=== PATIENT | female | born 1965 | race Caucasian/White ===

== ENCOUNTER 2020-03-18 13:44 | Outpatient (REF) | payer MEDICARE, MEDICAID, SELFPAY ==
--- NOTE | 2020-03-18 13:49 | MM_ITS ---
EXAMINATION: MM DIAGNOSTIC DIGITAL BREAST TOMOSYNTHESIS, right breast calcifications CLINICAL INFORMATION: Right breast follow up for calcifications. Screening left breast mammography. The lifetime risk of breast cancer based on the Tyrer-Cuzick Model is 5.9%. COMPARISON: Mammography: August 09, 2019 and studies dating back to August 25, 2011 TECHNIQUE: Digital breast tomosynthesis is performed in both the craniocaudal and mediolateral oblique views along with computer-aided detection (CAD). Synthesized 2D images are generated from the tomosynthesis. Spot magnification views of the right breast in craniocaudal and 90 degree mediolateral views also performed. FINDINGS: There are scattered areas of fibroglandular density (ACR BI-RADS breast composition Category b). Within the left breast there are no new abnormal dominant mass or suspicious grouping of microcalcifications identified. Within the right breast upper outer aspect are again noted to be stable grouping of calcifications which 6 month follow-up magnification views of the right breast are recommended. Results are provided to the patient at time of visit by the technologist. MM/MM tomosynthesis diagnostic BI IMPRESSION: Stable right breast calcifications. ASSESSMENT: BI-RADS BI-RADS 3 RECOMMENDATION: Diagnostic mammography in 6 months. This patient's information was entered into a reminder system with a target due date for their next mammogram.
== END 2020-03-18 13:45 | disposition home or self-care (01) ==
LOC: HO.MAMMO 13:44
PROVIDERS: PCP Family Medicine; Visit Provider Family Medicine
DX: R92.1 Mammographic calcification found on diagnostic imaging of breast (principal)
CPT/HCPCS: 77062; 77066

== ENCOUNTER 2020-08-14 13:25 | Outpatient (REF) | payer MEDICARE, MEDICAID, SELFPAY ==
--- NOTE | ~2020-08-14 | CT_ITS ---
EXAMINATION: CT CHEST SCREENING CLINICAL INFORMATION: Smoking history. COMPARISON: None. TECHNIQUE: Multidetector volumetric CT imaging of the chest is performed without contrast using low dose technique. Additional 2-D coronal and sagittal reformatted images and axial 3-D maximum intensity projection (MIP) images are generated on the CT workstation. This CT examination was performed using dose optimization techniques as appropriate, variously including the following: *Automated exposure control *Adjustment of mA and/or kV according to patient size (this includes techniques or standardized protocols for targeted exams where dose is matched to indication/reason for exam; i.e. extremities or head) *Use of iterative reconstruction technique DLP: 52 mGy-cm FINDINGS: LUNGS: There is a 4 mm nodule in the lingula axial image 206 series 6. There is a 4 mm nodule in the right middle lobe axial image 216 series 6. There is a 4 mm calcified lingular nodule axial image 205 series 6. There is a 3 mm calcified nodule in the right lower lobe axial image 235 series 6. There is a 2 mm peripheral or subpleural nodule in the left lower lobe axial image 240 series 6. There is a 4 mm peripheral or subpleural right lower lobe nodule adjacent to the major fissure axial image 237 series 6. There is a 3 mm right lower lobe nodule adjacent to the diaphragmatic pleural surface axial image 234 series 6. MEDIASTINUM: The mediastinum is normal. PLEURA: There is no pleural effusion. No pleural mass or thickening. AXILLA: No lymphadenopathy. UPPER ABDOMEN: Unremarkable. OSSEOUS STRUCTURES: Unremarkable. CT/CT lung screening IMPRESSION: Small pulmonary nodules. ASSESSMENT: Lung-RADS category 2. RECOMMENDATION: Annual low dose chest CT followup in 1 year recommended.
== END 2020-08-14 13:26 | disposition home or self-care (01) ==
LOC: HO.CT 13:25
PROVIDERS: PCP Family Medicine; Visit Provider Physician Assistant Medical
DX: Z12.2 Encounter for screening for malignant neoplasm of respiratory organs (principal); Z87.891 Personal history of nicotine dependence
CPT/HCPCS: 71271

== ENCOUNTER 2020-09-14 12:54 | Outpatient (REF) | payer MEDICARE, MEDICAID, SELFPAY ==
--- NOTE | ~2020-09-14 | MM_ITS ---
EXAMINATION: MM DIAGNOSTIC DIGITAL BREAST TOMOSYNTHESIS, RIGHT CLINICAL INFORMATION: Short interval six-month follow-up probable benign right breast calcifications posterior 11:00 position. The lifetime risk of breast cancer based on the Tyrer-Cuzick Model is 10%. COMPARISON: Mammography: 03/18/2020, 08/09/2019, 01/08/2019, 11/29/2018 (BI-RADS 0) 11/21/2017 TECHNIQUE: Digital breast tomosynthesis is performed in both the craniocaudal and mediolateral oblique views along with computer-aided detection (CAD). Synthesized 2D images are generated from the tomosynthesis. Additional magnification right CC x2 and magnification right ML views are obtained. FINDINGS: There are scattered areas of fibroglandular density (ACR BI-RADS breast composition Category b). There is no developing density or interval mass or architectural abnormality. The axilla and skin contours are unremarkable. The loosely grouped calcifications posterior 11:00 position are fine and ill-defined an amorphous. They appear increased in number from prior studies and encompass an area 1.3 cm in length. Stereotactic sampling is recommended. Results are discussed with the patient at time of visit, using an reinforcing steel worker. MM/MM tomosynthesis diagnostic RT IMPRESSION: Ill-defined amorphous calcifications posterior 11:00 position. ASSESSMENT: BI-RADS 4: Suspicious RECOMMENDATION: Stereotactic sampling right breast calcifications. This patient's information was entered into a reminder system with a target due date for their next mammogram.
== END 2020-09-14 12:55 | disposition home or self-care (01) ==
LOC: HO.MAMMO 12:54
PROVIDERS: Visit Provider Family Medicine
DX: R92.1 Mammographic calcification found on diagnostic imaging of breast (principal)
CPT/HCPCS: 77061; 77065

== ENCOUNTER 2020-09-22 09:12 | Outpatient (REF) | payer MEDICARE, MEDICAID, SELFPAY ==
--- NOTE | ~2020-09-22 | MM_ITS ---
EXAMINATION: STEREOTACTIC TOMOSYNTHESIS-GUIDED VACUUM-ASSISTED BREAST BIOPSY, RIGHT SPECIMEN RADIOGRAPH, RIGHT POST PROCEDURE DIGITAL MAMMOGRAM, RIGHT CLINICAL INFORMATION: Loosely grouped amorphus fine calcifications posterior 11:00 right breast. COMPARISON: Mammography 09/14/2020. TECHNIQUE/PROCEDURE: Hospital provided educational interpreter assisted for the consent. Informed consent was obtained from the patient after discussion of the benefits, risks, and alternatives to biopsy today. Patient appeared to understand. Gave opportunity for questions. Patient signed consent form. BIOPSY TABLE: [employer] Affirm Prone Biopsy System. LESION: Fine amorphous calcifications posterior 11:00 right breast. LOCAL ANESTHESIA: 6 mL 1% lidocaine; 12 mL 1% lidocaine with epinephrine. DERMATOTOMY: Single skin drake dermatotomy performed. NEEDLE: Flashstockiva 9-gauge vacuum assisted core biopsy device. APPROACH: craniocaudal. TARGETING: Digital breast tomosynthesis used for targeting. CORES: 8. CLIP: AccelOpsurMark T-shaped marker. SPECIMEN RADIOGRAPH: Specimen radiograph is taken in separate room using digital mammography. The index calcifications are in the excised cores. There are over 15 calcifications in the cores. POST PROCEDURE UNILATERAL DIGITAL MAMMOGRAM: The post biopsy mammogram is performed in separate room using separate digital mammography equipment from the biopsy procedure. CC and ML views are obtained. There are scattered areas of fibroglandular density (breast composition category: b). The clip marker is in position. The calcifications are markedly decreased at the biopsy site. No gross hematoma at biopsy site. The patient tolerated the procedure well. No immediate complications. Home instructions reviewed with the patient. Final pathology results are pending. MM/MM stereotactic biopsy RT IMPRESSION: 1. Digital tomosynthesis-guided core biopsy right breast with clip placement. 2. Specimen radiograph taken and post procedure mammogram. There is satisfactory positioning of the biopsy clip. 3. Final pathology results pending. An addendum report will be issued.
== END 2020-09-22 09:13 | disposition home or self-care (01) ==
LOC: HO.MAMMO 09:12
PROVIDERS: Visit Provider Surgery
DX: R92.8 Other abnormal and inconclusive findings on diagnostic imaging of breast (principal)
CPT/HCPCS: 19081; 88305; 99202

== ENCOUNTER → 2020-09-25 09:05 | Outpatient (BNVA) | payer MEDICARE, MEDICAID, SELFPAY | PROVIDERS: PCP Family Medicine; Referring Provider Family Medicine; Visit Provider Surgery | DX: R92.8 Other abnormal and inconclusive findings on diagnostic imaging of breast (principal) | CPT/HCPCS: 99212 ==

== ENCOUNTER → 2020-10-27 10:50 | Outpatient (BNVA) | payer MEDICARE, MEDICAID, SELFPAY | PROVIDERS: PCP Family Medicine; Referring Provider Family Medicine; Visit Provider Surgery | DX: R92.8 Other abnormal and inconclusive findings on diagnostic imaging of breast (principal) | CPT/HCPCS: 99212 ==

== ENCOUNTER 2020-11-07 16:46 | Emergency (ER) | payer MEDICARE, MEDICAID, SELFPAY ==
[2020-11-07 19:46] VITALS: PULSE 89; RESP 20; TEMP 37.7; O2SAT 97; BMI 31.1
--- NOTE | 2020-11-07 22:30 | ED_ITS ---
HPI - Back Pain/Injury General Chief Complaint: Back Pain/Injury Stated Complaint: Back pain Time Seen by Provider: 11/07/20 22:10 Source: patient Mode of arrival: ambulatory Limitations: language barrier (Greek speaking only, official court interpreter used) History of Present Illness HPI Narrative: 55-year-old female who presents emergency department for evaluation of right lower back pain that radiates to her right leg. The patient states she has had the pain for approximately 3 weeks. She does not recall any injury. She states that the pain has been intermittent and got worse over the past week. She describes the pain as a sharp, stabbing pain which is worse with movement. The pain radiates to her right buttocks area and down to her right knee. She denies any numbness or weakness of her lower extremities. She denies any loss of bowel or bladder control. The patient states that the pain is 10/10. She denied fever, chills, chest pain, shortness of breath, abdominal pain, nausea, vomiting, loss of bowel or bladder control. The patient states she has had similar pain in the past however this pain is much more persistent and more severe than her previous episodes of back pain. The patient took Tylenol with no relief for symptoms. The patient denies injection drug use but she states she does use intranasal cocaine and she last used cocaine in the beginning of this month. Related Data Home Medications Medication Instructions Recorded Confirmed alcohol swabs 1 pad TOPICAL QID 09/22/20 09/25/20 aspirin 81 mg tablet,delayed 81 mg PO QAM 09/22/20 09/22/20 release blood sugar diagnostic #10 ea 09/22/20 09/22/20 cholecalciferol (vitamin D3) 25 50 mcg PO QAM 09/22/20 09/22/20 mcg (1,000 unit) tablet clonidine HCl 0.2 mg tablet 0.2 mg PO BEDTIME 09/22/20 09/22/20 diltiazem HCl 360 mg capsule,24 360 mg PO QAM 09/22/20 09/22/20 hr,extended release dulaglutide 0.75 mg/0.5 mL 1.5 mg SUBCUT QWEEK 09/22/20 09/22/20 subcutaneous pen injector fluticasone propionate 50 1 spray INTRANASAL DAILY 09/22/20 09/22/20 mcg/actuation nasal spray,suspension hydrochlorothiazide 25 mg tablet 25 mg PO QAM 09/22/20 09/22/20 lancets 33 gauge #100 ea 09/22/20 09/22/20 levothyroxine 137 mcg tablet 137 mcg PO QAM 09/22/20 09/22/20 lisinopril 40 mg tablet 40 mg PO QAM 09/22/20 09/22/20 metformin 500 mg tablet,extended 1,000 mg PO 09/22/20 09/22/20 release 24 hr montelukast 10 mg tablet 10 mg PO QPM 09/22/20 09/22/20 omeprazole 20 mg capsule,delayed 20 mg PO BID 09/22/20 09/22/20 release pravastatin 80 mg tablet 80 mg PO BEDTIME 09/22/20 09/22/20 tiotropium bromide 18 mcg capsule 1 cap INHALATION DAILY 09/22/20 09/22/20 with inhalation device Previous Rx's Medication Instructions Recorded cyclobenzaprine 10 mg tablet 10 mg PO TID PRN #20 tab 11/08/20 ketorolac 10 mg tablet 10 mg PO Q6H PRN 5 Days #15 tab 11/08/20 Allergies Allergy/AdvReac Type Severity Reaction Status Date / Time codeine [Codeine] Allergy Intermediate NAUSEA & Verified 11/07/20 22:59 VOMITING, vomiting fluoxetine [FLUOXETINE] Allergy Intermediate NAUSEA & Verified 11/07/20 22:59 VOMITING ibuprofen [IBUPROFEN] Allergy Intermediate NAUSEA & Verified 11/07/20 22:59 VOMITING Sulfa (Sulfonamide Allergy Mild itching Verified 11/07/20 22:59 Antibiotics) Review of Systems Review of Systems: Yes all other systems are reviewed and are negative [facility] Past Medical History [facility] Narrative: Social history: The patient smokes 15 cigarettes per day times 36 years. She denies alcohol use. She does use intranasal cocaine. She states she last started cocaine October 28, 2020. Medical History Hidradenitis suppurativa History of abnormal mammogram Hyperlipidemia Hypertension [place] (obstructive sleep apnea) Personal history of nicotine dependence Surgical History History of axillary surgery (~2013) History of bunionectomy (~2011) History of cholecystectomy History of colonoscopy (~2013) History of umbilical hernia repair (~2017) Family History Family History Paternal Aunt Breast cancer Mother Cancer of mandible Social History Social History Alcohol intake: current Alcohol intake frequency: does not drink Patient Tobacco Use Status: Current everyday Tobacco user Cigarette Packs Per Day: 0.75 Cigarettes Per Day: 15 Years Smoked: 36 (onset age 19) Advance Directives: No Patient : No Physical Exam Vital Signs: Vital Signs: Last Vital Signs Temp 99.2 F 11/07/20 22:57 Pulse 73 11/07/20 22:57 Resp 16 11/07/20 22:57 BP 157/72 H 11/07/20 22:57 Pulse Ox 98 11/07/20 22:57 Body Mass Index 31.1 Const: Other: Patient is lying on her left side and has difficulty moving secondary to her pain, she is pleasant and cooperative and answers all questions appropriately. HENMT: Head: Yes normal to inspection, Yes normocephalic and Yes atraumatic Ears: external ears normal General nose exam: Normal external nose present Face and sinus: Yes normal facial exam Mouth: Normal oral and palatal mucosa present Throat: Yes posterior oropharynx normal Eyes: General: appearance normal, both eyes and all related structures Pupils: Equal, round and reactive pupils present Neck: Neck: Yes normal visual inspection, Yes no lymphadenopathy, Yes trachea midline and Yes supple Chest: Chest palpation & inspection: normal inspection of the chest and normal palpation of entire chest wall Resp: Effort & Inspection: normal respiratory effort and able to speak in complete sentences Auscultation: clear to auscultation bilaterally Cardio: Rate: regular rate Rhythm: regular rhythm Heart sounds: S1 normal heart sound present, S2 normal heart sound present and no murmurs GI: Inspection: Yes normal to inspection Palpation (GI): Soft to palpation, nontender and no guarding Auscultation: normal bowel sounds : General: Yes no CVA tenderness Back/Spine/Pelvis: Back: no CVA tenderness Cervical Spine: normal cervical lordosis Thoracic/Lumbar Spine: thoracic and lumbar spine normal to inspection, paraspinal muscle tenderness on the right in the lower lumbar, thoraco-lumbar spasm on the right in the lower lumbar, No thoracic spinal tenderness and No lumbar spinal tenderness Skin: General skin exam: no rashes or lesions noted Neuro: Cranial nerves: Yes CN's II-XII intact bilaterally and Yes Equal, round and reactive pupils present Cognition (Neuro): normal cognition Motor exam (neuro): 5/5 motor strength present throughout Extrem: General: Yes normal to inspection Psych: Appearance: grossly normal Speech and movement: Normal speech and movement present Affect: normal affect Attitude: cooperative Thought process: Normal thought process present Thought content: Normal thought content present Course Course Course Narrative: 55-year-old female who presents emergency department for evaluation of right lower back pain that radiates down her right leg to her knee with no weakness or loss of sensation to the right lower extremity. The pain is been present for 3 weeks but worse over the past week. Physical examination did reveal tenderness with patient of the paraspinal muscles in the right lower lumbar area of her back. She had no point tenderness with palpation of her vertebrae. Her neurologic exam was nonfocal including a normal lower extremity sense exam. Patient's presentation and findings are consistent with lumbar sp rain with radiculopathy. Patient was treated with Toradol 60 mg IM and Flexeril 10 mg orally. 2358: The patient states that her pain is significantly better and is now 3/10. She is able to lie flat on her back without any difficulty. The patient will be started on Flexeril 10 mg 3 times a day as needed for pain and spasm and Toradol 10 mg 3 times a day as needed for pain. She was advised to use ice and heating pad. She was discharged home. The patient was given verbal and printed instructions prior to discharge. The patient was advised to follow-up with her PCP in 2 days and to return to the emergency department if her symptoms get worse or if she develops any new symptoms that are concerning to her. Discharge Plan Discharge Clinical Impression: Acute left lumbar radiculopathy Acute lumbar myofascial strain Qualifiers: Encounter type: initial encounter Qualified Code(s): S39.012A - Strain of muscle, fascia and tendon of lower back, initial encounter Patient Disposition: Home, Self-Care Instructions: Acute Low Back Pain (ED), Lumbar Radiculopathy (ED) Additional Instructions: Back Pain Discharge Instructions: Take Toradol (ketorolac) 10 mg pills, 1 pills every 6 hours as needed for pain. Take Tylenol (acetaminophen) 500 mg pills, 2 pills every 6 hours as needed for pain. Take Flexeril (cyclobenzaprine) 10 mg pills, 1 pill every 8 hours as needed for pain or muscle spasm. This is a prescription medication. This medication will make you sleepy, therefore do not drive or work while taking this medication. Apply ice for 15 minutes to the area that hurts on your back, then apply a heating a pad on low for 15 minutes. Do this 4-6 times a day to help reduce the pain in your back. Continue with normal activities as tolerated since staying in bed and not moving around will make your pain worse. You can also try over the counter lidocaine patches as directed on the box to help with the pain. Please return to the Emergency Department or see your doctor immediately if your symptoms get worse or if you develop any new symptoms that are concerning you. Follow up with your doctor in 2 day. Please read the other printed discharge instructions on back pain and lumbar radiculopathy Prescriptions: New cyclobenzaprine 10 mg tablet 10 mg PO TID PRN (Reason: muscle pain or spasm) Qty: 20 RF: 0 ketorolac 10 mg tablet 10 mg PO Q6H PRN (Reason: pain) 5 Days Qty: 15 RF: 0 No Action Trulicity 0.75 mg/0.5 mL pen injector 1.5 mg subcut QWEEK RF: 0 cholecalciferol (vitamin D3) 25 mcg (1,000 unit) tablet 50 mcg PO QAM RF: 0 Spiriva with HandiHaler 18 mcg capsule, w/inhalation device 1 cap inhalation DAILY RF: 0 metformin 500 mg tablet extended release 24 hr 1,000 mg PO RF: 0 fluticasone propionate 50 mcg/actuation spray,suspension 1 spray intranasal DAILY RF: 0 lisinopril 40 mg tablet 40 mg PO QAM RF: 0 hydrochlorothiazide 25 mg tablet 25 mg PO QAM RF: 0 alcohol swabs Pads, Medicated 1 pad topical QID RF: 0 montelukast 10 mg tablet 10 mg PO QPM RF: 0 omeprazole 20 mg capsule,delayed release(DR/EC) 20 mg PO BID RF: 0 pravastatin 80 mg tablet 80 mg PO BEDTIME RF: 0 clonidine HCl 0.2 mg tablet 0.2 mg PO BEDTIME RF: 0 aspirin 81 mg tablet,delayed release (DR/EC) 81 mg PO QAM RF: 0 diltiazem HCl 360 mg capsule,extended release 24 hr 360 mg PO QAM RF: 0 levothyroxine 137 mcg tablet 137 mcg PO QAM RF: 0 (DME) lancets 33 gauge misc See Rx Instructions ea topical QID Qty: 100 RF: 0 (DME) FreeStyle Lite Strips Strip See Rx Instructions ea Not Applicable QID Qty: 10 RF: 0
[2020-11-07 22:57] VITALS: BP 157/72; PULSE 73; RESP 16; TEMP 37.3; O2SAT 98
[2020-11-07] MEDS: Ketorolac Tromethamine 60 MG/2 ML VIAL IM (23:00)
[2020-11-07] MEDS: Cyclobenzaprine HCl 10 MG TABLET PO (23:01)
[2020-11-08 00:19] VITALS: BP 146/82; PULSE 72; RESP 16; O2SAT 98
== END 2020-11-08 00:38 | disposition home or self-care (01) ==
PROVIDERS: Emergency Provider Emergency Medicine Emergency Medical Services; PCP Family Medicine
DX: S39.012A Strain of muscle, fascia and tendon of lower back, initial encounter (principal); M54.16 Radiculopathy, lumbar region; M79.661 Pain in right lower leg; X58.XXXA Exposure to other specified factors, initial encounter; Y93.9 Activity, unspecified; Y92.9 Unspecified place or not applicable; Y99.9 Unspecified external cause status; Z79.899 Other long term (current) drug therapy; F17.210 Nicotine dependence, cigarettes, uncomplicated; Z71.6 Tobacco abuse counseling; Z79.82 Long term (current) use of aspirin
CPT/HCPCS: 99284; J1885

== ENCOUNTER 2021-04-29 09:04 | Outpatient (REF) | payer OTHER, SELFPAY ==
--- NOTE | ~2021-04-29 | CT_ITS ---
EXAMINATION: CT SOFT TISSUE NECK WITH CONTRAST CLINICAL INFORMATION: Localized swelling, mass, and lump within the neck. COMPARISON: None available. TECHNIQUE: Multidetector helical imaging was performed in the axial plane following the administration of 60 mL of Omnipaque 350 intravenous contrast. Multiple axial reformats and coronal/sagittal reconstructions were created the technologist workstation for review. This CT examination was performed using dose optimization techniques as appropriate, variously including the following: *Automated exposure control. *Adjustment of mA and/or kV according to patient size (this includes techniques or standardized protocols for targeted exams where dose is matched to indication/reason for exam; i.e. extremities or head). *Use of iterative reconstruction technique. DLP: 352 mGy-cm FINDINGS: No significant cutaneous thickening or subcutaneous inflammation. No discrete fluid collection within the deep tissues of the neck. The premaxillary, retromaxillary, pterygopalatine fossa, orbital apical, parapharyngeal, and prelaryngeal adipose tissue is maintained. The thyroid gland is atrophic. There is a poorly defined 1.4 cm region of hyperattenuation within the posterior aspect of the superficial lobe of the left parotid gland that is best demonstrated on precontrast imaging (this region is less distinguishable from normal parotid parenchyma on postcontrast imaging). Otherwise, normal appearance of the parotid and submandibular glands. No demonstrated salivary ductal dilatation. Scattered subcentimeter lymph nodes bilaterally, none of which are pathologically enlarged or abnormally enhancing. No demonstrated focal lesion or abnormal enhancement within the intrinsic tissues of the tongue or floor of mouth. Normal mucosal contours of the pharynx and larynx without abnormal enhancement. Normal appearance of the hyoid bone, thyroid cartilage, or cartilaginous trachea. The airways remains widely patent. No radiopaque foreign bodies. The atlantooccipital and atlantoaxial articulations remain well aligned. Straightening of the normal cervical lordosis. No evidence of acute fracture or subluxation of the cervical spine. The vertebral body heights are maintained. Advanced degenerative disc disease at C5-C6 and C6-C7. Moderate degenerative disc disease at C4-C5. Associated disc-osteophyte complex formation. There appears to be at least mild spinal canal stenosis from C4-C7. Facet and uncovertebral joint arthropathy leads to osseous encroachment on the neural foramina from C4-C7. No evidence of epidural collection. There is no prevertebral soft tissue swelling. Normal opacification of the cervical arterial and venous structures. The visualized portion of the skull base is without significant abnormalities. Mild mucosal thickening of the paranasal sinuses. The mastoid air cells and middle ear cavities are clear. Periapical lucencies associated with the maxillary and mandibular molars. CT Upper Chest: The visualized lung apices and upper mediastinum are within normal limits. CT/CT soft tissue neck w con IMPRESSION: 1. Poorly defined 1.4 cm region of hyperattenuation within the posterior aspect of the superficial lobe of the left parotid gland. This is best demonstrated on precontrast imaging as this abnormality is less distinguishable from normal parotid parenchyma on postcontrast imaging. This change may indicate an underlying primary salivary gland neoplasm or intraparotid lymph node. This may further characterized with directed ultrasound. 2. No additional focal lesion, collection, pathologically enlarged lymphadenopathy, or abnormal enhancement within the soft tissues of the neck. 3. Moderate to advanced multilevel degenerative spondyloarthropathy of the cervical spine. Most notably on this limited exam without intrathecal contrast, there appears to be at least mild spinal canal stenosis from C4-C7.
[2021-04-29 11:13] LABS: Blood Urea Nitrogen 12 mg/dL (9-16); Estimated Glomerular Filt Rate > 60
== END 2021-04-29 09:05 | disposition home or self-care (01) ==
LOC: HO.CT 09:04
PROVIDERS: PCP Family Medicine; Visit Provider Family Medicine
DX: E87.6 Hypokalemia (principal); R22.1 Localized swelling, mass and lump, neck
CPT/HCPCS: 36415; 70491; 82565; 84520; Q9967

== ENCOUNTER 2021-06-09 13:51 | Outpatient (REF) | payer OTHER, SELFPAY ==
--- NOTE | ~2021-06-09 | US_ITS ---
EXAMINATION: US SOFT TISSUE HEAD/NECK . CLINICAL INFORMATION: Lesion left parotid gland. COMPARISON: CT soft tissue neck with contrast 04/29/2021. TECHNIQUE: Linear transducer grayscale and color Doppler examination of the left parotid gland with right for comparison. FINDINGS: There is a 1.9 x 1.2 x 2.4 cm hypoechoic lesion in the posterior inferior superficial lobe of the left parotid gland. This has central linear increased echogenicity and central outflow and is questionable for intraparotid lymph node. This would be amenable to ultrasound-guided fine-needle aspiration if clinically indicated. The contralateral right parotid gland is normal-appearing. US/US soft tiss head and/or neck IMPRESSION: 1.9 x 1.2 x 2.4 cm hypoechoic lesion in the left posterior inferior superficial lobe of the parotid gland questionable for a lymph node.
== END 2021-06-09 13:52 | disposition home or self-care (01) ==
LOC: HO.US 13:51
PROVIDERS: PCP Family Medicine; Visit Provider Family Medicine
DX: K11.9 Disease of salivary gland, unspecified (principal)
CPT/HCPCS: 76536

== ENCOUNTER 2021-11-08 10:34 | Outpatient (REF) | payer OTHER, SELFPAY ==
--- NOTE | ~2021-11-08 | MM_ITS ---
EXAMINATION: MM SCREENING DIGITAL BREAST TOMOSYNTHESIS, BILATERAL CLINICAL INFORMATION: Screening. Asymptomatic. Benign right stereotactic biopsy 09/22/2020 (fibroadenomatous-like changes and calcifications, no atypia or malignancy). The lifetime risk of breast cancer based on the Tyrer-Cuzick Model is 10%. COMPARISON: Mammography: 09/22/2020 21, 09/14/2020, 03/18/2020, 08/09/2019, 11/29/2018 TECHNIQUE: Digital breast tomosynthesis is performed in both the craniocaudal and mediolateral oblique views along with computer-aided detection (CAD). Synthesized 2D images are generated from the tomosynthesis. Additional left CC view is provided. FINDINGS: There are scattered areas of fibroglandular density (ACR BI-RADS breast composition Category b). There is biopsy clip marker posterior 11:00 right breast with some residual punctate calcifications. There is no significant mass or architectural abnormality or abnormal calcifications in either breast. The axilla are unremarkable. MM/MM tomosynthesis screening BI IMPRESSION: No mammographic evidence of malignancy. ASSESSMENT: BI-RADS 2: Benign RECOMMENDATION: Routine annual mammography screening. This patient's information was entered into a reminder system with a target due date for their next mammogram.
== END 2021-11-08 10:35 | disposition home or self-care (01) ==
LOC: HO.MAMMO 10:34
PROVIDERS: PCP Family Medicine; Visit Provider Family Medicine
DX: Z12.31 Encounter for screening mammogram for malignant neoplasm of breast (principal)
CPT/HCPCS: 77063; 77067

== ENCOUNTER 2022-06-17 09:46 | Outpatient (REF) | payer OTHER, SELFPAY ==
--- NOTE | ~2022-06-17 | US_ITS ---
EXAMINATION: Ultrasound-guided fine-needle aspiration CLINICAL INFORMATION: Left parotid mass COMPARISON: None. TECHNIQUE: Procedure and risks and benefits including bleeding and infection were discussed with the patient and informed consent was obtained. The left side of the face was prepped and draped in usual sterile fashion. The skin and soft tissues were anesthetized with 1% lidocaine plain. Using ultrasound guidance and a 25-gauge needle, access to the hypoechoic lesion in the superficial lobe of the left parotid gland was obtained. 4 25-gauge FNA specimens were obtained. FINDINGS: There is a 1.6 x 0.9 x 1 cm hypoechoic lesion in the superficial lobe of the left parotid that was targeted for fine-needle aspiration. This has a central fatty hilum and central hilar flow suggestive of an intraparotid lymph node. US/US guided fine needle asp IMPRESSION: Ultrasound-guided left parotid fine-needle aspiration.
[2022-06-17] MEDS: Lidocaine HCl 1 % MPF 5 ML VIAL 10 ML SUBCUT (11:38)
== END 2022-06-17 09:47 | disposition home or self-care (01) ==
LOC: HO.US 09:46
PROVIDERS: Pathology Anatomic Pathology & Clinical Pathology; PCP Family Medicine; Visit Provider Family Medicine
DX: K11.9 Disease of salivary gland, unspecified (principal)
CPT/HCPCS: 10005; 36415; 88172; 88173; 88177; 88184; 88185

== ENCOUNTER 2022-08-25 10:24 | Outpatient (REF) | payer OTHER, SELFPAY ==
--- NOTE | ~2022-08-25 | XR_ITS ---
EXAMINATION: XR WRIST, LEFT CLINICAL INFORMATION: Pain and swelling, without injury. COMPARISON: None available. TECHNIQUE: PA, lateral, and oblique views of the left wrist. FINDINGS: Bony alignment and mineralization are normal. There is an ulnar positive variance. No fracture or dislocation is seen. There is no unusual bony erosive or productive change. The proximal and distal carpal rows are intact. There is chondrocalcinosis of the triangular ligament. No focal soft tissue swelling, gas or foreign body is seen. XR/XR wrist LT min 3V IMPRESSION: 1. No fracture or dislocation is seen. 2. There is chondrocalcinosis, which can be associated with CPPD. 3. There is no abnormal bone erosion.
== END 2022-08-25 10:25 | disposition home or self-care (01) ==
LOC: HO.HHCX 10:24
PROVIDERS: Visit Provider Family Medicine
DX: M25.432 Effusion, left wrist (principal)
CPT/HCPCS: 73110

== ENCOUNTER 2022-09-15 09:33 | Outpatient (REF) | payer OTHER, SELFPAY ==
--- NOTE | ~2022-09-15 | US_ITS ---
EXAMINATION: US ABDOMEN COMPLETE CLINICAL INFORMATION: Fatty liver. Hepatomegaly. COMPARISON: None available. TECHNIQUE: Real-time imaging of the abdominal viscera. Limited visualization due to bowel gas. FINDINGS: PANCREAS: Limited visualization. Imaged portion of pancreatic body demonstrates coarse, heterogeneous echotexture. ABDOMINAL AORTA: Nonaneurysmal. INFERIOR VENA CAVA: Visualized portions are normal. LIVER: Mildly, diffusely heterogeneous, coarse hepatic echotexture, possibly representing hepatocellular disease. Prominent main portal vein. Hepatomegaly, 22.2 cm. GALLBLADDER: Surgically absent. COMMON BILE DUCT: Normal in caliber measuring 0.7 cm in diameter. RIGHT KIDNEY: No hydronephrosis. No renal calculi. Limited visualization. The kidney measures 12.4 cm in maximum dimension. LEFT KIDNEY: Mild left renal caliectasis. No obstructing renal calculi. Limited visualization. The kidney measures 10.6 cm in maximum dimension. SPLEEN: Normal. The spleen measures 10.2 cm in maximum dimension. FREE FLUID: None. US/US abdomen complete IMPRESSION: 1. Imaged portion of pancreatic body demonstrate coarse, heterogeneous echotexture. Correlation with clinical and laboratory exam recommended to determine further management. 2. Mildly, diffusely heterogeneous, coarse hepatic echotexture, possibly representing hepatocellular disease. Prominent main portal vein. Hepatomegaly, 22.2 cm. Correlation with clinical and laboratory exam recommended to determine further management. 3. Mild left renal caliectasis. No obstructing renal calculi. 4. Gallbladder surgically absent.
== END 2022-09-15 09:34 | disposition home or self-care (01) ==
LOC: HO.US 09:33
PROVIDERS: Visit Provider Family Medicine
DX: R16.0 Hepatomegaly, not elsewhere classified (principal); K76.0 Fatty (change of) liver, not elsewhere classified
CPT/HCPCS: 76700

== ENCOUNTER 2022-09-21 09:11 | Outpatient (REF) | payer OTHER, SELFPAY ==
--- NOTE | ~2022-09-21 | CT_ITS ---
EXAMINATION: CT CHEST SCREENING CLINICAL INFORMATION: Nicotine dependence. COMPARISON: CT lung screening 08/14/2020. TECHNIQUE: Multidetector volumetric CT imaging of the chest is performed without contrast using low dose technique. Additional 2D coronal and sagittal reformatted images and axial 3D maximum intensity projection (MIP) images are generated on the CT workstation. This CT examination was performed using dose optimization techniques as appropriate, variously including the following: *Automated exposure control *Adjustment of mA and/or kV according to patient size (this includes techniques or standardized protocols for targeted exams where dose is matched to indication/reason for exam; i.e. extremities or head) *Use of iterative reconstruction technique. DLP: 51 mGy-cm. FINDINGS: LUNGS: The lungs are well-expanded and clear of acute process. There are punctate 1 mm calcifications scattered throughout both lungs likely small calcified granulomas. There is a calcified 4 mm nodule in the lingula image 238/6, stable. There is a 4 mm calcified nodule right middle lobe image 257/6, stable. There is a 3 mm nodule right lower lobe adjacent to the pericardium on axial image 314/6, stable. No additional nodules seen. MEDIASTINUM: The thyroid lobes are symmetrical and normal. Central trachea and the bronchi are widely patent. The heart size and the great vessels are normal caliber. CORONARY ARTERY CALCIFICATION: None visualized on this study. PLEURA: There is no pleural effusion. No pleural mass or thickening. AXILLA: No lymphadenopathy. UPPER ABDOMEN: Unremarkable OSSEOUS STRUCTURES: Unremarkable. CT/CT lung screening IMPRESSION: 1. Multiple 1 mm calcified small granulomas in both lungs. 2. 4 mm pulmonary nodules are stable. No new nodules seen. ASSESSMENT: Lung-RADS category 2: Benign RECOMMENDATION: Low-dose annual CT chest.
== END 2022-09-21 09:12 | disposition home or self-care (01) ==
LOC: HO.CT 09:11
PROVIDERS: Visit Provider Physician Assistant Medical
DX: Z12.2 Encounter for screening for malignant neoplasm of respiratory organs (principal); F17.210 Nicotine dependence, cigarettes, uncomplicated
CPT/HCPCS: 71271

== ENCOUNTER 2022-10-12 08:40 | Outpatient (AMB) | payer OTHER, SELFPAY ==
--- NOTE | 2022-10-12 08:49 | A.OFFVIS_ITS ---
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 Patient reports lump at the radial aspect of wrist that has been present since last year. She has difficulty and pain with lifting objects. Her palm feels hot to the touch. Denies injury, numbness or tingling. No previous tx. 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 She states she has a lump at the radial aspect of her wrist. She also c/o difficulty and pain with lifting objects and reports her palm feels warm to touch. [facility] Medical History (Updated 10/12/22 @ 09:21 by Tomasa Sterling PA-C) Hidradenitis suppurativa History of abnormal mammogram Hyperlipidemia Hypertension Nicotine dependence, cigarettes, uncomplicated [place] (obstructive sleep apnea) Surgical History (Updated 10/12/22 @ 09:08 by ALY Rooney) History of axillary surgery (~2013) History of bunionectomy (~2011) History of cholecystectomy History of colonoscopy (~2013) History of umbilical hernia repair (~2016) Hx of cataract surgery Family History Paternal Aunt Breast cancer Mother Cancer of mandible Social History (Updated 10/12/22 @ 09:00 by ALY Rooney) Alcohol intake: current Alcohol intake frequency: does not drink Patient Tobacco Use Status: Current everyday Tobacco user Cigarette Packs Per Day: 0.75 Cigarettes Per Day: 15 Years Smoked: 36 (onset age 19) Current occupational status: unemployed Female Reproductive History Menstrual Age of Menarche: 9 Review of Systems Const All systems reviewed & are unremarkable except as noted in HPI and below Physical Exam Vital Signs: BMI result Body Mass Index 28.8 Const General: cooperative, healthy appearing, comfortable, no acute distress, well developed and alert Orientation/consciousness: patient oriented x3 HEENT Head: Yes normal to inspection, Yes normocephalic and Yes atraumatic Eyes General: appearance normal, both eyes and all related structures Resp Effort & Inspection: normal respiratory effort and able to speak in complete sentences Cardio Rate: regular rate Peripheral pulses: Peripheral pulses 2+ throughout GI Palpation (GI): Soft to palpation Skin Lesions: no lesions Rashes: no rashes Neuro General: patient oriented x3 Extrem Other: Left wrist: Skin intact. There is a marble sized mass along the volar aspect of the wrist in line with the base of the thumb along the radial aspect of the wrist. The mass is firm and mobile. I can appreciate radial pulse over the mass, No tenderness to palpation. NVI. Assessment & Plan Assessment & Plan (1) Ganglion cyst of dorsum of left wrist: Code(s): M67.432 - Ganglion, left wrist Plan We discussed options which include excision ganglion cyst of the left wrist. I am going to order an MRI first for preoperative planning given that it is on the dorsal aspect of wrist in line with the radial artery. Once the scan is complete, I will have her return to see Dr. Hartley to discuss surgical intervention. Orders: Orders MR wrist RT wo con Today M67.432 - Ganglion, left wrist Patient Instructions: Scribed for Tomasa Sterling PA-C, by Keyon Dickerson certified medical coder, on 10/12/2022 at 9:00 AM EST. I, Tomasa Sterling PA-C, have personally reviewed and agree with the information entered by the scribe. Coding Level of Care Code New Pt Level 3 (52520) Diagnoses Ganglion cyst of dorsum of left wrist M67.432
[2022-10-12 08:59] VITALS: BMI 28.8
== END 2022-10-12 09:24 | disposition home or self-care (01) ==
PROVIDERS: PCP Family Medicine; Visit Provider Physician Assistant
DX: M67.432 Ganglion, left wrist (principal)
CPT/HCPCS: 99203

== ENCOUNTER → 2022-10-12 08:40 | Outpatient (BNVA) | payer OTHER, SELFPAY | PROVIDERS: PCP Family Medicine; Visit Provider Physician Assistant | DX: M67.432 Ganglion, left wrist (principal) | CPT/HCPCS: 99202 ==

== ENCOUNTER 2022-11-08 07:55 | Outpatient (AMB) | payer OTHER, SELFPAY ==
[2022-11-08 08:00] VITALS: BP 124/74; PULSE 74; O2SAT 98; BMI 28.8
--- NOTE | 2022-11-08 08:00 | MHC.OFFVIS ---
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 Patient states I have a cpap machine already from [facility] Tap And Die Maker Technician Required: Yes Tap And Die Maker Technician Name: Patti Castaneda Information Interpreted: non-clinical & clinical Allergies codeine [Codeine] Allergy (Intermediate, Verified 11/08/22 08:02) NAUSEA & VOMITING, vomiting fluoxetine [FLUOXETINE] Allergy (Intermediate, Verified 11/08/22 08:02) NAUSEA & VOMITING ibuprofen [IBUPROFEN] Allergy (Intermediate, Verified 11/08/22 08:02) NAUSEA & VOMITING Sulfa (Sulfonamide Antibiotics) Allergy (Mild, Verified 11/08/22 08:02) itching bactrin Allergy (Uncoded 11/08/22 08:02) Unknown HPI HPI Comments History of Present Illness Details 57 y/o female patient with [place] on CPAP presents for manage sleep apnea. Pt was diagnosed with [place] in 2009, severe degree of sleep apnea, the AHI was 52/hr. She has been using CPAP since 2009 but no repeat sleep study done, also still using the original CPAP. Pt's home care company was [facility], but she has notice that [facility] stopped the CPAP service for her due to insurance changes. She has not received CPAP supplies for a while. She uses CPAP nightly, states she sleeps well with CPAP and denies daytime sleepiness. Sleep questionnaire: Have you ever been diagnosed with a sleep disorder? Yes. Have you ever had a sleep study in the past? Yes, more than 5 years ago. Have you ever been treated for a sleep disorder? Yes, CPAP. Do you take medications for a sleep disorder? No. Do you snore? Yes. Do you wake up gasping at night? No. Do you have episodes of apneas? Yes. If yes, are they witnessed? Yes. Do you have episodes of nocturnal chest pain or dyspnea? No. Do you have difficulty initiating sleep? No. Do you have difficulty maintaining sleep? No. Do you wake up tired? No. Do you have headaches upon awakening? Yes, sometimes. Do you wake up with dry mouth or throat? Yes. Do you have GERD? Yes. Do you have nocturia? No. Do you have nocturnal leg cramps? Yes. Do you have symptoms of restless legs? Not really. Do you act out your dreams? No. Sleep hygiene questionnaire: What is your usual sleep routine? Usual bedtime is at 11:30 pm; Usual wake up time is at 9 am. Do you take naps? No. Is your sleep environment cool, dark, and quiet? Yes. Do you exercise? No. Do you take caffeine or other stimulants? Coke 1-2 L a day. Do you use electronics in bed? Yes, watch TV. What is your work schedule? N/A. Hypersomnolence questionnaire: Do you have daytime tiredness or fatigue? No. Do you easily fall asleep when inactive? No. Have you ever had episodes of sudden weakness? No. Have you ever had episodes of sudden weakness associated with strong emotions? No. [facility] Medical History (Updated 11/08/22 @ 08:25 by Flaca Waggoner CNP) Nicotine dependence, cigarettes, uncomplicated History of abnormal mammogram Hidradenitis suppurativa Hyperlipidemia Hypertension [place] (obstructive sleep apnea) Surgical History Hx of cataract surgery History of colonoscopy (~2013) History of bunionectomy (~2011) History of axillary surgery (~2013) History of cholecystectomy History of umbilical hernia repair (~2016) Family History Paternal Aunt Breast cancer Mother Cancer of mandible Social History Alcohol intake: current Alcohol intake frequency: does not drink Patient Tobacco Use Status: Current everyday Tobacco user Cigarette Packs Per Day: 0.75 Cigarettes Per Day: 15 Years Smoked: 36 (onset age 19) Current occupational status: unemployed Female Reproductive History Menstrual Age of Menarche: 9 Review of Systems Const All systems reviewed & are unremarkable except as noted in HPI and below ENT Reports Normal hearing present Neuro Reports Normal hearing present Physical Exam Vital Signs: Last Vital Signs Pulse 74 11/08/22 08:00 BP 124/74 11/08/22 08:00 Pulse Ox 98 11/08/22 08:00 Oxygen Delivery Method Room Air 11/08/22 08:00 BMI result Body Mass Index 28.8 Const General: cooperative Nutritional Appearance: overweight Orientation/consciousness: patient oriented x3 Limitations: language barrier Neck Neck: Yes full ROM and Yes supple Resp Effort & Inspection: normal respiratory effort and able to speak in complete sentences Neuro General: patient oriented x3, gait normal, moves all extremities and no focal motor deficits Cranial nerves: Yes Bilaterally intact EOM present, Yes Normal facial strength present, Yes Midline tongue present, Yes Symmetric palate elevation present, Yes Normal hearing present, Yes Ability to bilaterally rotate head present and Yes Ability to bilaterally elevate shoulders present Cognition (Neuro): normal cognition Gait exam (Neuro): Normal gait present Motor exam (neuro): 5/5 motor strength present throughout, Pronator motor function not present and no tremor noted Psych Appearance: grossly normal Mental Status: mental status grossly normal Affect: normal affect Attitude: cooperative Assessment & Plan Assessment & Plan (1) [place] (obstructive sleep apnea): Comment: (On CPAP for Severe [place], 52 obstructive apneas on 11/17/09 sleep test) Code(s): G47.33 - Obstructive sleep apnea (adult) (pediatric) Plan Pt is advised to undergo home sleep study to assess for sleep apnea and new CPAP. Will f/u with pt after study to discuss results and appropriate treatment options. Sleep hygiene education provided. Continue to use current CPAP until she has new PCAP. Advised patient to limit soda intake. Pt to call with any worsening concerns or questions. Orders: Orders RT home sleep study Today G47.33 - Obstructive sleep apnea (adult) (pediatric) Coding Level of Care Code New Pt Level 3 (69937) Diagnoses [place] (obstructive sleep apnea) G47.33
== END 2022-11-08 08:27 | disposition home or self-care (01) ==
LOC: HO.HSMC 07:55
PROVIDERS: PCP Family Medicine; Visit Provider Nurse Practitioner Family
DX: G47.33 Obstructive sleep apnea (adult) (pediatric) (principal)
CPT/HCPCS: 99203

== ENCOUNTER → 2022-11-08 07:55 | Outpatient (BNVA) | payer OTHER, SELFPAY | PROVIDERS: PCP Family Medicine; Visit Provider Nurse Practitioner Family | DX: G47.33 Obstructive sleep apnea (adult) (pediatric) (principal); Z99.89 Dependence on other enabling machines and devices | CPT/HCPCS: 99202 ==

== ENCOUNTER 2022-11-22 09:50 | Outpatient (REF) | payer OTHER, SELFPAY ==
--- NOTE | ~2022-11-22 | MM_ITS ---
EXAMINATION: MM SCREENING DIGITAL BREAST TOMOSYNTHESIS, BILATERAL CLINICAL INFORMATION: Screening. Asymptomatic. COMPARISON: Mammography: This study is compared with prior exams dating back to 2019. TECHNIQUE: Digital breast tomosynthesis is performed in both the craniocaudal and mediolateral oblique views along with computer-aided detection (CAD). Synthesized 2D images are generated from the tomosynthesis. FINDINGS: There are scattered areas of fibroglandular density (ACR BI-RADS breast composition Category b). There are no significant masses, abnormal calcifications, or other abnormalities. There are 2 tissue markers present in the right breast from prior benign percutaneous biopsies. MM/MM tomosynthesis screening BI IMPRESSION: No mammographic evidence of malignancy. ASSESSMENT: BI-RADS BI-RADS 2 - Benign Findings RECOMMENDATION: Routine annual mammography screening. 1 year F/U This examination should not preclude the clinical evaluation of a suspicious palpable abnormality. This patient's information was entered into a reminder system with a target due date for their next mammogram.
== END 2022-11-22 09:51 | disposition home or self-care (01) ==
LOC: HO.MAMMO 09:50
PROVIDERS: PCP Family Medicine; Visit Provider Family Medicine
DX: Z12.31 Encounter for screening mammogram for malignant neoplasm of breast (principal)
CPT/HCPCS: 77063; 77067

== ENCOUNTER → 2022-11-22 10:15 | Outpatient (BNV) | payer OTHER, SELFPAY | PROVIDERS: PCP Family Medicine; Visit Provider Radiology Diagnostic Radiology | DX: Z12.31 Encounter for screening mammogram for malignant neoplasm of breast (principal) | CPT/HCPCS: 77063; 77067 ==

== ENCOUNTER → 2022-12-14 14:14 | Outpatient (REF) | payer OTHER, SELFPAY | LOC: HO.SL 14:14 | PROVIDERS: PCP Family Medicine; Visit Provider Nurse Practitioner Family | DX: G47.33 Obstructive sleep apnea (adult) (pediatric) (principal) | CPT/HCPCS: 95806 ==

== ENCOUNTER → 2022-12-14 14:31 | Outpatient (BNV) | payer OTHER, SELFPAY | PROVIDERS: PCP Family Medicine; Visit Provider Psychiatry & Neurology Neurology | DX: G47.33 Obstructive sleep apnea (adult) (pediatric) (principal) | CPT/HCPCS: 95806 ==

== ENCOUNTER 2023-01-25 16:36 | Outpatient (REF) | payer OTHER, SELFPAY ==
--- NOTE | ~2023-01-25 | MR_ITS ---
EXAMINATION: MRI OF THE LEFT WRIST WITHOUT CONTRAST CLINICAL INFORMATION: Ganglion cyst left wrist. COMPARISON: None available. TECHNIQUE: MRI of the left wrist is performed without contrast on a high-field MRI scanner. FINDINGS: The exam is limited as there is motion degrading artifact throughout the examination. There is a lobulated fluid collection abutting the volar radial aspect of the wrist measuring 1.4 cm craniocaudal up to 12 mm transverse and 5 mm AP. No additional masses or cysts. BONE/CARTILAGE: Along the proximal ulnar aspect of the lunate there is an area of subchondral cystic change, edema and sclerosis at the radiocarpal/ulnocarpal articulation. This area measures up to 5 mm transverse. No effusion. Remaining bone and joints are normal. TRIANGULAR FIBROCARTILAGE COMPLEX: Evaluation is limited because of the motion degrading artifact. There is a suggestion of a full-thickness or partial-thickness tear of the central aspect of the disc. INTRAOSSEOUS LIGAMENTS: Limited evaluation because of artifact. No definite tear. No widening of the articulations. MUSCLES/TENDONS: Normal. NEUROVASCULAR STRUCTURES: Normal. SUBCUTANEOUS SOFT TISSUES: Normal. MR/MR wrist LT wo con IMPRESSION: Exam is significantly limited because of image degrading motion artifact. 1. Lobulated fluid collection abutting the volar radial aspect of the wrist compatible with a ganglion cyst or synovial recess. 2. Focal arthrosis of the radiocarpal/ulnocarpal articulation. Possible tear of the triangular fibrocartilage. In combination these findings raise the question of ulnocarpal impaction syndrome.
== END 2023-01-25 16:37 | disposition home or self-care (01) ==
LOC: HO.MRI 16:36
PROVIDERS: PCP Family Medicine; Visit Provider Physician Assistant
DX: M67.432 Ganglion, left wrist (principal)
CPT/HCPCS: 73221

== ENCOUNTER 2023-02-13 13:27 | Outpatient (AMB) | payer OTHER, SELFPAY ==
[2023-02-13 13:28] VITALS: BMI 28.8
--- NOTE | 2023-02-13 13:28 | A.OFFVIS_ITS ---
Intake Vital Signs 02/13/23 13:28 Height 5 ft 4 in Weight 168 lb BMI 28.8 Intake Visit Reasons: ov-MRI Wrist LT review Intake Note: Jennifer a 57 year old female presents today for an MRI review of left wrist. Patient reports that she continues to have pain/discomfort as well as weakness with lifting items. 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 She continues to have pain and discomfort in her wrist as well as weakness with lifting items. She has a history of diabetes. She is unaware of her most recent A1c. [facility] Medical History (Updated 11/08/22 @ 08:25 by Flaca Waggoner CNP) Nicotine dependence, cigarettes, uncomplicated History of abnormal mammogram Hidradenitis suppurativa Hyperlipidemia Hypertension [place] (obstructive sleep apnea) Surgical History Hx of cataract surgery History of colonoscopy (~2013) History of bunionectomy (~2011) History of axillary surgery (~2013) History of cholecystectomy History of umbilical hernia repair (~2016) Family History Paternal Aunt Breast cancer Mother Cancer of mandible Social History Alcohol intake: current Alcohol intake frequency: does not drink Patient Tobacco Use Status: Current everyday Tobacco user Cigarette Packs Per Day: 0.75 Cigarettes Per Day: 15 Years Smoked: 36 (onset age 19) Current occupational status: unemployed Female Reproductive History Menstrual Age of Menarche: 9 Review of Systems Const All systems reviewed & are unremarkable except as noted in HPI and below Physical Exam Vital Signs: BMI result Body Mass Index 28.8 Const General: cooperative, healthy appearing, comfortable, no acute distress, well developed and alert Orientation/consciousness: patient oriented x3 HEENT Head: Yes normal to inspection, Yes normocephalic and Yes atraumatic Eyes General: appearance normal, both eyes and all related structures Resp Effort & Inspection: normal respiratory effort and able to speak in complete sentences Cardio Rate: regular rate Peripheral pulses: Peripheral pulses 2+ throughout GI Palpation (GI): Soft to palpation Skin Lesions: no lesions Rashes: no rashes Neuro General: patient oriented x3 Extrem Other: Left wrist: Skin intact. There is a marble sized mass along the volar aspect of the wrist in line with the base of the thumb along the radial aspect of the wrist. The mass is firm and mobile. I can appreciate radial pulse over the mass, No tenderness to palpation. NVI. Results Reviewed Results Reviewed: MR/MR wrist LT wo con IMPRESSION: Exam is significantly limited because of image degrading motion artifact. 1. Lobulated fluid collection abutting the volar radial aspect of the wrist compatible with a ganglion cyst or synovial recess. 2. Focal arthrosis of the radiocarpal/ulnocarpal articulation. Possible tear of the triangular fibrocartilage. In combination these findings raise the question of ulnocarpal impaction syndrome. Assessment & Plan Assessment & Plan (1) Ganglion cyst of dorsum of left wrist: Code(s): M67.432 - Ganglion, left wrist Plan We discussed options which include conservative vs operative treatment. Since this has been present for several months and it is causing discomfort the decision was made to undergo surgical intervention. We discussed risk, benefits and alternatives. Risk including but not limited to infection, stiffness, recurrence of mass and pain. She does understand all this and would like to proceed with excision biopsy of left wrist with Dr. Hartley. She will be booked accordingly. Patient Instructions: Scribed for Tomasa Sterling PA-C, by Keyon Dickerson biomedical scientist, on 02/13/2023 at 1:30 PM Tomasa ESTRADA PA-C, have personally reviewed and agree with the information entered by the scribe. Coding Level of Care Code Est Pt Level 3 (17729) Diagnoses Ganglion cyst of dorsum of left wrist M67.432
== END 2023-02-13 13:55 | disposition home or self-care (01) ==
PROVIDERS: PCP Family Medicine; Visit Provider Physician Assistant
DX: M67.432 Ganglion, left wrist (principal)
CPT/HCPCS: 99213

== ENCOUNTER → 2023-02-13 13:27 | Outpatient (BNVA) | payer OTHER, SELFPAY | PROVIDERS: PCP Family Medicine; Visit Provider Physician Assistant | DX: M67.432 Ganglion, left wrist (principal) | CPT/HCPCS: 99212 ==

== ENCOUNTER 2023-04-12 14:09 | Outpatient (REF) | payer OTHER, SELFPAY ==
[2023-04-12 16:06] LABS: MANUAL DIFF FLAG NO
[2023-04-12 17:47] LABS: Basophils Absolute Auto 0.1 X10*3/uL (0.0-0.2); Basophils Percent Auto 0.7 % (0-2); Eosinophils Absolute Auto 0.4 X10*3/uL (0.0-0.4); Eosinophils Percent Auto 3.2 % (0-4); Hematocrit 34.1 % (37.0-47.0); Hemoglobin 11.1 g/dl (12.0-16.0); Imm Gran Abs Auto 0.06 X10*3/uL (0.00-0.03); Imm Gran Pct Auto 0.5 % (0.0-0.4); Lymphocytes Absolute Auto 3.3 X10*3/uL (1.2-4.9); Lymphocytes Percent Auto 28.6 % (20-40); Mean Corpuscular HGB Conc 32.6 g/dl (31.0-35.0); Mean Corpuscular Hemoglobin 29.5 pg (27.0-33.0); Mean Corpuscular Volume 90.7 fL (80.0-98.0); Mean Platelet Volume 11.9 fL (9.4-12.3); Monocytes Absolute Auto 0.4 X10*3/uL (0.1-1.2); Monocytes Percent Auto 3.7 % (2-11); Neutrophils Absolute Auto 7.3 x10*3/uL (2.0-8.3); Neutrophils Percent Auto 63.3 % (45-73); Platelet Count 306 X10*3/uL (160-400); Red Blood Count 3.76 X10*6/uL (4.20-5.50); Red Cell Distribution Width 13.3 % (11.0-16.0); White Blood Count 11.6 X10*3/uL (4.8-10.8)
[2023-04-12 18:40] LABS: Alanine Aminotransferase 12 U/L (0-31); Albumin Level 4.1 g/dL (3.5-5.0); Alkaline Phosphatase 91 U/L (39-117); Anion Gap 17 (12-20); Aspartate Amino Transferase 17 U/L (5-31); Bilirubin Total 0.3 mg/dL (0.0-1.0); Blood Urea Nitrogen 25 mg/dL (9-16); Calcium 9.5 mg/dL (8.4-10.2); Carbon Dioxide 27 mmol/L (22-29); Chloride 102 mmol/L (96-108); Estimated Glomerular Filt Rate 54; Glucose Random 106 mg/dL (60-115); Lipase 36 U/L (8-78); Potassium 3.2 mmol/L (3.3-5.1); Sodium 143 mmol/L (135-145)
[2023-04-12 18:57] LABS: Amylase 51 U/L (28-100); Gamma Glutamyl Transpeptidase 37 U/L (7-33)
[2023-04-12 19:04] LABS: Ferritin 61 ng/mL (10-250)
[2023-04-13 03:58] LABS: HBS Num1 1.44 mIU/mL (0-7.99); HBc Num1 0.14 S/CO (0.00-0.79); HIV AB/AG Nonreactive (Nonreactive); HIV Num 1 0.07 S/CO (0.00-0.99); Hepatitis B Core Antibody Nonreactive (Nonreactive); Hepatitis B Surface Antigen Negative (Negative); ~HepC Num1 0.11 S/CO (0.00-0.79); ~Hepatitis B Surface Antibody NONREACTIVE (Nonreactive); ~Hepatitis C Antibody Nonreactive (Nonreactive)
[2023-04-13 04:49] LABS: Hepatitis A Antibody IgM 0.58 Index (0-0.79); ~Hepatitis A Antibody IgM Nonreactive (Nonreactive)
[2023-04-13 13:03] LABS: Alpha Fetoprotein 1.6 ng/mL
[2023-04-13 17:54] LABS: Transglutaminase Ab IgG 1.4 U/mL; Transglutaminase IgA <1.0 U/mL
[2023-04-17 11:23] LABS: Smooth Muscle Antibody <20 U (<20)
[2023-04-19 11:48] LABS: Mitochondrial Antibodies NEGATIVE (NEGATIVE)
[2023-04-20 08:47] LABS: Liver Fibrosis Score 0.17
[2023-04-20 08:48] LABS: Liver Fibrosis Stage F0
[2023-04-20 08:49] LABS: Nec Inflam Act Grade A0; Nec Inflam Act Score 0.03
[2023-04-20 08:50] LABS: FIB-Apolipoprotein A1 168
[2023-04-20 08:51] LABS: FIB-GGT 28; FIB-Total Bilirubin 0.3
[2023-04-20 08:52] LABS: FIB-ALT 13
[2023-04-20 08:53] LABS: Phosphatidylethanol 16:0-18:1 NEGATIVE
[2023-04-20 08:54] LABS: Phosphatidylethanol 16:0-18:2 NEGATIVE
== END 2023-04-12 14:10 | disposition home or self-care (01) ==
LOC: HO.LAB 14:09
PROVIDERS: PCP Family Medicine; Referring Provider Family Medicine; Visit Provider Nurse Practitioner
DX: R74.01 Elevation of levels of liver transaminase levels (principal); F19.10 Other psychoactive substance abuse, uncomplicated; E11.9 Type 2 diabetes mellitus without complications; K86.89 Other specified diseases of pancreas; K86.81 Exocrine pancreatic insufficiency; R16.0 Hepatomegaly, not elsewhere classified
CPT/HCPCS: 80053; 80321; 81596; 82105; 82150; 82728; 82977; 83690; 85025; 86015; 86364; 86381; 86704; 86706; 86709; 86803; 87340; 87389; 99212

== ENCOUNTER 2023-04-12 14:09 | Outpatient (AMB) | payer OTHER, SELFPAY ==
--- NOTE | 2023-04-12 14:11 | A.OFFVIS_ITS ---
Intake Vital Signs 3 04/12/23 14:14 Height 5 ft 4 in Weight 163 lb 9.328 oz BMI 28.1 BP 177/89 H Blood Pressure Location Lt brachial Position Sitting Pulse 98 Intake Visit Reasons: Hepatomegaly Intake Note: Patient presents to in office visit today as a new patient for hepatomegaly. CC: Patient reports seeing white balls that look like little eggs in her stools and also sometimes something that looks like a green grape . Per patient she sometimes has diarrhea and other times constipation. Academic Services Coordinator Required: No Accompanied by: Self / Same As Patient Allergies codeine [Codeine] Allergy (Intermediate, Verified 04/12/23 14:21) NAUSEA & VOMITING, vomiting fluoxetine [FLUOXETINE] Allergy (Intermediate, Verified 04/12/23 14:21) NAUSEA & VOMITING ibuprofen [IBUPROFEN] Allergy (Intermediate, Verified 04/12/23 14:21) NAUSEA & VOMITING Sulfa (Sulfonamide Antibiotics) Allergy (Mild, Verified 04/12/23 14:21) itching bactrin Allergy (Uncoded 02/13/23 13:33) Unknown HPI Hepatomegaly 2 HPI0 Details 57-year-old female here for initial eval uation of hepatomegaly. She is referred by Suzy Willoughby of [facility]. PMX [place] COPD/ASTHMA Diabetes Smoker Hypothyroid status post Graves disease Hidradentitis supra High cholesterol Hypertension Ganglion cyst left wrist CYSTOCELE Lumbar degenerative disc disease Fatty liver (followed in the past by Dr. Correa not seen since 2019) History of pilonidal cyst History of substance abuse * SURGICAL HISTORY Cataract surgery Colonoscopy-2013 bunionectomy Axillary surgery Cholecystectomy Umbilical hernia repair * ALLERGIES Codeine Prozac Ibuprofen Sulfa * SparCode LABS: none recent 2019 labs Total bilirubin 0.7 Alk-phos 82 AST/ALT 34/27 Platelets 244 Mitochondrial antibodies negative Smooth muscle antibodies negative Ferritin 120 Hepatitis a B and C screen negative HIV screen negative SINDHU 1:80 homogeneous Ultrasound of the abdomen 09/19/22 FINDINGS: PANCREAS: Limited visualization. Imaged portion of pancreatic body demonstrates coarse, heterogeneous echotexture. ABDOMINAL AORTA: Nonaneurysmal. INFERIOR VENA CAVA: Visualized portions are normal. LIVER: Mildly, diffusely heterogeneous, coarse hepatic echotexture, possibly representing hepatocellular disease. Prominent main portal vein. Hepatomegaly, 22.2 cm. GALLBLADDER: Surgically absent. COMMON BILE DUCT: Normal in caliber measuring 0.7 cm in diameter. RIGHT KIDNEY: No hydronephrosis. No renal calculi. Limited visualization. The kidney measures 12.4 cm in maximum dimension. LEFT KIDNEY: Mild left renal caliectasis. No obstructing renal calculi. Limited visualization. The kidney measures 10.6 cm in maximum dimension. SPLEEN: Normal. The spleen measures 10.2 cm in maximum dimension. FREE FLUID: None. US/US abdomen complete IMPRESSION: 1. Imaged portion of pancreatic body dem onstrate coarse, heterogeneous echotexture. Correlation with clinical and laboratory exam recommended to determine further management. 2. Mildly, diffusely heterogeneous, coar se hepatic echotexture, possibly representing hepatocellular disease. Prominent main portal vein. Hepatomegaly, 22.2 cm. Correlation with clinical and laboratory exam recommended to determine further management. 3. Mild left renal caliectasis. No obstr ucting renal calculi. 4. Gallbladder surgically absent. TODAY'S VISIT [place] #Mikayla Live Patient was followed by Dr. Correa in the past but has not been seen since 2019. She says that Dr[address] Correa was helping her with my bacteria in my stomach but she does not feel her sx were resolved. I am uncertain what bacteria she may be referring to. She feels she still has a bacteria because every time I move my bowels I see white balls like eggs. She says she only sees the white balls when she has diarrhea but her stools are usually soft to formed with occasional swings from CIC to diarrhea. The diarrhea happens about twice a week and depends on what I eat. She can not ID particular foods that cause it I have not paid attention. BUT she admits she likes very spicy foods. She does note that she feels periumbilical balls when she puts her hand on her stomach and lays down. This sounds like bowel spasm since it moves around. She does have a lot of gas and bloating, and past imaging studies shows pancreatic atrophy so it is likely she has EPI. Will start creon. She does not drink ETOH currently except on holidays. No FHX liver disease. She occasionally uses cocaine nasally. No IVDU. She is obese but has been losing weight with her Trulicity use. She does have marked central adiposity despite her BMI looking normal which likely plays into metabolic syndrome and the diagnosis of fatty liver. ROV 4 weeks. [facility] Medical History Transaminitis History of Graves' disease Pilonidal cyst Substance abuse [place] (obstructive sleep apnea) Nicotine dependence, cigarettes, uncomplicated History of abnormal mammogram Hidradenitis suppurativa Hyperlipidemia Hypertension Surgical History Hx of cataract surgery History of colonoscopy (~2013) History of bunionectomy (~2011) History of axillary surgery (~2013) History of cholecystectomy History of umbilical hernia repair (~2016) Family History Paternal Aunt Breast cancer Mother Cancer of mandible Other [place] (obstructive sleep apnea) Social History Alcohol intake: current Alcohol intake frequency: does not drink Patient Tobacco Use Status: Current everyday Tobacco user Cigarette Packs Per Day: 0.75 Cigarettes Per Day: 15 Years Smoked: 36 (onset age 19) Current occupational status: unemployed Female Reproductive History Menstrual Age of Menarche: 9 Review of Systems Eyes Reports exophthalmos ENT Reports Normal hearing present Neuro Reports Normal hearing present and Denies Abnormal speech present Physical Exam Vital Signs: Last Vital Signs Pulse 98 04/12/23 14:14 BP 177/89 H 04/12/23 14:14 BMI result Body Mass Index 28.1 Const General: cooperative, no acute distress, well developed and well groomed Nutritional Appearance: well nourished and obese (MARKED CENTRAL ADIPOSITY AND OBESITY DESPITE BMI) centrally obese Orientation/consciousness: oriented to person, oriented to place and oriented to time Limitations: language barrier HEENT Head: Yes normocephalic and Yes atraumatic Eyes General: appearance normal, both eyes and all related structures Pupils: Equal, round and reactive pupils present Neck Neck: Yes normal visual inspection and Yes no lymphadenopathy Thyroid: Thyroid normal Resp Effort & Inspection: normal respiratory effort and able to speak in complete sentences Auscultation: clear to auscultation bilaterally Cardio Rate: regular rate Rhythm: regular rhythm Heart sounds: Normal, physiologic split S2 sound present Peripheral pulses: radial pulses present and posterior tibial pulses present GI Inspection: No distended, Yes Abdominal panniculus present, Yes obesity, Yes scar and Yes striae Palpation (GI): Soft to palpation, nontender, no guarding, not rigid and No hepatosplenomegaly present Percussion: Yes normal to percussion Auscultation: normal bowel sounds Rectal Exam - Female: deferred Abdomen image: 2 1. surgical scars 2. Skin General skin exam: no rashes or lesions noted, turgor normal, skin not dry, no jaundice, No spider nevi and no striae Rashes: no rashes Nails: normal Neuro General: oriented to person, oriented to place and oriented to time Cranial nerves: Yes Equal, round and reactive pupils present and Yes Normal hearing present Speech: No Abnormal speech present Extrem General: Yes normal to inspection, No clubbing, No cyanosis and No edema Psych Thought process: Normal thought process present and not confabulating Thought content: Normal thought content present Insight: Good insight present (Psych) Judgement: Good judgement present (Psych) Results Reviewed Results Reviewed: 2020 labs Total bilirubin 0.7 Alk-phos 82 AST/ALT 34/27 Platelets 244 Mitochondrial antibodies negative Smooth muscle antibodies negative Ferritin 120 Hepatitis a B and C screen negative HIV screen negative SINDHU 1:80 homogeneous Ultrasound of the abdomen 09/19/22 FINDINGS: PANCREAS: Limited visualization. Imaged portion of pancreatic body demonstrates coarse, heterogeneous echotexture. ABDOMINAL AORTA: Nonaneurysmal. INFERIOR VENA CAVA: Visualized portions are normal. LIVER: Mildly, diffusely heterogeneous, coarse hepatic echotexture, possibly representing hepatocellular disease. Prominent main portal vein. Hepatomegaly, 22.2 cm. GALLBLADDER: Surgically absent. COMMON BILE DUCT: Normal in caliber measuring 0.7 cm in diameter. RIGHT KIDNEY: No hydronephrosis. No renal calculi. Limited visualization. The kidney measures 12.4 cm in maximum dimension. LEFT KIDNEY: Mild left renal caliectasis. No obstructing renal calculi. Limited visualization. The kidney measures 10.6 cm in maximum dimension. SPLEEN: Normal. The spleen measures 10.2 cm in maximum dimension. FREE FLUID: None. US/US abdomen complete IMPRESSION: 1. Imaged portion of pancreatic body demonstrate coarse, heterogeneous echotexture. Correlation with clinical and laboratory exam recommended to determine further management. 2. Mildly, diffusely heterogeneous, coarse hepatic echotexture, possibly representing hepatocellular disease. Prominent main portal vein. Hepatomegaly, 22.2 cm. Correlation with clinical and laboratory exam recommended to determine further management. 3. Mild left renal caliectasis. No obstructing renal calculi. 4. Gallbladder surgically absent. Assessment & Plan Assessment & Plan (1) Transaminitis: Comment: 2020 labs BASELINE Total bilirubin 0.7 Alk-phos 82 AST/ALT 34/27 Platelets 244 Mitochondrial antibodies negative Smooth muscle antibodies negative Ferritin 120 Hepatitis a B and C screen negative HIV screen negative SINDHU 1:80 homogeneous CURRENT LABS Ultrasound of the abdomen 09/19/22 FINDINGS: PANCREAS: Limited visualization. Imaged portion of pancreatic body demonstrates coarse, heterogeneous echotexture. ABDOMINAL AORTA: Nonaneurysmal. INFERIOR VENA CAVA: Visualized portions are normal. LIVER: Mildly, diffusely heterogeneous, coarse hepatic echotexture, possibly representing hepatocellular disease. Prominent main portal vein. Hepatomegaly, 22.2 cm. GALLBLADDER: Surgically absent. COMMON BILE DUCT: Normal in caliber measuring 0.7 cm in diameter. RIGHT KIDNEY: No hydronephrosis. No renal calculi. Limited visualization. The kidney measures 12.4 cm in maximum dimension. LEFT KIDNEY: Mild left renal caliectasis. No obstructing renal calculi. Limited visualization. The kidney measures 10.6 cm in maximum dimension. SPLEEN: Normal. The spleen measures 10.2 cm in maximum dimension. FREE FLUID: None. US/US abdomen complete IMPRESSION: 1. Imaged portion of pancreatic body demonstrate coarse, heterogeneous echotexture. Correlation with clinical and laboratory exam recommended to determine further management. 2. Mildly, diffusely heterogeneous, coarse hepatic echotexture, possibly representing hepatocellular disease. Prominent main portal vein. Hepatomegaly, 22.2 cm. Correlation with clinical and laboratory exam recommended to determine further management. 3. Mild left renal caliectasis. No obstructing renal calculi. 4. Gallbladder surgically absent. Code(s): R74.01 - Elevation of levels of liver transaminase levels (2) Substance abuse: Code(s): F19.10 - Other psychoactive substance abuse, uncomplicated (3) Diabetes: Code(s): E11.9 - Type 2 diabetes mellitus without complications (4) Pancreatic atrophy: Code(s): K86.89 - Other specified diseases of pancreas (5) Exocrine pancreatic insufficiency: Code(s): K86.81 - Exocrine pancreatic insufficiency Plan [place] #Mikayla Live Patient was followed by Dr. Correa in the past but has not been seen since 2019. She says that Dr[address] Correa was helping her with my bacteria in my stomach but she does not feel her sx were resolved. I am uncertain what bacteria she may be referring to. She feels she still has a bacteria because every time I move my bowels I see white balls like eggs. She says she only sees the white balls when she has diarrhea but her stools are usually soft to formed with occasional swings from CIC to diarrhea. The diarrhea happens about twice a week and depends on what I eat. She can not ID particular foods that cause it I have not paid attention. BUT she admits she likes very spicy foods. She does note that she feels periumbilical balls when she puts her hand on her stomach and lays down. This sounds like bowel spasm since it moves around. She does have a lot of gas and bloating, and past imaging studies shows pancreatic atrophy so it is likely she has EPI. Will start creon. She does not drink ETOH currently except on holidays. No FHX liver disease. She occasionally uses cocaine nasally. No IVDU. However, nasal cocaine use also poses the risk for contacting hepatitis C so will retest her for these pathogens. She is obese but has been losing weight with her Trulicity use. She does have marked central adiposity despite her BMI looking normal which likely plays into metabolic syndrome and the diagnosis of fatty liver. 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 I think a trial of Creon would be prudent. This likely is what is causing her gas and bloating. ROV 4 weeks. Orders: Orders 2 Comprehensive Met. Panel Today E11.9 - Type 2 diabetes mellitus without complications, F19.10 - Other psychoactive substance abuse, uncomplicated, R74.01 - Elevation of levels of liver transaminase levels Complete Blood Count Auto Diff Today E11.9 - Type 2 diabetes mellitus without complications, F19.10 - Other psychoactive substance abuse, uncomplicated, R74.01 - Elevation of levels of liver transaminase levels Alpha Fetoprotein Today E11.9 - Type 2 diabetes mellitus without complications, F19.10 - Other psychoactive substance abuse, uncomplicated, R74.01 - Elevation of levels of liver transaminase levels Gamma Glutamyl Transpeptidase Today E11.9 - Type 2 diabetes mellitus without complications, F19.10 - Other psychoactive substance abuse, uncomplicated, R74.01 - Elevation of levels of liver transaminase levels Transglutaminase IgA Today E11.9 - Type 2 diabetes mellitus without complications, F19.10 - Other psychoactive substance abuse, uncomplicated, R74.01 - Elevation of levels of liver transaminase levels Transglutaminase Ab IgG Today E11.9 - Type 2 diabetes mellitus without complications, F19.10 - Other psychoactive substance abuse, uncomplicated, R74.01 - Elevation of levels of liver transaminase levels Mitochondrial Antibody Today E11.9 - Type 2 diabetes mellitus without complications, F19.10 - Other psychoactive substance abuse, uncomplicated, R74.01 - Elevation of levels of liver transaminase levels Ferritin Today E11.9 - Type 2 diabetes mellitus without complications, F19.10 - Other psychoactive substance abuse, uncomplicated, R74.01 - Elevation of levels of liver transaminase levels Liver Fibrosis Pnl Today E11.9 - Type 2 diabetes mellitus without complications, F19.10 - Other psychoactive substance abuse, uncomplicated, R74.01 - Elevation of levels of liver transaminase levels US abdomen comp w elastography Today F19.10 - Other psychoactive substance abuse, uncomplicated, R74.01 - Elevation of levels of liver transaminase levels Hepatitis A,B,C Profile Today R74.01 - Elevation of levels of liver transaminase levels HIV Ab/Ag Today R74.01 - Elevation of levels of liver transaminase levels Phosphatidylethanol, Blood Today R74.01 - Elevation of levels of liver transaminase levels Pancreatic Elastase-1 Today E11.9 - Type 2 diabetes mellitus without complications, F19.10 - Other psychoactive substance abuse, uncomplicated, K86.81 - Exocrine pancreatic insufficiency, K86.89 - Other specified diseases of pancreas, R74.01 - Elevation of levels of liver transaminase levels Smooth Muscle Antibody Today E11.9 - Type 2 diabetes mellitus without complications, F19.10 - Other psychoactive substance abuse, uncomplicated, R74.01 - Elevation of levels of liver transaminase levels Amylase Today E11.9 - Type 2 diabetes mellitus without complications, F19.10 - Other psychoactive substance abuse, uncomplicated, K86.81 - Exocrine pancreatic insufficiency, K86.89 - Other specified diseases of pancreas, R74.01 - Elevation of levels of liver transaminase levels Lipase Today E11.9 - Type 2 diabetes mellitus without complications, F19.10 - Other psychoactive substance abuse, uncomplicated, K86.81 - Exocrine pancreatic insufficiency, K86.89 - Other specified diseases of pancreas, R74.01 - Elevation of levels of liver transaminase levels Medications: New 2 [id number] 36,000-114,000- 180,000 unit (Creon) administer with meals and/or snacks 2 caps PO BID 120 caps 6RF K86.81 - Exocrine pancreatic insufficiency, K86.89 - Other specified diseases of pancreas Coding Level of Care Code Est Pt Level 4 (16755) Diagnoses Transaminitis R74.01 Substance abuse F19.10 Diabetes E11.9 Pancreatic atrophy K86.89 Exocrine pancreatic insufficiency K86.81 Time Spent (min) 48
[2023-04-12 14:14] VITALS: BP 177/89; PULSE 98; BMI 28.1
== END 2023-04-12 14:52 | disposition home or self-care (01) ==
PROVIDERS: PCP Family Medicine; Referring Provider Family Medicine; Visit Provider Nurse Practitioner
DX: R74.01 Elevation of levels of liver transaminase levels (principal); F19.10 Other psychoactive substance abuse, uncomplicated; E11.9 Type 2 diabetes mellitus without complications; K86.89 Other specified diseases of pancreas; K86.81 Exocrine pancreatic insufficiency
CPT/HCPCS: 99214

== ENCOUNTER 2023-05-07 08:33 | Outpatient (REF) | payer OTHER, SELFPAY ==
[2023-05-15 23:09] LABS: Pancreatic Elastase-1 >500 mcg/g
== END 2023-05-07 08:34 | disposition home or self-care (01) ==
LOC: HO.LNP 08:33
PROVIDERS: Visit Provider Nurse Practitioner
DX: K86.81 Exocrine pancreatic insufficiency (principal); K86.89 Other specified diseases of pancreas; R74.01 Elevation of levels of liver transaminase levels; E11.9 Type 2 diabetes mellitus without complications; F19.10 Other psychoactive substance abuse, uncomplicated
CPT/HCPCS: 82656

== ENCOUNTER 2023-05-08 08:13 | Outpatient (REF) | payer OTHER, SELFPAY ==
--- NOTE | ~2023-05-08 | US_ITS ---
EXAMINATION: US COMPLETE ABDOMEN WITH LIVER ELASTOGRAPHY CLINICAL INFORMATION: Elevation of liver transaminase. COMPARISON: None available. TECHNIQUE: Real-time imaging of the abdominal viscera. Noninvasive ultrasound liver fibrosis assessment is performed using Delphine ElastPQ point quantification shear wave elastography (2D-SWE) with a C5-2 MHz transducer. Multiple elastography samples are obtained. FINDINGS: PANCREAS: The visualized pancreatic head and body are normal in appearance. The remainder of the pancreas is obscured from visualization by the overlying bowel gas. ABDOMINAL AORTA: The proximal, middle, and distal aortic segments are normal in caliber. INFERIOR VENA CAVA: Visualized portions are normal. LIVER: The liver demonstrates normal size, contour and increased echogenicity. No focal lesion or intrahepatic biliary duct dilatation. The right lobe measures 21.1 cm in length. The left lobe measures 12.2 cm in length. Portal flow is hepatopedal. Shear wave liver elastography median stiffness is 1.11 m/s (reference: normal median stiffness is 1.3 m/s or less). IQR/median stiffness to assess sampling precision is 0.25 (reference: good quality data set is IQR/median stiffness of 0.15 or less). GALLBLADDER: Normal. The gallbladder is physiologically distended without evidence of stones, sludge, polyps, wall thickening or pericholecystic fluid. COMMON BILE DUCT: Normal in caliber measuring 0.32 cm in diameter. RIGHT KIDNEY: Normal. No hydronephrosis. No renal calculi or focal parenchymal lesions. The kidney measures 11.0 cm in maximum dimension. LEFT KIDNEY: Normal. No hydronephrosis. No renal calculi or focal parenchymal lesions. The kidney measures 12.0 cm in maximum dimension. SPLEEN: Normal. The spleen measures 11.0 cm in maximum dimension. FREE FLUID: None. US/US abdomen comp w elastography IMPRESSION: 1. Mild increased liver echogenicity. 2. Liver elastography: Median liver stiffness 1.11 corresponding to high probably normal. REFERENCE: Society of Radiologists in Ultrasound Liver Stiffness Thresholds (2020): LIVER STIFFNESS THRESHOLDS: *Liver Stiffness equal or less than 1.3 m/s: High probability of being normal. *Liver Stiffness less than 1.7 m/s: In the absence of other known clinical signs, rules out compensated advanced chronic liver disease. *Liver Stiffness 1.7-2.1 m/s: Suggestive of compensated advanced chronic liver disease but need further test for confirmation. *Liver Stiffness over 2.1 m/s: Rules in compensated advanced chronic liver disease. *Liver Stiffness over 2.4 m/s: Suggestive of clinically significant portal hypertension. QUALITY OF DATA SET: *IQR/Median value equal or less than 0.15 implies a quality data set. *IQR/Median value over 0.15 implies a poor quality data set. SIGNIFICANT CHANGE FROM PRIOR EXAM: Significant change if liver stiffness measurement is 10% or greater from prior exam. OTHER CONSIDERATIONS: The stage of liver fibrosis may be overestimated in the setting of acute hepatitis, liver inflammation, elevated liver function tests, hepatic vascular congestion, obstructive cholestasis, non-fasting state, and infiltrative diseases such as amyloidosis and lymphoma. In some patients with NAFLD, the liver stiffness thresholds for compensated advanced chronic liver disease may be lower. In causes other than viral hepatitis and NAFLD, liver stiffness thresholds are not well established.
== END 2023-05-08 08:14 | disposition home or self-care (01) ==
LOC: HO.US 08:13
PROVIDERS: PCP Family Medicine; Visit Provider Nurse Practitioner
DX: R74.01 Elevation of levels of liver transaminase levels (principal); F19.10 Other psychoactive substance abuse, uncomplicated
CPT/HCPCS: 76700; 76981

== ENCOUNTER 2023-05-10 13:12 | Outpatient (AMB) | payer OTHER, SELFPAY ==
[2023-05-10 13:46] VITALS: BP 156/74; PULSE 92; BMI 27.2
--- NOTE | 2023-05-10 13:46 | A.OFFVIS_ITS ---
Intake Vital Signs 05/10/23 13:46 Height 5 ft 4 in Weight 158 lb 11.725 oz BMI 27.2 BP 156/74 H Blood Pressure Location Lt brachial Position Sitting Pulse 92 Pulse Source Pulse Oximeter Intake Visit Reasons: 4 week follow up Intake Note: Pt presents to the office today for a 4 week follow up. Pt states she is feeling well and denies any concerns at this time. 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 Name: Delgado([id number]) Allergies codeine [Codeine] Allergy (Intermediate, Verified 05/10/23 13:48) NAUSEA & VOMITING, vomiting fluoxetine [FLUOXETINE] Allergy (Intermediate, Verified 05/10/23 13:48) NAUSEA & VOMITING ibuprofen [IBUPROFEN] Allergy (Intermediate, Verified 05/10/23 13:48) NAUSEA & VOMITING Sulfa (Sulfonamide Antibiotics) Allergy (Mild, Verified 05/10/23 13:48) itching bactrin Allergy (Uncoded 05/10/23 13:48) Unknown HPI 4 week follow up HPI Details Assessment & Plan (1) Transaminitis: Comment: 2020 labs BASELINE Total bilirubin 0.7 Alk-phos 82 AST/ALT 34/27 Platelets 244 Mitochondrial antibodies negative Smooth muscle antibodies negative Ferritin 120 Hepatitis a B and C screen negative HIV screen negative SINDHU 1:80 homogeneous CURRENT LABS Ultrasound of the abdomen 09/19/22 FINDINGS: PANCREAS: Limited visualization. Imaged portion of pancreatic body demonstrates coarse, heterogeneous echotexture. ABDOMINAL AORTA: Nonaneurysmal. INFERIOR VENA CAVA: Visualized portions are normal. LIVER: Mildly, diffusely heterogeneous, coarse hepatic echotexture, possibly representing hepatocellular disease. Prominent main portal vein. Hepatomegaly, 22.2 cm. GALLBLADDER: Surgically absent. COMMON BILE DUCT: Normal in caliber measuring 0.7 cm in diameter. RIGHT KIDNEY: No hydronephrosis. No renal calculi. Limited visualization. The kidney measures 12.4 cm in maximum dimension. LEFT KIDNEY: Mild left renal caliectasis. No obstructing renal calculi. Limited visualization. The kidney measures 10.6 cm in maximum dimension. SPLEEN: Normal. The spleen measures 10.2 cm in maximum dimension. FREE FLUID: None. US/US abdomen complete IMPRESSION: 1. Imaged portion of pancreatic body dem onstrate coarse, heterogeneous echotexture. Correlation with clinical and laboratory exam recommended to determine further management. 2. Mildly, diffusely heterogeneous, coar se hepatic echotexture, possibly representing hepatocellular disease. Prominent main portal vein. Hepatomegaly, 22.2 cm. Correlation with clinical and laboratory exam recommended to determine further management. 3. Mild left renal caliectasis. No obstr ucting renal calculi. 4. Gallbladder surgically absent. Code(s): R74.01 - Elevation of levels of liver transaminase levels (2) Substance abuse: Code(s): F19.10 - Other psychoactive substance abuse, uncomplicated (3) Diabetes: Code(s): E11.9 - Type 2 diabetes mellitus without complications (4) Pancreatic atrophy: Code(s): K86.89 - Other specified diseases of pancreas (5) Exocrine pancreatic insufficiency: Code(s): K86.81 - Exocrine pancreatic insufficiency Plan [place] #Mikayla Live Patient was followed by Dr. Correa in the past but has not been seen since 2019. She [address] Correa was helping her with my bacteria in my stomach but she does not feel her sx were resolved. I am uncertain what bacteria she may be referring to. She feels she still has a bacteria because every time I move my bowels I see white balls like eggs. She says she only sees the white balls when she has diarrhea but her stools are usually soft to formed with occasional swings from CIC to diarrhea. The diarrhea happens about twice a week and depends on what I eat. She can not ID particular foods that cause it I have not paid attention. BUT she admits she likes very spicy foods. She does note that she feels periumbilical balls when she puts her hand on her stomach and lays down. This sounds like bowel spasm since it moves around. She does have a lot of gas and bloating, and past imaging studies shows pancreatic atrophy so it is likely she has EPI. Will start creon. She does not drink ETOH currently except on holidays. No FHX liver disease. She occasionally uses cocaine nasally. No IVDU. However, nasal cocaine use also poses the risk for contacting hepatitis C so will retest her for these pathogens. She is obese but has been losing weight with her Trulicity use. She does have marked central adiposity despite her BMI looking normal which likely plays into metabolic syndrome and the diagnosis of fatty liver. 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 I think a trial of Creon would be prudent. This likely is what is causing her gas and bloating. ROV 4 weeks. Orders: Orders Comprehensive Met. Panel Today E11.9 - Type 2 neno betes mellitus wit hout complications , F19.10 - Other p sychoactive substa nce abuse, uncompl icated, R74.01 - E levation of levels of liver transami nase levels Complete Blood Cou nt Auto Diff Today E11.9 - Type 2 neno betes mellitus wit hout complications , F19.10 - Other p sychoactive substa nce abuse, uncompl icated, R74.01 - E levation of levels of liver transami nase levels Alpha Fetoprotein Today E11.9 - Type 2 neno betes mellitus wit hout complications , F19.10 - Other p sychoactive substa nce abuse, uncompl icated, R74.01 - E levation of levels of liver transami nase levels Gamma Glutamyl Tra nspeptidase Today E11.9 - Type 2 neno betes mellitus wit hout complications , F19.10 - Other p sychoactive substa nce abuse, uncompl icated, R74.01 - E levation of levels of liver transami nase levels Transglutaminase I gA Today E11.9 - Type 2 neno betes mellitus wit hout complications , F19.10 - Other p sychoactive substa nce abuse, uncompl icated, R74.01 - E levation of levels of liver transami nase levels Transglutaminase A b IgG Today E11.9 - Type 2 neno betes mellitus wit hout complications , F19.10 - Other p sychoactive substa nce abuse, uncompl icated, R74.01 - E levation of levels of liver transami nase levels Mitochondrial Anti body Today E11.9 - Type 2 neno betes mellitus wit hout complications , F19.10 - Other p sychoactive substa nce abuse, uncompl icated, R74.01 - E levation of levels of liver transami nase levels Ferritin Today E11.9 - Type 2 neno betes mellitus wit hout complications , F19.10 - Other p sychoactive substa nce abuse, uncompl icated, R74.01 - E levation of levels of liver transami nase levels Liver Fibrosis Pnl Today E11.9 - Type 2 neno betes mellitus wit hout complications , F19.10 - Other p sychoactive substa nce abuse, uncompl icated, R74.01 - E levation of levels of liver transami nase levels US abdomen comp w elastography Today F19.10 - Other psy choactive substanc e abuse, uncomplic ated, R74.01 - Mar vation of levels o f liver transamina se levels Hepatitis A,B,C Pr ofile Today R74.01 - Elevation of levels of live r transaminase lev els HIV Ab/Ag Today R74.01 - Elevation of levels of live r transaminase lev els Phosphatidylethano l, Blood Today R74.01 - Elevation of levels of live r transaminase lev els Pancreatic Elastas e-1 Today E11.9 - Type 2 neno betes mellitus wit hout complications , F19.10 - Other p sychoactive substa nce abuse, uncompl icated, K86.81 - E xocrine pancreatic insufficiency, K8 6.89 - Other speci fied diseases of p ancreas, R74.01 - Elevation of level s of liver transam inase levels Smooth Muscle Anti body Today E11.9 - Type 2 neno betes mellitus wit hout complications , F19.10 - Other p sychoactive substa nce abuse, uncompl icated, R74.01 - E levation of levels of liver transami nase levels Amylase Today E11.9 - Type 2 neno betes mellitus wit hout complications , F19.10 - Other p sychoactive substa nce abuse, uncompl icated, K86.81 - E xocrine pancreatic insufficiency, K8 6.89 - Other speci fied diseases of p ancreas, R74.01 - Elevation of level s of liver transam inase levels Lipase Today E11.9 - Type 2 neno betes mellitus wit hout complications , F19.10 - Other p sychoactive substa nce abuse, uncompl icated, K86.81 - E xocrine pancreatic insufficiency, K8 6.89 - Other speci fied diseases of p ancreas, R74.01 - Elevation of level s of liver transam inase levels Medications: New mpdltp-plcobvyp-ce ylase 36,000-114,0 00- 180,000 unit ( Creon) administ er with meals and/ or snacks 2 caps PO BID 120 caps 6RF K86.81 - Exocrine pancreatic insuffi ciency, K86.89 - O ther specified dis eases of pancreas LABS:. Laboratory Tests 04/12/23 04/12/23 05/07/23 16:03 16:03 15:00 WBC 11.6 H RBC 3.76 L Hgb 11.1 L Hct 34.1 L MCV 90.7 MCH 29.5 Plt Count 306 Estimated GFR 54 Total Bilirubin 0.3 GGT 37 H AST 17 ALT 12 Alkaline Phosphata se 91 Liver Fibrosis Sta ge F0 Amylase 51 Lipase 36 Alpha Fetoprotein 1.6 Stool Pancreat Daysi stase Pending Anti-Mitochondrial Ab NEGATIVE Anti-Smooth Muscle Ab <20 Tiss Transglutamin IgG 1.4 Tiss Transglutamin IgA <1.0 PEth 16:0/18.1 (PO PEth) NEGATIVE PEth 16:0/18.2 (PL PEth) NEGATIVE Hepatitis A IgM Ab Nonreactive Hep Bs Antigen Negative Hep Bs Antibody NONREACTIVE Hep B Core Total A b Nonreactive Hepatitis C Ab (EI A) Nonreactive HIV 1&2 Ab/P24 Ag 4thGn Nonreactive ULTRASOUND OF THE LIVER WITH ELASTOGRAPHY Report not ready at the time the patient was seen TODAY'S VISIT [place] #[id number] She received the Creon and is taking it over the past 4-5 days, but she has not yet noted a change in her stools yet. Her pancreatic elastatse is still pending, but she did submit it prior to starting the Creon. It also appears she may have some mild Celiac response, and this may explain the rise although mild in her LFT's. I print information in [place] regarding Celiac and ask her to consider going gluten free. She likes to eat a lot of crackers and cookies. She will still have IBS-M, and We are still awaiting the US read as well and the above lab. ROV 6 weeks. [facility] Medical History Transaminitis History of Graves' disease Pilonidal cyst Substance abuse [place] (obstructive sleep apnea) Nicotine dependence, cigarettes, uncomplicated History of abnormal mammogram Hidradenitis suppurativa Hyperlipidemia Hypertension Surgical History Hx of cataract surgery History of colonoscopy (~2013) History of bunionectomy (~2011) History of axillary surgery (~2013) History of cholecystectomy History of umbilical hernia repair (~2016) Family History Paternal Aunt Breast cancer Mother Cancer of mandible Other [place] (obstructive sleep apnea) Social History Alcohol intake: current Alcohol intake frequency: does not drink Patient Tobacco Use Status: Current everyday Tobacco user Cigarette Packs Per Day: 0.75 Cigarettes Per Day: 15 Years Smoked: 36 (onset age 19) Current occupational status: unemployed Female Reproductive History Menstrual Age of Menarche: 9 Review of Systems Const Denies fatigue, Denies fever(s), Denies night sweats, Denies poor appetite and Denies weight loss ENT Reports Normal hearing present, Denies dental pain, Denies dysphagia, Denies hearing loss, Denies mouth pain, Denies odynophagia, Denies throat swelling, Denies tongue swelling and Reports other (Dentition adequate) Card Reports no additional complaints Resp Reports no additional complaints GI Details: Denies abdominal pain, Denies melena, Reports bloating, Denies hematochezia, Denies constipation, Denies GI cramping, Denies dysphagia, Reports excessive flatus, Denies early satiety, Reports heartburn, Reports diarrhea, Denies nausea, Denies odynophagia, Denies vomiting and Denies hematemesis Skin/Breast Denies pruritus, Denies lesions, Denies rash and Denies jaundice Neuro Reports Normal hearing present and Denies Abnormal speech present Endo Denies fatigue Aller/Immun Denies throat swelling and Denies tongue swelling Physical Exam Vital Signs: Last Vital Signs Pulse 92 05/10/23 13:46 BP 156/74 H 05/10/23 13:46 BMI result Body Mass Index 27.2 Const General: cooperative, no acute distress, well developed and well groomed Nutritional Appearance: average body habitus and well nourished Orientation/consciousness: oriented to person, oriented to place and oriented to time Limitations: language barrier HEENT Head: Yes normocephalic and Yes atraumatic Eyes General: appearance normal, both eyes and all related structures Pupils: Equal, round and reactive pupils present Neck Neck: Yes normal visual inspection and Yes no lymphadenopathy Thyroid: Thyroid normal Resp Effort & Inspection: normal respiratory effort and able to speak in complete sentences Auscultation: clear to auscultation bilaterally Cardio Rate: regular rate Rhythm: regular rhythm Heart sounds: Normal, physiologic split S2 sound present Peripheral pulses: radial pulses present and posterior tibial pulses present GI Inspection: No distended and No Abdominal panniculus present Palpation (GI): Soft to palpation, nontender, no guarding, not rigid and No hepatosplenomegaly present Percussion: Yes normal to percussion Auscultation: normal bowel sounds Rectal Exam - Female: deferred Skin General skin exam: no rashes or lesions noted, turgor normal, skin not dry, no jaundice, No spider nevi and no striae Rashes: no rashes Nails: normal Neuro General: oriented to person, oriented to place and oriented to time Cranial nerves: Yes Equal, round and reactive pupils present and Yes Normal hearing present Speech: No Abnormal speech present Extrem General: Yes normal to inspection, No clubbing, No cyanosis and No edema Psych Appearance: grossly normal and well kempt Mental Status: mental status grossly normal Speech and movement: Normal speech and movement present Affect: normal affect Attitude: cooperative Thought process: Normal thought process present and not confabulating Thought content: Normal thought content present Insight: Limited insight present (Psych) Judgement: Limited judgement present (Psych) Results Reviewed Results Reviewed: Laboratory Tests 04/12/23 04/12/23 05/07/23 16:03 16:03 15:00 WBC 11.6 H RBC 3.76 L Hgb 11.1 L Hct 34.1 L MCV 90.7 MCH 29.5 Plt Count 306 Estimated GFR 54 Total Bilirubin 0.3 GGT 37 H AST 17 ALT 12 Alkaline Phosphatase 91 Liver Fibrosis Stage F0 Amylase 51 Lipase 36 Alpha Fetoprotein 1.6 Stool Pancreat Elastase Pending Anti-Mitochondrial Ab NEGATIVE Anti-Smooth Muscle Ab <20 Tiss Transglutamin IgG 1.4 Tiss Transglutamin IgA <1.0 PEth 16:0/18.1 (POPEth) NEGATIVE PEth 16:0/18.2 (PLPEth) NEGATIVE Hepatitis A IgM Ab Nonreactive Hep Bs Antigen Negative Hep Bs Antibody NONREACTIVE Hep B Core Total Ab Nonreactive Hepatitis C Ab (EIA) Nonreactive HIV 1&2 Ab/P24 Ag 4thGn Nonreactive Assessment & Plan Assessment & Plan (1) Exocrine pancreatic insufficiency: Code(s): K86.81 - Exocrine pancreatic insufficiency (2) Transaminitis: Comment: 2020 labs BASELINE Total bilirubin 0.7 Alk-phos 82 AST/ALT 34/27 Platelets 244 Mitochondrial antibodies negative Smooth muscle antibodies negative Ferritin 120 Hepatitis a B and C screen negative HIV screen negative SINDHU 1:80 homogeneous CURRENT LABS 04/12/2401/ 16:0316:0315:00 Plt Count 306 Total Bilirubin 0.3 GGT 37 H AST 17 ALT 12 Alkaline Phosphatase 91 Liver Fibrosis Stage F0 Amylase 51 Lipase 36 Alpha Fetoprotein 1.6 Anti-Mitochondrial Ab NEGATIVE Anti-Smooth Muscle Ab <20 Tiss Transglutamin IgG 1.4 Tiss Transglutamin IgA <1.0 PEth 16:0/18.1 (POPEth) NEGATIVE PEth 16:0/18.2 (PLPEth) NEGATIVE Hepatitis A IgM Ab Nonreactive Hep Bs Antigen Negative Hep Bs Antibody NONREACTIVE Hep B Core Total Ab Nonreactive Hepatitis C Ab (EIA) Nonreactive HIV 1&2 Ab/P24 Ag 4thGn Nonreactive Ultrasound of the abdomen 09/19/22 FINDINGS: PANCREAS: Limited visualization. Imaged portion of pancreatic body demonstrates coarse, heterogeneous echotexture. ABDOMINAL AORTA: Nonaneurysmal. INFERIOR VENA CAVA: Visualized portions are normal. LIVER: Mildly, diffusely heterogeneous, coarse hepatic echotexture, possibly representing hepatocellular disease. Prominent main portal vein. Hepatomegaly, 22.2 cm. GALLBLADDER: Surgically absent. COMMON BILE DUCT: Normal in caliber measuring 0.7 cm in diameter. RIGHT KIDNEY: No hydronephrosis. No renal calculi. Limited visualization. The kidney measures 12.4 cm in maximum dimension. LEFT KIDNEY: Mild left renal caliectasis. No obstructing renal calculi. Limited visualization. The kidney measures 10.6 cm in maximum dimension. SPLEEN: Normal. The spleen measures 10.2 cm in maximum dimension. FREE FLUID: None. US/US abdomen complete IMPRESSION: 1. Imaged portion of pancreatic body demonstrate coarse, heterogeneous echotexture. Correlation with clinical and laboratory exam recommended to determine further management. 2. Mildly, diffusely heterogeneous, coarse hepatic echotexture, possibly representing hepatocellular disease. Prominent main portal vein. Hepatomegaly, 22.2 cm. Correlation with clinical and laboratory exam recommended to determine further management. 3. Mild left renal caliectasis. No obstructing renal calculi. 4. Gallbladder surgically absent. Code(s): R74.01 - Elevation of levels of liver transaminase levels Plan [place] #[id number] She received the Creon and is taking it over the past 4-5 days, but she has not yet noted a change in her stools yet. Her pancreatic elastatse is still pending, but she did submit it prior to starting the Creon. It also appears she may have some mild Celiac response, and this may explain the rise although mild in her LFT's. I print information in [place] regarding Celiac and ask her to consider going gluten free. She likes to eat a lot of crackers and cookies. She will still have IBS-M, and We are still awaiting the US read as well and the above lab. ROV 6 weeks. Coding Level of Care Code Est Pt Level 3 (55637) Diagnoses Exocrine pancreatic insufficiency K86.81 Transaminitis R74.01
== END 2023-05-10 14:13 | disposition home or self-care (01) ==
PROVIDERS: PCP Family Medicine; Visit Provider Nurse Practitioner
DX: K86.81 Exocrine pancreatic insufficiency (principal); R74.01 Elevation of levels of liver transaminase levels
CPT/HCPCS: 99213

== ENCOUNTER → 2023-05-10 13:12 | Outpatient (BNVA) | payer OTHER, SELFPAY | PROVIDERS: PCP Family Medicine; Visit Provider Nurse Practitioner | DX: K86.81 Exocrine pancreatic insufficiency (principal); R74.01 Elevation of levels of liver transaminase levels | CPT/HCPCS: 99212 ==

== ENCOUNTER 2023-05-17 09:26 | Outpatient (AMB) | payer OTHER, SELFPAY ==
--- NOTE | 2023-05-17 09:36 | MHC.OFFVIS ---
Intake Vital Signs 05/17/23 09:37 Height 5 ft 4 in Weight 158 lb BMI 27.1 Intake Visit Reasons: Pre-Lt Ganglion Cyst Exc Intake Note: Jennifer 58 yr old female presents today for her pre-op visit for her left ganglion cyst excision. States she is not sure of her A1C. Allergies codeine [Codeine] Allergy (Intermediate, Verified 05/17/23 09:38) NAUSEA & VOMITING, vomiting fluoxetine [FLUOXETINE] Allergy (Intermediate, Verified 05/17/23 09:38) NAUSEA & VOMITING ibuprofen [IBUPROFEN] Allergy (Intermediate, Verified 05/17/23 09:38) NAUSEA & VOMITING Sulfa (Sulfonamide Antibiotics) Allergy (Mild, Verified 05/17/23 09:38) itching bactrin Allergy (Uncoded 05/17/23 09:38) Unknown HPI Pre-Lt Ganglion Cyst Exc HPI Details Jennifer is a 58 year old right hand dominant Diabetic Yi speaking woman who presents to discuss her left wrist ganglion. She has a ganglion cyst on the volar aspect of her left wrist. She says this has been present for several years and denies any changes in size. She denies any numbness or tingling She would like to discuss surgery, but is unsure of her HgA1c. She has COPD & is a smoker [facility] Medical History Transaminitis History of Graves' disease Pilonidal cyst Substance abuse [place] (obstructive sleep apnea) Nicotine dependence, cigarettes, uncomplicated History of abnormal mammogram Hidradenitis suppurativa Hyperlipidemia Hypertension Surgical History Hx of cataract surgery History of colonoscopy (~2013) History of bunionectomy (~2011) History of axillary surgery (~2013) History of cholecystectomy History of umbilical hernia repair (~2016) Family History Paternal Aunt Breast cancer Mother Cancer of mandible Other [place] (obstructive sleep apnea) Social History Alcohol intake: current Alcohol intake frequency: does not drink Patient Tobacco Use Status: Current everyday Tobacco user Cigarette Packs Per Day: 0.75 Cigarettes Per Day: 15 Years Smoked: 36 (onset age 19) Current occupational status: unemployed Female Reproductive History Menstrual Age of Menarche: 9 Review of Systems Const All systems reviewed & are unremarkable except as noted in HPI and below Physical Exam Vital Signs: BMI result Body Mass Index 27.1 Const General: cooperative, healthy appearing and no acute distress Orientation/consciousness: patient oriented x3 HEENT Head: Yes normocephalic and Yes atraumatic Eyes EOM: EOMs intact bilaterally Resp Effort & Inspection: normal respiratory effort and able to speak in complete sentences Cardio Jugular venous distension: no JVD Skin General skin exam: turgor normal Rashes: no rashes Neuro General: patient oriented x3 Extrem Other: Evaluation of Left Upper Extremity: The patient is alert, oriented, and in no acute distress Neuro: Median, Ulnar, Radial nerves motor and sensory intact and sensation is normal to the tips of all digits Vascular: Cap refill brisk ROM: She can make a fist and extend all her digits No locking or catching Smooth wrist flexion & extension Full pronosupination without pain Skin: No lacerations or abrasions. General: No Ecchymosis. No Erythema or evidence of infection. She has a left volar wrist ganglion, measuring ~1cm in diameter, and has not changed in size for ~5 years Psych Appearance: grossly normal Affect: normal affect Attitude: cooperative Assessment & Plan Assessment & Plan (1) Ganglion cyst of volar aspect of left wrist: Code(s): M67.432 - Ganglion, left wrist (2) Diabetes: Code(s): E11.9 - Type 2 diabetes mellitus without complications (3) COPD (chronic obstructive pulmonary disease): Code(s): J44.9 - Chronic obstructive pulmonary disease, unspecified (4) Nicotine dependence, cigarettes, uncomplicated: Comment: (current smoker - onset 19, 3/4ppd x 38yrs, 28pyh, in LDCT program) Code(s): F17.210 - Nicotine dependence, cigarettes, uncomplicated Plan Assessment & plan: 1. Left volar wrist ganglion Measuring ~1cm in diameter I educated her about this condition I discussed operative and non-operative treatment options The patient would like to proceed with surgery The risks and benefits of operative treatment were discussed with the patient and the patient wishes to proceed with surgery. These risks include, but are not limited to risk of damage to blood vessels, nerves, tendons, infection, recurrence, incomplete relief of preoperative symptoms, persistent pain, possible need for further surgery and the risks associated with regional blocks and anesthesia. The plan is to take the patient to the operating room sometime in the next few weeks for the following procedures: 1. Left volar wrist ganglion excision, under general All of the preoperative paperwork including the consent was reviewed today. All the patient's questions were answered. The patient understands that they will be contacted by our flight crew scheduler soon to schedule this procedure She denies blood thinners, asthma, heart, kidney issues She is a Diabetic but does not know her HgA1c. She has COPD & is a smoker They will need an updated HgA1c that is <8.1% in order to proceed with surgery, and they expressed understanding Scribed for Gin Hartley MD by Zachery Persaud, medical support specialist, on 05/17/23 at 10:30 AM, EST. Coding Level of Care Code Est Pt Level 4 (83197) Diagnoses Ganglion cyst of volar aspect of left wrist M67.432 Diabetes E11.9 COPD (chronic obstructive pulmonary disease) J44.9 Nicotine dependence, cigarettes, uncomplicated F17.210
[2023-05-17 09:37] VITALS: BMI 27.1
== END 2023-05-17 10:35 | disposition home or self-care (01) ==
PROVIDERS: PCP Family Medicine; Visit Provider Orthopaedic Surgery
DX: M67.432 Ganglion, left wrist (principal); E11.9 Type 2 diabetes mellitus without complications; J44.9 Chronic obstructive pulmonary disease, unspecified; F17.210 Nicotine dependence, cigarettes, uncomplicated
CPT/HCPCS: 99214

== ENCOUNTER → 2023-05-17 09:26 | Outpatient (BNVA) | payer OTHER, SELFPAY | PROVIDERS: PCP Family Medicine; Visit Provider Orthopaedic Surgery | DX: M67.432 Ganglion, left wrist (principal); E11.9 Type 2 diabetes mellitus without complications; J44.9 Chronic obstructive pulmonary disease, unspecified; F17.210 Nicotine dependence, cigarettes, uncomplicated | CPT/HCPCS: 99212 ==

== ENCOUNTER 2023-05-25 10:29 | Outpatient (REF) | payer OTHER, SELFPAY ==
[2023-05-25 11:53] LABS: Alanine Aminotransferase 15 U/L (0-31); Albumin Level 4.2 g/dL (3.5-5.0); Alkaline Phosphatase 96 U/L (39-117); Anion Gap 15 (12-20); Aspartate Amino Transferase 19 U/L (5-31); Bilirubin Total 0.7 mg/dL (0.0-1.0); Blood Urea Nitrogen 16 mg/dL (9-16); Calcium 9.3 mg/dL (8.4-10.2); Carbon Dioxide 30 mmol/L (22-29); Chloride 102 mmol/L (96-108); Cholesterol 121 mg/dL (<200); Estimated Glomerular Filt Rate > 60; Glucose Random 113 mg/dL (60-115); HDL Cholesterol 37 mg/dL (>40); LDL Cholesterol Calculated 51 mg/dL (<100); Potassium 3.9 mmol/L (3.3-5.1); Sodium 143 mmol/L (135-145); Total Protein 8.2 g/dL (6.5-8.0); Triglycerides 167 mg/dL (<150)
[2023-05-25 12:08] LABS: TSH reflex Free T4 0.06 uIU/mL (0.32-4.0)
[2023-05-25 12:18] LABS: Magnesium 0.9 mg/dL (1.6-2.6)
[2023-05-25 12:32] LABS: Folate 8.3 ng/mL (> or = 4.0); Reflex LDLD? No; Vitamin B12 376 pg/mL (200-900)
[2023-05-25 12:43] LABS: Free T4 (Free Thyroxine) 1.43 ng/dL (0.71-1.85)
== END 2023-05-25 10:30 | disposition home or self-care (01) ==
LOC: HO.HHCL 10:29
PROVIDERS: Visit Provider Family Medicine
DX: E78.5 Hyperlipidemia, unspecified (principal); I10 Essential (primary) hypertension; E89.0 Postprocedural hypothyroidism; E11.9 Type 2 diabetes mellitus without complications; E83.42 Hypomagnesemia
CPT/HCPCS: 36415; 80053; 80061; 82607; 82746; 83735; 84439; 84443

== ENCOUNTER 2023-05-26 11:12 | Outpatient (REF) | payer OTHER, SELFPAY ==
[2023-05-26 14:13] LABS: Creatinine Urine 105.85 mg/dL; Microalbum/Creatinine Ratio Ur 10.3 ug/mg cr (<30)
== END 2023-05-26 11:13 | disposition home or self-care (01) ==
LOC: HO.HHCL 11:12
PROVIDERS: Visit Provider Family Medicine
DX: E11.9 Type 2 diabetes mellitus without complications (principal)
CPT/HCPCS: 82043; 82570

== ENCOUNTER 2023-05-30 09:09 | Outpatient (AMB) | payer OTHER, SELFPAY ==
--- NOTE | 2023-05-30 09:14 | MHC.OFFVIS ---
Intake Vital Signs 05/30/23 09:15 Height 5 ft 4 in Weight 156 lb 6 oz BMI 26.8 BP 122/78 Blood Pressure Location Rt brachial Position Sitting Pulse 88 Pulse Source Pulse Oximeter Pulse Oximetry (%) 98 Intake Visit Reasons: 4 mnts f/u for Sleep - Unable to Conf Intake Note: Patient presents for 4 month follow up. 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 The home sleep study result was significant for a mild degree of sleep apnea. The AHI was 6/hr and oxygen joel was 88%. Pt started APAP [id number]. The CPAP compliance and therapy response (02/25/23-05/25/23) reviwed. The usage days 100% and the average usage hours 8 hrs. The max pressure was 15.2 and the residual AHI was 2.7/hr. Pt reports she sleeps well with CPAP, rested, and feels more energy when she wakes up. [facility] Medical History Transaminitis History of Graves' disease Pilonidal cyst Substance abuse [place] (obstructive sleep apnea) Nicotine dependence, cigarettes, uncomplicated History of abnormal mammogram Hidradenitis suppurativa Hyperlipidemia Hypertension Surgical History Hx of cataract surgery History of colonoscopy (~2013) History of bunionectomy (~2011) History of axillary surgery (~2013) History of cholecystectomy History of umbilical hernia repair (~2016) Family History Paternal Aunt Breast cancer Mother Cancer of mandible Other [place] (obstructive sleep apnea) Social History Alcohol intake: current Alcohol intake frequency: does not drink Patient Tobacco Use Status: Current everyday Tobacco user Cigarette Packs Per Day: 0.75 Cigarettes Per Day: 15 Years Smoked: 36 (onset age 19) Current occupational status: unemployed Female Reproductive History Menstrual Age of Menarche: 9 Review of Systems Const All systems reviewed & are unremarkable except as noted in HPI and below ENT Reports Normal hearing present Neuro Reports Normal hearing present Physical Exam Vital Signs: Last Vital Signs Pulse 88 05/30/23 09:15 BP 122/78 05/30/23 09:15 Pulse Ox 98 05/30/23 09:15 BMI result Body Mass Index 26.8 Const General: cooperative Nutritional Appearance: overweight Orientation/consciousness: patient oriented x3 Limitations: language barrier Neck Neck: Yes full ROM and Yes supple Resp Effort & Inspection: normal respiratory effort and able to speak in complete sentences Neuro General: patient oriented x3, gait normal, moves all extremities and no focal motor deficits Cranial nerves: Yes Bilaterally intact EOM present, Yes Normal facial strength present, Yes Midline tongue present, Yes Symmetric palate elevation present, Yes Normal hearing present, Yes Ability to bilaterally rotate head present and Yes Ability to bilaterally elevate shoulders present Cognition (Neuro): normal cognition Gait exam (Neuro): Normal gait present Motor exam (neuro): 5/5 motor strength present throughout, Pronator motor function not present and no tremor noted Psych Appearance: grossly normal Mental Status: mental status grossly normal Affect: normal affect Attitude: cooperative Assessment & Plan Assessment & Plan (1) [place] on CPAP: Comment: Mild degree of sleep apnea. The AHI was 6/hr and oxygen joel was 88% Code(s): G47.33 - Obstructive sleep apnea (adult) (pediatric) Plan Advised patient to continue to use APAP at 5-20cm H2O as patient experiences good clinical effects, better quality sleep and daytime sleepiness has resolved. Stressed compliance, use CPAP nightly and more than 4 hrs. Continue to practice good sleep hygiene. Coding Level of Care Code Est Pt Level 3 (79533) Diagnoses [place] on CPAP G47.33
[2023-05-30 09:15] VITALS: BP 122/78; PULSE 88; O2SAT 98; BMI 26.8
== END 2023-05-30 09:30 | disposition home or self-care (01) ==
PROVIDERS: PCP Family Medicine; Visit Provider Nurse Practitioner Family
DX: G47.33 Obstructive sleep apnea (adult) (pediatric) (principal)
CPT/HCPCS: 99213

== ENCOUNTER → 2023-05-30 09:09 | Outpatient (BNVA) | payer OTHER, SELFPAY | PROVIDERS: PCP Family Medicine; Visit Provider Nurse Practitioner Family | DX: G47.33 Obstructive sleep apnea (adult) (pediatric) (principal) | CPT/HCPCS: 99212 ==

== ENCOUNTER 2023-06-21 09:54 | Outpatient (REF) | payer OTHER, SELFPAY ==
[2023-06-21 14:27] LABS: Free T4 (Free Thyroxine) 1.31 ng/dL (0.71-1.85); Thyroid Stimulating Hormone 0.05 uIU/mL (0.32-4.0)
[2023-06-21 14:33] LABS: Magnesium 0.9 mg/dL (1.6-2.6)
== END 2023-06-21 09:55 | disposition home or self-care (01) ==
LOC: HO.LAB 09:54
PROVIDERS: PCP Family Medicine; Visit Provider Family Medicine
DX: E89.0 Postprocedural hypothyroidism (principal); E83.42 Hypomagnesemia; R74.01 Elevation of levels of liver transaminase levels; K58.2 Mixed irritable bowel syndrome
CPT/HCPCS: 36415; 83735; 84439; 84443; 99212

== ENCOUNTER 2023-06-21 09:54 | Outpatient (AMB) | payer OTHER, SELFPAY ==
[2023-06-21 10:14] VITALS: BMI 27.3
--- NOTE | 2023-06-21 10:14 | MHC.OFFVIS ---
Vital Signs 06/21/23 10:14 Height 5 ft 4 in Weight 159 lb 2.78 oz BMI 27.3 Intake Visit Reasons: 6 week follow up IBS, ? Celiac EPI Intake Note: Jennifer returns to in office today in follow up CC: Patient states that she d/c the creon because it was giving her a lot of gas and bloating. Combination Man Required: No Allergies sulfamethoxazole [From Bactrim] Allergy (Severe, Verified 06/21/23 10:30) Itching trimethoprim [From Bactrim] Allergy (Severe, Verified 06/21/23 10:30) Itching codeine [Codeine] Allergy (Intermediate, Verified 06/21/23 10:30) NAUSEA & VOMITING, vomiting fluoxetine [FLUOXETINE] Allergy (Intermediate, Verified 06/21/23 10:30) NAUSEA & VOMITING ibuprofen [IBUPROFEN] Allergy (Intermediate, Verified 06/21/23 10:30) NAUSEA & VOMITING Sulfa (Sulfonamide Antibiotics) Allergy (Mild, Verified 06/21/23 10:30) itching PFSH Medical History Transaminitis History of Graves' disease Pilonidal cyst Substance abuse [place] (obstructive sleep apnea) Nicotine dependence, cigarettes, uncomplicated History of abnormal mammogram Hidradenitis suppurativa Hyperlipidemia Hypertension Surgical History Hx of cataract surgery History of colonoscopy (~2013) History of bunionectomy (~2011) History of axillary surgery (~2013) History of cholecystectomy History of umbilical hernia repair (~2016) Family History Paternal Aunt Breast cancer Mother Cancer of mandible Other [place] (obstructive sleep apnea) Social History Alcohol intake: current Alcohol intake frequency: does not drink Patient Tobacco Use Status: Current everyday Tobacco user Cigarette Packs Per Day: 0.75 Cigarettes Per Day: 15 Years Smoked: 36 (onset age 19) Current occupational status: unemployed Female Reproductive History Menstrual Age of Menarche: 9 Coding
--- NOTE | 2023-06-21 10:14 | MHC.OFFVIS ---
Vital Signs 06/21/23 10:14 Height 5 ft 4 in Weight 159 lb 2.78 oz BMI 27.3 Intake Visit Reasons: 6 week follow up IBS, ? Celiac EPI Intake Note: Jennifer returns in follow up of US and lab. CC: Reports doing well an denies having any GI concerns today. She discontinued Creon d/t increased gas and abd bloating. Information Interpreted: clinical only Accompanied by: Self / Same As Patient Allergies sulfamethoxazole [From Bactrim] Allergy (Severe, Verified 06/21/23 10:30) Itching trimethoprim [From Bactrim] Allergy (Severe, Verified 06/21/23 10:30) Itching codeine [Codeine] Allergy (Intermediate, Verified 06/21/23 10:30) NAUSEA & VOMITING, vomiting fluoxetine [FLUOXETINE] Allergy (Intermediate, Verified 06/21/23 10:30) NAUSEA & VOMITING ibuprofen [IBUPROFEN] Allergy (Intermediate, Verified 06/21/23 10:30) NAUSEA & VOMITING Sulfa (Sulfonamide Antibiotics) Allergy (Mild, Verified 06/21/23 10:30) itching HPI HPI 6 week follow up IBS, ? Celiac EPI: Details: Assessment & Plan (1) Exocrine pancreatic insufficiency: Code(s): K86.81 - Exocrine pancreatic insufficiency (2) Transaminitis: Comment: 2020 labs BASELINE Total bilirubin 0.7 Alk-phos 82 AST/ALT 34/27 Platelets 244 Mitochondrial antibodies negative Smooth muscle antibodies negative Ferritin 120 Hepatitis a B and C screen negative HIV screen negative JENNIFER 1:80 homogeneous CURRENT LABS 04/12/2401/ 16:0316:0315:00 Plt Count 306 Total Bilirubin 0.3 GGT 37 H AST 17 ALT 12 Alkaline Phosphatase 91 Liver Fibrosis Stage F0 Amylase 51 Lipase 36 Alpha Fetoprotein 1.6 Anti-Mitochondrial Ab NEGATIVE Anti-Smooth Muscle Ab <20 Tiss Transglutamin IgG 1.4 Tiss Transglutamin IgA <1.0 PEth 16:0/18.1 (POPEth) NEGATIVE PEth 16:0/18.2 (PLPEth) NEGATIVE Hepatitis A IgM Ab Nonreactive Hep Bs Antigen Negative Hep Bs Antibody NONREACTIVE Hep B Core Total Ab Nonreactive Hepatitis C Ab (EIA) Nonreactive HIV 1&2 Ab/P24 Ag 4thGn Nonreactive Ultrasound of the abdomen 09/19/22 FINDINGS: PANCREAS: Limited visualization. Imaged portion of pancreatic body demonstrates coarse, heterogeneous echotexture. ABDOMINAL AORTA: Nonaneurysmal. INFERIOR VENA CAVA: Visualized portions are normal. LIVER: Mildly, diffusely heterogeneous, coarse hepatic echotexture, possibly representing hepatocellular disease. Prominent main portal vein. Hepatomegaly, 22.2 cm. GALLBLADDER: Surgically absent. COMMON BILE DUCT: Normal in caliber measuring 0.7 cm in diameter. RIGHT KIDNEY: No hydronephrosis. No renal calculi. Limited visualization. The kidney measures 12.4 cm in maximum dimension. LEFT KIDNEY: Mild left renal caliectasis. No obstructing renal calculi. Limited visualization. The kidney measures 10.6 cm in maximum dimension. SPLEEN: Normal. The spleen measures 10.2 cm in maximum dimension. FREE FLUID: None. US/US abdomen complete IMPRESSION: 1. Imaged portion of pancreatic body demonstrate coarse, heterogeneous echotexture. Correlation with clinical and laboratory exam recommended to determine further management. 2. Mildly, diffusely heterogeneous, coarse hepatic echotexture, possibly representing hepatocellular disease. Prominent main portal vein. Hepatomegaly, 22.2 cm. Correlation with clinical and laboratory exam recommended to determine further management. 3. Mild left renal caliectasis. No obstructing renal calculi. 4. Gallbladder surgically absent. Code(s): R74.01 - Elevation of levels of liver transaminase levels Plan [place] #[id number] She received the Creon and is taking it over the past 4-5 days, but she has not yet noted a change in her stools yet. Her pancreatic elastatse is still pending, but she did submit it prior to starting the Creon. It also appears she may have some mild Celiac response, and this may explain the rise although mild in her LFT's. I print information in [place] regarding Celiac and ask her to consider going gluten free. She likes to eat a lot of crackers and cookies. She will still have IBS-M, and We are still awaiting the US read as well and the above lab. ROV 6 weeks. LABS: Laboratory Tests 05/07/23 15:00 Stool Pancreat Elastase >500 TODAY'S VISIT [place] #Low Live E COLI SEROTYPE 0157:H7 is the bacteria she had in the past. She was seeing Dr. Correa in the past but did not feel they were progressing on this topis and her IBS. She has used flax seed and yuri in the past. She is fearful that abx would give her diarrhea, and they are not effective against E coli, I explain this to her and she now understands. She has intermittent diarrhea, but also alts with CIC. I think that we will rx fiber and a probiotic and explain that replenishing the good bacteria can crowd out the less helpful ones. She stopped the creon because i caused more bloating. She continues on omeprazole for her GERD with good control. Return office visit in 4 weeks to evaluate her progress. [facility] Medical History Transaminitis History of Graves' disease Pilonidal cyst Substance abuse [place] (obstructive sleep apnea) Nicotine dependence, cigarettes, uncomplicated History of abnormal mammogram Hidradenitis suppurativa Hyperlipidemia Hypertension Surgical History Hx of cataract surgery History of colonoscopy (~2013) History of bunionectomy (~2011) History of axillary surgery (~2013) History of cholecystectomy History of umbilical hernia repair (~2016) Family History Paternal Aunt Breast cancer Mother Cancer of mandible Other [place] (obstructive sleep apnea) Social History Alcohol intake: current Alcohol intake frequency: does not drink Patient Tobacco Use Status: Current everyday Tobacco user Cigarette Packs Per Day: 0.75 Cigarettes Per Day: 15 Years Smoked: 36 (onset age 19) Current occupational status: unemployed Female Reproductive History Menstrual Age of Menarche: 9 Review of Systems Const Denies fatigue, Denies fever(s), Denies night sweats, Denies poor appetite and Denies weight loss ENT Reports Normal hearing present, Denies dental pain, Denies dysphagia, Denies hearing loss, Denies mouth pain, Denies odynophagia, Denies throat swelling, Denies tongue swelling and Reports other (Dentition adequate) Card Reports no additional complaints Resp Reports no additional complaints GI Details: Denies abdominal pain, Denies melena, Reports bloating, Denies hematochezia, Reports constipation, Denies GI cramping, Denies dysphagia, Denies excessive flatus, Denies early satiety, Reports heartburn, Reports diarrhea, Denies nausea, Denies odynophagia, Denies vomiting and Denies hematemesis Skin/Breast Denies pruritus, Denies lesions, Denies rash and Denies jaundice Neuro Reports Normal hearing present and Denies Abnormal speech present Endo Denies fatigue Aller/Immun Denies throat swelling and Denies tongue swelling Physical Exam Vital Signs: BMI result Body Mass Index 27.3 Const General: cooperative, no acute distress, well developed and well groomed Nutritional Appearance: average body habitus and well nourished Orientation/consciousness: oriented to person, oriented to place and oriented to time Limitations: language barrier HEENT Head: Yes normocephalic and Yes atraumatic Eyes Other: exopthalmus Pupils: Equal, round and reactive pupils present Neck Neck: Yes normal visual inspection and Yes no lymphadenopathy Thyroid: Thyroid normal Resp Effort & Inspection: normal respiratory effort and able to speak in complete sentences Auscultation: clear to auscultation bilaterally Cardio Rate: regular rate Rhythm: regular rhythm Heart sounds: Normal, physiologic split S2 sound present Peripheral pulses: radial pulses present and posterior tibial pulses present GI Inspection: No distended and No Abdominal panniculus present Palpation (GI): Soft to palpation, nontender, no guarding, not rigid and No hepatosplenomegaly present Percussion: Yes normal to percussion Auscultation: normal bowel sounds Rectal Exam - Female: deferred Skin General skin exam: no rashes or lesions noted, turgor normal, skin not dry, no jaundice, No spider nevi and no striae Rashes: no rashes Nails: normal Neuro General: oriented to person, oriented to place and oriented to time Cranial nerves: Yes Equal, round and reactive pupils present and Yes Normal hearing present Speech: No Abnormal speech present Extrem General: Yes normal to inspection, No clubbing, No cyanosis and No edema Psych Appearance: grossly normal and well kempt Mental Status: mental status grossly normal Speech and movement: Normal speech and movement present Affect: normal affect Attitude: cooperative Thought process: Normal thought process present and not confabulating Thought content: Normal thought content present Insight: Limited insight present (Psych) Judgement: Limited judgement present (Psych) Assessment & Plan Assessment & Plan (1) Transaminitis: Comment: 2020 labs BASELINE Total bilirubin 0.7 Alk-phos 82 AST/ALT 34/27 Platelets 244 Mitochondrial antibodies negative Smooth muscle antibodies negative Ferritin 120 Hepatitis a B and C screen negative HIV screen negative JENNIFER 1:80 homogeneous Ultrasound of the abdomen WITH ELASTOGRAPHY (F0) 05/15/23 CURRENT LABS 05/07/23 Plt Count 306 Total Bilirubin 0.3 GGT 37 H AST 17 ALT 12 Alkaline Phosphatase 91 Liver Fibrosis Stage F0 Amylase 51 Lipase 36 Alpha Fetoprotein 1.6 Anti-Mitochondrial Ab NEGATIVE Anti-Smooth Muscle Ab <20 Tiss Transglutamin IgG 1.4 Tiss Transglutamin IgA <1.0 PEth 16:0/18.1 (POPEth) NEGATIVE PEth 16:0/18.2 (PLPEth) NEGATIVE Hepatitis A IgM Ab Nonreactive Hep Bs Antigen Negative Hep Bs Antibody NONREACTIVE Hep B Core Total Ab Nonreactive Hepatitis C Ab (EIA) Nonreactive HIV 1&2 Ab/P24 Ag 4thGn Nonreactive Ultrasound of the abdomen WITH ELASTOGRAPHY (F0) 05/15/23 IMPRESSION: 1. Mild increased liver echogenicity. 2. Liver elastography: Median liver stiffness 1.11 corresponding to high probably normal. Code(s): R74.01 - Elevation of levels of liver transaminase levels Category: Medical (2) Irritable bowel syndrome with both constipation and diarrhea: Code(s): K58.2 - Mixed irritable bowel syndrome Category: Medical Plan [place] #[place] Live E COLI SEROTYPE 0157:H7 is the bacteria she had in the past. She was seeing Dr. Correa in the past but did not feel they were progressing on this topis and her IBS. She has used flax seed and yuri in the past. She is fearful that abx would give her diarrhea, and they are not effective against E coli, I explain this to her and she now understands. She has intermittent diarrhea, but also alts with CIC. I think that we will rx fiber and a probiotic and explain that replenishing the good bacteria can crowd out the less helpful ones. She stopped the creon because i caused more bloating. She continues on omeprazole for her GERD with good control. Return office visit in 4 weeks to evaluate her progress. Medications: New psyllium husk (Daily Fiber) 0.4 grams PO BID 60 caps 6RF K58.2 - Mixed irritable bowel syndrome Lactobac 66-Bifido 4-S.thermo 3 billion cell (Advanced Probiotic-14) 1 cap PO DAILY 30 caps 6RF Discontinued [id number] 36,000-114,000- 180,000 unit (Creon) administer with meals and/or snacks Discontinued Reason: Doctor's Order 2 caps PO BID 120 caps 6RF K86.81 - Exocrine pancreatic insufficiency, K86.89 - Other specified diseases of pancreas Coding Level of Care Code Est Pt Level 3 (22279) Diagnoses Transaminitis R74.01 Irritable bowel syndrome with both constipation and diarrhea K58.2
== END 2023-06-21 11:03 | disposition home or self-care (01) ==
PROVIDERS: PCP Family Medicine; Visit Provider Nurse Practitioner
DX: R74.01 Elevation of levels of liver transaminase levels (principal); K58.2 Mixed irritable bowel syndrome
CPT/HCPCS: 99213

== ENCOUNTER 2023-07-11 11:11 | Outpatient (AMB) | payer OTHER, SELFPAY ==
--- NOTE | 2023-07-11 11:26 | A.OFFVIS_ITS ---
Vital Signs 07/11/23 11:28 Height 5 ft 4 in Weight 159 lb BMI 27.3 Intake Visit Reasons: Preop LT ganglion cyst excision 07/20/23 AR Intake Note: Jennifer is a 58 year old right hand dominant female who presents today for a pre op appointment for her LT ganglion cyst excision 07/20/23 AR. Allergies sulfamethoxazole [From Bactrim] Allergy (Severe, Verified 07/11/23 11:27) Itching trimethoprim [From Bactrim] Allergy (Severe, Verified 07/11/23 11:27) Itching codeine [Codeine] Allergy (Intermediate, Verified 07/11/23 11:27) NAUSEA & VOMITING, vomiting fluoxetine [FLUOXETINE] Allergy (Intermediate, Verified 07/11/23 11:27) NAUSEA & VOMITING ibuprofen [IBUPROFEN] Allergy (Intermediate, Verified 07/11/23 11:27) NAUSEA & VOMITING Sulfa (Sulfonamide Antibiotics) Allergy (Mild, Verified 07/11/23 11:27) itching HPI HPI Preop LT ganglion cyst excision 07/20/23 AR: Details: 58-year-old female, who is Surinamese speaking, presents in the office today for her preoperative history and physical exam prior to a left ganglion cyst excision to be performed on 07/20/[address] Gin Hartley. Patient has an allergy history, as follows: - Sulfamethoxazole; itching -Trimethoprim; itching -Codeine; nausea and vomiting -Fluoxetine; nausea and vomiting -Ibuprofen; nausea and vomiting -Sulfa; itching Patient is currently taking, as follows: - Aspirin 81 mg PO QAM -Cholecalciferol 50 mcg PO QAM -Clonidine HCI 0.2 mg PO Bedtime -Cyclobenzaprine 10 mg PO TID PRN -Diltiazem HCI ER 360 mg PO QAM -Dulaglutide 1.5 mg subcut QWeek -Fluticasone propion=salmeterol 250-50 mcg/dose inhalation BID -Fluticasone propionate 50 mcg/actuation intranasal daily -Hydrochlorothiazide 25 mg PO QAM -Lactobac 66-Bifido 4-S.thermo 3 billion cells 1 cap PO daily -Levothyroxine 137 mcg PO QAM -Lisinopril 40 mg PO QAM -Magnesium oxide 400 mg PO PRN -Metformin ER 1,000 mg PO BID -Montelukast 10 mg PO QPM -Omeprazole 20 mg PO BID -Pravastatin 80 mg PO bedtime -Psyllium husk 0.4 grams PO BID -Tiotropium bromide 1 cap inhalation daily Patient has a medical history, as follows: -Mixed irritable bowel syndrome -Diastasis of rectus abdominis -Exocrine pancreatic insufficiency -Substance abuse -Transaminitis -Cystocele with prolapse -Depression -Hypothyroid -Diabetes -[place] on CPAP -Nicotine dependence -History of Graves' disease -Hidradenitis suppurativa -Hyperlipidemia -Hyperlipidemia -COPD Patient has a surgical history, as follows: -Hx of cataract surgery; Bilateral -Hx of colonoscopy; Dr. Lucy Arzate, [facility] [place] 09/12/2013 -Hx of bunionectomy; Left Foot Tailor's Bunionectomy x 3 - Dr. Mary Bowen - 05/12/06,08/05/09, 07/05/11. -Hx of axillary surgery; Hidradenitis Suppurativa axilla excisions - Lt & Rt 04/16/97, Rt 02/11/99, Lt 12/17/07, Lt 01/10/14 -Hx of cholecystectomy -Hx of umbilical hernia repair; Dr. Willoughby, [facility] [place] - 01/10/2017 Patient has a social history, as follows: -Tobacco: Current daily use, 15 cigarettes per day [facility] Medical History Transaminitis History of Graves' disease Pilonidal cyst Substance abuse [place] (obstructive sleep apnea) Nicotine dependence, cigarettes, uncomplicated History of abnormal mammogram Hidradenitis suppurativa Hyperlipidemia Hypertension Surgical History Hx of cataract surgery History of colonoscopy (~2013) History of bunionectomy (~2011) History of axillary surgery (~2013) History of cholecystectomy History of umbilical hernia repair (~2016) Family History Paternal Aunt Breast cancer Mother Cancer of mandible Other [place] (obstructive sleep apnea) Social History Alcohol intake: current Alcohol intake frequency: does not drink Patient Tobacco Use Status: Current everyday Tobacco user Cigarette Packs Per Day: 0.75 Cigarettes Per Day: 15 Years Smoked: 36 (onset age 19) Current occupational status: unemployed Female Reproductive History Menstrual Age of Menarche: 9 Review of Systems Const All systems reviewed & are unremarkable except as noted in HPI and below Physical Exam Vital Signs: BMI result Body Mass Index 27.3 Const General: cooperative, healthy appearing, comfortable, no acute distress, well developed, alert and awake Orientation/consciousness: patient oriented x3 HEENT Head: Yes normal to inspection, Yes normocephalic and Yes atraumatic Eyes General: appearance normal, both eyes and all related structures EOM: EOMs intact bilaterally Neck Neck: Yes normal visual inspection and Yes no lymphadenopathy Resp Effort & Inspection: normal respiratory effort and able to speak in complete sentences Cardio Jugular venous distension: no JVD Rate: regular rate Peripheral pulses: Peripheral pulses 2+ throughout GI Inspection: Yes normal to inspection Palpation (GI): Soft to palpation Skin General skin exam: no rashes or lesions noted Rashes: no rashes Neuro General: patient oriented x3 Extrem Other: Evaluation of Left Upper Extremity: The patient is alert, oriented, and in no acute distress Neuro: Median, Ulnar, Radial nerves motor and sensory intact and sensation is normal to the tips of all digits Vascular: Cap refill brisk ROM: She can make a fist and extend all her digits No locking or catching Smooth wrist flexion & extension Full pronosupination without pain Skin: No lacerations or abrasions. General: No Ecchymosis. No Erythema or evidence of infection. She has a left volar wrist ganglion, measuring ~1cm in diameter, and has not changed in size for ~5 years Psych Appearance: grossly normal Mental Status: mental status grossly normal Affect: normal affect Attitude: cooperative Assessment & Plan Assessment & Plan (1) Ganglion cyst of volar aspect of left wrist: Code(s): M67.432 - Ganglion, left wrist Category: Medical (2) Diabetes: Code(s): E11.9 - Type 2 diabetes mellitus without complications Category: Medical (3) COPD (chronic obstructive pulmonary disease): Code(s): J44.9 - Chronic obstructive pulmonary disease, unspecified Category: Medical (4) Nicotine dependence, cigarettes, uncomplicated: Comment: (current smoker - onset 19, 3/4ppd x 38yrs, 28pyh, in LDCT program) Code(s): F17.210 - Nicotine dependence, cigarettes, uncomplicated Category: Medical Plan Ms. Barth is a 58-year-old female, who is Surinamese speaking, presents in the office today for her preoperative history and physical exam prior to a left ganglion cyst excision to be performed on 07/20/[address] Gin Hartley. Patient has an allergy history, as follows: - Sulfamethoxazole; itching -Trimethoprim; itching -Codeine; nausea and vomiting -Fluoxetine; nausea and vomiting -Ibuprofen; nausea and vomiting -Sulfa; itching Patient is currently taking, as follows: - Aspirin 81 mg PO QAM -Cholecalciferol 50 mcg PO QAM -Clonidine HCI 0.2 mg PO Bedtime -Cyclobenzaprine 10 mg PO TID PRN -Diltiazem HCI ER 360 mg PO QAM -Dulaglutide 1.5 mg subcut QWeek -Fluticasone propion=salmeterol 250-50 mcg/dose inhalation BID -Fluticasone propionate 50 mcg/actuation intranasal daily -Hydrochlorothiazide 25 mg PO QAM -Lactobac 66-Bifido 4-S.thermo 3 billion cells 1 cap PO daily -Levothyroxine 137 mcg PO QAM -Lisinopril 40 mg PO QAM -Magnesium oxide 400 mg PO PRN -Metformin ER 1,000 mg PO BID -Montelukast 10 mg PO QPM -Omeprazole 20 mg PO BID -Pravastatin 80 mg PO bedtime -Psyllium husk 0.4 grams PO BID -Tiotropium bromide 1 cap inhalation daily Patient has a medical history, as follows: -Mixed irritable bowel syndrome -Diastasis of rectus abdominis -Exocrine pancreatic insufficiency -Substance abuse -Transaminitis -Cystocele with prolapse -Depression -Hypothyroid -Diabetes -[place] on CPAP -Nicotine dependence -History of Graves' disease -Hidradenitis suppurativa -Hyperlipidemia -Hyperlipidemia -COPD Patient has a surgical history, as follows: -Hx of cataract surgery; Bilateral -Hx of colonoscopy; Dr. Lucy Arzate, [facility] [place] - 09/12/2013 -Hx of bunionectomy; Left Foot Tailor's Bunionectomy x 3 - Dr. Mary Bowen - 05/12/06,08/05/09, 07/05/11. -Hx of axillary surgery; Hidradenitis Suppurativa axilla excisions - Lt & Rt 04/16/97, Rt 02/11/99, Lt 12/17/07, Lt 01/10/14 -Hx of cholecystectomy -Hx of umbilical hernia repair; Dr. Willoughby, [facility] [place] - 01/10/2017 Patient has a social history, as follows: -Tobacco: Current daily use, 15 cigarettes per day I discussed in detail the procedure and what to expect pre and post operatively. We discussed the risks, benefits and alternatives to the surgery and the rehabilitation course. The risks include infection, bleeding, nerve injury, ongoing pain, swelling, and stiffness, perioperative risk of injury to bones and soft tissues, and blood clots. I have answered all questions and with their understanding they have consented to move forward with a left ganglion cyst excision to be performed on 07/20/[address] Gin Hartley. Follow-up will be at the post operative appointment on 08/02/2023 at 3:00 pm, or sooner if needed. Patient Instructions: Scribed by Toña Orozco pediatric medical assistant, for Anabel Mcmanus PA-C on 07/11/2023 at 11:32 am, EST. Coding Level of Care Code Global (74546) Diagnoses Ganglion cyst of volar aspect of left wrist M67.432 Diabetes E11.9 COPD (chronic obstructive pulmonary disease) J44.9 Nicotine dependence, cigarettes, uncomplicated F17.210
[2023-07-11 11:28] VITALS: BMI 27.3
== END 2023-07-11 11:40 | disposition home or self-care (01) ==
PROVIDERS: PCP Family Medicine; Visit Provider Physician Assistant
DX: M67.432 Ganglion, left wrist (principal); E11.9 Type 2 diabetes mellitus without complications; J44.9 Chronic obstructive pulmonary disease, unspecified; F17.210 Nicotine dependence, cigarettes, uncomplicated
CPT/HCPCS: 99024

== ENCOUNTER → 2023-07-11 11:11 | Outpatient (BNVA) | payer OTHER, SELFPAY | PROVIDERS: PCP Family Medicine; Visit Provider Physician Assistant | DX: Z01.818 Encounter for other preprocedural examination (principal); M67.432 Ganglion, left wrist; E11.9 Type 2 diabetes mellitus without complications; J44.9 Chronic obstructive pulmonary disease, unspecified; F17.210 Nicotine dependence, cigarettes, uncomplicated; Z79.82 Long term (current) use of aspirin; Z79.899 Other long term (current) drug therapy | CPT/HCPCS: 99212 ==

== ENCOUNTER 2023-07-21 11:56 | Outpatient (AMB) | payer OTHER, SELFPAY ==
--- NOTE | 2023-07-21 12:18 | A.OFFVIS_ITS ---
Vital Signs 07/21/23 12:31 Height 5 ft 4 in Weight 156 lb 8.451 oz BMI 26.9 BP 161/90 H Blood Pressure Location Rt brachial Position Sitting Pulse 84 Intake Visit Reasons: 4 week follow up Intake Note: Patient in office today in 4 weeks follow up IBS. CC: Patient reports that a few days ago she had an episode of abdominal pain. She states she feels that is gas stuck in her abdomen. Insurance Application Investigator Required: Yes Allergies sulfamethoxazole [From Bactrim] Allergy (Severe, Verified 07/21/23 12:34) Itching trimethoprim [From Bactrim] Allergy (Severe, Verified 07/21/23 12:34) Itching codeine [Codeine] Allergy (Intermediate, Verified 07/21/23 12:34) NAUSEA & VOMITING, vomiting fluoxetine [FLUOXETINE] Allergy (Intermediate, Verified 07/21/23 12:34) NAUSEA & VOMITING ibuprofen [IBUPROFEN] Allergy (Intermediate, Verified 07/21/23 12:34) NAUSEA & VOMITING Sulfa (Sulfonamide Antibiotics) Allergy (Mild, Verified 07/21/23 12:34) itching HPI HPI 4 week follow up: Details: Assessment & Plan (1) Transaminitis: Comment: 2020 labs BASELINE Total bilirubin 0.7 Alk-phos 82 AST/ALT 34/27 Platelets 244 Mitochondrial antibodies negative Smooth muscle antibodies negative Ferritin 120 Hepatitis a B and C screen negative HIV screen negative SINDHU 1:80 homogeneous Ultrasound of the abdomen WITH ELASTOGRAPHY (F0) 05/15/23 CURRENT LABS 05/07/23 Plt Count 306 Total Bilirubin 0.3 GGT 37 H AST 17 ALT 12 Alkaline Phosphatase 91 Liver Fibrosis Stage F0 Amylase 51 Lipase 36 Alpha Fetoprotein 1.6 Anti-Mitochondrial Ab NEGATIVE Anti-Smooth Muscle Ab <20 Tiss Transglutamin IgG 1.4 Tiss Transglutamin IgA <1.0 PEth 16:0/18.1 (POPEth) NEGATIVE PEth 16:0/18.2 (PLPEth) NEGATIVE Hepatitis A IgM Ab Nonreactive Hep Bs Antigen Negative Hep Bs Antibody NONREACTIVE Hep B Core Total Ab Nonreactive Hepatitis C Ab (EIA) Nonreactive HIV 1&2 Ab/P24 Ag 4thGn Nonreactive Ultrasound of the abdomen WITH ELASTOGRAPHY (F0) 05/15/23 IMPRESSION: 1. Mild increased liver echogenicity. 2. Liver elastography: Median liver stiffness 1.11 corresponding to high probably normal. Code(s): R74.01 - Elevation of levels of liver transaminase levels Category: Medical (2) Irritable bowel syndrome with both constipation and diarrhea: Code(s): K58.2 - Mixed irritable bowel syndrome Category: Medical Plan [place] #Low Live E COLI SEROTYPE 0157:H7 is the bacteria she had in the past. She was seeing Dr. Correa in the past but did not feel they were progressing on this topis and her IBS. She has used flax seed and yuri in the past. She is fearful that abx would give her diarrhea, and they are not effective against E coli, I explain this to her and she now understands. She has intermittent diarrhea, but also alts with CIC. I think that we will rx fiber and a probiotic and explain that replenishing the good bacteria can crowd out the less helpful ones. She stopped the creon because i caused more bloating. She continues on omeprazole for her GERD with good control. Return office visit in 4 weeks to evaluate her progress. Medications: New psyllium husk (Daily Fiber) 0.4 grams PO BID 60 caps 6RF K58.2 - Mixed irritable bowel syndrome Lactobac 66-Bifido 4-S.thermo 3 billion cell (Advanced Probiotic-14) 1 cap PO DAILY 30 caps 6RF Discontinued [id number] 36,000-114,000- 180,000 unit (Creon) administer with meals and/or snacks Discontinued Reason: Doctor's Order 2 caps PO BID 120 caps 6RF K86.81 - Exocrine pancreatic insufficiency, K86.89 - Other specified diseases of pancreas TODAY'S VISIT [place] #Renate Live She is taking the fiber and the probiotic, she thinks - unsure about probitic. She had more bloating with the creon and stopped it. she still sees white balls in her stools, with, I think, is mucus - she says they look like eggs. But she also say she sees green stools like grapes, but sometimes they are yellow. She tends to see this when her looser. This leans towards the dx of mucus. she has had negative O&P when she had similar complaints. Stop Creon, will going to increase her fiber to multiple times a day and put her on omeprazole twice a day. With this she feels she is agreeable to a 6 month follow-up and will call me if she needs me sooner. [facility] Medical History Transaminitis History of Graves' disease Pilonidal cyst Substance abuse [place] (obstructive sleep apnea) Nicotine dependence, cigarettes, uncomplicated History of abnormal mammogram Hidradenitis suppurativa Hyperlipidemia Hypertension Surgical History Hx of cataract surgery History of colonoscopy (~2013) History of bunionectomy (~2011) History of axillary surgery (~2013) History of cholecystectomy History of umbilical hernia repair (~2016) Family History Paternal Aunt Breast cancer Mother Cancer of mandible Other [place] (obstructive sleep apnea) Social History Alcohol intake: current Alcohol intake frequency: does not drink Patient Tobacco Use Status: Current everyday Tobacco user Cigarette Packs Per Day: 0.75 Cigarettes Per Day: 15 Years Smoked: 36 (onset age 19) Substance Use Type: Crack/Cocaine Current occupational status: unemployed Female Reproductive History Menstrual Age of Menarche: 9 Review of Systems Const Denies fatigue, Denies fever(s), Denies night sweats, Denies poor appetite and Denies weight loss ENT Reports Normal hearing present, Denies dental pain, Denies dysphagia, Denies hearing loss, Denies mouth pain, Denies odynophagia, Denies throat swelling, Denies tongue swelling and Reports other (Dentition adequate) Card Reports no additional complaints Resp Reports no additional complaints GI Details: Denies abdominal pain, Denies melena, Reports bloating, Denies hematochezia, Reports constipation, Denies GI cramping, Denies dysphagia, Denies excessive flatus, Denies early satiety, Reports heartburn, Reports diarrhea, Denies nausea, Denies odynophagia, Denies vomiting and Denies hematemesis Skin/Breast Denies pruritus, Denies lesions, Denies rash and Denies jaundice Neuro Reports Normal hearing present and Denies Abnormal speech present Endo Denies fatigue Aller/Immun Denies throat swelling and Denies tongue swelling Physical Exam Vital Signs: Last Vital Signs Pulse 84 07/21/23 12:31 BP 161/90 H 07/21/23 12:31 BMI result Body Mass Index 26.9 Const General: cooperative, no acute distress, well developed and well groomed Nutritional Appearance: average body habitus and well nourished Orientation/consciousness: oriented to person, oriented to place and oriented to time Limitations: No language barrier HEENT Head: Yes normocephalic and Yes atraumatic Eyes Other: exophtalmos Pupils: Equal, round and reactive pupils present Neck Neck: Yes normal visual inspection and Yes no lymphadenopathy Thyroid: Thyroid normal Resp Effort & Inspection: normal respiratory effort and able to speak in complete sentences Auscultation: clear to auscultation bilaterally Cardio Rate: regular rate Rhythm: regular rhythm Heart sounds: Normal, physiologic split S2 sound present Peripheral pulses: radial pulses present and posterior tibial pulses present GI Inspection: No distended and No Abdominal panniculus present Palpation (GI): Soft to palpation, nontender, no guarding, not rigid and No hepatosplenomegaly present Percussion: Yes normal to percussion Auscultation: normal bowel sounds Rectal Exam - Female: deferred Skin General skin exam: no rashes or lesions noted, turgor normal, skin not dry, no jaundice, No spider nevi and no striae Rashes: no rashes Nails: normal Neuro General: oriented to person, oriented to place and oriented to time Cranial nerves: Yes Equal, round and reactive pupils present and Yes Normal hearing present Speech: No Abnormal speech present Extrem General: Yes normal to inspection, No clubbing, No cyanosis and No edema Psych Appearance: grossly normal and well kempt Mental Status: mental status grossly normal Speech and movement: Normal speech and movement present Affect: normal affect Attitude: cooperative Thought process: Normal thought process present and not confabulating Thought content: Normal thought content present Insight: Limited insight present (Psych) Judgement: Limited judgement present (Psych) Assessment & Plan Assessment & Plan (1) Irritable bowel syndrome with both constipation and diarrhea: Code(s): K58.2 - Mixed irritable bowel syndrome Category: Medical (2) Pancreatic atrophy: Code(s): K86.89 - Other specified diseases of pancreas Category: Medical (3) Exocrine pancreatic insufficiency: Code(s): K86.81 - Exocrine pancreatic insufficiency Category: Medical (4) Cystocele with prolapse: Code(s): N81.4 - Uterovaginal prolapse, unspecified Category: Medical (5) Diastasis of rectus abdominis: Code(s): M62.08 - Separation of muscle (nontraumatic), other site Category: Medical Plan [place] #Renate German She is taking the fiber and the probiotic, she thinks - unsure about probitic. She had more bloating with the creon and stopped it. she still sees white balls in her stools, with, I think, is mucus - she says they look like eggs. But she also say she sees green stools like grapes, but sometimes they are yellow. She tends to see this when her looser. This leans towards the dx of mucus. she has had negative O&P when she had similar complaints. Stop Creon, will going to increase her fiber to multiple times a day and put her on omeprazole twice a day. With this she feels she is agreeable to a 6 month follow-up and will call me if she needs me sooner. Medications: New omeprazole 20 mg PO BID 60 caps 6RF Changed From psyllium husk 0.4 grams PO BID 60 caps 6RF K58.2 - Mixed irritable bowel syndrome To psyllium husk (Daily Fiber) 0.4 grams PO BID 60 caps 6RF K58.2 - Mixed irritable bowel syndrome Coding Level of Care Code Est Pt Level 3 (96250) Diagnoses Irritable bowel syndrome with both constipation and diarrhea K58.2 Pancreatic atrophy K86.89 Exocrine pancreatic insufficiency K86.81 Cystocele with prolapse N81.4 Diastasis of rectus abdominis M62.08
[2023-07-21 12:31] VITALS: BP 161/90; PULSE 84; BMI 26.9
== END 2023-07-21 12:47 | disposition home or self-care (01) ==
PROVIDERS: PCP Family Medicine; Visit Provider Nurse Practitioner
DX: K58.2 Mixed irritable bowel syndrome (principal); K86.89 Other specified diseases of pancreas; K86.81 Exocrine pancreatic insufficiency; N81.4 Uterovaginal prolapse, unspecified; M62.08 Separation of muscle (nontraumatic), other site
CPT/HCPCS: 99213

== ENCOUNTER → 2023-07-21 11:56 | Outpatient (BNVA) | payer OTHER, SELFPAY | PROVIDERS: PCP Family Medicine; Visit Provider Nurse Practitioner | DX: K58.2 Mixed irritable bowel syndrome (principal); K86.81 Exocrine pancreatic insufficiency; N81.4 Uterovaginal prolapse, unspecified; M62.08 Separation of muscle (nontraumatic), other site | CPT/HCPCS: 99212 ==

== ENCOUNTER 2023-09-22 11:06 | Outpatient (REF) | payer OTHER, SELFPAY ==
[2023-09-22 13:30] LABS: Anion Gap 16 (12-20); Blood Urea Nitrogen 29 mg/dL (9-16); Calcium 10.5 mg/dL (8.4-10.2); Carbon Dioxide 24 mmol/L (22-29); Chloride 106 mmol/L (96-108); Estimated Glomerular Filt Rate 38; Glucose Random 116 mg/dL (60-115); Magnesium 1.6 mg/dL (1.6-2.6); Potassium 4.9 mmol/L (3.3-5.1); Sodium 141 mmol/L (135-145)
[2023-09-22 13:53] LABS: TSH reflex Free T4 0.06 uIU/mL (0.32-4.0)
[2023-09-22 14:28] LABS: Free T4 (Free Thyroxine) 1.41 ng/dL (0.71-1.85)
== END 2023-09-22 11:07 | disposition home or self-care (01) ==
LOC: HO.HHCL 11:06
PROVIDERS: Visit Provider Family Medicine
DX: I10 Essential (primary) hypertension (principal); E83.42 Hypomagnesemia; E89.0 Postprocedural hypothyroidism
CPT/HCPCS: 36415; 80048; 83735; 84439; 84443

== ENCOUNTER 2023-10-17 15:07 | Outpatient (REF) | payer OTHER, SELFPAY ==
--- NOTE | ~2023-10-17 | CT_ITS ---
EXAMINATION: CT LOW-DOSE SCREENING CHEST WITHOUT CONTRAST CLINICAL INFORMATION: Nicotine dependence, cigarettes, uncomplicated. The patient is a current smoker with a 49 pack-year history of smoking. COMPARISON: CT chest 09/21/2022 and 08/14/2020. TECHNIQUE: Multidetector volumetric CT imaging of the chest is performed on a Siemens SOMATOM Definition scanner without contrast using low dose technique. Additional 2D coronal and sagittal reformatted images and axial 3D maximum intensity projection (MIP) images are generated on the CT workstation. This CT examination was performed using dose optimization techniques as appropriate, variously including the following: *Automated exposure control. *Adjustment of mA and/or kV according to patient size (this includes techniques or standardized protocols for targeted exams where dose is matched to indication/reason for exam; i.e. extremities or head). *Use of iterative reconstruction technique. TOTAL EXAM DLP: 41 mGy-cm. CTDIvol: 1.31 mGy. FINDINGS: PULMONARY NODULES: Multiple scattered calcified granulomas are present. No suspicious noncalcified nodules are seen. LUNGS: Lungs bilaterally symmetrically expanded. There is [id number] emphysema and mild diffuse bronchial thickening. No effusion or pneumothorax. Central airways patent. MEDIASTINUM: No mediastinal, hilar or axillary adenopathy or free fluid collection. CORONARY ARTERY CALCIFICATION: Mild. THYROID GLAND: Unremarkable to the extent seen. CARDIOVASCULAR STRUCTURES: Aortic and heart size normal. No pericardial effusion. CHEST WALL/AXILLA: Unremarkable. UPPER ABDOMEN: Included portions of the solid organs in the upper abdomen unremarkable on noncontrast imaging. Status post cholecystectomy. OSSEOUS STRUCTURES: No suspicious focal findings. CT/CT lung screening IMPRESSION: No findings seen suspicious for malignancy. ASSESSMENT: 1. Lung-RADS Category 1: Negative. There are no nodules or there are definitely benign nodules. N/A. 2. Lung-RADS Category S: Negative. There are no clinically significant or potentially clinically significant findings not related to the lungs requiring urgent additional evaluation. RECOMMENDATION: Continued routine annual low-dose CT lung screening in 1 year is recommended. An order for CT CHEST LOW DOSE CANCER SCREENING ([id number]) can be placed. Electronically signed by: Vineet Rivera MD 11/01/2023 12:16 AM EDT
== END 2023-10-17 15:08 | disposition home or self-care (01) ==
LOC: HO.CT 15:07
PROVIDERS: PCP Family Medicine; Visit Provider Physician Assistant Medical
DX: F17.210 Nicotine dependence, cigarettes, uncomplicated (principal); Z13.89 Encounter for screening for other disorder
CPT/HCPCS: 71271

== ENCOUNTER 2023-10-17 15:38 | Emergency (ER) | payer OTHER, SELFPAY ==
--- NOTE | ~2023-10-17 | US_ITS ---
EXAMINATION: US TRIPLEX LOWER EXTREMITY, RIGHT CLINICAL INFORMATION: Pain COMPARISON: None available. TECHNIQUE: Color-flow triplex imaging with spectral analysis and compression Doppler were performed on the right lower extremity. FINDINGS: Respiratory variation, normal compression and augmented flow are noted throughout the right lower extremity. The visualized common femoral vein, superficial femoral vein, profunda femoral vein, popliteal vein and midcalf peroneal and posterior tibial venous segments show no evidence of deep venous thrombosis. There is no Smith's cyst. US/US venous duplex LE RT IMPRESSION: No evidence of deep venous thrombosis involving the right lower extremity. If the patient's symptoms persist, followup ultrasound in 5 days 7 days might be of value to exclude proximal propagation from a non-visualized calf vein. Electronically signed by: Win Whyte MD 10/17/2023 05:31 PM EDT
[2023-10-17 16:16] VITALS: BP 92/56; PULSE 97; RESP 16; TEMP 36.5; O2SAT 98; BMI 26.8
--- NOTE | 2023-10-17 16:21 | ED_ITS ---
HPI - General Adult General Chief complaint: General Medical Stated complaint: Calf pain both legs/doesn't feel good Time Seen by Provider: 10/17/23 22:56 Source: patient Limitations: language barrier History of Present Illness ED Provider: Jennifer Grady PA-C HPI narrative: 58-year-old female with history of diabetes, IBS, exocrine pancreatic insufficiency, hypothyroidism and depression presents with multiple complaints. Patient states over the past 2 days she has been having nausea vomiting diarrhea, those symptoms have since resolved. In addition, patient complains of ongoing right lower extremity discomfort. Pain worse with walking. To note, patient has been told that she has arthritis. Denies calf swelling. Denies history of DVT. Denies new activity that could have precipitated her symptoms. Related Data Home Medications ?Medication ?Instructions ?Recorded ?Confirmed alcohol swabs 1 pad topical QID 09/22/20 09/25/20 aspirin 81 mg tablet,delayed 81 mg PO QAM 09/22/20 07/19/23 release blood sugar diagnostic #10 ea 09/22/20 09/22/20 cholecalciferol (vitamin D3) 25 50 mcg PO QAM 09/22/20 07/19/23 mcg (1,000 unit) tablet clonidine HCl 0.2 mg tablet 0.2 mg PO BEDTIME 09/22/20 07/19/23 diltiazem HCl 360 mg capsule,24 360 mg PO QAM 09/22/20 07/19/23 hr,extended release dulaglutide 0.75 mg/0.5 mL 1.5 mg subcut QWEEK 09/22/20 07/19/23 subcutaneous pen injector fluticasone propionate 50 1 spray intranasal DAILY 09/22/20 07/19/23 mcg/actuation nasal spray,suspension hydrochlorothiazide 25 mg tablet 25 mg PO QAM 09/22/20 07/19/23 lancets 33 gauge #100 ea 09/22/20 09/22/20 lisinopril 40 mg tablet 40 mg PO QAM 09/22/20 07/19/23 montelukast 10 mg tablet 10 mg PO QPM 09/22/20 07/19/23 pravastatin 80 mg tablet 80 mg PO BEDTIME 09/22/20 07/19/23 tiotropium bromide 18 mcg capsule 1 cap inhalation DAILY 09/22/20 07/19/23 with inhalation device magnesium oxide 400 mg (241.3 mg 400 mg PO 10/12/22 magnesium) tablet fluticasone 250 mcg-salmeterol 50 1 ea inhalation BID 04/12/23 07/19/23 mcg/dose blistr powdr for inhalation metformin 500 mg tablet,extended 1,000 mg PO BID 04/12/23 07/19/23 release 24 hr levothyroxine 125 mcg tablet 125 mcg PO QAM 07/19/23 07/19/23 Previous Rx's ?Medication ?Instructions ?Recorded cyclobenzaprine 10 mg tablet 10 mg PO TID PRN muscle pain or 11/08/20 spasm #20 tabs Mwgrurxvkkewj-Swfbvurdxwvoeyv-T.thermophilus 1 cap PO DAILY #30 caps 06/21/23 3 billion cell capsule (Advanced Probiotic-14) omeprazole 20 mg capsule,delayed 20 mg PO BID #60 caps 07/21/23 release psyllium husk 0.4 gram capsule 0.4 g PO BID #60 caps 07/21/23 (Daily Fiber) Allergies Allergy/AdvReac Type Severity Reaction Status Date / Time sulfamethoxazole Allergy Severe Itching Verified 10/17/23 16:17 [From Bactrim] trimethoprim [From Bactrim] Allergy Severe Itching Verified 10/17/23 16:17 codeine [Codeine] Allergy Intermediate NAUSEA & Verified 10/17/23 16:17 VOMITING, vomiting fluoxetine [FLUOXETINE] Allergy Intermediate NAUSEA & Verified 10/17/23 16:17 VOMITING ibuprofen [IBUPROFEN] Allergy Intermediate NAUSEA & Verified 10/17/23 16:17 VOMITING Sulfa (Sulfonamide Allergy Mild itching Verified 10/17/23 16:17 Antibiotics) Review of Systems 2 Review of Systems: Yes all other systems are reviewed and are negative Constitutional: Constitutional: Denies fever(s) Cardiovascular: Cardiovascular: Denies chest pain and Denies dyspnea Respiratory: Respiratory: Denies dyspnea Gastrointestinal: Gastrointestinal: Denies abdominal pain, Reports diarrhea, Reports nausea and Reports vomiting Musculoskeletal: Musculoskeletal: Reports arthralgias and Denies joint swelling PMFSH Past Medical History Attestation statement: The following information was validated with the patient. Medical History Transaminitis History of Graves' disease Pilonidal cyst Substance abuse [place] (obstructive sleep apnea) Nicotine dependence, cigarettes, uncomplicated History of abnormal mammogram Hidradenitis suppurativa Hyperlipidemia Hypertension Surgical History Hx of cataract surgery History of colonoscopy (~2013) History of bunionectomy (~2011) History of axillary surgery (~2013) History of cholecystectomy History of umbilical hernia repair (~2016) Family History Family History Paternal Aunt Breast cancer Mother Cancer of mandible Other [place] (obstructive sleep apnea) Social History Social History Alcohol intake: current Alcohol intake frequency: does not drink Patient Tobacco Use Status: Current everyday Tobacco user Cigarette Packs Per Day: 0.75 Cigarettes Per Day: 15 Years Smoked: 36 (onset age 19) Smoked in Last 30 Days: No Use of substances other than those prescribed or required for medical reasons: No Substance Use Type: Crack/Cocaine Advance Directives: No Advance Directives Information Provided: No Do you have a plan to hurt others: No Plan Patient : No Current occupational status: unemployed Physical Exam ED Vital Signs: Vital Signs - 24 hr 10/17/23 22:39 10/18/23 00:00 10/18/23 01:31 Temperature 98.1 F 98.0 F 98.0 F Pulse Rate 97 81 100 Respiratory Rate 16 18 18 Blood Pressure 99/62 105/58 L 138/64 Pulse Oximetry 98 99 99 Oxygen Delivery Method Room Air Room Air Room Air 10/18/23 02:25 Temperature 98.0 F Pulse Rate 100 Respiratory Rate 18 Blood Pressure 138/64 Pulse Oximetry 99 Oxygen Delivery Method BMI result Body Mass Index 26.8 Const Other: Alert, well in appearance, sitting up in bed on her phone Orientation/consciousness: patient oriented x3 Resp Other: Nonlabored respiration Cardio Other: Normal peripheral perfusion GI Other: Abdomen is soft, nondistended, nontender no guarding Skin Other: Warm dry no rash Neuro General: patient oriented x3, no focal motor deficits and CN's II-XI intact bilaterally Extrem Other: Full flexion-extension from the knee, the calf is not swollen, there is no overlying erythema or warmth noted Psych Other: Calm cooperative Course Course Course Narrative: AIDAN, this is a rapid medical exam performed by Raphael Ortega please refer to primary provider for complete H&P- 58 year old female presents for evaluation of multimple complaints. She complains of general weakness and her legs feeling weak. She reports diarrhea for one week. She also complains of 2 weeks of right calf pain. Plan for labs, stool studies, us right lower extremity. Reevaluation(s) Reevaluation #1: Upon completion of IV fluid, the patient did not want to stay for repeat labs to be sure that her potassium and creatinine normalized. We will send in discharge instructions that she needs to follow up today with primary care for repeat labs. Medications Administered Discontinued Medications Generic Name Dose Route Start Last Admin Trade Name Freq PRN Reason Stop Dose Admin Sodium Chloride 1,000 mls @ 999 mls/hr 10/18/23 00:15 10/18/23 00:13 Ns IV 10/18/23 01:15 999 mls/hr .Q1H1M NEY Administration Sodium Chloride 1,000 mls @ 999 mls/hr 10/18/23 00:15 10/18/23 00:13 Ns IV 10/18/23 01:15 999 mls/hr .Q1H1M NEY Administration Medical Decision Making Medical Decision Making MDM Narrative: 58-year-old female with history of diabetes, IBS, exocrine pancreatic insufficiency, hypothyroidism and depression presents with multiple complaints. Patient states over the past 2 days she has been having nausea vomiting diarrhea, those symptoms have since resolved. In addition, patient complains of ongoing right lower extremity discomfort. Pain worse with walking. To note, patient has been told that she has arthritis. Denies calf swelling. Denies history of DVT. Denies new activity that could have precipitated her symptoms. Problem: Diabetes, IBS, exocrine pancreatic insufficiency History: Per patient I have considered the following differential diagnoses: Viral gastroenteritis, diverticulitis, exacerbation of IBS, DVT, fracture, dislocation, sprain Plan: Screening labs and DVT study obtained from triage. She does not have a DVT. X-rays not indicated, there has been no trauma, she is simply having discomfort, her exam was benign, it is known that she has arthritis. She has no report of abdominal pain, and her exam was benign, imaging not warranted. We will give IV fluids as she is found to be clinically dehydrated. I have independently reviewed the following tests: Labs: Slight leukocytosis, not anemic, potassium subtly elevated in the setting of an CHEMO, creatinine is 2.79, lipase 86 DVT study right lower extremity:EXAMINATION: US TRIPLEX LOWER EXTREMITY, RIGHT CLINICAL INFORMATION: Pain COMPARISON: None available. TECHNIQUE: Color-flow triplex imaging with spectral analysis and compression Doppler were performed on the right lower extremity. FINDINGS: Respiratory variation, normal compression and augmented flow are noted throughout the right lower extremity. The visualized common femoral vein, superficial femoral vein, profunda femoral vein, popliteal vein and midcalf peroneal and posterior tibial venous segments show no evidence of deep venous thrombosis. There is no Smith's cyst. US/US venous duplex LE RT IMPRESSION: No evidence of deep venous thrombosis involving the right lower extremity. If the patient's symptoms persist, followup ultrasound in 5 days 7 days might be of value to exclude proximal propagation from a non-visualized calf vein. Electronically signed by: Win Whyte MD 10/17/2023 05:31 PM EDT RP Differential Diagnosis Differential Diagnoses: The differential diagnosis associated with the presentation includes Lab Data 10/17/23 16:34 10/17/23 16:34 Labs: Lab Results 10/17/23 10/17/23 Range/Units 16:34 23:12 WBC 13.2 H (4.8-10.8) X10*3/uL RBC 4.28 (4.20-5.50) X10*6/uL Hgb 12.4 (12.0-16.0) g/dl Hct 37.5 (37.0-47.0) % MCV 87.6 (80.0-98.0) fL MCH 29.0 (27.0-33.0) pg MCHC 33.1 (31.0-35.0) g/dl RDW 13.4 (11.0-16.0) % Plt Count 287 (160-400) X10*3/uL MPV 11.1 (9.4-12.3) fL Immature Gran % (Auto) 1.1 H (0.0-0.4) % Neut % (Auto) 57.6 (45-73) % Lymph % (Auto) 35.8 (20-40) % Kimble % (Auto) 3.7 (2-11) % Eos % (Auto) 1.4 (0-4) % Baso % (Auto) 0.4 (0-2) % Lymph # (Auto) 4.7 (1.2-4.9) X10*3/uL Kimble # (Auto) 0.5 (0.1-1.2) X10*3/uL Eos # (Auto) 0.2 (0.0-0.4) X10*3/uL Baso # (Auto) 0.1 (0.0-0.2) X10*3/uL Abs Immat Gran (auto) 0.14 H (0.00-0.03) X10*3/uL Absolute Neuts (auto) 7.6 (2.0-8.3) x10*3/uL Absolute Nucleated RBC 0.000 (0.0-0.012) X10*3/uL Nucleated RBC % (auto) 0.0 (0.0-0.2) /100WBC Sodium 139 (135-145) mmol/L Potassium 5.6 H (3.3-5.1) mmol/L Chloride 112 H (96-108) mmol/L Carbon Dioxide 17 L (22-29) mmol/L Anion Gap 16 (12-20) BUN 83 H (9-16) mg/dL Creatinine 2.79 H (0.5-1.4) mg/dL Estim Creat Clear Calc 20.7 Estimated GFR 17 Random Glucose 97 (60-115) mg/dL Calcium 8.5 D (8.4-10.2) mg/dL Total Bilirubin 0.3 (0.0-1.0) mg/dL AST 15 (5-31) U/L ALT 13 (0-31) U/L Alkaline Phosphatase 70 (39-117) U/L Total Protein 7.8 (6.5-8.0) g/dL Albumin 4.1 (3.5-5.0) g/dL Lipase 86 H (8-78) U/L Urine Color Yellow Urine Appearance Clear Urine pH 5.0 (5.0-9.0) Ur Specific Fleming 1.015 (1.005-1.025) Urine Protein Negative (Neg-Trace) mg/dL Urine Glucose (UA) Negative (Negative) mg/dL Urine Ketones Negative (Negative) mg/dL Urine Blood Negative (Negative) Urine Nitrite Negative (Negative) Ur Leukocyte Esterase Moderate (2+) H (Negative) Urine RBC 0-2 (0-2) /HPF Urine WBC 21-50 H (0-5) /HPF Ur Squamous Epith Cells 0-2 (0-2) /HPF Urine Bacteria None Seen (None Seen) Hyaline Casts 0-2 (0-2) /LPF COVID-19 (JESS) Negative (Negative) COVID-19 Clin Com See Note Discharge Plan Discharge Clinical Impression: Acute dehydration, Osteoarthritis Patient Disposition: Home, Self-Care Instructions: Dehydration (ED), Osteoarthritis (ED) Additional Instructions: You were found to be dehydrated, you received IV fluid therapy. See home care instructions. You should follow up with your primary care provider within the next day, for repeat labs, to make sure your kidney function has returned to normal. Prescriptions: No Action cyclobenzaprine 10 mg tablet 10 mg PO TID PRN (Reason: muscle pain or spasm) Qty: 20 0RF levothyroxine 125 mcg tablet 125 mcg PO QAM Trulicity 0.75 mg/0.5 mL pen injector 1.5 mg subcut QWEEK cholecalciferol (vitamin D3) 25 mcg (1,000 unit) tablet 50 mcg PO QAM Spiriva with HandiHaler 18 mcg capsule, w/inhalation device 1 cap inhalation DAILY fluticasone propionate 50 mcg/actuation spray,suspension 1 spray intranasal DAILY lisinopril 40 mg tablet 40 mg PO QAM hydrochlorothiazide 25 mg tablet 25 mg PO QAM alcohol swabs Pads, Medicated 1 pad topical QID montelukast 10 mg tablet 10 mg PO QPM pravastatin 80 mg tablet 80 mg PO BEDTIME clonidine HCl 0.2 mg tablet 0.2 mg PO BEDTIME aspirin 81 mg tablet,delayed release (DR/EC) 81 mg PO QAM diltiazem HCl 360 mg capsule,extended release 24 hr 360 mg PO QAM (DME) lancets 33 gauge misc See Rx Instructions topical QID Qty: 100 Rx Instructions: As directed (DME) FreeStyle Lite Strips Strip See Rx Instructions Not Applicable QID Qty: 10 Rx Instructions: As directed metformin 500 mg tablet extended release 24 hr 1,000 mg PO BID fluticasone propion-salmeterol 250-50 mcg/dose blister with device 1 ea inhalation BID Advanced Probiotic-14 3 billion cell capsule 1 cap PO DAILY Qty: 30 6RF omeprazole 20 mg capsule,delayed release(DR/EC) 20 mg PO BID Qty: 60 6RF psyllium husk [Daily Fiber] 0.4 gram capsule 0.4 g PO BID Qty: 60 6RF magnesium oxide 400 mg (241.3 mg magnesium) tablet 400 mg PO Interventions: ED Discharge Assessment Last Done: 10/18/23 02:25 Discharge Date/Time: 10/18/23 01:58 Print Language: [place]er
[2023-10-17 16:40] LABS: MANUAL DIFF FLAG NO
[2023-10-17 16:42] LABS: Basophils Absolute Auto 0.1 X10*3/uL (0.0-0.2); Basophils Percent Auto 0.4 % (0-2); Eosinophils Absolute Auto 0.2 X10*3/uL (0.0-0.4); Eosinophils Percent Auto 1.4 % (0-4); Hematocrit 37.5 % (37.0-47.0); Hemoglobin 12.4 g/dl (12.0-16.0); Imm Gran Abs Auto 0.14 X10*3/uL (0.00-0.03); Imm Gran Pct Auto 1.1 % (0.0-0.4); Lymphocytes Absolute Auto 4.7 X10*3/uL (1.2-4.9); Lymphocytes Percent Auto 35.8 % (20-40); Mean Corpuscular HGB Conc 33.1 g/dl (31.0-35.0); Mean Corpuscular Volume 87.6 fL (80.0-98.0); Mean Platelet Volume 11.1 fL (9.4-12.3); Monocytes Absolute Auto 0.5 X10*3/uL (0.1-1.2); Monocytes Percent Auto 3.7 % (2-11); Neutrophils Absolute Auto 7.6 x10*3/uL (2.0-8.3); Neutrophils Percent Auto 57.6 % (45-73); Platelet Count 287 X10*3/uL (160-400); Red Blood Count 4.28 X10*6/uL (4.20-5.50); Red Cell Distribution Width 13.4 % (11.0-16.0); White Blood Count 13.2 X10*3/uL (4.8-10.8)
[2023-10-17 16:53] LABS: COVID-19 Test Negative (Negative); IDNOW Serial# 58CA691E
[2023-10-17 16:55] LABS: Alanine Aminotransferase 13 U/L (0-31); Albumin Level 4.1 g/dL (3.5-5.0); Alkaline Phosphatase 70 U/L (39-117); Anion Gap 16 (12-20); Aspartate Amino Transferase 15 U/L (5-31); Bilirubin Total 0.3 mg/dL (0.0-1.0); Blood Urea Nitrogen 83 mg/dL (9-16); Calcium 8.5 mg/dL (8.4-10.2); Carbon Dioxide 17 mmol/L (22-29); Chloride 112 mmol/L (96-108); Creatinine Clr Calc Pharmacy 20.7; Estimated Glomerular Filt Rate 17; Glucose Random 97 mg/dL (60-115); Lipase 86 U/L (8-78); Potassium 5.6 mmol/L (3.3-5.1); Sodium 139 mmol/L (135-145); Total Protein 7.8 g/dL (6.5-8.0)
[2023-10-17 22:39] VITALS: BP 99/62; PULSE 97; RESP 16; TEMP 36.7; O2SAT 98
[2023-10-17 23:31] LABS: Appearance Urine Clear; Color Urine Yellow; Glucose Urine UA Negative (Negative); Leukocyte Esterase Urine Moderate (2+) (Negative); Nitrite Urine Negative (Negative); Specific Gravity - Urine 1.015 (1.005-1.025); UMIC TRIGGER UACC YES; Urine Blood Negative (Negative); Urine Ketones Negative (Negative); Urine Protein Negative (Neg-Trace)
[2023-10-17 23:33] LABS: Bacteria Urine None Seen (None Seen); Hyaline Casts Urine 0-2 /LPF (0-2); RBC Urine 0-2 /HPF (0-2); Squamous Epithelial Cell Urine 0-2 /HPF (0-2); UACC Culture Trigger YES; WBC Urine 21-50 /HPF (0-5)
[2023-10-18] VITALS: BP 105/58; PULSE 81; RESP 18; TEMP 36.7; O2SAT 99
[2023-10-18] MEDS: 0.9 % Sodium Chloride 1,000 ML 999 ML IV ×2 (00:13)
[2023-10-18 01:31] VITALS: BP 138/64; PULSE 100; RESP 18; TEMP 36.7; O2SAT 99
[2023-10-18 02:25] VITALS: BP 138/64; PULSE 100; RESP 18; TEMP 36.7; O2SAT 99
== END 2023-10-18 01:58 | disposition home or self-care (01) ==
PROVIDERS: Physician Assistant; Emergency Provider Emergency Medicine; PCP Family Medicine
DX: M79.604 Pain in right leg (principal); M79.605 Pain in left leg; R60.0 Localized edema; R53.83 Other fatigue; G47.33 Obstructive sleep apnea (adult) (pediatric); F17.210 Nicotine dependence, cigarettes, uncomplicated; Z79.899 Other long term (current) drug therapy
CPT/HCPCS: 71271; 80053; 81001; 83690; 85025; 87086; 87635; 93971; 99284

== ENCOUNTER 2023-10-21 09:56 | Inpatient (IN) | payer OTHER, SELFPAY ==
[2023-10-21] VITALS (8 sets, daily range): BP systolic 104–160; BP diastolic 53–81; PULSE 45–103; RESP 16–20; TEMP 36.1–36.6; O2SAT 98; BMI 25.2
--- NOTE | ~2023-10-21 | CT_ITS ---
EXAMINATION: CT ABDOMEN AND PELVIS WITHOUT CONTRAST CLINICAL INFORMATION: Worsening pain, vomiting, acute renal failure COMPARISON: CT abdomen and pelvis 09/05/2019 TECHNIQUE: Multidetector volumetric imaging was performed from the superior aspect of the liver through the pubic symphysis. Sagittal and coronal reformatted images were obtained on the technologist's workstation. This CT examination was performed using dose optimization techniques as appropriate, variously including the following: *Automated exposure control *Adjustment of mA and/or kV according to patient size (this includes techniques or standardized protocols for targeted exams where dose is matched to indication/reason for exam; i.e. extremities or head) *Use of iterative reconstruction technique DLP: 457 mGy-cm FINDINGS: LUNG BASES: Few calcified granulomas in the left lung base. ABDOMINAL AND PELVIC WALL: Again seen is a chronic fluid collection extending from the umbilicus and to the ventral mesentery measuring approximately 2.3 cm, previously 2.5 cm which may reflect a chronic seroma. LIVER AND BILIARY TREE: Liver is enlarged measuring 18.9 cm in span, decreased from prior previously 24.5 cm. GALLBLADDER: Status post cholecystectomy. PANCREAS: Unremarkable. SPLEEN: Unremarkable. ADRENAL GLANDS: Unremarkable. KIDNEYS AND URETERS: Nonobstructing right renal stones measuring up to 3 mm new from prior. No hydronephrosis. GASTROINTESTINAL TRACT: Small hiatal hernia. Multiple fluid-filled thick-walled loops of jejunum in the left upper quadrant with perienteric inflammatory fat stranding and trace intermesenteric loops with fluid measuring borderline dilated to 2.8 cm, which appear somewhat clustered and morphology 5:38, 6:33. Colonic diverticulosis without evidence of diverticulitis. No pneumatosis or portal venous gas. Normal appendix. VASCULAR: Moderate atherosclerosis of the abdominal aorta. LYMPH NODES/PERITONEUM: No lymphadenopathy. FREE FLUID: Small volume of free fluid in the pelvis. BLADDER: Unremarkable. PELVIC VISCERA: 2 microscopic fat-containing lesions associated with the left ovary measuring 1.9 and 1.6 cm which could potentially reflect ovarian dermoids versus insinuation of the adjacent pelvic fat amongst surrounding adnexal vessels, recommend correlation with pelvic ultrasound. OSSEOUS STRUCTURES: Multilevel degenerative disc disease. CT/CT abdomen pelvis wo IV con IMPRESSION: 1. Multiple fluid-filled thick-walled loops of jejunum in the left upper quadrant with perienteric inflammatory fat stranding and trace intermesenteric loops with fluid measuring borderline dilated to 2.8 cm, which appear somewhat clustered and morphology. Differential considerations could include infectious/inflammatory enteritis, however given the somewhat clustered appearance of the loops of jejunum in the left upper quadrant, it raises the suspicion for a potential internal hernia. Recommend surgical evaluation. 2. There are 2 microscopic fat-containing lesions associated with the left ovary measuring 1.9 and 1.6 cm which could potentially reflect ovarian dermoids versus insinuation of the adjacent pelvic fat amongst surrounding adnexal vessels, recommend correlation with pelvic ultrasound. 3. Again seen is a chronic fluid collection extending from the umbilicus and to the ventral mesentery measuring approximately 2.3 cmwhich may reflect a chronic seroma. 4. Nonobstructing right renal stones measuring up to 3 mm new from prior. No hydronephrosis. 5. Liver is enlarged measuring 18.9 cm in span, decreased from prior. Electronically signed by: Juana Lopez MD 10/21/2023 11:45 AM EDT
--- NOTE | ~2023-10-21 | CT_ITS ---
EXAMINATION: CTA head and neck with and without contrast CLINICAL INFORMATION: Dizziness COMPARISON: None available. TECHNIQUE: Test bolus sequences followed by intravenous administration of 70 mL of Omnipaque 350 contrast. Helical imaging was performed in the axial plane from the skull vertex to the thoracic inlet. Delayed postcontrast imaging of the head was also performed. The data was processed at the anesthesiology technologist workstation for generation of MIP sequences. Angled MIPs and volume rendered reformatted images were also generated at an offline 3D workstation. Stenoses are assessed in accordance with NASCET criteria unless otherwise indicated. This CT examination was performed using dose optimization techniques as appropriate, variously including the following: *Automated exposure control *Adjustment of mA and/or kV according to patient size (this includes techniques or standardized protocols for targeted exams where dose is matched to indication/reason for exam; i.e. extremities or head) *Use of iterative reconstruction technique DLP: 2157 mGy-cm FINDINGS: BRAIN: No acute intracranial hemorrhage or infarct. The ellison-white matter differentiation is preserved. No midline shift or hydrocephalus. No acute extra-axial fluid collections. The osseous structures are unremarkable. Sequela of bilateral lens replacement. Otherwise, no acute orbital pathology. The paranasal sinuses and mastoid air cells are clear. CTA NECK: Common origin of the normal left and left common carotid artery, normal variant. Atherosclerotic calcifications at the origins of the innominate and left subclavian artery without significant stenosis. The origins and cervical segments of the common carotid arteries as well as the common carotid artery bifurcations are patent bilaterally. The cervical segments of the internal carotid arteries are also patent bilaterally. The origins and cervical segments of the vertebral arteries are patent bilaterally. No hemodynamically significant stenosis, dissection, aneurysm. The visualized branches of the external carotid arteries are unremarkable. CTA HEAD: Anterior circulation: The petrous, cavernous, supraclinoid segments of the internal carotid arteries are patent bilaterally. The major branches of the anterior and middle cerebral arteries as well as the anterior communicating complex are patent. No large vessel occlusion, saccular aneurysm, dissection. Posterior circulation: The intracranial vertebral arteries are patent bilaterally. The basilar artery is minimally tortuous in course however remains patent. The posterior cerebral and superior cerebellar arteries arise normally from the basilar summit. Left posterior cerebral artery. No aneurysm. On delayed imaging, the venous structures demonstrate normal contrast opacification. No filling defect. No abnormal intraparenchymal enhancement. Soft tissues: No suspicious neck mass or cervical adenopathy. Lungs: Clear. Bones: No acute osseous abnormality. No lytic or blastic osseous lesions. Multilevel degenerative changes of the visualized spine. CT/CT angio head neck IMPRESSION: 1. No acute intracranial hemorrhage or edematous territorial infarction. 2. No large vessel occlusion, saccular aneurysm, dissection or high-grade stenosis within the intracranial circulation. 3. No hemodynamically significant stenosis in the major arteries of the neck. Electronically signed by: Roseann Juan MD 10/21/2023 03:18 PM EDT
--- NOTE | 2023-10-21 10:11 | ED.NAVMDI ---
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 She presents today with c/o persistent diarrhea since 10/08 denies travel, food exposures, antibiotics, sick contacts. She notes upper abdominal pain and chronic nausea with intermittent vomiting. She vomited again yesterday. This AM tried to get up to smoke and felt very dizzy and weak. She states she cannot eat and feels horrible. No fevers, no GIB symptoms reported she states she has never had this before. She notes dizziness is worse with standing and trying to move around better with rest and eyes closed, denies hx of vertigo patient notes she went to go smoke this AM and felt dizzy worse with turning head left no numbness, weakness, worse with movements denies hx of vertigo states it started about 7am MD elicited complaint: nausea, vomiting, diarrhea and abdominal pain Onset (ago): day(s) () Description of vomiting: watery and bilious Description of diarrhea: watery Associated nausea: Yes Associated abdominal pain: Yes Location of pain: epigastric Pain consistency: constant Severity: moderate Quality: aching Exacerbating factors: eating and movement Relieving factors: none Context: other (denies) Associated symptoms: loss of appetite, malaise, nausea/vomiting, weakness and decreased urine output Related Data Home Medications ?Medication ?Instructions ?Recorded ?Confirmed alcohol swabs 1 pad topical QID 09/22/20 09/25/20 aspirin 81 mg tablet,delayed 81 mg PO QAM 09/22/20 07/19/23 release blood sugar diagnostic #10 ea 09/22/20 09/22/20 cholecalciferol (vitamin D3) 25 50 mcg PO QAM 09/22/20 07/19/23 mcg (1,000 unit) tablet clonidine HCl 0.2 mg tablet 0.2 mg PO BEDTIME 09/22/20 07/19/23 diltiazem HCl 360 mg capsule,24 360 mg PO QAM 09/22/20 07/19/23 hr,extended release dulaglutide 0.75 mg/0.5 mL 1.5 mg subcut QWEEK 09/22/20 07/19/23 subcutaneous pen injector fluticasone propionate 50 1 spray intranasal DAILY 09/22/20 07/19/23 mcg/actuation nasal spray,suspension hydrochlorothiazide 25 mg tablet 25 mg PO QAM 09/22/20 07/19/23 lancets 33 gauge #100 ea 09/22/20 09/22/20 lisinopril 40 mg tablet 40 mg PO QAM 09/22/20 07/19/23 montelukast 10 mg tablet 10 mg PO QPM 09/22/20 07/19/23 pravastatin 80 mg tablet 80 mg PO BEDTIME 09/22/20 07/19/23 tiotropium bromide 18 mcg capsule 1 cap inhalation DAILY 09/22/20 07/19/23 with inhalation device magnesium oxide 400 mg (241.3 mg 400 mg PO 10/12/22 magnesium) tablet fluticasone 250 mcg-salmeterol 50 1 ea inhalation BID 04/12/23 07/19/23 mcg/dose blistr powdr for inhalation metformin 500 mg tablet,extended 1,000 mg PO BID 04/12/23 07/19/23 release 24 hr levothyroxine 125 mcg tablet 125 mcg PO QAM 07/19/23 07/19/23 Previous Rx's ?Medication ?Instructions ?Recorded cyclobenzaprine 10 mg tablet 10 mg PO TID PRN muscle pain or 11/08/20 spasm #20 tabs Gpklgyfihmobn-Hxfhhztenbxsvci-A.thermophilus 1 cap PO DAILY #30 caps 06/21/23 3 billion cell capsule (Advanced Probiotic-14) omeprazole 20 mg capsule,delayed 20 mg PO BID #60 caps 07/21/23 release psyllium husk 0.4 gram capsule 0.4 g PO BID #60 caps 07/21/23 (Daily Fiber) Allergies Allergy/AdvReac Type Severity Reaction Status Date / Time sulfamethoxazole Allergy Severe Itching Verified 10/21/23 10:06 [From Bactrim] trimethoprim [From Bactrim] Allergy Severe Itching Verified 10/21/23 10:06 codeine [Codeine] Allergy Intermediate NAUSEA & Verified 10/21/23 10:06 VOMITING, vomiting fluoxetine [FLUOXETINE] Allergy Intermediate NAUSEA & Verified 10/21/23 10:06 VOMITING ibuprofen [IBUPROFEN] Allergy Intermediate NAUSEA & Verified 10/21/23 10:06 VOMITING Sulfa (Sulfonamide Allergy Mild itching Verified 10/21/23 10:06 Antibiotics) Review of Systems Review of Systems: Constitutional : No Weight loss, No Fever, No Chills ENT/Mouth : No sore throat, No Rhinorrhea Eyes: No Swelling, No Redness Cardiovascular : No Chest Pain, No SOB, NoEdema Respiratory : No Cough, No Sputum, No Wheezing Gastrointestinal : Positive Nausea, Positive Vomiting, positive Diarrhea, positive abdominal Pain, No Hematochezia, No Melena Genitourinary : No Dysuria, No Urinary Frequency, No Hematuria, No Urgency Musculoskeletal : No joint pain, No Myalgias, No Joint Swelling Skin : No Skin Lesions, No rash Neuro : No Weakness, No Numbness, pos Dizziness, No Headache Psych : No Anxiety/Panic, No Depression All other systems reviewed and are negative. Gastrointestinal: Gastrointestinal: Reports nausea PMFSH Past Medical History Attestation statement: The following information was validated with the patient. Source: old records reviewed Medical History Transaminitis History of Graves' disease Pilonidal cyst Substance abuse [place] (obstructive sleep apnea) Nicotine dependence, cigarettes, uncomplicated History of abnormal mammogram Hidradenitis suppurativa Hyperlipidemia Hypertension Surgical History Hx of cataract surgery History of colonoscopy (~2013) History of bunionectomy (~2011) History of axillary surgery (~2013) History of cholecystectomy History of umbilical hernia repair (~2016) Family History Family History Paternal Aunt Breast cancer Mother Cancer of mandible Other [place] (obstructive sleep apnea) Social History Social History Alcohol intake: current Alcohol intake frequency: does not drink Patient Tobacco Use Status: Current everyday Tobacco user Cigarette Packs Per Day: 0.75 Cigarettes Per Day: 15 Years Smoked: 36 (onset age 19) Smoked in Last 30 Days: No Use of substances other than those prescribed or required for medical reasons: No Substance Use Type: Crack/Cocaine Advance Directives: No Advance Directives Information Provided: Yes Patient : No Current occupational status: unemployed Physical Exam Vital Signs: Vital Signs: Last Vital Signs Temp 97 F 10/21/23 14:36 Pulse 53 10/21/23 14:36 Resp 16 10/21/23 14:36 BP 160/66 H 10/21/23 14:36 Pulse Ox 98 10/21/23 14:36 O2 Del Method Room Air 10/21/23 14:36 BMI result Body Mass Index 25.2 Appearance: Alert. Oriented X3. No acute distress. Eyes: Pupils equal, round and reactive to light. nystagmus horizontal more pronounced when looking to the left ENT: Pharynx moderate dry MM Neck: Normal inspection. Neck supple. CVS: Normal heart rate and rhythm. Pulses normal. Respiratory: No respiratory distress. Breath sounds normal. Abdomen: Soft and moderate epigastric ttp Skin: Skin warm and dry. Normal skin color. Normal skin turgor. Extremities: No lower extremity edema. Neuro: Oriented X 3. No motor deficit. No sensory deficit. NIH Stroke Scale Internal: Initial- Upon Arrival Level of Consciousness: Alert Level of Consciousness Questions: Answers both questions correctly Level of Consciousness Commands: Performs both tasks correctly Best Gaze: Normal Visual: No visual loss Facial Palsy: Normal Motor Arm (Right): No drift Motor Arm (Left): No drift Motor Leg (Right): No drift Motor Leg (Left): No drift Limb Ataxia: Absent Sensory: Normal Best Language: No aphasia Dysarthia: Normal Extinction and Inattention: No abnormality Score: 0 Course Course Course Narrative: symptoms are improving at rest and if she keeps her eyes closed but when she goes to get up the spinning and nystagmus returns when looking to the left will try IV ativan CTA pending Medications Administered Discontinued Medications Generic Name Dose Route Start Last Admin Trade Name Moise PRN Reason Stop Dose Admin Diphenhydramine HCl 25 mg 10/21/23 10:15 10/21/23 10:25 Diphenhydramine Hcl 50 Mg/Ml Vial IVPUSH 10/21/23 10:16 25 mg ONCE ONE Administration Lactated Ringer's 1,000 mls @ 999 mls/hr 10/21/23 10:15 10/21/23 12:24 Lr IV 10/21/23 11:15 Infused .Q1H1M ONE Infusion Lactated Ringer's 1,000 mls @ 999 mls/hr 10/21/23 10:15 10/21/23 12:24 Lr IV 10/21/23 11:15 Infused .Q1H1M ONE Infusion Iohexol 70 ml 10/21/23 14:53 10/21/23 14:54 Iohexol 350 Mg/Ml 100 Ml Infus..Btl IV 10/21/23 14:54 70 ml ONCE ONE Administration Iohexol 100 ml 10/21/23 14:54 10/21/23 14:55 Iohexol 350 Mg/Ml 100 Ml Infus..Btl IV 10/21/23 14:55 70 ml ONCE ONE Administration Meclizine HCl 25 mg 10/21/23 12:42 10/21/23 12:45 Meclizine Hcl 25 Mg Tablet PO 10/21/23 12:43 25 mg ONCE ONE Administration Metoclopramide HCl 10 mg 10/21/23 10:16 10/21/23 10:25 Metoclopramide Hcl 10 Mg/2 Ml Vial IVPUSH 10/21/23 10:17 10 mg ONCE ONE Administration Medical Decision Making Medical Decision Making MDM Narrative: 58 yo female with PMH of DM, IBS, hypothyroidism, HLD, HTN, exocrine pancreatic insufficiency here with c/o n/v/d and abdominal pain at this time given repeat visit will need basic labs, CT scan supportive mediactions, IVF x 2L, nausea medications, UA. Needs repeat Cr given her recent CHEMO. If she has BM will obtain stool studies as well. kidney function normal CTA angio head neck ordered, meclizine ordered 1243pm given the worsening with position changes no other symptoms such as numbness, weakness, vision changes and has nystagmus looking to the left doubt posterior stroke. Symptoms resolve with rest and eyes closed Differential Diagnosis Differential Diagnoses: The differential diagnosis associated with the presentation includes viral syndrome, gastroenteritis, colitis, CHEMO Admission/Observation Consideration of admission/observation: Escalation of care including admission/observation considered admit for intractable n/v persistent dizziness despite medications and abdominal pain repeat visit IVF Consult Healthcare Provider Management of the patient was discussed with: Hospitalist (will admit) and Edge Beader (William aware will follow) Lab Data [facility] Lab Attestation statement: I reviewed the patient's lab results. 10/21/23 10:23 10/21/23 10:23 Labs: Lab Results 10/21/23 10/21/23 Range/Units 10:23 13:39 WBC 12.6 H (4.8-10.8) X10*3/uL RBC 4.25 (4.20-5.50) X10*6/uL Hgb 12.3 (12.0-16.0) g/dl Hct 37.1 (37.0-47.0) % MCV 87.3 (80.0-98.0) fL MCH 28.9 (27.0-33.0) pg MCHC 33.2 (31.0-35.0) g/dl RDW 13.2 (11.0-16.0) % Plt Count 248 (160-400) X10*3/uL MPV 11.0 (9.4-12.3) fL Immature Gran % (Auto) 0.8 H (0.0-0.4) % Neut % (Auto) 82.5 H (45-73) % Lymph % (Auto) 14.3 L (20-40) % [place] % (Auto) 1.7 L (2-11) % Eos % (Auto) 0.2 (0-4) % Baso % (Auto) 0.5 (0-2) % Lymph # (Auto) 1.8 (1.2-4.9) X10*3/uL [place] # (Auto) 0.2 (0.1-1.2) X10*3/uL Eos # (Auto) 0.0 (0.0-0.4) X10*3/uL Baso # (Auto) 0.1 (0.0-0.2) X10*3/uL Abs Immat Gran (auto) 0.10 H (0.00-0.03) X10*3/uL Absolute Neuts (auto) 10.4 H (2.0-8.3) x10*3/uL Absolute Nucleated RBC 0.000 (0.0-0.012) X10*3/uL Nucleated RBC % (auto) 0.0 (0.0-0.2) /100WBC Sodium 142 (135-145) mmol/L Potassium 3.7 D (3.3-5.1) mmol/L Chloride 111 H (96-108) mmol/L Carbon Dioxide 18 L (22-29) mmol/L Anion Gap 17 (12-20) BUN 25 H (9-16) mg/dL Creatinine 1.20 (0.5-1.4) mg/dL Estim Creat Clear Calc 46.7 Estimated GFR 46 Random Glucose 114 (60-115) mg/dL Calcium 7.4 L D (8.4-10.2) mg/dL Total Bilirubin 0.5 (0.0-1.0) mg/dL AST 17 (5-31) U/L ALT 18 (0-31) U/L Alkaline Phosphatase 68 (39-117) U/L Total Creatine Kinase 75 (26-140) U/L Total Protein 7.5 (6.5-8.0) g/dL Albumin 3.9 (3.5-5.0) g/dL Lipase 38 (8-78) U/L Stl C. cayetanensis PCR Not Detected (Not Detect.) Stool Rotavirus A PCR Not Detected (Not Detect.) Stl Adenov F 40/41 PCR Not Detected (Not Detect.) Stool Astrovirus (PCR) Not Detected (Not Detect.) Stool Campylobacter PCR Not Detected (Not Detect.) Stool Cryptosporidium PCR Not Detected (Not Detect.) Stl Sh Tox Pr E STEC PCR Not Detected (Not Detect.) Stool E coli O157 PCR Not applicable (Not Detect.) Stl Enterotoxigenic E PCR Not Detected (Not Detect.) Stool EPEC (PCR) Not Detected (Not Detect.) Stool EAEC (PCR) Not Detected (Not Detect.) Stl E. histolytica PCR Not Detected (Not Detect.) Stool Giardia Lamblia PCR Not Detected (Not Detect.) Stl P. shigelloides PCR Not Detected (Not Detect.) Stool Salmonella PCR Not Detected (Not Detect.) Stool Sapovirus (PCR) Not Detected (Not Detect.) Stl Shigella/EIEC PCR Not Detected (Not Detect.) St Y.enterocolitica PCR Not Detected (Not Detect.) Stool Vibrio (PCR) Not Detected (Not Detect.) Stl Vibrio cholerae PCR Not Detected (Not Detect.) Stl Norovirus GI/GII PCR Not Detected (Not Detect.) C. difficile Tox B Gene NEGATIVE (Negative) Influenza Type A (PCR) NEGATIVE (Negative) Influenza Type B (PCR) NEGATIVE (Negative) RSV RNA Qual (PCR) NEGATIVE (Negative) SARS-CoV-2 RNA (RT-PCR) NEGATIVE (Negative) Independent Interpretation I performed an independent interpretation of an: EKG and CT Scan (likey enteritis given hx) Interpretation: Rate: 50 Rhythm: sinus bradycardia [place]: left Normal P waves. Normal OTIS. Normal QRS complex. ST T wave : inverted t wave V1, no KVNG qTC: 412 prior studies: The study has been interpreted contemporaneously by me. . CTA no stroke or occlusion Radiology Impression Discussion of test interpretation with radiology: I have reviewed the radiologist's reading. Independent Historian Clinical information obtained from an independent historian. History obtained from or confirmed by: EMS and Other (daughter) External Record Review External record reviewed: Inpatient record Discharge Plan Discharge Clinical Impression: Intractable nausea and vomiting, Dizziness Abdominal pain Qualifiers: Abdominal location: generalized Qualified Code(s): R10.84 - Generalized abdominal pain Patient Disposition: Admitted As Inpatient Print Language: Argentine
[2023-10-21] MEDS: diphenhydrAMINE HCL 50 MG/ML VIAL 25 MG IVPUSH (10:25)
[2023-10-21] MEDS: Metoclopramide HCl 10 MG/2 ML VIAL IVPUSH (10:25)
[2023-10-21 10:27] LABS: MANUAL DIFF FLAG NO
[2023-10-21 10:28] LABS: Basophils Absolute Auto 0.1 X10*3/uL (0.0-0.2); Basophils Percent Auto 0.5 % (0-2); Eosinophils Percent Auto 0.2 % (0-4); Hematocrit 37.1 % (37.0-47.0); Hemoglobin 12.3 g/dl (12.0-16.0); Imm Gran Pct Auto 0.8 % (0.0-0.4); Lymphocytes Absolute Auto 1.8 X10*3/uL (1.2-4.9); Lymphocytes Percent Auto 14.3 % (20-40); Mean Corpuscular HGB Conc 33.2 g/dl (31.0-35.0); Mean Corpuscular Hemoglobin 28.9 pg (27.0-33.0); Mean Corpuscular Volume 87.3 fL (80.0-98.0); Monocytes Absolute Auto 0.2 X10*3/uL (0.1-1.2); Monocytes Percent Auto 1.7 % (2-11); Neutrophils Absolute Auto 10.4 x10*3/uL (2.0-8.3); Neutrophils Percent Auto 82.5 % (45-73); Platelet Count 248 X10*3/uL (160-400); Red Blood Count 4.25 X10*6/uL (4.20-5.50); Red Cell Distribution Width 13.2 % (11.0-16.0); White Blood Count 12.6 X10*3/uL (4.8-10.8)
[2023-10-21] MEDS: Lactated Ringers 1,000 ML 999 ML IV ×2 (10:45→10:46)
[2023-10-21 10:47] LABS: Alanine Aminotransferase 18 U/L (0-31); Albumin Level 3.9 g/dL (3.5-5.0); Alkaline Phosphatase 68 U/L (39-117); Anion Gap 17 (12-20); Aspartate Amino Transferase 17 U/L (5-31); Bilirubin Total 0.5 mg/dL (0.0-1.0); Blood Urea Nitrogen 25 mg/dL (9-16); Calcium 7.4 mg/dL (8.4-10.2); Carbon Dioxide 18 mmol/L (22-29); Chloride 111 mmol/L (96-108); Creatinine Clr Calc Pharmacy 46.7; Estimated Glomerular Filt Rate 46; Glucose Random 114 mg/dL (60-115); Lipase 38 U/L (8-78); Potassium 3.7 mmol/L (3.3-5.1); Sodium 142 mmol/L (135-145); Total Protein 7.5 g/dL (6.5-8.0)
[2023-10-21 11:08] LABS: Influenza A PCR NEGATIVE (Negative); Influenza B PCR NEGATIVE (Negative); Resp Syncy Virus RNA Qual PCR NEGATIVE (Negative); SARS COV2 PCR INHOUSE NEGATIVE (Negative)
[2023-10-21] MEDS: Meclizine HCl 25 MG TABLET PO ×3 (12:45→21:27)
--- NOTE | 2023-10-21 13:34 | PM.CNGS ---
History of Present Illness Consult details Consult date: 10/21/23 Narrative: Patient is a 58-year-old female with a plethora of comorbidities who was recently seen because of abdominal pain and diarrhea who represents with similar complaints of epigastric /upper abdominal pain with profuse diarrhea. Patient denies any sick contacts. She has not had unusual diet. She does not had a recent foreign travel. She has no new meds. Chart was reviewed and patient evaluated. W BC count 12.6. As noted above several intercurrent medical problems. Patient has a longstanding history of irritable bowel syndrome with both diarrhea and constipation. [facility] Past Medical History Medical History Transaminitis History of Graves' disease Pilonidal cyst Substance abuse [place] (obstructive sleep apnea) Nicotine dependence, cigarettes, uncomplicated History of abnormal mammogram Hidradenitis suppurativa Hyperlipidemia Hypertension Family History Family History Paternal Aunt Breast cancer Mother Cancer of mandible Other [place] (obstructive sleep apnea) Surgical History Surgical History Hx of cataract surgery History of colonoscopy (~2013) History of bunionectomy (~2011) History of axillary surgery (~2013) History of cholecystectomy History of umbilical hernia repair (~2017) Social History Social History Alcohol intake: current Alcohol intake frequency: does not drink Patient Tobacco Use Status: Current everyday Tobacco user Cigarette Packs Per Day: 0.75 Cigarettes Per Day: 15 Years Smoked: 36 (onset age 19) Smoked in Last 30 Days: No Use of substances other than those prescribed or required for medical reasons: No Substance Use Type: Crack/Cocaine Advance Directives: No Advance Directives Information Provided: Yes Patient : No Current occupational status: unemployed Meds Allergies Allergy/AdvReac Type Severity Reaction Status Date / Time sulfamethoxazole Allergy Severe Itching Verified 10/21/23 10:06 [From Bactrim] trimethoprim [From Bactrim] Allergy Severe Itching Verified 10/21/23 10:06 codeine [Codeine] Allergy Intermediate NAUSEA & Verified 10/21/23 10:06 VOMITING, vomiting fluoxetine [FLUOXETINE] Allergy Intermediate NAUSEA & Verified 10/21/23 10:06 VOMITING ibuprofen [IBUPROFEN] Allergy Intermediate NAUSEA & Verified 10/21/23 10:06 VOMITING Sulfa (Sulfonamide Allergy Mild itching Verified 10/21/23 10:06 Antibiotics) Home Medications ?Medication ?Instructions ?Recorded ?Confirmed ?Last Taken ?Type alcohol swabs 1 pad topical QID 09/22/20 09/25/20 Unknown History aspirin 81 mg tablet,delayed 81 mg PO QAM 09/22/20 07/19/23 Unknown History release blood sugar diagnostic #10 ea 09/22/20 09/22/20 Unknown History cholecalciferol (vitamin D3) 25 50 mcg PO QAM 09/22/20 07/19/23 Unknown History mcg (1,000 unit) tablet clonidine HCl 0.2 mg tablet 0.2 mg PO BEDTIME 09/22/20 07/19/23 Unknown History diltiazem HCl 360 mg capsule,24 360 mg PO QAM 09/22/20 07/19/23 Unknown History hr,extended release dulaglutide 0.75 mg/0.5 mL 1.5 mg subcut QWEEK 09/22/20 07/19/23 07/12/23 History subcutaneous pen injector fluticasone propionate 50 1 spray intranasal DAILY 09/22/20 07/19/23 Unknown History mcg/actuation nasal spray,suspension hydrochlorothiazide 25 mg tablet 25 mg PO QAM 09/22/20 07/19/23 Unknown History lancets 33 gauge #100 ea 09/22/20 09/22/20 Unknown History lisinopril 40 mg tablet 40 mg PO QAM 09/22/20 07/19/23 Unknown History montelukast 10 mg tablet 10 mg PO QPM 09/22/20 07/19/23 Unknown History pravastatin 80 mg tablet 80 mg PO BEDTIME 09/22/20 07/19/23 Unknown History tiotropium bromide 18 mcg capsule 1 cap inhalation DAILY 09/22/20 07/19/23 Unknown History with inhalation device magnesium oxide 400 mg (241.3 mg 400 mg PO 10/12/22 Unknown History magnesium) tablet fluticasone 250 mcg-salmeterol 50 1 ea inhalation BID 04/12/23 07/19/23 Unknown History mcg/dose blistr powdr for inhalation metformin 500 mg tablet,extended 1,000 mg PO BID 04/12/23 07/19/23 Unknown History release 24 hr levothyroxine 125 mcg tablet 125 mcg PO QAM 07/19/23 07/19/23 Unknown History Physical Exam Vital Signs: Vital Signs: Last Vital Signs Temp 97.9 F 10/21/23 10:02 Pulse 64 10/21/23 10:02 Resp 16 10/21/23 10:02 BP 129/58 L 10/21/23 10:02 Pulse Ox 98 10/21/23 10:02 O2 Del Method Room Air 10/21/23 10:02 BMI result Body Mass Index 25.2 GI: Other: Abdomen very soft, moderately corpulent. Very mild epigastric tenderness but no evidence of any guarding, rebound, or rigidity. Results Labs 10/21/23 10:23 10/21/23 10:23 Labs: Abnormal lab results 10/21/23 Range/Units 10:23 WBC 12.6 H (4.8-10.8) X10*3/uL Immature Gran % (Auto) 0.8 H (0.0-0.4) % Neut % (Auto) 82.5 H (45-73) % Lymph % (Auto) 14.3 L (20-40) % [place] % (Auto) 1.7 L (2-11) % Abs Immat Gran (auto) 0.10 H (0.00-0.03) X10*3/uL Absolute Neuts (auto) 10.4 H (2.0-8.3) x10*3/uL Chloride 111 H (96-108) mmol/L Carbon Dioxide 18 L (22-29) mmol/L BUN 25 H (9-16) mg/dL Calcium 7.4 L D (8.4-10.2) mg/dL Short CBC 10/21/23 Range/Units 10:23 WBC 12.6 H (4.8-10.8) X10*3/uL Hgb 12.3 (12.0-16.0) g/dl Hct 37.1 (37.0-47.0) % Plt Count 248 (160-400) X10*3/uL BMP 10/21/23 10:23 Sodium 142 Potassium 3.7 D Chloride 111 H Carbon Dioxide 18 L BUN 25 H Creatinine 1.20 Calcium 7.4 L D Cardiac Enzymes 10/21/23 Range/Units 10:23 Total Creatine Kinase 75 (26-140) U/L Liver Function 10/21/23 Range/Units 10:23 Total Bilirubin 0.5 (0.0-1.0) mg/dL AST 17 (5-31) U/L ALT 18 (0-31) U/L Alkaline Phosphatase 68 (39-117) U/L Albumin 3.9 (3.5-5.0) g/dL All other labs normal. Assessment and Plan (1) Intractable nausea and vomiting: Status: Acute (2) Abdominal pain: Qualifiers: Abdominal location: generalized Qualified Code(s): R10.84 - Generalized abdominal pain Status: Acute Plan Patient's history of profound/profuse diarrhea along with exam and CT scan findings more consistent with gastroenteritis/food poisoning/GI bug or possibly a significant irritable bowel syndrome episode.. At present, no acute surgical issues. Patient was being admitted for restorative measures. We will follow up p.r.n.. Procedures Date of Service Date of Service: 10/21/23
[2023-10-21 14:51] LABS: CDiff Gene PCR NEGATIVE (Negative)
[2023-10-21] MEDS: iohexoL 350 MG/ML 100 ML INFUS..BTL 70 ML IV (14:54)
[2023-10-21] MEDS: iohexoL 350 MG/ML 100 ML INFUS..BTL IV (14:55)
[2023-10-21 15:12] LABS: Adenovirus F 40/41 Not Detected (Not Detect.); Astrovirus Not Detected (Not Detect.); Campylobacter Not Detected (Not Detect.); Cryptosporidium Not Detected (Not Detect.); Cyclospora cayetanensis Not Detected (Not Detect.); E. coli EAEC Not Detected (Not Detect.); E. coli EPEC Not Detected (Not Detect.); E. coli ETEC Not Detected (Not Detect.); E. coli STEC Not Detected (Not Detect.); Entamoeba histolytica Not Detected (Not Detect.); Giardia lamblia Not Detected (Not Detect.); Norovirus GI/GII Not Detected (Not Detect.); Plesiomonas shigelloides Not Detected (Not Detect.); Rotavirus A Not Detected (Not Detect.); Salmonella Not Detected (Not Detect.); Sapovirus Not Detected (Not Detect.); Shigella sp./EIEC Not Detected (Not Detect.); Vibrio Not Detected (Not Detect.); Vibrio Cholerae Not Detected (Not Detect.); Yersinia enterocolitica Not Detected (Not Detect.)
--- NOTE | 2023-10-21 15:30 | ECG_ITS ---
Test Reason : DIZZINESS Blood Pressure : / mmHG Vent. Rate : 050 BPM Atrial Rate : 050 BPM P-R Int : 136 ms QRS Dur : 096 ms QT Int : 452 ms P-R-T Axes : 058 -14 021 degrees QTc Int : 412 ms Sinus bradycardia Otherwise normal ECG When compared with ECG of 27-DEC-2016 15:18, Vent. rate has decreased BY 24 BPM Nonspecific T wave abnormality, improved in Anterolateral leads Referred By: Lucie Oliva Electronically Signed By:ALEX JEAN
[2023-10-21] MEDS: LORazepam 2 MG/ML VIAL 1 MG IVPUSH (15:47)
--- NOTE | 2023-10-21 15:48 | PC.NURSE ---
took over pt care at 1500, pt a&ox3, vss, pt c/o 5-10 pain, rr equal/non labored, pt medicated per order, call harrison within reach, will continue with plan of care
--- NOTE | 2023-10-21 16:17 | PM.IMHP ---
History of Present Illness Date of Service: 10/21/23 Attending physician on admission: Candida Macias Chief Complaint: Dizziness, abd pain, N/V/D Pt is a 58-year-old Albanian-speaking female with a PMH significant for HTN, HLD, vbr-yuzigqo-ehmldmdlz type 2 diabetes, IBS, exocrine pancreatic insufficiency, and hypothyroidism?who presents to the ED with?multiple complaints including nausea, vomiting, diarrhea, abdominal pain, and dizziness. Patient was previously seen in the ED 4 days prior for similar complaints as well as right leg pain. DVT studies were negative at that time. Labs showed elevated potassium of 5.6 and elevated creatinine of 2.79 (up from 1.40). Patient received 2 L IVF but did now want to wait for repeat labs before going home. Pt states did well until this morning when she was outside sitting on her balcony smoking a cigarette and suddenly experienced dizziness that was so severe she was unable to stand or move and had to call for EMS to bring her to the hospital. Experiences dizziness at rest, though worsened with head movement or with standing. Patient is not a great historian and unable to clarify whether she lightheaded when like the room spinning. Also complains of some nausea, vomiting, diarrhea, and mild abdominal pain. Reports he has not been eating or drinking normally for the past few days. It is also felt overall weak. Denies experiencing vertigo in the past. No chest pain/pressure, palpitations. Denies fever, chills. In the ED pt was hypertensive up to 160/66. Labs were significant for leukocytosis of 12.6 (down from previous of 13.2 on 10/17/2023), otherwise grossly unremarkable and around baseline for patient. Stable H& H. No significant electrolyte abnormalities. Renal function back to baseline. Hepatic function WNL. Stool studies and C diff negative. CT of abdomen and pelvis found multiple fluid-filled thick-walled loops of jejunum, likely enteritis though internal hernia can not be ruled out. CT of head showed no acute intracranial hemorrhage or edematous territorial infarction. CTA of head showed no large vessel occlusion, saccular aneurysm, dissection, or high-grade stenosis intracranially. CTA of neck found no hemodynamically significant stenosis in the major arteries of the neck. EKG demonstrated sinus bradycardia of 50 without evidence of significant ST elevations or depressions. Pt was treated with metoclopramide, diphenhydramine, IVF, meclizine, and lorazepam. Pt will be admitted to the hospital for treatment and further evaluation of intractable dizziness and inability to ambulate, and intractable nausea and vomiting in the setting likely enteritis. Review of Systems Review of Systems: Dizziness Weakness Unable to ambulate Nausea, vomiting, diarrhea, abdominal pain No chest pain/pressure, palpitations Denies fever chills PMFSH Medical History Transaminitis History of Graves' disease Pilonidal cyst Substance abuse [place] (obstructive sleep apnea) Nicotine dependence, cigarettes, uncomplicated History of abnormal mammogram Hidradenitis suppurativa Hyperlipidemia Hypertension Family History Paternal Aunt Breast cancer Mother Cancer of mandible Other [place] (obstructive sleep apnea) Surgical History Hx of cataract surgery History of colonoscopy (~2013) History of bunionectomy (~2011) History of axillary surgery (~2013) History of cholecystectomy History of umbilical hernia repair (~2016) Social History Alcohol intake: current Alcohol intake frequency: does not drink Patient Tobacco Use Status: Current everyday Tobacco user Cigarette Packs Per Day: 0.75 Cigarettes Per Day: 15 Years Smoked: 36 (onset age 19) Smoked in Last 30 Days: No Use of substances other than those prescribed or required for medical reasons: No Substance Use Type: Crack/Cocaine Advance Directives: No Advance Directives Information Provided: Yes Patient : No Current occupational status: unemployed Meds Allergies Allergy/AdvReac Type Severity Reaction Status Date / Time sulfamethoxazole Allergy Severe Itching Verified 10/21/23 10:06 [From Bactrim] trimethoprim [From Bactrim] Allergy Severe Itching Verified 10/21/23 10:06 codeine [Codeine] Allergy Intermediate NAUSEA & Verified 10/21/23 10:06 VOMITING, vomiting fluoxetine [FLUOXETINE] Allergy Intermediate NAUSEA & Verified 10/21/23 10:06 VOMITING ibuprofen [IBUPROFEN] Allergy Intermediate NAUSEA & Verified 10/21/23 10:06 VOMITING Sulfa (Sulfonamide Allergy Mild itching Verified 10/21/23 10:06 Antibiotics) Home Medications ?Medication ?Instructions ?Recorded ?Confirmed ?Last Taken ?Type aspirin 81 mg tablet,delayed 81 mg PO DAILY 09/22/20 10/21/23 10/20/23 History release blood sugar diagnostic #10 ea 09/22/20 09/22/20 Unknown History cholecalciferol (vitamin D3) 25 50 mcg PO DAILY 09/22/20 10/21/23 10/20/23 History mcg (1,000 unit) tablet clonidine HCl 0.2 mg tablet 0.2 mg PO BEDTIME 09/22/20 10/21/23 10/20/23 History diltiazem HCl 360 mg capsule,24 360 mg PO DAILY 09/22/20 10/21/23 10/20/23 History hr,extended release dulaglutide 0.75 mg/0.5 mL 0.75 mg subcut QWEEK 09/22/20 10/21/23 07/12/23 History subcutaneous pen injector hydrochlorothiazide 25 mg tablet 25 mg PO DAILY 09/22/20 10/21/23 10/20/23 History lancets 33 gauge #100 ea 09/22/20 09/22/20 Unknown History lisinopril 40 mg tablet 40 mg PO DAILY 09/22/20 10/21/23 10/20/23 History montelukast 10 mg tablet 10 mg PO BEDTIME 09/22/20 10/21/23 10/20/23 History pravastatin 80 mg tablet 80 mg PO BEDTIME 09/22/20 10/21/23 10/20/23 History tiotropium bromide 18 mcg capsule 1 cap inhalation DAILY 09/22/20 10/21/23 10/20/23 History with inhalation device magnesium oxide 400 mg (241.3 mg 400 mg PO BID 10/12/22 10/21/23 10/20/23 History magnesium) tablet fluticasone 250 mcg-salmeterol 50 1 ea inhalation BID 04/12/23 10/21/23 10/20/23 History mcg/dose blistr powdr for inhalation metformin 500 mg tablet,extended 1,000 mg PO BID 04/12/23 10/21/23 10/20/23 History release 24 hr levothyroxine 125 mcg tablet 125 mcg PO DAILY@0600 07/19/23 10/21/23 10/20/23 History spironolactone 25 mg tablet 25 mg PO DAILY 10/21/23 10/21/23 10/20/23 History Physical Exam Vital Signs and Narrative: Vital Signs: Last Vital Signs Temp 97 F 10/21/23 14:36 Pulse 53 10/21/23 14:36 Resp 16 10/21/23 14:36 BP 160/66 H 10/21/23 14:36 Pulse Ox 98 10/21/23 14:36 O2 Del Method Room Air 10/21/23 14:36 BMI result Body Mass Index 25.2 Constitutional: Alert, in no acute distress. Mental Status: Oriented to person, place and time. Eyes: Pupils are equal, round, and reactive to light. Ear, Nose, and Throat: Oropharynx clear, mucous membranes moist. Ears and nose without deformities. Trachea midline. Respiratory: Clear to auscultation bilaterally. No wheezing, rales, or rhonchi. Cardiovascular: S1, S2 regular. No murmurs, rubs, or gallops. Gastrointestinal: Abdomen soft, non-distended, with mild suprapubic tenderness. Normal bowel sounds. Neurologic: Cranial nerves II-XII are grossly intact bilaterally. No focal neurological deficits. Moves all extremities spontaneously though with global weakness. Mild horizontal nystagmus. Skin: Warm, dry. Extremities: No edema. Psychiatric: Normal mood and affect. Results Labs 10/21/23 10:23 10/21/23 10:23 Labs: Laboratory Results - last 24 hr 10/21/23 10/21/23 10:23 13:39 MCV 87.3 MCH 28.9 MCHC 33.2 RDW 13.2 Plt Count 248 MPV 11.0 Immature Gran % (Auto) 0.8 H Neut % (Auto) 82.5 H Lymph % (Auto) 14.3 L [place] % (Auto) 1.7 L Eos % (Auto) 0.2 Baso % (Auto) 0.5 Lymph # (Auto) 1.8 [place] # (Auto) 0.2 Eos # (Auto) 0.0 Baso # (Auto) 0.1 Abs Immat Gran (auto) 0.10 H Absolute Neuts (auto) 10.4 H Absolute Nucleated RBC 0.000 Nucleated RBC % (auto) 0.0 Anion Gap 17 Estim Creat Clear Calc 46.7 Estimated GFR 46 Random Glucose 114 Calcium 7.4 L D Total Bilirubin 0.5 AST 17 ALT 18 Alkaline Phosphatase 68 Total Creatine Kinase 75 Total Protein 7.5 Albumin 3.9 Lipase 38 Stl C. cayetanensis PCR Not Detected Stool Rotavirus A PCR Not Detected Stl Adenov F 40/41 PCR Not Detected Stool Astrovirus (PCR) Not Detected Stool Campylobacter PCR Not Detected Stool Cryptosporidium PCR Not Detected Stl Sh Tox Pr E STEC PCR Not Detected Stool E coli O157 PCR Not applicable Stl Enterotoxigenic E PCR Not Detected Stool EPEC (PCR) Not Detected Stool EAEC (PCR) Not Detected Stl E. histolytica PCR Not Detected Stool Giardia Lamblia PCR Not Detected Stl P. shigelloides PCR Not Detected Stool Salmonella PCR Not Detected Stool Sapovirus (PCR) Not Detected Stl Shigella/EIEC PCR Not Detected St Y.enterocolitica PCR Not Detected Stool Vibrio (PCR) Not Detected Stl Vibrio cholerae PCR Not Detected Stl Norovirus GI/GII PCR Not Detected C. difficile Tox B Gene NEGATIVE Influenza Type A (PCR) NEGATIVE Influenza Type B (PCR) NEGATIVE RSV RNA Qual (PCR) NEGATIVE SARS-CoV-2 RNA (RT-PCR) NEGATIVE Imaging Radiologist's Impressions: Impressions Abdomen/Pelvis CT 10/21/23 10:19 IMPRESSION: 1. Multiple fluid-filled thick-walled loops of jejunum in the left upper quadrant with perienteric inflammatory fat stranding and trace intermesenteric loops with fluid measuring borderline dilated to 2.8 cm, which appear somewhat clustered and morphology. Differential considerations could include infectious/inflammatory enteritis, however given the somewhat clustered appearance of the loops of jejunum in the left upper quadrant, it raises the suspicion for a potential internal hernia. Recommend surgical evaluation. 2. There are 2 microscopic fat-containing lesions associated with the left ovary measuring 1.9 and 1.6 cm which could potentially reflect ovarian dermoids versus insinuation of the adjacent pelvic fat amongst surrounding adnexal vessels, recommend correlation with pelvic ultrasound. 3. Again seen is a chronic fluid collection extending from the umbilicus and to the ventral mesentery measuring approximately 2.3 cmwhich may reflect a chronic seroma. 4. Nonobstructing right renal stones measuring up to 3 mm new from prior. No hydronephrosis. 5. Liver is enlarged measuring 18.9 cm in span, decreased from prior. Electronically signed by: Juana Lopez MD 10/21/2023 11:45 AM EDT RP Head/Neck CTA 10/21/23 14:11 IMPRESSION: 1. No acute intracranial hemorrhage or edematous territorial infarction. 2. No large vessel occlusion, saccular aneurysm, dissection or high-grade stenosis within the intracranial circulation. 3. No hemodynamically significant stenosis in the major arteries of the neck. Electronically signed by: Roseann Juan MD 10/21/2023 03:18 PM EDT RP Assessment and Plan (1) Dizziness: Status: Acute (2) Enteritis: Status: Acute Plan Pt is a 58-year-old Albanian-speaking female with a PMH significant for HTN, HLD, COPD, ckt-avypazq-wynlmnpie type 2 diabetes, IBS, exocrine pancreatic insufficiency, and hypothyroidism?who presents to the ED with?multiple complaints including nausea, vomiting, diarrhea, abdominal pain, and dizziness. Pt will be admitted to the hospital for treatment and further evaluation of intractable dizziness and inability to ambulate, and intractable nausea and vomiting in the setting likely enteritis. Enteritis Pt with N/V/D and lower abd pain x4-[address] of abd/pelvis showing multiple fluid-filled thick-walled loops of jejunum concerning for enteritis versus internal hernia GI panel and C diff negative Antiemetics, Imodium, analgesics Diet as tolerated General surgery consult Dizziness Pt with sudden dizziness while seated this morning, worse with head movement and position change Physical exam reveals mild horizontal nystagmus Will treat with meclizine 25 mg t.i.d. Neurology consult PT consult for possible Kostas maneuver Check orthostatics Bradycardia Pulse noted to be 44 Patient asymptomatic Will hold diltiazem Will monitor on telemetry Consider cardiology consult if persistent or patient becomes symptomatic Generalized weakness In the setting of above PT consult COPD Not in acute exacerbation Continue home inhalers HTN Continue hydrochlorothiazide, lisinopril, spironolactone Hold diltiazem HLD Continue statin Acz-bcehvvn-wtnhpbwni type 2 diabetes Hold metformin Sliding-scale insulin, diabetic diet GERD PPI Mood disorder Continue home mood stabilizers Full Code Attending:?Dr. Macias DVT Prophylaxis: Lovenox Given that patient has significant comorbidities and is at significant risk of decline, as well as unable to ambulate or handle p.o., pt will require a hospitalization of at least two nights for treatment of?enteritis and intractable dizziness. Quality Stroke Does the patient have a stroke diagnosis?: No VTE Prior VTE?: No VTE Risk Level:: Medical - moderate - high VTE Device Contraindication: Treatment Not Indicated VTE Drug Contraindication: N/A - Med Ordered
--- NOTE | 2023-10-21 17:12 | PC.NURSE ---
pt HR upon vitals is noted to be 44-45, Dr. Macias was notified via tiger text.
[2023-10-21 17:16] LABS: Appearance Urine Clear; Color Urine Yellow; Glucose Urine UA Negative (Negative); Leukocyte Esterase Urine Negative (Negative); Nitrite Urine Negative (Negative); Specific Gravity - Urine >= 1.030 (1.005-1.025); Urine Blood Negative (Negative); Urine Ketones Trace mg/dL (Negative); Urine Protein Negative (Neg-Trace)
--- NOTE | 2023-10-21 17:22 | PC.NURSE ---
pt placed on radiation monitor due to hr
--- NOTE | 2023-10-21 17:42 | PHA.MEDREC ---
Pharmacy Consult ? Medication Reconciliation Pharmacy has completed the medication reconciliation. Spoke to daughter to confirm meds.
[2023-10-21] MEDS: Lactated Ringers 1,000 ML 80 ML IVCONT (17:52)
[2023-10-21] MEDS: Enoxaparin Sodium 40 MG/0.4 ML SYRINGE SUBCUT (17:52)
--- NOTE | 2023-10-21 17:54 | PC.NURSE ---
ivf running per order, pt medicated per order, call harrison within reach, will continue to monitor
[2023-10-21 18:03] LABS: Free T4 (Free Thyroxine) 1.28 ng/dL (0.71-1.85)
[2023-10-21 18:39] LABS: Glucose, Whole Blood 104 mg/dL (60-115)
--- NOTE | 2023-10-21 19:13 | PC.NURSE ---
Received report from Iza FARRAR, assume care of pt at this time
--- NOTE | 2023-10-21 19:50 | PC.NURSE ---
resting quietly on bed at this time, no s/s of acute distress, waiting on admit bed
--- NOTE | 2023-10-21 20:25 | PC.NURSE ---
pt's daughter called, and per pt's permission, update given
[2023-10-21 21:04] LABS: Glucose, Whole Blood 109 mg/dL (60-115)
[2023-10-21] MEDS: cloNIDine HCL 0.2 MG TABLET PO (21:26)
[2023-10-21] MEDS: Magnesium Oxide 400 MG TABLET PO (21:27)
[2023-10-21] MEDS: Montelukast Sodium 10 MG TABLET PO (21:27)
[2023-10-21] MEDS: Pravastatin Sodium 80 MG TABLET PO (21:48)
[2023-10-22] VITALS (8 sets, daily range): BP systolic 125–157; BP diastolic 68–86; PULSE 60–85; RESP 12–22; TEMP 36.3–36.8; O2SAT 98–100
--- NOTE | 2023-10-22 02:18 | PC.NURSE ---
pt resting quietly on stretcher at this time, resp with ease, no s/s of acute distress,
[2023-10-22] MEDS: Lactated Ringers 1,000 ML 80 ML IVCONT ×2 (04:48→17:23)
[2023-10-22 05:20] LABS: Anion Gap 15 (12-20); Blood Urea Nitrogen 18 mg/dL (9-16); Calcium 7.5 mg/dL (8.4-10.2); Carbon Dioxide 22 mmol/L (22-29); Chloride 110 mmol/L (96-108); Creatinine Clr Calc Pharmacy 58.3; Estimated Glomerular Filt Rate 59; Glucose Random 91 mg/dL (60-115); Potassium 3.1 mmol/L (3.3-5.1); Sodium 144 mmol/L (135-145)
[2023-10-22] MEDS: Omeprazole 20 MG CAPSULE.DR PO ×2 (06:16→17:15)
--- NOTE | 2023-10-22 07:02 | PC.NURSE ---
report given to Karine FARRAR
[2023-10-22 07:39] LABS: Glucose, Whole Blood 120 mg/dL (60-115)
[2023-10-22] MEDS: Potassium Chloride ER 20 MEQ TAB.ER.PRT 40 MEQ PO (09:23)
[2023-10-22] MEDS: hydroCHLOROthiazide 25 MG TABLET PO (09:26)
[2023-10-22] MEDS: Levothyroxine Sodium 125 MCG TABLET PO (09:26)
[2023-10-22] MEDS: lisinopriL 40 MG TABLET PO (09:28)
[2023-10-22] MEDS: Spironolactone 25 MG TABLET PO (09:28)
[2023-10-22] MEDS: Meclizine HCl 25 MG TABLET PO ×3 (09:29→21:28)
[2023-10-22] MEDS: Aspirin Enteric Coated 81 MG TABLET.DR PO (09:29)
[2023-10-22] MEDS: Gabapentin 100 MG CAPSULE PO ×3 (09:30→21:28)
[2023-10-22] MEDS: Magnesium Oxide 400 MG TABLET PO ×2 (09:30→21:28)
[2023-10-22] MEDS: Cholecalciferol (Vitamin D3) 25 MCG TABLET 50 MCG PO (09:39)
[2023-10-22 10:33] LABS: Anion Gap 13 (12-20); Blood Urea Nitrogen 18 mg/dL (9-16); Calcium 7.2 mg/dL (8.4-10.2); Carbon Dioxide 21 mmol/L (22-29); Chloride 113 mmol/L (96-108); Creatinine Clr Calc Pharmacy 54.3; Estimated Glomerular Filt Rate 55; Glucose Random 96 mg/dL (60-115); Potassium 3.2 mmol/L (3.3-5.1); Sodium 144 mmol/L (135-145)
--- NOTE | 2023-10-22 10:35 | P.CNNE_ITS ---
History of Present Illness Data of Consult Service Date: 10/22/23 Primary Care Provider: Yeni Willoughby MD [facility] Reason for consult: Dizziness 58-year-old Lao-speaking female with a PMH significant for HTN, HLD, [id number] type 2 diabetes, IBS, exocrine pancreatic insufficiency, and hypothyroidism?who presents to the ED with?multiple complaints including nausea, vomiting, diarrhea, abdominal pain, and dizziness. There was no complaint of seizure-like episode or focal weakness or speech or language difficulty. Review of Systems 2 Review of Systems: As in HPI [facility] Past Medical History Medical History Transaminitis History of Graves' disease Pilonidal cyst Substance abuse [place] (obstructive sleep apnea) Nicotine dependence, cigarettes, uncomplicated History of abnormal mammogram Hidradenitis suppurativa Hyperlipidemia Hypertension Family History Family History Paternal Aunt Breast cancer Mother Cancer of mandible Other [place] (obstructive sleep apnea) Surgical History Surgical History Hx of cataract surgery History of colonoscopy (~2013) History of bunionectomy (~2011) History of axillary surgery (~2013) History of cholecystectomy History of umbilical hernia repair (~2016) Social History Social History Alcohol intake: current Alcohol intake frequency: does not drink Patient Tobacco Use Status: Current everyday Tobacco user Cigarette Packs Per Day: 0.75 Cigarettes Per Day: 15 Years Smoked: 36 (onset age 19) Smoked in Last 30 Days: No Use of substances other than those prescribed or required for medical reasons: No Substance Use Type: Crack/Cocaine Advance Directives: No Advance Directives Information Provided: Yes Do you have a plan to hurt others: No Plan Patient : No Current occupational status: unemployed Meds Allergies Allergy/AdvReac Type Severity Reaction Status Date / Time sulfamethoxazole Allergy Severe Itching Verified 10/21/23 10:06 [From Bactrim] trimethoprim [From Bactrim] Allergy Severe Itching Verified 10/21/23 10:06 codeine [Codeine] Allergy Intermediate NAUSEA & Verified 10/21/23 10:06 VOMITING, vomiting fluoxetine [FLUOXETINE] Allergy Intermediate NAUSEA & Verified 10/21/23 10:06 VOMITING ibuprofen [IBUPROFEN] Allergy Intermediate NAUSEA & Verified 10/21/23 10:06 VOMITING Sulfa (Sulfonamide Allergy Mild itching Verified 10/21/23 10:06 Antibiotics) Active Medications: Current Medications Acetaminophen (Acetaminophen 325 Mg Tablet) 650 mg PO Q6H PRN PRN Reason: Pain, Mild (Pain Scale 1-3), fever or headache Aspirin (Aspirin Enteric Coated 81 Mg Tablet.Dr) 81 mg PO DAILY [facility] Last Admin: 10/22/23 09:29 Dose: 81 mg Benzonatate (Benzonatate 100 Mg Capsule) 100 mg PO TID PRN PRN Reason: Cough Calcium Carbonate (Calcium Carbonate 750 Mg Tab.Chew) 750 mg PO Q4H PRN PRN Reason: Heartburn Clonidine HCl (Clonidine Hcl 0.2 Mg Tablet) 0.2 mg PO BEDTIME [facility]; Protocol Last Admin: 10/21/23 21:26 Dose: 0.2 mg Enoxaparin Sodium (Enoxaparin Sodium 40 Mg/0.4 Ml Syringe) 40 mg SUBCUT Q24H [facility] Last Admin: 10/21/23 17:52 Dose: 40 mg Gabapentin (Gabapentin 100 Mg Capsule) 100 mg PO TID [facility] Last Admin: 10/22/23 09:30 Dose: 100 mg Glucose (Glucose Gel 15 Gm Gel..Gram.) 15 gm PO Q15M PRN; Protocol PRN Reason: per Hypoglycemia Standing Ord. Hydrochlorothiazide (Hydrochlorothiazide 25 Mg Tablet) 25 mg PO DAILY [facility]; Protocol Last Admin: 10/22/23 09:26 Dose: 25 mg Lactated Ringer's (Lr) 1,000 mls @ 80 mls/hr IVCONT .[id number] [facility] Last Admin: 10/22/23 04:48 Dose: 80 mls/hr Dextrose (D10) 250 mls @ 750 mls/hr IV Q15M PRN; Protocol PRN Reason: per Hypoglycemia Standing Ord. Insulin Human Lispro (Insulin Lispro 100 Unit/Ml 3 Ml Vial) 0 unit SUBCUT QIDACHS [facility]; Protocol Last Admin: 10/22/23 08:17 Dose: Not Given Levothyroxine Sodium (Levothyroxine Sodium 125 Mcg Tablet) 125 mcg PO DAILY@0600 [facility] Last Admin: 10/22/23 09:26 Dose: 125 mcg Lisinopril (Lisinopril 40 Mg Tablet) 40 mg PO DAILY [facility]; Protocol Last Admin: 10/22/23 09:28 Dose: 40 mg Loperamide HCl (Loperamide Hcl 2 Mg Capsule) 2 mg PO Q6H PRN PRN Reason: Diarrhea Magnesium Hydroxide (Milk Of Magnesia 30 Ml Oral.Susp) 30 ml PO DAILY PRN PRN Reason: Constipation Magnesium Oxide (Magnesium Oxide 400 Mg Tablet) 400 mg PO BID [facility] Last Admin: 10/22/23 09:30 Dose: 400 mg Meclizine HCl (Meclizine Hcl 25 Mg Tablet) 25 mg PO TID [facility] Last Admin: 10/22/23 09:29 Dose: 25 mg Melatonin (Melatonin 3 Mg Tablet) 6 mg PO BEDTIME PRN PRN Reason: Insomnia Montelukast Sodium (Montelukast Sodium 10 Mg Tablet) 10 mg PO BEDTIME [facility] Last Admin: 10/21/23 21:27 Dose: 10 mg Omeprazole (Omeprazole 20 Mg Capsule.Dr) 20 mg PO BID@0630,1630 [facility] Last Admin: 10/22/23 06:16 Dose: 20 mg Ondansetron HCl (Ondansetron Hcl 4 Mg/2 Ml Vial) 4 mg IVPUSH Q8H PRN PRN Reason: Nausea and Vomiting Pravastatin Sodium (Pravastatin Sodium 80 Mg Tablet) 80 mg PO BEDTIME [facility] Last Admin: 10/21/23 21:48 Dose: 80 mg Sodium Chloride (0.9 % Sodium Chloride Flush 3 Ml Syringe) [facility] Admin: 10/22/23 09:30 Dose: Not Given Spironolactone (Spironolactone 25 Mg Tablet) 25 mg PO DAILY [facility]; Protocol Last Admin: 10/22/23 09:28 Dose: 25 mg Vitamin D (Cholecalciferol (Vitamin D3) 25 Mcg Tablet) 50 mcg PO DAILY [facility] Last Admin: 10/22/23 09:39 Dose: 50 mcg Home Medications ?Medication ?Instructions ?Recorded ?Confirmed ?Last Taken ?Type aspirin 81 mg tablet,delayed 81 mg PO DAILY 09/22/20 10/21/23 10/20/23 History release blood sugar diagnostic #10 ea 09/22/20 09/22/20 Unknown History cholecalciferol (vitamin D3) 25 50 mcg PO DAILY 09/22/20 10/21/23 10/20/23 History mcg (1,000 unit) tablet clonidine HCl 0.2 mg tablet 0.2 mg PO BEDTIME 09/22/20 10/21/23 10/20/23 History diltiazem HCl 360 mg capsule,24 360 mg PO DAILY 09/22/20 10/21/23 10/20/23 History hr,extended release dulaglutide 0.75 mg/0.5 mL 0.75 mg subcut QWEEK 09/22/20 10/21/23 07/12/23 History subcutaneous pen injector hydrochlorothiazide 25 mg tablet 25 mg PO DAILY 09/22/20 10/21/23 10/20/23 History lancets 33 gauge #100 ea 09/22/20 09/22/20 Unknown History lisinopril 40 mg tablet 40 mg PO DAILY 09/22/20 10/21/23 10/20/23 History montelukast 10 mg tablet 10 mg PO BEDTIME 09/22/20 10/21/23 10/20/23 History pravastatin 80 mg tablet 80 mg PO BEDTIME 09/22/20 10/21/23 10/20/23 History tiotropium bromide 18 mcg capsule 1 cap inhalation DAILY 09/22/20 10/21/23 10/20/23 History with inhalation device magnesium oxide 400 mg (241.3 mg 400 mg PO BID 10/12/22 10/21/23 10/20/23 History magnesium) tablet fluticasone 250 mcg-salmeterol 50 1 ea inhalation BID 04/12/23 10/21/23 10/20/23 History mcg/dose blistr powdr for inhalation metformin 500 mg tablet,extended 1,000 mg PO BID 04/12/23 10/21/23 10/20/23 History release 24 hr levothyroxine 125 mcg tablet 125 mcg PO DAILY@0600 07/19/23 10/21/23 10/20/23 History spironolactone 25 mg tablet 25 mg PO DAILY 10/21/23 10/21/23 10/20/23 History Physical Exam 2 Vital Signs: Vital Signs: Last Vital Signs Temp 97.8 F 10/21/23 17:10 Pulse 71 10/22/23 08:08 Resp 22 H 10/22/23 08:08 BP 137/86 10/22/23 09:28 Pulse Ox 98 10/22/23 08:08 O2 Del Method Room Air 10/22/23 08:08 BMI result Body Mass Index 25.2 Neuro: Other: She is somewhat drowsy but easily arousable. I saw her in the morning and she was probably sleeping. Face was symmetrical. Visual epperson are full. Language was normal. There was no focal weakness. Plantars were flexors. Deep tendon reflexes were trace to absent. Results Labs 10/21/23 10:23 10/22/23 09:22 Labs: BMP 10/21/23 10/22/23 10/22/23 10:23 04:22 09:22 Sodium 142 144 144 Potassium 3.7 D 3.1 L 3.2 L Chloride 111 H 110 H 113 H Carbon Dioxide 18 L 22 21 L BUN 25 H 18 H 18 H Creatinine 1.20 0.96 1.03 Calcium 7.4 L D 7.5 L 7.2 L Cardiac Enzymes 10/21/23 Range/Units 10:23 Total Creatine Kinase 75 (26-140) U/L Liver Function 10/21/23 Range/Units 10:23 Total Bilirubin 0.5 (0.0-1.0) mg/dL AST 17 (5-31) U/L ALT 18 (0-31) U/L Alkaline Phosphatase 68 (39-117) U/L Albumin 3.9 (3.5-5.0) g/dL Urine 10/21/23 Range/Units 17:07 Urine Color Yellow Urine Appearance Clear Urine pH 5.0 (5.0-9.0) Ur Specific [place] >= 1.030 H (1.005-1.025) Urine Protein Negative (Neg-Trace) mg/dL Urine Glucose (UA) Negative (Negative) mg/dL CT and CTA of brain did not reveal any significant abnormality. Assessment and Plan (1) Dizziness: Status: Acute 58 years old woman with dizziness that probably is part of a viral or systemic illness. There is no obvious indication of a primary neurological syndrome. Symptomatic treatment is recommended Procedures Date of Service Date of Service: 10/22/23
[2023-10-22 12:53] LABS: Glucose, Whole Blood 85 mg/dL (60-115)
--- NOTE | 2023-10-22 13:06 | P.PNIM_ITS ---
Subjective Subjective Date of Service: 10/22/23 Interval History: possible viral gasteroentritis ,generalised weak,dizziness Physical Exam 2 Vital Signs: Vital Signs: Last Vital Signs Temp 97.8 F 10/22/23 12:46 Pulse 60 10/22/23 12:46 Resp 12 10/22/23 12:46 BP 149/68 H 10/22/23 12:46 Pulse Ox 98 10/22/23 12:46 O2 Del Method Room Air 10/22/23 12:46 BMI result Body Mass Index 25.2 Appearance: Alert.? Oriented X3. Eyes: Pupils equal, round and reactive to light.? mucosa-moist cvs: rrr, [id number] res: air entry fair,no rales abd: bs present ,nd,nt. ext pulses present , no cyanosis neuro: axo3 , nonfocal. Objective Data Active Medications Acetaminophen (Acetaminophen 325 Mg Tablet) 650 mg PO Q6H PRN PRN Reason: Pain, Mild (Pain Scale 1-3), fever or headache Aspirin (Aspirin Enteric Coated 81 Mg Tablet.) 81 mg PO DAILY [facility] Last Admin: 10/22/23 09:29 Dose: 81 mg Documented By: ENID Benzonatate (Benzonatate 100 Mg Capsule) 100 mg PO TID PRN PRN Reason: Cough Calcium Carbonate (Calcium Carbonate 750 Mg Tab.Chew) 750 mg PO Q4H PRN PRN Reason: Heartburn Clonidine HCl (Clonidine Hcl 0.2 Mg Tablet) 0.2 mg PO BEDTIME [facility]; Protocol Last Admin: 10/21/23 21:26 Dose: 0.2 mg Documented By: MICHAEL Enoxaparin Sodium (Enoxaparin Sodium 40 Mg/0.4 Ml Syringe) 40 mg SUBCUT Q24H [facility] Last Admin: 10/21/23 17:52 Dose: 40 mg Documented By: ALYSON Gabapentin (Gabapentin 100 Mg Capsule) 100 mg PO TID [facility] Last Admin: 10/22/23 09:30 Dose: 100 mg Documented By: ENID Glucose (Glucose Gel 15 Gm Gel..Gram.) 15 gm PO Q15M PRN; Protocol PRN Reason: per Hypoglycemia Standing Ord. Hydrochlorothiazide (Hydrochlorothiazide 25 Mg Tablet) 25 mg PO DAILY [facility]; Protocol Last Admin: 10/22/23 09:26 Dose: 25 mg Documented By: ENID Lactated Ringer's (Lr) 1,000 mls @ 80 mls/hr IVCONT .[id number] [facility] Last Admin: 10/22/23 04:48 Dose: 80 mls/hr Documented By: MICHAEL Dextrose (D10) 250 mls @ 750 mls/hr IV Q15M PRN; Protocol PRN Reason: per Hypoglycemia Standing Ord. Insulin Human Lispro (Insulin Lispro 100 Unit/Ml 3 Ml Vial) 0 unit SUBCUT QIDACHS [facility]; Protocol Last Admin: 10/22/23 08:17 Dose: Not Given Documented By: ENID Non-Admin Reason: No Insulin Coverage Comments: POC 120 Levothyroxine Sodium (Levothyroxine Sodium 125 Mcg Tablet) 125 mcg PO DAILY@0600 [facility] Last Admin: 10/22/23 09:26 Dose: 125 mcg Documented By: ENID Lisinopril (Lisinopril 40 Mg Tablet) 40 mg PO DAILY [facility]; Protocol Last Admin: 10/22/23 09:28 Dose: 40 mg Documented By: ENID Loperamide HCl (Loperamide Hcl 2 Mg Capsule) 2 mg PO Q6H PRN PRN Reason: Diarrhea Magnesium Hydroxide (Milk Of Magnesia 30 Ml Oral.Susp) 30 ml PO DAILY PRN PRN Reason: Constipation Magnesium Oxide (Magnesium Oxide 400 Mg Tablet) 400 mg PO BID [facility] Last Admin: 10/22/23 09:30 Dose: 400 mg Documented By: ENID Meclizine HCl (Meclizine Hcl 25 Mg Tablet) 25 mg PO TID [facility] Last Admin: 10/22/23 09:29 Dose: 25 mg Documented By: ENID Melatonin (Melatonin 3 Mg Tablet) 6 mg PO BEDTIME PRN PRN Reason: Insomnia Montelukast Sodium (Montelukast Sodium 10 Mg Tablet) 10 mg PO BEDTIME [facility] Last Admin: 10/21/23 21:27 Dose: 10 mg Documented By: MICHAEL Omeprazole (Omeprazole 20 Mg Capsule.Dr) 20 mg PO BID@0630,1630 [facility] Last Admin: 10/22/23 06:16 Dose: 20 mg Documented By: MICHAEL Ondansetron HCl (Ondansetron Hcl 4 Mg/2 Ml Vial) 4 mg IVPUSH Q8H PRN PRN Reason: Nausea and Vomiting Pravastatin Sodium (Pravastatin Sodium 80 Mg Tablet) 80 mg PO BEDTIME [facility] Last Admin: 10/21/23 21:48 Dose: 80 mg Documented By: MICHAEL Sodium Chloride (0.9 % Sodium Chloride Flush 3 Ml Syringe) 3 ml IVFLUSH QSHIFT [facility] Last Admin: 10/22/23 09:30 Dose: Not Given Documented By: ENID Non-Admin Reason: IV Running Spironolactone (Spironolactone 25 Mg Tablet) 25 mg PO DAILY [facility]; Protocol Last Admin: 10/22/23 09:28 Dose: 25 mg Documented By: ENID Vitamin D (Cholecalciferol (Vitamin D3) 25 Mcg Tablet) 50 mcg PO DAILY [facility] Last Admin: 10/22/23 09:39 Dose: 50 mcg Documented By: ENID Labs 10/21/23 10:23 10/22/23 09:22 Labs: Laboratory Results - last 24 hr 10/21/23 10/21/23 10/21/23 10:23 13:39 17:07 Anion Gap Estim Creat Clear Calc Estimated GFR POC Glucose Random Glucose Calcium Free T4 1.28 Urine Color Yellow Urine Appearance Clear Urine pH 5.0 Ur Specific [place] >= 1.030 H Urine Protein Negative Urine Glucose (UA) Negative Urine Ketones Trace Urine Blood Negative Urine Nitrite Negative Ur Leukocyte Esterase Negative Stl C. cayetanensis PCR Not Detected Stool Rotavirus A PCR Not Detected Stl Adenov F 40/41 PCR Not Detected Stool Astrovirus (PCR) Not Detected Stool Campylobacter PCR Not Detected Stool Cryptosporidium PCR Not Detected Stl Sh Tox Pr E STEC PCR Not Detected Stool E coli O157 PCR Not applicable Stl Enterotoxigenic E PCR Not Detected Stool EPEC (PCR) Not Detected Stool EAEC (PCR) Not Detected Stl E. histolytica PCR Not Detected Stool Giardia Lamblia PCR Not Detected Stl P. shigelloides PCR Not Detected Stool Salmonella PCR Not Detected Stool Sapovirus (PCR) Not Detected Stl Shigella/EIEC PCR Not Detected St Y.enterocolitica PCR Not Detected Stool Vibrio (PCR) Not Detected Stl Vibrio cholerae PCR Not Detected Stl Norovirus GI/GII PCR Not Detected C. difficile Tox B Gene NEGATIVE 10/21/23 10/21/23 10/22/23 18:32 21:01 04:22 Anion Gap 15 Estim Creat Clear Calc 58.3 Estimated GFR 59 POC Glucose 104 109 Random Glucose 91 Calcium 7.5 L Free T4 Urine Color Urine Appearance Urine pH Ur Specific [place] Urine Protein Urine Glucose (UA) Urine Ketones Urine Blood Urine Nitrite Ur Leukocyte Esterase Stl C. cayetanensis PCR Stool Rotavirus A PCR Stl Adenov F 40/41 PCR Stool Astrovirus (PCR) Stool Campylobacter PCR Stool Cryptosporidium PCR Stl Sh Tox Pr E STEC PCR Stool E coli O157 PCR Stl Enterotoxigenic E PCR Stool EPEC (PCR) Stool EAEC (PCR) Stl E. histolytica PCR Stool Giardia Lamblia PCR Stl P. shigelloides PCR Stool Salmonella PCR Stool Sapovirus (PCR) Stl Shigella/EIEC PCR St Y.enterocolitica PCR Stool Vibrio (PCR) Stl Vibrio cholerae PCR Stl Norovirus GI/GII PCR C. difficile Tox B Gene 10/22/23 10/22/23 10/22/23 07:34 09:22 12:46 Anion Gap 13 Estim Creat Clear Calc 54.3 Estimated GFR 55 POC Glucose 120 H 85 Random Glucose 96 Calcium 7.2 L Free T4 Urine Color Urine Appearance Urine pH Ur Specific [place] Urine Protein Urine Glucose (UA) Urine Ketones Urine Blood Urine Nitrite Ur Leukocyte Esterase Stl C. cayetanensis PCR Stool Rotavirus A PCR Stl Adenov F 40/41 PCR Stool Astrovirus (PCR) Stool Campylobacter PCR Stool Cryptosporidium PCR Stl Sh Tox Pr E STEC PCR Stool E coli O157 PCR Stl Enterotoxigenic E PCR Stool EPEC (PCR) Stool EAEC (PCR) Stl E. histolytica PCR Stool Giardia Lamblia PCR Stl P. shigelloides PCR Stool Salmonella PCR Stool Sapovirus (PCR) Stl Shigella/EIEC PCR St Y.enterocolitica PCR Stool Vibrio (PCR) Stl Vibrio cholerae PCR Stl Norovirus GI/GII PCR C. difficile Tox B Gene Assessment and Plan (1) Enteritis: Status: Acute (2) Dizziness: Status: Acute Plan 58-year-old Yi-speaking female with a PMH significant for HTN, HLD, COPD, [id number]-mpieelijr type 2 diabetes, IBS, exocrine pancreatic insufficiency, and hypothyroidism?who presents to the ED with?multiple complaints including nausea, vomiting, diarrhea, abdominal pain, and dizziness. Pt will be admitted to the hospital for treatment and further evaluation of intractable dizziness and inability to ambulate, and intractable nausea and vomiting in the setting likely enteritis. Enteritis Pt with N/V/D and lower abd pain x4-[address] of abd/pelvis showing multiple fluid-filled thick-walled loops of jejunum concerning for enteritis versus internal hernia GI panel and C diff negative Antiemetics, Imodium, analgesics Diet as tolerated General surgery consult noted-no new acute intervention. Dizziness Pt with sudden dizziness while seated this morning, worse with head movement and position change Physical exam reveals mild horizontal nystagmus Will treat with meclizine 25 mg t.i.d. Neurology consult noted-due to underlying gasteroenteritis able to satnd but need lot of assistance to ambulate ,dizziness and gi symptoms somewhat improving ,vomited x1 this mornin PT consult , orthostatics negative Bradycardia improving Patient asymptomatic Will hold diltiazem Will monitor on telemetry Generalized weakness In the setting of above PT consult COPD Not in acute exacerbation Continue home inhalers HTN Continue hydrochlorothiazide, lisinopril, spironolactone Hold diltiazem HLD Continue statin Ard-zlhnizb-urpfnoyug type 2 diabetes Hold metformin Sliding-scale insulin, diabetic diet GERD PPI Mood disorder Continue home mood stabilizers Full Code DVT Prophylaxis: Lovenox Given that patient has significant comorbidities and is at significant risk of decline, as well as unable to ambulate or handle p.o.-ongoing need for stay- for treatment of?enteritis and intractable dizziness.Pt eval for dispo Quality Stroke Does the patient have a stroke diagnosis?: No VTE Prior VTE?: No VTE Risk Level:: Medical - moderate - high VTE Device Contraindication: Treatment Not Indicated VTE Drug Contraindication: N/A - Med Ordered
[2023-10-22 13:23] LABS: Glucose, Whole Blood 101 mg/dL (60-115)
[2023-10-22] MEDS: Enoxaparin Sodium 40 MG/0.4 ML SYRINGE SUBCUT (19:31)
[2023-10-22 19:32] LABS: Glucose, Whole Blood 132 mg/dL (60-115)
--- NOTE | 2023-10-22 19:33 | PC.NURSE ---
this rn assumed care of pt, pt a&ox4, respirations even and unlabored. dinner finished at this time, POC 132, no insulin coverage needed. pt assisted to bathroom, pt ambulated to bathroom with steady gait.
[2023-10-22 21:21] LABS: Glucose, Whole Blood 105 mg/dL (60-115)
[2023-10-22] MEDS: Montelukast Sodium 10 MG TABLET PO (21:27)
[2023-10-22] MEDS: cloNIDine HCL 0.2 MG TABLET PO (21:28)
--- NOTE | 2023-10-22 21:29 | PC.NURSE ---
pt medicated per apr, tolerated well with water. pharmacy to bring up pt pravastatin.
[2023-10-22] MEDS: Pravastatin Sodium 80 MG TABLET PO (21:46)
[2023-10-23] VITALS (10 sets, daily range): BP systolic 136–156; BP diastolic 68–75; PULSE 51–70; RESP 16–22; TEMP 36.1–36.8; O2SAT 96–100
[2023-10-23] MEDS: Omeprazole 20 MG CAPSULE.DR PO ×2 (06:23→17:33)
--- NOTE | 2023-10-23 06:29 | PC.NURSE ---
pharmacy to bring up pt levothyroxine.
[2023-10-23] MEDS: Levothyroxine Sodium 125 MCG TABLET PO (06:48)
[2023-10-23 06:56] LABS: Glucose, Whole Blood 103 mg/dL (60-115)
[2023-10-23 07:35] LABS: Glucose, Whole Blood 103 mg/dL (60-115)
[2023-10-23] MEDS: Cholecalciferol (Vitamin D3) 25 MCG TABLET 50 MCG PO (08:30)
[2023-10-23] MEDS: Gabapentin 100 MG CAPSULE PO ×3 (08:30→20:17)
[2023-10-23] MEDS: Potassium Chloride ER 20 MEQ TAB.ER.PRT PO (08:30)
[2023-10-23] MEDS: Meclizine HCl 25 MG TABLET PO ×3 (08:30→20:17)
[2023-10-23] MEDS: Aspirin Enteric Coated 81 MG TABLET.DR PO (08:30)
[2023-10-23] MEDS: amLODIPine Besylate 5 MG TABLET PO (08:30)
[2023-10-23] MEDS: Magnesium Oxide 400 MG TABLET PO ×2 (08:31→20:17)
[2023-10-23] MEDS: Spironolactone 25 MG TABLET PO (08:31)
--- NOTE | 2023-10-23 08:33 | PC.NURSE ---
ambulatory to BR with minimal assist. axox3. c/o headache but no abd pain. ate full breakfast. NAD.
[2023-10-23 09:04] LABS: Potassium 4.2 mmol/L (3.3-5.1)
--- NOTE | 2023-10-23 10:54 | MHC.CM.PN ---
CM attempted to meet with Patient at bedside but she had just begun working with PT; CM spoke with Daughter/Mala @ [phone] and addressed IMM with her (original will be mailed certified letter to Mala and a copy will be placed on the chart). 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 DC plan is pending PT eval; CM has initiated and will follow for dc planning.PCP is Dr. Yeni Willoughby and Daughter will transport to home.
[2023-10-23 12:06] LABS: Glucose, Whole Blood 111 mg/dL (60-115)
--- NOTE | 2023-10-23 13:47 | MHC.CM.PN ---
PT is recommending Acute Rehab; CM will follow.
[2023-10-23] MEDS: 0.9 % Sodium Chloride Flush 3 ML SYRINGE IVFLUSH ×2 (15:25→20:17)
--- NOTE | 2023-10-23 15:32 | P.PNIM_ITS ---
Subjective Subjective Date of Service: 10/23/23 Interval History: possible viral gasteroentritis ,generalised weak,dizziness Review of Systems still feels weak no new diarrhae or fevers Physical Exam 2 Vital Signs: Vital Signs: Last Vital Signs Temp 97.0 F 10/23/23 12:00 Pulse 59 10/23/23 12:00 Resp 16 10/23/23 12:00 BP 155/74 H 10/23/23 12:00 Pulse Ox 99 10/23/23 12:00 O2 Del Method Room Air 10/23/23 12:00 BMI result Body Mass Index 25.2 Appearance: Alert.? Oriented X3. Eyes: Pupils equal, round and reactive to light.? mucosa-moist cvs: [id number], [id number] res: air entry fair,no rales abd: bs present ,nd,nt. ext pulses present , no cyanosis neuro: axo3 , nonfocal. Objective Data Active Medications Acetaminophen (Acetaminophen 325 Mg Tablet) 650 mg PO Q6H PRN PRN Reason: Pain, Mild (Pain Scale 1-3), fever or headache Amlodipine Besylate (Amlodipine Besylate 5 Mg Tablet) 5 mg PO DAILY [facility]; Protocol Last Admin: 10/23/23 08:30 Dose: 5 mg Documented By: LUIS Aspirin (Aspirin Enteric Coated 81 Mg Tablet.Dr) 81 mg PO DAILY [facility] Last Admin: 10/23/23 08:30 Dose: 81 mg Documented By: LUIS Benzonatate (Benzonatate 100 Mg Capsule) 100 mg PO TID PRN PRN Reason: Cough Calcium Carbonate (Calcium Carbonate 750 Mg Tab.Chew) 750 mg PO Q4H PRN PRN Reason: Heartburn Clonidine HCl (Clonidine Hcl 0.2 Mg Tablet) 0.2 mg PO BEDTIME [facility]; Protocol Last Admin: 10/22/23 21:28 Dose: 0.2 mg Documented By: EARLENE Enoxaparin Sodium (Enoxaparin Sodium 40 Mg/0.4 Ml Syringe) 40 mg SUBCUT Q24H [facility] Last Admin: 10/22/23 19:31 Dose: 40 mg Documented By: EARLENE Gabapentin (Gabapentin 100 Mg Capsule) 100 mg PO TID [facility] Last Admin: 10/23/23 15:24 Dose: 100 mg Documented By: NILDA Glucose (Glucose Gel 15 Gm Gel..Gram.) 15 gm PO Q15M PRN; Protocol PRN Reason: per Hypoglycemia Standing Ord. Dextrose (D10) 250 mls @ 750 mls/hr IV Q15M PRN; Protocol PRN Reason: per Hypoglycemia Standing Ord. Insulin Human Lispro (Insulin Lispro 100 Unit/Ml 3 Ml Vial) 0 unit SUBCUT QIDACHS [facility]; Protocol Last Admin: 10/23/23 12:31 Dose: Not Given Documented By: NILDA Non-Admin Reason: No Insulin Coverage Levothyroxine Sodium (Levothyroxine Sodium 125 Mcg Tablet) 125 mcg PO DAILY@0600 [facility] Last Admin: 10/23/23 06:48 Dose: 125 mcg Documented By: EARLENE Loperamide HCl (Loperamide Hcl 2 Mg Capsule) 2 mg PO Q6H PRN PRN Reason: Diarrhea Magnesium Hydroxide (Milk Of Magnesia 30 Ml Oral.Susp) 30 ml PO DAILY PRN PRN Reason: Constipation Magnesium Oxide (Magnesium Oxide 400 Mg Tablet) 400 mg PO BID [facility] Last Admin: 10/23/23 08:31 Dose: 400 mg Documented By: LUIS Meclizine HCl (Meclizine Hcl 25 Mg Tablet) 25 mg PO TID [facility] Last Admin: 10/23/23 15:24 Dose: 25 mg Documented By: NILDA Melatonin (Melatonin 3 Mg Tablet) 6 mg PO BEDTIME PRN PRN Reason: Insomnia Montelukast Sodium (Montelukast Sodium 10 Mg Tablet) 10 mg PO BEDTIME [facility] Last Admin: 10/22/23 21:27 Dose: 10 mg Documented By: EARLENE Omeprazole (Omeprazole 20 Mg Capsule.) 20 mg PO BID@0630,1630 [facility] Last Admin: 10/23/23 06:23 Dose: 20 mg Documented By: EARLENE Ondansetron HCl (Ondansetron Hcl 4 Mg/2 Ml Vial) 4 mg IVPUSH Q8H PRN PRN Reason: Nausea and Vomiting Pravastatin Sodium (Pravastatin Sodium 80 Mg Tablet) 80 mg PO BEDTIME [facility] Last Admin: 10/22/23 21:46 Dose: 80 mg Documented By: EARLENE Sodium Chloride (0.9 % Sodium Chloride Flush 3 Ml Syringe) 3 ml IVFLUSH QSHIFT [facility] Last Admin: 10/23/23 15:25 Dose: 3 ml Documented By: HO.DOBROB Spironolactone (Spironolactone 25 Mg Tablet) 25 mg PO DAILY [facility]; Protocol Last Admin: 10/23/23 08:31 Dose: 25 mg Documented By: LUIS Vitamin D (Cholecalciferol (Vitamin D3) 25 Mcg Tablet) 50 mcg PO DAILY [facility] Last Admin: 10/23/23 08:30 Dose: 50 mcg Documented By: LUIS Labs 10/21/23 10:23 10/23/23 08:35 Labs: Laboratory Results - last 24 hr 10/22/23 10/22/23 10/23/23 19:26 21:17 06:51 POC Glucose 132 H 105 103 10/23/23 10/23/23 07:28 12:01 POC Glucose 103 111 Assessment and Plan (1) Enteritis: Status: Acute (2) Dizziness: Status: Acute Assessment and Plan: 58-year-old [place]ese-speaking female with a PMH significant for HTN, HLD, COPD, wch-mrxjztb-jhlopvsav type 2 diabetes, IBS, exocrine pancreatic insufficiency, and hypothyroidism?who presents to the ED with?multiple complaints including nausea, vomiting, diarrhea, abdominal pain, and dizziness. Pt will be admitted to the hospital for treatment and further evaluation of intractable dizziness and inability to ambulate, and intractable nausea and vomiting in the setting likely enteritis. Enteritis Pt with N/V/D and lower abd pain x4-[address] of abd/pelvis showing multiple fluid-filled thick-walled loops of jejunum concerning for enteritis versus internal hernia GI panel and C diff negative Antiemetics, Imodium, analgesics Diet as tolerated General surgery consult noted-no new acute intervention. Dizziness Pt with sudden dizziness while seated this morning, worse with head movement and position change Physical exam reveals mild horizontal nystagmus Will treat with meclizine 25 mg t.i.d. Neurology consult noted-due to underlying gasteroenteritis able to stand but need lot of assistance to ambulate ,dizziness and gi symptoms somewhat improving PT consult-might need acute rosy ,Pt will follow up in am , orthostatics negative Bradycardia improving Patient asymptomatic Will hold diltiazem Will monitor on telemetry Generalized weakness In the setting of above PT consult COPD Not in acute exacerbation Continue home inhalers HTN Continue hydrochlorothiazide, lisinopril, spironolactone Hold diltiazem HLD Continue statin Res-sxcrwlu-vwdmvhtdo type 2 diabetes Hold metformin Sliding-scale insulin, diabetic diet GERD PPI Mood disorder Continue home mood stabilizers Full Code DVT Prophylaxis: Lovenox Given that patient has significant comorbidities and is at significant risk of decline/genealised weak-dispo : awaiting acute rehab Quality Stroke Does the patient have a stroke diagnosis?: No VTE Prior VTE?: No VTE Risk Level:: Medical - moderate - high VTE Device Contraindication: Treatment Not Indicated VTE Drug Contraindication: N/A - Med Ordered
[2023-10-23 17:02] LABS: Glucose, Whole Blood 110 mg/dL (60-115)
[2023-10-23] MEDS: Enoxaparin Sodium 40 MG/0.4 ML SYRINGE SUBCUT (17:36)
[2023-10-23 19:50] LABS: Glucose, Whole Blood 109 mg/dL (60-115)
[2023-10-23] MEDS: cloNIDine HCL 0.2 MG TABLET PO (20:17)
[2023-10-23] MEDS: Montelukast Sodium 10 MG TABLET PO (20:17)
[2023-10-23] MEDS: Pravastatin Sodium 80 MG TABLET PO (20:17)
[2023-10-23] MEDS: Acetaminophen 325 MG TABLET 650 MG PO (20:23)
[2023-10-24] VITALS (7 sets, daily range): BP systolic 125–161; BP diastolic 65–79; PULSE 46–96; RESP 16–21; TEMP 35.8–36.5; O2SAT 94–99
--- NOTE | 2023-10-24 02:31 | PC.NURSE ---
Pt HR noted to be frequently in mid-40's to mid 50's this morning. Tele appears sinus aristides. Attending note reviewed and makes mention of bradycardia, improving, and holding diltiazam. Pt is asymptomatic. Vitals obtained and BP stable 156/74, similar to recent BPs. Covering Dr. Chavira notified. EKG deferred, continue with regularly scheduled vitals advised.
[2023-10-24] MEDS: Acetaminophen 325 MG TABLET 650 MG PO (05:36)
[2023-10-24] MEDS: Omeprazole 20 MG CAPSULE.DR PO ×2 (05:36→17:11)
[2023-10-24] MEDS: Levothyroxine Sodium 125 MCG TABLET PO (05:36)
[2023-10-24 07:09] LABS: Glucose, Whole Blood 101 mg/dL (60-115)
[2023-10-24] MEDS: Gabapentin 100 MG CAPSULE PO ×3 (08:09→20:41)
[2023-10-24] MEDS: Magnesium Oxide 400 MG TABLET PO ×2 (08:09→20:41)
[2023-10-24] MEDS: Cholecalciferol (Vitamin D3) 25 MCG TABLET 50 MCG PO (08:09)
[2023-10-24] MEDS: amLODIPine Besylate 10 MG TABLET PO (08:09)
[2023-10-24] MEDS: Spironolactone 25 MG TABLET PO (08:09)
[2023-10-24] MEDS: Meclizine HCl 25 MG TABLET PO ×3 (08:09→20:41)
[2023-10-24] MEDS: Aspirin Enteric Coated 81 MG TABLET.DR PO (08:09)
[2023-10-24] MEDS: 0.9 % Sodium Chloride Flush 3 ML SYRINGE IVFLUSH ×2 (08:10→17:12)
[2023-10-24 11:34] LABS: Glucose, Whole Blood 138 mg/dL (60-115)
[2023-10-24] MEDS: Milk of Magnesia 30 ML ORAL.SUSP PO (11:50)
--- NOTE | 2023-10-24 12:09 | P.PNIM_ITS ---
Subjective Subjective Date of Service: 10/31/23 Interval History: dizziness , generalized weakness Review of Systems Dizziness seems to be improved Still weak Physical Exam 2 Vital Signs: Vital Signs: Last Vital Signs Temp 97.0 F 10/24/23 11:04 Pulse 78 10/24/23 11:04 Resp 16 10/24/23 11:04 BP 131/75 10/24/23 11:04 Pulse Ox 99 10/24/23 11:04 O2 Del Method Room Air 10/24/23 11:04 BMI result Body Mass Index 25.2 Appearance: Alert.? Oriented X3. Eyes: Pupils equal, round and reactive to light.? mucosa-moist cvs: rrr, [id number] res: air entry fair,no rales abd: bs present ,nd,nt. ext pulses present , no cyanosis neuro: axo3 , nonfocal. Objective Data Active Medications Acetaminophen (Acetaminophen 325 Mg Tablet) 650 mg PO Q6H PRN PRN Reason: Pain, Mild (Pain Scale 1-3), fever or headache Last Admin: 10/24/23 05:36 Dose: 650 mg Documented By: ADAMA Amlodipine Besylate (Amlodipine Besylate 10 Mg Tablet) 10 mg PO DAILY [facility]; Protocol Last Admin: 10/24/23 08:09 Dose: 10 mg Documented By: NILDA Aspirin (Aspirin Enteric Coated 81 Mg Tablet.) 81 mg PO DAILY [facility] Last Admin: 10/24/23 08:09 Dose: 81 mg Documented By: NILDA Benzonatate (Benzonatate 100 Mg Capsule) 100 mg PO TID PRN PRN Reason: Cough Calcium Carbonate (Calcium Carbonate 750 Mg Tab.Chew) 750 mg PO Q4H PRN PRN Reason: Heartburn Clonidine HCl (Clonidine Hcl 0.2 Mg Tablet) 0.2 mg PO BEDTIME [facility]; Protocol Last Admin: 10/23/23 20:17 Dose: 0.2 mg Documented By: ADAMA Enoxaparin Sodium (Enoxaparin Sodium 40 Mg/0.4 Ml Syringe) 40 mg SUBCUT Q24H [facility] Last Admin: 10/23/23 17:36 Dose: 40 mg Documented By: NILDA Gabapentin (Gabapentin 100 Mg Capsule) 100 mg PO TID [facility] Last Admin: 10/24/23 08:09 Dose: 100 mg Documented By: NILDA Glucose (Glucose Gel 15 Gm Gel..Gram.) 15 gm PO Q15M PRN; Protocol PRN Reason: per Hypoglycemia Standing Ord. Dextrose (D10) 250 mls @ 750 mls/hr IV Q15M PRN; Protocol PRN Reason: per Hypoglycemia Standing Ord. Insulin Human Lispro (Insulin Lispro 100 Unit/Ml 3 Ml Vial) 0 unit SUBCUT QIDACHS [facility]; Protocol Last Admin: 10/24/23 11:37 Dose: Not Given Documented By: NILDA Non-Admin Reason: No Insulin Coverage Levothyroxine Sodium (Levothyroxine Sodium 125 Mcg Tablet) 125 mcg PO DAILY@0600 [facility] Last Admin: 10/24/23 05:36 Dose: 125 mcg Documented By: ADAMA Loperamide HCl (Loperamide Hcl 2 Mg Capsule) 2 mg PO Q6H PRN PRN Reason: Diarrhea Magnesium Hydroxide (Milk Of Magnesia 30 Ml Oral.Susp) 30 ml PO DAILY PRN PRN Reason: Constipation Last Admin: 10/24/23 11:50 Dose: 30 ml Documented By: NILDA Magnesium Oxide (Magnesium Oxide 400 Mg Tablet) 400 mg PO BID [facility] Last Admin: 10/24/23 08:09 Dose: 400 mg Documented By: NILDA Meclizine HCl (Meclizine Hcl 25 Mg Tablet) 25 mg PO TID [facility] Last Admin: 10/24/23 08:09 Dose: 25 mg Documented By: NILDA Melatonin (Melatonin 3 Mg Tablet) 6 mg PO BEDTIME PRN PRN Reason: Insomnia Montelukast Sodium (Montelukast Sodium 10 Mg Tablet) 10 mg PO BEDTIME [facility] Last Admin: 10/23/23 20:17 Dose: 10 mg Documented By: ADAMA Omeprazole (Omeprazole 20 Mg Capsule.) 20 mg PO BID@0630,1630 [facility] Last Admin: 10/24/23 05:36 Dose: 20 mg Documented By: ADAMA Ondansetron HCl (Ondansetron Hcl 4 Mg/2 Ml Vial) 4 mg IVPUSH Q8H PRN PRN Reason: Nausea and Vomiting Pravastatin Sodium (Pravastatin Sodium 80 Mg Tablet) 80 mg PO BEDTIME [facility] Last Admin: 10/23/23 20:17 Dose: 80 mg Documented By: ADAMA Sodium Chloride (0.9 % Sodium Chloride Flush 3 Ml Syringe) 3 ml IVFLUSH QSHIFT [facility] Last Admin: 10/24/23 08:10 Dose: 3 ml Documented By: NILDA Spironolactone (Spironolactone 25 Mg Tablet) 25 mg PO DAILY [facility]; Protocol Last Admin: 10/24/23 08:09 Dose: 25 mg Documented By: NILDA Vitamin D (Cholecalciferol (Vitamin D3) 25 Mcg Tablet) 50 mcg PO DAILY [facility] Last Admin: 10/24/23 08:09 Dose: 50 mcg Documented By: NILDA Labs 10/26/23 05:35 10/26/23 05:35 Labs: Laboratory Results - last 24 hr 10/23/23 10/23/23 10/24/23 16:54 19:16 06:55 POC Glucose 110 109 101 10/24/23 11:27 POC Glucose 138 H Assessment and Plan (1) Dizziness: Status: Acute Assessment and Plan: 58-year-old [place]ese-speaking female with a PMH significant for HTN, HLD, COPD, gfz-rnasgha-irjkkdgnc type 2 diabetes, IBS, exocrine pancreatic insufficiency, and hypothyroidism?who presents to the ED with?multiple complaints including nausea, vomiting, diarrhea, abdominal pain, and dizziness. Pt will be admitted to the hospital for treatment and further evaluation of intractable dizziness and inability to ambulate, and intractable nausea and vomiting in the setting likely enteritis. Enteritis Pt with N/V/D and lower abd pain x4-[address] of abd/pelvis showing multiple fluid-filled thick-walled loops of jejunum concerning for enteritis versus internal hernia GI panel and C diff negative Antiemetics, Imodium, analgesics Diet as tolerated General surgery consult noted-no new acute intervention. Dizziness Pt with sudden dizziness while seated this morning, worse with head movement and position change Physical exam reveals mild horizontal nystagmus Will treat with meclizine 25 mg t.i.d. Neurology consult noted-due to underlying gasteroenteritis able to stand but need lot of assistance to ambulate ,dizziness and gi symptoms somewhat improving PT consult-might need acute rosy ,Pt will follow up in am , orthostatics negative Bradycardia improving Patient asymptomatic hold diltiazem Will monitor on telemetry Generalized weakness In the setting of above PT consult COPD Not in acute exacerbation Continue home inhalers HTN added amlodipine 10 mg po daily ,spironolactone, will intrioduce hctz (home dose) , consider resrtarting lisinopril home dose ( if start lisinopril -amlodipine dosing might need to be adjusted ). intially hctz/lisinopril placed on hold due to decreased po intake ( avoid renal/electrolytes issues) Hold diltiazem( unclear why she is on it) HLD Continue statin Vuu-glgnasq-cmdnyfzch type 2 diabetes Hold metformin Sliding-scale insulin, diabetic diet GERD PPI Mood disorder Continue home mood stabilizers Full Code DVT Prophylaxis: Lovenox Given that patient has significant comorbidities and is at significant risk of decline/genealised weak-dispo : awaiting acute rehab Quality Stroke Does the patient have a stroke diagnosis?: No VTE Prior VTE?: No VTE Risk Level:: Medical - moderate - high VTE Device Contraindication: Treatment Not Indicated VTE Drug Contraindication: N/A - Med Ordered
--- NOTE | 2023-10-24 12:30 | MHC.CM.PN ---
Patient is medically cleared for dc and the recommendation is for STR. CM spoke with Patient at bedside with the assist of a Proj Mgr and spoke with Daughter/Mala @ listed number; both are in agreement to STR but no bed offers as of yet(Patient admits to using Cocaine on 10/18/2023). has been made aware and GUNJAN will follow.
[2023-10-24 15:56] LABS: Glucose, Whole Blood 105 mg/dL (60-115)
[2023-10-24] MEDS: Enoxaparin Sodium 40 MG/0.4 ML SYRINGE SUBCUT (17:12)
[2023-10-24 19:57] LABS: Glucose, Whole Blood 120 mg/dL (60-115)
[2023-10-24] MEDS: Melatonin 3 MG TABLET 6 MG PO (20:40)
[2023-10-24] MEDS: cloNIDine HCL 0.2 MG TABLET PO (20:40)
[2023-10-24] MEDS: Pravastatin Sodium 80 MG TABLET PO (20:41)
[2023-10-24] MEDS: Montelukast Sodium 10 MG TABLET PO (20:41)
[2023-10-25] VITALS (8 sets, daily range): BP systolic 138–158; BP diastolic 66–86; PULSE 46–88; RESP 18–22; TEMP 35.8–36.8; O2SAT 96–99
[2023-10-25] MEDS: 0.9 % Sodium Chloride Flush 3 ML SYRINGE IVFLUSH ×2 (00:45→15:25)
[2023-10-25] MEDS: Acetaminophen 325 MG TABLET 650 MG PO (01:53)
[2023-10-25] MEDS: Omeprazole 20 MG CAPSULE.DR PO ×2 (05:45→16:51)
[2023-10-25] MEDS: Levothyroxine Sodium 125 MCG TABLET PO (05:45)
[2023-10-25 07:10] LABS: Glucose, Whole Blood 112 mg/dL (60-115)
--- NOTE | 2023-10-25 07:35 | PC.NURSE ---
Patient c/o headache 08/06. Medicated with tylenol 650 mg po with moderate relief. VSS. SB on tele. VSS. [id number] . No insulin coverage.
--- NOTE | 2023-10-25 07:39 | PC.NURSE ---
Patient had an uneventful night. She slept throughout the shift with no complaints. Remains on O2 @ 2l. CISP=[id number] at HS. Night time snack given. External catheter in place. BM x1 reported. Assisted with turning and repositioning.
[2023-10-25] MEDS: hydroCHLOROthiazide 25 MG TABLET PO (08:00)
[2023-10-25] MEDS: amLODIPine Besylate 10 MG TABLET PO (08:00)
[2023-10-25] MEDS: Meclizine HCl 25 MG TABLET PO ×3 (08:00→22:20)
[2023-10-25] MEDS: Gabapentin 100 MG CAPSULE PO ×3 (08:01→22:20)
[2023-10-25] MEDS: Magnesium Oxide 400 MG TABLET PO ×2 (08:01→22:21)
[2023-10-25] MEDS: Cholecalciferol (Vitamin D3) 25 MCG TABLET 50 MCG PO (08:01)
[2023-10-25] MEDS: Spironolactone 25 MG TABLET PO (08:01)
[2023-10-25] MEDS: Aspirin Enteric Coated 81 MG TABLET.DR PO (08:01)
[2023-10-25 11:03] LABS: Glucose, Whole Blood 75 mg/dL (60-115)
--- NOTE | 2023-10-25 12:15 | MHC.CM.PN ---
Mitzi @ [facility] is the only accepting SNF of 14 referrals; Patient/Daughter/Mala are agreeable. GUNJAN has asked Mitzi to initiate [employer] auth. CM will follow.
--- NOTE | 2023-10-25 14:05 | P.PNIM_ITS ---
Subjective Subjective Date of Service: 10/25/23 Interval History: tolerating diet Physical Exam 2 Vital Signs: Vital Signs: Last Vital Signs Temp 98.2 F 10/25/23 11:06 Pulse 63 10/25/23 11:06 Resp 18 10/25/23 11:06 BP 138/66 10/25/23 11:06 Pulse Ox 96 10/25/23 11:06 O2 Del Method Room Air 10/25/23 11:06 BMI result Body Mass Index 25.2 Appearance: Alert.? Oriented X3. Eyes: Pupils equal, round and reactive to light.? mucosa-moist cvs: [id number], [id number] res: air entry fair,no rales abd: bs present ,nd,nt. ext pulses present , no cyanosis neuro: axo3 , nonfocal. Objective Data Active Medications Acetaminophen (Acetaminophen 325 Mg Tablet) 650 mg PO Q6H PRN PRN Reason: Pain, Mild (Pain Scale 1-3), fever or headache Last Admin: 10/25/23 01:53 Dose: 650 mg Documented By: PAYAL Amlodipine Besylate (Amlodipine Besylate 10 Mg Tablet) 10 mg PO DAILY [facility]; Protocol Last Admin: 10/25/23 08:00 Dose: 10 mg Documented By: FLAVIO Aspirin (Aspirin Enteric Coated 81 Mg Tablet.) 81 mg PO DAILY [facility] Last Admin: 10/25/23 08:01 Dose: 81 mg Documented By: FLAVIO Benzonatate (Benzonatate 100 Mg Capsule) 100 mg PO TID PRN PRN Reason: Cough Calcium Carbonate (Calcium Carbonate 750 Mg Tab.Chew) 750 mg PO Q4H PRN PRN Reason: Heartburn Clonidine HCl (Clonidine Hcl 0.2 Mg Tablet) 0.2 mg PO BEDTIME [facility]; Protocol Last Admin: 10/24/23 20:40 Dose: 0.2 mg Documented By: PAYAL Enoxaparin Sodium (Enoxaparin Sodium 40 Mg/0.4 Ml Syringe) 40 mg SUBCUT Q24H [facility] Last Admin: 10/24/23 17:12 Dose: 40 mg Documented By: NILDA Gabapentin (Gabapentin 100 Mg Capsule) 100 mg PO TID [facility] Last Admin: 10/25/23 08:01 Dose: 100 mg Documented By: FLAVIO Glucose (Glucose Gel 15 Gm Gel..Gram.) 15 gm PO Q15M PRN; Protocol PRN Reason: per Hypoglycemia Standing Ord. Hydrochlorothiazide (Hydrochlorothiazide 25 Mg Tablet) 25 mg PO DAILY [facility]; Protocol Last Admin: 10/25/23 08:00 Dose: 25 mg Documented By: FLAVIO Dextrose (D10) 250 mls @ 750 mls/hr IV Q15M PRN; Protocol PRN Reason: per Hypoglycemia Standing Ord. Insulin Human Lispro (Insulin Lispro 100 Unit/Ml 3 Ml Vial) 0 unit SUBCUT QIDACHS [facility]; Protocol Last Admin: 10/25/23 10:57 Dose: Not Given Documented By: FLAVIO Non-Admin Reason: No Insulin Coverage Levothyroxine Sodium (Levothyroxine Sodium 125 Mcg Tablet) 125 mcg PO DAILY@0600 [facility] Last Admin: 10/25/23 05:45 Dose: 125 mcg Documented By: PAYAL Loperamide HCl (Loperamide Hcl 2 Mg Capsule) 2 mg PO Q6H PRN PRN Reason: Diarrhea Magnesium Hydroxide (Milk Of Magnesia 30 Ml Oral.Susp) 30 ml PO DAILY PRN PRN Reason: Constipation Last Admin: 10/24/23 11:50 Dose: 30 ml Documented By: NILDA Magnesium Oxide (Magnesium Oxide 400 Mg Tablet) 400 mg PO BID [facility] Last Admin: 10/25/23 08:01 Dose: 400 mg Documented By: FLAVIO Meclizine HCl (Meclizine Hcl 25 Mg Tablet) 25 mg PO TID [facility] Last Admin: 10/25/23 08:00 Dose: 25 mg Documented By: FLAVIO Melatonin (Melatonin 3 Mg Tablet) 6 mg PO BEDTIME PRN PRN Reason: Insomnia Last Admin: 10/24/23 20:40 Dose: 6 mg Documented By: PAYAL Montelukast Sodium (Montelukast Sodium 10 Mg Tablet) 10 mg PO BEDTIME [facility] Last Admin: 10/24/23 20:41 Dose: 10 mg Documented By: PAYAL Omeprazole (Omeprazole 20 Mg Capsule.) 20 mg PO BID@0630,1630 [facility] Last Admin: 10/25/23 05:45 Dose: 20 mg Documented By: PAYAL Ondansetron HCl (Ondansetron Hcl 4 Mg/2 Ml Vial) 4 mg IVPUSH Q8H PRN PRN Reason: Nausea and Vomiting Pravastatin Sodium (Pravastatin Sodium 80 Mg Tablet) 80 mg PO BEDTIME [facility] Last Admin: 10/24/23 20:41 Dose: 80 mg Documented By: PAYAL Sodium Chloride (0.9 % Sodium Chloride Flush 3 Ml Syringe) 3 ml IVFLUSH QSHIFT [facility] Last Admin: 10/25/23 08:01 Dose: Not Given Documented By: FLAVIO Non-Admin Reason: no iv Spironolactone (Spironolactone 25 Mg Tablet) 25 mg PO DAILY [facility]; Protocol Last Admin: 10/25/23 08:01 Dose: 25 mg Documented By: FLAVIO Vitamin D (Cholecalciferol (Vitamin D3) 25 Mcg Tablet) 50 mcg PO DAILY [facility] Last Admin: 10/25/23 08:01 Dose: 50 mcg Documented By: FLAVIO Labs 10/21/23 10:23 10/23/23 08:35 Labs: Laboratory Results - last 24 hr 10/24/23 10/24/23 10/25/23 15:53 19:45 07:00 POC Glucose 105 120 H 112 10/25/23 10:56 POC Glucose 75 Assessment and Plan (1) Dizziness: Status: Acute Assessment and Plan: 58F PMH HTN, HLD, COPD, dag-jqoxtvp-crngcfwed type 2 diabetes, IBS, exocrine pancreatic insufficiency, and hypothyroidism?who presented to the ED with?multiple complaints including nausea, vomiting, diarrhea, abdominal pain, and dizziness. Enteritis Pt with N/V/D and lower abd pain x4-[address] of abd/pelvis showing multiple fluid-filled thick-walled loops of jejunum concerning for enteritis versus internal hernia GI panel and C diff negative Antiemetics, Imodium, analgesics resolved Dizziness Pt with sudden dizziness while seated this morning, worse with head movement and position change Physical exam reveals mild horizontal nystagmus meclizine 25 mg t.i.d. Neurology consult noted-due to underlying gasteroenteritis able to stand but need lot of assistance to ambulate ,dizziness and gi symptoms somewhat improving PT consult-might need acute rehab Bradycardia improving Patient asymptomatic holding diltiazem COPD stable HTN added amlodipine 10 mg po daily ,spironolactone, will intrioduce hctz (home dose) , consider resrtarting lisinopril home dose ( if start lisinopril -amlodipine dosing might need to be adjusted ). intially hctz/lisinopril placed on hold due to decreased po intake ( avoid renal/electrolytes issues) Hold diltiazem HLD Continue statin Cyh-iyibwhm-yisylgqqs type 2 diabetes Hold metformin Sliding-scale insulin, diabetic diet GERD PPI Full Code DVT Prophylaxis: Lovenox reason for continued hospitalization:awaiting bed Quality Stroke Does the patient have a stroke diagnosis?: No VTE Prior VTE?: No VTE Risk Level:: Medical - moderate - high VTE Device Contraindication: Treatment Not Indicated VTE Drug Contraindication: N/A - Med Ordered
[2023-10-25 16:29] LABS: Glucose, Whole Blood 141 mg/dL (60-115)
[2023-10-25] MEDS: Enoxaparin Sodium 40 MG/0.4 ML SYRINGE SUBCUT (16:51)
[2023-10-25 20:08] LABS: Glucose, Whole Blood 125 mg/dL (60-115)
[2023-10-25] MEDS: Montelukast Sodium 10 MG TABLET PO (22:19)
[2023-10-25] MEDS: Pravastatin Sodium 80 MG TABLET PO (22:19)
[2023-10-25] MEDS: cloNIDine HCL 0.2 MG TABLET PO (22:20)
[2023-10-25] MEDS: Melatonin 3 MG TABLET 6 MG PO (22:21)
[2023-10-26] MEDS: Acetaminophen 325 MG TABLET 650 MG PO (00:15)
[2023-10-26 04:00] VITALS: BP 147/81; PULSE 54; RESP 20; TEMP 35.8; O2SAT 95
[2023-10-26] MEDS: Omeprazole 20 MG CAPSULE.DR PO (06:12)
[2023-10-26] MEDS: Levothyroxine Sodium 125 MCG TABLET PO (06:12)
[2023-10-26 06:14] LABS: Hemoglobin 10.9 g/dl (12.0-16.0); Mean Corpuscular Hemoglobin 28.7 pg (27.0-33.0); Mean Corpuscular Volume 86.8 fL (80.0-98.0); Mean Platelet Volume 11.9 fL (9.4-12.3); Platelet Count 187 X10*3/uL (160-400); Red Cell Distribution Width 13.1 % (11.0-16.0); White Blood Count 8.7 X10*3/uL (4.8-10.8)
[2023-10-26 06:29] LABS: Anion Gap 16 (12-20); Blood Urea Nitrogen 27 mg/dL (9-16); Calcium 7.9 mg/dL (8.4-10.2); Carbon Dioxide 26 mmol/L (22-29); Chloride 108 mmol/L (96-108); Creatinine Clr Calc Pharmacy 62.9; Estimated Glomerular Filt Rate > 60; Glucose Fasting 114 mg/dL (60-99); Potassium 3.6 mmol/L (3.3-5.1); Sodium 146 mmol/L (135-145)
[2023-10-26 07:11] LABS: Glucose, Whole Blood 114 mg/dL (60-115)
[2023-10-26 07:23] VITALS: BP 136/78; PULSE 60; RESP 20; TEMP 36.1; O2SAT 99
--- NOTE | 2023-10-26 07:41 | PC.NURSE ---
Patient with c/o of headache. Medicated with 650 mg tylenol with good effect. OOB with walker and stand by assistance to bathroom. Dizziness improved per patient. 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 No signs of distress noted.
[2023-10-26 08:56] VITALS: BP 130/63
[2023-10-26] MEDS: amLODIPine Besylate 10 MG TABLET PO (08:56)
[2023-10-26] MEDS: Gabapentin 100 MG CAPSULE PO (08:56)
[2023-10-26 08:57] VITALS: BP 130/63
[2023-10-26] MEDS: hydroCHLOROthiazide 25 MG TABLET PO (08:57)
[2023-10-26] MEDS: Spironolactone 25 MG TABLET PO (08:57)
[2023-10-26] MEDS: Magnesium Oxide 400 MG TABLET PO (08:57)
[2023-10-26] MEDS: Cholecalciferol (Vitamin D3) 25 MCG TABLET 50 MCG PO (08:57)
[2023-10-26] MEDS: Aspirin Enteric Coated 81 MG TABLET.DR PO (08:57)
[2023-10-26] MEDS: Meclizine HCl 25 MG TABLET PO (08:57)
--- NOTE | 2023-10-26 09:49 | PM.DS ---
DS: Providers Provider Date of Service: 10/26/23 Date of admission: 10/21/23 17:32 Date of discharge: 10/26/23 Primary care physician: Yeni Willoughby MD Consults: 10/21/23 17:24 Consult to Neurology Routine Consulting Provider: [facility] Reason for consultation: Pt with dizziness, mild horizontal nystagus 10/21/23 17:50 Consult to General Surgery Routine Consulting Provider[place] [facility] Reason for consultation: CT of abd w/ enteritis vs internal hernia DS: Diagnosis Discharge Diagnosis (1) Dizziness: Status: Acute DS: Summary Hospital Course Hospital Course: from initial hpi: 58-year-old Angolan-speaking female with a PMH significant for HTN, HLD, [id number] type 2 diabetes, IBS, exocrine pancreatic insufficiency, and hypothyroidism?who presents to the ED with?multiple complaints including nausea, vomiting, diarrhea, abdominal pain, and dizziness. Patient was previously seen in the ED 4 days prior for similar complaints as well as right leg pain. DVT studies were negative at that time. Labs showed elevated potassium of 5.6 and elevated creatinine of 2.79 (up from 1.40). Patient received 2 L IVF but did now want to wait for repeat labs before going home. Pt states did well until this morning when she was outside sitting on her balcony smoking a cigarette and suddenly experienced dizziness that was so severe she was unable to stand or move and had to call for EMS to bring her to the hospital. Experiences dizziness at rest, though worsened with head movement or with standing. Patient is not a great historian and unable to clarify whether she lightheaded when like the room spinning. Also complains of some nausea, vomiting, diarrhea, and mild abdominal pain. Reports he has not been eating or drinking normally for the past few days. It is also felt overall weak. Denies experiencing vertigo in the past. No chest pain/pressure, palpitations. Denies fever, chills. In the ED pt was hypertensive up to 160/66. Labs were significant for leukocytosis of 12.6 (down from previous of 13.2 on 10/17/2023), otherwise grossly unremarkable and around baseline for patient. Stable H& H. No significant electrolyte abnormalities. Renal function back to baseline. Hepatic function WNL. Stool studies and C diff negative. CT of abdomen and pelvis found multiple fluid-filled thick-walled loops of jejunum, likely enteritis though internal hernia can not be ruled out. CT of head showed no acute intracranial hemorrhage or edematous territorial infarction. CTA of head showed no large vessel occlusion, saccular aneurysm, dissection, or high-grade stenosis intracranially. CTA of neck found no hemodynamically significant stenosis in the major arteries of the neck. EKG demonstrated sinus bradycardia of 50 without evidence of significant ST elevations or depressions. Pt was treated with metoclopramide, diphenhydramine, IVF, meclizine, and lorazepam. Pt will be admitted to the hospital for treatment and further evaluation of intractable dizziness and inability to ambulate, and intractable nausea and vomiting in the setting likely enteritis. hospital course: Patient was admitted for gastroenteritis. She was given antiemetics, Imodium, analgesics and nausea vomiting and diarrhea resolved. She is now tolerating solid diet. C diff and GI panel were negative. For dizziness/vertigo she was seen by Neurology felt this was secondary to her GI condition. Recommended meclizine as needed and rehab. Was seen by physical therapy recommended acute rehab to which patient will be discharged. Patient was incidentally noted to have bradycardia. diltiazem was changed to amlodipine and bradycardia resolved. For COPD she remained stable. For hypertension her lisinopril was held due to decreased intake, this could be restarted as needed. Her diltiazem was changed amlodipine as mentioned. For hyperlipidemia she was continue on statin. For diabetes she was continued on insulin sliding scale. For GERD she was continued on PPI. Time Attestation Discharge Coordination Time (in mins): 32 Quality: Safe Use of Opioids Does Pt have an Active Cancer Diagnosis on the Problem List?: No Quality: Stroke Does the patient have a stroke diagnosis?: No Physical Exam Vital Signs: Vital Signs: Last Vital Signs Temp 97.0 F 10/26/23 07:23 Pulse 60 10/26/23 07:23 Resp 20 10/26/23 07:23 BP 130/63 10/26/23 08:57 Pulse Ox 99 10/26/23 07:23 O2 Del Method Room Air 10/26/23 07:23 BMI result Body Mass Index 25.2 Appearance: Alert.? Oriented X3. Eyes: Pupils equal, round and reactive to light.? mucosa-moist cvs: rrr, [id number] res: air entry fair,no rales abd: bs present ,nd,nt. ext pulses present , no cyanosis neuro: axo3 , nonfocal. DS: Data Data Completed and Pending Labs on day of discharge: Laboratory Results - last 24 hr 10/25/23 10/25/23 10/25/23 10:56 16:25 20:02 WBC RBC Hgb Hct MCV MCH MCHC RDW Plt Count MPV Absolute Nucleated RBC Nucleated RBC % (auto) Sodium Potassium Chloride Carbon Dioxide Anion Gap BUN Creatinine Estim Creat Clear Calc Estimated GFR POC Glucose 75 141 H 125 H Fasting Glucose Calcium 10/26/23 10/26/23 05:35 06:55 WBC 8.7 RBC 3.80 L Hgb 10.9 L Hct 33.0 L MCV 86.8 MCH 28.7 MCHC 33.0 RDW 13.1 Plt Count 187 MPV 11.9 Absolute Nucleated RBC 0.000 Nucleated RBC % (auto) 0.0 Sodium 146 H Potassium 3.6 Chloride 108 Carbon Dioxide 26 Anion Gap 16 BUN 27 H Creatinine 0.89 Estim Creat Clear Calc 62.9 Estimated GFR > 60 POC Glucose 114 Fasting Glucose 114 H Calcium 7.9 L D Discharge Plan Discharge Anticipated Discharge Date/Time: 10/26/23 09:47 Patient Disposition: Xfer SNF Discharge Diagnosis: Enteritis, vertigo Referrals: Yeni Willoughby MD [Primary Care Provider] - 1 Week Discharge Medications: New meclizine 25 mg Tablet 25 mg PO TID Qty: 0 0RF amlodipine 10 mg Tablet 10 mg PO DAILY Qty: 0 0RF Protocol: Hold for SBP< HOLD for SBP < : 90 gabapentin 100 mg Capsule 100 mg PO TID Qty: 0 0RF Continued levothyroxine 125 mcg tablet 125 mcg PO DAILY@0600 spironolactone 25 mg tablet 25 mg PO DAILY dulaglutide 0.75 mg/0.5 mL pen injector 0.75 mg subcut QWEEK cholecalciferol (vitamin D3) 25 mcg (1,000 unit) tablet 50 mcg PO DAILY tiotropium bromide 18 mcg capsule, w/inhalation device 1 cap inhalation DAILY hydrochlorothiazide 25 mg tablet 25 mg PO DAILY montelukast 10 mg tablet 10 mg PO BEDTIME pravastatin 80 mg tablet 80 mg PO BEDTIME clonidine HCl 0.2 mg tablet 0.2 mg PO BEDTIME aspirin 81 mg tablet,delayed release (DR/EC) 81 mg PO DAILY (DME) lancets 33 gauge misc See Rx Instructions topical QID Qty: 100 Rx Instructions: As directed (DME) blood sugar diagnostic Strip See Rx Instructions Not Applicable QID Qty: 10 Rx Instructions: As directed metformin 500 mg tablet extended release 24 hr 1,000 mg PO BID fluticasone propion-salmeterol 250-50 mcg/dose blister with device 1 ea inhalation BID Advanced Probiotic-14 3 billion cell capsule 1 cap PO DAILY Qty: 30 6RF omeprazole 20 mg capsule,delayed release(DR/EC) 20 mg PO BID Qty: 60 6RF psyllium husk [Daily Fiber] 0.4 gram capsule 0.4 g PO BID Qty: 60 6RF magnesium oxide 400 mg (241.3 mg magnesium) tablet 400 mg PO BID Discontinued lisinopril 40 mg tablet 40 mg PO DAILY diltiazem HCl 360 mg capsule,extended release 24 hr 360 mg PO DAILY Discharge Orders: Discharge Order (Routine); Ordered 10/26/23 Ordered By: Frank Julian Diet: Advance to usual diet Activity on Discharge: As tolerated Stand Alone Forms: Patient Portal Discharge page Print Language: Bahamian Care Plan Goals: Recovery Health Concerns: Vertigo Plan of Treatment: Rehab, meclizine as needed Assessment: See above
--- NOTE | 2023-10-26 11:23 | MHC.CM.PN ---
Pt is medically cleared for discharge and [facility] auth obtained for pt to go to [facility] [place] [facility] [place] today. Pt will transport via [facility], [facility] transport auth received, run# [id number]. Second IMM given 10/25. Pt and family aware and in agreement with discharge plan.
[2023-10-26 11:27] LABS: Glucose, Whole Blood 76 mg/dL (60-115)
== END 2023-10-26 12:24 | disposition skilled nursing facility (03) | DRG 392 ==
LOC: HO.ED 15:30 → HO.EDOVER 17:32 → HO.IMC 10-22 19:38 → HO.EDOVER 10-22 19:54 → HO.IMC 10-23 08:19
PROVIDERS: Internal Medicine; Admitting Provider Student in an Organized Health Care Education/Training Program; Emergency Provider Emergency Medicine; PCP Family Medicine; Visit Provider Internal Medicine
DX: A08.4 Viral intestinal infection, unspecified (principal); L73.2 Hidradenitis suppurativa; G47.33 Obstructive sleep apnea (adult) (pediatric); F17.210 Nicotine dependence, cigarettes, uncomplicated; K21.9 Gastro-esophageal reflux disease without esophagitis; E03.9 Hypothyroidism, unspecified; R00.1 Bradycardia, unspecified; E11.9 Type 2 diabetes mellitus without complications; F39 Unspecified mood [affective] disorder; H55.09 Other forms of nystagmus; I10 Essential (primary) hypertension; E78.5 Hyperlipidemia, unspecified; Z20.822 Contact with and (suspected) exposure to COVID-19; Z71.6 Tobacco abuse counseling; Z79.51 Long term (current) use of inhaled steroids; Z79.82 Long term (current) use of aspirin; Z79.84 Long term (current) use of oral hypoglycemic drugs; Z79.890 Hormone replacement therapy; Z79.899 Other long term (current) drug therapy
CPT/HCPCS: 0241U; 36415; 70496; 70498; 74176; 80048; 80053; 81003; 82550; 82947; 83690; 84132; 84439; 85025; 85027; 87493; 87507; 93005; 95992; 97116; 97162; 97166; 97535; 99285; J1200; J1650; J2060; J2765; J7120; Q9967

== ENCOUNTER → 2023-10-21 10:14 | Outpatient (BNV) | payer OTHER, SELFPAY | PROVIDERS: Emergency Provider Emergency Medicine; PCP Family Medicine; Visit Provider Surgery | DX: R11.2 Nausea with vomiting, unspecified (principal); R10.84 Generalized abdominal pain | CPT/HCPCS: 99284 ==

== ENCOUNTER → 2023-10-21 17:32 | Outpatient (BNV) | payer OTHER, SELFPAY | PROVIDERS: Admitting Provider Student in an Organized Health Care Education/Training Program; Emergency Provider Emergency Medicine; PCP Family Medicine; Visit Provider Psychiatry & Neurology Neurology | DX: R42 Dizziness and giddiness (principal) | CPT/HCPCS: 99222 ==

== ENCOUNTER → 2023-10-21 17:32 | Outpatient (BNV) | payer OTHER, SELFPAY | PROVIDERS: Admitting Provider Student in an Organized Health Care Education/Training Program; Emergency Provider Emergency Medicine; PCP Family Medicine; Visit Provider Student in an Organized Health Care Education/Training Program | DX: R42 Dizziness and giddiness (principal) | CPT/HCPCS: 99223; 99231; 99232; 99239 ==

== ENCOUNTER 2023-11-22 10:13 | Outpatient (REF) | payer OTHER, SELFPAY ==
[2023-11-22 11:44] LABS: Alanine Aminotransferase 9 U/L (0-31); Alkaline Phosphatase 70 U/L (39-117); Anion Gap 12 (12-20); Aspartate Amino Transferase 13 U/L (5-31); Bilirubin Total 0.6 mg/dL (0.0-1.0); Blood Urea Nitrogen 17 mg/dL (9-16); Calcium 7.6 mg/dL (8.4-10.2); Carbon Dioxide 30 mmol/L (22-29); Chloride 106 mmol/L (96-108); Estimated Glomerular Filt Rate 59; Glucose Random 99 mg/dL (60-115); Potassium 3.7 mmol/L (3.3-5.1); Sodium 144 mmol/L (135-145); Total Protein 7.7 g/dL (6.5-8.0)
[2023-11-22 11:54] LABS: Free T4 (Free Thyroxine) 1.54 ng/dL (0.71-1.85)
[2023-11-22 12:02] LABS: Thyroid Stimulating Hormone 0.02 uIU/mL (0.32-4.0)
[2023-11-22 12:19] LABS: Magnesium 0.7 mg/dL (1.6-2.6)
== END 2023-11-22 10:14 | disposition home or self-care (01) ==
LOC: HO.HHCL 10:13
PROVIDERS: Referring Provider Nurse Practitioner Primary Care; Visit Provider Family Medicine
DX: E83.42 Hypomagnesemia (principal); I10 Essential (primary) hypertension; E89.0 Postprocedural hypothyroidism
CPT/HCPCS: 36415; 80053; 83735; 84439; 84443

== ENCOUNTER 2023-12-29 15:06 | Outpatient (REF) | payer OTHER, SELFPAY | END 2023-12-29 15:07 | disposition home or self-care (01) | LOC: HO.HHCL 15:06 | PROVIDERS: Visit Provider Family Medicine | DX: Z13.89 Encounter for screening for other disorder (principal) | CPT/HCPCS: 36415 ==

== ENCOUNTER 2024-01-12 11:53 | Outpatient (REF) | payer OTHER, SELFPAY ==
[2024-01-12 13:56] LABS: Anion Gap 10 (12-20); Blood Urea Nitrogen 20 mg/dL (9-16); Calcium 9.3 mg/dL (8.4-10.2); Carbon Dioxide 29 mmol/L (22-29); Chloride 106 mmol/L (96-108); Estimated Glomerular Filt Rate 57; Free T4 (Free Thyroxine) 1.32 ng/dL (0.71-1.85); Glucose Random 97 mg/dL (60-115); Potassium 4.1 mmol/L (3.3-5.1); Sodium 141 mmol/L (135-145); Thyroid Stimulating Hormone 0.05 uIU/mL (0.32-4.0)
[2024-01-12 14:14] LABS: Magnesium 1.3 mg/dL (1.6-2.6)
== END 2024-01-12 11:54 | disposition home or self-care (01) ==
LOC: HO.HHCL 11:53
PROVIDERS: Visit Provider Family Medicine
DX: E83.42 Hypomagnesemia (principal); E83.51 Hypocalcemia
CPT/HCPCS: 36415; 80048; 83735; 84439; 84443

== ENCOUNTER 2024-01-30 10:17 | Outpatient (REF) | payer OTHER, SELFPAY ==
[2024-01-30 12:31] LABS: Anion Gap 14 (12-20); Blood Urea Nitrogen 21 mg/dL (9-16); Calcium 10.2 mg/dL (8.4-10.2); Carbon Dioxide 24 mmol/L (22-29); Chloride 106 mmol/L (96-108); Estimated Glomerular Filt Rate 43; Free T4 (Free Thyroxine) 1.38 ng/dL (0.71-1.85); Glucose Random 124 mg/dL (60-115); Magnesium 2.3 mg/dL (1.6-2.6); Potassium 5.2 mmol/L (3.3-5.1); Sodium 139 mmol/L (135-145); Thyroid Stimulating Hormone 0.24 uIU/mL (0.32-4.0)
== END 2024-01-30 10:18 | disposition home or self-care (01) ==
LOC: HO.HHCL 10:17
PROVIDERS: Visit Provider Student in an Organized Health Care Education/Training Program
DX: E89.0 Postprocedural hypothyroidism (principal); E83.42 Hypomagnesemia
CPT/HCPCS: 36415; 80048; 83735; 84439; 84443

== ENCOUNTER 2024-02-06 12:04 | Outpatient (REF) | payer OTHER, SELFPAY ==
[2024-02-06 13:32] LABS: Anion Gap 15 (12-20); Blood Urea Nitrogen 26 mg/dL (9-16); Calcium 10.4 mg/dL (8.4-10.2); Carbon Dioxide 27 mmol/L (22-29); Chloride 104 mmol/L (96-108); Estimated Glomerular Filt Rate 43; Glucose Random 90 mg/dL (60-115); Magnesium 2.2 mg/dL (1.6-2.6); Potassium 5.5 mmol/L (3.3-5.1); Sodium 140 mmol/L (135-145)
[2024-02-06 13:52] LABS: TSH reflex Free T4 0.06 uIU/mL (0.32-4.0)
[2024-02-06 14:40] LABS: Free T4 (Free Thyroxine) 1.26 ng/dL (0.71-1.85)
== END 2024-02-06 12:05 | disposition home or self-care (01) ==
LOC: HO.HHCL 12:04
PROVIDERS: Nurse Practitioner Primary Care; Visit Provider Student in an Organized Health Care Education/Training Program
DX: E83.51 Hypocalcemia (principal); E83.42 Hypomagnesemia; E89.0 Postprocedural hypothyroidism; E87.5 Hyperkalemia
CPT/HCPCS: 36415; 80048; 83735; 84439; 84443

== ENCOUNTER 2024-02-08 09:50 | Outpatient (AMB) | payer OTHER, SELFPAY ==
[2024-02-08 09:52] VITALS: BP 104/78; PULSE 92; BMI 26.7
--- NOTE | 2024-02-08 09:52 | A.OFFVIS_ITS ---
Vital Signs 3 02/08/24 09:52 Height 5 ft 4 in Weight 155 lb 6.814 oz BMI 26.7 BP 104/78 Blood Pressure Location Lt brachial Position Sitting Pulse 92 Pulse Source Pulse Oximeter Intake Visit Reasons: Hypothyroidism Intake Note: New patient present today for Hypothyroidism office visit. Radio Interference Trouble Shooter Required: Yes Radio Interference Trouble Shooter Language: Graphic Art Technician Services: Radio Interference Trouble Shooter Present Radio Interference Trouble Shooter Name: Jennifer Information Interpreted: non-clinical & clinical Accompanied by: Self / Same As Patient Allergies sulfamethoxazole [From Bactrim] Allergy (Severe, Verified 02/08/24 09:55) Itching trimethoprim [From Bactrim] Allergy (Severe, Verified 02/08/24 09:55) Itching codeine [Codeine] Allergy (Intermediate, Verified 02/08/24 09:55) NAUSEA & VOMITING, vomiting fluoxetine [FLUOXETINE] Allergy (Intermediate, Verified 02/08/24 09:55) NAUSEA & VOMITING ibuprofen [IBUPROFEN] Allergy (Intermediate, Verified 02/08/24 09:55) NAUSEA & VOMITING Sulfa (Sulfonamide Antibiotics) Allergy (Mild, Verified 02/08/24 09:55) itching Medication List - Last Reconciled 02/08/24 by Una Mccracken MD amlodipine 10 mg See Protocol PO DAILY aspirin 81 mg PO DAILY blood sugar diagnostic As directed cholecalciferol (vitamin D3) 50 mcg PO DAILY clonidine HCl 0.2 mg PO BEDTIME dulaglutide 0.75 mg subcut QWEEK fluticasone propion-salmeterol 250-50 mcg/dose 1 ea inhalation BID gabapentin 100 mg PO TID hydrochlorothiazide 25 mg PO DAILY Lactobac 66-Bifido 4-S.thermo 3 billion cell (Advanced Probiotic-14) 1 cap PO DAILY lancets As directed levothyroxine 100 mcg PO DAILY magnesium oxide 400 mg PO BID meclizine 25 mg PO TID metformin ER 1,000 mg PO BID montelukast 10 mg PO BEDTIME omeprazole 20 mg PO BID pravastatin 80 mg PO BEDTIME psyllium husk (Daily Fiber) 0.4 grams PO BID spironolactone 25 mg PO DAILY tiotropium bromide 1 cap inhalation DAILY HPI Comments Details: 58-year-old female coming in today for initial evaluation of hypothyroidism. Patient has history of Graves disease status post radioactive iodine ablation in 2009 now with postablative hypothyroidism. Over the past year in 2023 patient has had consistently low TSH levels ranging anywhere from 0.02-0.24. Most recent labs 02/06/2024 show TSH low at 0.06, free T4 normal at 1.26. Dose of levothyroxine has been reduced consistently but TSH remains low. Currently patient is taking 100 mcg levothyroxine daily. Dose was confirmed by calling the patient's pharmacy during this appointment. Call with patient's pharmacy: Currently has a prescription for 88 mcg daily , not picked up yet 01/12/24 picked up levothyroxine 100mcg daily 11/22/23 picked up levothyroxine 112 mcg daily 10/19/23 picked up levothyroxine 125 mcg daily 05/02/23 big the levothyroxine 137 mcg daily She also has Graves orbitopathy, says she was discharged from the [facility], has seen Dr Lucio Herbert in the past, was advised surgery , she is interested in getting evaluated for Tepezza, has a lot of teariness referring her again. Reports hair loss, fatigue. Patient currently denies heat or cold intolerance, diarrhea or constipation, , palpitation, anxiety, weight changes, mood changes, tremors, increased diaphoresis or dry skin. ?Lost 10 lbs in the past year on Trulicity. Patient denies any difficulty swallowing, pain on swallowing or voice changes or difficulty breathing. Patient denies any history of childhood neck radiation. Denies having ever used lithium, amiodarone or biotin supplements. Patient denies any family history of thyroid cancer. Graves disease in cousin. Physical exam General: sitting comfortably in no acute distress HEENT: normocephalic/atraumatic, EOM intact, exophthalmos noted, very teary eyes Neck: supple, symmetrical, no thyromegaly , no dorsocervical or supraclavicular fat pads Cardiac: normal heart sounds Pulm: normal breath sounds B/L, no added breath sounds Abd: not distended, no tenderness Extremities: no edema, no signs of myxedema Neuro: AAO x3, Speech: normal, no facial droop, moving all 4 extremities Laboratory Tests 05/25/23 06/21/23 09/22/23 10:30 11:29 11:11 TSH 0.06 L 0.05 L 0.06 L Free T4 1.43 1.31 1.41 10/21/23 11/22/23 01/12/24 10:23 10:18 11:55 TSH 0.02 L 0.05 L Free T4 1.28 1.54 1.32 01/30/24 02/06/24 10:20 12:07 TSH 0.24 L 0.06 L Free T4 1.38 1.26 [facility] Medical History Transaminitis History of Graves' disease Pilonidal cyst Substance abuse [place] (obstructive sleep apnea) Nicotine dependence, cigarettes, uncomplicated History of abnormal mammogram Hidradenitis suppurativa Hyperlipidemia Hypertension Surgical History Hx of cataract surgery History of colonoscopy (~2013) History of bunionectomy (~2011) History of axillary surgery (~2013) History of cholecystectomy History of umbilical hernia repair (~2016) Family History Paternal Aunt Breast cancer Mother Cancer of mandible Other [place] (obstructive sleep apnea) Social History Household Members: Children Housing: Apartment Do you presently have visiting nurse or other home services: No Alcohol intake: current Alcohol intake frequency: does not drink Patient Tobacco Use Status: Current everyday Tobacco user Tobacco use type: Cigarette Cigarette Packs Per Day: 0.75 Cigarettes Per Day: 15 Years Smoked: 36 (onset age 19) Substance Use Type: Crack/Cocaine service: No Current occupational status: unemployed Female Reproductive History Menstrual Age of Menarche: 9 Physical Exam Vital Signs: Last Vital Signs Pulse 92 02/08/24 09:52 BP 104/78 02/08/24 09:52 BMI result Body Mass Index 26.7 Assessment & Plan Assessment & Plan (1) Hypothyroid: Code(s): E03.9 - Hypothyroidism, unspecified Category: Medical Qualifiers: Hypothyroidism type: postablative Qualified Code(s): E89.0 - Postprocedural hypothyroidism Plan: 58-year-old female with past medical history significant for Graves disease status post radioactive iodine ablation in 2009 who is being managed for postablative hypothyroidism. Over the past year her dose of levothyroxine has been reduced consistently however TSH remains low. Patient was started on 100 mcg levothyroxine daily down from 125 mcg daily about 4 weeks ago on 01/12/2024. Most recent labs from 02/06/2024 show TSH low at 0.06, free T4 normal at 1.26. Since it has only been 4 weeks since the last dose change I will give her a full 6 weeks to see what her TSH and free T4 does in the 100 mcg daily. Her weight based dose is close to 112 mcg daily. Plan: -ordered TSH, free T4 to be done in 2 weeks -continue levothyroxine 100 mcg daily -follow up in 6 weeks -we will also recheck TSI, trap antibody levels, could she possibly be having a recurrence of hyperthyroidism (2) Graves' eye disease: Code(s): E05.00 - Thyrotoxicosis with diffuse goiter without thyrotoxic crisis or storm Category: Medical Plan: Patient also has Graves Graves eye disease.Per my examination she has moderate to severe grade thyroid eye disease, with a clinical activity score of at least least 2. She is interested in getting evaluated for tip has a. She has seen Dr. Herbert in the past and says was advised reconstructive surgery where she does not want surgery. She is interested in medical management. We will send a referral back to Dr. Herbert's office. Plan I spent 45 minutes in reviewing the record, seeing the patient and documenting in the medical record. Orders: Orders 2 Thyroid Stimulating Hormone Today E05.00 - Thyrotoxicosis with diffuse goiter without thyrotoxic crisis or storm, E89.0 - Postprocedural hypothyroidism Thyroid Peroxidase Antibodies Today E05.00 - Thyrotoxicosis with diffuse goiter without thyrotoxic crisis or storm, E89.0 - Postprocedural hypothyroidism Triiodothyronine T3 Total Today E05.00 - Thyrotoxicosis with diffuse goiter without thyrotoxic crisis or storm, E89.0 - Postprocedural hypothyroidism Free T4 (Free Thyroxine) Today E05.00 - Thyrotoxicosis with diffuse goiter without thyrotoxic crisis or storm, E89.0 - Postprocedural hypothyroidism Thyrotropin Receptor Antibody 1 Week E89.0 - Postprocedural hypothyroidism Thyroid Stimulating Immunoglob Today E05.00 - Thyrotoxicosis with diffuse goiter without thyrotoxic crisis or storm, E89.0 - Postprocedural hypothyroidism Thyrotropin Receptor Antibody Today E05.00 - Thyrotoxicosis with diffuse goiter without thyrotoxic crisis or storm, E89.0 - Postprocedural hypothyroidism Thyroid Stimulating Hormone 1 Week E89.0 - Postprocedural hypothyroidism Thyroid Stimulating Immunoglob 1 Week E89.0 - Postprocedural hypothyroidism Free T4 (Free Thyroxine) 1 Week E89.0 - Postprocedural hypothyroidism Triiodothyronine T3 Total 1 Week E89.0 - Postprocedural hypothyroidism Referrals 2 Ophthalmology Referral E05.00 - Thyrotoxicosis with diffuse goiter without thyrotoxic crisis or storm Medications: New 2 levothyroxine 100 mcg PO DAILY 30 tabs 3RF Patient Instructions: Call Dr. Herbert's office for appointment Continue levothyroxine 100 mcg daily Do blood work in about 2 weeks Follow up in 4 weeks Llame al consultorio del Dr. Herbert para programar tino tim. Continuar con levotiroxina 100 mcg al d?a. Hacer an?lisis de kiara en aproximadamente 2 semanas. Seguimiento en 4 semanas. Coding Level of Care Code New Pt Level 4 (51351) Diagnoses Postablative hypothyroidism E89.0 Hypothyroidism type: postablative Graves' eye disease E05.00 Time Spent (min) 45
== END 2024-02-08 10:51 | disposition home or self-care (01) ==
PROVIDERS: PCP Family Medicine; Visit Provider Student in an Organized Health Care Education/Training Program
DX: E89.0 Postprocedural hypothyroidism (principal); E05.00 Thyrotoxicosis with diffuse goiter without thyrotoxic crisis or storm
CPT/HCPCS: 99204

== ENCOUNTER → 2024-02-08 09:50 | Outpatient (BNVA) | payer OTHER, SELFPAY | PROVIDERS: PCP Family Medicine; Visit Provider Student in an Organized Health Care Education/Training Program | DX: E89.0 Postprocedural hypothyroidism (principal); E05.00 Thyrotoxicosis with diffuse goiter without thyrotoxic crisis or storm | CPT/HCPCS: 99202 ==

== ENCOUNTER 2024-02-13 09:59 | Outpatient (REF) | payer OTHER, SELFPAY ==
[2024-02-13 11:04] LABS: MANUAL DIFF FLAG NO
[2024-02-13 11:15] LABS: Basophils Absolute Auto 0.1 X10*3/uL (0.0-0.2); Basophils Percent Auto 0.7 % (0-2); Eosinophils Absolute Auto 0.4 X10*3/uL (0.0-0.4); Eosinophils Percent Auto 4.4 % (0-4); Hematocrit 37.7 % (37.0-47.0); Hemoglobin 11.8 g/dl (12.0-16.0); Imm Gran Abs Auto 0.06 X10*3/uL (0.00-0.03); Imm Gran Pct Auto 0.6 % (0.0-0.4); Lymphocytes Absolute Auto 3.1 X10*3/uL (1.2-4.9); Lymphocytes Percent Auto 30.8 % (20-40); Mean Corpuscular HGB Conc 31.3 g/dl (31.0-35.0); Mean Corpuscular Hemoglobin 28.9 pg (27.0-33.0); Mean Corpuscular Volume 92.2 fL (80.0-98.0); Mean Platelet Volume 11.6 fL (9.4-12.3); Monocytes Absolute Auto 0.4 X10*3/uL (0.1-1.2); Monocytes Percent Auto 4.1 % (2-11); Neutrophils Percent Auto 59.4 % (45-73); Platelet Count 258 X10*3/uL (160-400); Red Blood Count 4.09 X10*6/uL (4.20-5.50); Red Cell Distribution Width 12.7 % (11.0-16.0)
[2024-02-13 11:35] LABS: Alanine Aminotransferase 23 U/L (0-31); Albumin Level 3.9 g/dL (3.5-5.0); Alkaline Phosphatase 67 U/L (39-117); Anion Gap 12 (12-20); Aspartate Amino Transferase 22 U/L (5-31); Bilirubin Total 0.5 mg/dL (0.0-1.0); Blood Urea Nitrogen 29 mg/dL (9-16); Calcium 9.2 mg/dL (8.4-10.2); Carbon Dioxide 24 mmol/L (22-29); Chloride 107 mmol/L (96-108); Estimated Glomerular Filt Rate 55; Glucose Random 87 mg/dL (60-115); Potassium 4.9 mmol/L (3.3-5.1); Sodium 138 mmol/L (135-145); Total Protein 7.6 g/dL (6.5-8.0)
[2024-02-13 11:47] LABS: Vitamin D 25-OH Total 43.6 ng/mL (>30)
[2024-02-13 11:54] LABS: Free T4 (Free Thyroxine) 1.37 ng/dL (0.71-1.85); Thyroid Stimulating Hormone 0.12 uIU/mL (0.32-4.0)
[2024-02-13 11:55] LABS: HBsAGNum1 0.33 S/CO (0.00-0.99); Hepatitis B Surface Antigen Negative (Negative); ~HepC Num1 0.07 S/CO (0.00-0.79); ~Hepatitis C Antibody Nonreactive (Nonreactive)
[2024-02-14 07:43] LABS: Triiodothyronine T3 Total 99 ng/dL (76-181)
[2024-02-14 08:33] LABS: Thyroid Peroxidase Antibodies 1 IU/mL (<9)
[2024-02-16 11:50] LABS: Cystatin C 1.99 (H)
[2024-02-16 11:51] LABS: eGFR (Cystatin C) 29 (L)
[2024-02-16 17:48] LABS: Thyroid Stimulating Immunoglob 337 % baseline (<140)
[2024-02-17 20:29] LABS: Thyrotropin Receptor Antibody 16.19 IU/L (<=2.00)
== END 2024-02-13 10:00 | disposition home or self-care (01) ==
LOC: HO.HHCL 09:59
PROVIDERS: Student in an Organized Health Care Education/Training Program; Visit Provider Family Medicine
DX: E83.42 Hypomagnesemia (principal); E05.00 Thyrotoxicosis with diffuse goiter without thyrotoxic crisis or storm; E89.0 Postprocedural hypothyroidism; K76.0 Fatty (change of) liver, not elsewhere classified; Z11.3 Encounter for screening for infections with a predominantly sexual mode of transmission; N17.9 Acute kidney failure, unspecified
CPT/HCPCS: 36415; 80053; 82306; 82610; 83520; 83735; 84439; 84443; 84445; 84480; 85025; 86376; 86803; 87340

== ENCOUNTER 2024-02-19 10:45 | Outpatient (REF) | payer OTHER, SELFPAY ==
[2024-02-19 14:31] LABS: Creatinine Urine 128.57 mg/dL; Microalbum/Creatinine Ratio Ur 10.8 ug/mg cr (<30)
== END 2024-02-19 10:46 | disposition home or self-care (01) ==
LOC: HO.HHCL 10:45
PROVIDERS: Visit Provider Family Medicine
DX: N17.9 Acute kidney failure, unspecified (principal)
CPT/HCPCS: 82043; 82570

== ENCOUNTER 2024-03-19 09:15 | Outpatient (AMB) | payer OTHER, SELFPAY ==
[2024-03-19 09:17] VITALS: BP 104/72; PULSE 61; BMI 26.6
--- NOTE | 2024-03-19 09:17 | MHC.OFFVIS ---
Vital Signs 03/19/24 09:17 Height 5 ft 4 in Weight 154 lb 15.759 oz BMI 26.6 BP 104/72 Blood Pressure Location Lt brachial Position Sitting Pulse 61 Pulse Source Pulse Oximeter Intake Visit Reasons: Hypothyroidism Intake Note: Patient present today for Hypothyroidism. Corporate Banking Officer Required: Yes Corporate Banking Officer Language: Digital Media Director Services: Corporate Banking Officer Present Corporate Banking Officer Name: Vicente [id number] Information Interpreted: non-clinical & clinical Accompanied by: Self / Same As Patient Allergies sulfamethoxazole [From Bactrim] Allergy (Severe, Verified 03/19/24 09:28) Itching trimethoprim [From Bactrim] Allergy (Severe, Verified 03/19/24 09:28) Itching codeine [Codeine] Allergy (Intermediate, Verified 03/19/24 09:28) NAUSEA & VOMITING, vomiting fluoxetine [FLUOXETINE] Allergy (Intermediate, Verified 03/19/24 09:28) NAUSEA & VOMITING ibuprofen [IBUPROFEN] Allergy (Intermediate, Verified 03/19/24 09:28) NAUSEA & VOMITING Sulfa (Sulfonamide Antibiotics) Allergy (Mild, Verified 03/19/24 09:28) itching Medication List - Last Reconciled 03/19/24 by Una Mccracken MD amlodipine 10 mg See Protocol PO DAILY aspirin 81 mg PO DAILY blood sugar diagnostic As directed cholecalciferol (vitamin D3) 50 mcg PO DAILY clonidine HCl 0.2 mg PO BEDTIME dulaglutide 0.75 mg subcut QWEEK fluticasone propion-salmeterol 250-50 mcg/dose 1 ea inhalation BID gabapentin 100 mg PO TID hydrochlorothiazide 25 mg PO DAILY Lactobac 66-Bifido 4-S.thermo 3 billion cell (Advanced Probiotic-14) 1 cap PO QAM lancets As directed levothyroxine 88 mcg PO DAILY magnesium oxide 400 mg PO BID meclizine 25 mg PO TID metformin ER 1,000 mg PO BID montelukast 10 mg PO BEDTIME omeprazole 20 mg PO BID pravastatin 80 mg PO BEDTIME psyllium husk (Daily Fiber) 0.4 grams PO BID spironolactone 25 mg PO DAILY tiotropium bromide 1 cap inhalation DAILY HPI Comments Details: 58-year-old female coming in today for follow up of of hypothyroidism. Patient has history of Graves disease status post radioactive iodine ablation in 2009 now with postablative hypothyroidism. Over the past year in 2023 patient has had consistently low TSH levels ranging anywhere from 0.02-0.24. labs 02/06/2024 show TSH low at 0.06, free T4 normal at 1.26. Dose of levothyroxine has been reduced consistently but TSH remains low. Call with patient's pharmacy: Currently has a prescription for 88 mcg daily , not picked up yet 01/12/24 picked up levothyroxine 100mcg daily 11/22/23 picked up levothyroxine 112 mcg daily 10/19/23 picked up levothyroxine 125 mcg daily 05/02/23 big the levothyroxine 137 mcg daily Interval history Labs 02/13/2024 showed TSH low at 0.12, free T4 1.37, total T3 99, TSI antibodies elevated at 337, TSH receptor antibody also elevated at 16.19 . 02/19/24: Dose of levothyroxine reduced from 100 mcg daily to 88 mcg daily She also has Graves orbitopathy, says she was discharged from the [facility], has seen Dr Lucio Herbert in the past, was advised surgery , she is interested in getting evaluated for Tepezza, has a lot of teariness we referred her again , she met with Dr. Herbert 01/2024, they have called her back for 1 year follow up, she is not sure why she was not a candidate for Tapazole. I will obtain records. Reports hair loss, fatigue. Patient currently denies heat or cold intolerance, diarrhea or constipation, , palpitation, anxiety, weight changes, mood changes, tremors, increased diaphoresis or dry skin. ?Lost 10 lbs in the past year on Trulicity. Patient denies any difficulty swallowing, pain on swallowing or voice changes or difficulty breathing. Patient denies any history of childhood neck radiation. Denies having ever used lithium, amiodarone or biotin supplements. Patient denies any family history of thyroid cancer. Graves disease in cousin. Physical exam General: sitting comfortably in no acute distress HEENT: normocephalic/atraumatic, EOM intact, exophthalmos noted, very teary eyes Neck: supple, symmetrical, no thyromegaly , no dorsocervical or supraclavicular fat pads Cardiac: normal heart sounds Pulm: normal breath sounds B/L, no added breath sounds Abd: not distended, no tenderness Extremities: no edema, no signs of myxedema Neuro: AAO x3, Speech: normal, no facial droop, moving all 4 extremities Laboratory Tests 05/25/23 06/21/23 09/22/23 10:30 11:29 11:11 TSH 0.06 L 0.05 L 0.06 L Free T4 1.43 1.31 1.41 10/21/23 11/22/23 01/12/24 10:23 10:18 11:55 TSH 0.02 L 0.05 L Free T4 1.28 1.54 1.32 01/30/24 02/06/24 10:20 12:07 TSH 0.24 L 0.06 L Free T4 1.38 1.26 Laboratory Tests 01/30/24 02/06/24 02/13/24 10:20 12:07 10:03 TSH 0.24 L 0.06 L 0.12 L Free T4 1.38 1.26 1.37 Total T3 99 Thyroid Stim Immunoglob 337 H TSH Receptor Ab 16.19 H PFS Medical History (Updated 02/08/24 @ 10:17 by Una Mccracken MD) Graves' eye disease Transaminitis History of Graves' disease Pilonidal cyst Substance abuse [place] (obstructive sleep apnea) Nicotine dependence, cigarettes, uncomplicated History of abnormal mammogram Hidradenitis suppurativa Hyperlipidemia Hypertension Surgical History Hx of cataract surgery History of colonoscopy (~2013) History of bunionectomy (~2011) History of axillary surgery (~2013) History of cholecystectomy History of umbilical hernia repair (~2016) Family History Paternal Aunt Breast cancer Mother Cancer of mandible Other [place] (obstructive sleep apnea) Social History Household Members: Children Housing: Apartment Do you presently have visiting nurse or other home services: No Alcohol intake: current Alcohol intake frequency: does not drink Patient Tobacco Use Status: Current everyday Tobacco user Tobacco use type: Cigarette Cigarette Packs Per Day: 0.75 Cigarettes Per Day: 15 Years Smoked: 36 (onset age 19) Substance Use Type: Crack/Cocaine service: No Current occupational status: unemployed Female Reproductive History Menstrual Age of Menarche: 9 Physical Exam Vital Signs: Last Vital Signs Pulse 61 03/19/24 09:17 BP 104/72 03/19/24 09:17 BMI result Body Mass Index 26.6 Assessment & Plan Assessment & Plan (1) Hypothyroid: Code(s): E03.9 - Hypothyroidism, unspecified Category: Medical Qualifiers: Hypothyroidism type: postablative Qualified Code(s): E89.0 - Postprocedural hypothyroidism Plan: 58-year-old female with past medical history significant for Graves disease status post radioactive iodine ablation in 2009 who is being managed for postablative hypothyroidism. Over the past year her dose of levothyroxine has been reduced consistently however TSH remains low. Patient was started on 100 mcg levothyroxine daily down from 125 mcg daily on 01/12/2024. labs from 02/06/2024 show TSH low at 0.06, free T4 normal at 1.26. Her weight based dose is close to 112 mcg daily. Labs 02/13/2024 showed TSH low at 0.12, free T4 1.37, total T3 99, TSI antibodies elevated at 337, TSH receptor antibody also elevated at 16.19 02/19/24: Dose of levothyroxine reduced from 100 mcg daily to 88 mcg daily At this point I am unsure whether she is requiring dose reduction because she is losing weight on Trulicity, though she has not had much weight loss since her past visit her weight has been stable. Or is she having a recurrence of Graves disease. I will repeat labs today to see if she needs down titration of her levothyroxine. Plan: -ordered TSH, free T4 total T3 to be done today. -continue levothyroxine 88 mcg daily -follow up in 3 months (2) Graves' eye disease: Code(s): E05.00 - Thyrotoxicosis with diffuse goiter without thyrotoxic crisis or storm Category: Medical Plan: Patient also has Graves Graves eye disease.Per my examination she has moderate to severe grade thyroid eye disease, with a clinical activity score of at least least 2. She is interested in getting evaluated for tip has a. She has seen Dr. Herbert in the past and says was advised reconstructive surgery where she does not want surgery. She is interested in medical management. We sent referral to Dr. Mary Kate vega office in January 2024 and patient states she had an appointment in now has 1 year follow up for plan. We will obtain records. Plan: Obtain ophthalmology records Plan I spent 30 minutes in reviewing the record, seeing the patient and documenting in the medical record. Orders: Orders Thyroid Stimulating Hormone Today E05.00 - Thyrotoxicosis with diffuse goiter without thyrotoxic crisis or storm, E89.0 - Postprocedural hypothyroidism Free T4 (Free Thyroxine) Today E05.00 - Thyrotoxicosis with diffuse goiter without thyrotoxic crisis or storm, E89.0 - Postprocedural hypothyroidism Triiodothyronine T3 Total Today E05.00 - Thyrotoxicosis with diffuse goiter without thyrotoxic crisis or storm, E89.0 - Postprocedural hypothyroidism Coding Level of Care Code Est Pt Level 4 (28159) Diagnoses Postablative hypothyroidism E89.0 Hypothyroidism type: postablative Graves' eye disease E05.00 Time Spent (min) 30
== END 2024-03-19 09:55 | disposition home or self-care (01) ==
PROVIDERS: PCP Family Medicine; Visit Provider Student in an Organized Health Care Education/Training Program
DX: E89.0 Postprocedural hypothyroidism (principal); E05.00 Thyrotoxicosis with diffuse goiter without thyrotoxic crisis or storm
CPT/HCPCS: 99214

== ENCOUNTER 2024-03-19 09:15 | Outpatient (REF) | payer OTHER, SELFPAY ==
--- OUTSIDE RECORDS SUMMARY | 2024-03-19 11:25 | XMS_ITS | Encounter Summary ---
Author Organization [employer] Address [address] [place] [address] Care Team Providers Care Control Manager Name Role Phone Yeni Willoughby MD Primary Care Provider [phone] Quoc Bermudez PharmD Unavailable [phone] Encounter Details Date Type Department Care Team ([facility] st Contact Info) Description 06/03/2022 Orders Only [facility] MEDICINE [address] [place], [place] [phone] Yeni Willoughby MD [address] [place] [address] Hypomagnesemia (Primary Dx); Lesion of parotid gland; Lymphadenopathy of left cervical region Social History Tobacco Use Types Packs/Day Years Used Date Smoking Tobacco: Every Day Cigarettes 0.5 30 Passive Smoke Exposure: Current Smokeless Tobacco: Never Alcohol Use Standard Drinks/Week Comments Not Currently 0 (1 standard drink = 0.6 oz pur e alcohol) Depression Answer Date Recorded Patient Health Questionnaire-9 Score 3 06/01/2022 Depression Answer Date Recorded Patient Health Questionnaire-2 Score 2 06/01/2022 Comments Unknown Sex and Gender Information Value Date Recorded Sex Assigned at Female 12/27/2021 10:14 AM EDT Legal Sex Female 10:14 AM EDT Gender Identity Female 12/27/2021 10:14 AM EDT Sexual Orientation Straight 12/27/2021 10 :14 AM EDT COVID-19 Exposure Response Date Recorded In the last 10 days, have yo u been in contact with someone who was confirmed or suspected to have Coronavirus/COVID-19? No / Unsure 06/01/2022 10:48 AM EDT documented as of this encounter Plan of Treatment Upcoming Encounters Date Type Department Care Team (Late st Contact Info) Description 03/27/2024 10:30 AM EST Medication Management [facility] MEDICINE [address] [place] [address] Quoc Bermudez, Shannen [address] [place] [address] 04/23/2024 11:15 AM EST Office Visit [facility] MEDICINE [address] [place] [address] Yeni Willoughby MD [address] [place] [address] 08/20/2024 1:00 PM EDT Office Visit [facility] ADULT DENTAL [address] [place] [address] ParvinCrystal [address] [place] [address] documented as of this encounter Goals Goal Patient Goal Type Associated Problems Recent Progress Patient-Stated? Author Blood Pressure < 140/90 Blood Pressure 122/70( 024 11:17 AM EST) No Quoc Bermudez, Shannen documented as of this encounter Visit Diagnoses Diagnosis Hypomagnesemia- Primary Disorders of magnesium metabolism Lesion of parotid gland Lymphadenopathy of left cervical region documented in this encounter Additional Health Concerns Assessment Noted Time PHQ-9 Depression Total Score: 3 06/02/19 23 11:01 AM EDT documented as of this encounter Care Teams Control Manager Relationship Specialty Start Date End Date Yeni Willoughby MD [address] [place] [phone] PCP - General Family Medicine 02/27/18 Quoc Bermudez, Shannen [address] [place] [address] [phone] Pharmacist Internal Medicine 02/14/22 [facility] 11/02/23 documented as of this encounter
--- OUTSIDE RECORDS SUMMARY | 2024-03-19 11:25 | XMS_ITS | Encounter Summary ---
Author Organization [email or web address] [facility] Address [address] [place] [address] [address] [place] [address] Care Team Providers Care Pillowcase Maker Name Role Phone Yeni Willoughby MD Primary Care Provider [phone] Quoc Bermudez PharmD Unavailable [phone] Reason for Referral * Medications - Closed Specialty Diagnoses / Procedures Referred By Contac t Referred To Contact Diagnoses Type 2 diabetes mellitus without complication, without long-term current use of insulin ([facility]) Yeni Willoughby MD [address] [place] [address] Phone: tel: fax: Referral ID Status Reason Start Date Expiration Date Visits Re quested Visits Authorized [id number] Closed 1 1 Encounter Details Date Type Department Care Team (Late st Contact Info) Description 10/18/2023 Orders Only [facility] MEDICINE [address] [place] [address] [phone] Yeni Willoughby MD [address] [place] [address] [phone] Hypomagnesemia (Primary Dx); Dehydration; CHEMO (acute kidney injury) (CMS/HCC); Type 2 diabetes mellitus without complication, without long-term current use of insulin (CMS/HCC) Social History Tobacco Use Types Packs/Day Years Used Date Smoking Tobacco: Every Day Cigarettes 0.5 30 Passive Smoke Exposure: Current Smokeless Tobacco: Never Alcohol Use Standard Drinks/Week Comments Not Currently 0 (1 standard drink = 0.6 oz pur e alcohol) Depression Answer Date Recorded Patient Health Questionnaire-9 Score 0 05/25/2023 Patient Health Questionnaire-9 Score 0 05/25/2023 Last PHQ-9: Questionnaire Data Not on file 0 05/25/2023 Housing Stability Answer Date Recorded What is your housing situation today? I have danny gross 08/15/[address] you li ve. Do you have problems with any of the following? Pests such as bugs, ants, or mice 08/15/2023 Food Insecurity Answer Date Recorded Within the past 12 months, y ou worried that your food would run out before you got money to buy more: Never True 08/15/2023 Within the past 12 months,th e food you bought just didn't last and you didn't have enough money to get more: Often true Transportation Answer Date Recorded In the past 12 months, has l ack of transportation kept you from medical appts, meetings, work or from getting things needed for daily living? No 12/14/2022 Utilities Answer Date Recorded In the past 12 months, has t he electric, gas, oil or water company threatened to shut off services in your home? Yes 08/15/2023 Depression Answer Date Recorded Patient Health Questionnaire-2 Score 0 05/25/2023 Comments Unknown Sex and Gender Information Value Date Recorded Sex Assigned at Female 12/27/2021 10:14 AM EDT Legal Sex Female 10:14 AM EDT Gender Identity Female 12/27/2021 10:14 AM EDT Sexual Orientation Straight 12/27/2021 10 :14 AM EDT documented as of this encounter Plan of Treatment Upcoming Encounters Date Type Department Care Team (Late st Contact Info) Description 03/27/2024 10:30 AM EST Medication Management [facility] MEDICINE [address] [place] [phone] Quoc Bermudez, PharmD [address] [place] [phone] 04/23/2024 11:15 AM EST Office Visit [facility] MEDICINE [address] [place] [phone] Yeni Willoughby MD [address] [place] [phone] 08/20/2024 1:00 PM EDT Office Visit [facility] ADULT DENTAL [address] [place] [address] Crystal Melendrez [address] [place] [address] Scheduled Orders Name Type Priority Associated Diagnoses Orde r Schedule Basic Metabolic Panel Lab Routine Hypomagnesemia Dehydration CHEMO (acute kidney injury) ([facility]) Expected: 10/23/2023 (Approximate), Expires: 10/17/2024 Magnesium Lab Routine Hypomagnesemia Dehydration CHEMO (acute kidney injury) ([facility]) Expected: 10/23/2023 (Approximate), Expires: 10/17/2024 documented as of this encounter Goals Goal Patient Goal Type Associated Problems Recent Progress Patient-Stated? Author Blood Pressure < 140/90 Blood Pressure 122/70(2023 11:17 AM EST) No Quoc Bermudez PharmD Hemoglobin A1c < 7 Result Component 5.5( 9:19 AM EST) No Quoc Bermudez, PharmErin documented as of this encounter Visit Diagnoses Diagnosis Hypomagnesemia- Primary Disorders of magnesium metabolism Dehydration CHEMO (acute kidney injury) ([facility]) Type 2 diabetes mellitus without complication, without long-term current use of insulin ([facility]) documented in this encounter Additional Health Concerns Assessment Noted Time PHQ-9 Depression Total Score: 0 05/25/19 24 9:46 AM EDT documented as of this encounter Care Teams Pillowcase Maker Relationship Specialty Start Date End Date Yeni Willoughby MD [address] [place] [address] PCP - General Family Medicine 02/27/18 Quoc Bermudez, RazD [address] [place] [address] Pharmacist Internal Medicine 02/14/22 [facility] 11/02/23 documented as of this encounter
--- OUTSIDE RECORDS SUMMARY | 2024-03-19 11:25 | XMS_ITS | Encounter Summary ---
Author Organization [facility] Address [address] [place] [address] [address] [place] [address] Care Team Providers Care Clock Smith Name Role Phone Yeni Willoughby MD Primary Care Provider [phone] Quoc Bermudez PharmD Unavailable [phone] Encounter Details Date Type Department Care Team (Late st Contact Info) Description 04/08/2022 Orders Only [facility] MEDICINE [address] [place] [phone] [phone] Yeni Willoughby MD [address] [place] [phone] Controlled type 2 diabetes mellitus with hyperglycemia, without long-term current use of insulin ([facility]) (Primary Dx); History of Graves' disease Social History Tobacco Use Types Packs/Day Years Used Date Smoking Tobacco: Every Day Cigarettes 0.5 30 Smokeless Tobacco: Never Alcohol Use Standard Drinks/Week Comments Not Currently 0 (1 standard drink = 0.6 oz pur e alcohol) Comments Unknown Sex and Gender Information Value Date Recorded Sex Assigned at Female 12/27/2021 10:14 AM EDT Legal Sex Female 10:14 AM EDT Gender Identity Female 12/27/2021 10:14 AM EDT Sexual Orientation Straight 12/27/2021 10 :14 AM EDT documented as of this encounter Plan of Treatment Upcoming Encounters Date Type Department Care Team (Late Contact Info) Description 03/27/2024 10:30 AM EST Medication Management [facility] MEDICINE [address] [place] [address] [phone] Quoc Bermudez, PharmD [address] [place] [address] 04/23/2024 11:15 AM EST Office Visit [facility] MEDICINE [address] [place] [address] Yeni Willoughby MD [address] [place] [phone] 08/20/2024 1:00 PM EDT Office Visit [facility] ADULT DENTAL [address] [place], [place] [phone] Parvin, Crystal [address] [place] [address] documented as of this encounter Visit Diagnoses Diagnosis Controlled type 2 diabetes mellitus with hyperglycemia, without long-term current use of insulin ([facility])- Primary History of Graves' disease documented in this encounter Care Teams Clock Smith Relationship Specialty Start Date End Date Yeni Willoughby MD [address] [place] [phone] PCP - General Family Medicine 02/27/18 Quoc Bermudez, RazD [address] [place] [phone] Pharmacist Internal Medicine 02/14/22 [facility] 11/02/23 documented as of this encounter
--- OUTSIDE RECORDS SUMMARY | 2024-03-19 11:25 | XMS_ITS | Encounter Summary ---
Author Organization [employer] Address [address] [place] [address] Care Team Providers Care Fiberglass Machine Operator Name Role Phone Yeni Willoughby MD Primary Care Provider [phone] Quoc Bermudez PharmD Unavailable [phone] Reason for Visit * Reason Comments Med Refill Encounter Details Date Type Department Care Team ([facility] st Contact Info) Description 03/17/2024 Refill [facility] MEDICINE [address] [place], [place] [phone] Yeni Willoughby MD [address] [place], [place] [phone] Controlled type 2 diabetes mellitus with hyperglycemia, without long-term current use of insulin ([facility]) Social History Tobacco Use Types Packs/Day Years [...] Recorded Patient Health Questionnaire-2 Score 0 05/25/2023 Internet Access Answer Date Recorded Internet Access Q1 Yes 10/28/2023 Internet Access Q2 Not on file 10/28/2023 Comments Unknown Sex and Gender Information Value [...] Description 03/27/2024 10:30 AM EST Medication Management [facility] MEDICINE [address] [place] [phone] Quoc Bermudez, PharmD [address] [place] [phone] 04/23/2024 11:15 AM EST Office Visit [facility] MEDICINE [address] [place] [phone] Yeni Willoughby MD [address] [place] [phone] 08/20/2024 1:00 PM EDT Office Visit [facility] ADULT DENTAL [address] [place] [phone] Crystal Melendrez [address] [place] [address] documented as of this encounter Goals Goal Patient Goal Type Associated Problems Recent Progress Patient-Stated? Author Blood Pressure < 140/90 Blood Pressure 122/70(2023 11:17 AM EST) No Quoc Bermudez PharmD Hemoglobin A1c < 7 Result Component 5.5( 4 9:19 AM EST) No Quoc Bermudez PharmD documented as of this encounter Visit Diagnoses Diagnosis Controlled type 2 diabetes mellitus with hyperglycemia, without long-term current use of insulin ([facility]) documented in this encounter Additional Health Concerns Assessment Noted Time PHQ-9 Depression Total Score: 0 05/25/19 24 9:46 AM EDT documented as of this encounter Care Teams Fiberglass Machine Operator Relationship Specialty Start Date End Date Yeni Willoughby MD [address] [place] [address] PCP - General Family Medicine 02/27/18 Quoc Bermudez PharmD [address] [place] [phone] Pharmacist Internal Medicine 02/14/22 [facility] 11/02/23 documented as of this encounter
--- OUTSIDE RECORDS SUMMARY | 2024-03-19 11:25 | XMS_ITS | Encounter Summary ---
Author Organization [employer] Address [address] [facility] 7t [place] [address] Care Team Providers Care Coke Worker Name Role Phone Yeni Willoughby MD Primary Care Provider [phone] Quoc Bermudez PharmD Unavailable [phone] Encounter Details Date Type Department Care Team ([facility] st Contact Info) Description 02/07/2024 Orders Only [facility] MEDICINE [address] [place], [place] [phone] Yeni Willoughby MD 230 [place], [place] [phone] Hyperkalemia (Primary Dx); Stage 3a chronic kidney disease (CMS/HCC) Social History Tobacco Use Types Packs/Day [...] Description 03/27/2024 10:30 AM EST Medication Management [facility] MED[facility]INE [address] [place] [address] Quoc Bermudez, PharmD [address] [place] [address] 04/23/2024 11:15 AM EST Office Visit [facility] [address] [place] [address] Yeni Willoughby MD [address] [place] [address] 08/20/2024 1:00 PM EDT Office Visit [facility] ADULT DENTAL [address] [place] [address] Crystal Melendrez 230 [place] [address] Scheduled Orders Name Type Priority Associated Diagnoses Orde r Schedule Basic Metabolic Panel Lab Routine Hyperkalemia Stage 3a chronic kidney disease (CMS/HCC) Expected: 02/07/2024 (Approximate), Expires: 02/06/2025 documented as of this encounter Goals Goal Patient Goal Type Associated Problems Recent Progress Patient-Stated? Author Blood Pressure < 140/90 Blood Pressure 122/70(2023 11:17 AM EST) No Quoc Bermudez PharmD Hemoglobin A1c < 7 Result Component 5.5( 9:19 AM EST) No Quoc Bermudez PharmD documented as of this encounter Visit Diagnoses Diagnosis Hyperkalemia- Primary Hyperpotassemia Stage 3a chronic kidney disease (CMS/HCC) documented in this encounter Additional Health Concerns Assessment Noted Time PHQ-9 Depression Total Score: 0 05/25/19 9:46 AM EDT documented as of this encounter Care Teams Coke Worker Relationship Specialty Start Date End Date Yeni Willoughby MD [address] [place] [address] PCP - General Family Medicine 02/27/18 Quoc Bermudez PharmD [address] [place] [address] Pharmacist Internal Medicine 02/14/22 [facility] 11/02/23 documented as of this encounter
--- OUTSIDE RECORDS SUMMARY | 2024-03-19 11:25 | XMS_ITS | Encounter Summary ---
Author Organization [facility] [facility] Address [address] [facility] 7t [place] [address] Care Team Providers Care Stock Handler Floorperson Name Role Phone Yeni Willoughby MD Primary Care Provider [phone] Quoc Bermudez PharmD Unavailable [phone] Reason for Visit * Reason Onset Date Comments Nurse Triage 12/08/2023 Encounter Details Date Type Department Care Team ([facility] st Contact Info) Description 12/08/2023 Telephone [facility] MEDICINE [address] [place] [address] Yeni Willoughby MD 230 [place] [address] Nurse Triage Social History Tobacco Use Types Packs/Day Years [...] AM EDT documented as of this encounter Miscellaneous Notes * Telephone Encounter - Harper Downey RN - 12/08/2023 10:56 AM EDT Called pt. Via [employer] seismic interpreter [phone] Jay. Pt. States that she has been itchy all over herbody x 1 week. Itchiness is worse on neck, arms and on her panty line. Pt. Unsure if it is the medications that she got sent home from [facility] with on 10/26/23 Gabapentin 100mg Three x a day and also Meclizine 25mg 1 tablet 3 times a day as needed. Pt does have rash on neck and hands. Pt denies any itchiness in throat or swelling in throat. Pt denies itchiness on head. I advised that pt. Needs to be seen today or tomorrow in [facility] walk in. Hours provided and pt. States she will go tomorrow to Monday clinic 12/09/23. Protocol Used: Itching - Widespread (Adult) Protocol-Based Disposition: See in Office or Video Visit within 3 Days Pt. Will go to walk in 12/09/23- advised ED if starts to feel itchy throat, swelling in throat or trouble breathing. Video visit not offered Positive Triage Question: * Widespread itching and cause unknown and present > 48 hours * All higher-acuity triage questions were negative Care Advice Discussed: * Reassurance and Education - Widespread Itching * Don't Scratch * Avoid Soaps * Antihistamine Medicines for Severe Itching * Telephone Encounter - Poncho Rangel - 12/08/2023 10:51 AM EDT Symptoms: Itching - No Rash, Heartbeat Symptoms (Fast, Slow, or Irregular) Outcome: Schedule an urgent appointment (within 4 hours) or talk to a nurse or provider soon Reason: Severe itching now documented in this encounter Plan of Treatment Upcoming Encounters Date Type Department Care Team (Late st Contact Info) Description 03/27/2024 10:30 AM EST Medication Management [facility] MEDICINE [address] [place] [address] Quoc Bermudez PharmD [address] [place] [address] 04/23/2024 11:15 AM EST Office Visit [facility] MEDICINE [address] [place] [address] Yeni Willoughby MD 230 [place] [address] 08/20/2024 1:00 PM EDT Office Visit [facility] ADULT DENTAL [address] [place] [address] Crystal Melendrez [address] [place] [address] documented as of this encounter Goals Goal Patient Goal Type Associated Problems Recent Progress Patient-Stated? Author Blood Pressure < 140/90 Blood Pressure 122/70(2023 11:17 AM EST) No Quoc Bermudez PharmD Hemoglobin A1c < 7 Result Component 5.5( 9:19 AM EST) No Quoc Bermudez PharmD documented as of this encounter Visit Diagnoses Not on filedocumented in this encounter Additional Health Concerns Assessment Noted Time PHQ-9 Depression Total Score: 0 05/25/19 9:46 AM EDT documented as of this encounter Care Teams Stock Handler Floorperson Relationship Specialty Start Date End Date Yeni Willoughby MD [address] [place] [address] PCP - General Family Medicine 02/27/18 Quoc Bermudez PharmD [address] [place] [address] Pharmacist Internal Medicine 02/14/22 [facility] 11/02/23 documented as of this encounter
--- OUTSIDE RECORDS SUMMARY | 2024-03-19 11:25 | XMS_ITS | Encounter Summary ---
Author Organization [facility] [facility] Address [address] [place] [address] 7t [place] [address] Care Team Providers Care Patient Transportation Driver Name Role Phone Yeni Willoughby MD Primary Care Provider [phone] Quoc Bermudez PharmD Unavailable [phone] Reason for Visit * Reason Onset Date Comments Referral 11/04/2022 Encounter Details Date Type Department Care Team ([facility] st Contact Info) Description 11/04/2022 Telephone [facility] MEDICINE 230 [place], [place] [phone] Yeni Willoughby MD [address] [place], [place] [phone] Referral Social History Tobacco Use Types Packs/Day Years [...] encounter Miscellaneous Notes * Telephone Encounter - Siena Baca - 11/04/2022 3:16 PM EDT Tc from patient calling in regards to gastro referral. States office has repeatedly to her they don't have referral on file. Patient is requesting for appt to be made if possible to be able to get seen. documented in this encounter Plan of Treatment Upcoming Encounters Date Type Department Care Team (Late st Contact Info) Description 03/27/2024 10:30 AM EST Medication Management [facility] MEDICINE [address] [place] [address] Quoc Bermudez, Shannen [address] [place] [address] 04/23/2024 11:15 AM EST Office Visit [facility] MEDICINE [address] [place] [address] Yeni Willoughby MD [address] [place] [address] 08/20/2024 1:00 PM EDT Office Visit [facility] ADULT DENTAL [address] [place] [address] Parvin, Crystal [address] [place] [address] documented as of this encounter Goals Goal [...] documented as of this encounter Care Teams Patient Transportation Driver Relationship Specialty Start Date End Date Yeni Willoughby MD [address] [place] [address] PCP - General Family Medicine 02/27/18 Quoc Bermudez, PharmD [address] [place] [address] Pharmacist Internal Medicine 02/14/[address] [facility] 11/02/23 documented as of this encounter
--- OUTSIDE RECORDS SUMMARY | 2024-03-19 11:25 | XMS_ITS | Encounter Summary ---
Author Organization [employer] Address [address] [facility] 7t [place] [address] Care Team Providers Care Rail Doweling Machine Operator Name Role Phone Yeni Willoughby MD Primary Care Provider [phone] Quoc Bermudez PharmD Unavailable [phone] Reason for Visit * Reason Onset Date Comments callback reqested 03/04/2024 Encounter Details Date Type Department Care Team ([facility] Contact Info) Description 03/04/2024 Telephone [facility] MEDICINE 230 [place] [address] Yeni Willoughby MD [address] [place] [address] callback reqested Social History Tobacco Use Types Packs/Day Years [...] encounter Miscellaneous Notes * Telephone Encounter - Traci Lentz RN - 03/05/2024 2:41 PM EST Telephone call to Pauline at [facility] at [phone], no answer, left voicemail to call back [facility]. Phone number [phone] as listed in below message not in service. * Telephone Encounter - Carlos Mercado - 03/04/2024 10:31 AM EST Tc from [facility] with [facility] requesting clarifications on active med list as she's requesting a callback [phone] documented in this encounter Plan of Treatment Upcoming Encounters Date Type Department Care Team (Late st Contact Info) Description 03/27/2024 10:30 AM EST Medication Management [facility] MEDICINE [address] [place] [address] Quoc Bermudez, PharmD 230 [place], [place] [phone] 04/23/2024 11:15 AM EST Office Visit [facility] MEDICINE [address] [place] [address] Yeni Willoughby MD 230 [place] [address] 08/20/2024 1:00 PM EDT Office Visit [facility] ADULT DENTAL [address] [place] [address] Parvin, Crystal [address] [place] [address] documented as of this encounter Goals Goal [...] documented as of this encounter Care Teams Rail Doweling Machine Operator Relationship Specialty Start Date End Date Yeni Willoughby MD [address] [place] [address] PCP - General Family Medicine 02/27/18 Quoc Bermudez, RazD [address] [place] [address] Pharmacist Internal Medicine 02/14/22 [facility] 11/02/23 documented as of this encounter
--- OUTSIDE RECORDS SUMMARY | 2024-03-19 11:25 | XMS_ITS | Encounter Summary ---
Author Organization [employer] Address [address] [facility] 7t [place] [address] Care Team Providers Care Division Sergeant Name Role Phone Yeni Willoughby MD Primary Care Provider [phone] uQoc Bermudez PharmD Unavailable [phone] Encounter Details Date Type Department Care Team ([facility] Contact Info) Description 11/22/2023 Orders Only [facility] MEDICINE 230 [place], [place] [phone] Yeni Willoughby MD [address] [place], [place] [phone] Hypomagnesemia (Primary Dx); Hypocalcemia Social History Tobacco Use Types Packs/Day Years [...] Description 03/27/2024 10:30 AM EST Medication Management [facility] MEDICINE [address] [place] [address] Quoc Bermudez, PharmD [address] [place] [address] 04/23/2024 11:15 AM EST Office Visit [facility] MEDICINE [address] [place] [address] Yeni Willoughby MD [address] [place] [address] 08/20/2024 1:00 PM EDT Office Visit [facility] ADULT DENTAL [address] [place] [address] Crystal Melendrez [address] [place] [address] Scheduled Orders Name Type Priority Associated Diagnoses Orde r Schedule Basic Metabolic Panel Lab Routine Hypomagnesemia Hypocalcemia Expected: 12/27/2023 (Approximate), Expires: 11/21/2024 documented as of this encounter Goals Goal Patient Goal Type Associated Problems Recent Progress Patient-Stated? Author Blood Pressure < 140/90 Blood Pressure 122/70(2023 11:17 AM EST) No Quoc Bermudez, Shannen Hemoglobin A1c < 7 Result Component 5.5( 9:19 AM EST) No Quoc Bermudez PharmD documented as of this encounter Procedures Procedure Name Priority Date/Time Associated Diagnosis Comments MAGNESIUM Routine 02/06/2024 12:07 PM EST Hypomagnesemia Hypocalcemia TSH Routine 01/12/2024 11:55 AM EST Hypomagnesemia Hypocalcemia T4, FREE Routine 01/12/2024 11:55 AM EST Hypomagnesemia Hypocalcemia MAGNESIUM Routine 01/12/2024 11:55 AM EST Hypomagnesemia Hypocalcemia BASIC METABOLIC PANEL Routine 01/12/2024 11:55 AM EST Hypomagnesemia Hypocalcemia documented in this encounter Results * Magnesium (02/06/2024 12:07 PM EST) Magnesium 2.2 1.6 - 2.6 mg/dL [facility] Blood Venous blood specimen / Unknown 02/06/2024 12:07 PM EST 02/06/2024 1:03 PM EST us Yeni Willoughby MD LAB BLOOD ORDERABLES Final Resul t [facility] [address] [place] [phone] * (ABNORMAL) TSH (01/12/2024 11:55 AM EST) Thyroid Stimulating Hormone 0.05(L) 0.32 - 4.0 uIU/mL [facility] Comment:TSH 3rd Generation ( [facility]) Blood Venous blood specimen / Unknown 01/12/2024 11:55 AM EST 01/12/2024 12:57 PM EST Yeni Willoughby MD LAB BLOOD ORDERABLES Final Resul t Performing Organization Address [facility]/ZIP Co de Phone Number [facility] [address] [place] [phone] * T4, Free (01/12/2024 11:55 AM EST) Free T4 (Free Thyroxine) 1.32 0.71 - 1.85 ng/dL [facility] Blood Venous blood specimen / Unknown 01/12/2024 11:55 AM EST 01/12/2024 12:57 PM EST Yeni Willoughby MD LAB BLOOD ORDERABLES Final Resul t Performing Organization Address [facility] de Phone Number [facility] [address] [place] [phone] * (ABNORMAL) Magnesium (01/12/2024 11:55 AM EST) Magnesium 1.3(LL) 1.6 - 2.6 mg/dL [facility] Comment:Critical value for M AG: Results called to and read back by:Naty Rodriguez Person calling: JIMMY Date: 01/12/24 Time: 1414 Blood Venous blood specimen / Unknown 01/12/2024 11:55 AM EST 01/12/2024 12:57 PM EST Yeni Willoughby MD LAB BLOOD ORDERABLES Final Resul t Performing Organization Address [facility] Co de Phone Number [facility] [address] [place] [phone] * (ABNORMAL) Basic Metabolic Panel (01/12/2024 11:55 AM EST) Sodium 141 135 - 145 mmol/L [facility] Potassium 4.1 3.3 - 5.1 mmol/L [facility] Chloride 106 96 - 108 mmol/L [facility] Carbon Dioxide 29 22 - 29 mmol/L [facility] Anion Gap 10(L) 12 - 20 [facility] Urea Nitrogen (BUN) 20(H) 9 - 16 mg/dL [facility] Creatinine, Serum 0.99 0.5 - 1.4 mg/dL [facility] Estimated Glomerular Filt Rate 57 [facility] Comment:Chronic Kidney Disea se: Estimated GFR < 60 mL/min/1.27w3Gfvwwg Kidney Disease: Estimated GFR < 15 mL/min/1.73m2 Glucose 97 60 - 115 mg/dL [facility] Calcium 9.3 8.4 - 10.2 mg/dL [facility] Blood Venous blood specimen / Unknown 01/12/2024 11:55 AM EST 01/12/2024 12:57 PM EST Yeni Willoughby MD LAB BLOOD ORDERABLES Final Resul t Performing Organization Address City/State/[facility] Co de Phone Number [facility] [address] [place] [phone] [phone] documented in this encounter Visit Diagnoses Diagnosis Hypomagnesemia- Primary Disorders of magnesium metabolism Hypocalcemia documented in this encounter Additional Health Concerns Assessment Noted Time PHQ-9 Depression Total Score: 0 05/25/19 24 9:46 AM EDT documented as of this encounter Care Teams Division Sergeant Relationship Specialty Start Date End Date Yeni Willoughby MD [address] [place] [address] PCP - General Family Medicine 02/27/18 Quoc Bermudez, RazD [address] [place] [address] Pharmacist Internal Medicine 02/14/22 [facility] 11/02/23 documented as of this encounter
--- OUTSIDE RECORDS SUMMARY | 2024-03-19 11:25 | XMS_ITS | Encounter Summary ---
Author Organization [employer] Address [address] [facility] [address] 7t [place] [address] Care Team Providers Care Harvest Manager Name Role Phone Yeni Willoughby MD Primary Care Provider [phone] Quoc Bermudez PharmD Unavailable [phone] Encounter Details Date Type Department Care Team ([facility] Contact Info) Description 02/23/2024 Telephone [facility] MEDICINE 230 [place], [place] [phone] Yeni Willoughby MD [address] [place], [place] [phone] Social History Tobacco Use Types Packs/Day Years [...] encounter Miscellaneous Notes * Telephone Encounter - Yeni Willoughby MD - 03/01/2024 9:52 AM EST Referral renewed * Telephone Encounter - Elizabeth Rangel - 02/23/2024 2:33 PM EST Pharmacy is requesting an updated CDTM referral with a diagnosis of hypertension . Primary hypertension I10. This is to replace existing referral that no longer meets visit requirements. Please send at your earliest convenience. Thank you! documented in this encounter Plan of Treatment Upcoming Encounters Date Type Department Care Team (Late st Contact Info) Description 03/27/2024 10:30 AM EST Medication Management [facility] MEDICINE [address] [place] [address] Quoc Bermudez, PharmD [address] [place] [address] 04/23/2024 11:15 AM EST Office Visit [facility] MEDICINE [address] [place] [address] Yeni Willoughby MD [address] [place] [address] 08/20/2024 1:00 PM EDT Office Visit [facility] ADULT DENTAL [address] [place] [address] Crystal Melendrez [address] [place] [address] documented as of this encounter Goals Goal [...] documented as of this encounter Care Teams Harvest Manager Relationship Specialty Start Date End Date Yeni Willoughby MD [address] [place] [address] PCP - General Family Medicine 02/27/18 Quoc Bermudez PharmD [address] [place] [address] Pharmacist Internal Medicine 02/14/22 [facility] 11/02/23 documented as of this encounter
--- OUTSIDE RECORDS SUMMARY | 2024-03-19 11:25 | XMS_ITS | Encounter Summary ---
Author Organization [employer] Address [address] [place] [address] 7t [place] [address] Care Team Providers Care Production Shift Supervisor Name Role Phone Yeni Willoughby MD Primary Care Provider Quoc Bermudez PharmD Unavailable [phone] Reason for Visit * Reason Onset Date Comments Referral 04/08/2022 Encounter Details Date Type Department Care Team ([facility] st Contact Info) Description 04/08/2022 Telephone [facility] MEDICINE [address] [place] [address] Yeni Willoughby MD [address] [place] [address] Referral Social History Tobacco Use Types Packs/Day [...] encounter Miscellaneous Notes * Telephone Encounter - Angela Santos - 04/08/2022 1:21 PM EST Tc fom pt requesting a referral for [facility] [place] [address], [place] [address], pt stated had to cancelled appt scheduled for today 2/10/23 due to needing a referral. Please contact at [phone] Italian documented in this encounter Plan of Treatment Upcoming Encounters Date Type Department Care Team (Late st Contact Info) Description 03/27/2024 10:30 AM EST Medication Management [facility] MEDICINE [address] [place] [address] Quoc Bermudez, PharmD [address] [place] [address] 04/23/2024 11:15 AM EST Office Visit [facility] MEDICINE [address] [place] [address] Yeni Willoughby MD [address] [place] [address] 08/20/2024 1:00 PM EDT Office Visit [facility] ADULT DENTAL [address] [place] [address] Parvin, Crystal [address] [place] [address] documented as of this encounter Visit Diagnoses Not on filedocumented in this encounter Care Teams Production Shift Supervisor Relationship Specialty Start Date End Date Yeni Willoughby MD [address] [place] [address] PCP - General Family Medicine 02/27/18 Quoc Bermudez, PharmD [address] [place] [address] Pharmacist Internal Medicine 02/14/22 [facility] 11/02/23 documented as of this encounter
--- OUTSIDE RECORDS SUMMARY | 2024-03-19 11:25 | XMS_ITS | Encounter Summary ---
Author Organization [employer] Address [address] 7t [place] [address] Care Team Providers Care Blood Bank Booking Clerk Name Role Phone Yeni Willoughby MD Primary Care Provider [phone] Quoc Bermudez PharmD Unavailable Encounter Details Date Type Department Care Team ([facility] st Contact Info) Description 06/21/2023 Orders Only [facility] MEDICINE [address] [place], [place] [phone] Yeni Willoughby MD [address] [place] [address] Social History Tobacco Use Types Packs/Day Years [...] housing situation today? I have danny gross 12/14/[address] you li ve. Do you have problems with any of the following? None of the above 12/14/2022 Food Insecurity Answer Date Recorded Within the past 12 months, y ou worried that your food would run out before you got money to buy more: Often true 12/14/2022 Within the past 12 months,th e food [...] to shut off services in your home? No 12/14/2022 Depression Answer Date Recorded Patient Health Questionnaire-2 [...] 03/27/2024 10:30 AM EST Medication Management [facility] MEDICINE [address] [place] [address] Quoc Bermudez PharmD [address] [place] [address] 04/23/2024 11:15 AM EST Office Visit [facility] MEDICINE [address] [place] [address] Yeni Willoughby MD [address] [place] [address] 08/20/2024 1:00 PM EDT Office Visit [facility] ADULT DENTAL [address] [place] [address] Crystal Melendrez [address] [place] [address] documented as of this encounter Goals Goal [...] documented as of this encounter Care Teams Blood Bank Booking Clerk Relationship Specialty Start Date End Date Yeni Willoughby MD [address] [place] [address] PCP - General Family Medicine 02/27/18 Quoc Bermudez, aRzD [address] [place] [address] Pharmacist Internal Medicine 02/14/22 [facility] 11/02/23 documented as of this encounter
--- OUTSIDE RECORDS SUMMARY | 2024-03-19 11:25 | XMS_ITS | Encounter Summary ---
Author Organization [employer] Address [address] [place] [address] Care Team Providers Care Anthropology Lecturer Name Role Phone Yeni Willoughby MD Primary Care Provider [phone] Quoc Bermudez PharmD Unavailable [phone] Encounter Details Date Type Department Care Team ([facility] Contact Info) Description 05/26/2023 Orders Only [facility] [address] [place], [place] [phone] Yeni Willoughby MD [address] [place], [place] [phone] Postablative hypothyroidism (Primary Dx); Hypomagnesemia Social History Tobacco Use Types Packs/Day Years [...] 03/27/2024 10:30 AM EST Medication Management [facility] [address] [place] [phone] Quoc Bermudez, PharmD [address] [place] [phone] 04/23/2024 11:15 AM EST Office Visit [facility] [address] [place] [phone] Yeni Willoughby MD [address] [place] [phone] 08/20/2024 1:00 PM EDT Office Visit [facility] [address] [place] [phone] Crystal Melendrez [address] [place] [address] Scheduled Orders Name Type Priority Associated Diagnoses Orde r Schedule Magnesium, urine, 24 hour Lab Routine Hypomagnesemia Expected: 05/26/2023 (Approximate), Expires: 05/25/2024 Creatinine, 24-Hour Urine Lab Routine Hypomagnesemia Expected: 05/26/2023 (Approximate), Expires: 05/25/2024 documented as of this encounter Goals Goal Patient Goal Type Associated Problems Recent Progress Patient-Stated? Author Blood Pressure < 140/90 Blood Pressure 122/70(2023 11:17 AM EST) No Quoc Bermudez, Shannen Hemoglobin A1c < 7 Result Component 5.5( 9:19 AM EST) No Quoc Bermudez, Shannen documented as of this encounter Procedures Procedure Name Priority Date/Time Associated Diagnosis Comments TSH Routine 06/21/2023 11:29 AM EDT Postablative hypothyroidism T4, FREE Routine 06/21/2023 11:29 AM EDT Postablative hypothyroidism documented in this encounter Results * (ABNORMAL) TSH (06/21/2023 11:29 AM EDT) Thyroid Stimulating Hormone 0.05(L) 0.32 - 4.0 uIU/mL [facility] Comment:TSH 3rd Generation ( [facility]) Blood Venous blood specimen / Unknown 06/21/2023 11:29 AM EDT 06/21/2023 1:52 PM EDT us Yeni Willoughby MD LAB BLOOD ORDERABLES Final Resul t Performing Organization Address City/[facility]/ZIP Co de Phone Number [facility] [address] [place] [phone] * T4, Free (06/21/2023 11:29 AM EDT) Free T4 (Free Thyroxine) 1.31 0.71 - 1.85 ng/dL [facility] Blood Venous blood specimen / Unknown 06/21/2023 11:29 AM EDT 06/21/2023 1:52 PM EDT us Yeni Willoughby MD LAB BLOOD ORDERABLES Final Resul t Performing Organization Address City/[facility] Co de Phone Number [facility] [address] [place] [phone] documented in this encounter Visit Diagnoses Diagnosis Postablative hypothyroidism- Primary Other postablative hypothyroidism Hypomagnesemia Disorders of magnesium metabolism documented in this encounter Additional Health Concerns Assessment Noted Time PHQ-9 Depression Total Score: 0 05/25/19 9:46 AM EDT documented as of this encounter Care Teams Anthropology Lecturer Relationship Specialty Start Date End Date Yeni Willoughby MD [address] [place] [address] PCP - General Family Medicine 02/27/18 Quoc Bermudez, RazD [address] [place] [address] Pharmacist Internal Medicine 02/14/22 [facility] 11/02/23 documented as of this encounter
--- OUTSIDE RECORDS SUMMARY | 2024-03-19 11:25 | XMS_ITS | Clinical Summary ---
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 Name Role Phone Yeni Washington MD Primary Care Provider [phone] Quoc Bermudez PharmD Unavailable [phone] Allergies Active Allergy Reactions Criticality Noted Date Comments Codeine 05/25/2018 Other reaction(s): Rash, Rash Fluoxetine 03/08/2010 Other reaction(s): unspecified Ibuprofen 03/08/2010 Other reaction(s): unspecified Sulfamethoxazole 03/08/2010 Other reaction(s): unspecified Trimethoprim 03/08/2010 Other reaction(s): unspecified Medications albuterol 108 (90 Base) MCG/ACT inhaler inhale 2 puff by inhalation route every 4 - 6 hours as needed as needed 11/27/19 22 Active Alcohol Swabs (SM Alcohol Prep) 70 % pads USE DIRECTED FOUR TIMES DAILY 02/04/20 22 Active Blood Pressure Monitoring (Omron 3 Series BP Monitor) device USE TO CHECK BLOOD PRESSURE ONCE DAILY 06/25/19 22 Active TRUE[facility] TEST BLOOD SUGAR FOUR TIMES DAILY 02/04/20 22 Active polyvinyl alcohol (Liquifilm Tears) 1.4 % ophthalmic solution APPLY IN EACH EYE NEEDED DIRECTED 01/18/20 22 Active tiotropium (Spiriva HandiHaler) [address] 1 capsule (18 mcg) into inhaler and inhale in the morning. 30 capsule 11 08/29/19 23 Active fluticasone (Flonase) 50 MCG/ACT nasal spray spray 1 spray by intranasal route every day in each nostril 16 g 10/24/20 23 Active cloNIDine (Catapres) 0.2 MG tablet TAKE 1 TABLET BY MOUTH AT BEDTIME 90 tablet 3 06/20/19 Active Probiotic Product (Advanced Probiotic-14) capsule Take 1 capsule by mouth every morning 06/22/19 Active Reguloid 0.52 g capsule Take 1 capsule by mouth 2 times daily. 06/22/19 Active naloxone (Narcan) 4 mg/0.1 mL nasal spray Administer 1 spray (4 mg) into affected nostril(s) if needed for opioid reversal. May repeat every 2-3 minutes if needed, alternating nostrils, until medical assistance becomes available. 2 each 08/16/19 24 025 Active Fluticasone-Salmet kelsey 250-50 MCG/ACT aerosol powder INHALE 1 PUFF BY MOUTH TWICE DAILY RINSE MOUTH AFTER USING. 60 each 08/21/19 Active D3-1000 25 MCG (1000 UT) capsule TAKE 2 CAPSULES BY MOUTH ONCE DAILY IN THE MORNING 60 capsule 11 10/13/19 Active FREESTYLE LITE test stripIndications:T ype 2 diabetes mellitus without complication, without long-term current use of insulin ([facility]) TEST BLOOD SUGAR THREE TIMES DAILY 100 each 11 10/19/19 Active atorvastatin (Lipitor) 10 MG tablet Take 2 tablets (20 mg) by mouth Once per day. 60 tablet 11 11/22/19 24 025 Active calcium 500 MG tablet Take 1 tablet (500 mg) by mouth Once per day. 90 tablet 3 11/23/19 24 Active amLODIPine (Norvasc) 5 MG tablet Take 1 tablet (5 mg) by mouth Once per day. 30 tablet 3 11/29/19 Active loratadine (Claritin) 10 MG tablet Take 1 tablet (10 mg) by mouth Once per day. 30 tablet 12/09/19 24 Active Trulicity 0.75 MG/0.5ML solution auto-injectorIndic ations:Controlled type 2 diabetes mellitus without complication, without long-term current use of insulin ([facility]) INJECT ONE PEN (=0.75MG) SUBCUTANEOUSLY ONCE A WEEK DIRECTED 2 mL 3 12/15/19 24 Active meclizine (Antivert) 25 MG tablet TAKE 1 TABLET BY MOUTH IN THE MORNING, AT NOON AND BEDTIME IF NEEDED FOR DIZZINESS. 30 tablet 12/19/19 24 Active acetaminophen (Tylenol 8 Hour) 650 MG ER tabletIndications: Chronic low back pain, unspecified back pain laterality, unspecified whether sciatica present Take 1 tablet by mouth every 8 hours as needed 60 tablet 3 12/20/19 24 Active olmesartan (Benicar) 20 MG tablet Take 1 tablet (20 mg) by mouth Once per day. 90 tablet 3 12/20/19 24 025 Active montelukast (Singulair) 10 MG tablet TAKE 1 TABLET BY MOUTH EVERY EVENING 90 tablet 12/25/19 24 Active metFORMIN XR (Glucophage-XR) 500 MG 24 hr tabletIndications: Controlled type 2 diabetes mellitus with hyperglycemia, without long-term current use of insulin ([facility]) TAKE 2 TABLETS BY MOUTH TWICE DAILY IN THE MORNING AND EVENING 360 tablet 12/25/19 Active famotidine (Pepcid) 20 MG tablet Take 1 tablet (20 mg) by mouth if needed in the morning and at bedtime for heartburn. 60 tablet 1 01/12/20 24 Active omeprazole (PriLOSEC) [address] capsuleIndications :Gastroesophageal reflux disease, unspecified whether esophagitis present Once daily at bedtime. Do not crush or chew. 30 capsule 2 02/06/20 24 Active aspirin (Aspirin Low Dose) 81 MG EC tabletIndications: At high risk for cardiovascular disease TAKE 1 TABLET BY MOUTH EVERY MORNING 30 tablet 11 02/12/20 24 Active magnesium oxide (Mag-Ox) 400 MG tablet TAKE 1 TABLET BY MOUTH TWICE DAILY IN THE MORNING AND AT BEDTIME 60 tablet 3 02/12/20 Active levothyroxine (Synthroid) 100 MCG tablet Take 1 tablet (100 mcg) by mouth before breakfast. 30 tablet 11 02/13/20 24 025 Active Active Problems Problem Noted Date Diagnosed Date Acute kidney injury 02/13/2024 Assessment & Plan (02/14/2024 6:24 AM EST): Recent labs on 02/06/24 showed Cr of 1.28, BUN 26 and K 5.5. - questionable medication adherence - dicussed repeating labs today (02/13/24) and if kidney function decreases more will refer to Nephrology. Dental calculus 07/06/2023 Periodontal disease 07/06/2023 Localized gingival recession 07/06/2023 Pancreatic insufficiency 05/26/2023 Assessment & Plan (02/14/2024 6:23 AM EST): - following with [facility] - provisional Dx US in Mar 2023 showed coarse heterogenous echotexture - prescribed pancreatic enzyme by GI in the past, not taking currently Assessment & Plan (05/26/2023 12:19 PM EDT): - following with [facility] - provisional Dx US in Mar 2023 showed coarse heterogenous echotexture - trying pancreatic enzyme currently Pulmonary nodules 05/26/2023 Assessment & Plan (11/22/2023 10:08 AM EDT): - followed by [facility] [place] - CT in August 2022, Lung RADS 2, Multiple 1 mm calcified small granulomas in both lungs. 4 mm pulmonary nodules are stable. No new nodules seen. - most recent CT scan in Sep 2023, Lung RADS 1. No nodule. Continue annual lung cancer screening CT scan - continue annual CT scan - continue working on smoking cessation Assessment & Plan (05/26/2023 12:23 PM EDT): - followed [place] [facility] [place] - last CT in August 2022, Lung RADS 2, Multiple 1 mm calcified small granulomas in both lungs. 4 mm pulmonary nodules are stable. No new nodules seen. - continue annual CT scan - continue working on smoking cessation Metabolic dysfunction-associ ated steatotic liver disease (MASLD) 08/28/2022 Assessment & Plan (02/13/2024 9:27 AM EST): - following with [facility] - hx reactive Hep C antibody, negative in 2020 and 2021 - most recent US on 05/08/23 mildly increased echogenicity of liver. - fibrosis stage F0 - FIB4 index 0.96 - continue working on lifestyle modifications Assessment & Plan (11/22/2023 9:31 AM EDT): - following with [facility] - hx reactive Hep C antibody, negative in 2020 and 2021 - most recent US on 05/08/23 mildly increased echogenicity of liver. - fibrosis stage F0 - FIB4 index 0.96 - continue working on lifestyle modifications Assessment & Plan (08/16/2023 12:34 PM EDT): - following with [facility] - hx reactive Hep C antibody, negative in 2020 and 2021 - most recent US on 05/08/23 mildly increased echogenicity of liver. - fibrosis stage F0 - FIB4 index 0.96 - continue working on lifestyle modifications Assessment & Plan (05/26/2023 11:47 AM EDT): - following with [facility] - hx reactive Hep C antibody, negative in 2020 and 2021 - most recent US on 05/08/23 mildly increased echogenicity of liver. - fibrosis stage F0 Assessment & Plan (08/28/2022 11:22 AM EDT): - hx reactive Hep C antibody, negative in 2020 and 2021 - evaluate with US - refer back to GI Hepatomegaly 08/28/2022 Assessment & Plan (05/25/2023 5:46 AM EDT): - hx reactive Hep C antibody, negative in 2020 and 2021 - following with GI Assessment & Plan (08/28/2022 11:22 AM EDT): - hx reactive Hep C antibody, negative in 2020 and 2021 - evaluate with US - refer back to GI Mild CAD 08/18/2022 Overview (08/18/2022): Images from the original note were not included. From cards note 09/2020 re stress test: Cardiac cath 09/2020 mild coronary artery dz Assessment & Plan (11/22/2023 3:46 PM EDT): 10/14/20 TTE Normal EF 60-65% 10/22/20 Cardiac cath showed mild CAD, medical management was recommended Continue working on risk factor management Harm reduction on cardiotoxic substances Consider checking coronary calcium score Assessment & Plan (05/26/2023 11:43 AM EDT): 10/14/20 TTE Normal EF 60-65% 10/22/20 Cardiac cath showed mild CAD, medical management was recommended Continue working on risk factor management Consider checking coronary calcium score Assessment & Plan (08/28/2022 11:00 AM EDT): 10/14/20 TTE Normal EF 60-65% 10/22/20 Cardiac cath showed mild CAD, medical management was recommended Continue working on risk factor management Overweight 06/13/2022 Asthma-COPD overlap syndrome 06/01/2022 Assessment & Plan (11/22/2023 9:31 AM EDT): - PFT in 2008 showed moderate-severe obstructive airway disease with complete reversibility. - She also has [place]. - Current medications: Maintenance: Singulair 10 mg at bedtime; tiotropium (Spiriva); fluticasone propionate / salmeterol (Wixela) -Rescue: DuoNeb prn; Albuterol HFA prn - Treatment Hx: She has tried Incruse Ellipta, but had intolerance / adverse reaction. Pt c/o dry mouth with Spiriva, but would like to resume because she reported adverse reaction and ineffectiveness with Budesonide - formoterol - glycopyrrolate (Breztri) - Stop smoking. - will repeat Pulm Function Test in near future Assessment & Plan (08/15/2023 7:20 PM EDT): - PFT in 2008 showed moderate-severe obstructive airway disease with complete reversibility. - She also has [place]. - Current medications: Maintenance: Singulair 10 mg at bedtime; tiotropium (Spiriva); fluticasone propionate / salmeterol (Wixela) -Rescue: DuoNeb prn; Albuterol HFA prn - Treatment Hx: She has tried Incruse Ellipta, but had intolerance / adverse reaction. Pt c/o dry mouth with Spiriva, but would like to resume because she reported adverse reaction and ineffectiveness with Budesonide - formoterol - glycopyrrolate (Breztri) - Stop smoking. - will repeat Pulm Function Test in near future Assessment & Plan (05/25/2023 5:43 AM EDT): - PFT in 2008 showed moderate-severe obstructive airway disease with complete reversibility. - She also has [place]. - Current medications: Maintenance: Singulair 10 mg at bedtime; tiotropium (Spiriva); fluticasone propionate / salmeterol (Wixela) -Rescue: DuoNeb prn; Albuterol HFA prn - Treatment Hx: She has tried Incruse Ellipta, but had intolerance / adverse reaction. Pt c/o dry mouth with Spiriva, but would like to resume because she reported adverse reaction and ineffectiveness with Budesonide - formoterol - glycopyrrolate (Breztri) - Stop smoking. - will repeat Pulm Function Test in near future Assessment & Plan (08/28/2022 10:53 AM EDT): - PFT in 2008 showed moderate-severe obstructive airway disease with complete reversibility. - She also has [place]. - Current medications: Maintenance: Singulair 10 mg qhs; Budesonide - formoterol - glycopyrrolate, but she reports intolerance. Pt requests Spiriva; will resume Spiriva and start Wixela -Rescue: DuoNeb prn; Albuterol HFA prn - Treatment Hx: She has tried Incruse Ellipta, but had intolerance / adverse reaction. Pt c/o dry mouth with Spiriva, but would like to resume because she does not like Breztri - Avoid irritation / triggers. - Stop smoking. - will repeat Pulm Function Test in near future Assessment & Plan (06/01/2022 5:12 AM EDT): - PFT in 2008 showed moderate-severe obstructive airway disease with complete reversibility. - She also has [place]. - Current medications: Maintenance: Singulair 10 mg qhs; Pt dislikes Spiriva due to dry mouth, will discontinue Spiriva and add Flovent 110mcg 1puff BID Rescue: DuoNeb prn; Albuterol HFA prn - Treatment Hx: She has tried Incruse Ellipta, but had intolerance / adverse reaction. Pt c/o dry mouth with Spiriva - Avoid irritation / triggers. - Stop smoking. - will repeat Pulm Function Test Tobacco use 06/01/2022 Assessment & Plan (02/13/2024 9:31 AM EST): -Smoking Hx > 30 pack years -last lung cancer screening CT on 10/17/23 Lung RADS 1 -Discussed about the importance of smoking cessation today. -previously tried nicotine replacement which was ineffective -tried Chantix -continue assessing her stage of change Assessment & Plan (11/22/2023 10:08 AM EDT): -Smoking Hx > 30 pack years -last lung cancer screening CT on 10/17/23 Lung RADS 1 -Discussed about the importance of smoking cessation today. -previously tried nicotine replacement which was ineffective -tried Chantix -continue assessing her stage of change Assessment & Plan (08/16/2023 12:40 PM EDT): -Smoking Hx > 30 pack years -last lung cancer screening CT on 09/24/22 Lung RADS 2 -Discussed about the importance of smoking cessation today. -previously tried nicotine replacement which was ineffective -tried Chantix -continue assessing her stage of change Assessment & Plan (05/26/2023 12:24 PM EDT): -Smoking Hx > 30 pack years -last lung cancer screening CT on 09/24/22 Lung RADS 2 -Discussed about the importance of smoking cessation today. -previously tried nicotine replacement which was ineffective -tried Chantix -continue assessing her stage of change Assessment & Plan (08/28/2022 11:08 AM EDT): -Smoking Hx > 30 pack years -last lung cancer screening CT on 08/14/20 -Discussed about the importance of smoking cessation today. -referred to low-dose CT / cancer screening program -previously tried nicotine replacement which was ineffective -tried Chantix Assessment & Plan (06/13/2022 12:49 PM EDT): -Smoking Hx > 30 pack years -last lung cancer screening CT on 08/14/20 -Discussed about the importance of smoking cessation today. -referred to low-dose CT / cancer screening program -previously tried nicotine replacement which was ineffective -tried Chantix History of Graves' disease 06/01/2022 Lesion of parotid gland 06/01/2022 Assessment & Plan (08/28/2022 11:25 AM EDT): -CT scan 04/29/21 showed Left parotid lesion. recommended US. -06/09/21, US report recommends FNA - 06/17/22, FNA negative for malignancy Assessment & Plan (06/13/2022 12:51 PM EDT): -CT scan 04/29/21 showed Left parotid lesion. recommended US. -06/09/21, US report recommends FNA - FNA was rescheduled again to 06/17/22, she was urged to keep appt Exophthalmos 06/01/2022 Assessment & Plan (08/28/2022 11:06 AM EDT): - due to Grave's disease - continue artificial tears, eye protection - check an availability of international marketing executive or plastic surgeon who can evaluate and treat Hypomagnesemia 06/01/2022 Assessment & Plan (02/13/2024 5:24 AM EST): - pt is taking thiazide-diuretic - continue magnesium oxide - encouraged to improve adherence - check lab again Assessment & Plan (11/22/2023 10:03 AM EDT): - 05/25/23 Mg 0.9, Ca 9.3; K 3.9 - pt is taking thiazide-diuretic - continue magnesium oxide - encouraged to improve adherence - check lab again Assessment & Plan (08/16/2023 12:41 PM EDT): - 05/25/23 Mg 0.9, Ca 9.3; K 3.9 - pt is taking thiazide-diuretic - continue magnesium oxide - encouraged to improve adherence - check lab again Assessment & Plan (05/25/2023 5:29 PM EDT): - 05/25/23 Mg 0.9, Ca 9.3; K 3.9 - pt is taking thiazide-diuretic - continue magnesium oxide - encouraged to improve adherence - check lab again Assessment & Plan (08/28/2022 11:08 AM EDT): - 06/01/22 Mg 0.8, Ca 8.4; K 3.6 - pt is taking thiazide-diuretic - continue magnesium oxide - encouraged to improve adherence - check lab again Assessment & Plan (06/13/2022 12:52 PM EDT): - prescribed magnesium, but pt dislikes taking it - encouraged to improve adherence - check lab again; if it is still low, pt agreed to take it as long as she can get some medication for constipation Diastasis recti 08/21/2017 Gastroesophageal reflux disease 05/06/2014 Assessment & Plan (02/14/2024 6:23 AM EST): - restarted omeprazole 20 mg daily Cystocele 12/13/2013 Hidradenitis suppurativa 12/13/2013 Depressive disorder 11/26/2013 Assessment & Plan (11/22/2023 3:52 PM EDT): - worsening depression and anxiety due to her unstable living condition and financial hardship - positive SDOH screen - patient declines service today Assessment & Plan (08/16/2023 12:46 PM EDT): - worsening depression and anxiety due to her unstable living condition and financial hardship - positive SDOH screen - will check with her [facility] manager critical care unit Chronic sinusitis 06/26/2013 Assessment & Plan (11/22/2023 10:00 AM EDT): - discourage cocaine use - consider referral to ENT Type 2 diabetes mellitus 06/26/2013 Assessment & Plan (02/14/2024 6:26 AM EST): - A1C 6.2% on 11/22/23 - A1C 5.5% on 02/13/24 - Emphasized the importance of SMBG and lifestyle modifications. - Check BS premeal and at least 1 postprandial BG. - Continue metformin ER 1000 mg BID (may be able to decrease the dose) - Consider discontinuing Trulicity 0.75 mg weekly - Last eye exam: 01/30/23. No diabetic retinopathy. Hx Graves ophthalmopathy. PVD. Seen by [facility] care on 01/03/24 - Last comprehensive foot exam: 05/25/23 - Last microalbumin test : 05/26/23 UACR 10 - Last FLP: 05/25/23 TC 121; TG 167; HDL 37; LDL 51 - Last dental exam: ? Assessment & Plan (12/20/2023 12:29 PM EDT): - A1C 6.2% on 11/22/23 - Emphasized the importance of SMBG and lifestyle modifications. - Check BS premeal and at least 1 postprandial BG. - Continue metformin ER 1000 mg BID (may be able to decrease the dose) - Continue Trulicity 0.75 mg weekly - Reviewed and updated diabetes care guideline. - Last eye exam: 01/30/23. No diabetic retinopathy. Hx Graves ophthalmopathy. PVD. - Last comprehensive foot exam: 05/25/23 - Last microalbumin test : 05/26/23 UACR 10 - Last FLP: 05/25/23 TC 121; TG 167; HDL 37; LDL 51 - Last dental exam: ? Assessment & Plan (11/22/2023 9:59 AM EDT): - A1C 6.2% on 11/22/23 - Emphasized the importance of SMBG and lifestyle modifications. - Check BS premeal and at least 1 postprandial BG. - Continue metformin ER 1000 mg BID (may be able to decrease the dose) - Continue Trulicity 0.75 mg weekly - Reviewed and updated diabetes care guideline. - Last eye exam: 01/30/23. No diabetic retinopathy. Hx Graves ophthalmopathy. PVD. - Last comprehensive foot exam: 05/25/23 - Last microalbumin test : 05/26/23 UACR 10 - Last FLP: 05/25/23 TC 121; TG 167; HDL 37; LDL 51 - Last dental exam: ? Assessment & Plan (08/16/2023 12:36 PM EDT): - A1C 6.0% on 08/15/2023, 5.8 on 05/25/23, 6.2% on 06/01/22 - Emphasized the importance of SMBG and lifestyle modifications. - Check BS premeal and at least 1 postprandial BG. - Continue metformin ER 1000 mg BID (may be able to decrease the dose) - Continue Trulicity 0.75 mg weekly - Reviewed and updated diabetes care guideline. - Last eye exam: 01/30/23. No diabetic retinopathy. Hx Graves ophthalmopathy. PVD. - Last comprehensive foot exam: 05/25/23 - Last microalbumin test : 05/26/23 UACR 10 - Last FLP: 05/25/23 TC 121; TG 167; HDL 37; LDL 51 - Last dental exam: ? Assessment & Plan (05/26/2023 12:02 PM EDT): - A1C 5.8 on 05/25/23, 6.2% on 06/01/22 - Emphasized the importance of SMBG and lifestyle modifications. - Check BS premeal and at least 1 postprandial BG. - Continue metformin ER 1000 mg BID (may be able to decrease the dose) - Continue Trulicity 0.75 mg weekly - Reviewed and updated diabetes care guideline. - Last eye exam: 01/30/23. No diabetic retinopathy. Hx Graves ophthalmopathy. PVD. - Last comprehensive foot exam: 05/25/23 - Last microalbumin test : 07/16/21 UACR 26 - Last FLP: 05/25/23 TC 121; TG 167; HDL 37; LDL 51 - Last dental exam: ? Immunizations: - Influenza - up-to-date - Pneumovax - up-to-date - Hep A/B - Completed Assessment & Plan (08/28/2022 11:02 AM EDT): - A1C 6.2% on 06/01/22, 6.3% 01/17/22 - Emphasized the importance of SMBG and lifestyle modifications. - Check BS premeal and at least 1 postprandial BG. - Continue metformin ER 1000 mg BID - Continue Trulicity 0.75 mg weekly - Reviewed and updated diabetes care guideline. - Last eye exam: 04/29/20. No diabetic retinopathy, but has Graves ophthalmopathy. PVD. - Last comprehensive foot exam: 06/01/22 - Last microalbumin test : 07/16/21 UACR 26 - Last FLP: 06/01/22 TC 101; TG 203; HDL 32; LDL 42 - Last dental exam: ? Immunizations: - Influenza - up-to-date - Pneumovax - up-to-date - Hep B - Completed Assessment & Plan (06/13/2022 12:58 PM EDT): - A1C 6.2% on 06/01/22, 6.3% 01/17/22 - Emphasized the importance of SMBG and lifestyle modifications. - Check BS premeal and at least 1 postprandial BG. - Continue metformin ER 1000 mg BID - Continue Trulicity 0.75 mg weekly - Reviewed and updated diabetes care guideline. - Last eye exam: 04/29/20. No diabetic retinopathy, but has Graves ophthalmopathy. PVD. - Last comprehensive foot exam: 06/01/22 - Last microalbumin test : 07/16/21 UACR 26 - Last FLP: 07/16/21; TG 137; TG 309, HDL 39, LDL 65. - Last dental exam: ? Immunizations: - Influenza - up-to-date - Pneumovax - up-to-date - Hep B - Completed Postablative hypothyroidism 07/04/2012 Assessment & Plan (02/13/2024 5:12 AM EST): - History of Graves' disease - Radioactive iodine ablation in 2009 - Started seeing a new outpatient interviewing clerk, Dr. Mccracken, initial visit on 02/08/24. - Current replacement: Levothyroxine 100 mcg daily. - last TSH - Dr. Mccracken recommends that patient completes 6 weeks of levothyroxine 100 mcg, then recheck thyroid function test before adjusting its dose. Patient was referred to Dr. Herbert for Graves' eye disease. - Assessment & Plan (02/13/2024 5:09 AM EST): >>ASSESSMENT AND PLAN FOR HYPOTHYROIDISM WRITTEN ON 12/20/2023 12:30 PM BY MATY CRANDALL - History of Graves' disease - Radioactive iodine ablation in 2009 - Medications: Levothyroxine 112 mcg daily. - last TSH 0.02 on 11/22/23 - Continue current replacement - Pt was referred to a new outpatient interviewing clerk and was seen on 02/21/19. - Because she is euthyroid, she was discharged Assessment & Plan (11/22/2023 9:58 AM EDT): - History of Graves' disease - Radioactive iodine ablation in 2009 - Medications: Levothyroxine 125 mcg daily. - last TSH 0.06 on 09/22/23 - Check lab and adjust medication accordingly - [place] interviewing [place] [facility] [facility], and was discharged due to her stability and no concern for thyroid cancer. - Of note, patient is on GLP-1 RA Assessment & Plan (08/16/2023 12:39 PM EDT): - History of Graves' disease - Radioactive iodine ablation in 2009 - Medications: Levothyroxine 125 mcg daily. - last TSH 0.05 on 06/21/23 - Check lab and adjust medication accordingly - Previously seeing outpatient interviewing clerk at [facility] then [facility], and was discharged due to her stability and no concern for thyroid cancer. - Of note, patient is on GLP-1 RA Assessment & Plan (02/13/2024 5:09 AM EST): >>ASSESSMENT AND PLAN FOR POSTABLATIVE HYPOTHYROIDISM WRITTEN ON 05/26/2023 12:07 PM BY YENI WASHINGTON MD - History of Graves' disease - Radioactive iodine ablation in 2009 - Medications: Levothyroxine 137 mcg daily. - last TSH 0.43 on 06/01/22 - Continue current replacement - Previously seeing outpatient interviewing clerk at [facility] [facility], and was discharged due to her stability and no concern for thyroid cancer. >>ASSESSMENT AND PLAN FOR HYPOTHYROIDISM WRITTEN ON 05/25/2023 5:52 AM BY YENI WASHINGTON MD - History of Graves' disease - Radioactive iodine ablation in 2009 - Medications: Levothyroxine 137 mcg daily. - last TSH 0.43 on 06/01/22 - Continue current replacement - Pt was referred to a new outpatient interviewing clerk and was seen on 02/21/19. - Because she is euthyroid, she was discharged Assessment & Plan (08/28/2022 11:01 AM EDT): - Medications: Levothyroxine 137 mcg daily. - last TSH 0.43 on 06/01/22 - Continue current replacement - Pt was referred to a new outpatient interviewing clerk and was seen on 02/21/19. - Because she is euthyroid, she was discharged. Assessment & Plan (06/13/2022 12:48 PM EDT): - Medications: Levothyroxine 137 mcg daily. - last TSH 3.11 on 07/16/20 - Continue current replacement - Pt was referred to a new outpatient interviewing clerk and was seen on 02/21/19. - Because she is euthyroid, she was discharged. Allergic rhinitis 12/01/2011 Dyslipidemia 12/01/2011 Assessment & Plan (02/13/2024 9:30 AM EST): Current medication: switched to atorvastatin on 11/22/23. This may be an offending agent. Will consider holding the medication. Previous medication: pravastatin 80 mg qhs Lab: 05/25/23 TC 121; TG 167; HDL 37; LDL 51 Continue working on lifestyle modificaiton Consider higher potency statin due to mild CAD, although her LDL is at goal Assessment & Plan (12/20/2023 12:26 PM EDT): Current medication: switched to atorvastatin on 11/22/23. This may be an offending agent. Will consider holding the medication. Previous medication: pravastatin 80 mg qhs Lab: 05/25/23 TC 121; TG 167; HDL 37; LDL 51 Continue working on lifestyle modificaiton Consider higher potency statin due to mild CAD, although her LDL is at goal Assessment & Plan (11/22/2023 3:52 PM EDT): Current medication: pravastatin 80 mg at bedtime, held since recent hospitalization. Will consider switching to atorvastatin 10 mg at bedtime after reviewing lab. Titrate up atorvastatin as tolerated Lab: 05/25/23 TC 121; TG 167; HDL 37; LDL 51 Continue working on lifestyle modificaiton Consider higher potency statin due to mild CAD, although her LDL is at goal Assessment & Plan (08/16/2023 12:45 PM EDT): Current medication: pravastatin 80 mg qhs Lab: 05/25/23 TC 121; TG 167; HDL 37; LDL 51 Continue working on lifestyle modificaiton Consider higher potency statin due to mild CAD, although her LDL is at goal Assessment & Plan (05/26/2023 12:13 PM EDT): Current medication: pravastatin 80 mg qhs Lab: 05/25/23 TC 121; TG 167; HDL 37; LDL 51 Continue working on lifestyle modificaiton Consider higher potency statin due to mild CAD, although her LDL is at goal Assessment & Plan (08/28/2022 11:04 AM EDT): Current medication: pravastatin Lab: 06/01/22 TC 101; TG 203; HDL 32; LDL 42 Continue working on lifestyle modificaiton Hypertension 12/01/2011 Assessment & Plan (02/14/2024 6:21 AM EST): - Goal BP < 140/90 per JNC-8, < 130/80 per ACC/AHA. - BP controlled, but soft today - Currently prescribed medications: amlodipine 5 mg daily; olmesartan 20 mg daily; clonidine 0.2 mg qhs - Treatment Hx: diltiazem was changed to amlodipine in Sep 2023 due to bradycardia when she was hospitalized; lisinopril was held in Sep 2023 due to CHEMO, likely pre-renal. Lisinopril - hctz combo was started in Oct 2023, yet discontinued due to rash. Changed losartan to olmesartan. Spironolactone was discontinued due to elevated K. - Discussed about the importance of lifestyle modification and medication adherence. - Avoid cardiotoxic drug use (cocaine) - Check BP at home since she has BP monitor. - co management with our pharmacist through CDTM - Requested VNS to check and record home BP. - Reconcile her medications because she may be still taking spironolactone. - Consider decreasing or tapering down clonidine. - Consider lowering amlodipine or olmesartan dose (check lab today and adjust accordingly) Assessment & Plan (12/25/2023 6:00 PM EDT): - Goal BP < 140/90 per JNC-8, < 130/80 per ACC/AHA. - BP at goal today - Currently prescribed medications: amlodipine 5 mg daily; ; spironolactone 25 mg daily; losartan - Change losartan to olmesartan - Treatment Hx: diltiazem was changed to amlodipine in Sep 2023 due to bradycardia when she was hospitalized; lisinopril was held in Sep 2023 due to CHEMO, likely pre-renal. Lisinopril - hctz combo was started in Oct 2023, yet discontinued due to rash. - Discussed about the importance of lifestyle modification and medication adherence. - Avoid cardiotoxic drug use (cocaine) - Check BP at home since she has BP monitor. - co management with our pharmacist through CDTM - BP check Assessment & Plan (11/22/2023 10:12 AM EDT): - Goal BP < 140/90 per JNC-8, < 130/80 per ACC/AHA. BP not at goal. - Current medications: amlodipine 5 mg daily; HCTZ 25 mg daily; clonidine 0.2 mg at bedtime; spironolactone 25 mg daily - Consider restarting lisinopril at lower dose, and combining with HCTZ - Treatment Hx: diltiazem was changed to amlodipine in Sep 2023 due to bradycardia when she was hospitalized; lisinopril was held in Sep 2023 due to CHEMO, likely pre-renal. - Discussed about the importance of lifestyle modification and medication adherence. - Avoid cardiotoxic drug use (cocaine) - Check BP at home since she has BP monitor. - co management with our pharmacist through CDTM - Follow up in 3 mo or sooner if any problem arises Assessment & Plan (08/15/2023 7:20 PM EDT): - Goal BP < 140/90 per JNC-8, < 130/80 per ACC/AHA. BP not at goal. - Current medications: lisinopril 40 mg daily; diltiazem 360 mg daily; HCTZ 25 mg daily; clonidine 0.2 mg qhs - Max dose of lisinopril, diltiazem, and hydrochlorothiazide - Consider lisinopril and hctz to combination medication - Consider increasing clonidine or changing hydrochlorothiazide to spironolactone, or spironolactone in addition to hctz. - Discussed about the importance of lifestyle modification and medication adherence. - Avoid cardiotoxic drug use (cocaine) - Check BP at home since she has BP monitor. - co management with our pharmacist through CDTM - Follow up in 3 mo or sooner if any problem arises Assessment & Plan (05/26/2023 12:00 PM EDT): - Goal BP < 140/90 per JNC-8, < 130/80 per ACC/AHA. BP not at goal. - Current medications: lisinopril 40 mg daily; diltiazem 360 mg daily; HCTZ 25 mg daily; clonidine 0.2 mg qhs - Max dose of lisinopril, diltiazem, and hydrochlorothiazide - Consider lisinopril and hctz to combination medication - Consider increasing clonidine or changing hydrochlorothiazide to spironolactone, or spironolactone in addition to hctz. - Discussed about the importance of lifestyle modification and medication adherence. - Avoid cardiotoxic drug use (cocaine) - Check BP at home since she has BP monitor. - co management with our pharmacist through CDTM - Follow up in 3 mo or sooner if any problem arises Assessment & Plan (08/28/2022 10:54 AM EDT): - Goal BP < 140/90 per JNC-8, < 130/80 per ACC/AHA. BP not at goal. - Current medications: lisinopril 40 mg daily; diltiazem 360 mg daily; HCTZ 25 mg daily; clonidine 0.2 mg qhs - Max dose of lisinopril, diltiazem, and HCTZ - Discussed about the importance of lifestyle modification and medication adherence. - Avoid cardiotoxic drug use (cocaine) - Check BP at home since she has BP monitor. - co management with our pharmacist through CDTM - Follow up in 3-6 mo or sooner if any problem arises Assessment & Plan (06/13/2022 12:56 PM EDT): - Goal BP < 140/90 per JNC-8, < 130/80 per ACC/AHA. BP not at goal. - Current medications: lisinopril 40 mg daily; diltiazem 360 mg daily; HCTZ 25 mg daily; clonidine 0.2 mg qhs - Max dose of lisinopril, diltiazem, and HCTZ - Discussed about the importance of lifestyle modification and medication adherence. - Avoid cardiotoxic drug use (cocaine) - Check BP at home since she has BP monitor. - co management with our pharmacist through CDTM - Follow up in 3-6 mo or sooner if any problem arises Substance use 12/01/2011 Obstructive sleep apnea syndrome 10/05/2011 Assessment & Plan (11/22/2023 9:31 AM EDT): - [place] [facility] [place] - home sleep study on 12/15/22, auto PAP 5-20 cm H2O was recommended - recent compliance report shows 100% adherence - continue AutoPAP Assessment & Plan (08/16/2023 12:31 PM EDT): - [place] [facility] [place] seen in May 2023 - home sleep study on 12/15/22, auto PAP 5-20 cm H2O was recommended - recent compliance report shows 100% adherence - continue AutoPAP Assessment & Plan (05/26/2023 11:42 AM EDT): - [place] [facility] [place] sleep study on 12/15/22, auto PAP 5-20 cm H2O was recommended - recent compliance report shows 100% adherence - continue AutoPAP Assessment & Plan (08/28/2022 10:31 AM EDT): - continue CPAP - script for a new mask / accessory have been signed and faxed; check the status of delivery since pt has moved to a new address Assessment & Plan (06/13/2022 12:56 PM EDT): - continue CPAP - she needs a new mask / accessory Resolved Problems Problem Noted Date Diagnosed Date Resolved Date Asthma 02/11/2015 06/01/2022 Obesity 12/01/2011 06/13/2022 Encounters Date Type Department Care Team Description 03/17/2024 Refill [facility] [address] [place] [id number] Yeni Washington MD Controlled type 2 diabetes mellitus with hyperglycemia, without long-term current use of insulin (CMS/HCC) 03/04/[address] [address] Yeni Washington MD callback reqested 03/01/2024 Orders Only [address] [address] Yeni Washington MD Primary hypertension (Primary Dx); Type 2 diabetes mellitus without complication, without long-term current use of insulin (CMS/HCC); Asthma-COPD overlap syndrome (CMS/HCC); Tobacco use 02/23/[address] [address] Yeni Washington MD 02/19/2024 11:00 AM EST Office Visit [facility] [address] [place] [phone] Crystal Melendrez Periodontal disease (Primary Dx); Dental calculus 02/13/2024 9:00 AM EST Office Visit [address] [address] Yeni Washington MD Postablative hypothyroidism (Primary Dx); Type 2 diabetes mellitus without complication, without long-term current use of insulin (CMS/HCC); Primary hypertension; Metabolic dysfunction-associated steatotic liver disease (MASLD); Tobacco use; Dyslipidemia; Hypomagnesemia; Acute kidney injury (CMS/HCC); Routine screening for STI (sexually transmitted infection); Encounter for immunization; Pancreatic insufficiency; Gastroesophageal reflux disease, unspecified whether esophagitis present 02/13/2024 Orders Only GENERIC EXTERNAL DATA DEPARTMENT Provider, Generic External Data 02/13/[address] [address] Yeni Washington MD Appointment Request 02/13/2024 Travel 02/10/2024 Refill [facility] [address] [place], [place] [phone] Yeni Washington MD At high risk for cardiovascular disease 02/08/2024 Telephone [facility] [place] [address] Yeni Washington MD Medication Question 02/08/2024 Telephone [facility] [place] [address] Claudia Archibald MA chart prep 02/07/2024 Orders Only [facility] [place] [address] Yeni Washington MD Hyperkalemia (Primary Dx); Stage 3a chronic kidney disease ([facility]) 02/07/2024 Telephone [facility] [place] [address] Lili Barrientos RN Appointment Request 02/07/2024 Orders Only [facility] [place] [address] Yeni Washington MD 02/06/2024 11:15 AM EST Office Visit [facility] [place] [address] Heidy Garza ANP Postablative hypothyroidism (Primary Dx); Hypomagnesemia; Hyperkalemia; Gastroesophageal reflux disease, unspecified whether esophagitis present 02/06/2024 Orders Only [facility] [place] [address] Heidy Garza ANP 02/06/2024 Travel 01/31/2024 Telephone [facility] [place] [address] Ada Swain, RN Results 01/30/2024 Orders Only [facility] [place] [address] Yuridia Kendall MD Hyperkalemia (Primary Dx) 01/30/2024 Telephone [facility] [place] [address] Yuridia Kendall MD 01/15/2024 Telephone [facility] [address] [facility] [place] [address] Traci Lentz RN Results; Lab Orders 01/15/2024 Telephone [facility] [address] [place], [place] [phone] Lili Barrientos RN Critical lab result f/u 01/12/2024 11:30 AM EST Clinical Support [facility] [address] [place], [place] [address] Lili Barrientos RN Primary hypertension 01/12/2024 Orders Only [facility] [address] [place] [address] Yuridia Kendall MD Postablative hypothyroidism (Primary Dx); Hypomagnesemia 01/12/2024 Telephone [facility] [address] [place] [address] Yeni Washington MD CRITICAL RESULT 01/12/2024 Travel 01/11/2024 Telephone [facility] [address] [facility] [place] [place] [address] Yeni Washington MD Physician Order. 01/09/2024 Orders Only [facility] [address] [place] [address] Yeni Washington MD Pruritic rash (Primary Dx) 01/08/2024 Refill [facility] [address] [place] [address] Quoc Bermudez, Shannen Primary hypertension 12/29/2023 Orders Only [facility] [place] [place] [address] Yeni Washington MD 12/26/2023 Telephone [facility] [address] [facility] [place] [address] Yeni Washington MD Medication Question 12/25/2023 Refill [facility] [place] [address] Heidy Garza ANP Controlled type 2 diabetes mellitus with hyperglycemia, without long-term current use of insulin (CMS/HCC) 12/20/2023 11:30 AM EDT Office Visit [facility] [address] [place], [place] [address] Yeni Washington MD Type 2 diabetes mellitus without complication, without long-term current use of insulin (CMS/HCC) (Primary Dx); Primary hypertension; Postablative hypothyroidism; Chronic low back pain, unspecified back pain laterality, unspecified whether sciatica present; Pruritus; Rash; Dyslipidemia 12/20/2023 Travel 12/19/2023 Telephone [facility] [address] [place] [address] Yeni Washington MD Nurse Triage 12/19/2023 Refill [facility] [address] [place] [address] Yeni Washington MD from Last 3 Months Immunizations Name Administration Dates Next Due Hep A, Adult 02/13/2024,05/25/2023 Hep B, adult 02/13/2024, 5,08/15/2014,07/08 Influenza injectable quadriv alent IIV4 with preservative 11/20/2017,12/29/2016,11/16/2015,02/11 Influenza injectable quadriv alent preservative free 01/17/2022,12/10/2020,01/30/2020,01/22 Influenza, IIV3, injectable 11/26/2013,1 ,11/23/2009,10/30 Influenza, Split (incl. tracie fied surface antigen) 11/16/2012,12/01/2011 Influenza, seasonal, injecta ble, preservative free 11/22/2023 Moderna Covid-19 Vaccine 12+ 03/12/2021,07/17/19 21,06/18/2020 Pfizer Covid-19 Vaccine 12+ 11/22/2023, 4 Pneumococcal Conjugate PCV 20 02/14/2022 Pneumococcal Polysaccharide PPSV23 01/01/2009 Pneumococcal, Unspecified 01/01/2009 RSV Bivalent 03/05/2024 TD (adult), 2 Lf tetanus tox oid, preservative free, adsorbed 01/17/2022,01/07/2004 Tdap 04/25/2011 Zoster, Recombinant 12/30/2022,02/14/2022 Family History Medical History Relation Name Comments Glaucoma Mother Relation Name Status Comments Mother Social History Tobacco Use Types Packs/Day Years Used Date Smoking Tobacco: Every Day Cigarettes 0.5 30 Passive Smoke Exposure: Current Smokeless Tobacco: Never Tobacco Cessation:Ready to Q uit: Not Asked; Counseling Given: Not Answered Alcohol Use Standard Drinks/Week Comments Not Currently [...] Orientation Straight 12/27/2021 10 :14 AM EDT Last Filed Vital Signs Vital Sign Reading Time Taken Comments Blood Pressure 122/70 02/19/2024 11:17 AM EST Pulse 91 02/13/2024 9:17 AM EST Temperature 36.1 ??C (96.9 ??F) 02/13/2024 9:17 AM ES T Respiratory Rate 17 02/13/2024 9:17 AM EST Oxygen Saturation 99% 02/13/2024 9:17 AM EST Inhaled Oxygen Concentration - - Weight 70.8 kg (156 lb) 02/13/2024 9:17 AM EST Height 162.6 cm (5' 4 ) 12/20/2023 11:49 AM EDT Body Mass Index 26.78 12/20/2023 11:49 AM EDT Plan of Treatment Upcoming Encounters Date Type Department Care Team (Late st Contact Info) Description 03/27/2024 10:30 AM EST Medication Management [facility] [address] [place] [phone] Quoc Bermudez, RazD [address] [place] [address] 04/23/2024 11:15 AM EST Office Visit [facility] [address] [place] [address] Yeni Washington MD [address] [place] [address] 08/20/2024 1:00 PM EDT Office Visit [facility] [address] [place] [address] Crystal Melendrez [address] [place] [address] Health Maintenance Due Date Last Done Comments CT Colonography 1963 Colonoscopy 1963 Colorectal Cancer Screening 1963 FIT DNA/Cologuard 1963 FIT 1963 FOBT 1963 Sigmoidoscopy 1963 Dental X-Ray: Full Mouth 08/29/2023 08/27/2020 Dental Oral Exam 12/16/2023 06/15/2023, 10/2021, 08/27/2020, Additional history exists Depression Screening 05/24/2024 05/25/2023, 05/25/19 Diabetes: Foot Exam 05/24/2024 05/25/2023, 05/25/2023, 05/25/2023, Additional history exists Lipid Panel 05/24/2024 05/25/2023, 04/06/2022, 07/16/2021, Additional history exists Dental X-Ray: Bitewings 06/15/2024 06/15/19, 08/27/2020, 06/26/2018, Additional history exists Diabetes: Hemoglobin A1C 08/13/2024 024, 11/22/2023, 08/15/2023, Additional history exists SDOH Screening 08/14/2024 08/15/2023 Dental Prophylaxis 08/20/2024 02/19/2024, 0 07/06/2023, 04/07/2021, Additional history exists Mammogram 11/22/2024 11/22/2022, 10/28, 09/22/2020, Additional history exists Eye Exam 01/09/2025 01/09/2023, 12/28, 01/09/2023, Additional history exists Alcohol/Substance Use Screening 02/12/2025 02/13/2024 Diabetes: Urine Protein Screening 02/18/2025 02/19/2024, 05/26/2023, 07/16/2021, Additional history exists Tobacco Screening 02/18/2025 02/19/2024 Cervical Cancer Screening 06/22/2025 HPV/Cotest 06/22/2025 06/22/2020, 12/29/2016 Pap Smear 06/22/2025 06/22/2020 DTaP/Tdap/Td Vaccines (3 - Td or Tdap) 01/18/2032 01/17/2022, 04/25/2011, 01/07/2004 Pneumococcal Vaccine: Pediatrics (0 to 5 Years) and At-Risk Patients (6 to 64 Years) Completed 02/14/2022, 01/01/2009, 01/01/2009 Zoster Vaccines Completed 12/30/2022, 02/14/2022 HIV Screening Completed 04/12/2023, 06/28, 12/11/2020, Additional history exists COVID-19 Vaccine Completed 11/22/2023, , 01/17/2022, Additional history exists Influenza Vaccine Completed 11/22/2023, , 12/10/2020, Additional history exists Hepatitis A Vaccines Completed 02/13/2024, 05/25/19 Hepatitis B Vaccines Completed 02/13/2024, 02/11/2015, 08/15/2014, Additional history exists Hepatitis C Screening Completed 02/13/2024 , 04/12/2023, 07/16/2021, Additional history exists RSV Patients and Patients Aged 60 years or older Completed 03/05/2024 HIB Vaccines Aged Out No longer eligi ble based on patient's age to complete this topic HPV Vaccines Aged Out No longer eligi ble based on patient's age to complete this topic IPV Vaccines Aged Out No longer eligi ble based on patient's age to complete this topic Meningococcal Vaccine Aged Out No mercedes lyn eligible based on patient's age to complete this topic RSV under 20 months Aged Out No longe r eligible based on patient's age to complete this topic Rotavirus Vaccines Aged Out No longer eligible based on patient's age to complete this topic Goals Goal Patient Goal Type Associated Problems Recent Progress Patient-Stated? Author Blood Pressure < 140/90 Blood Pressure 122/70(2023 11:17 AM EST) No Quoc Bermudez PharmD Hemoglobin A1c < 7 Result Component 5.5( 9:19 AM EST) No Quoc Bermudez PharmD Procedures Procedure Name Priority Date/Time Associated Diagnosis Comments TOPICAL APPLICATION OF FLUORIDE VARNISH Routine 02/19/2024 11:00 AM EST Periodontal disease Dental calculus ORAL HYGIENE INSTRUCTIONS Routine 02/19/2024 11:00 AM EST Periodontal disease PROPHYLAXIS - ADULT Routine 02/19/2024 1 1:00 AM EST Periodontal disease Dental calculus ALBUMIN, RANDOM URINE W/CREATININE Routine 02/19/2024 9:10 AM EST Acute kidney injury (CMS/HCC) TRAB (TSH RECEPTOR BINDING ANTIBODY) Routine 02/13/2024 10:03 AM EST TSI (THYROID STIMULATING IMMUNOGLOBULIN) Routine 02/13/2024 10:03 AM EST THYROID PEROXIDASE ANTIBODIES Routine 02/13/2024 10:03 AM EST T3, TOTAL Routine 02/13/2024 10:03 AM EST TSH Routine 02/13/2024 10:03 AM EST T4, FREE Routine 02/13/2024 10:03 AM EST HEPATITIS C AB W/REFL TO HCV RNA, QN, PCR Routine 02/13/2024 10:03 AM EST Routine screening for STI (sexually transmitted infection) CYSTATIN C WITH EGFR Routine 02/13/2024 10:03 AM EST Acute kidney injury (CMS/HCC) VITAMIN D,25-OH,TOTAL,IA Routine 02/13/2024 10:03 AM EST Acute kidney injury (CMS/HCC) HEPATITIS B SURFACE ANTIGEN, EIA Routine 02/13/2024 10:03 AM EST Metabolic dysfunction-associate d steatotic liver disease (MASLD) Routine screening for STI (sexually transmitted infection) MAGNESIUM Routine 02/13/2024 10:03 AM EST Hypomagnesemia COMPREHENSIVE METABOLIC PANEL Routine 02/13/2024 10:03 AM EST Metabolic dysfunction-associate d steatotic liver disease (MASLD) Acute kidney injury (CMS/HCC) CBC WITH AUTO DIFFERENTIAL Routine 02/13/2024 10:03 AM EST Acute kidney injury (CMS/HCC) MAGNESIUM Routine 02/13/2024 10:03 AM EST Hypomagnesemia POCT GLYCOSYLATED HEMOGLOBIN (HGB A1C) Routine 02/13/2024 9:19 AM EST Type 2 diabetes mellitus without complication, without long-term current use of insulin (CMS/HCC) POCT GLUCOSE Routine 02/13/2024 9:18 AM EST Type 2 diabetes mellitus without complication, without long-term current use of insulin (CMS/HCC) T4, FREE Routine 02/06/2024 12:07 PM EST TSH W/REFLEX TO FT4 Routine 02/06/2024 1 2:07 PM EST Postablative hypothyroidism BASIC METABOLIC PANEL Routine 02/06/2024 12:07 PM EST Hyperkalemia MAGNESIUM Routine 02/06/2024 12:07 PM EST Hypomagnesemia Hypocalcemia T4, FREE Routine 01/30/2024 10:20 AM EST Postablative hypothyroidism TSH Routine 01/30/2024 10:20 AM EST Postablative hypothyroidism MAGNESIUM Routine 01/30/2024 10:20 AM EST Hypomagnesemia BASIC METABOLIC PANEL Routine 01/30/2024 10:20 AM EST Hypomagnesemia TSH Routine 01/12/2024 11:55 AM EST Hypomagnesemia Hypocalcemia T4, FREE Routine 01/12/2024 11:55 AM EST Hypomagnesemia Hypocalcemia MAGNESIUM Routine 01/12/2024 11:55 AM EST Hypomagnesemia Hypocalcemia BASIC METABOLIC PANEL Routine 01/12/2024 11:55 AM EST Hypomagnesemia Hypocalcemia CANCELLED CHEMISTRY Routine 12/29/2023 3 :06 PM EDT BITEWINGS - 4 RADIOGRAPHIC IMAGES Routine 06/15/2023 10:00 AM EDT PERIODIC ORAL EVALUATION - ESTABLISHED PATIENT Routine 06/15/2023 10:00 AM EDT LIPID PANEL WITH REFLEX TO DIRECT LDL Routine 05/25/2023 10:30 AM EDT Dyslipidemia HIV 1/2 ANTIGEN/ANTIBODY, FOURTH GENERATION W/RFL Routine 04/12/2023 4:03 PM EST BI MAMMOGRAM SCREENING TOMOSYNTHESIS BILATERAL Routine 11/22/2022 10:15 AM EDT DIAGNOSTIC - DIAGNOSTIC IMAGING - INTRAORAL - COMPREHENSIVE SERIES OF RADIOGRAPHIC IMAGES Routine 08/27/2020 12:00 AM EDT HPV MRNA E6/E7 Routine 06/22/2020 6:38 AM EDT THINPREP PAP Routine 06/22/2020 6:38 AM EDT from Last 3 Months or Most Recently Relevant to Health Maintenance Results * Albumin, Random Urine W/Creatinine (02/19/2024 9:10 AM EST) Creatinine, Urine 128.57 mg/dL [facility] Microalbumin Urine 14.0 mg/L [facility] Microalbum Creatinine Ratio Ur 10.8 <30 ug/mg cr [facility] Comment:Albumin/Creatinine R atio Reference Ranges: Normal: < 30 ug/mg creatinine Microalbuminuria: 30 - 300 ug/mg creatinineClinical Albuminuria: > 300 ug/mg creatinine Urine 02/19/2024 9:10 AM EST 02/19/2024 1:31 PM EST Yeni Washington MD LAB URINE ORDERABLES Final Resul t [facility] [address] [place] [phone] * Vitamin D, 25-Hydroxy, Total, Immunoassay (02/13/2024 10:03 AM EST) Vitamin D 25-OH Total 43.6 >30 ng/mL [facility] Comment:Health Based Referen ce Values*< 20 ng/mL Slkkkxwoa01-25 ng/mL Insufficient> 30 ng/mL Sufficient*Param FARRELL. N Engl J Med. 2007;357:266-280Care must be taken in interpreting Vitamin D results fromdifferent laboratories and methodologies. Published datademonstrated that results from patients undergoinghemodialysis may show a negative bias when tested withvarious automated 25-OH vitamin D assays when compared toLC-MS/MS.When testing samples from patients whose predominant form ofVitamin D is Vitamin D2, such as patients receiving VitaminD2 supplementation, results that are subtherapeutic shouldbe confirmed with another method such as LC-MS/MS. Blood Venous blood specimen / Unknown 02/13/2024 10:03 AM EST 02/13/2024 11:03 AM EST us Yeni Washington MD LAB BLOOD ORDERABLES Final Resul t Performing Organization Address [facility] Co de Phone Number [facility] [address] [place] [phone] * Cystatin C with Glomerular Filtration Rate, Estimated (eGFR) (02/13/2024 10:03 AM EST) Pathologist [facility] Cystatin C 1.99 (H) [facility] Comment:REFERENCE RANGE: 0.5 2-1.14 mg/LTHIS TEST PERFORMED AT:[facility] [address] [phone] DIRECTOR: CAITLYN ZHU MD, PHD eGFR 29 (L) [facility] Comment:REFERENCE RANGE: >=6 0 mL/min/1.24oI4VSOO TEST PERFORMED AT:[facility] [employer] [address] [phone] DIRECTOR: CAITLYN ZHU MD, PHD 02/13/2024 10:0 3 AM EST 02/13/2024 11:00 AM EST us Yeni Washington MD LAB BLOOD ORDERABLES Final Resul t Performing Organization Address City/[facility]/ZIP Co de Phone Number [facility] [address] [place] [phone] * (ABNORMAL) CBC auto differential (02/13/2024 10:03 AM EST) [facility] White Blood Count 10.0 4.8 - 10.8 X10*3/uL [facility] Red Blood Count 4.09(L) 4.20 - 5.50 X10*6/uL [facility] Hemoglobin 11.8(L) 12.0 - 16.0 g/dl [facility] Hematocrit 37.7 37.0 - 47.0 % [facility] Mean Corpuscular Volume 92.2 80.0 - 98.0 fL [facility] Mean Corpuscular Hemoglobin 28.9 27.0 - 33.0 pg [facility] Mean Corpuscular HGB Conc 31.3 31.0 - 35.0 g/dl [facility] Red Cell Distribution Width 12.7 11.0 - 16.0 % [facility] Platelet Count 258 160 - 400 X10*3/uL [facility] Mean Platelet Volume 11.6 9.4 - 12.3 fL [facility] Neutrophils Percent Auto 59.4 45 - 73 % [facility] Imm Gran Pct Auto 0.6(H) 0.0 - 0.4 % [facility] Lymphocytes Percent Auto 30.8 20 - 40 % [facility] Monocytes Percent Auto 4.1 2 - 11 % [facility] Eosinophils Percent Auto 4.4(H) 0 - 4 % [facility] Basophils Percent Auto 0.7 0 - 2 % [facility] NRBC Pct Auto 0.0 0.0 - 0.2 /100WBC [facility] Neutrophils Absolute Auto 6.0 2.0 - 8.3 x10*3/uL [facility] Imm Gran Abs Auto 0.06(H) 0.00 - 0.03 X10*3/uL [facility] Lymphocytes Absolute Auto 3.1 1.2 - 4.9 X10*3/uL [facility] Monocytes Absolute Auto 0.4 0.1 - 1.2 X10*3/uL [facility] Eosinophils Absolute Auto 0.4 0.0 - 0.4 X10*3/uL [facility] Basophils Absolute Auto 0.1 0.0 - 0.2 X10*3/uL [facility] NRBC Abs Auto 0.000 0.0 - 0.012 X10*3/uL [facility] Blood Venous blood specimen / Unknown 02/13/2024 10:03 AM EST 02/13/2024 11:00 AM EST us Yeni Washington MD LAB BLOOD ORDERABLES Final Resul t Performing Organization Address [facility] Co de Phone Number [facility] [address] [place] [phone] * Hepatitis C Antibody with Reflex to HCV, RNA, Quantitative, Real-Time PCR (02/13/2024 10:03 AM EST) Hepatitis C Antibody Nonreactive Nonreactive [facility] Comment:Antibodies to HCV no t detected; does not exclude early acuteHCV infection. Blood Venous blood specimen / Unknown 02/13/2024 10:03 AM EST 02/13/2024 11:03 AM EST us Yeni Washington MD LAB BLOOD ORDERABLES Final Resul t Performing Organization Address [facility] Co de Phone Number [facility] [address] [place] [phone] * Thyroid Peroxidase Antibodies (02/13/2024 10:03 AM EST) Thyroid Peroxidase Antibodies 1 <9 IU/mL [facility] Comment:THIS TEST WAS PERFOR MED AT:[employer] [place] [phone] GANDHI MD 02/13/2024 10:0 3 AM EST 02/13/2024 11:00 AM EST us Generic External Data Provider LAB BLOOD ORDERAB LES Final Result Performing Organization Address [facility] Co de Phone Number [facility] [address] [place] [phone] * (ABNORMAL) TSI (Thyroid Stimulating Immunoglobulin) (02/13/2024 10:03 AM EST) Thyroid Stimulating Immunoglobulin 337(A) <140 % baseline [facility] Comment: Thyroid stimulating immunoglobulins (TSI) can engagethe TSH receptors resulting in hyperthyroidism inGraves' disease patients. TSI levels can be useful inmonitoring the clinical outcome of Graves' disease aswell as assessing the potential for hyperthyroidismfrom maternal- transfer. TSI results greater thanor equal to (>=) 140% of the Reference Control areconsidered positive.NOTE:A serum TSH level greater than 350 micro-InternationalUnits/mL can interfere with the TSI bioassay andpotentially give false positive results.Patients who are and are suspected of havinghyperthyroidism should have both TSI and humanChorionic Gonadotropin(hCG) tests measured. A serumhCG level greater than 40,625 mIU/mL can interferewith the TSI bioassay and may give false negativeresults. In these patients it is recommended thata second TSI be obtained when the hCG concentrationfalls below 40,625 mIU/mL (usually after cuedrtaplrirm49-anipt gestation).The analytical performance characteristics of thisassay have been determined by [place]. ??The modificationshave not been cleared or approved by the FDA. ??Thisassay has been validated pursuant to the CLIAregulations and is used for clinical purposes.THIS TEST WAS PERFORMED AT:[facility] [place], [place] ??[phone] ZHU MD,PHD 02/13/2024 10:0 3 AM EST 02/13/2024 11:00 AM EST us Generic External Data Provider LAB BLOOD ORDERAB LES Final Result [facility] [address] [place] [phone] * (ABNORMAL) TRAb (TSH Receptor Binding Antibody) (02/13/2024 10:03 AM EST) TRAb (TSH Receptor Binding Antibody) 16.19(A) <=2.00 IU/L [facility] Comment:This test was perfor med using the TRAb Antibody ELISAmethod which is standardized against the 1stInternational Standard 90/672 and is reported inInternational Units (IU/L). The reference rangereported was established specifically for this testmethod.THIS TEST WAS PERFORMED AT:[facility] [place] [address]QBSIYHFCAITLYN ZHU MD,PHD 02/13/2024 10:0 3 AM EST 02/13/2024 11:00 AM EST us Generic External Data Provider LAB BLOOD ORDERAB LES Final Result Performing Organization Address City/[facility]/ZIP Co de Phone Number [facility] [address] [place] [phone] * Hepatitis B surface antigen, EIA (02/13/2024 10:03 AM EST) Pathologist [facility] Hepatitis B Surface Ag Negative Negative [facility] Blood Venous blood specimen / Unknown 02/13/2024 10:03 AM EST 02/13/2024 11:03 AM EST us Yeni Washington MD LAB BLOOD ORDERABLES Final Resul t Performing Organization Address [facility] de Phone Number [facility] [address] [place] [phone] * T3, Total (02/13/2024 10:03 AM EST) Pathologist [facility] T3, Total 99 76 - 181 ng/dL [facility] Comment:THIS TEST WAS PERFOR MED AT:[facility] [address] [phone] GANDHI MD 02/13/2024 10:0 3 AM EST 02/13/2024 11:00 AM EST us Generic External Data Provider LAB BLOOD ORDERAB LES Final Result Performing Organization Address [facility] Co de Phone Number [facility] [address] [place] [phone] * (ABNORMAL) TSH (02/13/2024 10:03 AM EST) Only the most recent of3 resultswithin the time period is included. Thyroid Stimulating Hormone 0.12(L) 0.32 - 4.0 uIU/mL [facility] Comment:TSH 3rd Generation ( [facility]) 02/13/2024 10:0 3 AM EST 02/13/2024 11:00 AM EST us Generic External Data Provider LAB BLOOD ORDERAB LES Final Result Performing Organization Address [facility] Co de Phone Number [facility] [address] [place] [phone] * T4, Free (02/13/2024 10:03 AM EST) Only the most recent of4 resultswithin the time period is included. Free T4 (Free Thyroxine) 1.37 0.71 - 1.85 ng/dL [facility] 02/13/2024 10:0 3 AM EST 02/13/2024 11:00 AM EST us Generic External Data Provider LAB BLOOD ORDERAB LES Final Result Performing Organization Address [facility] de Phone Number [facility] [address] [place] [address] [phone] * Magnesium (02/13/2024 10:03 AM EST) Only the most recent of5 resultswithin the time period is included. Magnesium 2.0 1.6 - 2.6 mg/dL [facility] Blood Venous blood specimen / Unknown 02/13/2024 10:03 AM EST 02/13/2024 11:00 AM EST us Yeni Washington MD LAB BLOOD ORDERABLES Final Resul t Performing Organization Address [facility] Co de Phone Number [facility] [address] [place] [phone] * (ABNORMAL) Comprehensive Metabolic Panel (02/13/2024 10:03 AM EST) Sodium 138 135 - 145 mmol/L [facility] Potassium 4.9 3.3 - 5.1 mmol/L [facility] Chloride 107 96 - 108 mmol/L [facility] Carbon Dioxide 24 22 - 29 mmol/L [facility] Anion Gap 12 12 - 20 [facility] Urea Nitrogen (BUN) 29(H) 9 - 16 mg/dL [facility] Creatinine, Serum 1.02 0.5 - 1.4 mg/dL [facility] Estimated Glomerular Filt Rate 55 [facility] Comment:Chronic Kidney Disea se: Estimated GFR < 60 mL/min/1.48b8Sloqdf Kidney Disease: Estimated GFR < 15 mL/min/1.73m2 Glucose 87 60 - 115 mg/dL [facility] Calcium 9.2 8.4 - 10.2 mg/dL [facility] Bilirubin, Total 0.5 0.0 - 1.0 mg/dL [facility] Aspartate Amino Transferase 22 5 - 31 U/L [facility] Alanine Aminotransferase 23 0 - 31 U/L [facility] Total Protein 7.6 6.5 - 8.0 g/dL [facility] Albumin Level 3.9 3.5 - 5.0 g/dL [facility] Alkaline Phosphatase 67 39 - 117 U/L [facility] Blood Venous blood specimen / Unknown 02/13/2024 10:03 AM EST 02/13/2024 11:00 AM EST us Yeni Washington MD LAB BLOOD ORDERABLES Final Resul t [facility] [address], [place] [phone] * POCT glycosylated hemoglobin (Hgb A1c) (02/13/2024 9:19 AM EST) Hemoglobin A1C 5.5 4.0 - 6.0 % [employer] Lot # [id number] Lot# Expiration Date [id number] Blood Capillary blood specimen / Unknown 02/13/2024 9:19 AM EST Yeni Washington MD POINT OF CARE TEST ENTER/EDIT OR DERABLES Final Result * POCT glucose manually resulted (02/13/2024 9:18 AM EST) Glucose Blood, POC 105 60 - 200 mg/dL [employer] Lot # [id number] Lot# Expiration Date [id number] Blood Capillary blood specimen / Unknown 02/13/2024 9:18 AM EST Yeni Washington MD POINT OF CARE TEST ENTER/EDIT OR DERABLES Final Result * (ABNORMAL) TSH W/Reflex to FT4 (02/06/2024 12:07 PM EST) TSH reflex Free T4 0.06(L) 0.32 - 4.0 uIU/mL [facility] Blood Venous blood specimen / Unknown 02/06/2024 12:07 PM EST 02/06/2024 1:03 PM EST Heidy WHITTAKER LAB BLOOD ORDERABLES Final Resul t [facility] [address] [place] [address] [phone] * (ABNORMAL) Basic Metabolic Panel (02/06/2024 12:07 PM EST) Only the most recent of3 resultswithin the time period is included. Sodium 140 135 - 145 mmol/L [facility] Potassium 5.5(H) 3.3 - 5.1 mmol/L [facility] Chloride 104 96 - 108 mmol/L [facility] Carbon Dioxide 27 22 - 29 mmol/L [facility] Anion Gap 15 12 - 20 [facility] Urea Nitrogen (BUN) 26(H) 9 - 16 mg/dL [facility] Creatinine, Serum 1.28 0.5 - 1.4 mg/dL [facility] Estimated Glomerular Filt Rate 43 [facility] Comment:Chronic Kidney Disea se: Estimated GFR < 60 mL/min/1.55v2Fcvecc Kidney Disease: Estimated GFR < 15 mL/min/1.73m2 Glucose 90 60 - 115 mg/dL [facility] Calcium 10.4(H) 8.4 - 10.2 mg/dL [facility] Blood Venous blood specimen / Unknown 02/06/2024 12:07 PM EST 02/06/2024 1:03 PM EST us Yuridia Kruse MD LAB BLOOD ORDERAB LES Final Result Performing Organization Address [facility]/ZIP Co de Phone Number [facility] [address] [place] [phone] * Cancelled Chemistry (12/29/2023 3:06 PM EDT) Cancelled Chemistry SEE NOTE [facility] Comment:Cancel BMP, MG, Free T4, TSH. No specimen received. 12/29/2023 3:06 PM EDT 12/29/2023 7:10 PM EDT us Yeni Washington MD HISTORICAL/NON ORDERABLE LABS Fi nal Result Performing Organization Address [facility]/ZIP Co de Phone Number [facility] [address] [place] [phone] * (ABNORMAL) Lipid Panel with Reflex to Direct LDL (05/25/2023 10:30 AM EDT) Triglycerides 167(H) <150 mg/dL [facility] Comment:Desirable Triglyceri de: less than 150 mg/dLBorderline High Triglyceride 150-199 mg/dLHigh Triglyceride: 200-499 mg/dLVery High Triglyceride: greater than or equal to 5OO mg/dL Cholesterol 121 <200 mg/dL [facility] Comment:Desirable Cholestero l: less than 200 mg/dLBorderline High Cholesterol: 200-239 mg/dLHigh Cholesterol: greater than 239 mg/dL LDL Cholesterol Calculated 51 <100 mg/dL [facility] Comment:Desirable LDL: less than 100 mg/dLNear Optimal/Above Optimal LDL: 110- 129 mg/dLBorderline High LDL: 130-159 mg/dLHigh LDL: 160-189 mg/dLVery High LDL: greater than or equal to 190 mg/dL HDL Cholesterol 37(L) >40 mg/dL [facility] Comment:Desirable HDL: great er than 40 mg/dL Note: This HDL assay may give artificially low results in patients with liver disease. Blood 05/25/2023 10:3 0 AM EDT 05/25/2023 11:17 AM EDT us Yeni Washington MD LAB BLOOD ORDERABLES Final Resul t [facility] [address] [place] [address] [phone] * HIV-1/2 Antigen and Antibodies, Fourth Generation, with Reflexes (04/12/2023 4:03 PM EST) Pathologist [facility] HIV AB/AG Nonreactive Nonreactive [facility] Comment:HIV-1 p24 Ag and/or HIV-1/HIV-2 Ab not detected.A test result that is nonreactive does not exclude thepossibility of exposure to or infection with HIV-1 and/orHIV-2. Nonreactive results in this assay for individualswith prior exposure to HIV-1 and/or HIV-2 may be due toantigen and antibody levels that are below the limit ofdetection of this assay.The [employer] HIV Ag/Ab Combo assay result andsupplemental assay results should be interpreted inconjunction with the patient's clinical presentation,history and other laboratory results. If the results areinconsistent with clinical evidence, additional testing issuggested to confirm the result. 04/12/2023 4:03 PM EST 04/12/2023 4:03 PM EST us Generic External Data Provider LAB BLOOD ORDERAB LES Final Result [facility] [address] [place] [phone] * BI Mammogram Screening Tomosynthesis Bilateral (11/22/2022 10:15 AM EDT) Anatomical Region Laterality Modality Breast Bilateral Mammography 11/22/2022 10:1 5 AM EDT Narrative 12/14/2022 9:30 PM EDT ? [facility] ? [address] ?[place] [address] ? Mammography Report ? Signed ? Patient: Barth,Jennifer I ?MR#: [id number] ? : 1965 ?Acct:[id number] ? Age/Sex: 57 / F ?ADM Date: 11/22/22 ? Loc: HO.MAMMO ? Attending Dr: Yeni Washington MD ? Ordering Physician: Yeni Washington MD ?Results: 2Benign F ?? indings ? Date of Service: 11/22/22 ?Follow Up: 1 Year From Orig ?? inal Mammogram ? Procedure(s): MM tomosynthesis screening BI ?? Accession Number(s): [id number] ? cc: Yeni Washington MD ? EXAMINATION: ?? MM SCREENING DIGITAL BREAST TOMOSYNTHESIS, BILATERAL ? CLINICAL INFORMATION: ? Screening. Asymptomatic. ? COMPARISON: ?? Mammography: This study is compared with prior exams dating back to ?? 2019. ? TECHNIQUE: ?? Digital breast tomosynthesis is performed in both the craniocaudal and ?? mediolateral oblique views along with computer-aided detection (CAD). ?? Synthesized 2D images are generated from the tomosynthesis. ? FINDINGS: ?? There are scattered areas of fibroglandular density (ACR BI-RADS breast ?? composition Category b). ? There are no significant masses, abnormal calcifications, or other ?? abnormalities. ?? There are 2 tissue markers present in the right breast from prior ?? benign percutaneous biopsies. ? MM/MM tomosynthesis screening BI ?? IMPRESSION: ?? No mammographic evidence of malignancy. ? ASSESSMENT: ? BI-RADS BI-RADS 2 - Benign Findings ? RECOMMENDATION: ?? Routine annual mammography screening. ? 1 year F/U ? This examination should not preclude the clinical evaluation of a ?? suspicious palpable abnormality. ? This patient's information was entered into a reminder system with a ?? target due date for their next mammogram. ? Dictated By: ?Debi Funk MD ? Signed By: ?<Electronically signed by Debi Funk MD in OV> ? 12/14/226 ? DD/ 1015 ? TD/TT: ? Network Director: ? Procedure Note Santiago Ruelas - 12/14/2022 [facility] [address] [place] [address] Mammography Report Signed Patient: Jennifer Barth IMR#: [id number] : 1965Acct:[id number] Age/Sex: 57 / FADM Date: 11/22/22 Loc: [facility] Attending Dr: Yeni Washington MD Ordering Physician: Yeni Washington MDResults: 2Benign F indings Date of Service: 11/22/22Follow Up: 1 Year From Orig inal Mammogram Procedure(s): MM tomosynthesis screening BI Accession Number(s): [id number] cc: Yeni Washington MD EXAMINATION: MM SCREENING DIGITAL BREAST TOMOSYNTHESIS, BILATERAL CLINICAL INFORMATION: Screening. Asymptomatic. COMPARISON: Mammography: This study is compared with prior exams dating back to 2019. TECHNIQUE: Digital breast tomosynthesis is performed in both the craniocaudal and mediolateral oblique views along with computer-aided detection (CAD). Synthesized 2D images are generated from the tomosynthesis. FINDINGS: There are scattered areas of fibroglandular density (ACR BI-RADS breast composition Category b). There are no significant masses, abnormal calcifications, or other abnormalities. There are 2 tissue markers present in the right breast from prior benign percutaneous biopsies. MM/MM tomosynthesis screening BI IMPRESSION: No mammographic evidence of malignancy. ASSESSMENT: BI-RADS BI-RADS 2 - Benign Findings RECOMMENDATION: Routine annual mammography screening. 1 year F/U This examination should not preclude the clinical evaluation of a suspicious palpable abnormality. This patient's information was entered into a reminder system with a target due date for their next mammogram. Dictated By: Debi Funk MD Signed By: <Electronically signed by Debi Funk MD in OV> 12/14/22 2126 DD/ 1015 TD/TT: Network Director: Yeni Washington MD [facility] BI PROCEDURES Edited Result - Final * THINPREP PAP (06/22/2020 6:38 AM EDT) Clinical Information: None given [facility] COMMENT SEE COMMENT [facility] Comment: EXPLANATORY NOTE: ? The Pap is a screening test for cervical cancer. It is ?? not a diagnostic test and is subject to false negative ?? and false positive results. It is most reliable when a ?? satisfactory sample, regularly obtained, is submitted ?? with relevant clinical findings and history, and when ?? the Pap result is evaluated along with historic and ?? current clinical information. ?? Extractor Filler : SEE COMMENT [facility] Comment: DMM, CT(ASCP) CT screening location: [address] ??[address] Interpretation/R esult: Negative for intraepithelial lesion or malignancy. [facility] LMP: NONE GIVEN [facility] Prev. BX: NONE [facility]IVEN [facility] Prev. PAP: NONE GIVEN [facility] SOURCE: None given [facility] Statement Of Adequacy: SEE COMMENT [facility] Comment: Satisfactory for evaluation. Endocervical/transformation zone component present. Age and/or menstrual status not provided 06/22/2020 6:38 AM EDT us Yeni Washington MD LAB PATHOLOGY ORDERABLES Final R esult Performing Organization Address [facility] Co de Phone Number [facility] [address] * HPV mRNA E6/E7 (06/22/2020 6:38 AM EDT) HPV nRNA E6/E7 Not Detected Not Detected [facility] Comment: Methodology: Staffing Coordinator-Mediated Amplification This assay detects E6/E7 viral messenger RNA (mRNA) from 14 high-risk HPV types (16,18,31,33,35,39,45,51,52,56,58,59,66,68). ? The analytical performance characteristics of this assay have been determined by [employer]. The modifications have not been cleared or approved by the FDA. This assay has been validated pursuant to the CLIA regulations and is used for clinical purposes. ?? For additional information, please refer to http://education.GenerationStation.Wynlink/faq/BDV101w0 (This link if provided for information/ educational purposes only.) 06/22/2020 6:38 AM EDT Yeni Washington MD LAB BLOOD ORDERABLES Final Resul t Performing Organization Address [facility]/ZIP Co de Phone Number [facility] [address] from Last 3 Months or Most Recently Relevant to Health Maintenance Insurance * Guarantor: Jennifer Barth I Account Type Relation to Patient Date of Phone Billing Address Personal/Family Self [address] Care Teams Mill Operator Relationship Specialty Start Date End Date Yeni Washington MD [address], [place] PCP - General Family Medicine 02/27/18 Quoc Bermudez, RazD [address], [place] Pharmacist Internal Medicine 02/14/22 [facility] 11/02/23
--- OUTSIDE RECORDS SUMMARY | 2024-03-19 11:25 | XMS_ITS | Encounter Summary ---
Author Organization [employer] Address [address] [facility] [address] 7t [place] [address] Care Team Providers Care Remote Sensing Engineer Name Role Phone Yeni Willoughby MD Primary Care Provider [phone] Quoc Bermudez PharmD Unavailable Reason for Visit * Reason Comments Med Refill Encounter Details Date Type Department Care Team ([facility] st Contact Info) Description 12/18/2022 Refill [facility] [address] [place] [address] Heidy Garza, ANP [address] [place] [address] Social History Tobacco Use Types Packs/Day Years Used Date Smoking Tobacco: Every Day Cigarettes 0.5 30 Passive Smoke Exposure: Current Smokeless Tobacco: Never Alcohol Use Standard Drinks/Week Comments Not Currently 0 (1 standard drink = 0.6 oz pur e alcohol) Depression Answer Date Recorded Patient Health Questionnaire-9 Score 3 06/01/2022 Housing Stability Answer Date Recorded What is [...] Description 03/27/2024 10:30 AM EST Medication Management [facility] [address] [place] [address] Quoc Bermudez, PharmD [address] [place] [address] 04/23/2024 11:15 AM EST Office Visit [facility] [address] [place] [address] Yeni Willoughby MD [address] [place] [address] 08/20/2024 1:00 PM EDT Office Visit [facility] ADULT DENTAL [address] [place] [address] Crystal Melendrez [address] [place] [address] documented as of this encounter Goals Goal Patient Goal Type Associated Problems Recent Progress Patient-Stated? Author Blood Pressure < 140/90 Blood Pressure 122/70( 024 11:17 AM EST) No Quoc Bermudez, PharmD documented as of this encounter Visit Diagnoses Not on filedocumented in this encounter Additional Health Concerns Assessment Noted Time PHQ-9 Depression Total Score: 3 06/02/19 23 11:01 AM EDT documented as of this encounter Care Teams Remote Sensing Engineer Relationship Specialty Start Date End Date Yeni Willoughby MD [address] [place] [address] PCP - General Family Medicine 02/27/18 Quoc Bermudez, RazD [address] [place] [address] Pharmacist Internal Medicine 02/14/22 [facility] 11/02/23 documented as of this encounter
--- OUTSIDE RECORDS SUMMARY | 2024-03-19 11:25 | XMS_ITS | Encounter Summary ---
Author Organization [employer] [facility] Address [address] [place] [address] 7t [place] [address] Care Team Providers Care Mat Maker Name Role Phone Yeni Willoughby MD Primary Care Provider [phone] Quoc Bermudez PharmD Unavailable [phone] Reason for Referral * Consultation (Routine) - Authorized Specialty Diagnoses / Procedures Referred By Contac t Referred To Contact Allergy Diagnoses Pruritic rash Yeni Willoughby MD [address] [place] [address] Phone: tel: fax: Saúl Suarez MD [address] [place] [address] Drive [address] [place] [address] Phone: tel: fax: Referral ID Status Reason Start Date Expiration Date Visits Requested Visits Authorized [id number] Authorized Specialty Services Required 4 01/08/2025 1 1 Encounter Details Date Type Department Care Team (Late st Contact Info) Description 01/09/2024 Orders Only [facility] [address] [place] [address] [phone] Yeni Willoughby MD [address] [place], [place] [phone] Pruritic rash (Primary Dx) Social History Tobacco Use Types Packs/Day Years [...] t he electric, gas, oil or water [employer] threatened to shut off services in your [...] 03/27/2024 10:30 AM EST Medication Management [facility] [address] [place] [address] Quoc Bermudez, PharmD [address] [place] [address] 04/23/2024 11:15 AM EST Office Visit [facility] [address] [place] [address] Yeni Willoughby MD [address] [place] [address] 08/20/2024 1:00 PM EDT Office Visit [facility] [address] [place] [address] Crystal Melendrez [address] [place] [address] Scheduled Referrals Name Type Priority Associated Diagnoses Orde r Schedule Referral to Allergy Outpatient Referral Routine Pruritic rash Expected: 01/09/2024 (Approximate), Expires: 01/08/2025 documented as of this encounter Goals Goal Patient Goal Type Associated Problems Recent Progress Patient-Stated? Author Blood Pressure < 140/90 Blood Pressure 122/70(2023 11:17 AM EST) No Quoc Bermudez PharmD Hemoglobin A1c < 7 Result Component 5.5( 9:19 AM EST) No Quoc Bermudez PharmD documented as of this encounter Visit Diagnoses Diagnosis Pruritic rash- Primary documented in this encounter Additional Health Concerns Assessment Noted Time PHQ-9 Depression Total Score: 0 05/25/19 9:46 AM EDT documented as of this encounter Care Teams Mat Maker Relationship Specialty Start Date End Date Yeni Willoughby MD [address] [place] [address] PCP - General Family Medicine 02/27/18 Quoc Bermudez, RazD [address] [place] [address] Pharmacist Internal Medicine 02/14/22 [facility] 11/02/23 documented as of this encounter
--- OUTSIDE RECORDS SUMMARY | 2024-03-19 11:25 | XMS_ITS | Encounter Summary ---
Author Organization [employer] Address [address] [facility] 7t [place] [address] Care Team Providers Care Trailhead Construction Worker Name Role Phone Yeni Willoughby MD Primary Care Provider [phone] Quoc Bermudez PharmD Unavailable [phone] Encounter Details Date Type Department Care Team ([facility] Contact Info) Description 02/07/2024 Orders Only [facility] [address] [place], [place] [phone] Yeni Willoughby MD [address] [place] [address] Social History Tobacco Use Types Packs/Day Years [...] Description 03/27/2024 10:30 AM EST Medication Management [facility] [address] [place] [address] Quoc Bermudez, PharmD [address] [place] [address] 04/23/2024 11:15 AM EST Office Visit [facility] [address] [place] [address] Yeni Willoughby MD [address] [place] [address] 08/20/2024 1:00 PM EDT Office Visit [facility] AD[facility] D[facility] [address] [place] [address] Crystal Melendrez [address] [place] [address] documented as of this encounter Goals Goal Patient Goal Type Associated Problems Recent Progress Patient-Stated? Author Blood Pressure < 140/90 Blood Pressure 122/70(2023 11:17 AM EST) No Quoc Bermudez, PharmD Hemoglobin A1c < 7 Result Component 5.5( 9:19 AM EST) No Quoc Bermudez, PharmD documented as of this encounter Visit Diagnoses Not on filedocumented in this encounter Additional Health Concerns Assessment Noted Time PHQ-9 Depression Total Score: 0 05/25/19 24 9:46 AM EDT documented as of this encounter Care Teams Trailhead Construction Worker Relationship Specialty Start Date End Date Yeni Willoughby MD [address] [place] [address] PCP - General Family Medicine 02/27/18 Quoc Bermudez, PharmD [address] [place] [address] Pharmacist Internal Medicine 02/14/[address] [facility] 11/02/23 documented as of this encounter
--- OUTSIDE RECORDS SUMMARY | 2024-03-19 11:25 | XMS_ITS | Encounter Summary ---
Author Organization [employer] Address [address] [facility] 7t [place] [address] Care Team Providers Care Optical Scientist Name Role Phone Yeni Willoughby MD Primary Care Provider [phone] Quoc Bermudez PharmD Unavailable [phone] Reason for Visit * Reason Comments Routine Cleaning Encounter Details Date Type Department Care Team ([facility] st Contact Info) Description 02/19/2024 11:00 AM EST Office Visit [facility] ADULT DENTAL [address] [place] [address] Parvin, Crystal [address] [place] [address] Periodontal disease (Primary Dx); Dental calculus Social History Tobacco Use Types Packs/Day Years [...] AM EDT documented as of this encounter Last Filed Vital Signs Vital Sign Reading Time Taken Comments Blood Pressure 122/70 02/19/2024 11:17 AM EST Pulse - - Temperature - - Respiratory Rate - - Oxygen Saturation - - Inhaled Oxygen Concentration - - Weight - - Height - - Body Mass Index - - documented in this encounter Progress Notes * Crystal Melendrez - 02/19/2024 11:00 AM EST Patient ID: Jennifer Barth is a 58 y.o. female. Time Out: Timeout Date: 02/19/24, Timeout Time: 1120 (prophy, perio chart) Location: [facility] Tooth: Maxilla and Mandible Procedure: Prophylaxis, PERIO CHART Verified the above with patient, assistant mechanic, and provider. Confirmed via patient's chart, intraorally and by radiographs. Jig Grinder: not applicable Medical Hx: Vitals: Blood pressure 122/70. Medications, Med Hx reviewed with patient and updated in chart. Treatment Provided Dental procedures in this visit D1110 - PROPHYLAXIS - ADULT (Completed) Service provider: Crystal [place] provider: Mau Howard DMD D1330 - ORAL HYGIENE INSTRUCTIONS (Completed) Service provider: Crystal [place] provider: Mau Howard DMD D1206 - TOPICAL APPLICATION OF FLUORIDE VARNISH (Completed) Service provider: Crystal [place] provider: Mau Howard DMD Instruments Used: Ultrasonic Scalers and Prophy angle Fluoride: 5% NaF varnish applied and POI given Oral Cancer Screening: No lesions Head/Neck Exam: moles on nose, under left and righr eye and many freckles on cheeks. Calculus: Light Plaque: Light Stain: Light Bleeding: Light Gingiva: magenta OH: Good Perio Chart: Completed #31 still has a vey deep pocket, asymptomatic at this time. Oral hygiene instructions provided to patient including brushing technique and flossing. Recommendations: Moselle two times daily, modified epperson technique, Floss daily, Electric toothbrush, Soft bristle toothbrush, Moselle Tongue, Anti-sensitivity toothpaste Recall Frequency: 6 mo Pt states, she does not want a filling on #9 or a crown. NV: 6 months for FMX, iesha. P. exam Hygienist: Crystal Melendrez RDH documented in this encounter Plan of Treatment Upcoming Encounters Date Type Department Care Team (Late st Contact Info) Description 03/27/2024 10:30 AM EST Medication Management [facility] [address] [place] [address] Quoc Bermudez, PharmD [address] [place] [address] 04/23/2024 11:15 AM EST Office Visit [facility] [address] [place] [address] Yeni Willoughby MD [address] [place] [address] 08/20/2024 1:00 PM EDT Office Visit [facility] AD[facility] [address] [place] [address] Crystal Melendrez [address] [place] [address] Scheduled Orders Name Type Priority Associated Diagnoses Orde r Schedule PERIODIC ORAL EVALUATION - ESTABLISHED PATIENT Dental Routine 1 Occurren reshma starting 02/19/2024 INTRAORAL - COMPLETE SERIES OF RADIOGRAPHIC IMAGES Dental Routine [address] arting 02/19/2024 PROPHYLAXIS - ADULT Dental Routine 1 Occ urrences starting 02/19/2024 CASE PRESENTATION, DETAILED AND EXTENSIVE TREATMENT PLANNING Dental Routine 1 Occurrences starting 02/19/2024 TOPICAL APPLICATION OF FLUORIDE VARNISH Dental Routine 1 Occurrences s tarting 02/19/2024 ORAL HYGIENE INSTRUCTIONS Dental Routine 1 Occurrences starting 02/19/2024 documented as of this encounter Goals Goal [...] 11:00 AM EST Periodontal disease Dental calculus PROPHYLAXIS - ADULT Routine 02/19/2024 1 1:00 AM EST Periodontal disease Dental calculus ORAL HYGIENE INSTRUCTIONS Routine 02/19/2024 11:00 AM EST Periodontal disease documented in this encounter Visit Diagnoses Diagnosis Periodontal disease- Primary Unspecified gingival and periodontal disease Dental calculus Accretions on teeth documented in this encounter Additional Health Concerns Assessment Noted Time PHQ-9 Depression Total Score: 0 05/25/19 9:46 AM EDT documented as of this encounter Care Teams Optical Scientist Relationship Specialty Start Date End Date Yeni Willoughby MD [address] [place] [address] PCP - General Family Medicine 02/27/18 Quoc Bermudez, Shannen [address] [place] [address] Pharmacist Internal Medicine 02/14/22 [facility] 11/02/23 documented as of this encounter
--- OUTSIDE RECORDS SUMMARY | 2024-03-19 11:25 | XMS_ITS | Encounter Summary ---
Author Organization [employer] [facility] Address [address] [place] [address] 7t [place] [address] Care Team Providers Care Silo Filler Name Role Phone Yeni Willoughby MD Primary Care Provider [phone] Quoc Bermudez PharmD Unavailable [phone] Reason for Referral * Consultation (Routine) - Authorized Specialty Diagnoses / Procedures Referred By Contjuan diego t Referred To Contact Pharmacy Diagnoses Primary hypertension Type 2 diabetes mellitus without complication, without long-term current use of insulin (CMS/HCC) Asthma-COPD overlap syndrome (CMS/HCC) Tobacco use Yeni Willoughby MD [address] [place] [address] Phone: tel: fax: Referral ID Status Reason Start Date Expiration Date Visits Requested Visits Authorized [id number] Authorized Consult and Treat 03/01/2024 03/01/2025 6 6 Encounter Details Date Type Department Care Team (Late st Contact Info) Description 03/01/2024 Orders Only [facility] [address] [place] [address] Yeni Willoughby MD [address] [place], [place] [phone] Primary hypertension (Primary Dx); Type 2 diabetes mellitus without complication, without long-term current use of insulin (CMS/HCC); Asthma-COPD overlap syndrome (CMS/HCC); Tobacco use Social History Tobacco Use Types Packs/Day Years [...] Description 03/27/2024 10:30 AM EST Medication Management [facility] [address] [place] [address] Quoc Bermudez, PharmD [address] [place] [address] 04/23/2024 11:15 AM EST Office Visit [facility] [address] [place] [address] Yeni Willoughby MD [address] [place] [address] 08/20/2024 1:00 PM EDT Office Visit [facility] ADULT DENT[facility] [address] [place] [address] Crystal Melendrez [address] [place] [address] Scheduled Referrals Name Type Priority Associated Diagnoses Orde r Schedule Referral to Pharmacy CDTM Outpatient Referral Routine Primary hypertension Type 2 diabetes mellitus without complication, without long-term current use of insulin (CMS/HCC) Asthma-COPD overlap syndrome (CMS/HCC) Tobacco use Ordered: 03/01/2024 documented as of this encounter Goals Goal Patient Goal Type Associated Problems Recent Progress Patient-Stated? Author Blood Pressure < 140/90 Blood Pressure 122/70(2023 11:17 AM EST) No Quoc Bermudez PharmD Hemoglobin A1c < 7 Result Component 5.5( 9:19 AM EST) No Quoc Bermudez PharmD documented as of this encounter Visit Diagnoses Diagnosis Primary hypertension- Primary Unspecified essential hypertension Type 2 diabetes mellitus without complication, without long-term current use of insulin (CMS/HCC) Asthma-COPD overlap syndrome (CMS/HCC) Tobacco use documented in this encounter Additional Health Concerns Assessment Noted Time PHQ-9 Depression Total Score: 0 05/25/19 9:46 AM EDT documented as of this encounter Care Teams Silo Filler Relationship Specialty Start Date End Date Yeni Willoughby MD [address] [place] [address] PCP - General Family Medicine 02/27/18 Quoc Bermudez, RazD [address] [place] [address] Pharmacist Internal Medicine 02/14/22 [facility] 11/02/23 documented as of this encounter
--- OUTSIDE RECORDS SUMMARY | 2024-03-19 11:26 | XMS_ITS | Encounter Summary ---
Author Organization [employer] [facility] Address [address] [place] [address] 7t [place] [address] Care Team Providers Care Superintendent Compressor Stations Name Role Phone Yeni Willoughby MD Primary Care Provider [phone] Quoc Bermudez PharmD Unavailable [phone] Encounter Details Date Type Department Care Team (Latest Contact Info) Description 08/27/2020 Abstract [facility] CONVERSIONS Dental, Provider, DDS Social History Tobacco Use Types Packs/Day Years Used Date Smoking Tobacco: Never Assessed Comments Unknown Sex and Gender Information Value Date Recorded Sex Assigned at Female 12/27/2021 10:14 AM EDT Legal Sex Female 10:14 AM EDT Gender Identity Female 12/27/2021 10:14 AM EDT Sexual Orientation Straight 12/27/2021 10 :14 AM EDT documented as of this encounter Plan of Treatment Upcoming Encounters Date Type Department Care Team ( st Contact Info) Description 03/27/2024 10:30 AM EST Medication Management [facility] [address] [place] [address] Quoc Bermudez, PharmD [address] [place] [address] 04/23/2024 11:15 AM EST Office Visit [facility] [address] [place] [address] Yeni Willoughby MD [address] [place] [address] 08/20/2024 1:00 PM EDT Office Visit [facility] AD[facility] D[facility]AL [address] [place] [address] Parvin Crystal [address] [place] [address] documented as of this encounter Visit Diagnoses Not on filedocumented in this encounter Care Teams Superintendent Compressor Stations Relationship Specialty Start Date End Date Yeni Willoughby MD [address] [place] [address] PCP - General Family Medicine 02/27/18 Quoc Bermudez, RazD [address] [place] [address] Pharmacist Internal Medicine 02/14/22 [facility] 11/02/23 documented as of this encounter
--- OUTSIDE RECORDS SUMMARY | 2024-03-19 11:26 | XMS_ITS | Encounter Summary ---
Author Organization [employer] [facility] Address [address] [place] [address] 7t [place] [address] Care Team Providers Care Operating System Designer Name Role Phone Yeni Willoughby MD Primary Care Provider [phone] Quoc Bermudez PharmD Unavailable [phone] Encounter Details Date Type Department Care Team (Latest Contact Info) Description 06/26/2018 Abstract [facility] CONVERSIONS Dental, Provider, DDS Social History Tobacco [...] Encounters Date Type Department Care Team ( Contact Info) Description 03/27/2024 10:30 AM EST Medication Management [facility] MEDICINE [address] [place] [address] Quoc Bermudez, PharmD [address] [place] [address] 04/23/2024 11:15 AM EST Office Visit [facility] MED[facility]INE [address] [place] [address] Yeni Willoughby MD [address] [place] [address] 08/20/2024 1:00 PM EDT Office Visit [facility] ADULT DENTAL [address] [place] [address] Parvin Crystal [address] [place] [address] documented as of this encounter Visit Diagnoses Not on filedocumented in this encounter Care Teams Operating System Designer Relationship Specialty Start Date End Date Yeni Willoughby MD [address] [place] [address] PCP - General Family Medicine 02/27/18 Quoc Bermudez, RazD [address] [place] [address] Pharmacist Internal Medicine 02/14/22 [facility] 11/02/23 documented as of this encounter
[2024-03-19 11:45] LABS: Free T4 (Free Thyroxine) 1.34 ng/dL (0.71-1.85); Thyroid Stimulating Hormone 0.28 uIU/mL (0.32-4.0)
[2024-03-20 10:28] LABS: Triiodothyronine T3 Total 81 ng/dL (76-181)
== END 2024-03-19 09:16 | disposition home or self-care (01) ==
LOC: HO.LAB 09:15
PROVIDERS: PCP Family Medicine; Visit Provider Student in an Organized Health Care Education/Training Program
DX: E05.00 Thyrotoxicosis with diffuse goiter without thyrotoxic crisis or storm (principal); E89.0 Postprocedural hypothyroidism
CPT/HCPCS: 36415; 84439; 84443; 84480; 99212

== ENCOUNTER 2024-05-20 09:33 | Outpatient (REF) | payer OTHER, SELFPAY ==
--- NOTE | ~2024-05-20 | CT_ITS ---
EXAMINATION: CT SINUSES WITHOUT IV CONTRAST HISTORY: CHRONIC SINUSITIS TECHNIQUE: Serial 1.5 mm helically acquired images were obtained through the paranasal sinuses without IV contrast material. Sagittal and coronal reformatted images were also obtained. This CT exam was performed with one or more of the following dose reduction techniques: automated exposure control, adjustment of the mA and/or kV according to patient size, use of iterative reconstruction technique. DLP: 81 mGy-cm COMPARISON: Correlation is made with a CTA of the head and neck dated 10/21/2023. FINDINGS: PARANASAL SINUSES: There is opacification of a single posterior right ethmoid air cell. The left ethmoid sinuses and bilateral frontal, maxillary, and sphenoid sinuses are well-aerated and clear. No mucosal thickening or air/fluid levels are identified. The ostiomeatal complexes are patent bilaterally. The mastoid air cells and middle ear cavities are well pneumatized bilaterally. BONES/JOINTS: There is minimal nasal septal deviation to the left. No acute fractures are identified. INCLUDED ORBITS AND INTRACRANIUM : Unremarkable. The olfactory grooves appear within normal limits bilaterally. OTHER COMMENTS AND FINDINGS: None. CT/CT sinus wo IV con IMPRESSION: Opacification of a single posterior right ethmoid air cell. Otherwise unremarkable unenhanced CT of the paranasal sinuses. Electronically signed by: Jatinder Carlos MD 05/20/2024 03:00 PM EDT
[2024-05-20 11:45] LABS: Cholesterol 98 mg/dL (<200); HDL Cholesterol 38 mg/dL (>40); LDL Cholesterol Calculated 28 mg/dL (<100); Triglycerides 162 mg/dL (<150)
[2024-05-20 11:57] LABS: Alanine Aminotransferase 18 U/L (0-31); Albumin Level 4.2 g/dL (3.5-5.0); Anion Gap 14 (12-20); Aspartate Amino Transferase 23 U/L (5-31); Bilirubin Total 0.9 mg/dL (0.0-1.0); Blood Urea Nitrogen 26 mg/dL (9-16); Carbon Dioxide 26 mmol/L (22-29); Chloride 106 mmol/L (96-108); Estimated Glomerular Filt Rate 48; Glucose Random 88 mg/dL (60-115); Potassium 4.8 mmol/L (3.3-5.1); Sodium 141 mmol/L (135-145); Total Protein 8.3 g/dL (6.5-8.0)
[2024-05-20 12:13] LABS: Alkaline Phosphatase 85 U/L (39-117); Free T4 (Free Thyroxine) 1.14 ng/dL (0.71-1.85); Thyroid Stimulating Hormone 4.96 uIU/mL (0.32-4.0)
[2024-05-20 12:35] LABS: Creatinine Urine 141.41 mg/dL; Microalbum/Creatinine Ratio Ur 13.4 ug/mg cr (<30)
[2024-05-20 12:41] LABS: Reflex LDLD? No
[2024-05-21 05:19] LABS: Triiodothyronine T3 Total 63 ng/dL (76-181)
== END 2024-05-20 09:34 | disposition home or self-care (01) ==
LOC: HO.CT 09:33
PROVIDERS: Absent Provider Student in an Organized Health Care Education/Training Program; PCP Family Medicine; Visit Provider Family Medicine
DX: J32.9 Chronic sinusitis, unspecified (principal); E05.00 Thyrotoxicosis with diffuse goiter without thyrotoxic crisis or storm; E89.0 Postprocedural hypothyroidism; E11.9 Type 2 diabetes mellitus without complications
CPT/HCPCS: 36415; 70486; 80053; 80061; 82043; 82570; 84439; 84443; 84480

== ENCOUNTER → 2024-05-20 09:39 | Outpatient (BNV) | payer OTHER, SELFPAY | PROVIDERS: Absent Provider Student in an Organized Health Care Education/Training Program; PCP Family Medicine; Visit Provider Radiology Diagnostic Radiology | DX: J32.9 Chronic sinusitis, unspecified (principal) | CPT/HCPCS: 70486 ==

== ENCOUNTER 2024-05-24 14:49 | Outpatient (REF) | payer OTHER, SELFPAY | END 2024-05-24 14:50 | disposition home or self-care (01) | LOC: HO.MAMMO 14:49 | PROVIDERS: PCP Family Medicine; Visit Provider Family Medicine | DX: Z12.31 Encounter for screening mammogram for malignant neoplasm of breast (principal) | CPT/HCPCS: 77063; 77067 ==

== ENCOUNTER → 2024-05-24 15:15 | Outpatient (BNV) | payer OTHER, SELFPAY | PROVIDERS: PCP Family Medicine; Visit Provider Internal Medicine | DX: Z12.31 Encounter for screening mammogram for malignant neoplasm of breast (principal) | CPT/HCPCS: 77063; 77067 ==

== ENCOUNTER 2024-05-28 09:56 | Outpatient (AMB) | payer OTHER, SELFPAY ==
--- NOTE | 2024-05-28 10:15 | MHC.OFFVIS ---
Vital Signs 05/28/24 10:17 Height 5 ft 4 in Weight 154 lb BMI 26.4 BP 120/70 Blood Pressure Location Lt brachial Position Sitting Pulse 92 Pulse Source Pulse Oximeter Pulse Oximetry (%) 98 Oxygen Delivery Method Room Air Intake Visit Reasons: 1 yr f/u appt Intake Note: Patient presents follow up [place]. Compliance in chart Adjuster Electrical Contacts Required: Yes Adjuster Electrical Contacts Services: Adjuster Electrical Contacts Present Accompanied by: Self / Same As Patient Allergies sulfamethoxazole [From Bactrim] Allergy (Severe, Verified 05/28/24 10:21) Itching trimethoprim [From Bactrim] Allergy (Severe, Verified 05/28/24 10:21) Itching codeine [Codeine] Allergy (Intermediate, Verified 05/28/24 10:21) NAUSEA & VOMITING, vomiting fluoxetine [FLUOXETINE] Allergy (Intermediate, Verified 05/28/24 10:21) NAUSEA & VOMITING ibuprofen [IBUPROFEN] Allergy (Intermediate, Verified 05/28/24 10:21) NAUSEA & VOMITING Sulfa (Sulfonamide Antibiotics) Allergy (Mild, Verified 05/28/24 10:21) itching HPI Comments Details: 58 y/o Yi speaking female patient presents for follow up of sleep study. Adjuster Electrical Contacts on IPAD The home sleep study result was significant for a mild degree of sleep apnea. The AHI was 6/hr and oxygen joel was 88%. She sleeps 7-8 hours a night with her CPAP, she gets good sleep, and goes to bed at 11:30pm, wakes up at 8:30am, she gets up 1-3x for a bathroom break. Reviewed labs with her today, as she has graves disease and feels tired all the time, she was started on Levothyroxine will f/u with PCP. Labs: BUN is 26, HDL is 38L, TSH is 4.96, with receptor antibodis 16.9. Pt reports she sleeps well with CPAP, rested, and feels more energy when she wakes up. She has some dizziness occasionally and declines PT today and feels more muscle loss since starting dulaglutide for weight loss. She has headaches with sinusitis and ethmoid pressure, declines medications today. She washes her mask, changes her filters and complains of a broken magnet on her straps, will reach out to [facility] to request new filters and masks. The CPAP compliance and therapy response (02/26/24-05/24/24) reviewed. The usage days 100% and the average usage hours 8 hrs and 22min. APAP at [id number] and median pressure was 9.6 and the residual AHI was 3.4. [facility] Medical History (Updated 05/28/24 @ 11:18 by Mary Daugherty PA-C) Graves' eye disease Transaminitis History of Graves' disease Pilonidal cyst Substance abuse [place] (obstructive sleep apnea) Nicotine dependence, cigarettes, uncomplicated History of abnormal mammogram Hidradenitis suppurativa Hyperlipidemia Hypertension Surgical History Hx of cataract surgery History of colonoscopy (~2013) History of bunionectomy (~2011) History of axillary surgery (~2013) History of cholecystectomy History of umbilical hernia repair (~2016) Family History Paternal Aunt Breast cancer Mother Cancer of mandible Other [place] (obstructive sleep apnea) Social History Household Members: Children Housing: Apartment Do you presently have visiting nurse or other home services: No Alcohol intake: current Alcohol intake frequency: does not drink Patient Tobacco Use Status: Current everyday Tobacco user Tobacco use type: Cigarette Cigarette Packs Per Day: 0.75 Cigarettes Per Day: 15 Years Smoked: 36 (onset age 19) Substance Use Type: Crack/Cocaine service: No Current occupational status: unemployed Female Reproductive History Menstrual Age of Menarche: 9 Review of Systems ENT Reports Normal hearing present Neuro Reports Normal hearing present Physical Exam Vital Signs: Last Vital Signs Pulse 92 05/28/24 10:17 BP 120/70 05/28/24 10:17 Pulse Ox 98 05/28/24 10:17 Oxygen Delivery Method Room Air 05/28/24 10:17 BMI result Body Mass Index 26.4 Const General: cooperative Nutritional Appearance: overweight Orientation/consciousness: patient oriented x3 Limitations: language barrier Eyes Pupils: Equal, round and reactive pupils present Neck Neck: Yes full ROM and Yes supple Resp Effort & Inspection: normal respiratory effort and able to speak in complete sentences Neuro Other: Bilateral Proptosis as she has Graves Disease General: patient oriented x3, gait normal, moves all extremities and no focal motor deficits Cranial nerves: Yes Equal, round and reactive pupils present, Yes Normal accommodation reflex present, Yes Bilaterally intact EOM present, Yes Normal facial strength present, Yes Midline tongue present, Yes Symmetric palate elevation present, Yes Normal hearing present, Yes Ability to bilaterally rotate head present, Yes Ability to bilaterally elevate shoulders present and Yes Other cranial nerve findings present (Proptosis ) Cognition (Neuro): normal cognition Gait exam (Neuro): Normal gait present Motor exam (neuro): Pronator motor function not present, no tremor noted, Abnormal motor strength present and Abnormal muscle tone present Psych Appearance: grossly normal Mental Status: mental status grossly normal Affect: normal affect Attitude: cooperative Results Reviewed Results Reviewed: 2023 PARANASAL SINUSES: There is opacification of a single posterior right ethmoid air cell. The left ethmoid sinuses and bilateral frontal, maxillary, and sphenoid sinuses are well-aerated and clear. No mucosal thickening or air/fluid levels are identified. The ostiomeatal complexes are patent bilaterally. The mastoid air cells and middle ear cavities are well pneumatized bilaterally. BONES/JOINTS: There is minimal nasal septal deviation to the left. No acute fractures are identified. INCLUDED ORBITS AND INTRACRANIUM : Unremarkable. The olfactory grooves appear within normal limits bilaterally. 04/[address] with 09/2023 CT/CT sinus wo IV con IMPRESSION: Opacification of a single posterior right ethmoid air cell. Otherwise unremarkable unenhanced CT of the paranasal sinuses. The CPAP compliance and therapy response (02/26/24-05/24/24) reviewed. The usage days 100% and the average usage hours 8 hrs and 22min. The median pressure was 9.6 and the residual AHI was 3.4 APAP therapy set at [id number] and EPR is 2 Assessment & Plan Assessment & Plan (1) Fatigue: Code(s): R53.83 - Other fatigue Category: Medical Qualifiers: Fatigue type: other Qualified Code(s): R53.83 - Other fatigue (2) [place] on CPAP: Comment: Mild degree of sleep apnea. The AHI was 6/hr and oxygen joel was 88% Code(s): G47.33 - Obstructive sleep apnea (adult) (pediatric) Category: Medical (3) Chronic sinusitis: Code(s): J32.9 - Chronic sinusitis, unspecified Category: Medical Qualifiers: Sinusitis location: sphenoidal Qualified Code(s): J32.3 - Chronic sphenoidal sinusitis (4) Dizziness: Code(s): R42 - Dizziness and giddiness Category: Medical Plan [place] Sleep Compliance Reviewed with patient. TSH is elevated 4.96 Graves Disease TSH receptor antibodies elevated 16.9. / HDL is low / BUN is high. Protein is 8.3. Reviewed Labs with patient today. Chronic Sinusitis Reviewed CTscan from 05/21/2024 with Patient, normal scan. Patient Instructions: Sleep Hygiene provided: set a scheduled bedtime and wake time to help regulate the circadian rhythm and balance the release of pituitary hormones. Sleep in a dark room, temperatures below 68 degrees, and no devices n bed. Limit caffeinated products 6 hours prior to bed, and limit fluids 2-4 hours prior to bed. Gentle night yoga, diffusing essential oils, and playing soft music can be relaxing. Reviewed Labs with patient: TSH is elevated 4.96 she has Graves Disease, and TSH Receptor antibodies. HDL is 38L, BUN is 26. Protein is 8.3. Reviewed CT scan normal sinus scan. Reviewed compliance, she needs [facility], mask, filters and liners, hoses, she will contact them today for delivery. Dizziness she delines PT today. Coding Level of Care Code Est Pt Level 4 (82029) Diagnoses Other fatigue R53.83 Fatigue type: other [place] on CPAP G47.33 Chronic sphenoidal sinusitis J32.3 Sinusitis location: sphenoidal Dizziness R42 Time Spent (min) 30
[2024-05-28 10:17] VITALS: BP 120/70; PULSE 92; O2SAT 98; BMI 26.4
--- OUTSIDE RECORDS SUMMARY | 2024-05-28 11:37 | XMS_ITS | Encounter Summary ---
Author Organization [employer] Address [address] [place] [address] 7 [place] [address] Care Team Providers Care Association Executive Name Role Phone Yeni Willoughby MD Primary Care Provider [phone] Quoc Bermudez PharmD Unavailable [phone] Reason for Referral * Consultation (Routine) - Authorized Specialty Diagnoses / Procedures Referred By Contjuan diego t Referred To Contact Pharmacy Diagnoses Primary hypertension Type 2 diabetes mellitus without complication, without long-term current use of insulin (CMS/HCC) Asthma-COPD overlap syndrome (CMS/HCC) Tobacco use Yeni Willoughby MD [address] [place] [address] Phone: tel: fax: Referral ID Status Reason Start Date Expiration Date Visits Requested Visits Authorized [id number] Authorized Consult and Treat 03/01/2024 03/01/2025 6 6 Encounter Details Date Type Department Care Team (Late st Contact Info) Description 03/01/2024 Orders Only [facility] MEDICINE [address] [place] [address] Yeni Willoughby MD [address] [place], [place] [phone] Primary hypertension (Primary Dx); Type 2 diabetes [...] Care Team (Late st Contact Info) Description 08/20/2024 1:00 PM EDT Office Visit [facility] ADULT DENTAL [address] [place] [address] Crystal Melendrez [address] [place] [address] 09/27/2024 11:00 AM EDT Medication Management [facility] MED[facility]INE [address] [place] [address] Quoc Bermudez PharmD [address] [place] [address] Scheduled Referrals Name Type Priority Associated Diagnoses Orde r Schedule Referral to Pharmacy CD Outpatient Referral Routine Primary hypertension Type 2 diabetes mellitus without complication, without long-term current use of insulin (CMS/HCC) Asthma-COPD overlap syndrome (CMS/HCC) Tobacco use Ordered: 03/01/2024 documented as of this encounter Goals Goal Patient Goal Type Associated Problems Recent Progress Patient-Stated? Author Blood Pressure < 140/90 Blood Pressure 129/100(04/23 11:26 AM EST) No Quoc Bermudez PharmD Hemoglobin A1c < 7 Result Component 6(04/23/2024 11:27 AM EST) No Quoc Bermudez PharmD documented as of this encounter Visit Diagnoses Diagnosis Primary hypertension- Primary Unspecified essential hypertension Type 2 diabetes mellitus without complication, without long-term current use of insulin (CMS/HCC) Asthma-COPD overlap syndrome ([facility]) Tobacco use documented in this encounter Additional Health Concerns Assessment Noted Time PHQ-9 Depression Total Score: 0 05/25/19 24 9:46 AM EDT documented as of this encounter Care Teams Association Executive Relationship Specialty Start Date End Date Yeni Willoughby MD [address] [place] [address] PCP - General Family Medicine 02/27/18 Quoc Bermudez, Shannen [address] [place] [address] Pharmacist Internal Medicine 02/14/22 [facility] 11/02/23 documented as of this encounter
--- OUTSIDE RECORDS SUMMARY | 2024-05-28 11:38 | XMS_ITS | Encounter Summary ---
Author Organization [employer] Address [address] [facility] 7t [place] [address] Care Team Providers Care Cylinder Block Mechanic Name Role Phone Yeni Willoughby MD Primary Care Provider Quoc Bermudez PharmD Unavailable [phone] Encounter Details Date Type Department Care Team ([facility] Contact Info) Description 05/26/2023 Orders Only [facility] [address] [place], [place] [phone] Yeni Willoughby MD [address] [place], [place] [phone] Postablative hypothyroidism (Primary Dx); Hypomagnesemia Social History [...] Description 08/20/2024 1:00 PM EDT Office Visit [facility] ADULT DENTAL [address] [place] [address] Parvin, Crystal [address] [place] [address] 09/27/2024 11:00 AM EDT Medication Management [facility] [address] [place] [address] Quoc Bermudez PharmD [address] [place] [address] Scheduled Orders Name Type Priority Associated Diagnoses Orde r Schedule Magnesium, urine, 24 hour Lab Routine Hypomagnesemia Expected: 05/26/2023 (Approximate), Expires: 05/25/2024 Creatinine, 24-Hour Urine Lab Routine Hypomagnesemia Expected: 05/26/2023 (Approximate), Expires: 05/25/2024 documented as of this encounter Goals Goal Patient Goal Type Associated Problems Recent Progress Patient-Stated? Author Blood Pressure < 140/90 Blood Pressure 129/100(04/23 11:26 AM EST) No Quoc Bermudez, PharmErin Hemoglobin A1c < 7 Result Component 6(04/23/2024 [...] Stimulating Hormone 0.05(L) 0.32 - 4.0 uIU/mL [facility] Comment:TSH 3rd Generation ( [facility]) Blood Venous blood specimen / Unknown 06/21/2023 11:29 AM EDT 06/21/2023 1:52 PM EDT us Yeni Willoughby MD LAB BLOOD ORDERABLES Final Resul t Performing Organization Address [facility] de Phone Number [facility] [address] [place] [phone] * T4, Free (06/21/2023 11:29 AM EDT) Free T4 (Free Thyroxine) 1.31 0.71 - 1.85 ng/dL [facility] Blood Venous blood specimen / Unknown 06/21/2023 11:29 AM EDT 06/21/2023 1:52 PM EDT us Yeni Willoughby MD LAB BLOOD ORDERABLES Final Resul t Performing Organization Address [facility] Co de Phone Number [facility] [address] [place] [phone] documented in this encounter Visit Diagnoses Diagnosis Postablative hypothyroidism- Primary Other postablative hypothyroidism Hypomagnesemia Disorders of magnesium metabolism documented in this encounter Additional Health Concerns Assessment Noted Time PHQ-9 Depression Total Score: 0 05/25/19 24 9:46 AM EDT documented as of this encounter Care Teams Cylinder Block Mechanic Relationship Specialty Start Date End Date Yeni Willoughby MD [address] [place] [address] [place] [address] PCP - General Family Medicine 02/27/18 Quoc Bermudez, Shannen [address] [place] [address] Pharmacist Internal Medicine 02/14/22 [facility] 11/02/23 documented as of this encounter
--- OUTSIDE RECORDS SUMMARY | 2024-05-28 11:38 | XMS_ITS | Encounter Summary ---
Author Organization [email or web address] Address [address] [facility] 7t [place] [address] Care Team Providers Care Manager Forensic Name Role Phone Yeni Willoughby MD Primary Care Provider [phone] Quoc Bermudez PharmD Unavailable [phone] Encounter Details Date Type Department Care Team ([facility] Contact Info) Description 02/07/2024 Orders Only [facility] [address] [place], [place] [phone] Yeni Willoughby MD [address] [place] [address] Hyperkalemia (Primary Dx); Stage 3a chronic kidney [...] Description 08/20/2024 1:00 PM EDT Office Visit [facility] ADULT DENTAL [address] [place] [address] Parvin, Crystal [address] [place] [address] 09/27/2024 11:00 AM EDT Medication Management [facility] [address] [place] [address] Quoc Bermudez, PharmD [address] [place] [address] Scheduled Orders Name Type Priority Associated Diagnoses [...] Component 6(04/23/2024 11:27 AM EST) No Quoc Bermudez, PharmD documented as of this encounter Visit Diagnoses Diagnosis Hyperkalemia- Primary Hyperpotassemia Stage 3a chronic kidney disease (CMS/HCC) documented in this encounter Additional Health Concerns Assessment Noted Time PHQ-9 Depression Total Score: 0 05/25/19 9:46 AM EDT documented as of this encounter Care Teams Manager Forensic Relationship Specialty Start Date End Date Yeni Willoughby MD [address] [place] [address] PCP - General Family Medicine 02/27/18 Quoc Bermudez, PharmD [address] [place] [address] Pharmacist Internal Medicine 02/14/22 [facility] 11/02/23 documented as of this encounter
--- OUTSIDE RECORDS SUMMARY | 2024-05-28 11:38 | XMS_ITS | Encounter Summary ---
Author Organization [employer] [facility] Address [address] [place] [address] 7 [place] [address] Care Team Providers Care Lamp Inspector Name Role Phone Yeni Willoughby MD Primary Care Provider [phone] Quoc Bermudez PharmD Unavailable [phone] Encounter Details Date Type Department Care Team (Latest Contact Info) Description 06/26/2018 Abstract [facility] CONVERSIONS Dental, Provider, DDS Social History Tobacco [...] Care Team ( st Contact Info) Description 08/20/2024 1:00 PM EDT Office Visit [facility] ADULT DENTAL [address] [place] [address] Crystal Melendrez [address] [place] [address] 09/27/2024 11:00 AM EDT Medication Management [facility] MED[facility] [address] [place] [address] Quoc Bermudez, PharmD [address] [place] [address] documented as of this encounter Visit Diagnoses Not on filedocumented in this encounter Care Teams Lamp Inspector Relationship Specialty Start Date End Date Yeni Willoughby MD [address] [place] [address] PCP - General Family Medicine 02/27/18 Quoc Bermudez, RazD [address] [place] [address] Pharmacist Internal Medicine 02/14/22 [facility] 11/02/23 documented as of this encounter
--- OUTSIDE RECORDS SUMMARY | 2024-05-28 11:38 | XMS_ITS | Encounter Summary ---
Author Organization [employer] Address [address] [facility] 7t [place] [address] Care Team Providers Care Manager Customer Name Role Phone Yeni Willoughby MD Primary Care Provider [phone] Quoc Bermudez PharmD Unavailable [phone] Reason for Visit * Reason Comments Med Refill Encounter Details Date Type Department Care Team ([facility] Contact Info) Description 12/18/2022 Refill [facility] MED[facility]INE [address] [place] [address] Heidy Garza, ANP [address] [place] [address] Social History Tobacco Use Types Packs/Day Years [...] 1:00 PM EDT Office Visit [facility] ADULT DENTAL [address] [place] [address] Parvin, Crystal [address] [place] [address] 09/27/2024 11:00 AM EDT Medication Management [facility] MED[facility] [address] [place] [address] Quoc Bermudez, PharmD [address] [place] [address] documented as of this encounter Goals Goal Patient Goal Type Associated Problems Recent Progress Patient-Stated? Author Blood Pressure < 140/90 Blood Pressure 129/100(2024 11:26 AM EST) No Quoc Bermudez, PharmD documented as of this encounter Visit Diagnoses Not on filedocumented in this encounter Additional Health Concerns Assessment Noted Time PHQ-9 Depression Total Score: 3 06/02/19 23 11:01 AM EDT documented as of this encounter Care Teams Manager Customer Relationship Specialty Start Date End Date Yeni Willoughby MD [address] [place] [address] PCP - General Family Medicine 02/27/18 Quoc Bermudez, PharmD [address] [place] [address] Pharmacist Internal Medicine 02/14/22 [facility] 11/02/23 documented as of this encounter
--- OUTSIDE RECORDS SUMMARY | 2024-05-28 11:38 | XMS_ITS | Encounter Summary ---
Author Organization [facility] Address [address] [place] [address] 7 [place] [address] Care Team Providers Care Healthcare Manager Name Role Phone Yeni Willoughby MD Primary Care Provider [phone] Quoc Bermudez PharmD Unavailable [phone] Encounter Details Date Type Department Care Team (Latest Contact Info) Description 08/27/2020 Abstract [facility] CONVERSIONS Dental, Provider, DDS Social History [...] Description 08/20/2024 1:00 PM EDT Office Visit [facility] ADULT DENTAL [address] [place] [address] Crystal Melendrez [address] [place] [address] 09/27/2024 11:00 AM EDT Medication Management [facility] [address] [place] [address] Quoc Bermudez, PharmD [address] [place] [address] documented as of this encounter Visit Diagnoses Not on filedocumented in this encounter Care Teams Healthcare Manager Relationship Specialty Start Date End Date Yeni Willoughby MD [address] [place] [address] PCP - General Family Medicine 02/27/18 Quoc Bermudez, RazD [address] [place] [address] Pharmacist Internal Medicine 02/14/22 [facility] 11/02/23 documented as of this encounter
--- OUTSIDE RECORDS SUMMARY | 2024-05-28 11:38 | XMS_ITS | Encounter Summary ---
Author Organization [employer] Address [address] [facility] 7t [place] [address] Care Team Providers Care Last Picker Name Role Phone Yeni Willoughby MD Primary Care Provider [phone] Quoc Bermudez PharmD Unavailable [phone] Encounter Details Date Type Department Care Team ([facility] Contact Info) Description 11/22/2023 Orders Only [facility] [address] [place], [place] [phone] Yeni Willoughby MD [address] [place], [place] [phone] Hypomagnesemia (Primary Dx); Hypocalcemia Social History Tobacco [...] 1:00 PM EDT Office Visit [facility] ADULT DENTAL [address] [place] [address] Parvin, Crystal [address] [place] [address] 09/27/2024 11:00 AM EDT Medication Management [facility] [address] [place] [address] Quoc Bermudez PharmD [address] [place] [address] Scheduled Orders Name Type Priority Associated Diagnoses [...] EST) Magnesium 2.2 1.6 - 2.6 mg/dL [facility] Blood Venous blood specimen / Unknown 02/06/2024 12:07 PM EST 02/06/2024 1:03 PM EST us Yeni Willoughby MD LAB BLOOD ORDERABLES Final Resul t Performing Organization Address City/[facility]/ZIP Co de Phone Number [facility] [address] [place] [address] [phone] * (ABNORMAL) TSH (01/12/2024 11:55 AM EST) Thyroid Stimulating Hormone 0.05(L) 0.32 - 4.0 uIU/mL [facility] Comment:TSH 3rd Generation ( [facility]) Blood Venous blood specimen / Unknown 01/12/2024 11:55 AM EST 01/12/2024 12:57 PM EST us Yeni Willoughby MD LAB BLOOD ORDERABLES Final Resul t Performing Organization Address City/[facility]/ZIP Co de Phone Number [facility] [address] [place] [address] [phone] * T4, Free (01/12/2024 11:55 AM EST) Pathologist [facility] Free T4 (Free Thyroxine) 1.32 0.71 - 1.85 ng/dL [facility] Blood Venous blood specimen / Unknown 01/12/2024 11:55 AM EST 01/12/2024 12:57 PM EST us Yeni Willoughby MD LAB BLOOD ORDERABLES Final Resul t Performing Organization Address [facility] Co de Phone Number [facility] [address] [place] [phone] * (ABNORMAL) Magnesium (01/12/2024 11:55 AM EST) [facility] Magnesium 1.3(LL) 1.6 - 2.6 mg/dL [facility] Comment:Critical value for M AG: Results called to and read back by:Naty Rodriguez Person calling: JIMMY Date: 01/12/24 Time: 1414 Blood Venous blood specimen / Unknown 01/12/2024 11:55 AM EST 01/12/2024 12:57 PM EST us Yeni Willoughby MD LAB BLOOD ORDERABLES Final Resul t Performing Organization Address [facility] de Phone Number [facility] [address] [place] [phone] * (ABNORMAL) Basic Metabolic Panel (01/12/2024 11:55 AM EST) [facility] Sodium 141 135 - 145 mmol/L [facility] Potassium 4.1 3.3 - 5.1 mmol/L [facility] Chloride 106 96 - 108 mmol/L [facility] Carbon Dioxide 29 22 - 29 mmol/L [facility] Anion Gap 10(L) 12 - 20 [facility] Urea Nitrogen (BUN) 20(H) 9 - 16 mg/dL [facility] Creatinine, Serum 0.99 0.5 - 1.4 mg/dL [facility] Estimated Glomerular Filt Rate 57 [facility] Comment:Chronic Kidney Disea se: Estimated GFR < 60 mL/min/[id number] Kidney Disease: Estimated GFR < 15 mL/min/1.73m2 Glucose 97 60 - 115 mg/dL [facility] Calcium 9.3 8.4 - 10.2 mg/dL [facility] Blood Venous blood specimen / Unknown 01/12/2024 11:55 AM EST 01/12/2024 12:57 PM EST us Yeni Willoughby MD LAB BLOOD ORDERABLES Final Resul t [facility] [address] [place] [phone] documented in this encounter Visit Diagnoses Diagnosis Hypomagnesemia- Primary Disorders of magnesium metabolism Hypocalcemia documented in this encounter Additional Health Concerns Assessment Noted Time PHQ-9 Depression Total Score: 0 05/25/19 24 9:46 AM EDT documented as of this encounter Care Teams Last Picker Relationship Specialty Start Date End Date Yeni Willoughby MD [address] [place] [address] PCP - General Family Medicine 02/27/18 Quoc Bermudez, RazD [address] [place] [address] Pharmacist Internal Medicine [facility] documented as of this encounter
--- OUTSIDE RECORDS SUMMARY | 2024-05-28 11:38 | XMS_ITS | Encounter Summary ---
Author Organization [employer] Address [address] [place] [address] 7 [place] [address] Care Team Providers Care Management Manager Name Role Phone Yeni Willoughby MD Primary Care Provider [phone] Quoc Bermudez PharmD Unavailable [phone] Encounter Details Date Type Department Care Team (Late st Contact Info) Description 04/08/2022 Orders Only [facility] MEDICINE [address] [place] [address] Yeni Willoughby MD [address] [place] [address] Controlled type 2 diabetes mellitus with hyperglycemia, without long-term current use of insulin ([facility]) (Primary Dx); History of Graves' [...] Description 08/20/2024 1:00 PM EDT Office Visit [facility] ADULT DENTAL [address] [place] [address] Crystal Melendrez [address] [place] [address] 09/27/2024 11:00 AM EDT Medication Management [facility] MED[facility] [address] [place] [address] Quoc Bermudez, PharmD [address] [place] [address] documented as of this encounter Visit Diagnoses Diagnosis Controlled type 2 diabetes mellitus with hyperglycemia, without long-term current use of insulin ([facility])- Primary History of Graves' disease documented in this encounter Care Teams Management Manager Relationship Specialty Start Date End Date Yeni Willoughby MD [address] [place] [address] [phone] PCP - General Family Medicine 02/27/18 Quoc Bermudez, PharmD [address] [place] [address] [phone] Pharmacist Internal Medicine 02/14/22 [facility] 11/02/23 documented as of this encounter
--- OUTSIDE RECORDS SUMMARY | 2024-05-28 11:38 | XMS_ITS | Encounter Summary ---
Author Organization [employer] Address [address] [facility] 7t [place] [address] Care Team Providers Care Periodontal Assistant Name Role Phone Yeni Willoughby MD Primary Care Provider [phone] Quoc Bermudez PharmD Unavailable [phone] Encounter Details Date Type Department Care Team ([facility] Contact Info) Description 02/07/2024 Orders Only [facility] MEDICINE [address] [place], [place] [phone] Yeni Willoughby MD [address] [place], [place] [phone] Social History Tobacco Use Types Packs/Day Years [...] Description 08/20/2024 1:00 PM EDT Office Visit [facility] ADULT DENTAL [address] [place] [address] Parvin, Crystal [address] [place] [address] 09/27/2024 11:00 AM EDT Medication Management [facility] [address] [place] [address] Quoc Bermudez PharmD [address] [place] [address] documented as of this encounter Goals Goal Patient Goal Type Associated Problems Recent Progress Patient-Stated? Author Blood Pressure < 140/90 Blood Pressure 129/100(04/23 11:26 AM EST) No Quoc Bermudez PharmErin Hemoglobin A1c < 7 Result Component 6(04/23/2024 11:27 AM EST) No Quoc Bermudez PharmD documented as of this encounter Visit Diagnoses Not on filedocumented in this encounter Additional Health Concerns Assessment Noted Time PHQ-9 Depression Total Score: 0 05/25/19 9:46 AM EDT documented as of this encounter Care Teams Periodontal Assistant Relationship Specialty Start Date End Date Yeni Willoughby MD [address] [place] [address] PCP - General Family Medicine 02/27/18 Quoc Bermudez, PharmD [address] [place] [address] Pharmacist Internal Medicine 02/14/22 [facility] 11/02/23 documented as of this encounter
--- OUTSIDE RECORDS SUMMARY | 2024-05-28 11:38 | XMS_ITS | Clinical Summary ---
Author Organization [employer] Address [address] [place] [address] Care Team Providers Care Work Environment Safety Inspector Name Role Phone Yeni Willoughby MD Primary Care Provider [phone] Quoc Bermudez PharmD Unavailable [phone] Allergies Active Allergy Reactions Criticality Noted Date Comments Codeine 05/25/2018 Other reaction(s): Rash, Rash Fluoxetine 03/08/2010 Other reaction(s): unspecified Ibuprofen 03/08/2010 Other reaction(s): unspecified Meclizine Rash Low 04/09/2024 Sulfamethoxazole 03/08/2010 Other reaction(s): unspecified Trimethoprim 03/08/2010 Other reaction(s): unspecified Medications albuterol 108 (90 Base) MCG/ACT inhaler inhale 2 puff by inhalation route every 4 - 6 hours as needed as needed Active Alcohol Swabs (SM Alcohol Prep) 70 % pads USE DIRECTED FOUR TIMES DAILY Active Blood Pressure Monitoring (Omron 3 Series BP Monitor) device USE TO CHECK BLOOD PRESSURE ONCE DAILY 022 Active TRUEplus Lancets 33G misc TEST BLOOD SUGAR FOUR TIMES DAILY 022 Active polyvinyl alcohol (Liquifilm Tears) 1.4 % ophthalmic solution APPLY IN EACH EYE NEEDED DIRECTED 022 Active fluticasone (Flonase) 50 MCG/ACT nasal spray spray 1 spray by intranasal route every day in each nostril 16 g 023 Active Probiotic Product (Advanced Probiotic-14) capsule Take 1 capsule by mouth every morning 024 Active naloxone (Narcan) 4 mg/0.1 mL nasal spray Administer 1 spray (4 mg) into affected nostril(s) if needed for opioid reversal. May repeat every 2-3 minutes if needed, alternating nostrils, until medical assistance becomes available. 2 each 024 2024 Active D3-1000 25 MCG (1000 UT) capsule TAKE 2 CAPSULES BY MOUTH ONCE DAILY IN THE MORNING 60 capsule 11 Active FREESTYLE LITE test stripIndications :Type 2 diabetes mellitus without complication, without long-term current use of insulin ([facility]) TEST BLOOD SUGAR THREE TIMES DAILY 100 each Active atorvastatin (Lipitor) 10 MG tablet Take 2 tablets (20 mg) by mouth Once per day. 60 tablet 11 024 2024 Active calcium 500 MG tablet Take 1 tablet (500 mg) by mouth Once per day. 90 tablet 3 Active loratadine (Claritin) 10 MG tablet Take 1 tablet (10 mg) by mouth Once per day. 30 tablet Active acetaminophen (Tylenol 8 Hour) 650 MG ER tabletIndication s:Chronic low back pain, unspecified back pain laterality, unspecified whether sciatica present Take 1 tablet by mouth every 8 hours as needed 60 tablet 3 Active olmesartan (Benicar) 20 MG tablet Take 1 tablet (20 mg) by mouth Once per day. 90 tablet 3 024 2024 Active aspirin (Aspirin Low Dose) 81 MG EC tabletIndication s:At high risk for cardiovascular disease TAKE 1 TABLET BY MOUTH EVERY MORNING 30 tablet 11 Active magnesium oxide (Mag-Ox) 400 MG tablet TAKE 1 TABLET BY MOUTH TWICE DAILY IN THE MORNING AND AT BEDTIME 60 tablet 3 Active metFORMIN XR (Glucophage-XR) 500 MG 24 hr tabletIndication s:Controlled type 2 diabetes mellitus with hyperglycemia, without long-term current use of insulin ([facility]) TAKE 2 TABLETS BY MOUTH TWICE DAILY IN THE MORNING AND EVENING 360 tablet Active montelukast (Singulair) 10 MG tablet TAKE 1 TABLET BY MOUTH EVERY EVENING 90 tablet Active amLODIPine (Norvasc) 5 MG tablet TAKE 1 TABLET BY MOUTH EVERY MORNING 30 tablet 3 Active levothyroxine (Synthroid, Levoxyl) 75 MCG tablet Take 75 mcg by mouth in the morning. Active Reguloid 400 MG capsule TAKE 1 CAPSULE BY MOUTH TWICE DAILY IN THE MORNING AND IN THE EVENING Active Trulicity 0.75 MG/0.5ML solution auto-injectorInd ications:Control led type 2 diabetes mellitus without complication, without long-term current use of insulin ([facility]) INJECT ONE PEN (=0.75MG) SUBCUTANEOUSLY ONCE A WEEK DIRECTED 2 mL 3 Active omeprazole (PriLOSEC) [address] capsuleIndicatio ns:Gastroesophag eal reflux disease, unspecified whether esophagitis present TAKE 1 CAPSULE BY MOUTH AT BEDTIME 30 capsule 2 Active famotidine (Pepcid) 20 MG tablet Take 1 tablet (20 mg) by mouth if needed in the morning and at bedtime for heartburn. 60 tablet 1 025 2024 Active cloNIDine (Catapres) 0.2 MG tablet TAKE 1 TABLET BY MOUTH AT BEDTIME 90 tablet 3 025 Active cloNIDine (Catapres) 0.2 MG tablet TAKE 1 TABLET BY MOUTH AT BEDTIME 90 tablet 3 024 2024 Discontinued famotidine (Pepcid) 20 MG tablet Take 1 tablet (20 mg) by mouth if needed in the morning and at bedtime for heartburn. 60 tablet 1 024 2024 Discontinued(R eorder (will not trigger notification to Pharmacy)) omeprazole (PriLOSEC) [address] capsuleIndicatio ns:Gastroesophag eal reflux disease, unspecified whether esophagitis present Once daily at bedtime. Do not crush or chew. 30 capsule 2 024 2024 Discontinued doxycycline (Vibra-Tabs) 100 MG tablet Take 1 tablet (100 mg) by mouth 2 times daily for 10 days. Take with a full glass of water and do not lie down for at least 30 minutes after. 20 tablet 025 2024 mupirocin (Bactroban) 2 % ointment Apply topically 3 times daily for 10 days. 22 g 025 2024 Active Problems Problem Noted Date Diagnosed Date Dental calculus 07/06/2023 Periodontal disease 07/06/2023 Localized gingival recession 07/06/2023 Pancreatic insufficiency 05/26/2023 Assessment & Plan (02/14/2024 6:23 AM EST): - following with [facility] - provisional Dx US in Mar 2023 showed coarse heterogenous echotexture - prescribed pancreatic enzyme by GI in the past, not taking currently Assessment & Plan (05/26/2023 12:19 PM EDT): - following with [facility] - provisional Dx US in Mar 2023 showed coarse heterogenous echotexture - trying pancreatic enzyme currently Pulmonary nodules 05/26/2023 Assessment & Plan (11/22/2023 10:08 AM EDT): - followed by [facility] lung cancer screening progam - CT in [...] (05/26/2023 12:23 PM EDT): - followed by [facility] lung cancer screening progam - last CT in August 2022, Lung RADS 2, Multiple 1 mm calcified small granulomas in both lungs. 4 mm pulmonary nodules are stable. No new nodules seen. - continue annual CT scan - continue working on smoking cessation Metabolic dysfunction-associ ated steatotic liver disease (MASLD) 08/28/2022 Assessment & Plan (04/23/2024 11:18 AM EST): - following with [facility] - hx reactive Hep C antibody, negative in 2020 and 2021 - most recent US on 05/08/23 mildly increased echogenicity of liver. - fibrosis stage F0 - FIB4 index 0.96 - continue working on lifestyle modifications Assessment & Plan (02/13/2024 9:27 AM EST): - following with [facility] - hx reactive Hep C antibody, negative in 2020 and 2021 - most recent US on 05/08/23 mildly increased echogenicity of liver. - fibrosis stage F0 - FIB4 index 0.96 - continue working on lifestyle modifications Assessment & Plan (11/22/2023 9:31 AM EDT): - following with [facility] - hx reactive Hep C antibody, negative in 2020 and 2021 - most recent US on 05/08/23 mildly increased echogenicity of liver. - fibrosis stage F0 - FIB4 index 0.96 - continue working on lifestyle modifications Assessment & Plan (08/16/2023 12:34 PM EDT): - following with [facility] - hx reactive Hep C antibody, negative in 2020 and 2021 - most recent US on 05/08/23 mildly increased echogenicity of liver. - fibrosis stage F0 - FIB4 index 0.96 - continue working on lifestyle modifications Assessment & Plan (05/26/2023 11:47 AM EDT): - following with [facility] - hx reactive Hep C antibody, [...] Asthma-COPD overlap syndrome 06/01/2022 Assessment & Plan (04/30/2024 11:46 AM EST): - PFT in 2008 showed moderate-severe obstructive [...] Test in near future Assessment & Plan (11/22/2023 9:31 AM EDT): - PFT in 2009 showed moderate-severe obstructive airway disease with complete [...] Test Tobacco use 06/01/2022 Assessment & Plan (04/30/2024 11:40 AM EST): -Smoking Hx > 30 pack years -last lung cancer screening CT on 10/17/23 Lung RADS 1 -Discussed about the importance of smoking cessation today. -previously tried nicotine replacement which was ineffective -tried Chantix -continue assessing her stage of change Assessment & Plan (02/13/2024 9:31 AM EST): [...] eye protection - check an availability of tree worker or plastic surgeon who can evaluate and [...] screen - will check with her [facility] care physician Chronic sinusitis 06/26/2013 Assessment & Plan (04/30/2024 11:42 AM EST): - discourage cocaine use - referred to ENT - acute on chronic currently - evaluate with CT scan - Rx doxycycline Assessment & Plan (11/22/2023 10:00 AM EDT): - discourage cocaine use - consider referral to ENT Type 2 diabetes mellitus 06/26/2013 Assessment & Plan (04/23/2024 11:52 AM EST): - A1c 6.0% on 04/23/24 - A1C 6.2% on 11/22/23 - A1C [...] retinopathy. Hx Graves ophthalmopathy. PVD. Seen by [facility] on 01/03/24 - Last comprehensive foot exam: 04/23/24 - Last microalbumin test : 05/26/23 UACR 10 - Last FLP: 05/25/23 TC 121; TG 167; HDL 37; LDL 51 - Last dental exam: ? Assessment & Plan (02/14/2024 6:26 AM EST): [...] retinopathy. Hx Graves ophthalmopathy. PVD. Seen by [facility] on 01/03/24 - Last comprehensive foot [...] Completed Postablative hypothyroidism 07/04/2012 Assessment & Plan (04/23/2024 8:58 AM EST): - History of Graves' disease - Radioactive iodine ablation in 2009 - Started seeing a new autoclave operator, Dr. Mccracken, initial visit on 02/08/24. - Current replacement: Levothyroxine 100 mcg daily. - last TSH - Dr. Mccracken recommends that patient completes 6 weeks of levothyroxine 100 mcg, then recheck thyroid function test before adjusting its dose. Patient was referred to Dr. Herbert for Graves' eye disease. - Assessment & Plan (02/13/2024 5:12 AM EST): - History of Graves' disease - Radioactive iodine ablation in 2009 - Started seeing a new autoclave operator, Dr. Mccracken, initial visit on 02/08/24. - [...] - Pt was referred to a new autoclave operator and was seen on 02/21/19. - Because she is euthyroid, she was discharged Assessment & Plan (11/22/2023 9:58 AM EDT): - History of Graves' disease - Radioactive iodine ablation in 2009 - Medications: Levothyroxine 125 mcg daily. - last TSH 0.06 on 09/22/23 - Check lab and adjust medication accordingly - Previously seeing autoclave operator at [facility], then [facility], and was discharged due to her stability and no concern for thyroid cancer. - Of note, patient is on GLP-1 RA Assessment & Plan (08/16/2023 12:39 PM EDT): - History of Graves' disease - Radioactive iodine ablation in 2009 - Medications: Levothyroxine 125 mcg daily. - last TSH 0.05 on 06/21/23 - Check lab and adjust medication accordingly - Previously seeing autoclave operator at [facility], then [facility], and was discharged due to her stability and no concern for thyroid cancer. - Of note, patient is on GLP-1 RA Assessment & Plan (02/13/2024 5:09 AM EST): >>ASSESSMENT AND PLAN FOR POSTABLATIVE HYPOTHYROIDISM WRITTEN ON 05/26/2023 12:07 PM BY YENI WILLOUGHBY MD - History of Graves' disease - Radioactive iodine ablation in 2009 - Medications: Levothyroxine 137 mcg daily. - last TSH 0.43 on 06/01/22 - Continue current replacement - Previously seeing autoclave operator at [facility], then [facility], and was discharged due to her stability and no concern for thyroid cancer. >>ASSESSMENT AND PLAN FOR HYPOTHYROIDISM WRITTEN ON 05/25/2023 5:52 AM BY YENI WILLOUGHBY MD - History of Graves' disease - Radioactive iodine ablation in 2009 - Medications: Levothyroxine 137 mcg daily. - last TSH 0.43 on 06/01/22 - Continue current replacement - Pt was referred to a new autoclave operator and was seen on 02/21/19. - Because she is euthyroid, she was discharged Assessment & Plan (08/28/2022 11:01 AM EDT): - Medications: Levothyroxine 137 mcg daily. - last TSH 0.43 on 06/01/22 - Continue current replacement - Pt was referred to a new autoclave operator and was seen on 02/21/19. - Because she is euthyroid, she was discharged. Assessment & Plan (06/13/2022 12:48 PM EDT): - Medications: Levothyroxine 137 mcg daily. - last TSH 3.11 on 07/16/20 - Continue current replacement - Pt was referred to a new autoclave operator and was seen on 02/21/19. - Because she is euthyroid, she was discharged. Allergic rhinitis 12/01/2011 Assessment & Plan (04/30/2024 11:41 AM EST): Continue loratadine and flonase Dyslipidemia 12/01/2011 Assessment & Plan (04/24/2024 12:45 AM EST): Current medication: switched to atorvastatin on 11/22/23. This may be an offending agent. Will consider holding the medication. Previous medication: pravastatin 80 mg qhs Lab: 05/25/23 TC 121; TG 167; HDL 37; LDL 51 Continue working on lifestyle modificaiton Consider higher potency statin due to mild CAD, although her LDL is at goal - Ordered Lipid Panel with Reflex to Direct LDL 04/23/24 Assessment & Plan (02/13/2024 9:30 AM EST): [...] lifestyle modificaiton Hypertension 12/01/2011 Assessment & Plan (04/23/2024 11:55 AM EST): - Goal BP < 140/90 per JNC-8, < 130/80 per ACC/AHA. - Home BP well controlled, between 110-120 over 70-80. Heart rate: 80-90 - Currently prescribed medications: amlodipine 5 mg [...] today and adjust accordingly) Assessment & Plan (02/14/2024 6:21 AM EST): [...] sleep apnea syndrome 10/05/2011 Assessment & Plan (04/30/2024 11:46 AM EST): - following with sleep medicine clinic at [facility], last seen in May 2023 - home sleep study on 12/15/22, auto PAP 5-20 cm H2O was recommended - recent compliance report shows 100% adherence - continue AutoPAP Assessment & Plan (11/22/2023 9:31 AM EDT): - following with sleep medicine clinic at [facility], last seen in May 2023 - home sleep study on 12/15/22, auto PAP 5-20 cm H2O was recommended - recent compliance report shows 100% adherence - continue AutoPAP Assessment & Plan (08/16/2023 12:31 PM EDT): - following with sleep medicine clinic at [facility], last seen in May 2023 - home sleep study on 12/15/22, auto PAP 5-20 cm H2O was recommended - recent compliance report shows 100% adherence - continue AutoPAP Assessment & Plan (05/26/2023 11:42 AM EDT): - following with sleep medicine clinic at [facility] - home sleep study on 12/15/22, auto [...] Problem Noted Date Diagnosed Date Resolved Date Acute kidney injury 02/13/2024 05/01/19 25 Assessment & Plan (02/14/2024 6:24 AM EST): Recent labs on 02/06/24 showed Cr of 1.28, BUN 26 and K 5.5. - questionable medication adherence - dicussed repeating labs today (02/13/24) and if kidney function decreases more will refer to Nephrology. Asthma 02/11/2015 06/01/2022 Obesity 12/01/2011 06/13/2022 Encounters Date Type Department Care Team Description 05/20/2024 Orders Only GENERIC EXTERNAL DATA DEPARTMENT Provider, Generic External Data 05/19/2024 Refill [facility] [address] [place] [address] Yeni Willoughby MD 05/11/2024 Refill [facility] [address] [place], [place] [phone] Yuridia Kendall MD 05/11/2024 Refill [facility] [address] [place] [address] Heidy Garza ANP Gastroesophageal reflux disease, unspecified whether esophagitis present 04/23/2024 11:15 AM EST Office Visit [facility] [address] [place] [phone] Yeni Willoughby MD Type 2 diabetes mellitus without complication, without long-term current use of insulin (CMS/HCC) (Primary Dx); Primary hypertension; Asthma-COPD overlap syndrome (CMS/HCC); Obstructive sleep apnea syndrome; Postablative hypothyroidism; Dyslipidemia; Metabolic dysfunction-associated steatotic liver disease (MASLD); Dietary counseling; Exercise counseling; Overweight; Pruritic rash; Chronic sinusitis, unspecified location; Allergic rhinitis, unspecified seasonality, unspecified trigger; Tobacco use; Chest pain, unspecified type; Dyspnea, unspecified type 04/23/2024 Travel 04/17/2024 Telephone [facility] [address] [place] [phone] Yeni Willoughby MD Chart Prep 04/10/2024 Refill [facility] [address] [place], [place] [phone] Yeni Willoughby MD Controlled type 2 diabetes mellitus without complication, without long-term current use of insulin (CMS/HCC) 04/05/2024 Travel 03/27/2024 Telephone [facility] [address] [place] [phone] Quoc Bermudez, PharmD 03/20/2024 Refill [facility] [address] [place], [place] [phone] Yeni Willoughby MD 03/19/2024 Orders Only GENERIC EXTERNAL DATA DEPARTMENT Provider, Generic External Data 03/17/2024 Refill [facility] [address] [place] [phone] Yeni Willoughby MD Controlled type 2 diabetes mellitus with hyperglycemia, without long-term current use of insulin (CMS/HCC) 03/04/2024 Telephone [facility] [address] [place] [phone] Yeni Willoughby MD callback reqested 03/01/2024 Orders Only [facility] [address] [place] [address] Yeni Willoughby MD Primary hypertension (Primary Dx); Type 2 diabetes mellitus without complication, without long-term current use of insulin ([facility]/HCC); Asthma-COPD overlap syndrome ([facility]); Tobacco use from Last 3 Months Immunizations Name Administration [...] Sign Reading Time Taken Comments Blood Pressure 129/100 04/23/2024 11:26 AM EST Pulse 103 04/23/2024 11:26 AM EST Temperature 36.3 ??C (97.3 ??F) 04/23/2024 11:[address] Respiratory Rate 22 04/23/2024 11:26 AM EST Oxygen Saturation 98% 04/23/2024 11:26 AM EST Inhaled Oxygen Concentration - - Weight 69.2 kg (152 lb 9.6 oz) 04/23/2024 11:26 AM EST Height 162.6 cm (5' 4 ) 12/20/2023 11:49 AM EDT Body Mass Index 26.19 12/20/2023 11:49 AM EDT Plan of Treatment Upcoming Encounters Date Type Department Care Team (Late st Contact Info) Description 08/20/2024 1:00 PM EDT Office Visit [facility] [address] [place] [address] Maycol Melendrezaris [address] [place] [address] 09/27/2024 11:00 AM EDT Medication Management [facility] [address] [place] [address] Quoc Bermudez, PharmD [address] [place] [address] Health Maintenance Due Date Last Done Comments CT Colonography 1963 Colonoscopy 1963 Colorectal Cancer Screening 1963 FIT DNA/Cologuard 1963 FIT 1963 FOBT 1963 Sigmoidoscopy 1963 Dental X-Ray: Full Mouth 08/29/2023 08/27/2020 Dental Oral Exam 12/16/2023 06/15/2023, 10/2021, 08/27/2020, Additional history exists Depression Screening 05/24/2024 05/25/2023, 05/25/19 Dental X-Ray: Bitewings 06/15/2024 06/15/19, 08/27/2020, 06/26/2018, Additional history exists SDOH Screening 08/14/2024 08/15/2023 Dental Prophylaxis 08/20/2024 02/19/2024, 0 07/06/2023, 04/07/2021, Additional history exists Diabetes: Hemoglobin A1C 10/21/2024 025, 02/13/2024, 11/22/2023, Additional history exists Mammogram 11/22/2024 11/22/2022, 10/28, 09/22/2020, Additional history exists Eye Exam 01/09/2025 01/09/2023, 12/28, 01/09/2023, Additional history exists Alcohol/Substance Use Screening 02/12/2025 02/13/2024 Diabetes: Foot Exam 04/23/2025 04/23/2024, 04/23/2024, 04/23/2024, Additional history exists Tobacco Screening 04/30/2025 04/30/2024 Diabetes: Urine Protein Screening 05/20/2025 05/20/2024, 02/19/2024, 05/26/2023, Additional history exists Lipid Panel 05/20/2025 05/20/2024, 04/28, 06/01/2022, Additional history exists Cervical Cancer Screening 06/22/2025 HPV/Cotest 06/22/2025 06/22/2020, 12/29/2016 Pap Smear 06/22/2025 06/22/2020 DTaP/Tdap/Td Vaccines (3 - Td or Tdap) 01/18/2032 01/17/2022, 04/25/2011, 01/07/2004 Pneumococcal Vaccine: 50+ Years Completed 02/14/2022, 01/01/2009, 01/01/2009 Zoster Vaccines Completed [...] Blood Pressure 129/100(04/23 11:26 AM EST) No Qouc Bermudez PharmD Hemoglobin A1c < 7 Result Component 6(04/23/2024 11:27 AM EST) No Quoc Bermudez PharmD Procedures Procedure Name Priority Date/Time Associated Diagnosis Comments T3, TOTAL Routine 05/20/2024 10:00 AM EDT TSH Routine 05/20/2024 10:00 AM EDT T4, FREE Routine 05/20/2024 10:00 AM EDT LIPID PANEL WITH REFLEX TO DIRECT LDL Routine 05/20/2024 10:00 AM EDT Type 2 diabetes mellitus without complication, without long-term current use of insulin (CMS/HCC) COMPREHENSIVE METABOLIC PANEL Routine 05/20/2024 10:00 AM EDT Type 2 diabetes mellitus without complication, without long-term current use of insulin (CMS/HCC) ALBUMIN, RANDOM URINE W/CREATININE Routine 05/20/2024 9:56 AM EDT Type 2 diabetes mellitus without complication, without long-term current use of insulin (CMS/HCC) CT SINUS WO CONTRAST Routine 05/20/2024 9:42 AM EDT Chronic sinusitis, unspecified location POCT GLYCOSYLATED HEMOGLOBIN (HGB A1C) Routine 04/23/2024 11:27 AM EST Type 2 diabetes mellitus without complication, without long-term current use of insulin (CMS/HCC) POCT GLUCOSE Routine 04/23/2024 11:27 AM EST Type 2 diabetes mellitus without complication, without long-term current use of insulin (CMS/HCC) T3, TOTAL Routine 03/19/2024 10:22 AM EST TSH Routine 03/19/2024 10:22 AM EST T4, FREE Routine 03/19/2024 10:22 AM EST PROPHYLAXIS - ADULT Routine 02/19/2024 1 1:00 AM EST Periodontal disease Dental calculus HEPATITIS C AB W/REFL TO HCV RNA, QN, PCR Routine 02/13/2024 10:03 AM EST Routine screening for STI (sexually transmitted infection) BITEWINGS - 4 RADIOGRAPHIC IMAGES Routine 06/15/2023 10:00 AM EDT PERIODIC ORAL EVALUATION - ESTABLISHED PATIENT Routine 06/15/2023 10:00 AM EDT HIV 1/2 ANTIGEN/ANTIBODY, FOURTH GENERATION W/RFL Routine 04/12/2023 4:03 PM EST BI MAMMOGRAM SCREENING TOMOSYNTHESIS BILATERAL Routine 11/22/2022 10:15 AM EDT INTRAORAL - COMPLETE SERIES OF RADIOGRAPHIC IMAGES Routine 08/27/2020 12:00 AM EDT HPV MRNA E6/E7 Routine 06/22/2020 6:38 AM EDT THINPREP PAP Routine 06/22/2020 6:38 AM EDT from Last 3 Months or Most Recently Relevant to Health Maintenance Results * (ABNORMAL) Lipid Panel with Reflex to Direct LDL (05/20/2024 10:00 AM EDT) Triglycerides 162(H) <150 mg/dL [facility] Comment:Desirable Triglyceri de: less than 150 mg/dLBorderline High Triglyceride 150-199 mg/dLHigh Triglyceride: 200-499 mg/dLVery High Triglyceride: greater than or equal to 5OO mg/dL Cholesterol 98 <200 mg/dL [facility] Comment:Desirable Cholestero l: less than 200 mg/dLBorderline High Cholesterol: 200-239 mg/dLHigh Cholesterol: greater than 239 mg/dL LDL Cholesterol Calculated 28 <100 mg/dL [facility] Comment:Desirable LDL: less than 100 mg/dLNear Optimal/Above Optimal LDL: 110- 129 mg/dLBorderline High LDL: 130-159 mg/dLHigh LDL: 160-189 mg/dLVery High LDL: greater than or equal to 190 mg/dL HDL Cholesterol 38(L) >40 mg/dL [facility] Comment:Desirable HDL: great er than 40 mg/dL Note: This HDL assay may give artificially low results in patients with liver disease. Blood 05/20/2024 10:0 0 AM EDT 05/20/2024 10:00 AM EDT Yeni Willoughby MD LAB BLOOD ORDERABLES Final Resul t Performing Organization Address [facility] Co de Phone Number [facility] [address] [place] [address] [phone] * (ABNORMAL) T3, Total (05/20/2024 10:00 AM EDT) Only the most recent of2 resultswithin the time period is included. T3, Total 63(A) 76 - 181 ng/dL [facility] Comment:THIS TEST WAS PERFOR MED AT:[facility] [place] [phone] GANDHI MD 05/20/2024 10:0 0 AM EDT 05/20/2024 10:00 AM EDT us Generic External Data Provider LAB BLOOD ORDERAB LES Final Result Performing Organization Address [facility] Co de Phone Number [facility] [address] [place] [address] [phone] * (ABNORMAL) TSH (05/20/2024 10:00 AM EDT) Only the most recent of2 resultswithin the time period is included. Thyroid Stimulating Hormone 4.96(H) 0.32 - 4.0 uIU/mL [facility] Comment:Note: A sustained TS H level above 2.5 uIU/mL may warrant further investigation. TSH 3rd Generation ([facility]) 05/20/2024 10:0 0 AM EDT 05/20/2024 10:00 AM EDT Generic External Data Provider LAB BLOOD ORDERAB LES Final Result Performing Organization Address City/[facility]/ZIP Co de Phone Number [facility] [address] [place] [phone] * T4, Free (05/20/2024 10:00 AM EDT) Only the most recent of2 resultswithin the time period is included. Free T4 (Free Thyroxine) 1.14 0.71 - 1.85 ng/dL [facility] 05/20/2024 10:0 0 AM EDT 05/20/2024 10:00 AM EDT Generic External Data Provider LAB BLOOD ORDERAB LES Final Result Performing Organization Address [facility] Co de Phone Number [facility] [address] [place] [phone] * (ABNORMAL) Comprehensive Metabolic Panel (05/20/2024 10:00 AM EDT) Pathologist [facility] Sodium 141 135 - 145 mmol/L [facility] Potassium 4.8 3.3 - 5.1 mmol/L [facility] Chloride 106 96 - 108 mmol/L [facility] Carbon Dioxide 26 22 - 29 mmol/L [facility] Anion Gap 14 12 - 20 [facility] Urea Nitrogen (BUN) 26(H) 9 - 16 mg/dL [facility] Creatinine, Serum 1.15 0.5 - 1.4 mg/dL [facility] Estimated Glomerular Filt Rate 48 [facility] Comment:Chronic Kidney Disea se: Estimated GFR < 60 mL/min/1.79i2Ypawym Kidney Disease: Estimated GFR < 15 mL/min/1.73m2 Glucose 88 60 - 115 mg/dL [facility] Calcium 10.0 8.4 - 10.2 mg/dL [facility] Bilirubin, Total 0.9 0.0 - 1.0 mg/dL [facility] Aspartate Amino Transferase 23 5 - 31 U/L [facility] Alanine Aminotransferase 18 0 - 31 U/L [facility] Total Protein 8.3(H) 6.5 - 8.0 g/dL [facility] Albumin Level 4.2 3.5 - 5.0 g/dL [facility] Alkaline Phosphatase 85 39 - 117 U/L [facility] Blood Venous blood specimen / Unknown 05/20/2024 10:00 AM EDT 05/20/2024 10:00 AM EDT us Yeni Willoughby MD LAB BLOOD ORDERABLES Final Resul t Performing Organization Address [facility] de Phone Number [facility] [address] [place] [phone] * Albumin, Random Urine W/Creatinine (05/20/2024 9:56 AM EDT) Creatinine, Urine 141.41 mg/dL [facility] Microalbumin Urine 19.0 mg/L [facility] Microalbum Creatinine Ratio Ur 13.4 <30 ug/mg cr [facility] Comment:Albumin/Creatinine R atio Reference Ranges: Normal: < 30 ug/mg creatinine Microalbuminuria: 30 - 300 ug/mg creatinineClinical Albuminuria: > 300 ug/mg creatinine Urine 05/20/2024 9:56 AM EDT 05/20/2024 10:56 AM EDT us Yeni Willoughby MD LAB URINE ORDERABLES Final Resul t Performing Organization Address [facility] Co de Phone Number [facility] [address] [place] [phone] * CT Sinus w/o Contrast (05/20/2024 9:42 AM EDT) Anatomical Region Laterality Modality Computed Tomogra phy 05/20/2024 9:42 AM EDT Narrative 05/20/2024 3:02 PM EDT ? [facility] ?[address] ?[place] [address] ? CT Scan Report ? Signed ? Patient: Barth,Jennifer I ?MR#: [id number] ? : 1965 ?Acct:[id number] ? Age/Sex: 59 / F ?ADM Date: 05/20/24 ? Loc: HO.CT ? Attending Dr: Yeni Willoughby MD ? Ordering Physician: Yeni Willoughby MD ?? Date of Service: 05/20/24 ?? Procedure(s): CT sinus wo IV con ?? Accession Number(s): [id number] ? cc: Yeni Willoughby MD ? Report Number: ?? [id number]: Total DLP = ?? 81.00 mGy-cm ?? EXAMINATION: ??CT SINUSES WITHOUT IV CONTRAST ? HISTORY: ??CHRONIC SINUSITIS ? TECHNIQUE: ??Serial 1.5 mm helically acquired images were obtained ?? through the paranasal sinuses without IV contrast material. Sagittal ?? and coronal reformatted images were also obtained. ? This CT exam was performed with one or more of the following dose ?? reduction techniques: automated exposure control, adjustment of the mA ?? and/or kV according to patient size, use of iterative reconstruction ?? technique. ? DLP: 81 mGy-cm ? COMPARISON: Correlation is made with a CTA of the head and neck dated ?? 10/21/2023. ? FINDINGS: ? PARANASAL SINUSES: ??There is opacification of a single posterior right ?? ethmoid air cell. The left ethmoid sinuses and bilateral frontal, ?? maxillary, and sphenoid sinuses are well-aerated and clear. ??No mucosal ?? thickening or air/fluid levels are identified. ??The ostiomeatal ?? complexes are patent bilaterally. ??The mastoid air cells and middle ear ?? cavities are well pneumatized bilaterally. ? BONES/JOINTS: ??There is minimal nasal septal deviation to the left. ??No ?? acute fractures are identified. ? INCLUDED ORBITS AND INTRACRANIUM : Unremarkable. ??The olfactory grooves ?? appear within normal limits bilaterally. ? OTHER COMMENTS AND FINDINGS: None. ? CT/CT sinus wo IV con ?? IMPRESSION: ? Opacification of a single posterior right ethmoid air cell. Otherwise ?? unremarkable unenhanced CT of the paranasal sinuses. ? Electronically signed by: ??Jatinder Carlos MD ??05/20/2024 03:00 PM EDT ? Dictated By: ?Jatinder Carlos MD ? Signed By: ?<Electronically signed by Jatinder Carlos MD in OV> ?05/20/24 1500 ? DD/ 0942 ? TD/TT: 05/20/24 1021 ? Supervisor [employer]: ? Procedure Note Santiago Ruelas - 05/20/[address] [place] [address] [address] Scan Report Signed Patient: Jennifer Barth IMR#: [id number] : 1965Acct:[id number] Age/Sex: 59 / FADM Date: 05/20/24 Loc: HO.CT Attending Dr: Yeni Willoughby MD Ordering Physician: Yeni Willoughby MD Date of Service: 05/20/24 Procedure(s): CT sinus wo IV con Accession Number(s): [id number] cc: Yeni Willoughby MD Report Number: [id number]: Total DLP = 81.00 mGy-cm EXAMINATION: CT SINUSES WITHOUT IV CONTRAST HISTORY: CHRONIC SINUSITIS TECHNIQUE: Serial 1.5 mm helically acquired images were obtained through the paranasal sinuses without IV contrast material. Sagittal and coronal reformatted images were also obtained. This CT exam was performed with one or more of the following dose reduction techniques: automated exposure control, adjustment of the mA and/or kV according to patient size, use of iterative reconstruction technique. DLP: 81 mGy-cm COMPARISON: Correlation is made with a CTA of the head and neck dated 10/21/2023. FINDINGS: PARANASAL SINUSES: There is opacification of a single posterior right ethmoid air cell. The left ethmoid sinuses and bilateral frontal, maxillary, and sphenoid sinuses are well-aerated and clear. No mucosal thickening or air/fluid levels are identified. The ostiomeatal complexes are patent bilaterally. The mastoid air cells and middle ear cavities are well pneumatized bilaterally. BONES/JOINTS: There is minimal nasal septal deviation to the left. No acute fractures are identified. INCLUDED ORBITS AND INTRACRANIUM : Unremarkable. The olfactory grooves appear within normal limits bilaterally. OTHER COMMENTS AND FINDINGS: None. CT/CT sinus wo IV con IMPRESSION: Opacification of a single posterior right ethmoid air cell. Otherwise unremarkable unenhanced CT of the paranasal sinuses. Electronically signed by: Jatinder Carlos MD 05/20/2024 03:00 PM EDT RP Dictated By: Jatinder Carlos MD Signed By: <Electronically signed by Jatinder Carlos MD in OV> 05/20/24 1500 DD/ 0942 TD/TT: 05/20/24 1021 Super[employer]: us Yeni Willoughby MD IMG CT PROCEDURES Final Result * POCT glycosylated hemoglobin (Hgb A1c) (04/23/2024 11:27 AM EST) Hemoglobin A1C 6.0 4.0 - 6.0 % QC Media Lot # [id number] Lot# Expiration Date Blood Capillary blood specimen / Unknown 04/23/2024 11:27 AM EST us Yeni Willoughby MD POINT OF CARE TEST ENTER/EDIT OR DERABLES Final Result * POCT glucose manually resulted (04/23/2024 11:27 AM EST) Pathologist [facility] Glucose Blood, POC 146 60 - 200 mg/dL QC Media Lot # [id number] Lot# Expiration Date [id number] Blood Capillary blood specimen / Unknown 04/23/2024 11:27 AM EST Yeni Willoughby MD POINT OF CARE TEST ENTER/EDIT OR DERABLES Final Result * Hepatitis C Antibody with Reflex to HCV, RNA, Quantitative, Real-Time PCR (02/13/2024 10:03 AM EST) [facility] Hepatitis C Antibody Nonreactive Nonreactive [facility] Comment:Antibodies to HCV no t detected; does not exclude early acuteHCV infection. Blood Venous blood specimen / Unknown 02/13/2024 10:03 AM EST 02/13/2024 11:03 AM EST Yeni Willoughby MD LAB BLOOD ORDERABLES Final Resul t [facility] [address] [place] [phone] * HIV-1/2 Antigen and Antibodies, Fourth Generation, with Reflexes (04/12/2023 4:03 PM EST) Pathologist [facility] HIV AB/AG Nonreactive Nonreactive [facility] Comment:HIV-1 p24 Ag and/or HIV-1/HIV-2 Ab not detected.A test result that is nonreactive does not exclude thepossibility of exposure to or infection with HIV-1 and/orHIV-2. Nonreactive results in this assay for individualswith prior exposure to HIV-1 and/or HIV-2 may be due toantigen and antibody levels that are below the limit ofdetection of this assay.The [employer] HIV Ag/Ab Combo assay result andsupplemental assay results should be interpreted inconjunction with the patient's clinical presentation,history and other laboratory results. If the results areinconsistent with clinical evidence, additional testing issuggested to confirm the result. 04/12/2023 4:03 PM EST 04/12/2023 4:03 PM EST us Generic External Data Provider LAB BLOOD ORDERAB LES Final Result [facility] [address] [facility] [place] [phone] * BI Mammogram Screening Tomosynthesis Bilateral (11/22/2022 10:15 AM EDT) Anatomical Region Laterality Modality Breast Bilateral Mammography 11/22/2022 10:1 5 AM EDT Narrative 12/14/2022 9:30 PM EDT ? [facility] ? [address] ?[place] [address] ? Mammography Report ? Signed ? Patient: Barth,Jennifer I ?MR#: [id number] ? : 1965 ?Acct:[id number] ? Age/Sex: 57 / F ?ADM Date: 11/22/22 ? Loc: HO.MAMMO ? Attending Dr: Yeni Willoughby MD ? Ordering Physician: Yeni Willoughby MD ?Results: 2Benign F ?? indings ? Date of Service: 11/22/22 ?Follow Up: 1 Year From Orig ?? inal Mammogram ? Procedure(s): MM tomosynthesis screening BI ?? Accession Number(s): [id number] ? cc: Yeni Willoughby MD ? EXAMINATION: ?? MM SCREENING DIGITAL BREAST TOMOSYNTHESIS, BILATERAL ? CLINICAL INFORMATION: ? Screening. Asymptomatic. ? COMPARISON: ?? Mammography: This study is compared with prior exams dating back to ?? 2018. ? TECHNIQUE: ?? Digital breast tomosynthesis is [...] 12/14/226 ? DD/ 1015 ? TD/TT: ? Supervisor [employer]: ? Procedure Note Jakubter, Image - 12/14/2022 [facility] [address] [place] [address] [place] [address] Mammography Report Signed Patient: Jennifer Barth [facility]#: [id number] : 1965Acct:[id number] Age/Sex: 57 / FADM Date: 11/22/22 Loc: CARMELO Attending Dr: Yeni Willoughby MD Ordering Physician: Yeni Willoughby MDResults: 2Benign F indings Date of Service: 11/22/22Follow Up: 1 Year From [facility] ina Mammogram Procedure(s): MM tomosynthesis screening BI Accession Number(s): [id number] cc: Yeni Willoughby MD EXAMINATION: MM SCREENING DIGITAL BREAST TOMOSYNTHESIS, [...] signed by Debi Funk MD in OV> 12/14/222125 DD/ 1015 TD/TT: Supervisor [employer]: Yeni Willoughby MD [facility] BI PROCEDURES Edited Result - Final * THINPREP PAP (06/22/2020 6:38 AM EDT) Clinical Information: None given [facility] COMMENT SEE COMMENT FOUNDAT[facility] ON [...] historic and ?? current clinical information. ?? Erp Programmer : SEE COMMENT [facility] Comment: DMM, CT(ASCP) CT screening location: [address] ??[id number] Interpretation/R esult: Negative for intraepithelial lesion or malignancy. [facility] LMP: NONE GIVEN [facility]OUND[facility] N LAB SYSTEM Prev. BX: NONE GIVEN [facility] Prev. PAP: NONE GIVEN [facility]OUNDAT[facility] ON LAB SYSTEM SOURCE: None given [facility] Statement Of Adequacy: SEE COMMENT [facility] Comment: Satisfactory for evaluation. Endocervical/transformation zone component present. Age and/or menstrual status not provided 06/22/2020 6:38 AM EDT us Yeni Willoughby MD LAB PATHOLOGY ORDERABLES Final R esult Performing Organization Address [facility] de Phone Number [facility] [address] * HPV mRNA E6/E7 (06/22/2020 6:38 AM EDT) HPV nRNA E6/E7 Not Detected Not Detected [facility] Comment: Methodology: Middle [employer] Resource Teacher-Mediated Amplification This assay detects E6/E7 viral messenger RNA (mRNA) from 14 high-risk HPV types (16,18,31,33,35,39,45,51,52,56,58,59,66,68). ? The analytical performance characteristics of this assay have been determined by [employer]. The modifications have not been cleared or approved by the FDA. This assay has been validated pursuant to the CLIA regulations and is used for clinical purposes. ?? For additional information, please refer to http://education.[employer]/faq/RMW196a3 (This link if provided for information/ educational purposes only.) 06/22/2020 6:38 AM EDT us Yeni Willoughby MD LAB BLOOD ORDERABLES Final Resul t Performing Organization Address [facility] de Phone Number [facility] [address] from Last 3 Months or Most Recently Relevant to Health Maintenance Insurance DENTAL - [facility] Care Teams Work Environment Safety Inspector Relationship Specialty Start Date End Date Yeni Willoughby MD [address] [place] [phone] PCP - General Family Medicine 02/27/18 Quoc Bermudez, PharmD [address] [place] [phone] Pharmacist Internal Medicine 02/14/22 [facility] 11/02/23
--- OUTSIDE RECORDS SUMMARY | 2024-05-28 11:38 | XMS_ITS | Encounter Summary ---
Author Organization [facility] [employer] Address [address] [facility] 7t [place] [address] Care Team Providers Care Sustainable Design Consultant Name Role Phone Yeni Willoughby MD Primary Care Provider [phone] Quoc Bermudez PharmD Unavailable [phone] Encounter Details Date Type Department Care Team ([facility] st Contact Info) Description 06/03/2022 Orders Only [facility] MEDICINE [address] [place] [address] Yeni Willoughby MD [address] [place] [address] Hypomagnesemia (Primary Dx); Lesion of parotid gland; [...] Description 08/20/2024 1:00 PM EDT Office Visit [facility] ADULT DENTAL [address] [place] [address] Crystal Melendrez [address] [place] [address] 09/27/2024 11:00 AM EDT Medication Management [facility] [address] [place] [address] Quoc Bermudez, Shannen [address] [place] [address] documented as of this encounter Goals Goal Patient Goal Type Associated Problems Recent Progress Patient-Stated? 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
--- OUTSIDE RECORDS SUMMARY | 2024-05-28 11:38 | XMS_ITS | Encounter Summary ---
Author Organization [employer] Address [address] [facility] 7 [place] [address] Care Team Providers Care Airport Duty Manager Name Role Phone Yeni Willoughby MD Primary Care Provider [phone] Quoc Bermudez PharmD Unavailable [phone] Reason for Referral * Medications - Closed Specialty Diagnoses / Procedures Referred By Contac t Referred To Contact Diagnoses Type 2 diabetes mellitus without complication, without long-term current use of insulin (CMS/[facility]) Yeni Willoughby MD [address] [place] [address] Phone: tel: fax: Referral ID Status Reason Start Date Expiration Date Visits Re quested Visits Authorized [id number] Closed 1 1 Encounter Details Date Type Department Care Team (Late st Contact Info) Description 10/18/2023 Orders Only [facility] MEDICINE [address] [place] [address] [phone] Yeni Willoughby MD [address] [place] [phone] Hypomagnesemia (Primary Dx); Dehydration; CHEMO (acute kidney [...] Description 08/20/2024 1:00 PM EDT Office Visit [facility] ADULT DENTAL [address] [place] [address] Crystal Melendrez [address] [place], [place] [phone] 09/27/2024 11:00 AM EDT Medication Management [facility] [address] [place] [address] Quoc Bermudez, PharmD [address] [place] [address] Scheduled Orders Name Type Priority Associated Diagnoses Orde r Schedule Basic Metabolic Panel Lab Routine Hypomagnesemia Dehydration CHEMO (acute kidney injury) ([facility]) Expected: 10/23/2023 (Approximate), Expires: 10/17/2024 Magnesium Lab Routine Hypomagnesemia Dehydration CHEMO (acute kidney injury) ([facility]) Expected: 10/23/2023 (Approximate), Expires: 10/17/2024 documented as [...] magnesium metabolism Dehydration CHEMO (acute kidney injury) ([facility]) Type 2 diabetes mellitus without complication, without long-term current use of insulin ([facility]) documented in this encounter Additional Health Concerns Assessment Noted Time PHQ-9 Depression Total Score: 0 05/25/19 24 9:46 AM EDT documented as of this encounter Care Teams Airport Duty Manager Relationship Specialty Start Date End Date Yeni Willoughby MD [address] [place] [address] PCP - General Family Medicine 02/27/18 Quoc Bermudez, Shannen [address] [place] [address] Pharmacist Internal Medicine 02/14/22 [facility] 11/02/23 documented as of this encounter
--- OUTSIDE RECORDS SUMMARY | 2024-05-28 11:38 | XMS_ITS | Encounter Summary ---
Author Organization [facility] Address [address] [facility] 7t [place] [address] Care Team Providers Care Mold Carpenter Name Role Phone Yeni Willoughby MD Primary Care Provider Quoc Bermudez PharmD Unavailable [phone] Reason for Visit * Reason Onset Date Comments Referral 11/04/2022 Encounter Details Date Type Department Care Team ([facility] st Contact Info) Description 11/04/2022 Telephone [facility] MEDICINE [address] [place] [address] Yeni Willoughby MD [address] [place] [address] Referral Social History Tobacco Use Types Packs/Day [...] Description 08/20/2024 1:00 PM EDT Office Visit [facility] ADULT DENTAL [address] [place], [place] [phone] Parvin, Crystal [address] [place] [address] 09/27/2024 11:00 AM EDT Medication Management [facility] MEDICINE [address] [place] [address] Quoc Bermudez, Shannen [address] [place] [address] documented as of this encounter Goals Goal Patient Goal Type Associated Problems Recent Progress Patient-Stated? Author Blood Pressure < 140/90 Blood Pressure 129/100(2024 11:26 AM EST) No Quoc Bermudez, PharmErin documented as of this encounter Visit Diagnoses Not on filedocumented in this encounter Additional Health Concerns Assessment Noted Time PHQ-9 Depression Total Score: 3 06/02/19 23 11:01 AM EDT documented as of this encounter Care Teams Mold Carpenter Relationship Specialty Start Date End Date Yeni Willoughby MD [address] [place] [phone] PCP - General Family Medicine 02/27/18 Quoc Bermudez, PharmD [address] [place] [phone] Pharmacist Internal Medicine 02/14/22 [facility] 11/02/23 documented as of this encounter
--- OUTSIDE RECORDS SUMMARY | 2024-05-28 11:38 | XMS_ITS | Encounter Summary ---
Author Organization [employer] Address [address] [facility] 7t [place] [address] Care Team Providers Care Truck Driver Supervisor Name Role Phone Yeni Willoughby MD Primary Care Provider [phone] Quoc Bermudez PharmD Unavailable [phone] Encounter Details Date Type Department Care Team ([facility] Contact Info) Description 06/21/2023 Orders Only [facility] MEDICINE [address] [place], [place] [phone] Yeni Willoughby MD [address] [place], [place] [phone] Social History Tobacco Use Types Packs/Day Years [...] Description 08/20/2024 1:00 PM EDT Office Visit [facility] ADULT DENTAL [address] [place] [address] Parvin, Crystal [address] [place] [address] 09/27/2024 11:00 AM EDT Medication Management [facility] MED[facility]INE [address] [place] [address] Quoc Bermudez PharmD [address] [place] [address] documented as of this encounter Goals Goal [...] documented as of this encounter Care Teams Truck Driver Supervisor Relationship Specialty Start Date End Date Yeni Willoughby MD [address] [place] [phone] PCP - General Family Medicine 02/27/18 Quoc Bermudez, PharmD [address] [place] [phone] Pharmacist Internal Medicine 02/14/22 [facility] 11/02/23 documented as of this encounter
--- OUTSIDE RECORDS SUMMARY | 2024-05-28 11:38 | XMS_ITS | Encounter Summary ---
Author Organization [employer] Address [address] [facility] 7t [place] [address] Care Team Providers Care Automatic Beading Lathe Operator Name Role Phone Yeni Willoughby MD Primary Care Provider [phone] Quoc Bermudez PharmD Unavailable [phone] Reason for Visit * Reason Onset Date Comments Nurse Triage 12/08/2023 Encounter Details Date Type Department Care Team ([facility] st Contact Info) Description 12/08/2023 Telephone [facility] MEDICINE [address] [place] [address] Yeni Willoughby MD [address] [place] [address] Nurse Triage Social History Tobacco Use Types [...] 12/08/2023 10:56 AM EDT Called pt. Via [employer] cente[employer] and edger [id number] Jay. Pt. States that she has been itchy all over herbody x 1 week. Itchiness is worse on neck, arms and on her panty line. Pt. Unsure if it is the medications that she got sent home from [facility] with on 10/26/23 Gabapentin 100mg Three x a day and also Meclizine 25mg 1 tablet 3 times a day as needed. Pt does have rash on neck and hands. Pt denies any itchiness in throat or swelling in throat. Pt denies itchiness on head. I advised that pt. Needs to be seen today or tomorrow in [facility] walk in. Hours provided and pt. States [...] Description 08/20/2024 1:00 PM EDT Office Visit [facility] ADULT DENTAL [address] [place] [address] Crystal Melendrez [address] [place] [address] 09/27/2024 11:00 AM EDT Medication Management [facility] MEDICINE [address] [place] [address] Quoc Bermudez PharmD [address] [place] [address] documented as of this encounter Goals Goal [...] documented as of this encounter Care Teams Automatic Beading Lathe Operator Relationship Specialty Start Date End Date Yeni Willoughby MD [address] [place] [address] PCP - General Family Medicine 02/27/18 Quoc Bermudez, PharmD [address] [place] [address] Pharmacist Internal Medicine 02/14/22 [facility] 11/02/23 documented as of this encounter
--- OUTSIDE RECORDS SUMMARY | 2024-05-28 11:38 | XMS_ITS | Encounter Summary ---
Author Organization [employer] Address [address] [place] [address] 7 [place] [address] Care Team Providers Care Occupational Health Rn Name Role Phone Yeni Willoughby MD Primary Care Provider [phone] Quoc Bermudez PharmD Unavailable [phone] Reason for Referral * Consultation (Routine) - Closed Specialty Diagnoses / Procedures Referred By Contac t Referred To Contact Allergy Diagnoses Pruritic rash Yeni Willoughby MD [address] [place] [address] Phone: tel: fax: Saúl Suarez MD [address] [place] [address] Drive [address] [place] [address] Phone: tel: fax: Referral ID Status Reason Start Date Expiration Date V isits Requested Visits Authorized [id number] Closed Specialty Services Required 01/09/2024 01/08/2025 1 1 Encounter Details Date Type Department Care Team (Late st Contact Info) Description 01/09/2024 Orders Only [facility] MEDICINE [address] [place], [place] [phone] Yeni Willoughby MD [address] [place], [place] [phone] Pruritic rash (Primary Dx) Social History Tobacco [...] Description 08/20/2024 1:00 PM EDT Office Visit [facility] ADULT DENTAL [address] [place] [address] Crystal Melendrez [address] [place] [address] 09/27/2024 11:00 AM EDT Medication Management [facility] MEDICINE [address] [place] [address] Quoc Bermudez, RazD [address] [place] [address] Scheduled Referrals Name Type Priority Associated Diagnoses Orde r Schedule Referral to Allergy Outpatient Referral Routine Pruritic rash Expected: 01/09/2024 (Approximate), Expires: 01/08/2025 documented as of this encounter Goals Goal Patient Goal Type Associated Problems Recent Progress Patient-Stated? Author Blood Pressure < 140/90 Blood Pressure 129/100(04/23 11:26 AM EST) No uQoc Bermudez, PharmErin Hemoglobin A1c < 7 Result Component 6(04/23/2024 11:27 AM EST) No Quoc Bermudez PharmD documented as of this encounter Visit Diagnoses Diagnosis Pruritic rash- Primary documented in this encounter Additional Health Concerns Assessment Noted Time PHQ-9 Depression Total Score: 0 05/25/19 24 9:46 AM EDT documented as of this encounter Care Teams Occupational Health Rn Relationship Specialty Start Date End Date Yeni Willoughby MD [address] [place] [address] PCP - General Family Medicine 02/27/18 Quoc Bermudez, RazD [address] [place] [address] Pharmacist Internal Medicine 02/14/22 [facility] 11/02/23 documented as of this encounter
== END 2024-05-28 11:07 | disposition home or self-care (01) ==
LOC: HO.HSMS 09:57
PROVIDERS: PCP Family Medicine; Visit Provider Physician Assistant Medical
DX: R53.83 Other fatigue (principal); G47.33 Obstructive sleep apnea (adult) (pediatric); J32.3 Chronic sphenoidal sinusitis; R42 Dizziness and giddiness
CPT/HCPCS: 99214

== ENCOUNTER 2024-05-28 12:11 | Outpatient (REF) | payer OTHER, SELFPAY ==
[2024-05-28 14:12] LABS: Cholesterol 97 mg/dL (<200); HDL Cholesterol 35 mg/dL (>40); LDL Cholesterol Calculated 14 mg/dL (<100); Triglycerides 243 mg/dL (<150)
--- OUTSIDE RECORDS SUMMARY | 2024-05-28 14:30 | XMS_ITS | Encounter Summary ---
Author Organization [employer] Address [address] [place] [address] 7 [place] [address] Care Team Providers Care Mental Health Director Name Role Phone Yeni Willoughby MD Primary Care Provider [phone] Quoc Bermudez PharmD Unavailable [phone] Reason for Referral * Consultation (Routine) - Authorized Specialty Diagnoses / Procedures Referred By Contjuan diego t Referred To Contact Pharmacy Diagnoses Primary hypertension Type 2 diabetes mellitus without complication, without long-term current use of insulin (CMS/HCC) Asthma-COPD overlap syndrome (CMS/HCC) Tobacco use Yeni Willoughby MD [address] [place] [address] Phone: tel: fax: Referral ID Status Reason Start Date Expiration Date Visits Requested Visits Authorized [id number] Authorized Consult and Treat 03/01/2024 03/01/2025 6 6 Encounter Details Date Type Department Care Team (Late st Contact Info) Description 03/01/2024 Orders Only [facility] MEDICINE [address] [place] [address] Yeni Willoughby MD [address] [place], [place] [phone] Primary hypertension (Primary Dx); Type 2 diabetes [...] Description 08/20/2024 1:00 PM EDT Office Visit [facility] ADULT DENTAL [address] [place] [address] Crystal Melendrez [address] [place] [address] 09/27/2024 11:00 AM EDT Medication Management [facility] MEDICINE [address] [place] [address] Quoc Bermudez PharmD [address] [place] [address] Scheduled Referrals Name Type Priority Associated Diagnoses [...] use of insulin (CMS/HCC) Asthma-COPD overlap syndrome ([facility]) Tobacco use documented in this encounter Additional Health Concerns Assessment Noted Time PHQ-9 Depression Total Score: 0 05/25/19 24 9:46 AM EDT documented as of this encounter Care Teams Mental Health Director Relationship Specialty Start Date End Date Yeni Willoughby MD [address] [place] [address] PCP - General Family Medicine 02/27/18 Quoc Bermudez, Shannen [address] [place] [address] Pharmacist Internal Medicine 02/14/22 [facility] 11/02/23 documented as of this encounter
--- OUTSIDE RECORDS SUMMARY | 2024-05-28 14:30 | XMS_ITS | Encounter Summary ---
Author Organization [employer] Address [address] [place] [address] 7 [place] [address] Care Team Providers Care Sewing Machine Repairer Name Role Phone Yeni Willoughby MD Primary Care Provider [phone] Quoc Bermudez PharmD Unavailable [phone] Reason for Referral * Consultation (Routine) - Closed Specialty Diagnoses / Procedures Referred By Contac t Referred To Contact Allergy Diagnoses Pruritic rash Yeni Willoughby MD [address] [place] [address] Phone: tel: fax: Saúl Suarez MD [address] [place] [address] Drive [address] [place] [address] Phone: tel: fax: Referral ID Status Reason Start Date Expiration Date V isits Requested Visits Authorized [id number] Closed Specialty Services Required 01/09/2024 01/08/2025 1 1 Encounter Details Date Type Department Care Team (Late st Contact Info) Description 01/09/2024 Orders Only [facility] MEDICINE [address] [place], [place] [phone] Yeni Willoughby MD [address] [place], [place] [phone] Pruritic rash (Primary Dx) Social History Tobacco [...] 08/20/2024 1:00 PM EDT Office Visit [facility] ADULT DENTAL [address] [place] [address] Crystal Melendrez [address] [place] [address] 09/27/2024 11:00 AM EDT Medication Management [facility] MEDICINE [address] [place] [address] uQoc Bermudez, RazD [address] [place] [address] Scheduled Referrals Name Type Priority Associated Diagnoses [...] documented as of this encounter Care Teams Sewing Machine Repairer Relationship Specialty Start Date End Date Yeni Willoughby MD [address] [place] [address] PCP - General Family Medicine 02/27/18 Quoc Bermudez, RazD [address] [place] [address] Pharmacist Internal Medicine 02/14/22 [facility] 11/02/23 documented as of this encounter
--- OUTSIDE RECORDS SUMMARY | 2024-05-28 14:31 | XMS_ITS | Encounter Summary ---
Author Organization [employer] Address [address] [facility] 7t [place] [address] Care Team Providers Care Blanket Cutting Machine Operator Name Role Phone Yeni Willoughby MD Primary Care Provider [phone] Quoc Bermudez PharmD Unavailable [phone] Encounter Details Date Type Department Care Team ([facility] Contact Info) Description 05/26/2023 Orders Only [facility] MEDICINE [address] [place], [place] [phone] Yeni Willoughby MD [address] [place], [place] [phone] Postablative hypothyroidism (Primary Dx); Hypomagnesemia Social History [...] Description 08/20/2024 1:00 PM EDT Office Visit [facility] ADULT DENTAL [address] [place] [address] Parvin, Crystal [address] [place] [address] 09/27/2024 11:00 AM EDT Medication Management [facility] MEDICINE [address] [place] [address] Quoc Bermudez PharmD [address] [place] [address] Scheduled Orders Name Type Priority Associated Diagnoses [...] Stimulating Hormone 0.05(L) 0.32 - 4.0 uIU/mL [facility] Comment:TSH 3rd Generation ( [facility]) Blood Venous blood specimen / Unknown 06/21/2023 11:29 AM EDT 06/21/2023 1:52 PM EDT us Yeni Willoughby MD LAB BLOOD ORDERABLES Final Resul t Performing Organization Address [facility] de Phone Number [facility] [address] [place] [phone] * T4, Free (06/21/2023 11:29 AM EDT) Free T4 (Free Thyroxine) 1.31 0.71 - 1.85 ng/dL [facility] Blood Venous blood specimen / Unknown 06/21/2023 11:29 AM EDT 06/21/2023 1:52 PM EDT us Yeni Willoughby MD LAB BLOOD ORDERABLES Final Resul t Performing Organization Address [facility] Co de Phone Number [facility] [address] [place] [phone] documented in this encounter Visit Diagnoses Diagnosis Postablative hypothyroidism- Primary Other postablative hypothyroidism Hypomagnesemia Disorders of magnesium metabolism documented in this encounter Additional Health Concerns Assessment Noted Time PHQ-9 Depression Total Score: 0 05/25/19 24 9:46 AM EDT documented as of this encounter Care Teams Blanket Cutting Machine Operator Relationship Specialty Start Date End Date Yeni Willoughby MD [address] [place] [address] [place] [address] PCP - General Family Medicine 02/27/18 Quoc Bermudez, Shannen [address] [place] [address] Pharmacist Internal Medicine 02/14/22 [facility] 11/02/23 documented as of this encounter
--- OUTSIDE RECORDS SUMMARY | 2024-05-28 14:31 | XMS_ITS | Encounter Summary ---
Author Organization [employer] Address 75 [facility] 7t [place] [address] Care Team Providers Care Director Of Patient Care Name Role Phone Yeni Willoughby MD Primary Care Provider [phone] Quoc Bermudez PharmD Unavailable [phone] Encounter Details Date Type Department Care Team ([facility] Contact Info) Description 02/07/2024 Orders Only [facility] MEDICINE [address] [place], [place] [phone] Yeni Willoughby MD [address] [place], [place] [phone] Social History Tobacco Use Types Packs/Day Years [...] Description 08/20/2024 1:00 PM EDT Office Visit [facility] ADULT DENTAL [address] [place] [address] Parvin, Crystal [address] [place] [address] 09/27/2024 11:00 AM EDT Medication Management [facility] MEDICINE [address] [place] [address] Quoc Bermudez PharmD [address] [place] [address] documented as of this encounter Goals Goal [...] documented as of this encounter Care Teams Director Of Patient Care Relationship Specialty Start Date End Date Yeni Willoughby MD [address] [place] [address] PCP - General Family Medicine 02/27/18 Quoc Bermudez, PharmD [address] [place] [address] Pharmacist Internal Medicine 02/14/22 [facility] 11/02/23 documented as of this encounter
--- OUTSIDE RECORDS SUMMARY | 2024-05-28 14:31 | XMS_ITS | Encounter Summary ---
Author Organization [employer] Address [address] [facility] 7t [place] [address] Care Team Providers Care Oil Pumper Name Role Phone Yeni Willoughby MD Primary Care Provider [phone] Quoc Bermudez PharmD Unavailable [phone] Encounter Details Date Type Department Care Team ([facility] Contact Info) Description 02/07/2024 Orders Only [facility] MED[facility] [address] [place], [place] [phone] Yeni Willoughby MD [address] [place] [address] Hyperkalemia (Primary Dx); Stage 3a chronic kidney [...] Office Visit [facility] ADULT DENTAL [address] [place] [address] Parvin, Crystal [address] [place] [address] 09/27/2024 11:00 AM EDT Medication Management [facility] MEDICINE [address] [place] [address] Quoc Bermudez, PharmD [address] [place] [address] Scheduled Orders Name Type Priority Associated Diagnoses [...] documented as of this encounter Care Teams Oil Pumper Relationship Specialty Start Date End Date Yeni Willoughby MD [address] [place] [address] PCP - General Family Medicine 02/27/18 Quoc Bermudez, PharmD [address] [place] [address] Pharmacist Internal Medicine 02/14/22 [facility] 11/02/23 documented as of this encounter
--- OUTSIDE RECORDS SUMMARY | 2024-05-28 14:31 | XMS_ITS | Encounter Summary ---
Author Organization [employer] [facility] Address [address] [place] [address] 7 [place] [address] Care Team Providers Care Egg Breaker Name Role Phone Yeni Willoughby MD Primary Care Provider [phone] Quoc Bermudez PharmD Unavailable [phone] Encounter Details Date Type Department Care Team (Latest Contact Info) Description 08/27/2020 Abstract [facility] CONVERSIONS Dental, Provider, DDS Social History [...] Description 08/20/2024 1:00 PM EDT Office Visit [facility] ADULT DENTAL [address] [place] [address] Crystal Melendrez [address] [place] [address] 09/27/2024 11:00 AM EDT Medication Management [facility] MEDICINE [address] [place] [address] Quoc Bermudez, PharmD [address] [place] [address] documented as of this encounter Visit Diagnoses Not on filedocumented in this encounter Care Teams Egg Breaker Relationship Specialty Start Date End Date Yeni Willoughby MD [address] [place] [address] PCP - General Family Medicine 02/27/18 Quoc Bermudez, RazD [address] [place] [address] Pharmacist Internal Medicine 02/14/22 [facility] 11/02/23 documented as of this encounter
--- OUTSIDE RECORDS SUMMARY | 2024-05-28 14:31 | XMS_ITS | Encounter Summary ---
Author Organization [employer] [facility] Address [address] [facility] 7t [place] [address] Care Team Providers Care Psych Rn Name Role Phone Yeni Willoughby MD Primary Care Provider [phone] Quoc Bermudez PharmD Unavailable [phone] Reason for Visit * Reason Onset Date Comments Referral 11/04/2022 Encounter Details Date Type Department Care Team ([facility] st Contact Info) Description 11/04/2022 Telephone [facility] MEDICINE [address] [place] [address] Yeni Willoughby MD [address] [place] [address] Referral Social History Tobacco Use Types Packs/Day [...] Description 08/20/2024 1:00 PM EDT Office Visit [facility] ADULT DENTAL [address] [place], [place] [phone] Parvin, Crystal [address] [place] [address] 09/27/2024 11:00 AM EDT Medication Management [facility] MEDICINE [address] [place] [address] Quoc Bermudez, Shannen [address] [place] [address] documented as of this encounter Goals Goal [...] documented as of this encounter Care Teams Psych Rn Relationship Specialty Start Date End Date Yeni Willoughby MD [address] [place] [address] PCP - General Family Medicine 02/27/18 Quoc Bermudez, PharmD [address] [place] [address] Pharmacist Internal Medicine 02/14/22 [facility] 11/02/23 documented as of this encounter
--- OUTSIDE RECORDS SUMMARY | 2024-05-28 14:31 | XMS_ITS | Encounter Summary ---
Author Organization [employer] Address [address] [place] [address] 7 [place] [address] Care Team Providers Care Field Technician Name Role Phone Yeni Willoughby MD Primary Care Provider [phone] Quoc Bermudez PharmD Unavailable [phone] Encounter Details Date Type Department Care Team (Late st Contact Info) Description 04/08/2022 Orders Only [facility] MEDICINE [address] [place] [address] Yeni Willoughby MD [address] [place] [address] Controlled type 2 diabetes mellitus with hyperglycemia, without long-term current use of insulin ([facility]) (Primary Dx); History of Graves' [...] 08/20/2024 1:00 PM EDT Office Visit [facility] ADULT DENTAL [address] [place] [address] Crystal Melendrez [address] [place] [address] 09/27/2024 11:00 AM EDT Medication Management [facility] MEDICINE [address] [place] [address] Quoc Bermudez, PharmD [address] [place] [address] documented as of this encounter Visit Diagnoses Diagnosis Controlled type 2 diabetes mellitus with hyperglycemia, without long-term current use of insulin ([facility])- Primary History of Graves' disease documented in this encounter Care Teams Field Technician Relationship Specialty Start Date End Date Yeni Willoughby MD [address] [place] [phone] PCP - General Family Medicine 02/27/18 Quoc Bermudez, PharmD [address] [place] [phone] Pharmacist Internal Medicine 02/14/22 [facility] 11/02/23 documented as of this encounter
--- OUTSIDE RECORDS SUMMARY | 2024-05-28 14:31 | XMS_ITS | Encounter Summary ---
Author Organization [employer] Address [address] [facility] 7t [place] [address] Care Team Providers Care Hide Worker Name Role Phone Yeni Willoughby MD Primary Care Provider [phone] Quoc Bermudez PharmD Unavailable [phone] Reason for Visit * Reason Onset Date Comments Nurse Triage 12/08/2023 Encounter Details Date Type Department Care Team ([facility] st Contact Info) Description 12/08/2023 Telephone [facility] MEDICINE [address] [place] [address] Yeni Willoughby MD [address] [place] [address] Nurse Triage Social History Tobacco Use Types [...] 12/08/2023 10:56 AM EDT Called pt. Via [employer] guest service agent [id number] Jay. Pt. States that she has been itchy all over herbody x 1 week. Itchiness is worse on neck, arms and on her panty line. Pt. Unsure if it is the medications that she got sent home from [facility] with on 10/26/23 Gabapentin 100mg Three x a day and also Meclizine 25mg 1 tablet 3 times a day as needed. Pt does have rash on neck and hands. Pt denies any itchiness in throat or swelling in throat. Pt denies itchiness on head. I advised that pt. Needs to be seen today or tomorrow in [facility] walk in. Hours provided and pt. States [...] Description 08/20/2024 1:00 PM EDT Office Visit [facility] ADULT DENTAL [address] [place] [address] Crystal Melendrez [address] [place] [address] 09/27/2024 11:00 AM EDT Medication Management [facility] MEDICINE [address] [place] [address] Quoc Bermudez PharmD [address] [place] [address] documented as of this encounter Goals Goal [...] documented as of this encounter Care Teams Hide Worker Relationship Specialty Start Date End Date Yeni Willoughby MD [address] [place] [address] PCP - General Family Medicine 02/27/18 Quoc Bermudez, PharmD [address] [place] [address] Pharmacist Internal Medicine 02/14/22 [facility] 11/02/23 documented as of this encounter
--- OUTSIDE RECORDS SUMMARY | 2024-05-28 14:31 | XMS_ITS | Encounter Summary ---
Author Organization [employer] Address [address] [facility] 7t [place] [address] Care Team Providers Care Demand Equipment Repairer Name Role Phone Yeni Willoughby MD Primary Care Provider [phone] Quoc Bermudez PharmD Unavailable [phone] Encounter Details Date Type Department Care Team ([facility] Contact Info) Description 11/22/2023 Orders Only [facility] MEDICINE [address] [place], [place] [phone] Yeni Willoughby MD [address] [place], [place] [phone] Hypomagnesemia (Primary Dx); Hypocalcemia Social History Tobacco [...] Description 08/20/2024 1:00 PM EDT Office Visit [facility] ADULT DENTAL [address] [place] [address] Parvin, Crystal [address] [place] [address] 09/27/2024 11:00 AM EDT Medication Management [facility] MEDICINE [address] [place] [address] Quoc Bermudez PharmD [address] [place] [address] Scheduled Orders Name Type Priority Associated Diagnoses [...] EST) Magnesium 2.2 1.6 - 2.6 mg/dL [facility] Blood Venous blood specimen / Unknown 02/06/2024 12:07 PM EST 02/06/2024 1:03 PM EST us Yeni Willoughby MD LAB BLOOD ORDERABLES Final Resul t Performing Organization Address City/[facility]/ZIP Co de Phone Number [facility] [address] [place] [address] [phone] * (ABNORMAL) TSH (01/12/2024 11:55 AM EST) Thyroid Stimulating Hormone 0.05(L) 0.32 - 4.0 uIU/mL [facility] Comment:TSH 3rd Generation ( [facility]) Blood Venous blood specimen / Unknown 01/12/2024 11:55 AM EST 01/12/2024 12:57 PM EST us Yeni Willoughby MD LAB BLOOD ORDERABLES Final Resul t Performing Organization Address City/[facility]/ZIP Co de Phone Number [facility] [address] [place] [address] [phone] * T4, Free (01/12/2024 11:55 AM EST) Pathologist [facility] Free T4 (Free Thyroxine) 1.32 0.71 - 1.85 ng/dL [facility] Blood Venous blood specimen / Unknown 01/12/2024 11:55 AM EST 01/12/2024 12:57 PM EST us Yeni Willoughby MD LAB BLOOD ORDERABLES Final Resul t Performing Organization Address [facility] Co de Phone Number [facility] [address] [place] [phone] * (ABNORMAL) Magnesium (01/12/2024 11:55 AM EST) [facility] Magnesium 1.3(LL) 1.6 - 2.6 mg/dL [facility] Comment:Critical value for M AG: Results called to and read back by:Naty Rodriguez Person calling: JIMMY Date: 01/12/24 Time: 1414 Blood Venous blood specimen / Unknown 01/12/2024 11:55 AM EST 01/12/2024 12:57 PM EST us Yeni Willoughby MD LAB BLOOD ORDERABLES Final Resul t Performing Organization Address [facility] de Phone Number [facility] [address] [place] [phone] * (ABNORMAL) Basic Metabolic Panel (01/12/2024 11:55 AM EST) [facility] Sodium 141 135 - 145 mmol/L [facility] Potassium 4.1 3.3 - 5.1 mmol/L [facility] Chloride 106 96 - 108 mmol/L [facility] Carbon Dioxide 29 22 - 29 mmol/L [facility] Anion Gap 10(L) 12 - 20 [facility] Urea Nitrogen (BUN) 20(H) 9 - 16 mg/dL [facility] Creatinine, Serum 0.99 0.5 - 1.4 mg/dL [facility] Estimated Glomerular Filt Rate 57 [facility] Comment:Chronic Kidney Disea se: Estimated GFR < 60 mL/min/[id number] Kidney Disease: Estimated GFR < 15 mL/min/1.73m2 Glucose 97 60 - 115 mg/dL [facility] Calcium 9.3 8.4 - 10.2 mg/dL [facility] Blood Venous blood specimen / Unknown 01/12/2024 11:55 AM EST 01/12/2024 12:57 PM EST us Yeni Willoughby MD LAB BLOOD ORDERABLES Final Resul t [facility] [address] [place] [phone] documented in this encounter Visit Diagnoses Diagnosis Hypomagnesemia- Primary Disorders of magnesium metabolism Hypocalcemia documented in this encounter Additional Health Concerns Assessment Noted Time PHQ-9 Depression Total Score: 0 05/25/19 24 9:46 AM EDT documented as of this encounter Care Teams Demand Equipment Repairer Relationship Specialty Start Date End Date Yeni Willoughby MD [address] [place] [address] PCP - General Family Medicine 02/27/18 Quoc Bermudez, RazD [address] [place] [address] Pharmacist Internal Medicine 02/14/[facility] documented as of this encounter
--- OUTSIDE RECORDS SUMMARY | 2024-05-28 14:31 | XMS_ITS | Encounter Summary ---
Author Organization [facility] Address [address] [place] [address] 7 [place] [address] Care Team Providers Care Veneer Stapler Name Role Phone Yeni Willoughby MD Primary Care Provider [phone] Quoc Bermudez PharmD Unavailable [phone] Encounter Details Date Type Department Care Team (Latest Contact Info) Description 06/26/2018 Abstract [facility] CONVERSIONS Dental, Provider, DDS Social History [...] 08/20/2024 1:00 PM EDT Office Visit [facility] ADULT DENTAL [address] [place] [address] Crystal Melendrez [address] [place] [address] 09/27/2024 11:00 AM EDT Medication Management [facility] MEDICINE [address] [place] [address] Quoc Bermudez, PharmD [address] [place] [address] documented as of this encounter Visit Diagnoses Not on filedocumented in this encounter Care Teams Veneer Stapler Relationship Specialty Start Date End Date Yeni Willoughby MD [address] [place] [address] PCP - General Family Medicine 02/27/18 Quoc Bermudez, RazD [address] [place] [address] Pharmacist Internal Medicine 02/14/22 [facility] 11/02/23 documented as of this encounter
--- OUTSIDE RECORDS SUMMARY | 2024-05-28 14:31 | XMS_ITS | Encounter Summary ---
Author Organization [employer] Address [address] [facility] 7t [place] [address] Care Team Providers Care Automotive Electrician Helper Name Role Phone Yeni Willoughby MD Primary Care Provider [phone] Quoc Bermudez PharmD Unavailable Reason for Visit * Reason Comments Med Refill Encounter Details Date Type Department Care Team ([facility] Contact Info) Description 12/18/2022 Refill [facility] MEDICINE [address] [place] [address] Heidy Garza, ANP [address] [place] [address] Social History Tobacco Use Types Packs/Day Years [...] Description 08/20/2024 1:00 PM EDT Office Visit [facility] ADULT DENTAL [address] [place] [address] Parvin, Crystal [address] [place] [address] 09/27/2024 11:00 AM EDT Medication Management [facility] MEDICINE [address] [place] [address] Qouc Bermudez, PharmD [address] [place] [address] documented as of this encounter Goals Goal [...] documented as of this encounter Care Teams Automotive Electrician Helper Relationship Specialty Start Date End Date Yeni Willoughby MD [address] [place] [phone] PCP - General Family Medicine 02/27/18 Quoc Bermudez, PharmD [address] [place] [phone] Pharmacist Internal Medicine 02/14/22 [facility] 11/02/23 documented as of this encounter
--- OUTSIDE RECORDS SUMMARY | 2024-05-28 14:31 | XMS_ITS | Encounter Summary ---
Author Organization [employer] Address [address] [facility] 7t [place] [address] Care Team Providers Care Candle Making Supervisor Name Role Phone Yeni Willoughby MD Primary Care Provider [phone] Quoc Bermudez PharmD Unavailable [phone] Encounter Details Date Type Department Care Team ([facility] st Contact Info) Description 06/03/2022 Orders Only [facility] MEDICINE [address] [place] [address] Yeni Willoughby MD [address] [place] [address] Hypomagnesemia (Primary Dx); Lesion of parotid gland; [...] Description 08/20/2024 1:00 PM EDT Office Visit [facility] ADULT DENTAL [address] [place] [address] Crystal Melendrez [address] [place] [address] 09/27/2024 11:00 AM EDT Medication Management [facility] MEDICINE [address] [place] [address] Quoc Bermudez, Shannen [address] [place] [address] documented as of this encounter Goals Goal Patient Goal Type Associated Problems Recent Progress Patient-Stated? Author Blood Pressure < 140/90 Blood Pressure 129/100(2024 11:26 AM EST) No Quco Bermudez PharmD documented as of this encounter Visit Diagnoses Diagnosis Hypomagnesemia- Primary Disorders of magnesium metabolism Lesion of parotid gland Lymphadenopathy of left cervical region documented in this encounter Additional Health Concerns Assessment Noted Time PHQ-9 Depression Total Score: 3 06/02/19 23 11:01 AM EDT documented as of this encounter Care Teams Candle Making Supervisor Relationship Specialty Start Date End Date Yeni Willoughby MD [address] [place] [address] PCP - General Family Medicine 02/27/18 Quoc Bermudez, Shannen [address] [place] [address] Pharmacist Internal Medicine 02/14/22 [facility] 11/02/23 documented as of this encounter
--- OUTSIDE RECORDS SUMMARY | 2024-05-28 14:31 | XMS_ITS | Encounter Summary ---
Author Organization [employer] Address [address] [facility] 7t [place] [address] Care Team Providers Care Shotweld Operator Name Role Phone Yeni Willoughby MD Primary Care Provider Quoc Bermudez PharmD Unavailable [phone] Encounter Details Date Type Department Care Team ([facility] Contact Info) Description 06/21/2023 Orders Only [facility] MEDICINE [address] [place], [place] [phone] Yeni Willoughby MD [address] [place], [place] [phone] Social History Tobacco Use Types Packs/Day Years [...] Description 08/20/2024 1:00 PM EDT Office Visit [facility] ADULT DENTAL [address] [place] [address] Parvin, Crystal [address] [place] [address] 09/27/2024 11:00 AM EDT Medication Management [facility] MEDICINE [address] [place] [address] Quoc Bermudez PharmD [address] [place] [address] documented as of this encounter Goals Goal [...] documented as of this encounter Care Teams Shotweld Operator Relationship Specialty Start Date End Date Yeni Willoughby MD [address] [place] [address] PCP - General Family Medicine 02/27/18 Quoc Bermudez, PharmD [address] [place] [phone] Pharmacist Internal Medicine 02/14/22 [facility] 11/02/23 documented as of this encounter
--- OUTSIDE RECORDS SUMMARY | 2024-05-28 14:31 | XMS_ITS | Encounter Summary ---
Author Organization [employer] Address [address] [facility] 7 [place] [address] Care Team Providers Care Towel Sorter Name Role Phone Yeni Willoughby MD Primary Care Provider [phone] Quoc Bermudez PharmD Unavailable [phone] Reason for Referral * Medications - Closed Specialty Diagnoses / Procedures Referred By Contac t Referred To Contact Diagnoses Type 2 diabetes mellitus without complication, without long-term current use of insulin ([facility]) Yeni Willoughby MD [address] [place] [address] Phone: tel: fax: Referral ID Status Reason Start Date Expiration Date Visits Re quested Visits Authorized [id number] Closed 1 1 Encounter Details Date Type Department Care Team (Late st Contact Info) Description 10/18/2023 Orders Only [facility] MEDICINE [address] [place] [address] [phone] Yeni Willoughby MD [address] [place] [phone] Hypomagnesemia (Primary Dx); Dehydration; CHEMO (acute kidney [...] Description 08/20/2024 1:00 PM EDT Office Visit [facility] ADULT DENTAL [address] [place] [address] Crystal Melendrez [address] [place], [place] [phone] 09/27/2024 11:00 AM EDT Medication Management [facility] MEDICINE [address] [place] [address] Quoc Bermudez, PharmD [address] [place] [address] Scheduled Orders Name Type Priority Associated Diagnoses Orde r Schedule Basic Metabolic Panel Lab Routine Hypomagnesemia Dehydration CHEMO (acute kidney injury) ([facility]) Expected: 10/23/2023 (Approximate), Expires: 10/17/2024 Magnesium Lab Routine Hypomagnesemia Dehydration CHEMO (acute kidney injury) ([facility]) Expected: 10/23/2023 (Approximate), Expires: 10/17/2024 [...] magnesium metabolism Dehydration CHEMO (acute kidney injury) ([facility]) Type 2 diabetes mellitus without complication, without long-term current use of insulin ([facility]) documented in this encounter Additional Health Concerns Assessment Noted Time PHQ-9 Depression Total Score: 0 05/25/19 24 9:46 AM EDT documented as of this encounter Care Teams Towel Sorter Relationship Specialty Start Date End Date Yeni Willoughby MD [address] [place] [address] PCP - General Family Medicine 02/27/18 Quoc Bermudez, Shannen [address] [place] [address] Pharmacist Internal Medicine 02/14/22 [facility] documented as of this encounter
--- OUTSIDE RECORDS SUMMARY | 2024-05-28 14:31 | XMS_ITS | Clinical Summary ---
Author Organization [employer] Address [address] [facility] [address] [place] [address] Care Team Providers Care Pedicab Driver Name Role Phone Yeni Willoughby MD Primary Care Provider [phone] Quoc Bermudez PharmD Unavailable [phone] Allergies Active Allergy Reactions Criticality Noted Date [...] complication, without long-term current use of insulin ([facility]) TEST BLOOD SUGAR THREE TIMES DAILY 100 [...] hyperglycemia, without long-term current use of insulin ([facility]) TAKE 2 TABLETS BY MOUTH TWICE DAILY [...] complication, without long-term current use of insulin ([facility]) INJECT ONE PEN (=0.75MG) SUBCUTANEOUSLY ONCE A [...] (02/14/2024 6:23 AM EST): - following with [facility] - provisional Dx US in Mar 2023 showed coarse heterogenous echotexture - prescribed pancreatic enzyme by GI in the past, not taking currently Assessment & Plan (05/26/2023 12:19 PM EDT): - following with [facility] - provisional Dx US in Mar 2023 showed coarse heterogenous echotexture - trying pancreatic enzyme currently Pulmonary nodules 05/26/2023 Assessment & Plan (11/22/2023 10:08 AM EDT): - followed by [facility] lung cancer screening progam - CT in [...] (05/26/2023 12:23 PM EDT): - followed by [facility] lung cancer screening progam - last CT in August 2022, Lung RADS 2, Multiple 1 mm calcified small granulomas in both lungs. 4 mm pulmonary nodules are stable. No new nodules seen. - continue annual CT scan - continue working on smoking cessation Metabolic dysfunction-associ ated steatotic liver disease (MASLD) 08/28/2022 Assessment & Plan (04/23/2024 11:18 AM EST): - following with [facility] - hx reactive Hep C antibody, negative in 2020 and 2021 - most recent US on 05/08/23 mildly increased echogenicity of liver. - fibrosis stage F0 - FIB4 index 0.96 - continue working on lifestyle modifications Assessment & Plan (02/13/2024 9:27 AM EST): - following with [facility] - hx reactive Hep C antibody, negative in 2020 and 2021 - most recent US on 05/08/23 mildly increased echogenicity of liver. - fibrosis stage F0 - FIB4 index 0.96 - continue working on lifestyle modifications Assessment & Plan (11/22/2023 9:31 AM EDT): - following with [facility] - hx reactive Hep C antibody, negative in 2020 and 2021 - most recent US on 05/08/23 mildly increased echogenicity of liver. - fibrosis stage F0 - FIB4 index 0.96 - continue working on lifestyle modifications Assessment & Plan (08/16/2023 12:34 PM EDT): - following with [facility] - hx reactive Hep C antibody, negative in 2020 and 2021 - most recent US on 05/08/23 mildly increased echogenicity of liver. 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 Hx Graves ophthalmopathy. PVD. Seen by [facility] on 01/03/24 - Last comprehensive [...] retinopathy. Hx Graves ophthalmopathy. PVD. Seen by [facility] on 01/03/24 - Last comprehensive [...] in 2009 - Started seeing a new metrology engineer, Dr. Mccracken, initial visit on 02/08/24. - [...] in 2009 - Started seeing a new metrology engineer, Dr. Mccracken, initial visit on 02/08/24. - [...] - Pt was referred to a new metrology engineer and was seen on 02/21/19. - Because she is euthyroid, she was discharged Assessment & Plan (11/22/2023 9:58 AM EDT): - History of Graves' disease - Radioactive iodine ablation in 2009 - Medications: Levothyroxine 125 mcg daily. - last TSH 0.06 on 09/22/23 - Check lab and adjust medication accordingly - Previously seeing metrology engineer at [facility], then [facility], and was discharged due to her stability and no concern for thyroid cancer. - Of note, patient is on GLP-1 RA Assessment & Plan (08/16/2023 12:39 PM EDT): - History of Graves' disease - Radioactive iodine ablation in 2009 - Medications: Levothyroxine 125 mcg daily. - last TSH 0.05 on 06/21/23 - Check lab and adjust medication accordingly - Previously seeing metrology engineer at [facility], then [facility], and was discharged due to her stability [...] - Continue current replacement - Previously seeing metrology engineer at [facility], then [facility], and was discharged due to her stability and no concern for thyroid cancer. >>ASSESSMENT AND PLAN FOR HYPOTHYROIDISM WRITTEN ON 05/25/2023 5:52 AM BY YENI WILLOUGHBY MD - History of Graves' disease - Radioactive iodine ablation in 2009 - Medications: Levothyroxine 137 mcg daily. - last TSH 0.43 on 06/01/22 - Continue current replacement - Pt was referred to a new metrology engineer and was seen on 02/21/19. - Because she is euthyroid, she was discharged Assessment & Plan (08/28/2022 11:01 AM EDT): - Medications: Levothyroxine 137 mcg daily. - last TSH 0.43 on 06/01/22 - Continue current replacement - Pt was referred to a new metrology engineer and was seen on 02/21/19. - Because she is euthyroid, she was discharged. Assessment & Plan (06/13/2022 12:48 PM EDT): - Medications: Levothyroxine 137 mcg daily. - last TSH 3.11 on 07/16/20 - Continue current replacement - Pt was referred to a new metrology engineer and was seen on 02/21/19. - Because [...] - following with sleep medicine clinic at [facility], last seen in May 2023 - home sleep study on 12/15/22, auto PAP 5-20 cm H2O was recommended - recent compliance report shows 100% adherence - continue AutoPAP Assessment & Plan (11/22/2023 9:31 AM EDT): - following with sleep medicine clinic at [facility], last seen in May 2023 - home sleep study on 12/15/22, auto PAP 5-20 cm H2O was recommended - recent compliance report shows 100% adherence - continue AutoPAP Assessment & Plan (08/16/2023 12:31 PM EDT): - following with sleep medicine clinic at [facility], last seen in May 2023 - home sleep study on 12/15/22, auto PAP 5-20 cm H2O was recommended - recent compliance report shows 100% adherence - continue AutoPAP Assessment & Plan (05/26/2023 11:42 AM EDT): - following with sleep medicine clinic at [facility] - home sleep study on 12/15/22, auto [...] DEPARTMENT Provider, Generic External Data 05/19/2024 Refill [facility] MED & PEDS [address] [place] [address] Yeni Willoughby MD 05/11/2024 Refill [facility] MEDICINE [address] [place], [place] [phone] Yuridia Kendall MD 05/11/2024 Refill [facility] MEDICINE [address] [place] [address] Heidy Garza ANP Gastroesophageal reflux disease, unspecified whether esophagitis present 04/23/2024 11:15 AM EST Office Visit [facility] MEDICINE [address] [place] [phone] Yeni Willoughby MD Type 2 diabetes mellitus [...] Dyspnea, unspecified type 04/23/2024 Travel 04/17/2024 Telephone [facility] MEDICINE [address] [place] [phone] Yeni Willoughby MD Chart Prep 04/10/2024 Refill [facility] MED & PEDS [address] [place], [place] [phone] Yeni Willoughby MD Controlled type 2 diabetes mellitus without complication, without long-term current use of insulin (CMS/HCC) 04/05/2024 Travel 03/27/2024 Telephone [facility] MED[facility]INE [address] [place] [phone] Quoc Bermudez, PharmD 03/20/2024 Refill [facility] MED & PEDS [address] [place], [place] [phone] Yeni Willoughby MD 03/19/2024 Orders Only GENERIC EXTERNAL DATA DEPARTMENT Provider, Generic External Data 03/17/2024 Refill [facility] MED[facility]INE [address] [place] [address] [phone] Yeni Willoughby MD Controlled type 2 diabetes mellitus with hyperglycemia, without long-term current use of insulin (CMS/HCC) 03/04/2024 Telephone [facility] [address] [place] [phone] Yeni Willoughby MD callback reqested 03/01/2024 Orders Only [facility] MED[facility] [address] [place] [address] Yeni Willoughby MD Primary hypertension (Primary Dx); Type 2 diabetes mellitus without complication, without long-term current use of insulin ([facility]/HCC); Asthma-COPD overlap syndrome ([facility]); Tobacco use from Last 3 Months Immunizations [...] Description 08/20/2024 1:00 PM EDT Office Visit [facility] ADULT DENTAL [address] [place] [address] Maycol Melendrezaris [address] [place] [address] 09/27/2024 11:00 AM EDT Medication Management [facility] [address] [place] [address] Quoc Bermudez, PharmD [address] [place] [address] Health Maintenance Due Date Last Done Comments [...] 05/26/2023, Additional history exists Lipid Panel 05/20/2025 05/28/2024, 04/28, 05/25/2023, Additional history exists Cervical Cancer Screening 06/22/2025 [...] Procedure Name Priority Date/Time Associated Diagnosis Comments LIPID PANEL WITH REFLEX TO DIRECT LDL Routine 05/28/2024 12:13 PM EDT Dyslipidemia T3, TOTAL Routine 05/20/2024 10:00 AM EDT [...] 10:00 AM EDT) Triglycerides 162(H) <150 mg/dL [facility] Comment:Desirable Triglyceri de: less than 150 mg/dLBorderline High Triglyceride 150-199 mg/dLHigh Triglyceride: 200-499 mg/dLVery High Triglyceride: greater than or equal to 5OO mg/dL Cholesterol 98 <200 mg/dL [facility] Comment:Desirable Cholestero l: less than 200 mg/dLBorderline High Cholesterol: 200-239 mg/dLHigh Cholesterol: greater than 239 mg/dL LDL Cholesterol Calculated 28 <100 mg/dL [facility] Comment:Desirable LDL: less than 100 mg/dLNear Optimal/Above Optimal LDL: 110- 129 mg/dLBorderline High LDL: 130-159 mg/dLHigh LDL: 160-189 mg/dLVery High LDL: greater than or equal to 190 mg/dL HDL Cholesterol 38(L) >40 mg/dL [facility] Comment:Desirable HDL: great er than 40 mg/dL Note: This HDL assay may give artificially low results in patients with liver disease. Blood 05/20/2024 10:0 0 AM EDT 05/20/2024 10:00 AM EDT us Yeni Willoughby MD LAB BLOOD ORDERABLES Final Resul t Performing Organization Address City/[facility]/ZIP Co de Phone Number [facility] [address] [place] [phone] * (ABNORMAL) T3, Total (05/20/2024 10:00 AM EDT) Only the most recent of2 resultswithin the time period is included. Pathologist [facility] T3, Total 63(A) 76 - 181 ng/dL [facility] Comment:THIS TEST WAS PERFOR MED AT:[address] [place] [phone] GANDHI MD 05/20/2024 10:0 0 AM EDT 05/20/2024 10:00 AM EDT us Generic External Data Provider LAB BLOOD ORDERAB LES Final Result Performing Organization Address [facility] Co de Phone Number [facility] [address] [place] [address] [phone] * (ABNORMAL) TSH (05/20/2024 10:00 AM EDT) Only the most recent of2 resultswithin the time period is included. Pathologist [facility] Thyroid Stimulating Hormone 4.96(H) 0.32 - 4.0 uIU/mL [facility] Comment:Note: A sustained TS H level above 2.5 uIU/mL may warrant further investigation. TSH 3rd Generation ([facility]) 05/20/2024 10:0 0 AM EDT 05/20/2024 10:00 AM EDT Generic External Data Provider LAB BLOOD ORDERAB LES Final Result Performing Organization Address City/[facility] Co de Phone Number [facility] [address] [place] [phone] * T4, Free (05/20/2024 10:00 AM EDT) Only the most recent of2 resultswithin the time period is included. Free T4 (Free Thyroxine) 1.14 0.71 - 1.85 ng/dL [facility] 05/20/2024 10:0 0 AM EDT 05/20/2024 10:00 AM EDT Generic External Data Provider LAB BLOOD ORDERAB LES Final Result Performing Organization Address [facility] de Phone Number [facility] [address] [place] [phone] * (ABNORMAL) Comprehensive Metabolic Panel (05/20/2024 10:00 AM EDT) Sodium 141 135 - 145 mmol/L [facility] Potassium 4.8 3.3 - 5.1 mmol/L [facility] Chloride 106 96 - 108 mmol/L [facility] Carbon Dioxide 26 22 - 29 mmol/L [facility] Anion Gap 14 12 - 20 [facility] Urea Nitrogen (BUN) 26(H) 9 - 16 mg/dL [facility] Creatinine, Serum 1.15 0.5 - 1.4 mg/dL [facility] Estimated Glomerular Filt Rate 48 [facility] Comment:Chronic Kidney Disea se: Estimated GFR < 60 mL/min/1.75x2Bruwvn Kidney Disease: Estimated GFR < 15 mL/min/1.73m2 Glucose 88 60 - 115 mg/dL [facility] Calcium 10.0 8.4 - 10.2 mg/dL [facility] Bilirubin, Total 0.9 0.0 - 1.0 mg/dL [facility] Aspartate Amino Transferase 23 5 - 31 U/L [facility] Alanine Aminotransferase 18 0 - 31 U/L [facility] Total Protein 8.3(H) 6.5 - 8.0 g/dL [facility] Albumin Level 4.2 3.5 - 5.0 g/dL [facility] Alkaline Phosphatase 85 39 - 117 U/L [facility] Blood Venous blood specimen / Unknown 05/20/2024 10:00 AM EDT 05/20/2024 10:00 AM EDT us Yeni Willoughby MD LAB BLOOD ORDERABLES Final Resul t Performing Organization Address City/[facility]/ZIP Co de Phone Number [facility] [address] [place] [phone] * Albumin, Random Urine W/Creatinine (05/20/2024 9:56 AM EDT) Creatinine, Urine 141.41 mg/dL [facility] Microalbumin Urine 19.0 mg/L [facility] Microalbum Creatinine Ratio Ur 13.4 <30 ug/mg cr [facility] Comment:Albumin/Creatinine R atio Reference Ranges: Normal: < 30 ug/mg creatinine Microalbuminuria: 30 - 300 ug/mg creatinineClinical Albuminuria: > 300 ug/mg creatinine Urine 05/20/2024 9:56 AM EDT 05/20/2024 10:56 AM EDT us Yeni Willoughby MD LAB URINE ORDERABLES Final Resul t Performing Organization Address City/[facility]/ZIP Co de Phone Number [facility] [address] [place] [phone] * CT Sinus w/o Contrast (05/20/2024 9:42 AM EDT) Anatomical Region Laterality Modality Computed Tomogra phy 05/20/2024 9:4 2 AM EDT Narrative 05/20/2024 3:02 PM EDT ? [facility] ?[address] ?[place] [address] ? CT Scan Report ? Signed ? Patient: Barth,Jennifer I ?MR#: [id number] ? : 1965 ?Acct:[id number] ? Age/Sex: 59 / F ?ADM Date: 05/20/24 ? Loc: HO.CT ? Attending Dr: Yeni Willoughby MD ? Ordering Physician: Yeni Willoughby MD ?? Date of Service: 05/20/24 ?? Procedure(s): CT sinus wo IV con ?? Accession Number(s): [id number] ? cc: Yeni Willoughby MD ? Report Number: ?? [id number]: Total DLP = ?? 81.00 mGy-cm ?? [...] DD/ 0942 ? TD/TT: 05/20/24 1021 ? Greenhouse Laborer: ? Procedure Note Suraj, Image - 05/20/[address] [place] [address] [address] Scan Report Signed Patient: Jennifer Barth IMR#: [id number] : 1965Acct:[id number] Age/Sex: 59 / FADM Date: 05/20/24 Loc: HO.CT Attending Dr: Yeni Willoughby MD Ordering Physician: Yeni Willoughby MD Date of Service: 05/20/24 Procedure(s): CT sinus wo IV con Accession Number(s): [id number] cc: Yeni Willoughby MD Report Number: [id number]: Total DLP = 81.00 mGy-cm EXAMINATION: CT [...] 05/20/24 1500 DD/ 0942 TD/TT: 05/20/24 1021 Greenhouse Laborer: us Yeni Willoughby MD IMG CT PROCEDURES [...] glucose manually resulted (04/23/2024 11:27 AM EST) Glucose Blood, POC 146 60 - 200 mg/dL QC Media Lot # [id number] Lot# Expiration Date [id number] Blood Capillary blood specimen / Unknown 04/23/2024 11:27 AM EST Yeni Willoughby MD POINT OF CARE TEST ENTER/EDIT OR DERABLES Final Result * Hepatitis C Antibody with Reflex to HCV, RNA, Quantitative, Real-Time PCR (02/13/2024 10:03 AM EST) Pathologist [facility] Hepatitis C Antibody Nonreactive Nonreactive [facility] Comment:Antibodies to HCV no t detected; does not exclude early acuteHCV infection. Blood Venous blood specimen / Unknown 02/13/2024 10:03 AM EST 02/13/2024 11:03 AM EST Yeni Willoughby MD LAB BLOOD ORDERABLES Final Resul t [facility] [address] [place] [address] [phone] * HIV-1/2 Antigen and Antibodies, Fourth Generation, with Reflexes (04/12/2023 4:03 PM EST) HIV AB/AG Nonreactive Nonreactive [facility] Comment:HIV-1 p24 Ag and/or HIV-1/HIV-2 Ab not detected.A test result that is nonreactive does not exclude thepossibility of exposure to or infection with HIV-1 and/orHIV-2. Nonreactive results in this assay for individualswith prior exposure to HIV-1 and/or HIV-2 may be due toantigen and antibody levels that are below the limit ofdetection of this assay.The [employer] HIV Ag/Ab Combo assay result andsupplemental assay results should be interpreted inconjunction with the patient's clinical presentation,history and other laboratory results. If the results areinconsistent with clinical evidence, additional testing issuggested to confirm the result. 04/12/2023 4:03 PM EST 04/12/2023 4:03 PM EST us Generic External Data Provider LAB BLOOD ORDERAB LES Final Result [facility] [address] [place] [address] [phone] * BI Mammogram Screening Tomosynthesis Bilateral (11/22/2022 10:15 AM EDT) Anatomical Region Laterality Modality Breast Bilateral Mammography 11/22/2022 10:1 5 AM EDT Narrative 12/14/2022 9:30 PM EDT ? [facility] ? [address] ?[place] [id number] ? Mammography Report ? Signed ? Patient: Barth,Jennifer I ?MR#: [id number] ? : 1965 ?Acct:[id number] ? Age/Sex: 57 / F ?ADM Date: 11/22/ ? Loc: HO.MAMMO ? Attending Dr: Yeni Willoughby MD ? Ordering Physician: Yeni Willoughby MD ?Results: 2Benign F ?? indings ? Date of Service: 11/22/ ?Follow Up: 1 Year From Orig ?? inal Mammogram ? Procedure(s): MM tomosynthesis screening BI ?? Accession Number(s): [id number] ? cc: Yeni Willoughby MD ? EXAMINATION: [...] 12/14/226 ? DD/ 1015 ? TD/TT: ? Greenhouse Laborer: ? Procedure Note Suraj, Image - 12/14/2022 [facility] [address] [place] [address] Dr. [place], [place] [address] Mammography Report Signed Patient: Jennifer Barth IMR#: [id number] : 1965Acct:[id number] Age/Sex: 57 / FADM Date: 11/22/22 Loc: [facility] Attending Dr: Yeni Willoughby MD Ordering Physician: Yeni Willoughby MDResults: 2Benign F indings Date of Service: 11/22/22Follow Up: 1 Year From [facility] Mammogram Procedure(s): MM tomosynthesis screening BI Accession Number(s): [id number] cc: Yeni Willoughby MD EXAMINATION: MM SCREENING [...] signed by Debi Funk MD in OV> 12/14/226 DD/ 1015 TD/TT: Greenhouse Laborer: Yeni Willoughby MD [facility] BI PROCEDURES Edited Result - Final * THINPREP PAP (06/22/2020 6:38 AM EDT) Clinical Information: None given [facility] COMMENT SEE COMMENT [facility] [...] historic and ?? current clinical information. ?? Data Input Clerk : SEE COMMENT [facility] Comment: DMM, CT(ASCP) CT screening location: [address] ??[phone] Interpretation/R esult: Negative for intraepithelial lesion or malignancy. [facility] LMP: NONE GIVEN [facility] Prev. BX: NONE GIVEN [facility] Prev. PAP: NONE GIVEN [facility] SOURCE: None given [facility] Statement Of Adequacy: SEE COMMENT [facility] Comment: Satisfactory for evaluation. Endocervical/transformation zone component present. Age and/or menstrual status not provided 06/22/2020 6:38 AM EDT Yeni Willoughby MD LAB PATHOLOGY ORDERABLES Final R esult Performing Organization Address [facility] de Phone Number [facility] [address] * HPV mRNA E6/E7 (06/22/2020 6:38 AM EDT) HPV nRNA E6/E7 Not Detected Not Detected [facility] Comment: Methodology: Senior Health Educator-Mediated Amplification This assay detects E6/E7 viral messenger RNA (mRNA) from 14 high-risk HPV types (16,18,31,33,35,39,45,51,52,56,58,59,66,68). ? The analytical performance characteristics of this assay have been determined by [employer]. The modifications have not been cleared or approved by the FDA. This assay has been validated pursuant to the CLIA regulations and is used for clinical purposes. ?? For additional information, please refer to http://education.[employer].Privlo/faq/DPD733f0 (This link if provided for information/ educational purposes only.) 06/22/2020 6:38 AM EDT Yeni Willoughby MD LAB BLOOD ORDERABLES Final Resul t Performing Organization Address [facility] de Phone Number [facility] [address] from Last 3 Months or Most Recently Relevant to Health Maintenance Insurance [facility] Care Teams Pedicab Driver Relationship Specialty Start Date End Date Yeni Willoughby MD [address] [place] [address] PCP - General Family Medicine 02/27/18 Quoc Bermudez, PharmD [address] [place] [phone] Pharmacist Internal Medicine 02/14/22 [facility] 11/02/23
[2024-05-28 20:20] LABS: Reflex LDLD? No
== END 2024-05-28 12:12 | disposition home or self-care (01) ==
LOC: HO.HHCL 12:11
PROVIDERS: Visit Provider Family Medicine
DX: E78.5 Hyperlipidemia, unspecified (principal); E83.42 Hypomagnesemia; E83.51 Hypocalcemia; N18.31 Chronic kidney disease, stage 3a
CPT/HCPCS: 36415; 80061; 99212

== ENCOUNTER 2024-06-21 11:11 | Outpatient (AMB) | payer OTHER, SELFPAY ==
[2024-06-21 11:17] VITALS: BP 122/78; PULSE 97; BMI 26.3
--- NOTE | 2024-06-21 11:17 | MHC.OFFVIS ---
Vital Signs 06/21/24 11:17 Height 5 ft 4 in Weight 153 lb 0.013 oz BMI 26.3 BP 122/78 Blood Pressure Location Lt brachial Position Sitting Pulse 97 Intake Visit Reasons: 8 Month f/u for IBS Intake Note: Jennifer presents to in office visit today in follow up of IBS. CC: Patient reports feeling very tired and gas pain mostly at night. Zyglo Inspector Required: Yes Accompanied by: Self / Same As Patient Allergies sulfamethoxazole [From Bactrim] Allergy (Severe, Verified 06/21/24 11:28) Itching trimethoprim [From Bactrim] Allergy (Severe, Verified 06/21/24 11:28) Itching codeine [Codeine] Allergy (Intermediate, Verified 06/21/24 11:28) NAUSEA & VOMITING, vomiting fluoxetine [FLUOXETINE] Allergy (Intermediate, Verified 06/21/24 11:28) NAUSEA & VOMITING ibuprofen [IBUPROFEN] Allergy (Intermediate, Verified 06/21/24 11:28) NAUSEA & VOMITING Sulfa (Sulfonamide Antibiotics) Allergy (Mild, Verified 06/21/24 11:28) itching HPI HPI 8 Month f/u for IBS: Details: Assessment & Plan (1) Irritable bowel syndrome with both constipation and diarrhea: Code(s): K58.2 - Mixed irritable bowel syndrome Category: Medical (2) Pancreatic atrophy: Code(s): K86.89 - Other specified diseases of pancreas Category: Medical (3) Exocrine pancreatic insufficiency: Code(s): K86.81 - Exocrine pancreatic insufficiency Category: Medical (4) Cystocele with prolapse: Code(s): N81.4 - Uterovaginal prolapse, unspecified Category: Medical (5) Diastasis of rectus abdominis: Code(s): M62.08 - Separation of muscle (nontraumatic), other site Category: Medical Plan [place] #Renate Live She is taking the fiber and the probiotic, she thinks - unsure about probitic. She had more bloating with the creon and stopped it. she still sees white balls in her stools, with, I think, is mucus - she says they look like eggs. But she also say she sees green stools like grapes, but sometimes they are yellow. She tends to see this when her looser. This leans towards the dx of mucus. she has had negative O&P when she had similar complaints. Stop Creon, will going to increase her fiber to multiple times a day and put her on omeprazole twice a day. With this she feels she is agreeable to a 6 month follow-up and will call me if she needs me sooner. Medications: New omeprazole 20 mg PO BID 60 caps 6RF Changed From psyllium husk 0.4 grams PO BID 60 caps 6RF K58.2 - Mixed irritable bowel syndrome To psyllium husk (Daily Fiber) 0.4 grams PO BID 60 caps 6RF K58.2 - Mixed irritable bowel syndrome LABS: Laboratory Tests 05/20/24 10:00 Total Bilirubin 0.9 AST 23 ALT 18 Alkaline Phosphatase 85 TSH 4.96 H Free T4 1.14 Total T3 63 L TODAY'S VISIT Taj[place] #[id number] She says she has been staying home a lot because she does not have transportation. She is doing better after stopping the creon and increasing the fiber. She will get CIC if she eats plantains-green, but she likes them!! IF this happens she eats more fruit. She is satisfied with this plan. SHe will get bloated if she eats after 5 pm or heavy things, so she controls this by eating earlier and radiographer cardiac catheterization fare. She is due for a colonoscopy as her last was in [address] Arzate and was negative. Her [place] and COPD are well controlled and she denies any cardiac problems. There are no prior problems with anesthesia and sedation. NO ID problems There are no 1st degree relatives with CRC or polyps. ROV 6 mos. REPLACED BY [facility] Medical History (Updated 06/21/24 @ 11:49 by JOSE Pike) KY (obstructive sleep apnea) KY on CPAP Graves' eye disease Transaminitis History of Graves' disease Pilonidal cyst Substance abuse Nicotine dependence, cigarettes, uncomplicated History of abnormal mammogram Hidradenitis suppurativa Hyperlipidemia Hypertension Surgical History Hx of cataract surgery History of colonoscopy (~2013) History of bunionectomy (~2011) History of axillary surgery (~2013) History of cholecystectomy History of umbilical hernia repair (~2016) Family History Paternal Aunt Breast cancer Mother Cancer of mandible Other [place] (obstructive sleep apnea) Social History Household Members: Children Housing: Apartment Do you presently have visiting nurse or other home services: No Alcohol intake: current Alcohol intake frequency: does not drink Patient Tobacco Use Status: Current everyday Tobacco user Tobacco use type: Cigarette Cigarette Packs Per Day: 0.75 Cigarettes Per Day: 15 Years Smoked: 36 (onset age 19) Substance Use Type: Crack/Cocaine service: No Current occupational status: unemployed Female Reproductive History Menstrual Age of Menarche: 9 Review of Systems Const Denies fatigue, Denies fever(s), Denies night sweats, Denies poor appetite and Denies weight loss ENT Reports Normal hearing present, Denies dental pain, Denies dysphagia, Denies hearing loss, Denies mouth pain, Denies odynophagia, Denies throat swelling, Denies tongue swelling and Reports other (Dentition adequate) Card Reports no additional complaints Resp Reports no additional complaints GI Details: Denies abdominal pain, Denies melena, Denies bloating, Denies hematochezia, Reports constipation, Denies GI cramping, Denies dysphagia, Denies excessive flatus, Denies early satiety, Denies heartburn, Denies diarrhea, Denies nausea, Denies odynophagia, Denies vomiting and Denies hematemesis Skin/Breast Denies pruritus, Denies lesions, Denies rash and Denies jaundice Neuro Reports Normal hearing present and Denies Abnormal speech present Endo Denies fatigue Aller/Immun Denies throat swelling and Denies tongue swelling Physical Exam Vital Signs: Last Vital Signs Pulse 97 06/21/24 11:17 BP 122/78 06/21/24 11:17 BMI result Body Mass Index 26.3 Const General: cooperative, no acute distress, well developed and well groomed Nutritional Appearance: average body habitus and well nourished Orientation/consciousness: oriented to person, oriented to place and oriented to time Limitations: language barrier HEENT Head: Yes normocephalic and Yes atraumatic Eyes Other: exopthalmus General: appearance normal, both eyes and all related structures Pupils: Equal, round and reactive pupils present Neck Neck: Yes normal visual inspection and Yes no lymphadenopathy Thyroid: Thyroid normal Resp Effort & Inspection: normal respiratory effort and able to speak in complete sentences Auscultation: clear to auscultation bilaterally Cardio Rate: regular rate Rhythm: regular rhythm Heart sounds: Normal, physiologic split S2 sound present Peripheral pulses: radial pulses present and posterior tibial pulses present GI Inspection: No distended and No Abdominal panniculus present Palpation (GI): Soft to palpation, nontender, no guarding, not rigid and No hepatosplenomegaly present Percussion: Yes normal to percussion Auscultation: normal bowel sounds Rectal Exam - Female: deferred Skin General skin exam: no rashes or lesions noted, turgor normal, skin not dry, no jaundice, No spider nevi and no striae Rashes: no rashes Nails: normal Neuro General: oriented to person, oriented to place and oriented to time Cranial nerves: Yes Equal, round and reactive pupils present and Yes Normal hearing present Speech: No Abnormal speech present Extrem General: Yes normal to inspection, No clubbing, No cyanosis and No edema Psych Appearance: grossly normal and well kempt Mental Status: mental status grossly normal Speech and movement: Normal speech and movement present Affect: normal affect Attitude: cooperative Thought process: Normal thought process present and not confabulating Thought content: Normal thought content present Insight: Limited insight present (Psych) Judgement: Limited judgement present (Psych) Assessment & Plan Assessment & Plan (1) Irritable bowel syndrome with both constipation and diarrhea: Code(s): K58.2 - Mixed irritable bowel syndrome Category: Medical (2) Exocrine pancreatic insufficiency: Code(s): K86.81 - Exocrine pancreatic insufficiency Category: Medical (3) Pre-op examination: Code(s): Z01.818 - Encounter for other preprocedural examination Category: Medical (4) KY (obstructive sleep apnea): Comment: (On CPAP for Severe KY, 52 obstructive apneas on 11/17/09 sleep test) Code(s): G47.33 - Obstructive sleep apnea (adult) (pediatric) Category: Medical (5) COPD (chronic obstructive pulmonary disease): Code(s): J44.9 - Chronic obstructive pulmonary disease, unspecified Category: Medical Plan [place] #[id number] She says she has been staying home a lot because she does not have transportation. She is doing better after stopping the creon and increasing the fiber. She will get CIC if she eats plantains-green, but she likes them!! IF this happens she eats more fruit. She is satisfied with this plan. SHe will get bloated if she eats after 5 pm or heavy things, so she controls this by eating earlier and radiographer cardiac catheterization fare. She is due for a colonoscopy as her last was in [address] Arzate and was negative. Her KY and COPD are well controlled and she denies any cardiac problems. There are no prior problems with anesthesia and sedation. NO ID problems There are no 1st degree relatives with CRC or polyps. ROV 6 mos. Orders: Orders Colonoscopy - GI Use Only Today Z01.81 - Encounter for other preprocedural examination Medications: New hydrocortisone 2.5% (Proctosol HC) 1 appl CO BID PRN 30 grams 0RF hemorrhoids peg 3350-electrolytes 236-22.74-6.74 -5.86 gram (Golytely) until fecal effluent is clear; do not exceed a total volume of 2,000 mL 240 mL PO Q10M 4,000 mL 0RF 1 day Z12.11 - Encounter for screening for malignant neoplasm of colon bisacodyl (Dulcolax (bisacodyl)) 10 mg (2 x 5 mg) PO BEDTIME 4 tabs 0RF 2 days Refilled psyllium husk (Reguloid (psyllium husk)) 0.4 grams PO BID 60 caps 6RF K58.2 - Mixed irritable bowel syndrome omeprazole 20 mg PO BID 60 caps 6RF Coding Level of Care Code Est Pt Level 3 (58345) Diagnoses Irritable bowel syndrome with both constipation and diarrhea K58.2 Exocrine pancreatic insufficiency K86.81 Pre-op examination Z.8 [place] (obstructive sleep apnea) G47.33 COPD (chronic obstructive pulmonary disease) J44.9
--- OUTSIDE RECORDS SUMMARY | 2024-06-21 12:02 | XMS_ITS | Encounter Summary ---
Author Organization [employer] Address [address] [facility] 7t [place] [address] Care Team Providers Care Court Of Appeals Judge Name Role Phone Yeni Willoughby MD Primary Care Provider [phone] Quoc Bermudez PharmD Unavailable [phone] Reason for Visit * Reason Comments Med Refill Encounter Details Date Type Department Care Team ([facility] st Contact Info) Description 06/05/2024 Refill [facility] MEDICINE [address] [place], [place] [phone] Yeni Willoughby MD [address] [place], [place] [phone] Chronic low back pain, unspecified back pain laterality, unspecified whether sciatica present Social History Tobacco Use Types Packs/Day Years [...] Care Team (Late st Contact Info) Description 07/16/2024 11:15 AM EDT Office Visit [facility] MEDICINE [address] [place] [address] Yeni Willoughby MD [address] [place] [address] 08/20/2024 1:00 PM EDT Office Visit [facility] ADULT DENTAL [address] [place] [address] Crystal Melendrez [address] [place] [address] 09/27/2024 11:00 AM EDT Medication Management [facility] MEDICINE [address] [place] [address] Quoc Bermudez, PharmD [address] [place] [address] 10/02/2024 11:00 AM EDT Office Visit [facility] OPTOMETRY [address] [place] [address] Estefania Pace, JACQUELINE [address] [place] [address] documented as of this encounter Goals Goal Patient Goal Type Associated Problems Recent Progress Patient-Stated? Author Blood Pressure < 140/90 Blood Pressure 129/100(04/23 11:26 AM EST) No Quoc Bermudez PharmD Hemoglobin A1c < 7 Result Component 6(04/23/2024 11:27 AM EST) No Quoc Bermudez PharmD documented as of this encounter Visit Diagnoses Diagnosis Chronic low back pain, unspecified back pain laterality, unspecified whether sciatica present documented in this encounter Additional Health Concerns Assessment Noted Time PHQ-9 Depression Total Score: 0 05/25/19 9:46 AM EDT documented as of this encounter Care Teams Court Of Appeals Judge Relationship Specialty Start Date End Date Yeni Willoughby MD [address] [place] [address] PCP - General Family Medicine 02/27/18 Quoc Bermudez PharmD [address] [place] [address] Pharmacist Internal Medicine 02/14/22 [facility] 11/02/23 documented as of this encounter
--- OUTSIDE RECORDS SUMMARY | 2024-06-21 12:02 | XMS_ITS | Encounter Summary ---
Author Organization [employer] Address [address] [facility] 7t [place] [address] Care Team Providers Care Exhaust And Muffler Repairer Name Role Phone Yeni Willoughby MD Primary Care Provider [phone] Quoc Bermudez PharmD Unavailable [phone] Encounter Details Date Type Department Care Team ([facility] Contact Info) Description 02/07/2024 Orders Only [facility] MEDICINE [address] [place], [place] [phone] Yeni Willoughby MD [address] [place], [place] [phone] Social History Tobacco Use Types Packs/Day Years [...] Description 07/16/2024 11:15 AM EDT Office Visit [facility] MEDICINE [address] [place] [address] Yeni Willoughby MD [address] [place] [address] 08/20/2024 1:00 PM EDT Office Visit [facility] ADULT DENTAL [address] [place] [address] Parvin, Crystal [address] [place] [address] 09/27/2024 11:00 AM EDT Medication Management [facility] MEDICINE [address] [place] [address] Quoc Bermudez, PharmD [address] [place] [address] 10/02/2024 11:00 AM EDT Office Visit [facility] OPTOMETRY [address] [place] [address] Estefania Pace, OD [address] [place] [address] documented as of this encounter Goals Goal [...] documented as of this encounter Care Teams Exhaust And Muffler Repairer Relationship Specialty Start Date End Date Yeni Willoughby MD [address] [place] [address] PCP - General Family Medicine 02/27/18 Quoc Bermudez PharmD [address] [place] [address] Pharmacist Internal Medicine 02/14/22 [facility] 11/02/23 documented as of this encounter
--- OUTSIDE RECORDS SUMMARY | 2024-06-21 12:02 | XMS_ITS | Encounter Summary ---
Author Organization [employer] Address [address] [place] [address] 7 [place] [address] Care Team Providers Care Solar Manufacturer'S Representative Name Role Phone Yeni Willoughby MD Primary Care Provider Quoc Bermudez PharmD Unavailable [phone] Reason for Referral * Consultation (Routine) - Closed Specialty Diagnoses / Procedures Referred By Contac t Referred To Contact Allergy Diagnoses Pruritic rash Yeni Willoughby MD [address] [place] [address] Phone: tel: fax: Saúl Suarez MD [address] [place] [address] Drive [address] [place] [address] Phone: tel: fax: Referral ID Status Reason Start Date Expiration Date V isits Requested Visits Authorized [id number] Closed Specialty Services Required 01/09/2024 01/08/2025 1 1 Encounter Details Date Type Department Care Team (Late st Contact Info) Description 01/09/2024 Orders Only [facility] MEDICINE [address] [place], [place] [phone] Yeni Willoughby MD [address] [place], [place] [phone] Pruritic rash (Primary Dx) Social History Tobacco [...] Description 07/16/2024 11:15 AM EDT Office Visit [facility] MEDICINE [address] [place] [address] Yeni Willoughby MD [address] [place] [address] 08/20/2024 1:00 PM EDT Office Visit [facility] ADULT DENTAL [address] [place] [address] Parvin, Crystal [address] [place] [address] 09/27/2024 11:00 AM EDT Medication Management [facility] MEDICINE [address] [place] [address] Quoc Bermudez PharmD [address] [place] [address] 10/02/2024 11:00 AM EDT Office Visit [facility] OPTOMETRY [address] [place] [address] Sanjeev, Estefania, OD [address] [place] [address] Scheduled Referrals Name Type Priority Associated Diagnoses [...] documented as of this encounter Care Teams Solar Manufacturer'S Representative Relationship Specialty Start Date End Date Yeni Willoughby MD [address] [place] [phone] PCP - General Family Medicine 02/27/18 Quoc Bermudez PharmD [address] [place] [address] Pharmacist Internal Medicine 02/14/22 [facility] 11/02/23 documented as of this encounter
--- OUTSIDE RECORDS SUMMARY | 2024-06-21 12:02 | XMS_ITS | Encounter Summary ---
Author Organization [employer] Address [address] [facility] 7t [place] [address] Care Team Providers Care Parts Washer Name Role Phone Yeni Willoughby MD Primary Care Provider [phone] Quoc Bermudez PharmD Unavailable [phone] Reason for Visit * Reason Onset Date Comments Nurse Triage 12/08/2023 Encounter Details Date Type Department Care Team ([facility] st Contact Info) Description 12/08/2023 Telephone [facility] MEDICINE [address] [place] [address] Yeni Willoughby MD [address] [place] [address] Nurse Triage Social History Tobacco Use Types [...] 12/08/2023 10:56 AM EDT Called pt. Via [employer] senior etl developer [phone] Jay. Pt. States that she has been itchy all over herbody x 1 week. Itchiness is worse on neck, arms and on her panty line. Pt. Unsure if it is the medications that she got sent home from [facility] with on 10/26/23 Gabapentin 100mg Three x a day and also Meclizine 25mg 1 tablet 3 times a day as needed. Pt does have rash on neck and hands. Pt denies any itchiness in throat or swelling in throat. Pt denies itchiness on head. I advised that pt. Needs to be seen today or tomorrow in [facility] walk in. Hours provided and pt. [...] 07/16/2024 11:15 AM EDT Office Visit [facility] MEDICINE [address] [place] [address] Yeni Willoughby MD [address] [place] [address] 08/20/2024 1:00 PM EDT Office Visit [facility] ADULT DENTAL [address] [place] [address] Parvin Crystal [address] [place] [address] 09/27/2024 11:00 AM EDT Medication Management [facility] MEDICINE [address] [place] [address] Quoc Bermudez, PharmD [address] [place] [address] 10/02/2024 11:00 AM EDT Office Visit [facility] OPTOMETRY [address] [place] [address] Estefania Pace, JACQUELINE [address] [place] [address] documented as of this encounter Goals Goal [...] documented as of this encounter Care Teams Parts Washer Relationship Specialty Start Date End Date Yeni Willoughby MD [address] [place] [address] PCP - General Family Medicine 02/27/18 Quoc Bermudez PharmD [address] [place] [address] Pharmacist Internal Medicine 02/14/22 [facility] 11/02/23 documented as of this encounter
--- OUTSIDE RECORDS SUMMARY | 2024-06-21 12:02 | XMS_ITS | Encounter Summary ---
Author Organization [employer] Address [address] [facility] 7t [place] [address] Care Team Providers Care Permit Agent Name Role Phone Yeni Willoughby MD Primary Care Provider [phone] Quoc Bermudez PharmD Unavailable [phone] Encounter Details Date Type Department Care Team ([facility] Contact Info) Description 06/21/2023 Orders Only [facility] MEDICINE [address] [place], [place] [phone] Yeni Willoughby MD [address] [place], [place] [phone] Social History Tobacco Use Types Packs/Day Years [...] Description 07/16/2024 11:15 AM EDT Office Visit [facility] MEDICINE [address] [place] [address] Yeni Willoughby MD [address] [place] [address] 08/20/2024 1:00 PM EDT Office Visit [facility] ADULT DENTAL [address] [place] [address] Parvin, Crystal [address] [place] [address] 09/27/2024 11:00 AM EDT Medication Management [facility] MEDICINE [address] [place] [address] Quoc Bermudez, PharmD [address] [place] [address] 10/02/2024 11:00 AM EDT Office Visit [facility] OPTOMETRY [address] [place] [address] Estefania Pace OD [address] [place] [address] documented as of this encounter Goals Goal [...] documented as of this encounter Care Teams Permit Agent Relationship Specialty Start Date End Date Yeni Willoughby MD [address] [place] [address] PCP - General Family Medicine 02/27/18 Quoc Bermudez PharmD [address] [place] [address] Pharmacist Internal Medicine 02/14/22 [facility] 11/02/23 documented as of this encounter
--- OUTSIDE RECORDS SUMMARY | 2024-06-21 12:02 | XMS_ITS | Encounter Summary ---
Author Organization [employer] Address [address] [facility] 7t [place] [address] Care Team Providers Care Die Maintenance Name Role Phone Yeni Willoughby MD Primary Care Provider [phone] Quoc Bermudez PharmD Unavailable [phone] Reason for Visit * Reason Comments Med Refill Encounter Details Date Type Department Care Team ([facility] st Contact Info) Description 06/18/2024 Refill [facility] MEDICINE [address] [place], [place] [phone] Yeni Willoughby MD [address] [place], [place] [phone] Controlled type 2 diabetes mellitus with hyperglycemia, without long-term current use of insulin ([facility]) Social History Tobacco Use Types Packs/Day Years [...] Description 07/16/2024 11:15 AM EDT Office Visit [facility] MEDICINE [address] [place] [address] Yeni Willoughby MD [address] [place] [address] 08/20/2024 1:00 PM EDT Office Visit [facility] ADULT DENTAL [address] [place] [address] Crystal Melendrez [address] [place] [address] 09/27/2024 11:00 AM EDT Medication Management [facility] MEDICINE [address] [place] [address] Quoc Bermudez, PharmD [address] [place] [address] 10/02/2024 11:00 AM EDT Office Visit [facility] OPTOMETRY [address] [place] [address] Estefania Pace, JACQUELINE [address] [place] [address] documented as of this encounter Goals Goal [...] hyperglycemia, without long-term current use of insulin ([facility]) documented in this encounter Additional Health Concerns Assessment Noted Time PHQ-9 Depression Total Score: 0 05/25/19 24 9:46 AM EDT documented as of this encounter Care Teams Die Maintenance Relationship Specialty Start Date End Date Yeni Willoughby MD [address] [place] [address] PCP - General Family Medicine 02/27/18 Quoc Bermudez, RazD [address] [place] [address] Pharmacist Internal Medicine 02/14/22 [facility] 11/02/23 documented as of this encounter
--- OUTSIDE RECORDS SUMMARY | 2024-06-21 12:02 | XMS_ITS | Encounter Summary ---
Author Organization [employer] [facility] Address [address] [place] [address] 7 [place] [address] Care Team Providers Care Social Worker Clinical Name Role Phone Yeni Willoughby MD Primary Care Provider [phone] Quoc Bermudez PharmD Unavailable [phone] Encounter Details Date Type Department Care Team (Latest Contact Info) Description 08/27/2020 Abstract [facility] CONVERSIONS Dental, Provider, DDS Social History [...] Care Team ( st Contact Info) Description 07/16/2024 11:15 AM EDT Office Visit [facility] MEDICINE [address] [place] [address] Yeni Willoughby MD [address] [place] [address] 08/20/2024 1:00 PM EDT Office Visit [facility] ADULT DENTAL [address] [place] [address] Crystal Melendrez [address] [place] [address] 09/27/2024 11:00 AM EDT Medication Management [facility] MEDICINE [address] [place] [phone] Quoc Bermudez, PharmD [address] [place] [address] 10/02/2024 11:00 AM EDT Office Visit [facility] OPTOMETRY [address] [place], [place] [phone] Sanjeev, Estefania, OD [address] [place] [address] documented as of this encounter Visit Diagnoses Not on filedocumented in this encounter Care Teams Social Worker Clinical Relationship Specialty Start Date End Date Yeni Willoughby MD [address] [place], [place] [phone] PCP - General Family Medicine 02/27/18 Quoc Bermudez, PharmD [address] [place] [phone] Pharmacist Internal Medicine 02/14/22 [facility] 11/02/23 documented as of this encounter
--- OUTSIDE RECORDS SUMMARY | 2024-06-21 12:02 | XMS_ITS | Encounter Summary ---
Author Organization [employer] Address [address] [place] [address] 7 [place] [address] Care Team Providers Care Processing Associate Name Role Phone Yeni Willoughby MD Primary Care Provider [phone] Quoc Bermudez PharmD Unavailable [phone] Encounter Details Date Type Department Care Team (Late st Contact Info) Description 04/08/2022 Orders Only [facility] MEDICINE [address] [place] [address] [phone] Yeni Willoughby MD [address] [place] [address] [phone] Controlled type 2 diabetes mellitus with hyperglycemia, without long-term current use of insulin ([facility]) (Primary Dx); History of Graves' [...] Department Care Team (Late Contact Info) Description 07/16/2024 11:15 AM EDT Office Visit [facility] [address] [place] [address] [phone] Yeni Willoughby MD [address] [place] [address] [phone] 08/20/2024 1:00 PM EDT Office Visit [facility] ADULT DENTAL [address] [place] [address] Parvin, Crystal [address] [place] [address] 09/27/2024 11:00 AM EDT Medication Management [facility] MEDICINE [address] [place] [address] Quoc Bermudez, PharmD [address] [place] [address] 10/02/2024 11:00 AM EDT Office Visit [facility] OPTOMETRY [address] [place] [address] Sanjeev, Estefania, OD [address] [place] [address] documented as of this encounter Visit Diagnoses Diagnosis Controlled type 2 diabetes mellitus with hyperglycemia, without long-term current use of insulin ([facility])- Primary History of Graves' disease documented in this encounter Care Teams Processing Associate Relationship Specialty Start Date End Date Yeni Willoughby MD [address] [place] [phone] PCP - General Family Medicine 02/27/18 Quoc Bermudez, PharmD [address] [place] [phone] Pharmacist Internal Medicine 02/14/22 [facility] 11/02/23 documented as of this encounter
--- OUTSIDE RECORDS SUMMARY | 2024-06-21 12:02 | XMS_ITS | Encounter Summary ---
Author Organization [employer] [facility] Address [address] [place] [address] 7 [place] [address] Care Team Providers Care Lace Finisher Name Role Phone Yeni Willoughby MD Primary Care Provider [phone] Quoc Bermudez PharmD Unavailable [phone] Encounter Details Date Type Department Care Team (Latest Contact Info) Description 06/26/2018 Abstract [facility] CONVERSIONS Dental, Provider, DDS Social History Tobacco [...] Department Care Team ( Contact Info) Description 07/16/2024 11:15 AM EDT Office Visit [facility] MEDICINE [address] [place] [address] Yeni Willoughby MD [address] [place] [address] 08/20/2024 1:00 PM EDT Office Visit [facility] ADULT DENTAL [address] [place], [place] [phone] Crystal Melendrez [address] [place] [address] 09/27/2024 11:00 AM EDT Medication Management [facility] MEDICINE [address] [place] [phone] Quoc Bermudez, PharmD [address] [place] [address] 10/02/2024 11:00 AM EDT Office Visit [facility] OPTOMETRY [address] [place], [place] [phone] Sanjeev Estefania, OD [address] [place] [address] documented as of this encounter Visit Diagnoses Not on filedocumented in this encounter Care Teams Lace Finisher Relationship Specialty Start Date End Date Yeni Willoughby MD [address] [place], [place] [phone] PCP - General Family Medicine 02/27/18 Quoc Bermudez, PharmD [address] [place] [address] [phone] Pharmacist Internal Medicine 02/14/22 [facility] 11/02/23 documented as of this encounter
--- OUTSIDE RECORDS SUMMARY | 2024-06-21 12:02 | XMS_ITS | Encounter Summary ---
Author Organization [employer] Address [address] [place] [address] 7 [place] [address] Care Team Providers Care Putty Mixer Name Role Phone Yeni Willoughby MD Primary Care Provider [phone] Quoc Bermudez PharmD Unavailable [phone] Reason for Referral * Consultation (Routine) - Authorized Specialty Diagnoses / Procedures Referred By Contjuan diego t Referred To Contact Pharmacy Diagnoses Primary hypertension Type 2 diabetes mellitus without complication, without long-term current use of insulin (CMS/HCC) Asthma-COPD overlap syndrome (CMS/HCC) Tobacco use Yeni Willoughby MD [address] [place] [address] Phone: tel: fax: Referral ID Status Reason Start Date Expiration Date Visits Requested Visits Authorized [id number] Authorized Consult and Treat 03/01/2024 03/01/2025 6 6 Encounter Details Date Type Department Care Team (Late st Contact Info) Description 03/01/2024 Orders Only [facility] MEDICINE [address] [place] [address] Yeni Willoughby MD [address] [place], [place] [phone] Primary hypertension (Primary Dx); Type 2 diabetes [...] Description 07/16/2024 11:15 AM EDT Office Visit [facility] MEDICINE [address] [place] [address] Yeni Willoughby MD [address] [place] [address] 08/20/2024 1:00 PM EDT Office Visit [facility] ADULT DENTAL [address] [place] [address] Parvin, Crystal [address] [place] [address] 09/27/2024 11:00 AM EDT Medication Management [facility] MED[facility] [address] [place] [address] Quoc Bermudez PharmD [address] [place] [address] 10/02/2024 11:00 AM EDT Office Visit [facility] OPTOMETRY [address] [place] [address] Sanjeev, Estefania, OD [address] [place] [address] Scheduled Referrals Name Type Priority Associated Diagnoses Orde r Schedule Referral to Pharmacy CDTM Outpatient Referral Routine Primary hypertension Type 2 diabetes mellitus without complication, without long-term current use of insulin ([facility]) Asthma-COPD overlap syndrome ([facility]) Tobacco use Ordered: 03/01/2024 documented as of [...] complication, without long-term current use of insulin ([facility]) Asthma-COPD overlap syndrome ([facility]) Tobacco use documented in this encounter Additional Health Concerns Assessment Noted Time PHQ-9 Depression Total Score: 0 05/25/19 24 9:46 AM EDT documented as of this encounter Care Teams Putty Mixer Relationship Specialty Start Date End Date Yeni Willoughby MD [address] [place] [address] PCP - General Family Medicine 02/27/18 Quoc Bermudez PharmD [address] [place] [phone] Pharmacist Internal Medicine 02/14/22 [facility] 11/02/23 documented as of this encounter
--- OUTSIDE RECORDS SUMMARY | 2024-06-21 12:02 | XMS_ITS | Encounter Summary ---
Author Organization [employer] Address [address] [facility] 7t [place] [address] Care Team Providers Care Micro Computer Specialist Name Role Phone Yeni Willoughby MD Primary Care Provider [phone] Quoc Bermudez PharmD Unavailable [phone] Encounter Details Date Type Department Care Team ([facility] Contact Info) Description 05/26/2023 Orders Only [facility] MED[facility]INE [address] [place], [place] [phone] Yeni Willoughby MD [address] [place], [place] [phone] Postablative hypothyroidism (Primary Dx); Hypomagnesemia Social History [...] Description 07/16/2024 11:15 AM EDT Office Visit [facility] MEDICINE [address] [place] [address] Yeni Willoughby MD [address] [place] [address] 08/20/2024 1:00 PM EDT Office Visit [facility] ADULT DENTAL [address] [place] [address] Parvin, Crystal [address] [place] [address] 09/27/2024 11:00 AM EDT Medication Management [facility] MEDICINE [address] [place] [address] Quoc Bermudez, PharmD [address] [place] [address] 10/02/2024 11:00 AM EDT Office Visit [facility] OPTOMETRY [address] [place] [address] Estefania Pace, OD [address] [place] [address] documented as of this encounter Goals Goal [...] Stimulating Hormone 0.05(L) 0.32 - 4.0 uIU/mL [facility] Comment:TSH 3rd Generation ( [facility]) Blood Venous blood specimen / Unknown 06/21/2023 11:29 AM EDT 06/21/2023 1:52 PM EDT us Yeni Willoughby MD LAB BLOOD ORDERABLES Final Resul t Performing Organization Address City/[facility]/ZIP Co de Phone Number [facility] [address] [place] [phone] * T4, Free (06/21/2023 11:29 AM EDT) Free T4 (Free Thyroxine) 1.31 0.71 - 1.85 ng/dL [facility] Blood Venous blood specimen / Unknown 06/21/2023 11:29 AM EDT 06/21/2023 1:52 PM EDT us Yeni Willoughby MD LAB BLOOD ORDERABLES Final Resul t Performing Organization Address City/[facility]/ZIP Co de Phone Number [facility] [address] [place] [phone] documented in this encounter Visit Diagnoses Diagnosis Postablative hypothyroidism- Primary Other postablative hypothyroidism Hypomagnesemia Disorders of magnesium metabolism documented in this encounter Additional Health Concerns Assessment Noted Time PHQ-9 Depression Total Score: 0 05/25/19 9:46 AM EDT documented as of this encounter Care Teams Micro Computer Specialist Relationship Specialty Start Date End Date Yeni Willoughby MD [address] [place] [address] PCP - General Family Medicine 02/27/18 Quoc Bermudez PharmD [address] [place] [address] Pharmacist Internal Medicine 02/14/22 [facility] 11/02/23 documented as of this encounter
--- OUTSIDE RECORDS SUMMARY | 2024-06-21 12:02 | XMS_ITS | Encounter Summary ---
Author Organization [employer] Address [address] [facility] 7t [place] [address] Care Team Providers Care Berry Planter Name Role Phone Yeni Willoughby MD Primary Care Provider [phone] Quoc Bermudez PharmD Unavailable [phone] Encounter Details Date Type Department Care Team ([facility] st Contact Info) Description 06/03/2022 Orders Only [facility] [address] [place] [address] Yeni Willoughby MD [address] [place] [address] Hypomagnesemia (Primary Dx); Lesion of parotid gland; [...] Description 07/16/2024 11:15 AM EDT Office Visit [facility] [address] [place] [address] Yeni Willoughby MD [address] [place] [address] 08/20/2024 1:00 PM EDT Office Visit [facility] ADULT DENTAL [address] [place] [address] Parvin, Crystal [address] [place] [address] 09/27/2024 11:00 AM EDT Medication Management [facility] [address] [place] [address] Quoc Bermudez, PharmD [address] [place] [address] 10/02/2024 11:00 AM EDT Office Visit [facility] OPTOMETRY [address] [place] [address] Sanjeev, Estefania, OD [address] [place] [address] documented as of this encounter Goals Goal [...] documented as of this encounter Care Teams Berry Planter Relationship Specialty Start Date End Date Yeni Willoughby MD [address] [place] [phone] PCP - General Family Medicine 02/27/18 Quoc Bermudez, PharmD [address] [place] [phone] Pharmacist Internal Medicine 02/14/22 [facility] 11/02/23 documented as of this encounter
--- OUTSIDE RECORDS SUMMARY | 2024-06-21 12:02 | XMS_ITS | Clinical Summary ---
Author Organization [employer] Address [address] [facility] [address] [place] [address] Care Team Providers Care Air Chief Marshal Name Role Phone Yeni Washington MD Primary Care Provider [phone] Quoc Bermudez PharmD Unavailable [phone] Allergies Active Allergy Reactions Criticality Noted Date [...] ONCE DAILY IN THE MORNING 60 capsule Active FREESTYLE LITE test stripIndications: Type 2 diabetes mellitus without complication, without long-term current use of insulin ([facility]) TEST BLOOD SUGAR THREE TIMES DAILY 100 each Active atorvastatin (Lipitor) 10 MG tablet Take 2 tablets (20 mg) by mouth Once per day. 60 tablet 024 2024 Active calcium 500 MG tablet Take 1 tablet (500 mg) by mouth Once per day. 90 tablet 3 Active loratadine (Claritin) 10 MG tablet Take 1 tablet (10 mg) by mouth Once per day. 30 tablet Active acetaminophen (Tylenol 8 Hour) 650 MG ER tabletIndications :Chronic low back pain, unspecified back pain laterality, unspecified whether sciatica present Take 1 tablet by mouth every 8 hours as needed 60 tablet 3 Active olmesartan (Benicar) 20 MG tablet Take 1 tablet (20 mg) by mouth Once per day. 90 tablet 024 2024 Active aspirin (Aspirin Low Dose) 81 MG EC tabletIndications :At high risk for cardiovascular disease TAKE 1 TABLET BY MOUTH EVERY MORNING 30 tablet Active amLODIPine (Norvasc) 5 MG tablet TAKE 1 TABLET BY MOUTH EVERY MORNING 30 tablet 3 Active levothyroxine (Synthroid, Levoxyl) 75 MCG tablet Take 75 mcg by mouth in the morning. Active Reguloid 400 MG capsule TAKE 1 CAPSULE BY MOUTH TWICE DAILY IN THE MORNING AND IN THE EVENING Active Trulicity 0.75 MG/0.5ML solution auto-injectorIndi cations:Controlle d type 2 diabetes mellitus without complication, without long-term current use of insulin ([facility]) INJECT ONE PEN (=0.75MG) SUBCUTANEOUSLY ONCE A WEEK DIRECTED 2 mL 3 025 Active omeprazole (PriLOSEC) [address] capsuleIndication s:Gastroesophagea l reflux disease, unspecified whether esophagitis present TAKE 1 CAPSULE BY MOUTH AT BEDTIME 30 capsule 2 025 Active famotidine (Pepcid) 20 MG tablet Take 1 tablet (20 mg) by mouth if needed in the morning and at bedtime for heartburn. 60 tablet 1 025 2024 Active cloNIDine (Catapres) 0.2 MG tablet TAKE 1 TABLET BY MOUTH AT BEDTIME 90 tablet 3 025 Active magnesium oxide (Mag-Ox) 400 MG tablet TAKE 1 TABLET BY MOUTH TWICE DAILY IN THE MORNING AND AT BEDTIME 60 tablet 1 025 Active metFORMIN XR (Glucophage-XR) 500 MG 24 hr tabletIndications :Controlled type 2 diabetes mellitus with hyperglycemia, without long-term current use of insulin (CMS/HCC) TAKE 2 TABLETS BY MOUTH TWICE DAILY IN THE MORNING AND EVENING 360 tablet 025 Active montelukast (Singulair) 10 MG tablet TAKE 1 TABLET BY MOUTH EVERY EVENING 90 tablet 025 Active magnesium oxide (Mag-Ox) 400 MG tablet TAKE 1 TABLET BY MOUTH TWICE DAILY IN THE MORNING AND AT BEDTIME 60 tablet 3 024 2024 Discontinued metFORMIN XR (Glucophage-XR) 500 MG 24 hr tabletIndications :Controlled type 2 diabetes mellitus with hyperglycemia, without long-term current use of insulin (CMS/HCC) TAKE 2 TABLETS BY MOUTH TWICE DAILY IN THE MORNING AND EVENING 360 tablet 025 2024 Discontinued montelukast (Singulair) 10 MG tablet TAKE 1 TABLET BY MOUTH EVERY EVENING 90 tablet 025 2024 Discontinued Active Problems Problem Noted Date Diagnosed Date Dental calculus 07/06/2023 Periodontal disease 07/06/2023 Localized gingival recession 07/06/2023 Pancreatic insufficiency 05/26/2023 Assessment & Plan (02/14/2024 6:23 AM EST): - following with [facility] - provisional Dx US in Mar 2023 showed coarse heterogenous echotexture - prescribed pancreatic enzyme by GI in the past, not taking currently Assessment & Plan (05/26/2023 12:19 PM EDT): - following with [facility] - provisional Dx US in Mar 2023 showed coarse heterogenous echotexture - trying pancreatic enzyme currently Pulmonary nodules 05/26/2023 Assessment & Plan (11/22/2023 10:08 AM EDT): - followed by [facility] lung cancer screening [...] 12:23 PM EDT): - followed by [facility] lung cancer screening [...] 11:18 AM EST): - following with [facility] - hx reactive Hep C antibody, negative in 2020 and 2021 - most recent US on 05/08/23 mildly increased echogenicity of liver. - fibrosis stage F0 - FIB4 index 0.96 - continue working on lifestyle modifications Assessment & Plan (02/13/2024 9:27 AM EST): - following with [facility] - hx reactive Hep C antibody, negative in 2020 and 2021 - most recent US on 05/08/23 mildly increased echogenicity of liver. - fibrosis stage F0 - FIB4 index 0.96 - continue working on lifestyle modifications Assessment & Plan (11/22/2023 9:31 AM EDT): - following with [facility] - hx reactive Hep C antibody, negative in 2020 and 2021 - most recent US on 05/08/23 mildly increased echogenicity of liver. - fibrosis stage F0 - FIB4 index 0.96 - continue working on lifestyle modifications Assessment & Plan (08/16/2023 12:34 PM EDT): - following with [facility] - hx reactive Hep C antibody, negative in 2020 and 2021 - most recent US on 05/08/23 mildly increased echogenicity of liver. - fibrosis stage F0 - FIB4 index 0.96 - continue working on lifestyle modifications Assessment & Plan (05/26/2023 11:47 AM EDT): - following with [facility] - hx [...] eye protection - check an availability of quarry manager or plastic surgeon who can evaluate and [...] & Plan (05/25/2023 5:29 PM EDT): - 05/24/24 Mg 0.9, Ca 9.3; K 3.9 - [...] screen - will check with her [facility] long term care administrator Chronic sinusitis 06/26/2013 Assessment & Plan (04/30/2024 [...] retinopathy. Hx Graves ophthalmopathy. PVD. Seen by [facility] on 01/03/24 - Last comprehensive [...] retinopathy. Hx Graves ophthalmopathy. PVD. Seen by [facility] on 01/03/24 - Last comprehensive foot exam: [...] in 2009 - Started seeing a new dental chairside assistant, Dr. Mccracken, initial visit on 02/08/24. - [...] in 2009 - Started seeing a new dental chairside assistant, Dr. Mccracken, initial visit on 02/08/24. - [...] - Pt was referred to a new dental chairside assistant and was seen on 02/21/19. - Because she is euthyroid, she was discharged Assessment & Plan (11/22/2023 9:58 AM EDT): - History of Graves' disease - Radioactive iodine ablation in 2009 - Medications: Levothyroxine 125 mcg daily. - last TSH 0.06 on 09/22/23 - Check lab and adjust medication accordingly - Previously seeing dental chairside assistant at [facility], then [facility], and was discharged due to her stability and no concern for thyroid cancer. - Of note, patient is on GLP-1 RA Assessment & Plan (08/16/2023 12:39 PM EDT): - History of Graves' disease - Radioactive iodine ablation in 2009 - Medications: Levothyroxine 125 mcg daily. - last TSH 0.05 on 06/21/23 - Check lab and adjust medication accordingly - Previously seeing dental chairside assistant at [facility], then [facility], and was discharged due to her [...] - Continue current replacement - Previously seeing dental chairside assistant at [facility], then [facility], and was discharged due to her stability and no concern for thyroid cancer. >>ASSESSMENT AND PLAN FOR HYPOTHYROIDISM WRITTEN ON 05/25/2023 5:52 AM BY YENI WASHINGTON MD - History of Graves' disease - Radioactive iodine ablation in 2009 - Medications: Levothyroxine 137 mcg daily. - last TSH 0.43 on 06/01/22 - Continue current replacement - Pt was referred to a new dental chairside assistant and was seen on 02/21/19. - Because she is euthyroid, she was discharged Assessment & Plan (08/28/2022 11:01 AM EDT): - Medications: Levothyroxine 137 mcg daily. - last TSH 0.43 on 06/01/22 - Continue current replacement - Pt was referred to a new dental chairside assistant and was seen on 02/21/19. - Because she is euthyroid, she was discharged. Assessment & Plan (06/13/2022 12:48 PM EDT): - Medications: Levothyroxine 137 mcg daily. - last TSH 3.11 on 07/16/20 - Continue current replacement - Pt was referred to a new dental chairside assistant and was seen on 02/21/19. - Because [...] 32; LDL 42 [facility]2011 Assessment & Plan (04/23/2024 11:55 [...] following with sleep medicine clinic at [facility], last seen in May 2023 - home sleep study on 12/15/22, auto PAP 5-20 cm H2O was recommended - recent compliance report shows 100% adherence - continue AutoPAP Assessment & Plan (11/22/2023 9:31 AM EDT): - following with sleep medicine clinic at [facility], last seen in May 2023 - home sleep study on 12/15/22, auto PAP 5-20 cm H2O was recommended - recent compliance report shows 100% adherence - continue AutoPAP Assessment & Plan (08/16/2023 12:31 PM EDT): - following with sleep medicine clinic at [facility], last seen in May 2023 - home sleep study on 12/15/22, auto PAP 5-20 cm H2O was recommended - recent compliance report shows 100% adherence - continue AutoPAP Assessment & Plan (05/26/2023 11:42 AM EDT): - following with sleep medicine clinic at [facility] - home sleep [...] Encounters Date Type Department Care Team Description 06/18/2024 Refill [facility] MEDICINE [address] [place] [address] Yeni Washington MD Controlled type 2 diabetes mellitus with hyperglycemia, without long-term current use of insulin ([facility]) 06/09/2024 Refill [facility] CHC MED & PEDS [address], [place] [phone] Yeni Washington MD 06/05/2024 Refill [facility] MEDICINE [address] [place] [address] Yeni Washington MD Chronic low back pain, unspecified back pain laterality, unspecified whether sciatica present 05/31/2024 Telephone [facility] MEDICINE [address] [place] [address] Ada Swain, RN Results 05/20/2024 Orders Only GENERIC EXTERNAL DATA DEPARTMENT Provider, Generic External Data 05/19/2024 Refill [facility] PEDS [address] [place] [address] Yeni Washington MD 05/11/2024 Refill [facility] MEDICINE [address] [place] [address] Yuridia Kendall MD 05/11/2024 Refill [facility] MEDICINE [address] [place] [address] Heidy Garza ANP Gastroesophageal reflux disease, unspecified whether esophagitis present 04/23/2024 11:15 AM EST Office Visit [facility] MEDICINE [address] [place] [address] Yeni Washington MD Type 2 diabetes mellitus [...] Dyspnea, unspecified type 04/23/2024 Travel 04/17/2024 Telephone [facility] MEDICINE [address] [place] [address] Yeni Washington MD Chart Prep 04/10/2024 Refill [facility] [address] [place] [address] Yeni Washington MD Controlled type 2 diabetes mellitus without complication, without long-term current use of insulin (CMS/HCC) 04/05/2024 Travel 03/27/2024 Telephone [facility] MEDICINE [address] [place] [address] Quoc Bermudez, PharmD from Last 3 Months Immunizations Name Administration [...] Description 07/16/2024 11:15 AM EDT Office Visit [facility] MEDICINE [address] [place] [address] Yeni Washington MD [address] [place] [address] 08/20/2024 1:00 PM EDT Office Visit [facility] ADULT DENTAL [address] [place] [address] Crystal Melendrez [address] [place] [address] 09/27/2024 11:00 AM EDT Medication Management [facility] MEDICINE [address] [place] [address] Quoc Bermudez, PharmD [address] [place] [address] 10/02/2024 11:00 AM EDT Office Visit [facility] OPTOMETRY [address] [place] [address] Sanjeev, Estefania, OD [address] [place] [address] Health Maintenance Due Date Last Done Comments CT Colonography 1965 Colonoscopy 1965 Colorectal Cancer Screening 1965 FIT DNA/Cologuard 1965 FIT 1965 FOBT 1965 Sigmoidoscopy 1965 Dental X-Ray: Full Mouth 08/29/2023 08/27/2020 Dental Oral Exam 12/16/2023 06/15/2023, 10/2021, 08/27/2020, Additional history exists Depression Screening 05/24/2024 05/25/2023, 05/25/19 Dental X-Ray: Bitewings 06/15/2024 06/15/19 24, 08/27/2020, 06/26/2018, Additional history exists SDOH Screening 08/14/2024 08/15/2023 Dental Prophylaxis 08/20/2024 02/19/2024, 0 07/06/2023, 04/07/2021, Additional history exists Diabetes: Hemoglobin A1C 10/21/202404/23/2 025, 02/13/2024, 11/22/2023, Additional history exists Eye Exam 01/09/2025 01/09/2023, 12/28, 01/09/2023, Additional history exists Alcohol/Substance Use Screening 02/12/2025 02/13/2024 Diabetes: Foot Exam 04/23/2025 04/23/2024, 04/23/2024, 04/23/2024, Additional history exists Tobacco Screening 04/30/2025 04/30/2024 Diabetes: Urine Protein Screening 05/20/2025 05/20/2024, 02/19/2024, 05/26/2023, Additional history exists Lipid Panel 05/28/2025 05/28/2024, 04/28, 05/25/2023, Additional history exists Cervical Cancer Screening 06/22/2025 HPV/Cotest 06/22/2025 06/22/2020, 12/29/2016 Pap Smear 06/22/2025 06/22/2020 Mammogram 05/24/2026 05/24/2024, 10/29, 11/08/2021, Additional history exists DTaP/Tdap/Td Vaccines (3 - Td or Tdap) [...] LDL Routine 05/28/2024 12:13 PM EDT Dyslipidemia BI MAMMOGRAM SCREENING TOMOSYNTHESIS BILATERAL Routine 05/24/2024 3:00 PM EDT T3, TOTAL Routine 05/20/2024 10:00 AM EDT [...] without long-term current use of insulin (CMS/HCC) PROPHYLAXIS - ADULT Routine 02/19/2024 1 1:00 [...] GENERATION W/RFL Routine 04/12/2023 4:03 PM EST INTRAORAL - COMPLETE SERIES OF RADIOGRAPHIC IMAGES Routine 08/27/2020 12:00 AM EDT HPV MRNA E6/E7 Routine 06/22/2020 6:38 AM EDT THINPREP PAP Routine 06/22/2020 6:38 AM EDT from Last 3 Months or Most Recently Relevant to Health Maintenance Results * (ABNORMAL) Lipid Panel with Reflex to Direct LDL (05/28/2024 12:13 PM EDT) Only the most recent of2 resultswithin the time period is included. Triglycerides 243(H) <150 mg/dL [facility] Comment:Desirable Triglyceri de: less than 150 mg/dLBorderline High Triglyceride 150-199 mg/dLHigh Triglyceride: 200-499 mg/dLVery High Triglyceride: greater than or equal to 5OO mg/dL Cholesterol 97 <200 mg/dL [facility] Comment:Desirable Cholestero l: less than 200 mg/dLBorderline High Cholesterol: 200-239 mg/dLHigh Cholesterol: greater than 239 mg/dL LDL Cholesterol Calculated 14 <100 mg/dL [facility] Comment:Desirable LDL: less than 100 mg/dLNear Optimal/Above Optimal LDL: 110- 129 mg/dLBorderline High LDL: 130-159 mg/dLHigh LDL: 160-189 mg/dLVery High LDL: greater than or equal to 190 mg/dL HDL Cholesterol 35(L) >40 mg/dL [facility] Comment:Desirable HDL: great er than 40 mg/dL Note: This HDL assay may give artificially low results in patients with liver disease. Blood 05/28/2024 12:1 3 PM EDT 05/28/2024 1:15 PM EDT us Yeni Washington MD LAB BLOOD ORDERABLES Final Resul t [facility] [address] [place] [address] [phone] * BI Mammogram Screening Tomosynthesis Bilateral (05/24/2024 3:00 PM EDT) Anatomical Region Laterality Modality Breast Bilateral Mammography 05/24/2024 3:00 PM EDT Narrative 06/01/2024 3:10 PM EDT ? [facility] [place] ? [address] ?[place] [address] ?[phone] ? Mammography Report ? Signed ? Patient: Barth,Jennifer I ?MR#: [id number] ? : 1965 ?Acct:[id number] ? Age/Sex: 59 / F ?ADM Date: //25 ? Loc: HO.MAMMO ? Attending Dr: Yeni Washington MD ? Ordering Physician: Yeni Washington MD ?Results: 2Benign F ?? indings ? Date of Service: //25 ?Follow Up: 1 Year From Orig ?? inal Mammogram ? Procedure(s): MM tomosynthesis screening BI ?? Accession Number(s): [id number] ? cc: Yeni Washignton MD ? EXAMINATION: ?? MM SCREENING DIGITAL BREAST TOMOSYNTHESIS, BILATERAL ? CLINICAL INFORMATION: ? Screening. Asymptomatic. ? COMPARISON: ?? Mammography: Comparison is made with available priors ? TECHNIQUE: ?? Digital breast mammography with tomosynthesis is performed in both the ?? craniocaudal and mediolateral oblique views along with computer-aided ?? detection (CAD). ? FINDINGS: ?? There are scattered areas of fibroglandular density (ACR BI-RADS breast ?? composition Category b). ?? Right breast marker clips. ?? There are no significant masses, abnormal calcifications, or other ?? abnormalities. ? MM/MM tomosynthesis screening BI ?? IMPRESSION: [...] due date for their next mammogram. ? Electronically signed by: ??Guerline Frances DO ??06/01/2024 03:07 PM EDT ?? RP ? Dictated By: ?Guerline Frances DO ? Signed By: ?<Electronically signed by Guerline Frances, DO in OV> ? 06/01/24 1507 ? DD/ 1500 ? TD/TT: 05/24/24 1515 ? Internal Corrosion Specialist: ? Procedure Note Santiago Ruelas - 06/01/2024 [facility] [address] [place] [address] Mammography Report Signed Patient: Jennifer Barth IMR#: [id number] : 1965Acct:[id number] Age/Sex: 59 / FADM Date: 05/24/24 Loc: RADHALucioKELLI Attending Dr: Yeni Washington MD Ordering Physician: Yeni Washington MDResults: 2Benign F indings Date of Service: 05/24/24Follow Up: 1 Year From Orig inal Mammogram Procedure(s): MM tomosynthesis screening BI Accession Number(s): [id number] cc: Yeni Washington MD EXAMINATION: MM SCREENING DIGITAL BREAST TOMOSYNTHESIS, BILATERAL CLINICAL INFORMATION: Screening. Asymptomatic. COMPARISON: Mammography: Comparison is made with available priors TECHNIQUE: Digital breast mammography with tomosynthesis is performed in both the craniocaudal and mediolateral oblique views along with computer-aided detection (CAD). FINDINGS: There are scattered areas of fibroglandular density (ACR BI-RADS breast composition Category b). Right breast marker clips. There are no significant masses, abnormal calcifications, or other abnormalities. MM/MM tomosynthesis screening BI IMPRESSION: No mammographic evidence of malignancy. ASSESSMENT: BI-RADS BI-RADS 2 - Benign Findings RECOMMENDATION: Routine annual mammography screening. 1 year F/U This examination should not preclude the clinical evaluation of a suspicious palpable abnormality. This patient's information was entered into a reminder system with a target due date for their next mammogram. Electronically signed by: Guerline Frances DO 06/01/2024 03:07 PM EDT Dictated By: Guerline Frances DO Signed By: <Electronically signed by Guerline Frances DO in OV> 06/01/24 1507 DD/ 1500 TD/TT: 05/24/24 1515 Internal Corrosion Specialist: Yeni Washington MD IMG BI PROCEDURES Edited Result - Final * (ABNORMAL) T3, Total (05/20/2024 10:00 AM EDT) T3, Total 63(A) 76 - 181 ng/dL [facility] Comment:THIS TEST WAS PERFOR MED AT:[facility] [place] [id number] GANDHI MD 05/20/2024 10:0 0 AM EDT 05/20/2024 10:00 AM EDT us Generic External Data Provider LAB BLOOD ORDERAB LES Final Result Performing Organization Address City/[facility]/ZIP Co de Phone Number [facility] [address] [place] [phone] * (ABNORMAL) TSH (05/20/2024 10:00 AM EDT) Thyroid Stimulating Hormone 4.96(H) 0.32 - 4.0 uIU/mL [facility] Comment:Note: A sustained TS H level above 2.5 uIU/mL may warrant further investigation. TSH 3rd Generation ([facility]) 05/20/2024 10:0 0 AM EDT 05/20/2024 10:00 AM EDT us Generic External Data Provider LAB BLOOD ORDERAB LES Final Result Performing Organization Address [facility] Co de Phone Number [facility] [address] [place] [phone] * T4, Free (05/20/2024 10:00 AM EDT) Free T4 (Free Thyroxine) 1.14 0.71 - 1.85 ng/dL [facility] 05/20/2024 10:0 0 AM EDT 05/20/2024 10:00 AM EDT us Generic External Data Provider LAB BLOOD ORDERAB LES Final Result Performing Organization Address [facility] Co de Phone Number [facility] [address] [place] [phone] * (ABNORMAL) Comprehensive Metabolic Panel (05/20/2024 10:00 AM EDT) Sodium 141 135 - 145 mmol/L [facility] Potassium 4.8 3.3 - 5.1 mmol/L [facility] Chloride 106 96 - 108 mmol/L [facility] Carbon Dioxide 26 22 - 29 mmol/L [facility] Anion Gap 14 12 - 20 [facility] Urea Nitrogen (BUN) 26(H) 9 - 16 mg/dL [facility] Creatinine, Serum 1.15 0.5 - 1.4 mg/dL [facility] Estimated Glomerular Filt Rate 48 [facility] Comment:Chronic Kidney Disea se: Estimated GFR < 60 mL/min/1.02m4Orycpr Kidney Disease: Estimated GFR < 15 mL/min/1.73m2 Glucose 88 60 - 115 mg/dL [facility] Calcium 10.0 8.4 - 10.2 mg/dL [facility] Bilirubin, Total 0.9 0.0 - 1.0 mg/dL [facility] Aspartate Amino Transferase 23 5 - 31 U/L [facility] Alanine Aminotransferase 18 0 - 31 U/L [facility] Total Protein 8.3(H) 6.5 - 8.0 g/dL [facility] Albumin Level 4.2 3.5 - 5.0 g/dL [facility] Alkaline Phosphatase 85 39 - 117 U/L [facility] Blood Venous blood specimen / Unknown 05/20/2024 10:00 AM EDT 05/20/2024 10:00 AM EDT us Yeni Washington MD LAB BLOOD ORDERABLES Final Resul t [facility] [address], [place] [phone] * Albumin, Random Urine W/Creatinine (05/20/2024 9:56 AM EDT) Creatinine, Urine 141.41 mg/dL [facility] Microalbumin Urine 19.0 mg/L [facility] Microalbum Creatinine Ratio Ur 13.4 <30 ug/mg cr [facility] Comment:Albumin/Creatinine R atio Reference Ranges: Normal: < 30 ug/mg creatinine Microalbuminuria: 30 - 300 ug/mg creatinineClinical Albuminuria: > 300 ug/mg creatinine Urine 05/20/2024 9:56 AM EDT 05/20/2024 10:56 AM EDT us Yeni Washington MD LAB URINE ORDERABLES Final Resul t [facility] [address] [place] [phone] * CT Sinus w/o Contrast (05/20/2024 9:42 AM EDT) Anatomical Region Laterality Modality Computed Tomogra phy 05/20/2024 9:42 AM EDT Narrative 05/20/2024 3:02 PM EDT ? [facility] ?[address] ?[place] [address] ? CT Scan Report ? Signed ? Patient: Barth,Jennifer I ?MR#: [id number] ? : 1965 ?Acct:[id number] ? Age/Sex: 59 / F ?ADM Date: 05/20/24 ? Loc: HO.CT ? Attending Dr: Yeni Washington MD ? Ordering Physician: Yeni Washington MD ?? Date of Service: 05/20/24 ?? Procedure(s): CT sinus wo IV con ?? Accession Number(s): [id number] ? cc: Yeni Washington MD ? Report Number: ?? [id number]: Total DLP = ?? 81.00 mGy-cm ?? [...] ??Jatinder Carlos MD ??05/20/2024 03:00 PM EDT ?? RP ? Dictated By: ?Jatinder Carlos MD ? Signed By: ?<Electronically signed by Jatinder Carlos MD in OV> ?05/20/24 1500 ? DD/ 0942 ? TD/TT: 05/20/24 1021 ? Internal Corrosion Specialist: ? Procedure Note Suraj, Image - 05/20/[address] [address] [address] Scan Report Signed Patient: Jennifer Barth IMR#: [id number] : 1965Acct:[id number] Age/Sex: 59 / FADM Date: 05/20/24 Loc: HO.CT Attending Dr: Yeni Washington MD Ordering Physician: Yeni Washington MD Date of Service: 05/20/24 Procedure(s): CT sinus wo IV con Accession Number(s): [id number] cc: Yeni Washington MD Report Number: [id number]: Total DLP = 81.00 mGy-cm EXAMINATION: CT [...] Jatinder Carlos MD 05/20/2024 03:00 PM EDT Dictated By: Jatinder Carlos MD Signed By: <Electronically signed by Jatinder Carlos MD in OV> 05/20/24 1500 DD/ 0942 TD/TT: 05/20/24 1021 Internal Corrosion Specialist: us Yeni Washington MD IMG CT PROCEDURES Final Result * POCT glycosylated hemoglobin (Hgb A1c) (04/23/2024 11:27 AM EST) Pathologist [facility] Hemoglobin A1C 6.0 4.0 - 6.0 % QC Media Lot # [id number] Lot# Expiration Date Blood Capillary blood specimen / Unknown 04/23/2024 11:27 AM EST Yeni Washington MD POINT OF CARE TEST ENTER/EDIT OR DERABLES Final Result * POCT glucose manually resulted (04/23/2024 11:27 AM EST) Pathologist [facility] Glucose Blood, POC 146 60 - 200 mg/dL QC Media Lot # [id number] Lot# Expiration Date Blood Capillary blood specimen / Unknown 04/23/2024 11:27 AM EST Yeni Washington MD POINT OF CARE TEST ENTER/EDIT OR DERABLES Final Result * Hepatitis C Antibody with Reflex to HCV, RNA, Quantitative, Real-Time PCR (02/13/2024 10:03 AM EST) [facility] Hepatitis C Antibody Nonreactive Nonreactive [facility] Comment:Antibodies to HCV no t detected; does not exclude early acuteHCV infection. Blood Venous blood specimen / Unknown 02/13/2024 10:03 AM EST 02/13/2024 11:03 AM EST Yeni Washington MD LAB BLOOD ORDERABLES Final Resul t [facility] [address] [place] [phone] * HIV-1/2 Antigen and Antibodies, Fourth Generation, with Reflexes (04/12/2023 4:03 PM EST) [facility] HIV AB/AG Nonreactive Nonreactive [facility] Comment:HIV-1 p24 Ag and/or HIV-1/HIV-2 Ab not detected.A test result that is nonreactive does not exclude thepossibility of exposure to or infection with HIV-1 and/orHIV-2. Nonreactive results in this assay for individualswith prior exposure to HIV-1 and/or HIV-2 may be due toantigen and antibody levels that are below the limit ofdetection of this assay.The [employer] HIV Ag/Ab Combo assay result andsupplemental assay results should be interpreted inconjunction with the patient's clinical presentation,history and other laboratory results. If the results areinconsistent with clinical evidence, additional testing issuggested to confirm the result. 04/12/2023 4:03 PM EST 04/12/2023 4:03 PM EST us Generic External Data Provider LAB BLOOD ORDERAB LES Final Result Performing Organization Address City/State/[facility] Co de Phone Number [facility] [address] [place] [phone] * THINPREP PAP (06/22/2020 6:38 AM EDT) Clinical Information: None given [facility] [facility] COMMENT SEE COMMENT [facility]OUNDAT[facility] ON [...] historic and ?? current clinical information. ?? Meat Packer : SEE COMMENT [employer] [facility] Comment: DMM, CT(ASCP) CT screening location: [address] ??[phone] Interpretation/R esult: Negative for intraepithelial lesion or malignancy. [employer] [facility] LMP: NONE GIVEN [facility] Prev. BX: NONE [facility]IV[facility] Prev. PAP: NONE [facility]IV[facility] SOURCE: None given [facility] Statement Of Adequacy: SEE COMMENT [employer] [facility] Comment: Satisfactory for evaluation. Endocervical/transformation zone component present. Age and/or menstrual status not provided 06/22/2020 6:38 AM EDT Yeni Washington MD LAB PATHOLOGY ORDERABLES Final R esult Performing Organization Address [facility] de Phone Number [facility] [address] * HPV mRNA E6/E7 (06/22/2020 6:38 AM EDT) HPV nRNA E6/E7 Not Detected Not Detected [facility] Comment: Methodology: Slide Fastener Chain Assembler-Mediated Amplification This assay detects E6/E7 viral messenger RNA (mRNA) from 14 high-risk HPV types (16,18,31,33,35,39,45,51,52,56,58,59,66,68). ? The analytical performance characteristics of this assay have been determined by [employer]. The modifications have not been cleared or approved by the FDA. This assay has been validated pursuant to the CLIA regulations and is used for clinical purposes. ?? For additional information, please refer to http://education.Rockbot.Cloudstaff/faq/LEF339j8 (This link if provided for information/ educational purposes only.) 06/22/2020 6:38 AM EDT Yeni Washington MD LAB BLOOD ORDERABLES Final Resul t Performing Organization Address [facility] de Phone Number [facility] [address] from Last 3 Months or Most Recently Relevant to Health Maintenance Insurance [facility] - [facility] Care Teams Air Chief Marshal Relationship Specialty Start Date End Date Yeni Washington MD [address] [place], [place] PCP - General Family Medicine 02/27/18 Quoc Bermudez, PharmD [address] [place], [place] Pharmacist Internal Medicine 02/14/22 [facility] 11/02/23
--- OUTSIDE RECORDS SUMMARY | 2024-06-21 12:02 | XMS_ITS | Encounter Summary ---
Author Organization [employer] Address 75 [facility] 7 [place] [address] Care Team Providers Care Community Advocate Name Role Phone Yeni Willoughby MD Primary Care Provider [phone] Quoc Bermudez PharmD Unavailable [phone] Reason for Referral * Medications - Closed Specialty Diagnoses / Procedures Referred By Contac t Referred To Contact Diagnoses Type 2 diabetes mellitus without complication, without long-term current use of insulin (CMS/[facility]) Yeni Willoughby MD [address] [place] [address] Phone: tel: fax: Referral ID Status Reason Start Date Expiration Date Visits Re quested Visits Authorized [id number] Closed 1 1 Encounter Details Date Type Department Care Team (Late st Contact Info) Description 10/18/2023 Orders Only [facility] MEDICINE [address] [place] [address] [phone] Yeni Willoughby MD [address] [place] [phone] Hypomagnesemia (Primary Dx); Dehydration; CHEMO (acute kidney [...] Description 07/16/2024 11:15 AM EDT Office Visit [facility] MEDICINE [address] [place] [address] Yeni Willoughby MD [address] [place] [address] 08/20/2024 1:00 PM EDT Office Visit [facility] ADULT DENTAL [address] [place] [address] Crystal Melendrez [address] [place] [address] 09/27/2024 11:00 AM EDT Medication Management [facility] MEDICINE [address] [place] [address] Quoc Bermudez PharmD [address] [place] [address] 10/02/2024 11:00 AM EDT Office Visit [facility] OPTOMETRY [address] [place] [address] Sanjeev, Estefania, OD [address] [place] [address] Scheduled Orders Name Type Priority Associated Diagnoses Orde r Schedule Basic Metabolic Panel Lab Routine Hypomagnesemia Dehydration CHEMO (acute kidney injury) ([facility]) Expected: 10/23/2023 (Approximate), Expires: 10/17/2024 Magnesium Lab Routine Hypomagnesemia Dehydration CHEMO (acute kidney injury) ([facility]) Expected: 10/23/2023 (Approximate), Expires: 10/17/2024 documented as [...] magnesium metabolism Dehydration CHEMO (acute kidney injury) ([facility]) Type 2 diabetes mellitus without complication, without long-term current use of insulin ([facility]) documented in this encounter Additional Health Concerns Assessment Noted Time PHQ-9 Depression Total Score: 0 05/25/19 24 9:46 AM EDT documented as of this encounter Care Teams Community Advocate Relationship Specialty Start Date End Date Yeni Willoughby MD [address] [place] [address] PCP - General Family Medicine 02/27/18 Quoc Bermudez PharmD [address] [place] [address] [phone] Pharmacist Internal Medicine 02/14/22 [facility] 11/02/23 documented as of this encounter
--- OUTSIDE RECORDS SUMMARY | 2024-06-21 12:02 | XMS_ITS | Encounter Summary ---
Author Organization [employer] Address 75 [facility] 7t [place] [address] Care Team Providers Care Household Assistant Name Role Phone Yeni Willoughby MD Primary Care Provider [phone] Quoc Bermudez PharmD Unavailable [phone] Encounter Details Date Type Department Care Team ([facility] Contact Info) Description 11/22/2023 Orders Only [facility] MEDICINE [address] [place], [place] [phone] Yeni Willoughby MD [address] [place], [place] [phone] Hypomagnesemia (Primary Dx); Hypocalcemia Social History Tobacco [...] 11:15 AM EDT Office Visit [facility] MEDICINE [address] [place] [address] Yeni Willoughby MD [address] [place] [address] 08/20/2024 1:00 PM EDT Office Visit [facility] ADULT DENTAL [address] [place] [address] Maycol Melendrezaris [address] [place] [address] 09/27/2024 11:00 AM EDT Medication Management [facility] MEDICINE [address] [place] [address] Quoc Bermudez, PharmD [address] [place] [address] 10/02/2024 11:00 AM EDT Office Visit [facility] OPTOMETRY [address] [place] [address] Estefania Pace, OD [address] [place] [address] Scheduled Orders Name Type Priority Associated Diagnoses [...] EST) Magnesium 2.2 1.6 - 2.6 mg/dL [facility] Blood Venous blood specimen / Unknown 02/06/2024 12:07 PM EST 02/06/2024 1:03 PM EST us Yeni Willoughby MD LAB BLOOD ORDERABLES Final Resul t [facility] [address] [place] [phone] * (ABNORMAL) TSH (01/12/2024 11:55 AM EST) Thyroid Stimulating Hormone 0.05(L) 0.32 - 4.0 uIU/mL [facility] Comment:TSH 3rd Generation ( [facility]) Blood Venous blood specimen / Unknown 01/12/2024 11:55 AM EST 01/12/2024 12:57 PM EST Yeni Willoughby MD LAB BLOOD ORDERABLES Final Resul t Performing Organization Address City/[facility]/ZIP Co de Phone Number [facility] [address] [place] [phone] * T4, Free (01/12/2024 11:55 AM EST) Free T4 (Free Thyroxine) 1.32 0.71 - 1.85 ng/dL [facility] Blood Venous blood specimen / Unknown 01/12/2024 11:55 AM EST 01/12/2024 12:57 PM EST us Yeni Willoughby MD LAB BLOOD ORDERABLES Final Resul t Performing Organization Address [facility] Co de Phone Number [facility] [address] [place] [phone] * (ABNORMAL) Magnesium (01/12/2024 11:55 AM EST) Magnesium 1.3(LL) 1.6 - 2.6 mg/dL [facility] Comment:Critical value for M AG: Results called to and read back by:Naty Rodriguez Person calling: JIMMY Date: 01/12/24 Time: 1414 Blood Venous blood specimen / Unknown 01/12/2024 11:55 AM EST 01/12/2024 12:57 PM EST us Yeni Willoughby MD LAB BLOOD ORDERABLES Final Resul t Performing Organization Address City/[facility]/ZIP Co de Phone Number [facility] [address] [place] [phone] * (ABNORMAL) Basic Metabolic Panel (01/12/2024 11:55 AM EST) Sodium 141 135 - 145 mmol/L [facility] Potassium 4.1 3.3 - 5.1 mmol/L [facility] Chloride 106 96 - 108 mmol/L [facility] Carbon Dioxide 29 22 - 29 mmol/L [facility] Anion Gap 10(L) 12 - 20 [facility] Urea Nitrogen (BUN) 20(H) 9 - 16 mg/dL [facility] Creatinine, Serum 0.99 0.5 - 1.4 mg/dL [facility] Estimated Glomerular Filt Rate 57 [facility] Comment:Chronic Kidney Disea se: Estimated GFR < 60 mL/min/1.96f4Mqczvr Kidney Disease: Estimated GFR < 15 mL/min/1.73m2 Glucose 97 60 - 115 mg/dL [facility] Calcium 9.3 8.4 - 10.2 mg/dL [facility] Blood Venous blood specimen / Unknown 01/12/2024 11:55 AM EST 01/12/2024 12:57 PM EST us Yeni Willoughby MD LAB BLOOD ORDERABLES Final Resul t [facility] [address] [place] [phone] documented in this encounter Visit Diagnoses Diagnosis Hypomagnesemia- Primary Disorders of magnesium metabolism Hypocalcemia documented in this encounter Additional Health Concerns Assessment Noted Time PHQ-9 Depression Total Score: 0 05/25/19 24 9:46 AM EDT documented as of this encounter Care Teams Household Assistant Relationship Specialty Start Date End Date Yeni Willoughby MD [address] [place] [address] PCP - General Family Medicine 02/27/18 Quoc Bermudez, RazD [address] [place] [address] Pharmacist Internal Medicine 02/14/22 [facility] 11/02/23 documented as of this encounter
--- OUTSIDE RECORDS SUMMARY | 2024-06-21 12:03 | XMS_ITS | Encounter Summary ---
Author Organization [employer] [facility] Address [address] [facility] 7t [place] [address] Care Team Providers Care Ship Liner Name Role Phone Yeni Willoughby MD Primary Care Provider [phone] Quoc Bermudez PharmD Unavailable [phone] Reason for Visit * Reason Onset Date Comments Referral 11/04/2022 Encounter Details Date Type Department Care Team ([facility] st Contact Info) Description 11/04/2022 Telephone [facility] MEDICINE [address] [place] [address] Yeni Willoughby MD [address] [place] [address] Referral Social History Tobacco Use Types Packs/Day [...] Description 07/16/2024 11:15 AM EDT Office Visit [facility] MEDICINE [address] [place] [address] Yeni Willoughby MD [address] [place] [address] 08/20/2024 1:00 PM EDT Office Visit [facility] ADULT DENTAL [address] [place] [address] Maycol Melendrezaris [address] [place] [address] 09/27/2024 11:00 AM EDT Medication Management [facility] MEDICINE [address] [place] [address] Quoc Bermudez, PharmD [address] [place] [address] 10/02/2024 11:00 AM EDT Office Visit [facility] OPTOMETRY [address] [place] [address] Sanjeev, Estefania, OD [address] [place] [address] documented as of this encounter Goals Goal [...] documented as of this encounter Care Teams Ship Liner Relationship Specialty Start Date End Date Yeni Willoughby MD [address] [place] [address] PCP - General Family Medicine 02/27/18 Quoc Bermudez, PharmD [address] [place] [phone] Pharmacist Internal Medicine 02/14/22 [facility] 11/02/23 documented as of this encounter
--- OUTSIDE RECORDS SUMMARY | 2024-06-21 12:03 | XMS_ITS | Encounter Summary ---
Author Organization [employer] Address 75 [facility] 7t [place] [address] Care Team Providers Care Boy'S Adviser Name Role Phone Yeni Willoughby MD Primary Care Provider [phone] Quoc Bermudez PharmD Unavailable [phone] Reason for Visit * Reason Comments Med Refill Encounter Details Date Type Department Care Team ([facility] Contact Info) Description 12/18/2022 Refill [facility] MEDICINE [address] [place] [address] Heidy Garza, ANP [address] [place] [address] Social History Tobacco Use Types Packs/Day Years [...] Description 07/16/2024 11:15 AM EDT Office Visit [facility] MEDICINE [address] [place] [address] Yeni Willoughby MD [address] [place] [address] 08/20/2024 1:00 PM EDT Office Visit [facility] ADULT DENTAL [address] [place] [address] Parvin, Crystal [address] [place] [address] 09/27/2024 11:00 AM EDT Medication Management [facility] MEDICINE [address] [place] [address] Quoc Bermudez, PharmD [address] [place] [address] 10/02/2024 11:00 AM EDT Office Visit [facility] OPTOMETRY [address] [place] [address] Estefania Pace, OD [address] [place] [address] documented as of this encounter Goals Goal [...] documented as of this encounter Care Teams Boy'S Adviser Relationship Specialty Start Date End Date Yeni Willoughby MD [address] [place] [address] PCP - General Family Medicine 02/27/18 Quoc Bermudez, RazD [address] [place] [address] Pharmacist Internal Medicine 02/14/22 [facility] 11/02/23 documented as of this encounter
--- OUTSIDE RECORDS SUMMARY | 2024-06-21 12:03 | XMS_ITS | Encounter Summary ---
Author Organization [employer] Address 75 [facility] 7t [place] [address] Care Team Providers Care Fare Register Repairer Name Role Phone Yeni Willoughby MD Primary Care Provider [phone] Quoc Bermudez PharmD Unavailable [phone] Encounter Details Date Type Department Care Team ([facility] Contact Info) Description 02/07/2024 Orders Only [facility] MEDICINE [address] [place], [place] [phone] Yeni Willoughby MD [address] [place] [address] Hyperkalemia (Primary Dx); Stage 3a chronic kidney [...] Description 07/16/2024 11:15 AM EDT Office Visit [facility] MEDICINE [address] [place] [address] Yeni Willoughby MD [address] [place] [address] 08/20/2024 1:00 PM EDT Office Visit [facility] ADULT DENTAL [address] [place] [address] Crystal Melendrez [address] [place] [address] 09/27/2024 11:00 AM EDT Medication Management [facility] MEDICINE [address] [place] [address] Quoc Bermudez, PharmD [address] [place] [address] 10/02/2024 11:00 AM EDT Office Visit [facility] OPTOMETRY [address] [place] [address] Estefania Pace, JACQUELINE [address] [place] [address] Scheduled Orders Name Type Priority Associated Diagnoses [...] documented as of this encounter Care Teams Fare Register Repairer Relationship Specialty Start Date End Date Yeni Willoughby MD [address] [place] [address] PCP - General Family Medicine 02/27/18 Quoc Bermudez PharmD [address] [place] [address] Pharmacist Internal Medicine 02/14/22 [facility] 11/02/23 documented as of this encounter
== END 2024-06-21 11:55 | disposition home or self-care (01) ==
LOC: HO.HGI 11:12
PROVIDERS: PCP Family Medicine; Visit Provider Nurse Practitioner
DX: K58.2 Mixed irritable bowel syndrome (principal); K86.81 Exocrine pancreatic insufficiency; Z12.11 Encounter for screening for malignant neoplasm of colon
CPT/HCPCS: 99213

== ENCOUNTER → 2024-06-21 11:11 | Outpatient (BNVA) | payer OTHER, SELFPAY | PROVIDERS: PCP Family Medicine; Visit Provider Nurse Practitioner | DX: Z01.818 Encounter for other preprocedural examination (principal); K58.2 Mixed irritable bowel syndrome; K86.89 Other specified diseases of pancreas; K86.81 Exocrine pancreatic insufficiency; M62.08 Separation of muscle (nontraumatic), other site; G47.33 Obstructive sleep apnea (adult) (pediatric); J44.9 Chronic obstructive pulmonary disease, unspecified; N81.4 Uterovaginal prolapse, unspecified; Z99.89 Dependence on other enabling machines and devices | CPT/HCPCS: 99212 ==

== ENCOUNTER 2024-06-27 11:10 | Outpatient (REF) | payer OTHER, SELFPAY ==
--- OUTSIDE RECORDS SUMMARY | 2024-06-27 13:00 | XMS_ITS | Encounter Summary ---
Author Organization [employer] Address [address] [place] [address] 7 [place] [address] Care Team Providers Care Hydrant Setter Name Role Phone Yeni Willoughby MD Primary Care Provider [phone] Quoc Bermudez PharmD Unavailable Reason for Referral * Consultation (Routine) - Authorized Specialty Diagnoses / Procedures Referred By Contjuan diego t Referred To Contact Pharmacy Diagnoses Primary hypertension Type 2 diabetes mellitus without complication, without long-term current use of insulin (CMS/HCC) Asthma-COPD overlap syndrome (CMS/HCC) Tobacco use Yeni Willoughby MD [address] [place] [address] Phone: tel: fax: Referral ID Status Reason Start Date Expiration Date Visits Requested Visits Authorized [id number] Authorized Consult and Treat 03/01/2024 03/01/2025 6 6 Encounter Details Date Type Department Care Team (Late st Contact Info) Description 03/01/2024 Orders Only [facility] MEDICINE [address] [place] [address] Yeni Willoughby MD [address] [place], [place] [phone] Primary hypertension (Primary Dx); Type 2 diabetes [...] 11:15 AM EDT Office Visit [facility] MEDICINE [address] [place] [address] Yeni Willoughby MD [address] [place] [address] 08/20/2024 1:00 PM EDT Office Visit [facility] ADULT DENTAL [address] [place] [address] Parvin, Crystal [address] [place] [address] 09/27/2024 11:00 AM EDT Medication Management [facility] MEDICINE [address] [place] [address] Quoc Bermudez PharmD [address] [place] [address] 10/02/2024 11:00 AM EDT Office Visit [facility] OPTOMETRY [address] [place] [address] Sanjeev, Estefania, OD [address] [place] [address] Scheduled Referrals Name Type Priority Associated Diagnoses Orde r Schedule Referral to Pharmacy CDTM Outpatient Referral Routine Primary hypertension Type 2 diabetes mellitus without complication, without long-term current use of insulin ([facility]) Asthma-COPD overlap syndrome ([facility]) Tobacco use Ordered: 03/01/2024 documented as of [...] complication, without long-term current use of insulin ([facility]) Asthma-COPD overlap syndrome ([facility]) Tobacco use documented in this encounter Additional Health Concerns Assessment Noted Time PHQ-9 Depression Total Score: 0 05/25/19 24 9:46 AM EDT documented as of this encounter Care Teams Hydrant Setter Relationship Specialty Start Date End Date Yeni Willoughby MD [address] [place] [address] PCP - General Family Medicine 02/27/18 Quoc Bermudez PharmD [address] [place] [address] Pharmacist Internal Medicine 02/14/22 [facility] 11/02/23 documented as of this encounter
--- OUTSIDE RECORDS SUMMARY | 2024-06-27 13:00 | XMS_ITS | Encounter Summary ---
Author Organization [employer] Address [address] [place] [address] 7 [place] [address] Care Team Providers Care Hand Knitter Name Role Phone Yeni Willoughby MD Primary Care Provider [phone] Quoc Bermudez PharmD Unavailable [phone] Reason for Referral * Consultation (Routine) - Closed Specialty Diagnoses / Procedures Referred By Contac t Referred To Contact Allergy Diagnoses Pruritic rash Yeni Willoughby MD [address] [place] [address] Phone: tel: fax: Saúl Suarez MD [address] [place] [address] Drive [address] [place] [address] Phone: tel: fax: Referral ID Status Reason Start Date Expiration Date V isits Requested Visits Authorized [id number] Closed Specialty Services Required 01/09/2024 01/08/2025 1 1 Encounter Details Date Type Department Care Team (Late st Contact Info) Description 01/09/2024 Orders Only [facility] MEDICINE [address] [place], [place] [phone] Yeni Willoughby MD [address] [place], [place] [phone] Pruritic rash (Primary Dx) Social History Tobacco [...] Description 07/16/2024 11:15 AM EDT Office Visit [facility] MEDICINE [address] [place] [address] Yeni Willoughby MD [address] [place] [address] 08/20/2024 1:00 PM EDT Office Visit [facility] ADULT DENTAL [address] [place] [address] Parvin, Crystal [address] [place] [address] 09/27/2024 11:00 AM EDT Medication Management [facility] MEDICINE [address] [place] [address] Quoc Bermudez PharmD [address] [place] [address] 10/02/2024 11:00 AM EDT Office Visit [facility] OPTOMETRY [address] [place] [address] Sanjeev, Estefania, OD [address] [place] [address] Scheduled Referrals Name Type Priority Associated Diagnoses [...] documented as of this encounter Care Teams Hand Knitter Relationship Specialty Start Date End Date Yeni Willoughby MD [address] [place] [address] PCP - General Family Medicine 02/27/18 Quoc Bermudez PharmD [address] [place] [address] Pharmacist Internal Medicine 02/14/22 [facility] 11/02/23 documented as of this encounter
--- OUTSIDE RECORDS SUMMARY | 2024-06-27 13:01 | XMS_ITS | Encounter Summary ---
Author Organization [employer] [facility] Address [address] [place] [address] 7 [address] [place] [address] Care Team Providers Care Land Resource Specialist Name Role Phone Yeni Willoughby MD Primary Care Provider [phone] Quoc Bermudez PharmD Unavailable [phone] Encounter Details Date Type Department Care Team (Latest Contact Info) Description 06/26/2018 Abstract [facility] CONVERSIONS Dental, Provider, DDS Social [...] 07/16/2024 11:15 AM EDT Office Visit [facility] MEDICINE [address] [place] [phone] Yeni Willoughby MD [address] [place] [address] 08/20/2024 1:00 PM EDT Office Visit [facility] ADULT DENTAL [address] [place], [place] [phone] Crystal Melendrez [address] [place] [address] 09/27/2024 11:00 AM EDT Medication Management [facility] MEDICINE [address] [place] [phone] Quoc Bermudez, PharmD [address] [place] [address] 10/02/2024 11:00 AM EDT Office Visit [facility] OPTOMETRY [address] [place], [place] [phone] Sanjeev Estefania, OD [address] [place] [address] documented as of this encounter Visit Diagnoses Not on filedocumented in this encounter Care Teams Land Resource Specialist Relationship Specialty Start Date End Date Yeni Willoughby MD [address] [place], [place] [phone] PCP - General Family Medicine 02/27/18 Quoc Bermudez, PharmD [address] [place] [address] [phone] Pharmacist Internal Medicine 02/14/22 [facility] 11/02/23 documented as of this encounter
--- OUTSIDE RECORDS SUMMARY | 2024-06-27 13:01 | XMS_ITS | Encounter Summary ---
Author Organization [employer] Address [address] [facility] 7 [place] [address] Care Team Providers Care Director Of Product Design Name Role Phone Yeni Willoughby MD Primary Care Provider [phone] Quoc Bermudez PharmD Unavailable [phone] Reason for Referral * Medications - Closed Specialty Diagnoses / Procedures Referred By Contac t Referred To Contact Diagnoses Type 2 diabetes mellitus without complication, without long-term current use of insulin ([facility]) Yeni Willoughby MD [address] [place] [address] Phone: tel: fax: Referral ID Status Reason Start Date Expiration Date Visits Re quested Visits Authorized [id number] Closed 1 1 Encounter Details Date Type Department Care Team (Late st Contact Info) Description 10/18/2023 Orders Only [facility] MEDICINE [address] [place] [address] [phone] Yeni Willoughby MD [address] [place] [phone] Hypomagnesemia (Primary Dx); Dehydration; CHEMO (acute kidney [...] Description 07/16/2024 11:15 AM EDT Office Visit [facility] MEDICINE [address] [place] [address] Yeni Willoughby MD [address] [place] [address] 08/20/2024 1:00 PM EDT Office Visit [facility] ADULT DENTAL [address] [place] [address] Crystal Melendrez [address] [place] [address] 09/27/2024 11:00 AM EDT Medication Management [facility] MEDICINE [address] [place] [address] Quoc Bermudez PharmD [address] [place] [address] 10/02/2024 11:00 AM EDT Office Visit [facility] OPTOMETRY [address] [place] [address] Sanjeev, Estefania, OD [address] [place] [address] Scheduled Orders Name Type Priority Associated Diagnoses Orde r Schedule Basic Metabolic Panel Lab Routine Hypomagnesemia Dehydration CHEMO (acute kidney injury) ([facility]) Expected: 10/23/2023 (Approximate), Expires: 10/17/2024 Magnesium Lab Routine Hypomagnesemia Dehydration CHEMO (acute kidney injury) ([facility]) Expected: 10/23/2023 (Approximate), Expires: 10/17/2024 [...] magnesium metabolism Dehydration CHEMO (acute kidney injury) ([facility]) Type 2 diabetes mellitus without complication, without long-term current use of insulin ([facility]) documented in this encounter Additional Health Concerns Assessment Noted Time PHQ-9 Depression Total Score: 0 05/25/19 24 9:46 AM EDT documented as of this encounter Care Teams Director Of Product Design Relationship Specialty Start Date End Date Yeni Willoughby MD [address] [place] [phone] PCP - General Family Medicine 02/27/18 Quoc Bermudez PharmD [address] [place] [address] [phone] Pharmacist Internal Medicine 02/14/22 [facility] 11/02/23 documented as of this encounter
--- OUTSIDE RECORDS SUMMARY | 2024-06-27 13:01 | XMS_ITS | Encounter Summary ---
Author Organization [employer] Address [address] [facility] 7t [place] [address] Care Team Providers Care Merchandise Flow Team Member Name Role Phone Yeni Willoughby MD Primary Care Provider [phone] Quoc Bermudez PharmD Unavailable [phone] Encounter Details Date Type Department Care Team ([facility] Contact Info) Description 11/22/2023 Orders Only [facility] MEDICINE [address] [place], [place] [phone] Yeni Willoughby MD [address] [place], [place] [phone] Hypomagnesemia (Primary Dx); Hypocalcemia Social History Tobacco [...] Description 07/16/2024 11:15 AM EDT Office Visit [facility] MEDICINE [address] [place] [address] Yeni Willoughby MD [address] [place] [address] 08/20/2024 1:00 PM EDT Office Visit [facility] ADULT DENTAL [address] [place] [address] Maycol Melendrezaris [address] [place] [address] 09/27/2024 11:00 AM EDT Medication Management [facility] MEDICINE [address] [place] [address] Quoc Bermudez, PharmD [address] [place] [address] 10/02/2024 11:00 AM EDT Office Visit [facility] OPTOMETRY [address] [place] [address] Estefania Pace, OD [address] [place] [address] Scheduled Orders Name Type Priority Associated Diagnoses [...] EST) Magnesium 2.2 1.6 - 2.6 mg/dL [facility] Blood Venous blood specimen / Unknown 02/06/2024 12:07 PM EST 02/06/2024 1:03 PM EST us Yeni Willoughby MD LAB BLOOD ORDERABLES Final Resul t [facility] [address] [place] [phone] * (ABNORMAL) TSH (01/12/2024 11:55 AM EST) Thyroid Stimulating Hormone 0.05(L) 0.32 - 4.0 uIU/mL [facility] Comment:TSH 3rd Generation ( [facility]) Blood Venous blood specimen / Unknown 01/12/2024 11:55 AM EST 01/12/2024 12:57 PM EST Yeni Willoughby MD LAB BLOOD ORDERABLES Final Resul t Performing Organization Address City/[facility]/ZIP Co de Phone Number [facility] [address] [place] [phone] * T4, Free (01/12/2024 11:55 AM EST) Free T4 (Free Thyroxine) 1.32 0.71 - 1.85 ng/dL [facility] Blood Venous blood specimen / Unknown 01/12/2024 11:55 AM EST 01/12/2024 12:57 PM EST us Yeni Willoughby MD LAB BLOOD ORDERABLES Final Resul t Performing Organization Address [facility] Co de Phone Number [facility] [address] [place] [phone] * (ABNORMAL) Magnesium (01/12/2024 11:55 AM EST) Magnesium 1.3(LL) 1.6 - 2.6 mg/dL [facility] Comment:Critical value for M AG: Results called to and read back by:Naty Rodriguez Person calling: JIMMY Date: 01/12/24 Time: 1414 Blood Venous blood specimen / Unknown 01/12/2024 11:55 AM EST 01/12/2024 12:57 PM EST us Yeni Willoughby MD LAB BLOOD ORDERABLES Final Resul t Performing Organization Address City/[facility]/ZIP Co de Phone Number [facility] [address] [place] [phone] * (ABNORMAL) Basic Metabolic Panel (01/12/2024 11:55 AM EST) Sodium 141 135 - 145 mmol/L [facility] Potassium 4.1 3.3 - 5.1 mmol/L [facility] Chloride 106 96 - 108 mmol/L [facility] Carbon Dioxide 29 22 - 29 mmol/L [facility] Anion Gap 10(L) 12 - 20 [facility] Urea Nitrogen (BUN) 20(H) 9 - 16 mg/dL [facility] Creatinine, Serum 0.99 0.5 - 1.4 mg/dL [facility] Estimated Glomerular Filt Rate 57 [facility] Comment:Chronic Kidney Disea se: Estimated GFR < 60 mL/min/1.79f4Bproyx Kidney Disease: Estimated GFR < 15 mL/min/1.73m2 Glucose 97 60 - 115 mg/dL [facility] Calcium 9.3 8.4 - 10.2 mg/dL [facility] Blood Venous blood specimen / Unknown 01/12/2024 11:55 AM EST 01/12/2024 12:57 PM EST us Yeni Willoughby MD LAB BLOOD ORDERABLES Final Resul t [facility] [address] [place] [phone] documented in this encounter Visit Diagnoses Diagnosis Hypomagnesemia- Primary Disorders of magnesium metabolism Hypocalcemia documented in this encounter Additional Health Concerns Assessment Noted Time PHQ-9 Depression Total Score: 0 05/25/19 24 9:46 AM EDT documented as of this encounter Care Teams Merchandise Flow Team Member Relationship Specialty Start Date End Date Yeni Willoughby MD [address] [place] [address] PCP - General Family Medicine 02/27/18 Quoc Bermudez, RazD [address] [place] [address] Pharmacist Internal Medicine 02/14/22 [facility] 11/02/23 documented as of this encounter
--- OUTSIDE RECORDS SUMMARY | 2024-06-27 13:01 | XMS_ITS | Clinical Summary ---
Author Organization [employer] Address [address] [facility] 7t [place] [address] Care Team Providers Care Mechanic Driver Name Role Phone Yeni Washington MD Primary Care Provider [phone] Quoc Bermudez PharmD Unavailable [phone] Allergies Active Allergy Reactions Criticality Noted Date [...] complication, without long-term current use of insulin ([facility]) TEST BLOOD SUGAR THREE TIMES DAILY [...] complication, without long-term current use of insulin ([facility]) INJECT ONE PEN (=0.75MG) SUBCUTANEOUSLY ONCE [...] (02/14/2024 6:23 AM EST): - following with [facility] - provisional Dx US in Mar 2023 showed coarse heterogenous echotexture - prescribed pancreatic enzyme by GI in the past, not taking currently Assessment & Plan (05/26/2023 12:19 PM EDT): - following with [facility] - provisional Dx US in Mar 2023 showed coarse heterogenous echotexture - trying pancreatic enzyme currently Pulmonary nodules 05/26/2023 Assessment & Plan (11/22/2023 10:08 AM EDT): - followed by [facility] lung cancer screening progam - CT in [...] (05/26/2023 12:23 PM EDT): - followed by [facility] lung cancer screening progam - last CT in August 2022, Lung RADS 2, Multiple 1 mm calcified small granulomas in both lungs. 4 mm pulmonary nodules are stable. No new nodules seen. - continue annual CT scan - continue working on smoking cessation Metabolic dysfunction-associ ated steatotic liver disease (MASLD) 08/28/2022 Assessment & Plan (04/23/2024 11:18 AM EST): - following with [facility] - hx reactive Hep C antibody, negative in 2020 and 2021 - most recent US on 05/08/23 mildly increased echogenicity of liver. - fibrosis stage F0 - FIB4 index 0.96 - continue working on lifestyle modifications Assessment & Plan (02/13/2024 9:27 AM EST): - following with [facility] - hx reactive Hep C antibody, negative in 2020 and 2021 - most recent US on 05/08/23 mildly increased echogenicity of liver. - fibrosis stage F0 - FIB4 index 0.96 - continue working on lifestyle modifications Assessment & Plan (11/22/2023 9:31 AM EDT): - following with [facility] - hx reactive Hep C antibody, negative in 2020 and 2021 - most recent US on 05/08/23 mildly increased echogenicity of liver. - fibrosis stage F0 - FIB4 index 0.96 - continue working on lifestyle modifications Assessment & Plan (08/16/2023 12:34 PM EDT): - following with [facility] - hx reactive Hep C antibody, negative in 2020 and 2021 - most recent US on 05/08/23 mildly increased echogenicity of liver. 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 Hx Graves ophthalmopathy. PVD. Seen by [facility] on 01/03/24 - Last comprehensive [...] retinopathy. Hx Graves ophthalmopathy. PVD. Seen by [facility] on 01/03/24 - Last comprehensive foot [...] in 2009 - Started seeing a new typing checker, Dr. Mccracken, initial visit on 02/08/24. - [...] in 2009 - Started seeing a new typing checker, Dr. Mccracken, initial visit on 02/08/24. - [...] - Pt was referred to a new typing checker and was seen on 02/21/19. - Because she is euthyroid, she was discharged Assessment & Plan (11/22/2023 9:58 AM EDT): - History of Graves' disease - Radioactive iodine ablation in 2009 - Medications: Levothyroxine 125 mcg daily. - last TSH 0.06 on 09/22/23 - Check lab and adjust medication accordingly - Previously seeing typing checker at [facility], then [facility], and was discharged due to her stability and no concern for thyroid cancer. - Of note, patient is on GLP-1 RA Assessment & Plan (08/16/2023 12:39 PM EDT): - History of Graves' disease - Radioactive iodine ablation in 2009 - Medications: Levothyroxine 125 mcg daily. - last TSH 0.05 on 06/21/23 - Check lab and adjust medication accordingly - Previously seeing typing checker at [facility], then [facility], and was discharged due to her stability [...] - Continue current replacement - Previously seeing typing checker at [facility], then [facility], and was discharged due to her stability and no concern for thyroid cancer. >>ASSESSMENT AND PLAN FOR HYPOTHYROIDISM WRITTEN ON 05/25/2023 5:52 AM BY YENI WASHINGTON MD - History of Graves' disease - Radioactive iodine ablation in 2009 - Medications: Levothyroxine 137 mcg daily. - last TSH 0.43 on 06/01/22 - Continue current replacement - Pt was referred to a new typing checker and was seen on 02/21/19. - Because she is euthyroid, she was discharged Assessment & Plan (08/28/2022 11:01 AM EDT): - Medications: Levothyroxine 137 mcg daily. - last TSH 0.43 on 06/01/22 - Continue current replacement - Pt was referred to a new typing checker and was seen on 02/21/19. - Because she is euthyroid, she was discharged. Assessment & Plan (06/13/2022 12:48 PM EDT): - Medications: Levothyroxine 137 mcg daily. - last TSH 3.11 on 07/16/20 - Continue current replacement - Pt was referred to a new typing checker and was seen on 02/21/19. - Because [...] 32; LDL 42 [facility] 12/[facility]/2011 Assessment & Plan (04/23/2024 11:55 [...] - following with sleep medicine clinic at [facility], last seen in May 2023 - home sleep study on 12/15/22, auto PAP 5-20 cm H2O was recommended - recent compliance report shows 100% adherence - continue AutoPAP Assessment & Plan (11/22/2023 9:31 AM EDT): - following with sleep medicine clinic at [facility], last seen in May 2023 - home sleep study on 12/15/22, auto PAP 5-20 cm H2O was recommended - recent compliance report shows 100% adherence - continue AutoPAP Assessment & Plan (08/16/2023 12:31 PM EDT): - following with sleep medicine clinic at [facility], last seen in May 2023 - home sleep study on 12/15/22, auto PAP 5-20 cm H2O was recommended - recent compliance report shows 100% adherence - continue AutoPAP Assessment & Plan (05/26/2023 11:42 AM EDT): - following with sleep medicine clinic at [facility] - home sleep study on 12/15/22, auto [...] Encounters Date Type Department Care Team Description 06/25/2024 Telephone [facility] [address] [place] [address] Yeni Washington MD Lab Orders 06/18/2024 Refill [facility] [address] [place] [address] Yeni Washington MD Controlled type 2 diabetes mellitus with hyperglycemia, without long-term current use of insulin ([facility]) 06/09/2024 Refill [facility] [address], [place] [phone] Yeni Washington MD 06/05/2024 Refill [facility] [address] [place] [address] Yeni Washington MD Chronic low back pain, unspecified back pain laterality, unspecified whether sciatica present 05/31/2024 Telephone [facility] [address] [place], [place] [phone] Ada Swain, RN Results 05/20/2024 Orders Only GENERIC EXTERNAL DATA DEPARTMENT Provider, Generic External Data 05/19/2024 Refill [facility] [address] [place] [address] Yeni Washington MD 05/11/2024 Refill [facility] [address] [place], [place] [phone] Yuridia Kendall MD 05/11/2024 Refill [facility] [address] [place], [place] [phone] Heidy Garza ANP Gastroesophageal reflux disease, unspecified whether esophagitis present 04/23/2024 11:15 AM EST Office Visit [facility] [address] [place] [address] [phone] Yeni Washington MD Type 2 diabetes mellitus [...] Dyspnea, unspecified type 04/23/2024 Travel 04/17/2024 Telephone [facility] [address] [place], [place] [phone] Yeni Washington MD Chart Prep 04/10/2024 Refill [facility] [address], [place] [phone] Yeni Washington MD Controlled type 2 diabetes mellitus without complication, without long-term current use of insulin (CMS/HCC) 04/05/2024 Travel from Last 3 Months Immunizations Name Administration [...] Description 07/16/2024 11:15 AM EDT Office Visit [facility] [address] [place] [address] Yeni Washington MD [address] [place] [address] 08/20/2024 1:00 PM EDT Office Visit [facility] ADULT DENTAL [address] [place] [address] Crystal Melendrez [address] [place] [address] 09/27/2024 11:00 AM EDT Medication Management [facility] [address] [place] [address] Quoc Bermudez, PharmD [address] [place] [address] 10/02/2024 11:00 AM EDT Office Visit [facility] OPTOMETRY [address] [place] [address] Sanjeev, Estefania, OD [address] [place] [address] Health Maintenance Due Date Last Done Comments [...] period is included. Triglycerides 243(H) <150 mg/dL [facility] Comment:Desirable Triglyceri de: less than 150 mg/dLBorderline High Triglyceride 150-199 mg/dLHigh Triglyceride: 200-499 mg/dLVery High Triglyceride: greater than or equal to 5OO mg/dL Cholesterol 97 <200 mg/dL [facility] Comment:Desirable Cholestero l: less than 200 mg/dLBorderline High Cholesterol: 200-239 mg/dLHigh Cholesterol: greater than 239 mg/dL LDL Cholesterol Calculated 14 <100 mg/dL [facility] Comment:Desirable LDL: less than 100 mg/dLNear Optimal/Above Optimal LDL: 110- 129 mg/dLBorderline High LDL: 130-159 mg/dLHigh LDL: 160-189 mg/dLVery High LDL: greater than or equal to 190 mg/dL HDL Cholesterol 35(L) >40 mg/dL [facility] Comment:Desirable HDL: great er than 40 mg/dL Note: This HDL assay may give artificially low results in patients with liver disease. Blood 05/28/2024 12:1 3 PM EDT 05/28/2024 1:15 PM EDT us Yeni Washington MD LAB BLOOD ORDERABLES Final Resul t [facility] [address] [place] [phone] [phone] * BI Mammogram Screening Tomosynthesis Bilateral (05/24/2024 3:00 PM EDT) Anatomical Region Laterality Modality Breast Bilateral Mammography 05/24/2024 3:00 PM EDT Narrative 06/01/2024 3:10 PM EDT ? [facility] ? [address] ?[place] [address] ?[phone] ? Mammography Report ? Signed ? Patient: Barth,Jennifer I ?MR#: [id number] ? : 1965 ?Acct:[id number] ? Age/Sex: 59 / F ?ADM Date: //25 ? Loc: HO.MAMMO ? Attending Dr: Yeni Washington MD ? Ordering Physician: Yeni Washington MD ?Results: 2Benign F ?? indings ? Date of Service: /28/25 ?Follow Up: 1 Year From Orig ?? inal Mammogram ? Procedure(s): MM tomosynthesis screening BI ?? Accession Number(s): [id number] ? cc: Yeni Washington MD ? EXAMINATION: [...] DD/ 1500 ? TD/TT: 05/24/24 1515 ? Car Designer: ? Procedure Note Suraj, Santiago - 06/01/2024 [place] [facility] [address] [place], [place] [phone] Mammography Report Signed Patient: Jennifer Barth IMR#: [id number] : 1965Acct:[id number] Age/Sex: 59 / FADM Date: 05/24/24 Loc: RADHALucioKELLI Attending Dr: Yeni Washington MD Ordering Physician: Yeni Washington MDResults: 2Benign F indings Date of Service: 05/24/24Follow Up: 1 Year From Orig ina Mammogram Procedure(s): MM tomosynthesis screening BI Accession Number(s): [id number] cc: Yeni Washington MD EXAMINATION: MM SCREENING [...] 06/01/24 1507 DD/ 1500 TD/TT: 05/24/24 1515 Car Designer: Yeni Washington MD IMG BI PROCEDURES Edited Result - Final * (ABNORMAL) T3, Total (05/20/2024 10:00 AM EDT) T3, Total 63(A) 76 - 181 ng/dL [facility] Comment:THIS TEST WAS PERFOR MED AT:[email or web address] [place] [phone] GANDHI MD 05/20/2024 10:0 0 AM EDT 05/20/2024 10:00 AM EDT us Generic External Data Provider LAB BLOOD ORDERAB LES Final Result Performing Organization Address [facility]/ZIP Co de Phone Number [facility] [address] [place] [phone] * (ABNORMAL) TSH (05/20/2024 10:00 AM EDT) Pathologist [facility] Thyroid Stimulating Hormone 4.96(H) 0.32 - 4.0 uIU/mL [facility] Comment:Note: A sustained TS H level above 2.5 uIU/mL may warrant further investigation. TSH 3rd Generation ([facility]) 05/20/2024 10:0 0 AM EDT 05/20/2024 10:00 AM EDT us Generic External Data Provider LAB BLOOD ORDERAB LES Final Result Performing Organization Address [facility] de Phone Number [facility] [address] [place] [phone] * T4, Free (05/20/2024 10:00 AM EDT) Free T4 (Free Thyroxine) 1.14 0.71 - 1.85 ng/dL [facility] 05/20/2024 10:0 0 AM EDT 05/20/2024 10:00 AM EDT us Generic External Data Provider LAB BLOOD ORDERAB LES Final Result Performing Organization Address [facility] Co de Phone Number [facility] [address] [place] [phone] * (ABNORMAL) Comprehensive Metabolic Panel (05/20/2024 10:00 AM EDT) Pathologist [facility] Sodium 141 135 - 145 mmol/L [facility] [...] Kidney Disea se: Estimated GFR < 60 mL/min/1.35n2Azhvmn Kidney Disease: Estimated GFR < 15 mL/min/1.73m2 [...] ORDERABLES Final Resul t [facility] [address] [place], [place] [phone] * Albumin, Random Urine W/Creatinine (05/20/2024 9:56 AM EDT) Creatinine, Urine 141.41 mg/dL [facility] Microalbumin Urine 19.0 mg/L [facility] Microalbum Creatinine Ratio Ur 13.4 <30 ug/mg cr [facility] Comment:Albumin/Creatinine R atio Reference Ranges: Normal: < 30 ug/mg creatinine Microalbuminuria: 30 - 300 ug/mg creatinineClinical Albuminuria: > 300 ug/mg creatinine Urine 05/20/2024 9:56 AM EDT 05/20/2024 10:56 AM EDT us Yeni Washington MD LAB URINE ORDERABLES Final Resul t [facility] [address] [place] [phone] [phone] * CT Sinus w/o Contrast (05/20/2024 9:42 AM EDT) Anatomical Region Laterality Modality Computed Tomogra phy 05/20/2024 9:42 AM EDT Narrative 05/20/2024 3:02 PM EDT ? [facility] ?[address] ?[place] [address] ? CT Scan Report ? Signed ? Patient: Barth,Jennifer I ?MR#: [id number] ? : 1965 ?Acct:[id number] ? Age/Sex: 59 / F ?ADM Date: 05/20/24 ? Loc: HO.CT ? Attending Dr: Yeni Washington MD ? Ordering Physician: Yeni Washington MD ?? Date of Service: 05/20/24 ?? Procedure(s): CT sinus wo IV con ?? Accession Number(s): [id number] ? cc: Yeni Washington MD ? Report Number: ?? [id number]: Total DLP = ?? 81.00 mGy-cm ?? [...] DD/ 0942 ? TD/TT: 05/20/24 1021 ? Car Designer: ? Procedure Note Suraj, Santiago - 05/20/[address] [address] [address] Scan Report Signed Patient: Jennifer Barth IMR#: [id number] : 1965Acct:[id number] Age/Sex: 59 / FADM Date: 05/20/24 Loc: HO.CT Attending Dr: Yeni Washington MD Ordering Physician: Yeni Washington MD Date of Service: 05/20/24 Procedure(s): CT sinus wo IV con Accession Number(s): [id number] cc: Yeni Washington MD Report Number: [id number]: Total DLP = 81.00 mGy-cm EXAMINATION: CT [...] 05/20/24 1500 DD/ 0942 TD/TT: 05/20/24 1021 Car Designer: us Yeni Washington MD IMG CT PROCEDURES Final Result * POCT glycosylated hemoglobin (Hgb A1c) (04/23/2024 11:27 AM EST) Pathologist [facility] Hemoglobin A1C 6.0 4.0 - 6.0 % QC Media Lot # [id number] Lot# Expiration Date Blood Capillary blood specimen / Unknown 04/23/2024 11:27 AM EST Yeni Washington MD POINT OF CARE TEST ENTER/EDIT OR DERABLES Final Result * POCT glucose manually resulted (04/23/2024 11:27 AM EST) Pathologist [facility] Glucose Blood, POC 146 60 - 200 mg/dL [employer] Lot # [id number] Lot# Expiration Date Blood Capillary blood specimen / Unknown 04/23/2024 11:27 AM EST Yeni Washington MD POINT OF CARE TEST ENTER/EDIT OR DERABLES Final Result * Hepatitis C Antibody with Reflex to HCV, RNA, Quantitative, Real-Time PCR (02/13/2024 10:03 AM EST) [facility] Hepatitis C Antibody Nonreactive Nonreactive [facility] Comment:Antibodies to HCV no t detected; does not exclude early acuteHCV infection. Blood Venous blood specimen / Unknown 02/13/2024 10:03 AM EST 02/13/2024 11:03 AM EST Yeni Washington MD LAB BLOOD ORDERABLES Final Resul t [facility] [address] [place] [address] [phone] * HIV-1/2 Antigen and Antibodies, Fourth Generation, with Reflexes (04/12/2023 4:03 PM EST) [facility] HIV AB/AG Nonreactive Nonreactive [facility] Comment:HIV-1 p24 Ag and/or HIV-1/HIV-2 Ab not detected.A test result that is nonreactive does not exclude thepossibility of exposure to or infection with HIV-1 and/orHIV-2. Nonreactive results in this assay for individualswith prior exposure to HIV-1 and/or HIV-2 may be due toantigen and antibody levels that are below the limit ofdetection of this assay.The [employer] HIV Ag/Ab Combo assay result andsupplemental assay [...] [facility] Co de Phone Number [facility] [address] [place] [phone] * THINPREP PAP (06/22/2020 6:38 AM EDT) Clinical Information: None given [facility] COMMENT SEE COMMENT [facility]OUNDAT[facility] ON [...] historic and ?? current clinical information. ?? Track Production Engineer : SEE COMMENT [facility] Comment: DMM, CT(ASCP) CT screening location: [address] ??[address] Interpretation/R esult: Negative for intraepithelial lesion or malignancy. [facility] LMP: NONE GIVEN [facility] Prev. BX: NONE GIVEN [facility] Prev. PAP: NONE GIVEN [facility]OUND[facility] ON [facility] SYSTEM SOURCE: None given [facility] Statement Of Adequacy: SEE COMMENT [facility] Comment: Satisfactory for evaluation. Endocervical/transformation zone component present. Age and/or menstrual status not provided 06/22/2020 6:38 AM EDT Yeni Washington MD LAB PATHOLOGY ORDERABLES Final R esult Performing Organization Address [facility] de Phone Number [facility] [address] * HPV mRNA E6/E7 (06/22/2020 6:38 AM EDT) HPV nRNA E6/E7 Not Detected Not Detected [facility] Comment: Methodology: [employer] Merchandiser Development-Mediated Amplification This assay detects E6/E7 viral messenger RNA (mRNA) from 14 high-risk HPV types (16,18,31,33,35,39,45,51,52,56,58,59,66,68). ? The analytical performance characteristics of this assay have been determined by [employer]. The modifications have not been cleared or approved by the FDA. This assay has been validated pursuant to the CLIA regulations and is used for clinical purposes. ?? For additional information, please refer to http://education.[employer]/faq/QVP572f0 (This link if provided for information/ educational purposes only.) 06/22/2020 6:38 AM EDT Yeni Washington MD LAB BLOOD ORDERABLES Final Resul t Performing Organization Address [facility] de Phone Number [facility] Counts include 234 beds at the [facility] Anywhere [address] from Last 3 Months or Most Recently Relevant to Health Maintenance Insurance [facility] ONE CARE < 65 DENTAL - [facility] Care Teams Mechanic Driver Relationship Specialty Start Date End Date Yeni Washington MD [address] [place], [place] PCP - General Family Medicine 02/27/18 Quoc Bermudez, PharmD [address] [place], [place] Pharmacist Internal Medicine 02/14/22 [facility] 11/02/23
--- OUTSIDE RECORDS SUMMARY | 2024-06-27 13:01 | XMS_ITS | Encounter Summary ---
Author Organization [facility] Address [address] [place] [address] 7 [place] [address] Care Team Providers Care Document Control Coordinator Name Role Phone Yeni Willoughby MD Primary Care Provider [phone] Quoc Bermudez PharmD Unavailable [phone] Encounter Details Date Type Department Care Team (Latest Contact Info) Description 08/27/2020 Abstract [facility] CONVERSIONS Dental, Provider, DDS Social [...] Description 07/16/2024 11:15 AM EDT Office Visit [facility] MEDICINE [address] [place] [phone] Yeni Willoughby MD [address] [place] [phone] 08/20/2024 1:00 PM EDT Office Visit [facility] ADULT DENTAL [address] [place] [phone] Crystal Melendrez [address] [place] [address] 09/27/2024 11:00 AM EDT Medication Management [facility] MEDICINE [address] [place] [phone] Quoc Bermudez, PharmD [address] [place] [address] 10/02/2024 11:00 AM EDT Office Visit [facility] OPTOMETRY [address] [place], [place] [phone] Sanjeev, Estefania, OD [address] [place] [address] documented as of this encounter Visit Diagnoses Not on filedocumented in this encounter Care Teams Document Control Coordinator Relationship Specialty Start Date End Date Yeni Willoughby MD [address] [place], [place] [phone] PCP - General Family Medicine 02/27/18 Quoc Bermudez, PharmD [address] [place] [place] [address] [phone] Pharmacist Internal Medicine 02/14/22 [facility] 11/02/23 documented as of this encounter
--- OUTSIDE RECORDS SUMMARY | 2024-06-27 13:01 | XMS_ITS | Encounter Summary ---
Author Organization [employer] Address [address] [facility] 7t [place] [address] Care Team Providers Care Gear Milling Machine Set Up Operator Name Role Phone Yeni Willoughby MD Primary Care Provider [phone] Quoc Bermudez PharmD Unavailable [phone] Reason for Visit * Reason Onset Date Comments Nurse Triage 12/08/2023 Encounter Details Date Type Department Care Team ([facility] st Contact Info) Description 12/08/2023 Telephone [facility] MEDICINE [address] [place] [address] Yeni Willoughby MD 230 [place] [address] Nurse Triage Social History Tobacco Use Types [...] 12/08/2023 10:56 AM EDT Called pt. Via Narrative nougat candy maker helper [id number] Jay. Pt. States that she has been itchy all over herbody x 1 week. Itchiness is worse on neck, arms and on her panty line. Pt. Unsure if it is the medications that she got sent home from [facility] with on 10/26/23 Gabapentin 100mg Three x a day and also Meclizine 25mg 1 tablet 3 times a day as needed. Pt does have rash on neck and hands. Pt denies any itchiness in throat or swelling in throat. Pt denies itchiness on head. I advised that pt. Needs to be seen today or tomorrow in [facility] walk in. Hours provided and pt. States [...] Office Visit [facility] MEDICINE [address] [place] [address] Yeni Willoughby MD [address] [place] [address] 08/20/2024 1:00 PM EDT Office Visit [facility] ADULT DENTAL 230 [place] [address] Parvin Crystal 230 [place] [address] 09/27/2024 11:00 AM EDT Medication Management [facility] MEDICINE 230 [place] [address] Quoc Bermudez, PharmD [address] [place] [address] 10/02/2024 11:00 AM EDT Office Visit [facility] OPTOMETRY [address] [place] [address] Estefania Pace, JACQUELINE 230 [place] [address] documented as of this encounter Goals Goal [...] documented as of this encounter Care Teams Gear Milling Machine Set Up Operator Relationship Specialty Start Date End Date Yeni Willoughby MD 230 [place] [address] PCP - General Family Medicine 02/27/18 Quoc Bermudez PharmD 230 [place] [address] Pharmacist Internal Medicine 02/14/22 [facility] 11/02/23 documented as of this encounter
--- OUTSIDE RECORDS SUMMARY | 2024-06-27 13:01 | XMS_ITS | Encounter Summary ---
Author Organization [employer] Address [address] [facility] 7t [place] [address] Care Team Providers Care Assessment Counselor Name Role Phone Yeni Willoughby MD Primary Care Provider [phone] Quoc Bermudez PharmD Unavailable [phone] Reason for Visit * Reason Comments Med Refill Encounter Details Date Type Department Care Team ([facility] st Contact Info) Description 06/05/2024 Refill [facility] MEDICINE 230 [place], [place] [phone] Yeni Willoughby MD 230 [place], [place] [phone] Chronic low back pain, unspecified back pain [...] Description 07/16/2024 11:15 AM EDT Office Visit [facility] MEDICINE [address] [place] [address] Yeni Willoughby MD [address] [place] [address] 08/20/2024 1:00 PM EDT Office Visit [facility] ADULT DENTAL [address] [place] [address] Crystal Melendrez [address] [place] [address] 09/27/2024 11:00 AM EDT Medication Management [facility] MEDICINE [address] [place] [address] Quoc Bermudez, PharmD 230 [place] [address] 10/02/2024 11:00 AM EDT Office Visit [facility] OPTOMETRY [address] [place] [address] Estefania Pace, JACQUELINE 230 [place] [address] documented as of this encounter Goals Goal [...] documented as of this encounter Care Teams Assessment Counselor Relationship Specialty Start Date End Date Yeni Willoughby MD 230 [place] [address] PCP - General Family Medicine 02/27/18 Quoc Bermudez PharmD 230 [place] [address] Pharmacist Internal Medicine 02/14/22 [facility] 11/02/23 documented as of this encounter
--- OUTSIDE RECORDS SUMMARY | 2024-06-27 13:01 | XMS_ITS | Encounter Summary ---
Author Organization [employer] Address [address] [facility] 7t [place] [address] Care Team Providers Care Enamel Burner Name Role Phone Yeni Willoughby MD Primary Care Provider [phone] Quoc Bermudez PharmD Unavailable [phone] Encounter Details Date Type Department Care Team ([facility] Contact Info) Description 06/21/2023 Orders Only [facility] MEDICINE 230 [place], [place] [phone] Yeni Willoughby MD 230 [place], [place] [phone] Social History Tobacco Use Types Packs/Day Years [...] Description 07/16/2024 11:15 AM EDT Office Visit [facility] MEDICINE [address] [place] [address] Yeni Willoughby MD [address] [place] [address] 08/20/2024 1:00 PM EDT Office Visit [facility] ADULT DENTAL [address] [place] [address] Parvin, Crystal [address] [place] [address] 09/27/2024 11:00 AM EDT Medication Management [facility] MEDICINE [address] [place] [address] Quoc Bermudez, PharmD [address] [place] [address] 10/02/2024 11:00 AM EDT Office Visit [facility] OPTOMETRY [address] [place] [address] Estefania Pace OD 230 [place] [address] documented as of this encounter Goals Goal [...] documented as of this encounter Care Teams Enamel Burner Relationship Specialty Start Date End Date Yeni Willoughby MD 230 [place] [address] PCP - General Family Medicine 02/27/18 Quoc Bermudez PharmD [address] [place] [address] Pharmacist Internal Medicine 02/14/22 [facility] 11/02/23 documented as of this encounter
--- OUTSIDE RECORDS SUMMARY | 2024-06-27 13:01 | XMS_ITS | Encounter Summary ---
Author Organization [employer] Address 75 [facility] 7t [place] [address] Care Team Providers Care Outer Diameter Technician Name Role Phone Yeni Willoughby MD Primary Care Provider [phone] Quoc Bermudez PharmD Unavailable [phone] Encounter Details Date Type Department Care Team ([facility] st Contact Info) Description 06/03/2022 Orders Only [facility] MEDICINE [address] [place] [address] Yeni Willoughby MD [address] [place] [address] Hypomagnesemia (Primary Dx); Lesion of parotid gland; [...] Description 07/16/2024 11:15 AM EDT Office Visit [facility] MEDICINE [address] [place] [address] Yeni Willoughby MD 230 [place] [address] 08/20/2024 1:00 PM EDT Office Visit [facility] ADULT DENTAL 230 [place] [address] Parvin, Crystal [address] [place] [address] 09/27/2024 11:00 AM EDT Medication Management [facility] MEDICINE [address] [place] [address] Quoc Bermudez, PharmD [address] [place] [address] 10/02/2024 11:00 AM EDT Office Visit [facility] OPTOMETRY [address] [place] [address] Sanjeev, Estefania, OD 230 [place] [address] documented as of this encounter Goals Goal [...] documented as of this encounter Care Teams Outer Diameter Technician Relationship Specialty Start Date End Date Yeni Willoughby MD [address] [place] [address] PCP - General Family Medicine 02/27/18 Quoc Bermudez, PharmD [address] [place] [address] Pharmacist Internal Medicine 02/14/22 [facility] 11/02/23 documented as of this encounter
--- OUTSIDE RECORDS SUMMARY | 2024-06-27 13:01 | XMS_ITS | Encounter Summary ---
Author Organization [employer] Address [address] [place] [address] 7 [place] [address] Care Team Providers Care Quarry Worker Name Role Phone Yeni Willoughby MD Primary Care Provider [phone] Quoc Bermudez PharmD Unavailable [phone] Encounter Details Date Type Department Care Team (Late st Contact Info) Description 04/08/2022 Orders Only [facility] MEDICINE [address] [place] [address] [phone] Yeni Willouhgby MD 230 [place], [place] [phone] Controlled type 2 diabetes mellitus with hyperglycemia, without long-term current use of insulin ([facility]) (Primary Dx); History of Graves' disease Social [...] Office Visit [facility] MEDICINE [address] [place] [address] [phone] Yeni Willoughby MD [address] [place] [address] [phone] 08/20/2024 1:00 PM EDT Office Visit [facility] ADULT DENTAL 230 [place] [address] Parvin, Crystal 230 [place] [address] 09/27/2024 11:00 AM EDT Medication Management [facility] MEDICINE [address] [place] [address] Quoc Bermudez, PharmD 230 [place] [address] 10/02/2024 11:00 AM EDT Office Visit [facility] OPTOMETRY [address] [place] [address] Sanjeev, Estefania, OD 230 [place] [address] documented as of this encounter Visit Diagnoses Diagnosis Controlled type 2 diabetes mellitus with hyperglycemia, without long-term current use of insulin ([facility])- Primary History of Graves' disease documented in this encounter Care Teams Quarry Worker Relationship Specialty Start Date End Date Yeni Willoughby MD [address] [place] [address] PCP - General Family Medicine 02/27/18 Quoc Bermudez, PharmD [address] [place] [address] Pharmacist Internal Medicine 02/14/[address] [facility] 11/02/23 documented as of this encounter
--- OUTSIDE RECORDS SUMMARY | 2024-06-27 13:02 | XMS_ITS | Encounter Summary ---
Author Organization [employer] Address [address] [facility] 7t [place] [address] Care Team Providers Care Senior Receptionist Name Role Phone Yeni Willoughby MD Primary Care Provider [phone] Quoc Bermudez PharmD Unavailable [phone] Reason for Visit * Reason Onset Date Comments Lab Orders 06/25/2024 Encounter Details Date Type Department Care Team ([facility] st Contact Info) Description 06/25/2024 Telephone [facility] MEDICINE [address] [place] [address] Yeni Willoughby MD [address] [place] [address] Lab Orders Social History Tobacco Use Types Packs/Day Years [...] as of this encounter Miscellaneous Notes * Addendum Note - Edwin Lopez RN - 06/25/2024 12:57 PM EDTAddended by: EDWIN LOPEZ on: 06/25/2024 12:57 PM Modules accepted: Orders * Telephone Encounter - Edwin Lopez RN - 06/25/2024 12:51 PM EDT Telephone call to pt using [facility] chain maker machine #[id number] Bee. Pt states she needs TB test and physical to start day program at [facility]. Ordered tspot per standing orders. Advised pt will ask PCP's medical supply technician to schedule physical. Pt verbalized understanding, no further questions. * Telephone Encounter - Jihan Roca - 06/25/2024 11:39 AM EDT Pt walked in requesting tb test for program and physical as well documented in this encounter Plan of Treatment Upcoming Encounters Date Type Department Care Team (Late st Contact Info) Description 07/16/2024 11:15 AM EDT Office Visit [facility] MEDICINE [address] [place] [address] Yein Willoughby MD [address] [place] [address] 08/20/2024 1:00 PM EDT Office Visit [facility] ADULT DENTAL [address] [place] [address] Parvin, Crystal [address] [place] [address] 09/27/2024 11:00 AM EDT Medication Management [facility] MEDICINE [address] [place] [address] Quoc Bermudez, Shannen [address] [place] [address] 10/02/2024 11:00 AM EDT Office Visit [facility] OPTOMETRY [address] [place] [address] Sanjeev, Estefania, OD 230 [place] [address] Scheduled Orders Name Type Priority Associated Diagnoses Orde r Schedule T-SPOT??.TB Lab Routine Tuberculosis screening Expected: 06/25/2024 (Approximate), Expires: 06/25/2025 documented as of this encounter Goals Goal Patient Goal Type Associated Problems Recent Progress Patient-Stated? Author Blood Pressure < 140/90 Blood Pressure 129/100(04/23 11:26 AM EST) No Quoc Bermudez, PharmErin Hemoglobin A1c < 7 Result Component 6(04/23/2024 11:27 AM EST) No Quoc Bermudez PharmD documented as of this encounter Visit Diagnoses Diagnosis Tuberculosis screening Screening examination for pulmonary tuberculosis documented in this encounter Additional Health Concerns Assessment Noted Time PHQ-9 Depression Total Score: 0 05/25/19 24 9:46 AM EDT documented as of this encounter Care Teams Senior Receptionist Relationship Specialty Start Date End Date Yeni Willoughby MD 230 [place] [address] PCP - General Family Medicine 02/27/18 Quoc Bermudez, RazD [address] [place] [address] Pharmacist Internal Medicine 02/14/[address] [facility] 11/02/23 documented as of this encounter
--- OUTSIDE RECORDS SUMMARY | 2024-06-27 13:02 | XMS_ITS | Encounter Summary ---
Author Organization [employer] Address 75 [facility] 7t [place] [address] Care Team Providers Care Occupational Medicine Specialist Name Role Phone Yeni Willoughby MD Primary Care Provider [phone] Quoc Bermudez PharmD Unavailable [phone] Reason for Visit * Reason Comments Med Refill Encounter Details Date Type Department Care Team ([facility] Contact Info) Description 12/18/2022 Refill [facility] MEDICINE [address] [place] [address] Heidy Garza, ANP 230 [place] [address] Social History Tobacco Use Types Packs/Day Years [...] 11:15 AM EDT Office Visit [facility] MEDICINE [address] [place] [address] Yeni Willoughby MD [address] [place] [address] 08/20/2024 1:00 PM EDT Office Visit [facility] ADULT DENTAL [address] [place] [address] Parvin, Crystal [address] [place] [address] 09/27/2024 11:00 AM EDT Medication Management [facility] MEDICINE [address] [place] [address] Quoc Bermudez, PharmD 230 [place] [address] 10/02/2024 11:00 AM EDT Office Visit [facility] OPTOMETRY [address] [place] [address] Estefania Pace, OD 230 [place] [address] documented as of this encounter Goals Goal [...] as of this encounter Care Teams Occupational Medicine Specialist Relationship Specialty Start Date End Date Yeni Willoughby MD 230 [place] [address] PCP - General Family Medicine 02/27/18 Quoc Bermudez, RazD 230 [place] [address] Pharmacist Internal Medicine 02/14/22 [facility] 11/02/23 documented as of this encounter
--- OUTSIDE RECORDS SUMMARY | 2024-06-27 13:02 | XMS_ITS | Encounter Summary ---
Author Organization [email or web address] [facility] Address [address] [facility] 7t [place] [address] Care Team Providers Care Senior Stereo Compiler Team Lead Name Role Phone Yeni Willoughby MD Primary Care Provider [phone] Quoc Bermudez PharmD Unavailable [phone] Reason for Visit * Reason Onset Date Comments Referral 11/04/2022 Encounter Details Date Type Department Care Team ([facility] st Contact Info) Description 11/04/2022 Telephone [facility] MEDICINE [address] [place] [address] Yeni Willoughby MD [address] [place] [address] Referral Social History Tobacco Use Types Packs/Day [...] Description 07/16/2024 11:15 AM EDT Office Visit [facility] MEDICINE [address] [place] [address] Yeni Willoughby MD [address] [place] [address] 08/20/2024 1:00 PM EDT Office Visit [facility] ADULT DENTAL [address] [place] [address] Maycol Melendrezaris [address] [place] [address] 09/27/2024 11:00 AM EDT Medication Management [facility] MEDICINE [address] [place] [address] Quoc Bermudez, PharmD [address] [place] [address] 10/02/2024 11:00 AM EDT Office Visit [facility] OPTOMETRY [address] [place] [address] Sanjeev, Estefania, OD 230 [place] [address] documented as of this encounter Goals Goal [...] as of this encounter Care Teams Senior Stereo Compiler Team Lead Relationship Specialty Start Date End Date Yeni Willoughby MD [address] [place] [address] PCP - General Family Medicine 02/27/18 Quoc Bermudez, PharmD [address] [place] [address] Pharmacist Internal Medicine 02/14/22 [facility] 11/02/23 documented as of this encounter
--- OUTSIDE RECORDS SUMMARY | 2024-06-27 13:02 | XMS_ITS | Encounter Summary ---
Author Organization [employer] Address 75 [facility] 7t [place] [address] Care Team Providers Care Senior Associate Name Role Phone Yeni Willoughby MD Primary Care Provider [phone] Quoc Bermudez PharmD Unavailable [phone] Encounter Details Date Type Department Care Team ([facility] Contact Info) Description 05/26/2023 Orders Only [facility] MEDICINE 230 [place], [place] [phone] Yeni Willoughby MD [address] [place], [place] [phone] Postablative hypothyroidism (Primary Dx); Hypomagnesemia Social History [...] Description 07/16/2024 11:15 AM EDT Office Visit [facility] MEDICINE 230 [place] [address] Yeni Willoughby MD [address] [place] [address] 08/20/2024 1:00 PM EDT Office Visit [facility] ADULT DENTAL [address] [place] [address] Parvin, Crystal [address] [place] [address] 09/27/2024 11:00 AM EDT Medication Management [facility] MEDICINE [address] [place] [address] Quoc Bermudez, PharmD [address] [place] [address] 10/02/2024 11:00 AM EDT Office Visit [facility] OPTOMETRY [address] [place] [address] Estefania Pace, OD 230 [place] [address] documented as of this encounter Goals Goal [...] Stimulating Hormone 0.05(L) 0.32 - 4.0 uIU/mL [facility] Comment:TSH 3rd Generation ( [facility]) Blood Venous blood specimen / Unknown 06/21/2023 11:29 AM EDT 06/21/2023 1:52 PM EDT us Yeni Willoughby MD LAB BLOOD ORDERABLES Final Resul t Performing Organization Address City/[facility]/ZIP Co de Phone Number [facility] [address] [place] [phone] * T4, Free (06/21/2023 11:29 AM EDT) Free T4 (Free Thyroxine) 1.31 0.71 - 1.85 ng/dL [facility] Blood Venous blood specimen / Unknown 06/21/2023 11:29 AM EDT 06/21/2023 1:52 PM EDT us Yeni Willoughby MD LAB BLOOD ORDERABLES Final Resul t Performing Organization Address City/[facility]/ZIP Co de Phone Number [facility] [address] [place] [phone] documented in this encounter Visit Diagnoses Diagnosis Postablative hypothyroidism- Primary Other postablative hypothyroidism Hypomagnesemia Disorders of magnesium metabolism documented in this encounter Additional Health Concerns Assessment Noted Time PHQ-9 Depression Total Score: 0 05/25/19 9:46 AM EDT documented as of this encounter Care Teams Senior Associate Relationship Specialty Start Date End Date Yeni Willoughby MD [address] [place] [address] PCP - General Family Medicine 02/27/18 Quoc Bermudez PharmD [address] [place] [address] Pharmacist Internal Medicine 02/14/22 [facility] 11/02/23 documented as of this encounter
--- OUTSIDE RECORDS SUMMARY | 2024-06-27 13:02 | XMS_ITS | Encounter Summary ---
Author Organization [employer] Address 75 [facility] 7t [place] [address] Care Team Providers Care Air Force Pilot Name Role Phone Yeni Willoughby MD Primary Care Provider [phone] Quoc Bermudez PharmD Unavailable [phone] Encounter Details Date Type Department Care Team ([facility] Contact Info) Description 02/07/2024 Orders Only [facility] MEDICINE 230 [place], [place] [phone] Yeni Willoughby MD 230 [place], [place] [phone] Social History Tobacco Use Types Packs/Day Years [...] Description 07/16/2024 11:15 AM EDT Office Visit [facility] MEDICINE [address] [place] [address] Yeni Willoughby MD [address] [place] [address] 08/20/2024 1:00 PM EDT Office Visit [facility] ADULT DENTAL [address] [place] [address] Parvin, Crystal [address] [place] [address] 09/27/2024 11:00 AM EDT Medication Management [facility] MEDICINE [address] [place] [address] Quoc Bermudez, PharmD [address] [place] [address] 10/02/2024 11:00 AM EDT Office Visit [facility] OPTOMETRY [address] [address] Estefania Pace, OD 230 [place] [address] documented as of this encounter Goals Goal [...] documented as of this encounter Care Teams Air Force Pilot Relationship Specialty Start Date End Date Yeni Willoughby MD 230 [place] [address] PCP - General Family Medicine 02/27/18 Quoc Bermudez PharmD 230 [place] [address] Pharmacist Internal Medicine 02/14/22 [facility] 11/02/23 documented as of this encounter
--- OUTSIDE RECORDS SUMMARY | 2024-06-27 13:02 | XMS_ITS | Encounter Summary ---
Author Organization [employer] Address 75 [facility] 7t [place] [address] Care Team Providers Care System Validation Engineer Name Role Phone Yeni Willoughby MD Primary Care Provider [phone] Quoc Bermudez PharmD Unavailable [phone] Encounter Details Date Type Department Care Team ([facility] Contact Info) Description 02/07/2024 Orders Only [facility] MEDICINE 230 [place], [place] [phone] Yeni Willoughby MD [address] [place] [address] Hyperkalemia (Primary Dx); Stage 3a chronic kidney [...] Description 07/16/2024 11:15 AM EDT Office Visit [facility] MEDICINE [address] [place] [address] Yeni Willoughyb MD [address] [place] [address] 08/20/2024 1:00 PM EDT Office Visit [facility] ADULT DENTAL [address] [place] [address] Crystal Melendrez [address] [place] [address] 09/27/2024 11:00 AM EDT Medication Management [facility] MEDICINE [address] [place] [address] Quoc Bermudez, PharmD [address] [place] [address] 10/02/2024 11:00 AM EDT Office Visit [facility] OPTOMETRY [address] [place] [address] Estefania Pace, JACQUELINE 230 [place] [address] Scheduled Orders Name Type Priority Associated Diagnoses [...] documented as of this encounter Care Teams System Validation Engineer Relationship Specialty Start Date End Date Yeni Willoughby MD 230 [place] [address] PCP - General Family Medicine 02/27/18 Quoc Bermudez PharmD [address] [place] [address] Pharmacist Internal Medicine 02/14/22 [facility] 11/02/23 documented as of this encounter
[2024-06-29 23:09] LABS: TS Negative Control Passed; TS Panel A 0; TS Panel B 0; TS Positive Control Passed; TSpotTB Negative (Negative)
== END 2024-06-27 11:11 | disposition home or self-care (01) ==
LOC: HO.HHCL 11:10
PROVIDERS: Visit Provider Family Medicine
DX: Z11.1 Encounter for screening for respiratory tuberculosis (principal)
CPT/HCPCS: 36415; 86481

== ENCOUNTER 2024-06-28 08:41 | Outpatient (REF) | payer OTHER, SELFPAY ==
--- OUTSIDE RECORDS SUMMARY | 2024-06-28 09:55 | XMS_ITS | Encounter Summary ---
Author Organization [employer] Address [address] [place] [address] Care Team Providers Care Architecture Drafter Name Role Phone Yeni Willoughby MD Primary Care Provider Quoc Bermudez PharmD Unavailable [phone] Encounter Details Date Type Department Care Team ([facility] Contact Info) Description 02/07/2024 Orders Only [facility] MEDICINE [address] [place], [place] [id number] Yeni Willoughby MD [address] [place], [place] [id number] Social History Tobacco Use Types Packs/Day Years [...] Care Team (Late st Contact Info) Description 07/24/2024 10:30 AM EDT Office Visit [facility] MEDICINE [address] [place] [address] Yeni Willoughby MD [address] [place] [address] 08/20/2024 1:00 PM EDT Office Visit [facility] ADULT DENTAL [address] [place] [address] Parvin, Crystal [address] [place] [address] 09/27/2024 11:00 AM EDT Medication Management [facility] MEDICINE [address] [place] [address] Quoc Bermudez, PharmD [address] [place] [address] 10/02/2024 11:00 AM EDT Office Visit [facility] OPTOMETRY [address] [place] [id number] Estefania Pace, OD [address] [place] [address] documented as of this encounter Goals Goal [...] documented as of this encounter Care Teams Architecture Drafter Relationship Specialty Start Date End Date Yeni Willoughby MD [address] [place] [address] PCP - General Family Medicine 02/27/18 Quoc Bermudez PharmD [address] [place] [address] Pharmacist Internal Medicine 02/14/22 [facility] 11/02/23 documented as of this encounter
--- OUTSIDE RECORDS SUMMARY | 2024-06-28 09:55 | XMS_ITS | Clinical Summary ---
Author Organization [employer] Address [address] [facility] 7t [place] [address] Care Team Providers Care Drainage Engineer Name Role Phone Yeni Washington MD Primary Care Provider Quoc Bermudez PharmD Unavailable [phone] Allergies Active Allergy Reactions Criticality Noted Date [...] complication, without long-term current use of insulin ([facility]) TEST BLOOD SUGAR THREE TIMES DAILY 100 [...] complication, without long-term current use of insulin ([facility]) INJECT ONE PEN (=0.75MG) SUBCUTANEOUSLY ONCE A [...] 6:23 AM EST): - following with [facility] - provisional Dx US in Mar 2023 showed coarse heterogenous echotexture - prescribed pancreatic enzyme by GI in the past, not taking currently Assessment & Plan (05/26/2023 12:19 PM EDT): - following with [facility] - provisional Dx US in Mar 2023 showed coarse heterogenous echotexture - trying pancreatic enzyme currently Pulmonary nodules 05/26/2023 Assessment & Plan (11/22/2023 10:08 AM EDT): - followed by [facility] lung cancer screening progam - CT in [...] 12:23 PM EDT): - followed by [facility] lung cancer screening progam - last CT in August 2022, Lung RADS 2, Multiple 1 mm calcified small granulomas in both lungs. 4 mm pulmonary nodules are stable. No new nodules seen. - continue annual CT scan - continue working on smoking cessation Metabolic dysfunction-associ ated steatotic liver disease (MASLD) 08/28/2022 Assessment & Plan (04/23/2024 11:18 AM EST): - following with [facility] - hx reactive Hep C antibody, negative in 2020 and 2021 - most recent US on 05/08/23 mildly increased echogenicity of liver. - fibrosis stage F0 - FIB4 index 0.96 - continue working on lifestyle modifications Assessment & Plan (02/13/2024 9:27 AM EST): - following with [facility] - hx reactive Hep C antibody, negative in 2020 and 2021 - most recent US on 05/08/23 mildly increased echogenicity of liver. - fibrosis stage F0 - FIB4 index 0.96 - continue working on lifestyle modifications Assessment & Plan (11/22/2023 9:31 AM EDT): - following with [facility] - hx reactive Hep C antibody, negative in 2020 and 2021 - most recent US on 05/08/23 mildly increased echogenicity of liver. - fibrosis stage F0 - FIB4 index 0.96 - continue working on lifestyle modifications Assessment & Plan (08/16/2023 12:34 PM EDT): - following with [facility] - hx reactive Hep C antibody, negative in 2020 and 2021 - most recent US on 05/08/23 mildly increased echogenicity of liver. - fibrosis stage F0 - FIB4 index 0.96 - continue working on lifestyle modifications Assessment & Plan (05/26/2023 11:47 AM EDT): - following with [facility] - hx reactive Hep C antibody, [...] eye protection - check an availability of public health social worker or plastic surgeon who can evaluate [...] screen - will check with her [facility] care analyst Chronic sinusitis 06/26/2013 Assessment & Plan (04/30/2024 [...] retinopathy. Hx Graves ophthalmopathy. PVD. Seen by [facility] on 01/03/24 - Last comprehensive [...] retinopathy. Hx Graves ophthalmopathy. PVD. Seen by [facility] on 01/03/24 - Last comprehensive foot exam: [...] in 2009 - Started seeing a new budget analyst, Dr. Mccracken, initial visit on 02/08/24. - [...] in 2009 - Started seeing a new budget analyst, Dr. Mccracken, initial visit on 02/08/24. - [...] - Pt was referred to a new budget analyst and was seen on 02/21/19. - Because she is euthyroid, she was discharged Assessment & Plan (11/22/2023 9:58 AM EDT): - History of Graves' disease - Radioactive iodine ablation in 2009 - Medications: Levothyroxine 125 mcg daily. - last TSH 0.06 on 09/22/23 - Check lab and adjust medication accordingly - Previously seeing budget analyst at [facility], then [facility], and was discharged due to her stability and no concern for thyroid cancer. - Of note, patient is on GLP-1 RA Assessment & Plan (08/16/2023 12:39 PM EDT): - History of Graves' disease - Radioactive iodine ablation in 2009 - Medications: Levothyroxine 125 mcg daily. - last TSH 0.05 on 06/21/23 - Check lab and adjust medication accordingly - Previously seeing budget analyst at [facility], then [facility], and was discharged due to her [...] - Continue current replacement - Previously seeing budget analyst at [facility], then [facility], and was discharged due to her stability and no concern for thyroid cancer. >>ASSESSMENT AND PLAN FOR HYPOTHYROIDISM WRITTEN ON 05/25/2023 5:52 AM BY YENI WASHINGTON MD - History of Graves' disease - Radioactive iodine ablation in 2009 - Medications: Levothyroxine 137 mcg daily. - last TSH 0.43 on 06/01/22 - Continue current replacement - Pt was referred to a new budget analyst and was seen on 02/21/19. - Because she is euthyroid, she was discharged Assessment & Plan (08/28/2022 11:01 AM EDT): - Medications: Levothyroxine 137 mcg daily. - last TSH 0.43 on 06/01/22 - Continue current replacement - Pt was referred to a new budget analyst and was seen on 02/21/19. - Because she is euthyroid, she was discharged. Assessment & Plan (06/13/2022 12:48 PM EDT): - Medications: Levothyroxine 137 mcg daily. - last TSH 3.11 on 07/16/20 - Continue current replacement - Pt was referred to a new budget analyst and was seen on 02/21/19. - Because [...] 32; LDL 42 Continue working [facility] 12/[facility]/2011 Assessment & Plan (04/23/2024 11:55 [...] following with sleep medicine clinic at [facility], last seen in May 2023 - home sleep study on 12/15/22, auto PAP 5-20 cm H2O was recommended - recent compliance report shows 100% adherence - continue AutoPAP Assessment & Plan (11/22/2023 9:31 AM EDT): - following with sleep medicine clinic at [facility], last seen in May 2023 - home sleep study on 12/15/22, auto PAP 5-20 cm H2O was recommended - recent compliance report shows 100% adherence - continue AutoPAP Assessment & Plan (08/16/2023 12:31 PM EDT): - following with sleep medicine clinic at [facility], last seen in May 2023 - home sleep study on 12/15/22, auto PAP 5-20 cm H2O was recommended - recent compliance report shows 100% adherence - continue AutoPAP Assessment & Plan (05/26/2023 11:42 AM EDT): - following with sleep medicine clinic at [facility] - home sleep study on 12/15/22, auto [...] 06/25/2024 Telephone [facility] [address] [place] [address] Yeni Washington MD Lab Orders 06/18/2024 Refill [facility] [address] [place] [address] Yeni Washington MD Controlled type 2 diabetes mellitus with hyperglycemia, without long-term current use of insulin ([facility]) 06/09/2024 Refill [facility] [address] [place], [place] [phone] Yeni Washington MD 06/05/2024 Refill [facility] [address] [place] [address] Yeni Washington MD Chronic low back pain, unspecified back pain laterality, unspecified whether sciatica present 05/31/2024 Telephone [facility] [address] [place], [place] [phone] Ada Swain, RN Results 05/20/2024 Orders Only GENERIC EXTERNAL DATA DEPARTMENT Provider, Generic External Data 05/19/2024 Refill [facility] [address] [place] [address] Yeni Washington MD 05/11/2024 Refill [facility] [address] [place], [place] [phone] Yuridia Kendall MD 05/11/2024 Refill [facility] [address] [place], [place] [phone] Heidy Garza ANP Gastroesophageal reflux disease, unspecified whether esophagitis present 04/23/2024 11:15 AM EST Office Visit [facility] [address] [place] [address] [phone] Yeni Washington MD Type 2 diabetes mellitus [...] 04/17/2024 Telephone [facility] [address] [place], [place] [phone] Yeni Washington MD Chart Prep 04/10/2024 Refill [facility] [address] [place], [place] [phone] Yeni Washington MD Controlled type 2 diabetes [...] Description 07/24/2024 10:30 AM EDT Office Visit [facility] [address] [place] [address] Yeni Washington MD [address] [place] [address] 08/20/2024 1:00 PM EDT Office Visit [facility] [address] [place] [address] Crystal Melendrez [address] [place] [address] 09/27/2024 11:00 AM EDT Medication Management [facility] [address] [place] [address] Quoc Bermudez, PharmD [address] [place] [address] 10/02/2024 11:00 AM EDT Office Visit [facility] [address] [place] [address] Sanjeev, Estefania, OD [address] [place] [address] Health Maintenance Due Date Last Done Comments [...] period is included. Triglycerides 243(H) <150 mg/dL [facility] Comment:Desirable Triglyceri de: less than 150 mg/dLBorderline High Triglyceride 150-199 mg/dLHigh Triglyceride: 200-499 mg/dLVery High Triglyceride: greater than or equal to 5OO mg/dL Cholesterol 97 <200 mg/dL [facility] Comment:Desirable Cholestero l: less than 200 mg/dLBorderline High Cholesterol: 200-239 mg/dLHigh Cholesterol: greater than 239 mg/dL LDL Cholesterol Calculated 14 <100 mg/dL [facility] Comment:Desirable LDL: less than 100 mg/dLNear Optimal/Above Optimal LDL: 110- 129 mg/dLBorderline High LDL: 130-159 mg/dLHigh LDL: 160-189 mg/dLVery High LDL: greater than or equal to 190 mg/dL HDL Cholesterol 35(L) >40 mg/dL [facility] Comment:Desirable HDL: great er than 40 mg/dL Note: This HDL assay may give artificially low results in patients with liver disease. Blood 05/28/2024 12:1 3 PM EDT 05/28/2024 1:15 PM EDT us Yeni Washington MD LAB BLOOD ORDERABLES Final Resul t [facility] [address] [place] [address] [phone] * BI Mammogram Screening Tomosynthesis Bilateral (05/24/2024 3:00 PM EDT) Anatomical Region Laterality Modality Breast Bilateral Mammography 05/24/2024 3:00 PM EDT Narrative 06/01/2024 3:10 PM EDT ? [facility] [place] ? [address] ?[place] [address] ?[phone] ? Mammography Report ? Signed ? Patient: Barth,Jennifer I ?MR#: [id number] ? : 1965 ?Acct:[id number] ? Age/Sex: 59 / F ?ADM Date: //25 ? Loc: HO.MAMMO ? Attending Dr: Yeni Washington MD ? Ordering Physician: Yeni Washington MD ?Results: 2Benign F ?? indings ? Date of Service: /28/25 ?Follow Up: 1 Year From Orig ?? inal Mammogram ? Procedure(s): MM tomosynthesis screening BI ?? Accession Number(s): [id number] ? cc: Yeni Washington MD ? EXAMINATION: [...] DD/ 1500 ? TD/TT: 05/24/24 1515 ? Certified Nutritionist: ? Procedure Note Suraj, Santiago - 06/01/2024 [place] [facility] [address] [place], [place] [phone] Mammography Report Signed Patient: Jennifer Barth IMR#: [id number] : 1965Acct:[id number] Age/Sex: 59 / FADM Date: 05/24/24 Loc: RADHALucioKELLI Attending Dr: Yeni Washington MD Ordering Physician: Yeni Washington MDResults: 2Benign F indings Date of Service: 05/24/24Follow Up: 1 Year From Orig ina Mammogram Procedure(s): MM tomosynthesis screening BI Accession Number(s): [id number] cc: Yeni Washington MD EXAMINATION: MM SCREENING [...] 06/01/24 1507 DD/ 1500 TD/TT: 05/24/24 1515 Certified Nutritionist: Yeni Washington MD IMG BI PROCEDURES Edited Result - Final * (ABNORMAL) T3, Total (05/20/2024 10:00 AM EDT) T3, Total 63(A) 76 - 181 ng/dL [facility] Comment:THIS TEST WAS PERFOR MED AT:[facility] [place] [phone] GANDHI MD 05/20/2024 10:0 0 AM EDT 05/20/2024 10:00 AM EDT us Generic External Data Provider LAB BLOOD ORDERAB LES Final Result Performing Organization Address [facility]/ZIP Co de Phone Number [facility] [address] [place] [phone] * (ABNORMAL) TSH (05/20/2024 10:00 AM EDT) Pathologist [facility] Thyroid Stimulating Hormone 4.96(H) 0.32 - 4.0 uIU/mL [facility] Comment:Note: A sustained TS H level above 2.5 uIU/mL may warrant further investigation. TSH 3rd Generation ([facility]) 05/20/2024 10:0 0 AM EDT 05/20/2024 10:00 AM EDT us Generic External Data Provider LAB BLOOD ORDERAB LES Final Result Performing Organization Address [facility] de Phone Number [facility] [address] [place] [phone] * T4, Free (05/20/2024 10:00 AM EDT) Free T4 (Free Thyroxine) 1.14 0.71 - 1.85 ng/dL [facility] 05/20/2024 10:0 0 AM EDT 05/20/2024 10:00 AM EDT us Generic External Data Provider LAB BLOOD ORDERAB LES Final Result Performing Organization Address [facility] Co de Phone Number [facility] [address] [place] [phone] * (ABNORMAL) Comprehensive Metabolic Panel (05/20/2024 10:00 AM EDT) Pathologist [facility] Sodium 141 135 - 145 mmol/L [facility] Potassium 4.8 3.3 - 5.1 mmol/L [facility] Chloride 106 96 - 108 mmol/L [facility] Carbon Dioxide 26 22 - 29 mmol/L [facility] Anion Gap 14 12 - 20 [facility] Urea Nitrogen (BUN) 26(H) 9 - 16 mg/dL [facility] Creatinine, Serum 1.15 0.5 - 1.4 mg/dL [facility] Estimated Glomerular Filt Rate 48 [facility] Comment:Chronic Kidney Disea se: Estimated GFR < 60 mL/min/1.59v6Aiurou Kidney Disease: Estimated GFR < 15 mL/min/1.73m2 Glucose 88 60 - 115 mg/dL [facility] Calcium 10.0 8.4 - 10.2 mg/dL [facility] Bilirubin, Total 0.9 0.0 - 1.0 mg/dL [facility] Aspartate Amino Transferase 23 5 - 31 U/L [facility] Alanine Aminotransferase 18 0 - 31 U/L [facility] Total Protein 8.3(H) 6.5 - 8.0 g/dL [facility] Albumin Level 4.2 3.5 - 5.0 g/dL [facility] Alkaline Phosphatase 85 39 - 117 U/L [facility] Blood Venous blood specimen / Unknown 05/20/2024 10:00 AM EDT 05/20/2024 10:00 AM EDT us Yeni Washington MD LAB BLOOD ORDERABLES Final Resul t [facility] [address] [place], [place] [phone] * Albumin, Random Urine W/Creatinine (05/20/2024 9:56 AM EDT) Creatinine, Urine 141.41 mg/dL [facility] Microalbumin Urine 19.0 mg/L [facility] Microalbum Creatinine Ratio Ur 13.4 <30 ug/mg cr [facility] Comment:Albumin/Creatinine R atio Reference Ranges: Normal: < 30 ug/mg creatinine Microalbuminuria: 30 - 300 ug/mg creatinineClinical Albuminuria: > 300 ug/mg creatinine Urine 05/20/2024 9:56 AM EDT 05/20/2024 10:56 AM EDT us Yeni Washington MD LAB URINE ORDERABLES Final Resul t [facility] [address] [place] [address] [phone] * CT Sinus w/o Contrast (05/20/2024 9:42 AM EDT) Anatomical Region Laterality Modality Computed Tomogra phy 05/20/2024 9:42 AM EDT Narrative 05/20/2024 3:02 PM EDT ? [facility] ?[address] ?[place] [address] ? CT Scan Report ? Signed ? Patient: Barth,Jennifer I ?MR#: [id number] ? : 1965 ?Acct:[id number] ? Age/Sex: 59 / F ?ADM Date: 05/20/24 ? Loc: HO.CT ? Attending Dr: Yeni Washington MD ? Ordering Physician: Yeni Washington MD ?? Date of Service: 05/20/24 ?? Procedure(s): CT sinus wo IV con ?? Accession Number(s): [id number] ? cc: Yeni Washington MD ? Report Number: ?? [id number]: Total DLP = ?? 81.00 mGy-cm ?? [...] DD/ 0942 ? TD/TT: 05/20/24 1021 ? Certified Nutritionist: ? Procedure Note Suraj, Santiago - 05/20/[address] [address] [address] Scan Report Signed Patient: Jennifer Barth IMR#: [id number] : 1965Acct:[id number] Age/Sex: 59 / FADM Date: 05/20/24 Loc: HO.CT Attending Dr: Yeni Washington MD Ordering Physician: Yeni Washington MD Date of Service: 05/20/24 Procedure(s): CT sinus wo IV con Accession Number(s): [id number] cc: Yeni Washington MD Report Number: [id number]: Total DLP = 81.00 mGy-cm EXAMINATION: CT [...] MD 05/20/2024 03:00 PM EDT Dictated By: aJtinder Carlos MD Signed By: <Electronically signed by Jatinder Carlos MD in OV> 05/20/24 1500 DD/ 0942 TD/TT: 05/20/24 1021 Certified Nutritionist: us Yeni Washington MD IMG CT PROCEDURES Final Result * POCT glycosylated hemoglobin (Hgb A1c) (04/23/2024 11:27 AM EST) Pathologist [facility] Hemoglobin A1C 6.0 4.0 - 6.0 % QC Media Lot # [id number] Lot# Expiration Date Blood Capillary blood specimen / Unknown 04/23/2024 11:27 AM EST Yeni Washington MD POINT OF CARE TEST ENTER/EDIT OR DERABLES Final Result * POCT glucose manually resulted (04/23/2024 11:27 AM EST) Pathologist [facility] Glucose Blood, POC 146 60 - 200 mg/dL [employer] Lot # [id number] Lot# Expiration Date Blood Capillary blood specimen / Unknown 04/23/2024 11:27 AM EST Yeni Washington MD POINT OF CARE TEST ENTER/EDIT OR DERABLES Final Result * Hepatitis C Antibody with Reflex to HCV, RNA, Quantitative, Real-Time PCR (02/13/2024 10:03 AM EST) [facility] Hepatitis C Antibody Nonreactive Nonreactive [facility] Comment:Antibodies to HCV no t detected; does not exclude early acuteHCV infection. Blood Venous blood specimen / Unknown 02/13/2024 10:03 AM EST 02/13/2024 11:03 AM EST Yeni Washington MD LAB BLOOD ORDERABLES Final Resul t [facility] [address] [place] [phone] * HIV-1/2 Antigen and Antibodies, Fourth Generation, with Reflexes (04/12/2023 4:03 PM EST) [facility] HIV AB/AG Nonreactive Nonreactive [facility] Comment:HIV-1 p24 Ag and/or HIV-1/HIV-2 Ab not detected.A test result that is nonreactive does not exclude thepossibility of exposure to or infection with HIV-1 and/orHIV-2. Nonreactive results in this assay for individualswith prior exposure to HIV-1 and/or HIV-2 may be due toantigen and antibody levels that are below the limit ofdetection of this assay.The [employer] HIV Ag/Ab Combo assay result andsupplemental assay results should be interpreted inconjunction with the patient's clinical presentation,history and other laboratory results. If the results areinconsistent with clinical evidence, additional testing issuggested to confirm the result. 04/12/2023 4:03 PM EST 04/12/2023 4:03 PM EST us Generic External Data Provider LAB BLOOD ORDERAB LES Final Result Performing Organization Address City/State/[facility] Co de Phone Number [facility] [address] [place] [phone] * THINPREP PAP (06/22/2020 6:38 AM EDT) Clinical Information: None given [facility] COMMENT SEE COMMENT FOUNDATI ON [...] historic and ?? current clinical information. ?? Senior Inspector : SEE COMMENT [facility] Comment: DMM, CT(ASCP) CT screening location: [address] ??[phone] Interpretation/R esult: Negative for intraepithelial lesion or malignancy. [facility] LMP: NONE GIVEN FOUNDATIO N [...] ORDERABLES Final R esult Performing Organization Address [facility] de Phone Number [facility] [address] * HPV mRNA E6/E7 (06/22/2020 6:38 AM EDT) HPV nRNA E6/E7 Not Detected Not Detected [facility] Comment: Methodology: Desk Top Publisher-Mediated Amplification This assay detects E6/E7 viral messenger RNA (mRNA) from 14 high-risk HPV types (16,18,31,33,35,39,45,51,52,56,58,59,66,68). ? The analytical performance characteristics of this assay have been determined by [employer]. The modifications have not been cleared or approved by the FDA. This assay has been validated pursuant to the CLIA regulations and is used for clinical purposes. ?? For additional information, please refer to http://education.Yatedo/faq/LDJ112l5 (This link if provided for information/ educational purposes only.) 06/22/2020 6:38 AM EDT Yeni Washington MD LAB BLOOD ORDERABLES Final Resul t Performing Organization Address [facility] de Phone Number [facility] Anywhere [address] from Last 3 Months or Most Recently Relevant to Health Maintenance Insurance [facility] ONE CARE < 65 DENTAL - [facility] Care Teams Drainage Engineer Relationship Specialty Start Date End Date Yeni Washington MD [address] [place], [place] PCP - General Family Medicine 02/27/18 Quoc Bermudez, PharmD [address] [place], [place] Pharmacist Internal Medicine 02/14/22 [facility] 11/02/23
--- OUTSIDE RECORDS SUMMARY | 2024-06-28 09:55 | XMS_ITS | Encounter Summary ---
Author Organization [employer] Address [address] [facility] 7t [place] [address] Care Team Providers Care Semaphore Operator Name Role Phone Yeni Willoughby MD Primary Care Provider [phone] Quoc Bermudez PharmD Unavailable [phone] Encounter Details Date Type Department Care Team ([facility] st Contact Info) Description 06/03/2022 Orders Only [facility] [address] [place] [address] Yeni Willoughby MD [address] [place] [address] Hypomagnesemia (Primary Dx); Lesion of parotid gland; [...] Description 07/24/2024 10:30 AM EDT Office Visit [facility] [address] [place] [address] Yeni Willoughby MD [address] [place] [address] 08/20/2024 1:00 PM EDT Office Visit [facility] ADULT D[facility] [address] [place] [address] Parvin, Crystal [address] [place] [address] 09/27/2024 11:00 AM EDT Medication Management [facility] [address] [place] [address] Quoc Bermudez, PharmD [address] [place] [address] 10/02/2024 11:00 AM EDT Office Visit [facility] [address] [place] [address] Sanjeev, Estefania, OD [address] [place] [address] documented as of this encounter Goals Goal [...] documented as of this encounter Care Teams Semaphore Operator Relationship Specialty Start Date End Date Yeni Willoughby MD [address] [place] [phone] PCP - General Family Medicine 02/27/18 Quoc Bermudez, PharmD [address] [place] [phone] Pharmacist Internal Medicine 02/14/22 [facility] 11/02/23 documented as of this encounter
--- OUTSIDE RECORDS SUMMARY | 2024-06-28 09:55 | XMS_ITS | Encounter Summary ---
Author Organization [employer] Address 75 [facility] 7t [place] [address] Care Team Providers Care Career Services Coordinator Name Role Phone Yeni Willoughby MD Primary Care Provider [phone] Quoc Bermudez PharmD Unavailable [phone] Encounter Details Date Type Department Care Team ([facility] Contact Info) Description 05/26/2023 Orders Only [facility] MEDICINE [address] [place], [place] [phone] Yeni Willoughby MD 230 [place], [place] [phone] Postablative hypothyroidism (Primary Dx); Hypomagnesemia Social History [...] Description 07/24/2024 10:30 AM EDT Office Visit [facility] MEDICINE [address] [place] [address] Yeni Willoughby MD 230 [place] [address] 08/20/2024 1:00 PM EDT Office Visit [facility] ADULT DENTAL [address] [place] [address] Parvin, Crystal [address] [place] [address] 09/27/2024 11:00 AM EDT Medication Management [facility] MEDICINE [address] [place] [address] Quoc Bermudez, PharmD 230 [place] [address] 10/02/2024 11:00 AM EDT Office Visit [facility] OPTOMETRY [address] [place] [address] Estefania Pace, OD 230 [place] [address] documented as of this encounter Goals Goal [...] Stimulating Hormone 0.05(L) 0.32 - 4.0 uIU/mL [facility] Comment:TSH 3rd Generation ( [facility]) Blood Venous blood specimen / Unknown 06/21/2023 11:29 AM EDT 06/21/2023 1:52 PM EDT us Yeni Willoughby MD LAB BLOOD ORDERABLES Final Resul t Performing Organization Address City/[facility]/ZIP Co de Phone Number [facility] [address] [place] [phone] * T4, Free (06/21/2023 11:29 AM EDT) Free T4 (Free Thyroxine) 1.31 0.71 - 1.85 ng/dL [facility] Blood Venous blood specimen / Unknown 06/21/2023 11:29 AM EDT 06/21/2023 1:52 PM EDT us Yeni Willoughby MD LAB BLOOD ORDERABLES Final Resul t Performing Organization Address City/[facility]/ZIP Co de Phone Number [facility] [address] [place] [phone] documented in this encounter Visit Diagnoses Diagnosis Postablative hypothyroidism- Primary Other postablative hypothyroidism Hypomagnesemia Disorders of magnesium metabolism documented in this encounter Additional Health Concerns Assessment Noted Time PHQ-9 Depression Total Score: 0 05/25/19 9:46 AM EDT documented as of this encounter Care Teams Career Services Coordinator Relationship Specialty Start Date End Date Yeni Willoughby MD 230 [place] [address] PCP - General Family Medicine 02/27/18 Quoc Bermudez PharmD [address] [place] [address] Pharmacist Internal Medicine 02/14/22 [facility] 11/02/23 documented as of this encounter
--- OUTSIDE RECORDS SUMMARY | 2024-06-28 09:55 | XMS_ITS | Encounter Summary ---
Author Organization [employer] [facility] Address 75 [facility] 7t [place] [address] Care Team Providers Care Product Test Specialist Name Role Phone Yeni Willoughby MD Primary Care Provider [phone] Quoc Bermudez PharmD Unavailable [phone] Reason for Visit * Reason Onset Date Comments Referral 11/04/2022 Encounter Details Date Type Department Care Team ([facility] st Contact Info) Description 11/04/2022 Telephone [facility] MEDICINE [address] [place] [address] Yeni Willoughby MD 230 [place] [address] Referral Social History Tobacco Use Types Packs/Day [...] Description 07/24/2024 10:30 AM EDT Office Visit [facility] MEDICINE [address] [place] [address] Yeni Willoughby MD [address] [place] [address] 08/20/2024 1:00 PM EDT Office Visit [facility] ADULT DENTAL [address] [place] [address] Parvin Crystal [address] [place] [address] 09/27/2024 11:00 AM EDT Medication Management [facility] MEDICINE [address] [place] [address] Quoc Bermudez, PharmD [address] [place] [address] 10/02/2024 11:00 AM EDT Office Visit [facility] OPTOMETRY [address] [place] [address] Sanjeev, Estefania, OD 230 [place] [address] documented as of this encounter Goals Goal [...] documented as of this encounter Care Teams Product Test Specialist Relationship Specialty Start Date End Date Yeni Willoughby MD 230 [place] [address] PCP - General Family Medicine 02/27/18 Quoc Bermudez, PharmD [address] [place] [address] Pharmacist Internal Medicine 02/14/22 [facility] 11/02/23 documented as of this encounter
--- OUTSIDE RECORDS SUMMARY | 2024-06-28 09:55 | XMS_ITS | Encounter Summary ---
Author Organization [employer] Address [address] [place] [address] 7 [place] [address] Care Team Providers Care Mine Development Engineer Name Role Phone Yeni Willoughby MD Primary Care Provider [phone] Quoc Bermudez PharmD Unavailable [phone] Reason for Referral * Consultation (Routine) - Closed Specialty Diagnoses / Procedures Referred By Contac t Referred To Contact Allergy Diagnoses Pruritic rash Ynei Willoughby MD 230 [place] [address] Phone: tel: fax: Saúl Suarez MD [address] [place] [address] Drive [address] [place] [address] Phone: tel: fax: Referral ID Status Reason Start Date Expiration Date V isits Requested Visits Authorized [id number] Closed Specialty Services Required 01/09/2024 01/08/2025 1 1 Encounter Details Date Type Department Care Team (Late st Contact Info) Description 01/09/2024 Orders Only [facility] MEDICINE [address] [place], [place] [phone] Yeni Willoughby MD [address] [place], [place] [phone] Pruritic rash (Primary Dx) Social History Tobacco [...] Description 07/24/2024 10:30 AM EDT Office Visit [facility] MEDICINE [address] [place] [address] Yeni Willoughby MD 230 [place] [address] 08/20/2024 1:00 PM EDT Office Visit [facility] ADULT DENTAL [address] [place] [address] Parvin, Crystal [address] [place] [address] 09/27/2024 11:00 AM EDT Medication Management [facility] MEDICINE [address] [place] [address] Quoc Bermudez PharmD 230 [place] [address] 10/02/2024 11:00 AM EDT Office Visit [facility] OPTOMETRY [address] [place] [address] Sanjeev, Estefania, OD 230 [place] [address] Scheduled Referrals Name Type Priority Associated Diagnoses [...] documented as of this encounter Care Teams Mine Development Engineer Relationship Specialty Start Date End Date Yeni Willoughby MD [address] [place] [address] PCP - General Family Medicine 02/27/18 Quoc Bermudez PharmD [address] [place] [address] Pharmacist Internal Medicine 02/14/22 [facility] 11/02/23 documented as of this encounter
--- OUTSIDE RECORDS SUMMARY | 2024-06-28 09:55 | XMS_ITS | Encounter Summary ---
Author Organization [employer] Address 75 [facility] 7t [place] [address] Care Team Providers Care Cone Machine Operator Name Role Phone Yeni Willoughby MD Primary Care Provider [phone] Quoc Bermudez PharmD Unavailable [phone] Encounter Details Date Type Department Care Team ([facility] Contact Info) Description 11/22/2023 Orders Only [facility] MEDICINE 230 [place], [place] [phone] Yeni Willoughby MD [address] [place], [place] [phone] Hypomagnesemia (Primary Dx); Hypocalcemia Social History Tobacco [...] Description 07/24/2024 10:30 AM EDT Office Visit [facility] MED[facility]INE 230 [place] [address] Yeni Willoughby MD 230 [place] [address] 08/20/2024 1:00 PM EDT Office Visit [facility] ADULT DENTAL [address] [place] [address] Maycol Melendrezaris [address] [place] [address] 09/27/2024 11:00 AM EDT Medication Management [facility] [address] [place] [address] Quoc Bermudez, PharmD [address] [place] [address] 10/02/2024 11:00 AM EDT Office Visit [facility] OPTOMETRY [address] [place] [address] Estefania Pace, OD 230 [place] [address] Scheduled Orders Name Type Priority Associated Diagnoses [...] EST) Magnesium 2.2 1.6 - 2.6 mg/dL [facility] Blood Venous blood specimen / Unknown 02/06/2024 12:07 PM EST 02/06/2024 1:03 PM EST us Yeni Willoughby MD LAB BLOOD ORDERABLES Final Resul t [facility] [address] [place] [phone] * (ABNORMAL) TSH (01/12/2024 11:55 AM EST) Thyroid Stimulating Hormone 0.05(L) 0.32 - 4.0 uIU/mL [facility] Comment:TSH 3rd Generation ( [facility]) Blood Venous blood specimen / Unknown 01/12/2024 11:55 AM EST 01/12/2024 12:57 PM EST Yeni Willoughby MD LAB BLOOD ORDERABLES Final Resul t Performing Organization Address City/[facility]/ZIP Co de Phone Number [facility] [address] [place] [phone] * T4, Free (01/12/2024 11:55 AM EST) Free T4 (Free Thyroxine) 1.32 0.71 - 1.85 ng/dL [facility] Blood Venous blood specimen / Unknown 01/12/2024 11:55 AM EST 01/12/2024 12:57 PM EST us Yeni Willoughby MD LAB BLOOD ORDERABLES Final Resul t Performing Organization Address [facility] Co de Phone Number [facility] [address] [place] [phone] * (ABNORMAL) Magnesium (01/12/2024 11:55 AM EST) Magnesium 1.3(LL) 1.6 - 2.6 mg/dL [facility] Comment:Critical value for M AG: Results called to and read back by:Naty Rodriguez Person calling: JIMMY Date: 01/12/24 Time: 1414 Blood Venous blood specimen / Unknown 01/12/2024 11:55 AM EST 01/12/2024 12:57 PM EST us Yeni Willoughby MD LAB BLOOD ORDERABLES Final Resul t Performing Organization Address City/[facility]/ZIP Co de Phone Number [facility] [address] [place] [phone] * (ABNORMAL) Basic Metabolic Panel (01/12/2024 11:55 AM EST) Sodium 141 135 - 145 mmol/L [facility] Potassium 4.1 3.3 - 5.1 mmol/L [facility] Chloride 106 96 - 108 mmol/L [facility] Carbon Dioxide 29 22 - 29 mmol/L [facility] Anion Gap 10(L) 12 - 20 [facility] Urea Nitrogen (BUN) 20(H) 9 - 16 mg/dL [facility] Creatinine, Serum 0.99 0.5 - 1.4 mg/dL [facility] Estimated Glomerular Filt Rate 57 [facility] Comment:Chronic Kidney Disea se: Estimated GFR < 60 mL/min/1.12y0Owxeap Kidney Disease: Estimated GFR < 15 mL/min/1.73m2 Glucose 97 60 - 115 mg/dL [facility] Calcium 9.3 8.4 - 10.2 mg/dL [facility] Blood Venous blood specimen / Unknown 01/12/2024 11:55 AM EST 01/12/2024 12:57 PM EST us Yeni Willoughby MD LAB BLOOD ORDERABLES Final Resul t [facility] [address] [place] [phone] [phone] documented in this encounter Visit Diagnoses Diagnosis Hypomagnesemia- Primary Disorders of magnesium metabolism Hypocalcemia documented in this encounter Additional Health Concerns Assessment Noted Time PHQ-9 Depression Total Score: 0 05/25/19 24 9:46 AM EDT documented as of this encounter Care Teams Cone Machine Operator Relationship Specialty Start Date End Date Yeni Willoughby MD [address] [place] [address] PCP - General Family Medicine 02/27/18 Quoc Bermudez, RazD [address] [place] [address] Pharmacist Internal Medicine 02/14/22 [facility] 11/02/23 documented as of this encounter
--- OUTSIDE RECORDS SUMMARY | 2024-06-28 09:55 | XMS_ITS | Encounter Summary ---
Author Organization [employer] Address [address] [place] [address] 7 [place] [address] Care Team Providers Care Feather Boner Name Role Phone Yeni Willoughby MD Primary Care Provider [phone] Quoc Bermudez PharmD Unavailable [phone] Encounter Details Date Type Department Care Team (Late st Contact Info) Description 04/08/2022 Orders Only [facility] MEDICINE [address] [place] [address] [phone] Yeni Willoughby MD 230 [place], [place] [phone] Controlled type 2 diabetes mellitus with hyperglycemia, without long-term current use of insulin ([facility]) (Primary Dx); History of Graves' disease [...] Department Care Team (Late Contact Info) Description 07/24/2024 10:30 AM EDT Office Visit [facility] MEDICINE [address] [place] [phone] Yeni Willoughby MD [address] [place], [place] [phone] 08/20/2024 1:00 PM EDT Office Visit [facility] ADULT DENTAL [address] [place] [address] Parvin, Crystal [address] [place] [address] 09/27/2024 11:00 AM EDT Medication Management [facility] MEDICINE [address] [place] [address] Quoc Bermudez, PharmD 230 [place] [address] 10/02/2024 11:00 AM EDT Office Visit [facility] OPTOMETRY [address] [place] [address] Sanjeev, Estefania, OD 230 [place] [address] documented as of this encounter Visit Diagnoses Diagnosis Controlled type 2 diabetes mellitus with hyperglycemia, without long-term current use of insulin ([facility])- Primary History of Graves' disease documented in this encounter Care Teams Feather Boner Relationship Specialty Start Date End Date Yeni Willoughby MD [address] [place] [address] PCP - General Family Medicine 02/27/18 Quoc Bermudez, PharmD [address] [place] [address] Pharmacist Internal Medicine 02/14/22 [facility] 11/02/23 documented as of this encounter
--- OUTSIDE RECORDS SUMMARY | 2024-06-28 09:55 | XMS_ITS | Encounter Summary ---
Author Organization [employer] Address 75 [facility] 7t [place] [address] Care Team Providers Care Maintenance Data Analyst Name Role Phone Yeni Willoughby MD Primary Care Provider [phone] Quoc Bermudez PharmD Unavailable [phone] Encounter Details Date Type Department Care Team ([facility] Contact Info) Description 06/21/2023 Orders Only [facility] MEDICINE [address] [place], [place] [phone] Yeni Willoughby MD [address] [place], [place] [phone] Social History Tobacco Use Types Packs/Day Years [...] 07/24/2024 10:30 AM EDT Office Visit [facility] MEDICINE [address] [place] [address] Yeni Willoughby MD [address] [place] [address] 08/20/2024 1:00 PM EDT Office Visit [facility] ADULT DENTAL [address] [place] [address] Parvin, Cyrstal [address] [place] [address] 09/27/2024 11:00 AM EDT Medication Management [facility] MEDICINE [address] [place] [address] Quoc Bermudez, PharmD [address] [place] [address] 10/02/2024 11:00 AM EDT Office Visit [facility] OPTOMETRY [address] [place] [address] Estefania Pace OD [address] [place] [address] documented as of this encounter Goals Goal [...] documented as of this encounter Care Teams Maintenance Data Analyst Relationship Specialty Start Date End Date Yeni Willoughby MD 230 [place] [address] PCP - General Family Medicine 02/27/18 Quoc Bermudez PharmD [address] [place] [address] Pharmacist Internal Medicine 02/14/22 [facility] 11/02/23 documented as of this encounter
--- OUTSIDE RECORDS SUMMARY | 2024-06-28 09:55 | XMS_ITS | Encounter Summary ---
Author Organization [employer] [facility] Address [address] [place] [address] 7 [place] [address] Care Team Providers Care Airframe Design Engineer Name Role Phone Yeni Willoughby MD Primary Care Provider [phone] Quoc Bermudez PharmD Unavailable Encounter Details Date Type Department Care Team (Latest Contact Info) Description 06/26/2018 Abstract [facility] CONVERSIONS Dental, Provider, DDS Social [...] Department Care Team ( Contact Info) Description 07/24/2024 10:30 AM EDT Office Visit [facility] MEDICINE [address] [place] [address] Yeni Willoughby MD 230 [place] [address] 08/20/2024 1:00 PM EDT Office Visit [facility] ADULT DENTAL 230 [place], [place] [phone] Crystal Melendrez 230 [place] [address] 09/27/2024 11:00 AM EDT Medication Management [facility] MEDICINE [address] [place] [address] Quoc Bermudez, PharmD 230 [place] [address] 10/02/2024 11:00 AM EDT Office Visit [facility] OPTOMETRY [address] [place], [place] [phone] Sanjeev Estefania, OD 230 [place] [address] documented as of this encounter Visit Diagnoses Not on filedocumented in this encounter Care Teams Airframe Design Engineer Relationship Specialty Start Date End Date Yeni Willoughby MD 230 [place], [place] [phone] PCP - General Family Medicine 02/27/18 Quoc Bermudez, PharmD [address] [place] [address] [phone] Pharmacist Internal Medicine 02/14/22 [facility] 11/02/23 documented as of this encounter
--- OUTSIDE RECORDS SUMMARY | 2024-06-28 09:55 | XMS_ITS | Encounter Summary ---
Author Organization [employer] Address 75 [facility] 7t [place] [address] Care Team Providers Care Fiscal Accountant Name Role Phone Yeni Willoughby MD Primary Care Provider [phone] Quoc Bermudez PharmD Unavailable [phone] Reason for Visit * Reason Comments Med Refill Encounter Details Date Type Department Care Team ([facility] Contact Info) Description 12/18/2022 Refill [facility] MEDICINE [address] [place] [address] Heidy Garza, ANP [address] [place] [address] Social History Tobacco Use Types Packs/Day Years [...] Description 07/24/2024 10:30 AM EDT Office Visit [facility] MEDICINE [address] [place] [address] Yeni Willoughby MD [address] [place] [address] 08/20/2024 1:00 PM EDT Office Visit [facility] ADULT DENTAL [address] [place] [address] Parvin, Crystal [address] [place] [address] 09/27/2024 11:00 AM EDT Medication Management [facility] MEDICINE [address] [place] [address] Quoc Bermudez, PharmD [address] [place] [address] 10/02/2024 11:00 AM EDT Office Visit [facility] OPTOMETRY [address] [place] [address] Estefania Pace, OD 230 [place] [address] documented as of this encounter Goals Goal [...] documented as of this encounter Care Teams Fiscal Accountant Relationship Specialty Start Date End Date Yeni Willoughby MD 230 [place] [address] PCP - General Family Medicine 02/27/18 Quoc Bermudez, RazD [address] [place] [address] Pharmacist Internal Medicine 02/14/[address] [facility] 11/02/23 documented as of this encounter
--- OUTSIDE RECORDS SUMMARY | 2024-06-28 09:55 | XMS_ITS | Encounter Summary ---
Author Organization [employer] [facility] Address [address] [place] [address] 7 [place] [address] Care Team Providers Care Service Provider Name Role Phone Yeni Willoughby MD Primary Care Provider [phone] Quoc Bermudez PharmD Unavailable [phone] Encounter Details Date Type Department Care Team (Latest Contact Info) Description 08/27/2020 Abstract [facility] CONVERSIONS Dental, Provider, DDS Social History [...] Care Team ( st Contact Info) Description 07/24/2024 10:30 AM EDT Office Visit [facility] MEDICINE [address] [place] [address] Yeni Willoughby MD [address] [place] [address] 08/20/2024 1:00 PM EDT Office Visit [facility] ADULT DENTAL [address] [place] [address] Crystal Melendrez [address] [place] [address] 09/27/2024 11:00 AM EDT Medication Management [facility] MEDICINE [address] [place] [address] Quoc Bermudez, PharmD 230 [place] [address] 10/02/2024 11:00 AM EDT Office Visit [facility] OPTOMETRY [address] [place], [place] [phone] Sanjeev, Estefania, OD 230 [place] [address] documented as of this encounter Visit Diagnoses Not on filedocumented in this encounter Care Teams Service Provider Relationship Specialty Start Date End Date Yeni Willoughby MD 230 [place], [place] [phone] PCP - General Family Medicine 02/27/18 Quoc Bermudez, PharmD [address] [place] [address] [phone] Pharmacist Internal Medicine 02/14/22 [facility] 11/02/23 documented as of this encounter
--- OUTSIDE RECORDS SUMMARY | 2024-06-28 09:55 | XMS_ITS | Encounter Summary ---
Author Organization [employer] Address 75 [facility] 7t [place] [address] Care Team Providers Care Telephone Operator Receptionist Name Role Phone Yeni Willoughby MD Primary Care Provider [phone] Quoc Bermudez PharmD Unavailable [phone] Reason for Visit * Reason Onset Date Comments Lab Orders 06/25/2024 Encounter Details Date Type Department Care Team ([facility] st Contact Info) Description 06/25/2024 Telephone [facility] MEDICINE [address] [place] [address] Yeni Willoughby MD [address] [place] [address] Lab Orders Social History Tobacco Use Types [...] PM EDT Telephone call to pt using [facility] automobile lights assembler #[id number] Bee. Pt states she needs TB test and physical to start day program at [facility]. Ordered tspot per standing orders. Advised pt will ask PCP's medical biller/coder to schedule physical. Pt verbalized understanding, no further questions. * Telephone Encounter - Jihan Roca - 06/25/2024 11:39 AM EDT Pt walked in requesting tb test for program and physical as well documented in this encounter Plan of Treatment Upcoming Encounters Date Type Department Care Team (Late st Contact Info) Description 07/24/2024 10:30 AM EDT Office Visit [facility] MEDICINE [address] [place] [address] Yeni Willoughby MD [address] [place] [address] 08/20/2024 1:00 PM EDT Office Visit [facility] ADULT DENTAL [address] [place] [address] Parvin, Crystal [address] [place] [address] 09/27/2024 11:00 AM EDT Medication Management [facility] MEDICINE [address] [place] [address] Quoc Bermudez, Shannen [address] [place] [address] 10/02/2024 11:00 AM EDT Office Visit [facility] OPTOMETRY [address] [place] [address] Sanjeev, Estefania, OD 230 [place] [address] Scheduled Orders Name Type Priority Associated Diagnoses [...] documented as of this encounter Care Teams Telephone Operator Receptionist Relationship Specialty Start Date End Date Yeni Willoughby MD [address] [place] [address] PCP - General Family Medicine 02/27/18 Quoc Bermudez, RazD [address] [place] [address] Pharmacist Internal Medicine 02/14/22 [facility] 11/02/23 documented as of this encounter
--- OUTSIDE RECORDS SUMMARY | 2024-06-28 09:55 | XMS_ITS | Encounter Summary ---
Author Organization [employer] Address [address] [facility] 7t [place] [address] Care Team Providers Care Lap Cutter Truer Operator Name Role Phone Yeni Willoughby MD Primary Care Provider [phone] Quoc Bermudez PharmD Unavailable [phone] Reason for Visit * Reason Comments Med Refill Encounter Details Date Type Department Care Team ([facility] st Contact Info) Description 06/05/2024 Refill [facility] MEDICINE [address] [place], [place] [phone] Yeni Willoughby MD [address] [place], [place] [phone] Chronic low back pain, unspecified back pain [...] Description 07/24/2024 10:30 AM EDT Office Visit [facility] MEDICINE [address] [place] [address] Yeni Willoughby MD [address] [place] [address] 08/20/2024 1:00 PM EDT Office Visit [facility] ADULT DENTAL [address] [place] [address] Crystal Melendrez [address] [place] [address] 09/27/2024 11:00 AM EDT Medication Management [facility] MEDICINE [address] [place] [address] Quoc Bermudez, PharmD [address] [place] [address] 10/02/2024 11:00 AM EDT Office Visit [facility] OPTOMETRY [address] [place] [address] Estefania Pace, JACQUELINE 230 [place] [address] documented as of this encounter Goals Goal [...] documented as of this encounter Care Teams Lap Cutter Truer Operator Relationship Specialty Start Date End Date Yeni Willoughby MD [address] [place] [address] PCP - General Family Medicine 02/27/18 Quoc Bermudez PharmD [address] [place] [address] Pharmacist Internal Medicine 02/14/22 [facility] 11/02/23 documented as of this encounter
--- OUTSIDE RECORDS SUMMARY | 2024-06-28 09:55 | XMS_ITS | Encounter Summary ---
Author Organization [employer] Address 75 [facility] 7t [place] [address] Care Team Providers Care Exceptional Children Teacher Assistant Name Role Phone Yeni Willoughby MD Primary Care Provider [phone] Quoc Bermudez PharmD Unavailable [phone] Encounter Details Date Type Department Care Team ([facility] Contact Info) Description 02/07/2024 Orders Only [facility] MEDICINE [address] [place], [place] [phone] Yeni Willoughby MD [address] [place] [address] Hyperkalemia (Primary Dx); Stage 3a chronic kidney [...] 10:30 AM EDT Office Visit [facility] MEDICINE [address] [place] [address] Yeni Willoughby MD [address] [place] [address] 08/20/2024 1:00 PM EDT Office Visit [facility] ADULT DENTAL [address] [place] [address] Crystal Melendrez [address] [place] [address] 09/27/2024 11:00 AM EDT Medication Management [facility] MEDICINE [address] [place] [address] Quoc Bermudez, PharmD [address] [place] [address] 10/02/2024 11:00 AM EDT Office Visit [facility] OPTOMETRY [address] [place] [address] Estefania Pace, JACQUELINE 230 [place] [address] Scheduled Orders Name Type Priority Associated Diagnoses [...] documented as of this encounter Care Teams Exceptional Children Teacher Assistant Relationship Specialty Start Date End Date Yeni Willoughby MD [address] [place] [address] PCP - General Family Medicine 02/27/18 Quoc Bermudez PharmD [address] [place] [address] Pharmacist Internal Medicine 02/14/22 [facility] 11/02/23 documented as of this encounter
--- OUTSIDE RECORDS SUMMARY | 2024-06-28 09:55 | XMS_ITS | Encounter Summary ---
Author Organization [employer] Address 75 [facility] 7 [place] [address] Care Team Providers Care Parts Cataloguer Name Role Phone Yeni Willoughby MD Primary Care Provider [phone] Quoc Bermudez PharmD Unavailable [phone] Reason for Referral * Medications - Closed Specialty Diagnoses / Procedures Referred By Contac t Referred To Contact Diagnoses Type 2 diabetes mellitus without complication, without long-term current use of insulin (CMS/[facility]) Yeni Willoughby MD [address] [place] [address] Phone: tel: fax: Referral ID Status Reason Start Date Expiration Date Visits Re quested Visits Authorized [id number] Closed 1 1 Encounter Details Date Type Department Care Team (Late st Contact Info) Description 10/18/2023 Orders Only [facility] MEDICINE [address] [place] [address] [phone] Yeni Willoughby MD [address] [place] [phone] Hypomagnesemia (Primary Dx); Dehydration; CHEMO (acute kidney [...] Description 07/24/2024 10:30 AM EDT Office Visit [facility] MEDICINE [address] [place] [address] Yeni Willoughby MD [address] [place] [address] 08/20/2024 1:00 PM EDT Office Visit [facility] ADULT DENTAL [address] [place] [address] Crystal Melendrez [address] [place] [address] 09/27/2024 11:00 AM EDT Medication Management [facility] MEDICINE [address] [place] [address] Quoc Bermudez PharmD 230 [place] [address] 10/02/2024 11:00 AM EDT Office Visit [facility] OPTOMETRY [address] [place] [address] Sanjeev, Estefania, OD 230 [place] [address] Scheduled Orders Name Type Priority Associated Diagnoses Orde r Schedule Basic Metabolic Panel Lab Routine Hypomagnesemia Dehydration CHEMO (acute kidney injury) ([facility]) Expected: 10/23/2023 (Approximate), Expires: 10/17/2024 Magnesium Lab Routine Hypomagnesemia Dehydration CHEMO (acute kidney injury) ([facility]) Expected: 10/23/2023 (Approximate), Expires: 10/17/2024 [...] magnesium metabolism Dehydration CHEMO (acute kidney injury) ([facility]) Type 2 diabetes mellitus without complication, without long-term current use of insulin ([facility]) documented in this encounter Additional Health Concerns Assessment Noted Time PHQ-9 Depression Total Score: 0 05/25/19 24 9:46 AM EDT documented as of this encounter Care Teams Parts Cataloguer Relationship Specialty Start Date End Date Yeni Willoughby MD [address] [place] [address] PCP - General Family Medicine 02/27/18 Quoc Bermudez PharmD [address] [place] [address] [phone] Pharmacist Internal Medicine 02/14/22 [facility] 11/02/23 documented as of this encounter
--- OUTSIDE RECORDS SUMMARY | 2024-06-28 09:55 | XMS_ITS | Encounter Summary ---
Author Organization [employer] Address [address] [facility] 7t [place] [address] Care Team Providers Care Sales Department Manager Name Role Phone Yeni Willoughby MD Primary Care Provider [phone] Quoc Bermudez PharmD Unavailable [phone] Reason for Visit * Reason Onset Date Comments Nurse Triage 12/08/2023 Encounter Details Date Type Department Care Team ([facility] st Contact Info) Description 12/08/2023 Telephone [facility] MEDICINE [address] [place] [address] Yeni Willoughby MD [address] [place] [address] Nurse Triage Social History Tobacco Use Types [...] 12/08/2023 10:56 AM EDT Called pt. 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 Pt. States that she has been itchy all over herbody x 1 week. Itchiness is worse on neck, arms and on her panty line. Pt. Unsure if it is the medications that she got sent home from [facility] with on 10/26/23 Gabapentin 100mg Three x a day and also Meclizine 25mg 1 tablet 3 times a day as needed. Pt does have rash on neck and hands. Pt denies any itchiness in throat or swelling in throat. Pt denies itchiness on head. I advised that pt. Needs to be seen today or tomorrow in [facility] walk in. Hours provided and pt. [...] Description 07/24/2024 10:30 AM EDT Office Visit [facility] MEDICINE [address] [place] [address] Yeni Willoughby MD [address] [place] [address] 08/20/2024 1:00 PM EDT Office Visit [facility] ADULT DENTAL [address] [place] [address] Parvin Crystal [address] [place] [address] 09/27/2024 11:00 AM EDT Medication Management [facility] MEDICINE [address] [place] [address] Quoc Bermudez, PharmD [address] [place] [address] 10/02/2024 11:00 AM EDT Office Visit [facility] OPTOMETRY [address] [place] [address] Estefania Pace, JACQUELINE [address] [place] [address] documented as of this encounter Goals Goal [...] documented as of this encounter Care Teams Sales Department Manager Relationship Specialty Start Date End Date Yeni Willoughby MD [address] [place] [address] PCP - General Family Medicine 02/27/18 Quoc Bermudez PharmD [address] [place] [address] Pharmacist Internal Medicine 02/14/22 [facility] 11/02/23 documented as of this encounter
--- OUTSIDE RECORDS SUMMARY | 2024-06-28 09:55 | XMS_ITS | Encounter Summary ---
Author Organization [employer] Address [address] [place] [address] 7 [place] [address] Care Team Providers Care Registry Nurse Name Role Phone Yeni Wliloughby MD Primary Care Provider [phone] Quoc Bermudez PharmD Unavailable [phone] Reason for Referral * Consultation (Routine) - Authorized Specialty Diagnoses / Procedures Referred By Contjuan diego t Referred To Contact Pharmacy Diagnoses Primary hypertension Type 2 diabetes mellitus without complication, without long-term current use of insulin (CMS/HCC) Asthma-COPD overlap syndrome (CMS/HCC) Tobacco use Yeni Willoughby MD [address] [place] [address] Phone: tel: fax: Referral ID Status Reason Start Date Expiration Date Visits Requested Visits Authorized [id number] Authorized Consult and Treat 03/01/2024 03/01/2025 6 6 Encounter Details Date Type Department Care Team (Late st Contact Info) Description 03/01/2024 Orders Only [facility] MEDICINE [address] [place] [address] Yeni Willoughby MD [address] [place], [place] [phone] Primary hypertension (Primary Dx); Type 2 diabetes [...] Description 07/24/2024 10:30 AM EDT Office Visit [facility] MEDICINE [address] [place] [address] Yeni Willoughby MD [address] [place] [address] 08/20/2024 1:00 PM EDT Office Visit [facility] ADULT DENTAL [address] [place] [address] Parvin, Crystal [address] [place] [address] 09/27/2024 11:00 AM EDT Medication Management [facility] MEDICINE [address] [place] [address] Quoc Bermudez PharmD [address] [place] [address] 10/02/2024 11:00 AM EDT Office Visit [facility] OPTOMETRY [address] [place] [address] Sanjeev, Estefania, OD [address] [place] [address] Scheduled Referrals Name Type Priority Associated Diagnoses Orde r Schedule Referral to Pharmacy CDTM Outpatient Referral Routine Primary hypertension Type 2 diabetes mellitus without complication, without long-term current use of insulin ([facility]) Asthma-COPD overlap syndrome ([facility]) Tobacco use Ordered: 03/01/2024 documented as of [...] complication, without long-term current use of insulin ([facility]) Asthma-COPD overlap syndrome ([facility]) Tobacco use documented in this encounter Additional Health Concerns Assessment Noted Time PHQ-9 Depression Total Score: 0 05/25/19 24 9:46 AM EDT documented as of this encounter Care Teams Registry Nurse Relationship Specialty Start Date End Date Yeni Willoughby MD [address] [place] [address] PCP - General Family Medicine 02/27/18 Quoc Bermudez PharmD [address] [place] [address] Pharmacist Internal Medicine 02/14/22 [facility] 11/02/23 documented as of this encounter
[2024-06-28 11:33] LABS: Free T4 (Free Thyroxine) 1.01 ng/dL (0.71-1.85); Thyroid Stimulating Hormone 4.94 uIU/mL (0.32-4.0)
[2024-06-29 05:44] LABS: Triiodothyronine T3 Total 76 ng/dL (76-181)
== END 2024-06-28 08:42 | disposition home or self-care (01) ==
LOC: HO.LAB 08:41
PROVIDERS: PCP Family Medicine; Visit Provider Student in an Organized Health Care Education/Training Program
DX: E89.0 Postprocedural hypothyroidism (principal); E05.00 Thyrotoxicosis with diffuse goiter without thyrotoxic crisis or storm
CPT/HCPCS: 36415; 84439; 84443; 84480; 99212

== ENCOUNTER 2024-06-28 08:41 | Outpatient (AMB) | payer OTHER, SELFPAY ==
[2024-06-28 08:43] VITALS: BP 100/70; PULSE 87; O2SAT 97; BMI 26.3
--- NOTE | 2024-06-28 08:43 | MHC.OFFVIS ---
Vital Signs 06/28/24 08:43 Height 5 ft 4 in Weight 153 lb 0.013 oz BMI 26.3 BP 100/70 Blood Pressure Location Lt brachial Position Sitting Pulse 87 Pulse Source Pulse Oximeter Pulse Oximetry (%) 97 Oxygen Delivery Method Room Air Intake Visit Reasons: Hypothyroidism Intake Note: Patient present today for Hypothyroidism office visit. Char Dust Cleaner And Salvager Required: Yes Char Dust Cleaner And Salvager Language: College Professor Services: Char Dust Cleaner And Salvager Present Char Dust Cleaner And Salvager Name: TAMANNA Fuentes Information Interpreted: non-clinical & clinical Accompanied by: Self / Same As Patient Allergies sulfamethoxazole [From Bactrim] Allergy (Severe, Verified 06/28/24 08:47) Itching trimethoprim [From Bactrim] Allergy (Severe, Verified 06/28/24 08:47) Itching codeine [Codeine] Allergy (Intermediate, Verified 06/28/24 08:47) NAUSEA & VOMITING, vomiting fluoxetine [FLUOXETINE] Allergy (Intermediate, Verified 06/28/24 08:47) NAUSEA & VOMITING ibuprofen [IBUPROFEN] Allergy (Intermediate, Verified 06/28/24 08:47) NAUSEA & VOMITING Sulfa (Sulfonamide Antibiotics) Allergy (Mild, Verified 06/28/24 08:47) itching Medication List - Last Reconciled 06/28/24 by Una Mccracken MD amlodipine 10 mg See Protocol PO DAILY aspirin 81 mg PO DAILY bisacodyl (Dulcolax (bisacodyl)) 10 mg (2 x 5 mg) PO BEDTIME 2 days blood sugar diagnostic As directed cholecalciferol (vitamin D3) 50 mcg PO DAILY clonidine HCl 0.2 mg PO BEDTIME dulaglutide 0.75 mg subcut QWEEK fluticasone propion-salmeterol 250-50 mcg/dose 1 ea inhalation BID gabapentin 100 mg PO TID hydrochlorothiazide 25 mg PO DAILY hydrocortisone 2.5% (Proctosol HC) 1 appl CA BID PRN Lactobac 66-Bifido 4-S.thermo 3 billion cell (Advanced Probiotic-14) 1 cap PO QAM lancets As directed levothyroxine 75 mcg PO DAILY magnesium oxide 400 mg PO BID meclizine 25 mg PO TID metformin ER 1,000 mg PO BID montelukast 10 mg PO BEDTIME omeprazole 20 mg PO BID peg 3350-electrolytes 236-22.74-6.74 -5.86 gram (Golytely) 240 mL PO Q10M 1 day pravastatin 80 mg PO BEDTIME psyllium husk (Reguloid (psyllium husk)) 0.4 grams PO BID spironolactone 25 mg PO DAILY tiotropium bromide 1 cap inhalation DAILY HPI Comments Details: 58-year-old female coming in today for follow up of of hypothyroidism. Patient has history of Graves disease status post radioactive iodine ablation in 2009 now with postablative hypothyroidism. Over the past year in 2023 patient has had consistently low TSH levels ranging anywhere from 0.02-0.24. labs 02/06/2024 show TSH low at 0.06, free T4 normal at 1.26. Dose of levothyroxine has been reduced consistently but TSH remains low. Call with patient's pharmacy: Currently has a prescription for 88 mcg daily , not picked up yet 01/12/24 picked up levothyroxine 100mcg daily 11/22/23 picked up levothyroxine 112 mcg daily 10/19/23 picked up levothyroxine 125 mcg daily 05/02/23 big the levothyroxine 137 mcg daily Labs 02/13/2024 showed TSH low at 0.12, free T4 1.37, total T3 99, TSI antibodies elevated at 337, TSH receptor antibody also elevated at 16.19 02/19/24: Dose of levothyroxine reduced from 100 mcg daily to 88 mcg daily Interval history 03/19/2024: TSH 0.28, free T4 1.34, total T3 81 03/19/2024: Levothyroxine reduced from 88 mcg daily to 75 mcg daily 05/20/24: TSH 4.96, free T4 1.16, total T3 low at 63 reports strict adherence, adminitration reports increased fatigue She also has Graves orbitopathy, says she was discharged from the [facility], has seen Dr Lucio Herbert in the past, was advised surgery , she is interested in getting evaluated for Tepezza, has a lot of teariness we referred her again , she met with Dr. Herbert 01/2024, they have called her back for 1 year follow up, she is not sure why she was not a candidate for Tapazole. I went over her records, seems like she is thought to have mild thyroid eye disease not requiring any active treatment. Patient currently denies heat or cold intolerance, diarrhea or constipation, , palpitation, anxiety, weight changes, mood changes, tremors, increased diaphoresis or dry skin. ?Lost 10 lbs in the past year on Trulicity. Patient denies any difficulty swallowing, pain on swallowing or voice changes or difficulty breathing. Patient denies any history of childhood neck radiation. Denies having ever used lithium, amiodarone or biotin supplements. Patient denies any family history of thyroid cancer. Graves disease in cousin. Physical exam General: sitting comfortably in no acute distress HEENT: normocephalic/atraumatic, EOM intact, exophthalmos noted, very teary eyes Neck: supple, symmetrical, no thyromegaly , no dorsocervical or supraclavicular fat pads Cardiac: normal heart sounds Pulm: normal breath sounds B/L, no added breath sounds Abd: not distended, no tenderness Extremities: no edema, no signs of myxedema Neuro: AAO x3, Speech: normal, no facial droop, moving all 4 extremities Laboratory Tests 05/25/23 06/21/23 09/22/23 10:30 11:29 11:11 TSH 0.06 L 0.05 L 0.06 L Free T4 1.43 1.31 1.41 10/21/23 11/22/23 01/12/24 10:23 10:18 11:55 TSH 0.02 L 0.05 L Free T4 1.28 1.54 1.32 01/30/24 02/06/24 10:20 12:07 TSH 0.24 L 0.06 L Free T4 1.38 1.26 Laboratory Tests 03/19/24 05/20/24 10:22 10:00 TSH 0.28 L 4.96 H Free T4 1.34 1.14 Total T3 81 63 L Laboratory Tests 01/30/24 02/06/24 02/13/24 10:20 12:07 10:03 TSH 0.24 L 0.06 L 0.12 L Free T4 1.38 1.26 1.37 Total T3 99 Thyroid Stim Immunoglob 337 H TSH Receptor Ab 16.19 H [facility] Medical History (Updated 06/21/24 @ 11:49 by JOSE Pike) [place] (obstructive sleep apnea) [place] on CPAP Graves' eye disease Transaminitis History of Graves' disease Pilonidal cyst Substance abuse Nicotine dependence, cigarettes, uncomplicated History of abnormal mammogram Hidradenitis suppurativa Hyperlipidemia Hypertension Surgical History Hx of cataract surgery History of colonoscopy (~2013) History of bunionectomy (~2011) History of axillary surgery (~2013) History of cholecystectomy History of umbilical hernia repair (~2016) Family History Paternal Aunt Breast cancer Mother Cancer of mandible Other [place] (obstructive sleep apnea) Social History Household Members: Children Housing: Apartment Do you presently have visiting nurse or other home services: No Alcohol intake: current Alcohol intake frequency: does not drink Patient Tobacco Use Status: Current everyday Tobacco user Tobacco use type: Cigarette Cigarette Packs Per Day: 0.75 Cigarettes Per Day: 15 Years Smoked: 36 (onset age 19) Substance Use Type: Crack/Cocaine service: No Current occupational status: unemployed Female Reproductive History Menstrual Age of Menarche: 9 Physical Exam Vital Signs: Last Vital Signs Pulse 87 06/28/24 08:43 BP 100/70 06/28/24 08:43 Pulse Ox 97 06/28/24 08:43 Oxygen Delivery Method Room Air 06/28/24 08:43 BMI result Body Mass Index 26.3 Assessment & Plan Assessment & Plan (1) Hypothyroid: Code(s): E03.9 - Hypothyroidism, unspecified Category: Medical Qualifiers: Hypothyroidism type: postablative Qualified Code(s): E89.0 - Postprocedural hypothyroidism Plan: 58-year-old female with past medical history significant for Graves disease status post radioactive iodine ablation in 2009 who is being managed for postablative hypothyroidism. Over the past year her dose of levothyroxine has been reduced consistently TSH was repeatedly coming as low.. Her weight based dose is close to 112 mcg daily. 03/19/2024: TSH 0.28, free T4 1.34, total T3 81 03/19/2024: Levothyroxine reduced from 88 mcg daily to 75 mcg daily 05/20/24: TSH 4.96, free T4 1.16, total T3 low at 63 Back when she was on the 88 mcg daily her TSH was low, so I am not sure if we need to go back to 88 or not. I will repeat labs today to see if she needs up titration of her levothyroxine. Plan: -ordered TSH, free T4 total T3 to be done today., we will reach out with the results and let her know about medication change if needed -continue levothyroxine 75 mcg daily -follow up in 6 months (2) Graves' eye disease: Code(s): E05.00 - Thyrotoxicosis with diffuse goiter without thyrotoxic crisis or storm Category: Medical Plan: Patient also has Graves Graves eye disease.Per my examination she has moderate to severe grade thyroid eye disease, with a clinical activity score of at least least 2. She is interested in getting evaluated for tip has a. She has seen Dr. Herbert in the past and says was advised reconstructive surgery where she does not want surgery. She is interested in medical management. We sent referral to Dr. Mary Kate caicedo cheese office in January 2024 and patient states she had an appointment in now has 1 year follow up for plan. Per ophthalmology notes thyroid eye disease is mild and she is not a candidate for medication but needs better control of thyroid disease. Plan: Regular follow up with Ophthalmology Plan See above Orders: Orders Thyroid Stimulating Hormone Today E89.0 - Postprocedural hypothyroidism Triiodothyronine T3 Total Today E89.0 - Postprocedural hypothyroidism Free T4 (Free Thyroxine) Today E89.0 - Postprocedural hypothyroidism Patient Instructions: Do blood work today, we will call with results and let you know of the dose needs to be adjusted for your thyroid medication. Follow up in 6 months Coding Level of Care Code Est Pt Level 3 (68163) Diagnoses Postablative hypothyroidism E89.0 Hypothyroidism type: postablative Graves' eye disease E05.00
== END 2024-06-28 09:07 | disposition home or self-care (01) ==
LOC: HO.ENCR 08:41
PROVIDERS: PCP Family Medicine; Visit Provider Student in an Organized Health Care Education/Training Program
DX: E89.0 Postprocedural hypothyroidism (principal); E05.00 Thyrotoxicosis with diffuse goiter without thyrotoxic crisis or storm
CPT/HCPCS: 99213

== ENCOUNTER 2024-10-07 09:44 | Outpatient (AMB) | payer OTHER, SELFPAY ==
--- NOTE | 2024-10-07 09:59 | MHC.OFFVIS ---
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, Painter Helper Spray Required: Yes Painter Helper Spray Language: General Agent Name: [id number] Accompanied by: Self / Same As Patient Allergies sulfamethoxazole (From Bactrim) Allergy (Severe, Verified 06/28/24 08:47) Itching trimethoprim (From Bactrim) Allergy (Severe, Verified 06/28/24 08:47) Itching codeine (Codeine) Allergy (Intermediate, Verified 06/28/24 08:47) NAUSEA & VOMITING, vomiting fluoxetine (FLUOXETINE) Allergy (Intermediate, Verified 06/28/24 08:47) NAUSEA & VOMITING ibuprofen (IBUPROFEN) Allergy (Intermediate, Verified 06/28/24 08:47) NAUSEA & VOMITING Sulfa (Sulfonamide Antibiotics) Allergy (Mild, Verified 06/28/24 08:47) itching Medication List - Last Reconciled 10/07/24 by Isidro Arzate MD amlodipine 10 mg See Protocol PO DAILY aspirin 81 mg PO DAILY bisacodyl (Dulcolax (bisacodyl)) 10 mg (2 x 5 mg) PO BEDTIME 2 days blood sugar diagnostic As directed cholecalciferol (vitamin D3) 50 mcg PO DAILY clonidine HCl 0.2 mg PO BEDTIME dulaglutide 0.75 mg subcut QWEEK fluticasone propion-salmeterol 250-50 mcg/dose 1 ea inhalation BID hydrochlorothiazide 25 mg PO DAILY hydrocortisone 2.5% (Proctosol HC) 1 appl VT BID PRN Lactobac 66-Bifido 4-S.thermo 3 billion cell (Advanced Probiotic-14) 1 cap PO QAM lancets As directed levothyroxine orally daily; take 1 tablet Monday to Monday, and 1-1/2 tablet on Sundays metformin ER 1,000 mg PO BID montelukast 10 mg PO BEDTIME omeprazole 20 mg PO BID pravastatin 80 mg PO BEDTIME spironolactone 25 mg PO DAILY HPI Comments Details: Jennifer was referred here for management of her coronary artery disease. History was obtained with help of a framing mechanic. Patient does not recall having a cardiac catheterization 2020 at [facility]. This was done says that few years ago she was having lot of chest pain and shortness of breath. She underwent a invasive cardiac catheterization for the symptoms and showed nonobstructive CAD in all 3 coronary vessels. She has been managed with medications since then she says since then she has lost weight. She is taking all her medications that have been prescribed. Her last LDL is very well optimized. She says sugars also well controlled. Blood pressure is well controlled. Unfortunately she continues to smoke 5-6 cigarettes a day. She says she has been trying to quit completely. She denies any prolonged palpitation irregular heartbeat. Denies worsening shortness of breath, orthopnea, PND. Does not exercise on a regular basis. [facility] Medical History CAD (coronary artery disease) [place] (obstructive sleep apnea) [place] on CPAP Graves' eye disease Transaminitis History of Graves' disease Pilonidal cyst Substance abuse Nicotine dependence, cigarettes, uncomplicated History of abnormal mammogram Hidradenitis suppurativa Hyperlipidemia Hypertension Surgical History Hx of cataract surgery History of colonoscopy (~2013) History of bunionectomy (~2011) History of axillary surgery (~2013) History of cholecystectomy History of umbilical hernia repair (~2016) Family History Paternal Aunt Breast cancer Mother Cancer of mandible Other [place] (obstructive sleep apnea) Social History Household Members: Children Housing: Apartment Do you presently have visiting nurse or other home services: No Alcohol intake: never Patient Tobacco Use Status: Current everyday Tobacco user Tobacco use type: Cigarette Cigarette Packs Per Day: 0.75 Cigarettes Per Day: 15 Years Smoked: 36 (onset age 19) Substance Use Type: Crack/Cocaine service: No Current occupational status: unemployed Female Reproductive History Menstrual Age of Menarche: 9 Review of Systems Const Denies chills, Denies fatigue, Denies fever(s), Denies frequent falls, Denies weakness, Denies weight gain and Denies weight loss Eyes Reports exophthalmos ENT Denies dizziness Card Denies chest pain, Denies leg edema, Denies lightheadedness, Denies palpitations, Denies dyspnea, Denies dyspnea on exertion and Denies orthopnea Resp Denies cough, Denies dyspnea and Denies dyspnea on exertion GI Denies bloating and Denies change in bowel habits Musc Denies muscle weakness, Denies numbness and Denies tingling Neuro Denies dizziness, Denies frequent falls, Denies numbness, Denies tingling and Denies weakness Endo Denies fatigue and Denies palpitations Physical Exam Vital Signs: Last Vital Signs Pulse 73 10/07/24 10:00 BP 100/60 10/07/24 10:00 BMI result Body Mass Index 25.8 Const General: cooperative, comfortable, no acute distress, alert and awake Nutritional Appearance: average body habitus Orientation/consciousness: patient oriented x3 Limitations: no limitations HEENT Head: Yes normocephalic and Yes atraumatic Eyes General: dysmorphic (Exophthalmos noted) Resp Effort & Inspection: normal respiratory effort Auscultation: clear to auscultation bilaterally Cardio Jugular venous distension: no JVD Rate: regular rate Rhythm: regular rhythm Heart sounds: S1 normal heart sound present, S2 normal heart sound present, no click, no gallops, no murmurs and no rubs Bruits: no carotid bruits GI Auscultation: normal bowel sounds Skin General skin exam: no rashes or lesions noted Neuro General: patient oriented x3 and no focal motor deficits Extrem General: Yes no clubbing, cyanosis or edema Office Procedures EKG Details: EKG shows normal sinus rhythm with low-voltage QRS otherwise normal EKG 30226-[id number], Complete Assessment & Plan Assessment & Plan (1) CAD (coronary artery disease): Comment: Noninvasive coronary artery disease by invasive cardiac catheterization in 2020 Code(s): I25.10 - Atherosclerotic heart disease of [place] coronary artery without angina pectoris Category: Medical Plan: Nonobstructive CAD by cardiac catheterization 2020. Since then it seems like she has lost weight. She is more active in his currently not having any exertional symptoms of chest pain or shortness of breath. She is doing well. She is taking all her medications. Importance of compliance with medication was discussed. Continue lifelong aspirin therapy. Continue aggressive lipid modification, her last LDL is very well optimized on current statin therapy and continue the same. Target goal LDL less than 60 mg/dL. As per her her diabetes under well control as well. Continue to participate in current medical therapy. Goal hemoglobin A1c less than 7%. Blood pressure is currently well optimized. Target goal blood pressure less than 130/84. Low-salt diet was discussed advised to monitor blood pressure at home maintain a log. She is encouraged to completely quit smoking. We discussed about various options. She might be interested in restarting her nicotine patches. She wants to think about it. Importance of complete smoking cessation was advised and she understands. She had also advised to participate in increasing aerobic activity. She says she is going to start doing that. No current workup is indicated. She is advised to call me with any new symptoms. Will follow up in the clinic in 1 year's time, sooner p.r.n.. Thank you for allowing me to partake in her care Coding Level of Care Code New Pt Level 4 (07191) Complex EM visit Add On G2211 Diagnoses CAD (coronary artery disease) I25.10 CPT Codes EKG - CPT: 63435-Ahzwrvnfixsnzhpjz, Complete ([id number])
[2024-10-07 10:00] VITALS: BP 100/60; PULSE 73; BMI 25.8
--- OUTSIDE RECORDS SUMMARY | 2024-10-07 10:15 | XMS_ITS | Encounter Summary ---
Author Organization [employer] Address [address] [facility] 7t [place] [address] Care Team Providers Care Buttermaker Helper Name Role Phone Yeni Willoughby MD Primary Care Provider [phone] Quoc Bermudez PharmD Unavailable [phone] Reason for Visit * Reason Comments Med Refill Encounter Details Date Type Department Care Team ([facility] st Contact Info) Description 10/04/2024 Refill [facility] PEDS [address] [place], [place] [phone] Yeni Willoughby MD [address] [place] [address] Social History Tobacco Use Types Packs/Day Years Used Date Smoking Tobacco: Every Day Cigarettes 0.5 30 Passive Smoke Exposure: Current Smokeless Tobacco: Never Alcohol Use Standard Drinks/Week Comments Not Currently 0 (1 standard drink = 0.6 oz pur e alcohol) Depression Answer Date Recorded Patient Health Questionnaire-9 Score 0 07/24/2024 Patient Health Questionnaire-9 Score 0 07/24/2024 Last PHQ-9: Questionnaire Data Not on file 0 07/24/2024 Housing Stability Answer Date Recorded What is your housing situation today? I have danny gross 07/24/[address] you li ve. Do you have problems with any of the following? None of the above 07/24/2024 Food Insecurity Answer Date Recorded Within the past 12 months, y ou worried that your food would run out before you got money to buy more: Sometimes True 2024 Within the past 12 months,th e food you bought just didn't last and you didn't have enough money to get more: Sometimes True 07/24/2024 Transportation Answer Date Recorded In the past 12 months, has l ack of transportation kept you from medical appts, meetings, work or from getting things needed for daily living? No 12/14/2022 Utilities Answer Date Recorded In the past 12 months, has t he electric, gas, oil or water company threatened to shut off services in your home? No 07/24/2024 Depression Answer Date Recorded Patient Health Questionnaire-2 Score 0 07/24/2024 Internet Access Answer Date Recorded Internet Access [...] Care Team (Late st Contact Info) Description 10/10/2024 10:30 AM EDT Medication Management [facility] MEDICINE [address] [place] [address] Quoc Bermudez, PharmD [address] [place] [address] 10/24/2024 11:00 AM EDT Office Visit [facility] MEDICINE [address] [place] [address] Yeni Willoughby MD [address] [place] [address] 11/08/2024 9:00 AM EDT Office Visit [facility] ADULT DENTAL [address] [place] [address] Andrew Servin DDS [address] [place] [address] 03/07/2025 1:00 PM EST Office Visit [facility] ADULT DENTAL [address] [place] [address] Crystal Melendrez [address] [place] [address] documented as of this encounter Goals Goal Patient Goal Type Associated Problems Recent Progress Patient-Stated? Author Blood Pressure < 140/90 Blood Pressure 114/70(2024 12:51 PM EDT) No Quoc Bermudez PharmD Hemoglobin A1c < 7 Result Component 5.9( 10:37 AM EDT) No Quoc Bermudez PharmD documented as of this encounter Visit Diagnoses Not on filedocumented in this encounter Additional Health Concerns Assessment Noted Time PHQ-9 Depression Total Score: 0 07/25/19 25 10:29 AM EDT documented as of this encounter Care Teams Buttermaker Helper Relationship Specialty Start Date End Date Yeni Willoughby MD [address] [place] [address] PCP - General Family Medicine 02/27/18 Quoc Bermudez PharmD [address] [place] [address] Pharmacist Internal Medicine 02/14/22 [facility] 11/02/23 documented as of this encounter
== END 2024-10-07 10:58 | disposition home or self-care (01) ==
LOC: HO.HCS 09:45
PROVIDERS: PCP Family Medicine; Visit Provider Internal Medicine Cardiovascular Disease
DX: I25.10 Atherosclerotic heart disease of native coronary artery without angina pectoris (principal)
CPT/HCPCS: 93010; 99204; G2211

== ENCOUNTER → 2024-10-07 09:44 | Outpatient (BNVA) | payer OTHER, SELFPAY | PROVIDERS: PCP Family Medicine; Visit Provider Internal Medicine Cardiovascular Disease | DX: I25.10 Atherosclerotic heart disease of native coronary artery without angina pectoris (principal) | CPT/HCPCS: 93005; 99202 ==

== ENCOUNTER 2024-10-30 12:27 | Outpatient (REF) | payer OTHER, SELFPAY ==
--- NOTE | ~2024-10-30 | XR_ITS ---
EXAMINATION: XR LUMBOSACRAL SPINE CLINICAL INFORMATION: mid line tenderness, L1 COMPARISON: October 24, 2016. TECHNIQUE: AP and lateral views. FINDINGS: S-shaped curvature of the thoracolumbar spine. Marginal osteophyte formation and endplate sclerosis decreased intervertebral disc height at multiple levels of the axial skeleton pronounced at L4-5 and L5-S1 with associated vacuum phenomenon. Grade 1 retrolisthesis L3-4 and likely L4-5. No acute cortical disruption. No lytic or blastic lesions. Vascular calcifications, aorta and iliac arteries. Multiple vascular clips in the right hemiabdomen. XR/XR lumbar spine 2-3V IMPRESSION: Multilevel thoracolumbar spondylosis pronounced at L4-5 and L5-S1 with levoconvex scoliosis. Overall worsening since prior examination. Electronically signed by: Dev Crane MD 10/30/2024 01:06 PM EDT
--- NOTE | ~2024-10-30 | CT_ITS ---
CLINICAL HISTORY: F17.210 - Nicotine dependence, cigarettes, uncomplicated CT lung cancer screening (LDCT) Comparison: CT/MD/SR - CT LUNG SCREENING - 10/17/23 15:[address]/REG/MD/SR - CT LUNG SCREENING - 09/21/22 09:22 EDT Technique: Axial CT images of the chest using low-dose technique. Referring provider counseled the patient on shared decision-making for LDCT screening. Additional counseling was provided on smoking cessation. Effective radiation dose total: DLP 35.4 mGycm, CTDIvol 1.2 mGy. Findings: Lung: Stable minimal centrilobular emphysema. No acute process. No suspicious pleural disease. Perifissural micronodule of the right minor fissure on series 4, image 72 is stable. Right middle and bilateral lower lobes benign calcified granulomata unchanged. Left upper lobe new micronodules anteriorly on image 56 and image 62, stable 4 mm nodule on image 73. Coronary artery calcifications: Stable [id number] Limited upper abdomen: Unremarkable Other: None IMPRESSION: LungRADS 2 - Benign Appearance: Continue annual screening with low dose Chest CT in 12 months. ##L2## This document has been electronically signed by: Sade Andre MD on 10/31/2024 09:54:56
--- OUTSIDE RECORDS SUMMARY | 2024-10-30 14:58 | XMS_ITS | Encounter Summary ---
Author Organization [employer] Address [address] [place] [address] 7 [place] [address] Care Team Providers Care Call Center Team Leader Name Role Phone Yeni Willoughby MD Primary Care Provider [phone] Quoc Bermudez PharmD Unavailable [phone] Reason for Referral * Consultation (Routine) - Authorized Specialty Diagnoses / Procedures Referred By Contjuan diego t Referred To Contact Pharmacy Diagnoses Primary hypertension Type 2 diabetes mellitus without complication, without long-term current use of insulin (CMS/HCC) Asthma-COPD overlap syndrome (CMS/HCC) Tobacco use Yeni Willoughby MD [address] [place] [address] Phone: tel: fax: Referral ID Status Reason Start Date Expiration Date Visits Requested Visits Authorized [id number] Authorized Consult and Treat 03/01/2024 03/01/2025 6 6 Encounter Details Date Type Department Care Team (Late st Contact Info) Description 03/01/2024 Orders Only [facility] [address] [place] [address] Yeni Willoughby MD [address] [place] [address] [phone] Primary hypertension (Primary Dx); Type 2 diabetes [...] Care Team (Late st Contact Info) Description 11/08/2024 9:00 AM EDT Office Visit [facility] [address] [place] [address] Andrew Servin DDS [address] [place] [address] 01/22/2025 11:00 AM EST Office Visit [facility] [address] [place] [address] Yeni Willoughby MD [address] [place] [address] 03/07/2025 1:00 PM EST Office Visit [facility] [address] [place] [address] Crystal Melendrez [address] [place] [address] Scheduled Referrals Name Type Priority Associated Diagnoses Orde r Schedule Referral to Pharmacy CDTM Outpatient Referral Routine Primary hypertension Type 2 diabetes mellitus without complication, without long-term current use of insulin ([facility]) Asthma-COPD overlap syndrome ([facility]/HCC) Tobacco use Ordered: 03/01/2024 documented as of this encounter Goals Goal Patient Goal Type Associated Problems Recent Progress Patient-Stated? Author Blood Pressure < 140/90 Blood Pressure 120/70(2024 11:06 AM EDT) No Quoc Bermudez PharmD Hemoglobin A1c < 7 Result Component 6(10/24/2024 11:11 AM EDT) No Quoc Bermudez, Shannen documented as of this encounter Visit Diagnoses Diagnosis Primary hypertension- Primary Unspecified essential hypertension Type 2 diabetes mellitus without complication, without long-term current use of insulin (CMS/HCC) Asthma-COPD overlap syndrome ([facility]) Tobacco use documented in this encounter Additional Health Concerns Assessment Noted Time PHQ-9 Depression Total Score: 0 05/25/19 24 9:46 AM EDT documented as of this encounter Care Teams Call Center Team Leader Relationship Specialty Start Date End Date Yeni Willoughby MD [address] [place] [address] PCP - General Family Medicine 02/27/18 Quoc Bermudez, RazD [address] [place] [address] Pharmacist Internal Medicine 02/14/22 [facility] 11/02/23 documented as of this encounter
--- OUTSIDE RECORDS SUMMARY | 2024-10-30 14:59 | XMS_ITS | Encounter Summary ---
Author Organization [employer] Address [address] [place] [address] 7 [place] [address] Care Team Providers Care Sales Product Specialist Name Role Phone Yeni Willoughby MD Primary Care Provider [phone] Quoc Bermudez PharmD Unavailable [phone] Reason for Referral * Medications - Closed Specialty Diagnoses / Procedures Referred By Contac t Referred To Contact Diagnoses Type 2 diabetes mellitus without complication, without long-term current use of insulin (CMS/[facility]) Yeni Willoughby MD [address] [place] [address] Phone: tel: fax: Referral ID Status Reason Start Date Expiration Date Visits Re quested Visits Authorized [id number] Closed 1 1 Encounter Details Date Type Department Care Team (Late st Contact Info) Description 10/18/2023 Orders Only [facility] [address] [place] [address] Yeni Willoughby MD [address] [place] [address] Hypomagnesemia (Primary Dx); Dehydration; CHEMO (acute kidney [...] Description 11/08/2024 9:00 AM EDT Office Visit [facility] [address] [place] [address] Andrew Servin DDS [address] [place] [address] 01/22/2025 11:00 AM EST Office Visit [facility] [address] [place] [address] Yeni Willoughby MD [address] [place] [address] 03/07/2025 1:00 PM EST Office Visit [facility] [address] [place] [address] Crystal Melendrez [address] [place] [address] Scheduled Orders Name Type Priority Associated Diagnoses Orde r Schedule Basic Metabolic Panel Lab Routine Hypomagnesemia Dehydration CHEMO (acute kidney injury) ([facility]) Expected: 10/23/2023 (Approximate), Expires: 10/17/2024 Magnesium Lab Routine Hypomagnesemia Dehydration CHEMO (acute kidney injury) ([facility]/HCC) Expected: 10/23/2023 (Approximate), Expires: 10/17/2024 documented as of this encounter Goals Goal Patient Goal Type Associated Problems Recent Progress Patient-Stated? Author Blood Pressure < 140/90 Blood Pressure 120/70(2024 11:06 AM EDT) No Quoc Bermudez PharmD Hemoglobin A1c < 7 Result Component 6(10/24/2024 11:11 AM EDT) No Quoc Bermudez, PharmD documented as of this encounter Visit Diagnoses Diagnosis Hypomagnesemia- Primary Disorders of magnesium metabolism Dehydration CHEMO (acute kidney injury) ([facility]) Type 2 diabetes mellitus without complication, without long-term current use of insulin ([facility]) documented in this encounter Additional Health Concerns Assessment Noted Time PHQ-9 Depression Total Score: 0 05/25/19 24 9:46 AM EDT documented as of this encounter Care Teams Sales Product Specialist Relationship Specialty Start Date End Date Yeni Willoughby MD [address] [place] [address] PCP - General Family Medicine 02/27/18 Quoc Bermudez, PharmD [address] [place] [address] Pharmacist Internal Medicine 02/14/22 [facility] 11/02/23 documented as of this encounter
--- OUTSIDE RECORDS SUMMARY | 2024-10-30 14:59 | XMS_ITS | Encounter Summary ---
Author Organization [employer] Address [address] [facility] 7t [place] [address] Care Team Providers Care Utility Inspector Name Role Phone Yeni Willoughby MD Primary Care Provider [phone] Quoc Bermudez PharmD Unavailable [phone] Encounter Details Date Type Department Care Team ([facility] Contact Info) Description 06/03/2022 Orders Only [facility] [address] [place], [place] [phone] Yeni Willoughby MD [address] [place] [address] Hypomagnesemia (Primary Dx); Lesion of parotid gland; [...] Description 11/08/2024 9:00 AM EDT Office Visit [facility] 230 [place] [address] Andrew Servin DDS [address] [place] [address] 01/22/2025 11:00 AM EST Office Visit [facility] [address] [place] [address] Yeni Willoughby MD [address] [place] [address] 03/07/2025 1:00 PM EST Office Visit [facility] [address] [place] [address] Maycol Melendrezaris [address] [place] [address] documented as of this encounter Goals Goal Patient Goal Type Associated Problems Recent Progress Patient-Stated? Author Blood Pressure < 140/90 Blood Pressure 120/70( 025 11:06 AM EDT) No Quoc Bermudez, Shannen documented as of this encounter Visit Diagnoses Diagnosis Hypomagnesemia- Primary Disorders of magnesium metabolism Lesion of parotid gland Lymphadenopathy of left cervical region documented in this encounter Additional Health Concerns Assessment Noted Time PHQ-9 Depression Total Score: 3 06/02/19 23 11:01 AM EDT documented as of this encounter Care Teams Utility Inspector Relationship Specialty Start Date End Date Yeni Willoughby MD [address] [place] [address] PCP - General Family Medicine 02/27/18 Quoc Bermudez, PharmD [address] [place] [address] Pharmacist Internal Medicine 02/14/22 [facility] 11/02/23 documented as of this encounter
--- OUTSIDE RECORDS SUMMARY | 2024-10-30 14:59 | XMS_ITS | Encounter Summary ---
Author Organization [employer] Address [address] [facility] 7t [place] [address] Care Team Providers Care Sap Architect Name Role Phone Yeni Willoughby MD Primary Care Provider [phone] Quoc Bermudez PharmD Unavailable [phone] Encounter Details Date Type Department Care Team ([facility] Contact Info) Description 02/07/2024 Orders Only [facility] [address] [place], [place] [phone] Yeni Willoughby MD [address] [place] [address] Hyperkalemia (Primary Dx); Stage 3a chronic kidney [...] Description 11/08/2024 9:00 AM EDT Office Visit [facility] [address] [place] [address] Andrew Servin DDS [address] [place] [address] 01/22/2025 11:00 AM EST Office Visit [facility] [address] [place] [address] Yeni Willoughby MD [address] [place] [address] 03/07/2025 1:00 PM EST Office Visit [facility] [address] [place] [address] Crystal Melendrez [address] [place] [address] Scheduled Orders Name Type Priority Associated Diagnoses [...] Component 6(10/24/2024 11:11 AM EDT) No Quoc Bermudez PharmD documented as of this encounter Visit Diagnoses Diagnosis Hyperkalemia- Primary Hyperpotassemia Stage 3a chronic kidney disease (CMS/HCC) documented in this encounter Additional Health Concerns Assessment Noted Time PHQ-9 Depression Total Score: 0 05/25/19 9:46 AM EDT documented as of this encounter Care Teams Sap Architect Relationship Specialty Start Date End Date Yeni Willoughby MD [address] [place] [address] PCP - General Family Medicine 02/27/18 Quoc Bermudez PharmD [address] [place] [address] Pharmacist Internal Medicine 02/14/22 [facility] 11/02/23 documented as of this encounter
--- OUTSIDE RECORDS SUMMARY | 2024-10-30 14:59 | XMS_ITS | Encounter Summary ---
Author Organization [employer] Address [address] [place] [address] 7 [place] [address] Care Team Providers Care Casing Builder Name Role Phone Yeni Willoughby MD Primary Care Provider [phone] Quoc Bermudez PharmD Unavailable [phone] Encounter Details Date Type Department Care Team ([facility] Contact Info) Description 04/08/2022 Orders Only [facility] [address] [place], [place] [phone] Yeni Willoughby MD [address] [place], [place] [phone] Controlled type 2 diabetes mellitus with hyperglycemia, without long-term current use of insulin ([facility]) (Primary Dx); History of Graves' disease [...] Department Care Team (Late Contact Info) Description 11/08/2024 9:00 AM EDT Office Visit [facility] [address] [place], [place] [phone] Andrew Servin DDS [address] [place], [place] [phone] 01/22/2025 11:00 AM EST Office Visit [facility] [address] [place] [address] Yeni Willoughby MD [address] [place], [place] 03/07/2025 1:00 PM EST Office Visit [facility] [address] [place] [address] Parvin, Crystal [address] [place] [address] documented as of this encounter Visit Diagnoses Diagnosis Controlled type 2 diabetes mellitus with hyperglycemia, without long-term current use of insulin ([facility])- Primary History of Graves' disease documented in this encounter Care Teams Casing Builder Relationship Specialty Start Date End Date Yeni Willoughby MD [address] [place] [address] PCP - General Family Medicine 02/27/18 Quoc Bermudez, PharmD [address] [place] [address] [phone] Pharmacist Internal Medicine 02/14/22 [facility] 11/02/23 documented as of this encounter
--- OUTSIDE RECORDS SUMMARY | 2024-10-30 14:59 | XMS_ITS | Encounter Summary ---
Author Organization [email or web address] Address [address] [facility] 7t [place] [address] Care Team Providers Care Education Nurse Name Role Phone Yeni Willoughby MD Primary Care Provider [phone] Quoc Bermudez PharmD Unavailable [phone] Encounter Details Date Type Department Care Team ([facility] Contact Info) Description 11/22/2023 Orders Only [facility] [address] [place], [place] [phone] Yeni Willoughby MD [address] [place], [place] [phone] Hypomagnesemia (Primary Dx); Hypocalcemia Social History Tobacco [...] Description 11/08/2024 9:00 AM EDT Office Visit [facility] ADULT D[facility]AL [address] [place] [address] Andrew Servin DDS [address] [place] [address] 01/22/2025 11:00 AM EST Office Visit [facility] [address] [place] [address] Yeni Willoughby MD [address] [place] [address] 03/07/2025 1:00 PM EST Office Visit [facility] ADULT D[facility]AL [address] [place] [address] Crystal Melendrez [address] [place] [address] Scheduled Orders Name Type Priority Associated Diagnoses [...] Final Resul t [facility] [address] [place] [phone] * (ABNORMAL) TSH (01/12/2024 11:55 AM EST) Thyroid Stimulating Hormone 0.05(L) 0.32 - 4.0 uIU/mL [facility] Comment:TSH 3rd Generation ( [facility]) Blood Venous blood specimen / Unknown 01/12/2024 11:55 AM EST 01/12/2024 12:57 PM EST us Yeni Willoughby MD LAB BLOOD ORDERABLES Final Resul t Performing Organization Address [facility] de Phone Number [facility] [address] [place] [phone] * T4, Free (01/12/2024 11:55 AM EST) Free T4 (Free Thyroxine) 1.32 0.71 - 1.85 ng/dL [facility] Blood Venous blood specimen / Unknown 01/12/2024 11:55 AM EST 01/12/2024 12:57 PM EST us Yeni Willoughby MD LAB BLOOD ORDERABLES Final Resul t Performing Organization Address [facility] Co de Phone Number [facility] [address] [place] [phone] * (ABNORMAL) Magnesium (01/12/2024 11:55 AM EST) Pathologist [facility] Magnesium 1.3(LL) 1.6 - 2.6 mg/dL [facility] Comment:Critical value for M AG: Results called to and read back by:Naty Rodriguez Person calling: JIMMY Date: 01/12/24 Time: 1414 Blood Venous blood specimen / Unknown 01/12/2024 11:55 AM EST 01/12/2024 12:57 PM EST Yeni Willoughby MD LAB BLOOD ORDERABLES Final Resul t Performing Organization Address [facility] Co de Phone Number [facility] [address] [place] [phone] * (ABNORMAL) Basic Metabolic Panel (01/12/2024 11:55 AM EST) Sodium 141 135 - 145 mmol/L [facility] Potassium 4.1 3.3 - 5.1 mmol/L [facility] Chloride 106 96 - 108 mmol/L [facility] Carbon Dioxide 29 22 - 29 mmol/L [facility] Anion Gap 10(L) 12 - 20 [facility] Urea Nitrogen (BUN) 20(H) 9 - 16 mg/dL [facility] Creatinine, Serum 0.99 0.5 - 1.4 mg/dL [facility] Estimated Glomerular Filt Rate 57 [facility] Comment:Chronic Kidney Disea se: Estimated GFR < 60 mL/min/1.88y3Wiwctn Kidney Disease: Estimated GFR < 15 mL/min/1.73m2 Glucose 97 60 - 115 mg/dL [facility] Calcium 9.3 8.4 - 10.2 mg/dL [facility] Blood Venous blood specimen / Unknown 01/12/2024 11:55 AM EST 01/12/2024 12:57 PM EST Yeni Willoughby MD LAB BLOOD ORDERABLES Final Resul t Performing Organization Address City/State/[facility] Co de Phone Number [facility] [address] [place] [phone] documented in this encounter Visit Diagnoses Diagnosis Hypomagnesemia- Primary Disorders of magnesium metabolism Hypocalcemia documented in this encounter Additional Health Concerns Assessment Noted Time PHQ-9 Depression Total Score: 0 05/25/19 24 9:46 AM EDT documented as of this encounter Care Teams Education Nurse Relationship Specialty Start Date End Date Yeni Willoughby MD [address] [place] [address] PCP - General Family Medicine 02/27/18 Quoc Bermudez, RazD [address] [place] [address] Pharmacist Internal Medicine 02/14/22 [facility] documented as of this encounter
--- OUTSIDE RECORDS SUMMARY | 2024-10-30 14:59 | XMS_ITS | Encounter Summary ---
Author Organization [employer] Address [address] [place] [address] 7 [place] [address] Care Team Providers Care Webbing Inspector Name Role Phone Yeni Willoughby MD Primary Care Provider [phone] Quoc Bermudez PharmD Unavailable [phone] Reason for Referral * Consultation (Routine) - Closed Specialty Diagnoses / Procedures Referred By Contjuan diego t Referred To Contact Allergy Diagnoses Pruritic rash Yeni Willoughby MD [address] [place] [address] Phone: tel: fax: Saúl Suarez MD [address] [place] [address] Drive [address] [place] [address] Phone: tel: fax: Referral ID Status Reason Start Date Expiration Date V isits Requested Visits Authorized [id number] Closed Specialty Services Required 01/09/2024 01/08/2025 1 1 Encounter Details Date Type Department Care Team (Late st Contact Info) Description 01/09/2024 Orders Only [facility] [address] [place], [place] [phone] Yeni Willoughby MD [address] [place], [place] [phone] Pruritic rash (Primary Dx) Social History Tobacco [...] Description 11/08/2024 9:00 AM EDT Office Visit [facility]ULT [facility] [address] [place] [address] Andrew Servin DDS [address] [place] [address] 01/22/2025 11:00 AM EST Office Visit [facility] [address] [place] [address] Yeni Willoughby MD [address] [place] [address] 03/07/2025 1:00 PM EST Office Visit [facility] [address] [place], [place] [phone] Crystal Melendrez [address] [place], [place] [phone] Scheduled Referrals Name Type Priority Associated Diagnoses [...] documented as of this encounter Care Teams Webbing Inspector Relationship Specialty Start Date End Date Yeni Willoughby MD [address] [place] [address] PCP - General Family Medicine 02/27/18 Quoc Bermudez, RazD [address] [place] [address] Pharmacist Internal Medicine 02/14/22 [facility] 11/02/23 documented as of this encounter
--- OUTSIDE RECORDS SUMMARY | 2024-10-30 14:59 | XMS_ITS | Encounter Summary ---
Author Organization [employer] Address [address] [facility] 7t [place] [address] Care Team Providers Care Auto Radio Mechanic Name Role Phone Yeni Willoughby MD Primary Care Provider [phone] Quoc Bermudez PharmD Unavailable [phone] Encounter Details Date Type Department Care Team ([facility] Contact Info) Description 06/21/2023 Orders Only [facility] [address] [place], [place] [phone] Yeni Willoughby MD [address] [place], [place] [phone] Social History Tobacco Use Types Packs/Day Years [...] Description 11/08/2024 9:00 AM EDT Office Visit [facility] [address] [place] [address] Andrew Servin DDS [address] [place] [address] 01/22/2025 11:00 AM EST Office Visit [facility] [address] [place] [address] Yeni Willoughby MD [address] [place] [address] 03/07/2025 1:00 PM EST Office Visit [facility] [address] [place] [address] Crystal Melendrez [address] [place] [address] documented as of this encounter Goals Goal [...] documented as of this encounter Care Teams Auto Radio Mechanic Relationship Specialty Start Date End Date Ynei Willoughby MD [address] [place] [address] PCP - General Family Medicine 02/27/18 Quoc Bermudez, Shannen [address] [place] [address] Pharmacist Internal Medicine 02/14/[address] [facility] 11/02/23 documented as of this encounter
--- OUTSIDE RECORDS SUMMARY | 2024-10-30 14:59 | XMS_ITS | Encounter Summary ---
Author Organization [employer] Address [address] [facility] 7t [place] [address] Care Team Providers Care Um Nurse Name Role Phone Yeni Willoughby MD Primary Care Provider [phone] Quoc Bermudez PharmD Unavailable [phone] Encounter Details Date Type Department Care Team ([facility] Contact Info) Description 05/26/2023 Orders Only [facility] [address] [place], [place] [phone] Yeni Willoughby MD [address] [place], [place] [phone] Postablative hypothyroidism (Primary Dx); Hypomagnesemia Social History [...] Description 11/08/2024 9:00 AM EDT Office Visit [facility] [address] [place] [address] Andrew Servin DDS [address] [place] [address] 01/22/2025 11:00 AM EST Office Visit [facility] [address] [place] [address] Yeni Willoughby MD [address] [place] [address] 03/07/2025 1:00 PM EST Office Visit [facility] [address] [place] [address] Crystal Melendrez [address] [place] [address] documented as of this encounter Goals Goal Patient Goal Type Associated Problems Recent Progress Patient-Stated? Author Blood Pressure < 140/90 Blood Pressure 120/70(2024 11:06 AM EDT) No Quoc Bermudez, Shannen Hemoglobin A1c < 7 Result Component 6(10/24/2024 [...] Stimulating Hormone 0.05(L) 0.32 - 4.0 uIU/mL [facility] Comment:TSH 3rd Generation ( [facility]) Blood Venous blood specimen / Unknown 06/21/2023 11:29 AM EDT 06/21/2023 1:52 PM EDT us Yeni Willoughby MD LAB BLOOD ORDERABLES Final Resul t Performing Organization Address [facility] Co de Phone Number [facility] [address] [place] [phone] * T4, Free (06/21/2023 11:29 AM EDT) Free T4 (Free Thyroxine) 1.31 0.71 - 1.85 ng/dL [facility] Blood Venous blood specimen / Unknown 06/21/2023 11:29 AM EDT 06/21/2023 1:52 PM EDT Yeni Willoughby MD LAB BLOOD ORDERABLES Final Resul t Performing Organization Address [facility] Co de Phone Number [facility] [address] [place] [phone] documented in this encounter Visit Diagnoses Diagnosis Postablative hypothyroidism- Primary Other postablative hypothyroidism Hypomagnesemia Disorders of magnesium metabolism documented in this encounter Additional Health Concerns Assessment Noted Time PHQ-9 Depression Total Score: 0 05/25/19 24 9:46 AM EDT documented as of this encounter Care Teams Um Nurse Relationship Specialty Start Date End Date Yeni Willoughby MD [address] [place] [address] PCP - General Family Medicine 02/27/18 Quoc Bermudez, PharmD [address] [place] [address] [place] [address] Pharmacist Internal Medicine 02/14/22 [facility] 11/02/23 documented as of this encounter
--- OUTSIDE RECORDS SUMMARY | 2024-10-30 14:59 | XMS_ITS | Encounter Summary ---
Author Organization [employer] Address [address] [facility] [address] [place] [address] Care Team Providers Care Non Garment Sewing Machine Operator Name Role Phone Yeni Willoughby MD Primary Care Provider [phone] Quoc Bermudez PharmD Unavailable [phone] Encounter Details Date Type Department Care Team ([facility] Contact Info) Description 02/07/2024 Orders Only [facility] [address] [place], [place] [phone] Yeni Willoughby MD [address] [place], [place] [phone] Social History Tobacco Use Types Packs/Day Years [...] Description 11/08/2024 9:00 AM EDT Office Visit [facility] [address] [place] [address] Andrew Servin DDS [address] [place] [address] 01/22/2025 11:00 AM EST Office Visit [facility] [address] [place] [address] Yeni Willoughby MD [address] [place] [address] 03/07/2025 1:00 PM EST Office Visit [facility] [address] [place] [address] Crystal Melendrez [address] [place] [address] documented as of this encounter Goals Goal Patient Goal Type Associated Problems Recent Progress Patient-Stated? Author Blood Pressure < 140/90 Blood Pressure 120/70(2024 11:06 AM EDT) No Quoc Bermudez PharmD Hemoglobin A1c < 7 Result Component 6(10/24/2024 11:11 AM EDT) No Bermudez, Quoc, PharmD documented as of this encounter Visit Diagnoses Not on filedocumented in this encounter Additional Health Concerns Assessment Noted Time PHQ-9 Depression Total Score: 0 05/25/19 9:46 AM EDT documented as of this encounter Care Teams Non Garment Sewing Machine Operator Relationship Specialty Start Date End Date Yeni Willoughby MD [address] [place] [address] PCP - General Family Medicine 02/27/18 Quoc Bermudez, PharmD [address] [place] [address] Pharmacist Internal Medicine 02/14/22 [facility] 11/02/23 documented as of this encounter
--- OUTSIDE RECORDS SUMMARY | 2024-10-30 14:59 | XMS_ITS | Clinical Summary ---
Author Organization [employer] Address [address] [place] [address] Care Team Providers Care Business Unit Leader Name Role Phone Yeni [place] MD Primary Care Provider [phone] Quoc Bermudez PharmD Unavailable [phone] Allergies Active Allergy Reactions Criticality Noted Date Comments Codeine 05/25/2018 Other reaction(s): Rash, Rash Fluoxetine 03/08/2010 Other reaction(s): unspecified Ibuprofen 03/08/2010 Other reaction(s): unspecified Meclizine Rash Low 04/09/2024 Sulfamethoxazole 03/08/2010 Other reaction(s): unspecified Sulfamethoxazole-Trimethoprim 2024 Other Reaction(s): rash and itch Trimethoprim 03/08/2010 Other reaction(s): unspecified Medications Alcohol Swabs (SM Alcohol Prep) 70 % pads USE DIRECTED FOUR TIMES DAILY Active Blood Pressure Monitoring (Omron 3 Series BP Monitor) device USE TO CHECK BLOOD PRESSURE ONCE DAILY Active TRUEplus Lancets 33G misc TEST BLOOD SUGAR FOUR TIMES DAILY Active fluticasone (Flonase) 50 MCG/ACT nasal spray spray 1 spray by intranasal route every day in each nostril 16 g 023 Active Probiotic Product (Advanced Probiotic-14) capsule Take 1 capsule by mouth every morning Active D3-1000 25 MCG (1000 UT) capsule TAKE 2 CAPSULES BY MOUTH ONCE DAILY IN THE MORNING 60 capsule 11 024 Active FREESTYLE LITE test stripIndications :Type 2 diabetes mellitus without complication, without long-term current use of insulin ([facility]) TEST BLOOD SUGAR THREE TIMES DAILY 100 each 11 Active calcium 500 MG tablet Take 1 tablet (500 mg) by mouth Once per day. 90 tablet 3 024 Active olmesartan (Benicar) 20 MG tablet Take 1 tablet (20 mg) by mouth Once per day. 90 tablet 3 024 2024 Active aspirin (Aspirin Low Dose) 81 MG EC tabletIndication s:At high risk for cardiovascular disease TAKE 1 TABLET BY MOUTH EVERY MORNING 30 tablet 11 024 Active levothyroxine (Synthroid, Levoxyl) 75 MCG tablet Take 75 mcg by mouth in the morning. Active Reguloid 400 MG capsule Active omeprazole (PriLOSEC) [address] capsuleIndicatio ns:Gastroesophag eal reflux disease, unspecified whether esophagitis present TAKE 1 CAPSULE BY MOUTH AT BEDTIME 30 capsule 2 025 Active cloNIDine (Catapres) 0.2 MG tablet TAKE 1 TABLET BY MOUTH AT BEDTIME 90 tablet 3 025 Active amLODIPine (Norvasc) 5 MG tablet TAKE 1 TABLET BY MOUTH EVERY MORNING 30 tablet 3 025 Active Trulicity 0.75 MG/0.5ML solution auto-injectorInd ications:Control led type 2 diabetes mellitus without complication, without long-term current use of insulin ([facility]) INJECT ONE PEN (=0.75MG) SUBCUTANEOUSLY ONCE A WEEK DIRECTED 2 mL 3 025 Active acetaminophen (Tylenol 8 Hour) 650 MG ER tabletIndication s:Chronic low back pain, unspecified back pain laterality, unspecified whether sciatica present TAKE 1 TABLET BY MOUTH EVERY 8 HOURS NEEDED 60 tablet 3 025 Active famotidine (Pepcid) 20 MG tablet TAKE 1 TABLET BY MOUTH TWICE DAILY IN THE MORNING AND IN THE EVENING 60 tablet 1 025 Active montelukast (Singulair) 10 MG tablet TAKE 1 TABLET BY MOUTH EVERY EVENING 90 tablet 1 025 Active metFORMIN XR (Glucophage-XR) 500 MG 24 hr tabletIndication s:Controlled type 2 diabetes mellitus with hyperglycemia, without long-term current use of insulin ([facility]) TAKE 2 TABLETS BY MOUTH TWICE DAILY IN THE MORNING AND EVENING 360 tablet 1 Active Artificial Tears ophthalmic solution 1 drop in both eyes 4 times a day 15 mL 12 Active magnesium oxide (Mag-Ox) 400 (240 Mg) MG tablet TAKE 1 TABLET BY MOUTH TWICE DAILY IN THE MORNING AND AT BEDTIME 60 tablet 1 Active atorvastatin (Lipitor) 20 MG tablet Take 20 mg by mouth at bedtime. Active Umeclidinium Neville (Incruse Ellipta) 62.5 MCG/ACT aerosol powder Inhale 1 Act (62.5 mcg) Once per day. 30 each Active albuterol 108 (90 Base) MCG/ACT inhaler Inhale 2 puffs every 4 hours as needed for difficulty breathing. Maximum 8 puffs per day. 18 g 3 Active lidocaine (Lidoderm) 5 % patchIndications :Chronic low back pain without sciatica, unspecified back pain laterality Apply 1 patch topically Once per day. Remove & discard patch within 12 hours or as directed by MD. 30 patch Active albuterol 108 (90 Base) MCG/ACT inhaler 022 2024 Discontinued(R eorder (will not trigger notification to Pharmacy)) polyvinyl alcohol (Liquifilm Tears) 1.4 % ophthalmic solution APPLY IN EACH EYE NEEDED DIRECTED 2024 Discontinued(T herapy completed) atorvastatin (Lipitor) 10 MG tablet Take 2 tablets (20 mg) by mouth Once per day. 60 tablet 2024 Discontinued(M ed list cleanup (will not trigger notification to Pharmacy)) loratadine (Claritin) 10 MG tablet Take 1 tablet (10 mg) by mouth Once per day. 30 tablet 2024 Discontinued(M ed list cleanup (will not trigger notification to Pharmacy)) lidocaine (Lidoderm) 5 % patchIndications :Chronic low back pain without sciatica, unspecified back pain laterality Apply 1 patch topically Once per day. Remove & discard patch within 12 hours or as directed by . 30 patch 11 025 2024 Discontinued(R eorder (will not trigger notification to Pharmacy)) magnesium oxide (Mag-Ox) 400 (240 Mg) MG tablet TAKE 1 TABLET BY MOUTH TWICE DAILY IN THE MORNING AND AT BEDTIME 60 tablet 1 025 2024 Discontinued Active Problems Problem Noted Date Diagnosed Date Chronic back pain 08/04/2024 Assessment & Plan (10/26/2024 12:51 AM EDT): - judicious use of APAP and NSAID - Rx lidocaine patch Assessment & Plan (08/04/2024 6:42 AM EDT): - judicious use of APAP and NSAID - Rx lidocaine patch Health care maintenance 08/04/2024 Assessment & Plan (08/04/2024 6:46 AM EDT): Lung - [facility] [place] screening [place], last CT in Sep 2023 Breast - Mammo 05/24/24 BI-RADS 2 Cervix - Normal in May 2020 Colon - She has GI, but has not received an appointment yet Dental calculus 07/06/2023 Periodontal disease 07/06/2023 Localized gingival recession 07/06/2023 Pancreatic insufficiency 05/26/2023 Assessment & Plan (07/24/2024 9:08 AM EDT): - following with [facility] GI - provisional Dx US in Mar 2023 showed coarse heterogenous echotexture - prescribed pancreatic enzyme by GI in the past, not taking currently Assessment & Plan (02/14/2024 6:23 AM EST): - following with [facility] GI - provisional Dx US in Mar 2023 showed coarse heterogenous echotexture - prescribed pancreatic enzyme by GI in the past, not taking currently Assessment & Plan (05/26/2023 12:19 PM EDT): - following with [facility] - provisional Dx US in Mar 2023 showed coarse heterogenous echotexture - trying pancreatic enzyme currently Pulmonary nodules 05/26/2023 Assessment & Plan (07/24/2024 9:10 AM EDT): - followed by [facility] lung cancer screening progam - [...] working on smoking cessation Assessment & Plan (11/22/2023 10:08 AM EDT): - followed by [facility] lung cancer screening progam - [...] (05/26/2023 12:23 PM EDT): - followed by [facility] lung cancer screening progam - last CT in August 2022, Lung RADS 2, Multiple 1 mm calcified small granulomas in both lungs. 4 mm pulmonary nodules are stable. No new nodules seen. - continue annual CT scan - continue working on smoking cessation Metabolic dysfunction-associ ated steatotic liver disease (MASLD) 08/28/2022 Assessment & Plan (10/28/2024 6:58 PM EDT): - following with [facility] - hx reactive Hep C antibody, negative in 2020 and 2021 - most recent US on 05/08/23 mildly increased echogenicity of liver. - fibrosis stage F0 - FIB4 index 0.96 - continue working on lifestyle modifications Assessment & Plan (07/24/2024 9:08 AM EDT): - following with [facility] - hx reactive Hep C antibody, negative in 2020 and 2021 - most recent US on 05/08/23 mildly increased echogenicity of liver. - fibrosis stage F0 - FIB4 index 0.96 - continue working on lifestyle modifications Assessment & Plan (04/23/2024 11:18 AM EST): - following with [facility] - hx reactive Hep C antibody, negative in 2020 and 2021 - most recent US on 05/08/23 mildly increased echogenicity of liver. - fibrosis stage F0 - FIB4 index 0.96 - continue working on lifestyle modifications Assessment & Plan (02/13/2024 9:27 AM EST): - following with [facility] - hx reactive Hep C antibody, negative in 2020 and 2021 - most recent US on 05/08/23 mildly increased echogenicity of liver. - fibrosis stage F0 - FIB4 index 0.96 - continue working on lifestyle modifications Assessment & Plan (11/22/2023 9:31 AM EDT): - following with [facility] - hx reactive Hep C antibody, negative in 2020 and 2021 - most recent US on 05/08/23 mildly increased echogenicity of liver. - fibrosis stage F0 - FIB4 index 0.96 - continue working on lifestyle modifications Assessment & Plan (08/16/2023 12:34 PM EDT): - following with [facility] - hx reactive Hep C antibody, negative in 2020 and 2021 - most recent US on 05/08/23 mildly increased echogenicity of liver. - fibrosis stage F0 - FIB4 index 0.96 - continue working on lifestyle modifications Assessment & Plan (05/26/2023 11:47 AM EDT): - following with [facility] - hx reactive Hep C antibody, negative in 2020 and 2021 - most recent US on 05/08/23 mildly increased echogenicity of liver. - fibrosis stage F0 Assessment & Plan (08/28/2022 11:22 AM EDT): - hx reactive Hep C antibody, negative in 2020 and 2021 - evaluate with US - refer back to GI Hepatomegaly 08/28/2022 Assessment & Plan (07/24/2024 9:08 AM EDT): - hx reactive Hep C antibody, negative in 2020 and 2022 - following with GI Assessment & Plan (05/25/2023 5:46 AM EDT): [...] mild coronary artery dz Assessment & Plan (07/24/2024 9:05 AM EDT): 10/14/20 TTE Normal EF 60-65% 10/22/20 Cardiac cath showed mild CAD, medical management was recommended Continue working on risk factor management Harm reduction on cardiotoxic substances Consider checking coronary calcium score Assessment & Plan (11/22/2023 3:46 PM EDT): [...] working on risk factor management Overweight 06/13/2022 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 - She also has [place]. - Current medications: Maintenance: Singulair 10 mg at bedtime; tiotropium (Spiriva), switch to umeclidinium (Incruse).; fluticasone propionate / salmeterol (Wixela) -Rescue: DuoNeb prn; Albuterol HFA prn - Treatment Hx: She has tried Incruse Ellipta, but had intolerance / adverse reaction. Pt c/o dry mouth with Spiriva, but would like to resume because she reported adverse reaction and ineffectiveness with Budesonide - formoterol - glycopyrrolate (Breztri). Changing tiotropium (Spiriva) to umeclidinium (Incruse). Consider fluticasone / umeclidinium / vilanterol (Trelegy). - Stop smoking. - will repeat Pulm Function Test in near future Assessment & Plan (07/24/2024 9:09 AM EDT): - PFT in 2008 showed [...] Test in near future Assessment & Plan (04/30/2024 11:46 AM EST): [...] with complete reversibility. - She also has YK. - Current medications: Maintenance: Singulair 10 mg [...] Test Tobacco use 06/01/2022 Assessment & Plan (10/28/2024 6:59 PM EDT): -Smoking Hx > 30 pack years -last lung cancer screening CT on 10/17/23 Lung RADS 1 -Discussed about the importance of smoking cessation today. -previously tried nicotine replacement which was ineffective -tried Chantix -continue assessing her stage of change Assessment & Plan (07/24/2024 9:10 AM EDT): -Smoking Hx > 30 pack years -last lung cancer screening CT on 10/17/23 Lung RADS 1 -Discussed about the importance of smoking cessation today. -previously tried nicotine replacement which was ineffective -tried Chantix -continue assessing her stage of change Assessment & Plan (04/30/2024 11:40 AM EST): [...] keep appt Exophthalmos 06/01/2022 Assessment & Plan (07/25/2024 8:48 PM EDT): - due to Grave's disease - continue artificial tears, eye protection - check an availability of resident associate or plastic surgeon who can evaluate and treat Assessment & Plan (08/28/2022 11:06 AM EDT): - due to Grave's disease - continue artificial tears, eye protection - check an availability of resident associate or plastic surgeon who can evaluate and treat Hypomagnesemia 06/01/2022 Assessment & Plan (07/24/2024 9:08 AM EDT): - pt is taking thiazide-diuretic - continue magnesium oxide - encouraged to improve adherence - check lab again Assessment & Plan (02/13/2024 5:24 AM EST): [...] Gastroesophageal reflux disease 05/06/2014 Assessment & Plan (07/24/2024 9:07 AM EDT): - restarted omeprazole 20 mg daily Assessment & Plan (02/14/2024 6:23 AM EST): - restarted omeprazole 20 mg daily Prolapse of female pelvic organs 12/13/2013 Hidradenitis suppurativa 12/13/2013 Depressive disorder 11/26/2013 Assessment & Plan (07/24/2024 9:09 AM EDT): - worsening depression and anxiety due to her unstable living condition and financial hardship - positive SDOH screen - patient declines service today Assessment & Plan (11/22/2023 3:52 PM EDT): - worsening depression and anxiety due to her unstable living condition and financial hardship - positive SDOH screen - patient declines service today Assessment & Plan (08/16/2023 12:46 PM EDT): - worsening depression and anxiety due to her unstable living condition and financial hardship - positive SDOH screen - 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 with 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 [facility] care process manager Chronic sinusitis 06/26/2013 Assessment & Plan (10/28/2024 6:56 PM EDT): - discourage cocaine use - referred to ENT Assessment & Plan (07/24/2024 9:06 AM EDT): - discourage cocaine use - referred to ENT - acute on chronic currently - evaluate with CT scan - Rx doxycycline Assessment & Plan (04/30/2024 11:42 AM EST): - discourage cocaine use - referred to ENT - acute on chronic currently - evaluate with CT scan - Rx doxycycline Assessment & Plan (11/22/2023 10:00 AM EDT): - discourage cocaine use - consider referral to ENT Type 2 diabetes mellitus 06/26/2013 Assessment & Plan (10/26/2024 12:51 AM EDT): - A1c 6.0% on 10/24/24, increased from 5.9% on 07/24/24 - Emphasized the importance of SMBG and lifestyle modifications. - Continue metformin ER 1000 mg BID - Continue dulaglutide 0.75 mg weekly - Last eye exam: Hx Graves ophthalmopathy. PVD. Seen by [facility] on 01/03/24 - Last comprehensive foot exam: 04/23/24; patient is having foot pain; will prescribe diabetic footwears - Last microalbumin test : 05/20/24 UACR 13.4 - Last FLP: 05/28/24 TC 97; TG 243; HDL 35; LDL 14 - Last dental exam: ? Assessment & Plan (08/04/2024 6:49 AM EDT): - A1c 5.9% on 07/24/24 - Emphasized the importance of SMBG and lifestyle modifications. - Continue metformin ER 1000 mg BID - Continue dulaglutide 0.75 mg weekly - Last eye exam: Hx Graves ophthalmopathy. PVD. Seen by [facility] on 01/03/24 - Last comprehensive foot exam: 04/23/24; patient is having foot pain; will prescribe diabetic footwears - Last microalbumin test : 05/20/24 UACR 13.4 - Last FLP: 05/28/24 TC 97; TG 243; HDL 35; LDL 14 - Last dental exam: ? Assessment & Plan (04/23/2024 11:52 AM EST): [...] retinopathy. Hx Graves ophthalmopathy. PVD. Seen by [facility] on 01/03/24 - Last comprehensive [...] retinopathy. Hx Graves ophthalmopathy. PVD. Seen by [facility] on 01/03/24 - Last comprehensive foot [...] Completed Postablative hypothyroidism 07/04/2012 Assessment & Plan (10/28/2024 6:58 PM EDT): - History of Graves' disease - Radioactive iodine ablation in 2009 - Started seeing a new avionic technician, Dr. Mccracken, initial visit on 02/08/24. - Current replacement: Levothyroxine 100 mcg daily. - last TSH 4.94 on 06/28/2024; free T4= 1.01 - Dr. Mccracken recommends that patient completes 6 weeks of levothyroxine 100 mcg, then recheck thyroid function test before adjusting its dose. Patient was referred to Dr. Herbert for Graves' eye disease. - Recommended to check appointment with endocrinology office Assessment & Plan (07/24/2024 9:07 AM EDT): - History of Graves' disease - Radioactive iodine ablation in 2009 - Started seeing a new avionic technician, Dr. Mccracken, initial visit on 02/08/24. - Current replacement: Levothyroxine 100 mcg daily. - last TSH - Dr. Mccracken recommends that patient completes 6 weeks of levothyroxine 100 mcg, then recheck thyroid function test before adjusting its dose. Patient was referred to Dr. Herbert for Graves' eye disease. - Assessment & Plan (04/23/2024 8:58 AM EST): - History of Graves' disease - Radioactive iodine ablation in 2009 - Started seeing a new avionic technician, Dr. Mccracken, initial visit on 02/08/24. - [...] in 2009 - Started seeing a new avionic technician, Dr. Mccracken, initial visit on 02/08/24. - [...] - Pt was referred to a new avionic technician and was seen on 02/21/19. - Because she is euthyroid, she was discharged Assessment & Plan (11/22/2023 9:58 AM EDT): - History of Graves' disease - Radioactive iodine ablation in 2009 - Medications: Levothyroxine 125 mcg daily. - last TSH 0.06 on 09/22/23 - Check lab and adjust medication accordingly - Previously seeing avionic technician at [facility], then [facility], and was discharged due to her stability and no concern for thyroid cancer. - Of note, patient is on GLP-1 RA Assessment & Plan (08/16/2023 12:39 PM EDT): - History of Graves' disease - Radioactive iodine ablation in 2009 - Medications: Levothyroxine 125 mcg daily. - last TSH 0.05 on 06/21/23 - Check lab and adjust medication accordingly - Previously seeing avionic technician at [facility], then [facility], and was discharged due to her stability [...] - Continue current replacement - Previously seeing avionic technician at [facility], then [facility], and was discharged due to her stability and no concern for thyroid cancer. >>ASSESSMENT AND PLAN FOR HYPOTHYROIDISM WRITTEN ON 05/25/2023 5:52 AM BY YENI [place] MD - History of Graves' disease - Radioactive iodine ablation in 2009 - Medications: Levothyroxine 137 mcg daily. - last TSH 0.43 on 06/01/22 - Continue current replacement - Pt was referred to a new avionic technician and was seen on 02/21/19. - Because she is euthyroid, she was discharged Assessment & Plan (08/28/2022 11:01 AM EDT): - Medications: Levothyroxine 137 mcg daily. - last TSH 0.43 on 06/01/22 - Continue current replacement - Pt was referred to a new avionic technician and was seen on 02/21/19. - Because she is euthyroid, she was discharged. Assessment & Plan (06/13/2022 12:48 PM EDT): - Medications: Levothyroxine 137 mcg daily. - last TSH 3.11 on 07/16/20 - Continue current replacement - Pt was referred to a new avionic technician and was seen on 02/21/19. - Because she is euthyroid, she was discharged. Allergic rhinitis 12/01/2011 Assessment & Plan (07/24/2024 9:06 AM EDT): Continue loratadine and flonase Assessment & Plan (04/30/2024 11:41 AM EST): Continue loratadine and flonase Dyslipidemia 12/01/2011 Assessment & Plan (10/28/2024 6:55 PM EDT): Current medication: Atorvastatin 20 mg nightly Previous medication: pravastatin 80 mg qhs Lab: 05/28/24 TC 97; TG 243; HDL 35; LDL 14 Continue working on lifestyle modificaiton Consider higher potency statin due to mild CAD, although her LDL is at goal Assessment & Plan (07/24/2024 12:55 PM EDT): Current medication: switched to atorvastatin on 11/22/23. This may be an offending agent. Will consider holding the medication. Previous medication: pravastatin 80 mg qhs Lab: 05/28/24 TC 97; TG 243; HDL 35; LDL 14 Continue working on lifestyle modificaiton Consider higher potency statin due to mild CAD, although her LDL is at goal - Ordered Lipid Panel with Reflex to Direct LDL 04/23/24 Assessment & Plan (04/24/2024 12:45 AM EST): [...] 32; LDL 42 Continue working on lifestyle [facility] Hypertension 12/01/2011 Assessment & Plan (10/28/2024 6:53 PM EDT): - Goal BP < 130/80 per ACC/AHA. - Home BP [...] co management with our pharmacist through [facility] Assessment & Plan (07/24/2024 9:05 AM EDT): - Goal BP < 140/90 [...] today and adjust accordingly) Assessment & Plan (04/23/2024 11:55 AM EST): [...] sleep apnea syndrome 10/05/2011 Assessment & Plan (10/28/2024 6:59 PM EDT): - following with sleep medicine clinic at [facility], last seen in May 2023 - home sleep study on 12/15/22, auto PAP 5-20 cm H2O was recommended - recent compliance report shows 100% adherence - continue AutoPAP Assessment & Plan (07/24/2024 9:10 AM EDT): - following with sleep medicine clinic at [facility], last seen in May 2023 - home sleep study on 12/15/22, auto PAP 5-20 cm H2O was recommended - recent compliance report shows 100% adherence - continue AutoPAP Assessment & Plan (04/30/2024 11:46 AM EST): - following with sleep medicine clinic at [facility], last seen in May 2023 - home sleep study on 10/19/23, auto PAP 5-20 cm H2O was recommended - recent compliance report shows 100% adherence - continue AutoPAP Assessment & Plan (11/22/2023 9:31 AM EDT): - following with sleep medicine clinic at [facility], last seen in May 2023 - home sleep study on 12/15/22, auto PAP 5-20 cm H2O was recommended - recent compliance report shows 100% adherence - continue AutoPAP Assessment & Plan (08/16/2023 12:31 PM EDT): - following with sleep medicine clinic at [facility], last seen in May 2023 - home sleep study on 12/15/22, auto PAP 5-20 cm H2O was recommended - recent compliance report shows 100% adherence - continue AutoPAP Assessment & Plan (05/26/2023 11:42 AM EDT): - following with sleep medicine clinic at [facility] - home sleep study on [...] Encounters Date Type Department Care Team Description 10/24/2024 11:00 AM EDT Office Visit [facility] MED[facility] [address] [place] [id number] Yeni [place] MD Primary hypertension (Primary Dx); Dyslipidemia; Type 2 diabetes mellitus without complication, without long-term current use of insulin (CMS/HCC); COPD with asthma (CMS/HCC); Chronic low back pain without sciatica, unspecified back pain laterality; Chronic sinusitis, unspecified location; Postablative hypothyroidism; Metabolic dysfunction-associated steatotic liver disease (MASLD); Tobacco use; Obstructive sleep apnea syndrome 10/24/2024 Travel 10/18/2024 Travel 10/04/[address] [facility] MED & PEDS [address], [place] [id number] Yeni [place] MD 10/02/2024 11:00 AM EDT Office Visit [facility] OPTOMETRY [address] [place] [address] Sanjeev, Estefania, OD Hypertensive retinopathy of both eyes (Primary Dx); Thyroid eye disease; Type 2 diabetes mellitus without complication, without long-term current use of insulin (CMS/HCC); Bilateral pseudophakia; Presbyopia; Epiretinal membrane (ERM) of right eye; PVD (posterior vitreous detachment), both eyes 10/02/2024 Travel 09/24/2024 1:30 PM EDT Office Visit [facility] ADULT DENTAL [address] [place] [phone] Andrew Servin, DDS 09/24/[address] [address] Yeni [place] MD Call Back Request 09/11/[address] [facility] [address] [place] [address] Yeni [place] MD Controlled type 2 diabetes mellitus with hyperglycemia, without long-term current use of insulin (CMS/HCC) 09/05/[address] [facility] MED[facility]INE [address] [place] [id number] Yeni [place] MD Durable Medical Equipment ([facility] [employer]: Shower Chair) 08/20/2024 1:00 PM EDT Office Visit [facility] [address], [place] [phone] Crystal Melendrez Dental calculus (Primary Dx); Localized gingival recession; Periodontal disease; Localized aggressive severe periodontitis 08/19/[address] [facility] [address], [place] [phone] Yeni [place] MD Chronic low back pain, unspecified back pain laterality, unspecified whether sciatica present 08/08/[address] [facility] [address] [place], [place] [phone] Heidy Garza ANP 08/06/[address] [facility] [address] [place], [place] [phone] Yeni [place] MD Controlled type 2 diabetes mellitus without complication, without long-term current use of insulin ([facility]) 08/05/2024 Telephone [facility] [address], [place] [phone] Yeni [place] MD Durable Medical Equipment from Last 3 Months Immunizations Immunization Administration Dates Next Due Hep A, Adult 02/13/2024,05/25/2023 Hep B, adult 02/13/2024, 5,08/15/2014,07/08 Influenza injectable quadriv alent IIV4 with preservative 11/20/2017,12/29/2016,11/16/2015,02/11 Influenza injectable quadriv alent preservative free 01/17/2022,12/10/2020,01/30/2020,01/22 Influenza, IIV3, injectable 11/26/2013,1 ,11/23/2009,10/30 Influenza, Split (incl. tracie fied surface antigen) 11/16/2012,12/01/2011 Influenza, seasonal, injecta ble, preservative free 11/22/2023 Moderna Covid-19 Vaccine 12+ 03/12/2021,07/17/19 21,06/18/2020 Pfizer Covid-19 Vaccine 12+ 11/22/2023, Pneumococcal Conjugate PCV 20 02/14/2022 Pneumococcal Polysaccharide [...] Sign Reading Time Taken Comments Blood Pressure 120/70 10/24/2024 11:06 AM EDT Pulse 89 10/24/2024 11:06 AM EDT Temperature 36 C (96.8 F) 10/24/2024 11:06 AM EDT Respiratory Rate 22 10/24/2024 11:06 AM EDT Oxygen Saturation 100% 10/24/2024 11:06 AM EDT Inhaled Oxygen Concentration - - Weight 69.7 kg (153 lb 9.6 oz) 10/24/2024 11:06 AM EDT Height 162.6 cm (5' 4 ) 10/24/2024 11:06 AM EDT Body Mass Index 26.37 10/24/2024 11:06 AM EDT Plan of Treatment Upcoming Encounters Date Type Department Care Team (Late st Contact Info) Description 11/08/2024 9:00 AM EDT Office Visit [facility] [address] [place] [address] Andrew Servin DDS [address] [place] [address] 01/22/2025 11:00 AM EST Office Visit [facility] [address] [place] [address] Yeni [place] MD [address] [place] [address] 03/07/2025 1:00 PM EST Office Visit [facility] [address] [place] [address] Crystal Melendrez [address] [place] [address] Health Maintenance Due Date Last Done Comments CT Colonography 1965 Colonoscopy 1965 Colorectal Cancer Screening 1965 FIT DNA/Cologuard 1965 FIT 1965 FOBT 1965 Sigmoidoscopy 1965 Influenza Vaccine (#1) 2024 , 01/17/2022, 12/10/2020, Additional history exists Diabetes: Hemoglobin A1C 01/24/2025 025, 07/24/2024, 04/23/2024, Additional history exists Alcohol/Substance Use Screening 02/12/2025 02/13/2024 Dental Oral Exam 02/20/2025 08/20/2024, , 04/07/2021, Additional history exists Dental Prophylaxis 02/20/2025 08/20/2024, 1 04/21/2023, 07/06/2023, Additional history exists Diabetes: Foot Exam 04/23/2025 04/23/2024, 04/23/2024, 04/23/2024, Additional history exists Diabetes: Urine Protein Screening 05/20/2025 05/20/2024, 02/19/2024, 05/26/2023, Additional history exists Lipid Panel 05/28/2025 05/28/2024, 04/28, 05/25/2023, Additional history exists Cervical Cancer Screening 06/22/2025 HPV/Cotest 06/22/2025 06/22/2020, 12/29/2016 Pap Smear 06/22/2025 06/22/2020 Depression Screening 07/24/2025 07/24/2024, 07/25/19 Disability Screening 07/24/2025 07/24/2024 SDOH Screening 07/24/2025 07/24/2024 Dental X-Ray: Bitewings 08/21/2025 08/21/19, 06/15/2023, 08/27/2020, Additional history exists Tobacco Screening 10/28/2025 10/28/2024 Mammogram 05/24/2026 05/24/2024, 10/29, 11/08/2021, Additional history exists Eye Exam 10/02/2026 10/02/2024, 08/0 07/2024, 10/02/2024, Additional history exists Dental X-Ray: Full Mouth 08/22/2027 08/20/2024, 07/0 02/2020 DTaP/Tdap/Td Vaccines (3 - Td or Tdap) 01/18/2032 01/17/2022, 04/25/2011, 01/07/2004 Pneumococcal Vaccine: 50+ Years Completed 02/14/2022, 01/01/2009, 01/01/2009 Zoster Vaccines Completed 12/30/2022, 02/14/2022 HIV Screening Completed 04/12/2023, 06/28, 12/11/2020, Additional history exists COVID-19 Vaccine Completed 11/22/2023, , 01/17/2022, Additional history exists Hepatitis A Vaccines Completed [...] patient's age to complete this topic Meningococcal B Vaccine Aged Out No l onger eligible based on patient's age to complete [...] 11:11 AM EDT) No Quoc Bermudez PharmD Procedures Procedure Name Priority Date/Time Associated Diagnosis Comments XR LUMBAR SPINE 2-3 VIEWS Routine 10/30/2024 12:35 PM EDT Chronic low back pain without sciatica, unspecified back pain laterality POCT GLYCOSYLATED HEMOGLOBIN (HGB A1C) Routine 10/24/2024 11:11 AM EDT Type 2 diabetes mellitus without complication, without long-term current use of insulin ([facility]) POCT GLUCOSE Routine 10/24/2024 11:09 AM EDT Type 2 diabetes mellitus without complication, without long-term current use of insulin ([facility]) OCT, RETINA - OU - BOTH EYES Routine 10/02/2024 11:00 AM EDT Epiretinal membrane (ERM) of right eye NO CHARGE VISIT Routine 09/24/2024 1:30 PM EDT PERIODIC ORAL EVALUATION - ESTABLISHED PATIENT Routine 08/20/2024 1:00 PM EDT ORAL HYGIENE INSTRUCTIONS Routine 08/20/2024 1:00 PM EDT Dental calculus Localized gingival recession Periodontal disease TOPICAL APPLICATION OF FLUORIDE VARNISH Routine 08/20/2024 1:00 PM EDT Dental calculus Localized gingival recession Periodontal disease CASE PRESENTATION, DETAILED AND EXTENSIVE TREATMENT PLANNING Routine 08/20/2024 1:00 PM EDT Dental calculus Localized gingival recession Periodontal disease PROPHYLAXIS - ADULT Routine 08/20/2024 1 :00 PM EDT Dental calculus Localized gingival recession Periodontal disease INTRAORAL - COMPLETE SERIES OF RADIOGRAPHIC IMAGES Routine 08/20/2024 1:00 PM EDT Dental calculus Localized gingival recession Periodontal disease LIPID PANEL WITH REFLEX TO DIRECT LDL Routine 05/28/2024 12:13 PM EDT Dyslipidemia BI MAMMOGRAM SCREENING TOMOSYNTHESIS BILATERAL Routine 05/24/2024 3:00 PM EDT ALBUMIN, RANDOM URINE W/CREATININE Routine 05/20/2024 9:56 AM EDT Type 2 diabetes mellitus without complication, without long-term current use of insulin ([facility]) HEPATITIS C AB W/REFL TO HCV RNA, QN, PCR Routine 02/13/2024 10:03 AM EST Routine screening for STI (sexually transmitted infection) HIV 1/2 ANTIGEN/ANTIBODY, FOURTH GENERATION W/RFL Routine 04/12/2023 4:03 PM EST HPV MRNA E6/E7 Routine 06/22/2020 6:38 AM EDT THINPREP PAP Routine 06/22/2020 6:38 AM EDT from Last 3 Months or Most Recently Relevant to Health Maintenance Results * XR Lumbar Spine 2-3 Views (10/30/2024 12:35 PM EDT) Anatomical Region Laterality Modality Spine, L-spine Radiographic Charlene ging 10/30/2024 12:3 5 PM EDT Narrative 10/30/2024 1:09 PM EDT [address] [address] XRay Report Signed Patient: Jennifer Barth I MR#: [id number] : 1965 Acct:[id number] Age/Sex: 59 / F ADM Date: 10/30/24 Loc: HO.CT Attending Dr: Jami Blunt PA-C Ordering Physician: Yeni [place] MD Date of Service: 10/30/24 Procedure(s): XR lumbar spine 2-3V Accession Number(s): [id number] cc: Yeni [place] MD Reason for Exam: mid line tenderness, L1 EXAMINATION: XR LUMBOSACRAL SPINE CLINICAL INFORMATION: mid line tenderness, L1 COMPARISON: October 24, 2016. TECHNIQUE: AP and lateral views. FINDINGS: S-shaped curvature of the thoracolumbar spine. Marginal osteophyte formation and endplate sclerosis decreased intervertebral disc height at multiple levels of the axial skeleton pronounced at L4-5 and L5-S1 with associated vacuum phenomenon. Grade 1 retrolisthesis L3-4 and likely L4-5. No acute cortical disruption. No lytic or blastic lesions. Vascular calcifications, aorta and iliac arteries. Multiple vascular clips in the right hemiabdomen. XR/XR lumbar spine 2-3V IMPRESSION: Multilevel thoracolumbar spondylosis pronounced at L4-5 and L5-S1 with levoconvex scoliosis. Overall worsening since prior examination. Electronically signed by: Dev Crane MD 10/30/2024 01:06 PM EDT Dictated By: Dev Reddy MD Signed By: <Electronically signed by Dev Swain MD in OV> 10/30/24 1306 DD/ 1235 TD/TT: 10/30/24 1255 Insecticide Sprayer: Procedure Note Donotuseinterpreter, Image - 10/30/[address] [address] XRay Report Signed Patient: Jennifer Barth IMR#: [id number] : 1965Acct:[id number] Age/Sex: 59 / FADM Date: 10/30/24 Loc: HO.CT Attending Dr: Jami Blunt PA-C Ordering Physician: Yeni [place] MD Date of Service: 10/30/24 Procedure(s): XR lumbar spine 2-3V Accession Number(s): [id number] cc: Yeni [place] MD Reason for Exam: mid line tenderness, L1 EXAMINATION: XR LUMBOSACRAL SPINE CLINICAL INFORMATION: mid line tenderness, L1 COMPARISON: October 24, 2016. TECHNIQUE: AP and lateral views. FINDINGS: S-shaped curvature of the thoracolumbar spine. Marginal osteophyte formation and endplate sclerosis decreased intervertebral disc height at multiple levels of the axial skeleton pronounced at L4-5 and L5-S1 with associated vacuum phenomenon. Grade 1 retrolisthesis L3-4 and likely L4-5. No acute cortical disruption. No lytic or blastic lesions. Vascular calcifications, aorta and iliac arteries. Multiple vascular clips in the right hemiabdomen. XR/XR lumbar spine 2-3V IMPRESSION: Multilevel thoracolumbar spondylosis pronounced at L4-5 and L5-S1 with levoconvex scoliosis. Overall worsening since prior examination. Electronically signed by: Dev Crane MD 10/30/2024 01:06 PM EDT Dictated By: Dev Reddy MD Signed By: <Electronically signed by Dev Swain MDin OV> 10/30/24 1306 DD/ 1235 TD/TT: 10/30/24 1255 Insecticide Sprayer: Yeni [place] MD IMG XR PROCEDURES Final Result * (ABNORMAL) POCT glycosylated hemoglobin (Hgb A1c) (10/24/2024 11:11 AM EDT) Hemoglobin A1C 6.0(A) 4.0 - 5.7 % QC Media Lot # [id number] Lot# Expiration Date ,664 Blood Capillary blood specimen / Unknown 10/24/2024 11:11 AM EDT Yeni [place] MD POINT OF CARE TEST ENTER/EDIT OR DERABLES Final Result * POCT glucose manually resulted (10/24/2024 11:09 AM EDT) Pathologist [facility] Glucose Blood, POC 118 60 - 200 mg/dL QC Media Lot # [id number] Lot# Expiration Date 492,717 Blood Capillary blood specimen / Unknown 10/24/2024 11:09 AM EDT Yeni [place] MD POINT OF CARE TEST ENTER/EDIT OR DERABLES Final Result * OCT, Retina - OU - Both Eyes (10/02/2024 11:00 AM EDT) Narrative Estefania Pace, OD - 10/24/2024 3:46 PM EDT Images from the original result were not included. Right Eye Quality was good. Left Eye Quality was good. Notes OCT MACULA INTERPRETATION Optical Coherence Tomography Interpretation Report Measurements: OD OS Macula Thickness 189 microns 247 microns Test findings: OD: Deep foveal contour, epiretinal membrane throughout the macula, no cystoid macular edema, no subretinal fluid OS: Normal foveal contour, no cystoid macular edema, no retinal pigment epithelium disruption, no subretinal fluid Impression and Plan: ERM in the right eye with BCVA of 20/25. No treatment necessary at this time. Will monitor at her next exam. us Estefania Pace OD OPHTH TOMOGRAPHY Final Result * (ABNORMAL) Lipid Panel with Reflex to Direct LDL (05/28/2024 12:13 PM EDT) Triglycerides 243(H) <150 mg/dL [facility] Comment:Desirable Triglyceri de: less than 150 mg/dLBorderline High Triglyceride 150-199 mg/dLHigh Triglyceride: 200-499 mg/dLVery High Triglyceride: greater than or equal to 5OO mg/dL Cholesterol 97 <200 mg/dL [facility] Comment:Desirable Cholestero l: less than 200 mg/dLBorderline High Cholesterol: 200-239 mg/dLHigh Cholesterol: greater than 239 mg/dL LDL Cholesterol Calculated 14 <100 mg/dL [facility] Comment:Desirable LDL: less than 100 mg/dLNear Optimal/Above Optimal LDL: 110- 129 mg/dLBorderline High LDL: 130-159 mg/dLHigh LDL: 160-189 mg/dLVery High LDL: greater than or equal to 190 mg/dL HDL Cholesterol 35(L) >40 mg/dL [facility] Comment:Desirable HDL: great er than 40 mg/dL Note: This HDL assay may give artificially low results in patients with liver disease. Blood 05/28/2024 12:1 3 PM EDT 05/28/2024 1:15 PM EDT us Yeni [place] MD LAB BLOOD ORDERABLES Final Resul t [facility] [address] [place], [place] [phone] * BI Mammogram Screening Tomosynthesis Bilateral (05/24/2024 3:00 PM EDT) Anatomical Region Laterality Modality Breast Bilateral Mammography 05/24/2024 3:00 PM EDT Narrative 06/01/2024 3:10 PM EDT [facility] [address] [place] [address] Mammography Report Signed Patient: Jennifer Barth I MR#: [id number] : 1965 Acct:[id number] Age/Sex: 59 / F ADM Date: 05/24/24 Loc: [facility] Attending Dr: Yeni [place] MD Ordering Physician: Yeni [place] MD Results: 2Benign F indings Date of Service: 05/24/24 Follow Up: 1 Year From Orig inal Mammogram Procedure(s): MM tomosynthesis screening BI Accession Number(s): [id number] cc: Yeni [place] MD EXAMINATION: MM SCREENING [...] 06/01/24 1507 DD/ 1500 TD/TT: 05/24/24 1515 Insecticide Sprayer: Procedure Note Donotuseinterpreter, Image - 06/01/2024 [facility] [address] [place] [address] Mammography Report Signed Patient: Jennifer Barth IMR#: [id number] : 1965Acct:[id number] Age/Sex: 59 / FADM Date: 05/24/24 Loc: [facility] Attending Dr: Yeni [place] MD Ordering Physician: Yeni [place] MDResults: 2Benign F indings Date of Service: 05/24/24Follow Up: 1 Year From Orig inal Mammogram Procedure(s): MM tomosynthesis screening BI Accession Number(s): [id number] cc: Yeni [place] MD EXAMINATION: MM SCREENING [...] 06/01/24 1507 DD/ 1500 TD/TT: 05/24/24 1515 Insecticide Sprayer: Yeni [place] MD IM BI PROCEDURES Edited Result - Final * Albumin, Random Urine W/Creatinine (05/20/2024 9:56 AM EDT) Creatinine, Urine 141.41 mg/dL [facility] Microalbumin Urine 19.0 mg/L [facility] Microalbum Creatinine Ratio Ur 13.4 <30 ug/mg cr [facility] Comment:Albumin/Creatinine R atio Reference Ranges: Normal: < 30 ug/mg creatinine Microalbuminuria: 30 - 300 ug/mg creatinineClinical Albuminuria: > 300 ug/mg creatinine Urine 05/20/2024 9:56 AM EDT 05/20/2024 10:56 AM EDT Yeni [place] MD LAB URINE ORDERABLES Final Resul t Performing Organization Address [facility] de Phone Number [facility] [address] [place] [address] [phone] * Hepatitis C Antibody with Reflex to HCV, RNA, Quantitative, Real-Time PCR (02/13/2024 10:03 AM EST) Hepatitis C Antibody Nonreactive Nonreactive [facility] Comment:Antibodies to HCV no t detected; does not exclude early acuteHCV infection. Blood Venous blood specimen / Unknown 02/13/2024 10:03 AM EST 02/13/2024 11:03 AM EST us Yeni [place] MD LAB BLOOD ORDERABLES Final Resul t Performing Organization Address [facility] de Phone Number [facility] [address] [place] [address] [phone] * HIV-1/2 Antigen and Antibodies, Fourth Generation, with Reflexes (04/12/2023 4:03 PM EST) HIV AB/AG Nonreactive Nonreactive [facility] Comment:HIV-1 p24 Ag and/or HIV-1/HIV-2 Ab not detected.A test result that is nonreactive does not exclude thepossibility of exposure to or infection with HIV-1 and/orHIV-2. Nonreactive results in this assay for individualswith prior exposure to HIV-1 and/or HIV-2 may be due toantigen and antibody levels that are below the limit ofdetection of this assay.The [employer] HIV Ag/Ab Combo assay result andsupplemental assay results should be interpreted inconjunction with the patient's clinical presentation,history and other laboratory results. If the results areinconsistent with clinical evidence, additional testing issuggested to confirm the result. 04/12/2023 4:03 PM EST 04/12/2023 4:03 PM EST us Generic External Data Provider LAB BLOOD ORDERAB LES Final Result [facility] [address] [place] [address] [phone] * THINPREP PAP (06/22/2020 6:38 AM EDT) Clinical Information: None given [facility] COMMENT SEE COMMENT [facility] Comment: EXPLANATORY NOTE: The Pap is a screening test for cervical cancer. It is not a diagnostic test and is subject to false negative and false positive results. It is most reliable when a satisfactory sample, regularly obtained, is submitted with relevant clinical findings and history, and when the Pap result is evaluated along with historic and current clinical information. [employer] Merchandising Coordinator : SEE COMMENT [facility] Comment: DMM, CT(ASCP) CT screening location: [place] [address] Interpretation/R esult: Negative for intraepithelial lesion or malignancy. [facility] LMP: NONE GIVEN [facility] Prev. BX: NONE GIVEN [facility] Prev. PAP: NONE GIVEN [facility] SOURCE: None given [facility] Statement Of Adequacy: SEE COMMENT [facility] Comment: Satisfactory for evaluation. Endocervical/transformation zone component present. Age and/or menstrual status not provided 06/22/2020 6:38 AM EDT Yeni [place] MD LAB PATHOLOGY ORDERABLES Final R esult [facility] [address] * HPV mRNA E6/E7 (06/22/2020 6:38 AM EDT) HPV nRNA E6/E7 Not Detected Not Detected [facility] Comment: Methodology: Partition Assembly Machine Operator-Mediated Amplification This assay detects E6/E7 viral messenger RNA (mRNA) from 14 high-risk HPV types (16,18,31,33,35,39,45,51,52,56,58,59,66,68). The analytical performance characteristics of this assay have been determined by [employer]. The modifications have not been cleared or approved by the FDA. This assay has been validated pursuant to the CLIA regulations and is used for clinical purposes. For additional information, please refer to http://education.[employer]/faq/UOR756q8 (This link if provided for information/ educational purposes only.) 06/22/2020 6:38 AM EDT us Yeni [place] MD LAB BLOOD ORDERABLES Final Resul t [facility] [address] [place] [address], from Last 3 Months or Most Recently Relevant to Health Maintenance Insurance [facility] < [address] [id number] [facility] Care Teams Business Unit Leader Relationship Specialty Start Date End Date Yeni [place] MD [address] [place] [phone] PCP - General Family Medicine 02/27/18 Quoc Bermudez, PharmD [address] [place] [phone] Pharmacist Internal Medicine 02/14/22 [facility] 11/02/23
--- OUTSIDE RECORDS SUMMARY | 2024-10-30 14:59 | XMS_ITS | Encounter Summary ---
Author Organization [employer] Address [address] [place] [address] 7 [place] [address] Care Team Providers Care Ink Jet Operator Name Role Phone Yeni Willoughby MD Primary Care Provider [phone] Quco Bermudez PharmD Unavailable [phone] Encounter Details Date Type Department Care Team (Latest Contact Info) Description 08/27/2020 Abstract [facility] CONVERSIONS Dental, Provider, DDS Social History Tobacco [...] Department Care Team ( Contact Info) Description 11/08/2024 9:00 AM EDT Office Visit [facility] ADULT DENTAL [address] [place] [address] Andrew Servin, DDS [address] [place] [address] 01/22/2025 11:00 AM EST Office Visit [facility] MEDICINE [address] [place] [address] Yeni Willoughby MD [address] [place] [address] 03/07/2025 1:00 PM EST Office Visit [facility] ADULT DENTAL [address] [place] [phone] ParvinCrystal [address] [place] [address] documented as of this encounter Visit Diagnoses Not on filedocumented in this encounter Care Teams Ink Jet Operator Relationship Specialty Start Date End Date Yeni Willoughby MD [address] [place] [address] PCP - General Family Medicine 02/27/18 Quoc Bermudez, RazD [address] [place] [address] Pharmacist Internal Medicine 02/14/22 [facility] 11/02/23 documented as of this encounter
--- OUTSIDE RECORDS SUMMARY | 2024-10-30 14:59 | XMS_ITS | Encounter Summary ---
Author Organization [employer] Address [address] [place] [address] [address] [place] [address] Care Team Providers Care Staker Surveying Name Role Phone Yeni Willoughby MD Primary Care Provider [phone] Quoc Bermudez PharmD Unavailable [phone] Encounter Details Date Type Department Care Team (Latest Contact Info) Description 06/26/2018 Abstract [facility] CONVERSIONS Dental, Provider, DDS Social [...] Care Team ( st Contact Info) Description 11/08/2024 9:00 AM EDT Office Visit [facility] ADULT DENTAL [address] [place] [address] Andrew Servin, DDS [address] [place] [address] 01/22/2025 11:00 AM EST Office Visit [facility] MEDICINE [address] [place] [address] Yeni Willoughby MD [address] [place] [address] 03/07/2025 1:00 PM EST Office Visit [facility] ADULT DENTAL [address] [place] [address] Parvin, Crystal [address] [place] [address] documented as of this encounter Visit Diagnoses Not on filedocumented in this encounter Care Teams Staker Surveying Relationship Specialty Start Date End Date Yeni Willoughby MD [address] [place] [address] PCP - General Family Medicine 02/27/18 Quoc Bermudez, RazD [address] [place] [address] Pharmacist Internal Medicine 02/14/22 [facility] 11/02/23 documented as of this encounter
--- OUTSIDE RECORDS SUMMARY | 2024-10-30 14:59 | XMS_ITS | Encounter Summary ---
Author Organization [employer] Address [address] [place] [address] 7t [place] [address] Care Team Providers Care Carry Out Clerk Name Role Phone Yeni Willoughby MD Primary Care Provider [phone] Quoc Bermudez PharmD Unavailable [phone] Reason for Visit * Reason Onset Date Comments Referral 11/04/2022 Encounter Details Date Type Department Care Team ([facility] st Contact Info) Description 11/04/2022 Telephone [facility] MEDICINE [address] [place], [place] [phone] Yeni Willoughby MD [address] [place], [place] [phone] Referral Social History Tobacco Use Types Packs/Day [...] Description 11/08/2024 9:00 AM EDT Office Visit [facility] ADULT DENTAL [address] [place] [address] Andrew Servin DDS [address] [place] [address] 01/22/2025 11:00 AM EST Office Visit [facility] MEDICINE [address] [place] [address] Yeni Willoughby MD 230 [place] [address] 03/07/2025 1:00 PM EST Office Visit [facility] ADULT DENTAL 230 [facility] [place] [address] ParvinCrystal [address] [place] [address] documented as of this encounter Goals Goal Patient Goal Type Associated Problems Recent Progress Patient-Stated? Author Blood Pressure < 140/90 Blood Pressure 120/70( 025 11:06 AM EDT) No Quoc Bermudez, PharmD documented as of this encounter Visit Diagnoses Not on filedocumented in this encounter Additional Health Concerns Assessment Noted Time PHQ-9 Depression Total Score: 3 06/02/19 23 11:01 AM EDT documented as of this encounter Care Teams Carry Out Clerk Relationship Specialty Start Date End Date Yeni Willoughby MD [address] [place] [address] PCP - General Family Medicine 02/27/18 Quoc Bermudez, RazD [address] [place] [address] Pharmacist Internal Medicine 02/14/22 [facility] 11/02/23 documented as of this encounter
--- OUTSIDE RECORDS SUMMARY | 2024-10-30 14:59 | XMS_ITS | Encounter Summary ---
Author Organization [employer] Address [address] [facility] 7t [place] [address] Care Team Providers Care Robot Operator Name Role Phone Yeni Willoughby MD Primary Care Provider [phone] Quoc Bermudez PharmD Unavailable [phone] Reason for Visit * Reason Onset Date Comments Nurse Triage 12/08/2023 Encounter Details Date Type Department Care Team ([facility] st Contact Info) Description 12/08/2023 Telephone [facility] MEDICINE 230 [place], [place] [phone] Yeni Willoughby MD 230 [place], [place] [phone] Nurse Triage Social History Tobacco Use Types [...] 12/08/2023 10:56 AM EDT Called pt. Via [employer] professional healthcare representative [id number] Jay. Pt. States that she has been itchy all over herbody x 1 week. Itchiness is worse on neck, arms and on her panty line. Pt. Unsure if it is the medications that she got sent home from [facility] with on 10/26/23 Gabapentin 100mg Three x a day and also Meclizine 25mg 1 tablet 3 times a day as needed. Pt does have rash on neck and hands. Pt denies any itchiness in throat or swelling in throat. Pt denies itchiness on head. I advised that pt. Needs to be seen today or tomorrow in [facility] walk in. Hours provided and [...] Description 11/08/2024 9:00 AM EDT Office Visit [facility] ADULT DENTAL [address] [place] [address] Andrew Servin DDS 230 [place] [address] 01/22/2025 11:00 AM EST Office Visit [facility] MEDICINE 230 [place] [address] Yeni Willoughby MD 230 [place] [address] 03/07/2025 1:00 PM EST Office Visit [facility] ADULT DENTAL 230 [place] [address] Crystal Melendrez 230 [place] [address] documented as of this encounter Goals Goal [...] documented as of this encounter Care Teams Robot Operator Relationship Specialty Start Date End Date Yeni Willoughby MD 230 [place] [address] PCP - General Family Medicine 02/27/18 Quoc Bermudez PharmD 230 [place] [address] Pharmacist Internal Medicine 02/14/22 [facility] 11/02/23 documented as of this encounter
--- OUTSIDE RECORDS SUMMARY | 2024-10-30 14:59 | XMS_ITS | Encounter Summary ---
Author Organization [employer] Address [address] [facility] 7t [place] [address] Care Team Providers Care Clinical Case Manager Name Role Phone Yeni Willoughby MD Primary Care Provider [phone] Quoc Bermudez PharmD Unavailable [phone] Reason for Visit * Reason Comments Med Refill Encounter Details Date Type Department Care Team ([facility] st Contact Info) Description 06/05/2024 Refill [facility] MEDICINE 230 [place], [place] [phone] Yeni Willoughby MD 230 [place] [address] Chronic low back pain, unspecified back pain [...] Description 11/08/2024 9:00 AM EDT Office Visit [facility] ADULT DENTAL 230 [place] [address] Andrew Servin DDS [address] [place] [address] 01/22/2025 11:00 AM EST Office Visit [facility] MEDICINE [address] [place] [address] Yeni Willoughby MD 230 [place] [address] 03/07/2025 1:00 PM EST Office Visit [facility] ADULT DENTAL [address] [place] [address] Crystal Melendrez [address] [place] [address] documented as of this encounter Goals Goal Patient Goal Type Associated Problems Recent Progress Patient-Stated? Author Blood Pressure < 140/90 Blood Pressure 120/70(2024 11:06 AM EDT) No Bermudez, Quoc, PharmD Hemoglobin A1c < 7 Result Component 6(10/24/2024 11:11 AM EDT) No Quoc Bermudez PharmD documented as of this encounter Visit Diagnoses Diagnosis Chronic low back pain, unspecified back pain laterality, unspecified whether sciatica present documented in this encounter Additional Health Concerns Assessment Noted Time PHQ-9 Depression Total Score: 0 05/25/19 9:46 AM EDT documented as of this encounter Care Teams Clinical Case Manager Relationship Specialty Start Date End Date Yeni Willoughby MD 230 [place] [address] PCP - General Family Medicine 02/27/18 Quoc Bermudez PharmD [address] [place] [address] Pharmacist Internal Medicine 02/14/22 [facility] 11/02/23 documented as of this encounter
--- OUTSIDE RECORDS SUMMARY | 2024-10-30 14:59 | XMS_ITS | Encounter Summary ---
Author Organization [employer] Address [address] [facility] 7t [place] [address] Care Team Providers Care Millinery Copyist Name Role Phone Yeni Willoughby MD Primary Care Provider Quoc Bermudez PharmD Unavailable [phone] Reason for Visit * Reason Comments Med Refill Encounter Details Date Type Department Care Team ([facility] Contact Info) Description 12/18/2022 Refill [facility] MEDICINE 230 [place] [address] Heidy Garza, ANP 230 [place] [address] Social History Tobacco Use Types Packs/Day Years [...] Description 11/08/2024 9:00 AM EDT Office Visit [facility] ADULT DENTAL [address] [place] [address] Andrew Servin DDS [address] [place] [address] 01/22/2025 11:00 AM EST Office Visit [facility] MEDICINE [address] [place] [address] Yeni Willoughby MD [address] [place] [address] 03/07/2025 1:00 PM EST Office Visit [facility] ADULT DENTAL [address] [place] [address] Crystal Melendrez [address] [place] [address] documented as of this encounter Goals Goal [...] documented as of this encounter Care Teams Millinery Copyist Relationship Specialty Start Date End Date Yeni Willoughby MD [address] [place] [address] PCP - General Family Medicine 02/27/18 Quoc Bermudez, RazD [address] [place] [address] Pharmacist Internal Medicine 02/14/22 [facility] 11/02/23 documented as of this encounter
== END 2024-10-30 12:28 | disposition home or self-care (01) ==
LOC: HO.CT 12:27
PROVIDERS: Absent Provider Family Medicine; PCP Family Medicine; Visit Provider Physician Assistant Medical
DX: Z12.2 Encounter for screening for malignant neoplasm of respiratory organs (principal); F17.210 Nicotine dependence, cigarettes, uncomplicated; M54.50 Low back pain, unspecified; G89.29 Other chronic pain
CPT/HCPCS: 71271; 72100

== ENCOUNTER → 2024-10-30 12:32 | Outpatient (BNV) | payer OTHER, SELFPAY | PROVIDERS: Absent Provider Family Medicine; PCP Family Medicine; Visit Provider Radiology Diagnostic Radiology | DX: Z12.2 Encounter for screening for malignant neoplasm of respiratory organs (principal); F17.210 Nicotine dependence, cigarettes, uncomplicated | CPT/HCPCS: 71271; 72100 ==

== ENCOUNTER 2024-12-03 10:24 | Outpatient (AMB) | payer OTHER, SELFPAY ==
[2024-12-03 11:12] VITALS: BP 108/70; PULSE 80; O2SAT 98; BMI 25.8
--- NOTE | 2024-12-03 11:12 | MHC.OFFVIS ---
Vital Signs 12/03/24 11:12 Height 5 ft 4 in Weight 150 lb 6 oz BMI 25.8 BP 108/70 Blood Pressure Location Lt brachial Position Sitting Pulse 80 Pulse Source Pulse Oximeter Pulse Oximetry (%) 98 Oxygen Delivery Method Room Air Intake Visit Reasons: 6mon follow-up Intake Note: Patient presents follow up [place]. Compliance in chart(/days, >=4hrs-100%, Average Usage-8hrs 21min, Med Pressure-9.3, Med Leaks-0.0, AHI-3.3). Patient states she has never received any new supplies since getting machine. Vault Custodian Required: Yes Vault Custodian Language: Tax Expert Services: Vault Custodian Present Vault Custodian Name: rojelio Villela Information Interpreted: non-clinical & clinical Accompanied by: Self / Same As Patient Allergies sulfamethoxazole (From Bactrim) Allergy (Severe, Verified 12/03/24 11:17) Itching trimethoprim (From Bactrim) Allergy (Severe, Verified 12/03/24 11:17) Itching codeine (Codeine) Allergy (Intermediate, Verified 12/03/24 11:17) NAUSEA & VOMITING, vomiting fluoxetine (FLUOXETINE) Allergy (Intermediate, Verified 12/03/24 11:17) NAUSEA & VOMITING ibuprofen (IBUPROFEN) Allergy (Intermediate, Verified 12/03/24 11:17) NAUSEA & VOMITING Sulfa (Sulfonamide Antibiotics) Allergy (Mild, Verified 12/03/24 11:17) itching HPI Comments Details: 59 y/o Venezuelan speaking female patient presents for a follow up of her HST. Vault Custodian on IPAD The home sleep study result was significant for a mild degree of sleep apnea. The AHI is 6/hr and oxygen joel was 88%. The CPAP compliance and therapy response (09/25/24-11/24/24) is reviewed with pt. The usage days 100% and 90/90 days > 4 hours is and the average usage hours 8 hrs and 23min. APAP at [id number] and median pressure was 12.6 and the residual AHI was 3.3. She washes her mask, rinses hoses, changes filters and fills reservoir with water. She can now sleep about 7-8 hours a night with her CPAP and feels rested upon waking the next day. She feels she has more energy and productive throughout the day. She goes to bed at 11:30pm, wakes up at 8:30am, she gets up 1-3x for a bathroom break. labs with her today, as she has Graves disease and feels much better since starting therapy on Levothyroxine. She denies headaches, has dizziness occasionally upon standing and bp is lower now. She does not drink much water, encouraged patient to stay well hydrated as this will help with blood pressure fluctuations. Since having cataract surgery 2 months ago now has blurry and double vision bilaterally, though it goes away on its own and she recently had a normal vision exam. She says her memory mood and diet are stable. She is a current smoker 0.75 pk / day of cigarette. She needs supplies and a new mask with chin straps. [facility] Medical History CAD (coronary artery disease) [place] (obstructive sleep apnea) [place] on CPAP Graves' eye disease Transaminitis History of Graves' disease Pilonidal cyst Substance abuse Nicotine dependence, cigarettes, uncomplicated History of abnormal mammogram Hidradenitis suppurativa Hyperlipidemia Hypertension Surgical History Hx of cataract surgery History of colonoscopy (~2013) History of bunionectomy (~2011) History of axillary surgery (~2013) History of cholecystectomy History of umbilical hernia repair (~2016) Family History Paternal Aunt Breast cancer Mother Cancer of mandible Other [place] (obstructive sleep apnea) Social History Household Members: Children Housing: Apartment Do you presently have visiting nurse or other home services: No Alcohol intake: never Patient Tobacco Use Status: Current everyday Tobacco user Tobacco use type: Cigarette Cigarette Packs Per Day: 0.75 Cigarettes Per Day: 15 Years Smoked: 36 (onset age 19) Substance Use Type: Crack/Cocaine service: No Current occupational status: unemployed Female Reproductive History Menstrual Age of Menarche: 9 Review of Systems ENT Reports Normal hearing present Neuro Reports Normal hearing present Physical Exam Vital Signs: Last Vital Signs Pulse 80 12/03/24 11:12 BP 108/70 12/03/24 11:12 Pulse Ox 98 12/03/24 11:12 Oxygen Delivery Method Room Air 12/03/24 11:12 BMI result Body Mass Index 25.8 Const General: cooperative Nutritional Appearance: overweight Orientation/consciousness: patient oriented x3 Limitations: language barrier Eyes Pupils: Equal, round and reactive pupils present Neck Neck: Yes full ROM and Yes supple Resp Effort & Inspection: normal respiratory effort and able to speak in complete sentences Neuro Other: Bilateral Proptosis as she has Graves Disease General: patient oriented x3, gait normal, moves all extremities and no focal motor deficits Cranial nerves: Yes Equal, round and reactive pupils present, Yes Normal accommodation reflex present, Yes Bilaterally intact EOM present, Yes Normal facial strength present, Yes Midline tongue present, Yes Symmetric palate elevation present, Yes Normal hearing present, Yes Ability to bilaterally rotate head present, Yes Ability to bilaterally elevate shoulders present and Yes Other cranial nerve findings present (Proptosis ) Cognition (Neuro): normal cognition Gait exam (Neuro): Normal gait present Motor exam (neuro): Pronator motor function not present, no tremor noted, Abnormal motor strength present and Abnormal muscle tone present Psych Appearance: grossly normal Mental Status: mental status grossly normal Affect: normal affect Attitude: cooperative Results Reviewed Results Reviewed: The CPAP compliance and therapy response (09/25/24-11/24/24) is reviewed with pt. The usage days 100% and 90/90 days > 4 hours is and the average usage hours 8 hrs and 23min. APAP at [id number] and median pressure was 12.6 and the residual AHI was 3.3. She washes her mask, rinses hoses, changes filters and fills reservoir with water. The home sleep study result was significant for a mild degree of sleep apnea. The AHI is 6/hr and oxygen joel was 88%. IMPRESSION: LungRADS 2 - Benign Appearance: Continue annual screening with low dose Chest CT in 12 months. Assessment & Plan Assessment & Plan (1) [place] on CPAP: Comment: Mild degree of sleep apnea. The AHI was 6/hr and oxygen joel was 88% Code(s): G47.33 - Obstructive sleep apnea (adult) (pediatric) Category: Medical (2) Fatigue: Code(s): R53.83 - Other fatigue Category: Medical Qualifiers: Fatigue type: other Qualified Code(s): R53.83 - Other fatigue (3) Chronic sinusitis: Code(s): J32.9 - Chronic sinusitis, unspecified Category: Medical Qualifiers: Sinusitis location: sphenoidal Qualified Code(s): J32.3 - Chronic sphenoidal sinusitis (4) Dizziness: Code(s): R42 - Dizziness and giddiness Category: Medical Plan Mild [place] on cpap therapy with good compliance, reviewed compliance and HST with pt today. Supplies requested, she is out of all her supplies will send rx to her sleep company for complete order of supplies to include chin straps. Dizziness continue to hydrate and increase water intake, change positions slowly and increase daily exercise. Discussed Smoking cessation and the cardio vascular risks of smoking as she has optimized her bp now, and managing T2DM. Patient Instructions: Sleep Hygiene provided: set a scheduled bedtime and wake time to help regulate the circadian rhythm and balance the release of pituitary hormones. Sleep in a dark room, temperatures below 68 degrees, and no devices n bed. Limit caffeinated products 6 hours prior to bed, and limit fluids 2-4 hours prior to bed. Gentle night yoga, diffusing essential oils, and playing soft music can be relaxing. Smoking cessation is offerred and available with nicotine patches, gums, when you are ready to make a behavior modification and lifestyle change. CV disease is the number one modifiable risk factor is good blood pressure control, stay well hydrated. Coding Level of Care Code Est Pt Level 4 (70755) Diagnoses [place] on CPAP G47.33 Other fatigue R53.83 Fatigue type: other Chronic sphenoidal sinusitis J32.3 Sinusitis location: sphenoidal Dizziness R42
--- OUTSIDE RECORDS SUMMARY | 2024-12-03 12:31 | XMS_ITS | Encounter Summary ---
Author Organization [employer] Address [address] [place] [address] 7 [place] [address] Care Team Providers Care Biological Aide Name Role Phone Yeni Willoughby MD Primary Care Provider Quoc Bermudez PharmD Unavailable [phone] Encounter Details Date Type Department Care Team (Latest Contact Info) Description 06/26/2018 Abstract [facility] CONVERSIONS Dental, Provider, DDS Social [...] Care Team ( st Contact Info) Description 12/05/2024 9:00 AM EDT Office Visit [facility] ADULT DENTAL [address] [place] [address] Andrew Servin, DDS [address] [place] [address] 01/22/2025 11:00 AM EST Office Visit [facility] MEDICINE [address] [place] [address] Yeni Willoughby MD [address] [place] [address] 03/07/2025 12:45 PM EST Office Visit [facility] ADULT DENTAL [address] [place] [address] Parvin, Crystal 230 [place] [address] documented as of this encounter Visit Diagnoses Not on filedocumented in this encounter Care Teams Biological Aide Relationship Specialty Start Date End Date Yeni Willoughby MD [address] [place] [address] PCP - General Family Medicine 02/27/18 Quoc Bermudez, RazD [address] [place] [address] Pharmacist Internal Medicine 02/14/22 [facility] 11/02/23 documented as of this encounter
--- OUTSIDE RECORDS SUMMARY | 2024-12-03 12:31 | XMS_ITS | Encounter Summary ---
Author Organization [employer] Address [address] [facility] 7t [place] [address] Care Team Providers Care Foreign Exchange Services Manager Name Role Phone Yeni Willoughby MD Primary Care Provider [phone] Quoc Bermudez PharmD Unavailable [phone] Encounter Details Date Type Department Care Team ([facility] Contact Info) Description 02/07/2024 Orders Only [facility] MEDICINE 230 [place], [place] [phone] Yeni Willoughby MD 230 [place], [place] [phone] Social History Tobacco Use Types Packs/Day Years [...] Care Team (Late st Contact Info) Description 12/05/2024 9:00 AM EDT Office Visit [facility] ADULT DENTAL [address] [place] [address] Andrew Servin DDS [address] [place] [address] 01/22/2025 11:00 AM EST Office Visit [facility] MEDICINE [address] [place] [address] Yeni Willoughby MD 230 [place] [address] 03/07/2025 12:45 PM EST Office Visit [facility] ADULT DENTAL [address] [place] [address] Crystal Melendrez [address] [place] [address] documented as of this encounter Goals Goal [...] documented as of this encounter Care Teams Foreign Exchange Services Manager Relationship Specialty Start Date End Date Yeni Willoughby MD 230 [place] [address] PCP - General Family Medicine 02/27/18 Quoc Bermudez, PharmD [address] [place] [address] Pharmacist Internal Medicine 02/14/22 [facility] 11/02/23 documented as of this encounter
--- OUTSIDE RECORDS SUMMARY | 2024-12-03 12:31 | XMS_ITS | Encounter Summary ---
Author Organization [employer] Address [address] [place] [address] 7t [place] [address] Care Team Providers Care Roulette Dealer Name Role Phone Yeni Willoughby MD Primary Care Provider [phone] Quoc Bermudez PharmD Unavailable [phone] Reason for Visit * Reason Onset Date Comments Referral 11/04/2022 Encounter Details Date Type Department Care Team ([facility] st Contact Info) Description 11/04/2022 Telephone [facility] MEDICINE 230 [place], [place] [phone] Yeni Willoughby MD [address] [place], [place] [phone] Referral Social History Tobacco Use Types Packs/Day [...] Description 12/05/2024 9:00 AM EDT Office Visit [facility] ADULT DENTAL [address] [place] [address] Andrew Servin DDS [address] [place] [address] 01/22/2025 11:00 AM EST Office Visit [facility] MEDICINE [address] [place] [address] Yeni Willoughby MD [address] [place] [address] 03/07/2025 12:45 PM EST Office Visit [facility] ADULT DENTAL 230 [place] [address] ParvinCrystal [address] [place] [address] documented as of this encounter Goals Goal [...] documented as of this encounter Care Teams Roulette Dealer Relationship Specialty Start Date End Date Yeni Willoughby MD [address] [place] [address] PCP - General Family Medicine 02/27/18 Quoc Bermudez, PharmD [address] [place] [address] Pharmacist Internal Medicine 02/14/22 [facility] 11/02/23 documented as of this encounter
--- OUTSIDE RECORDS SUMMARY | 2024-12-03 12:31 | XMS_ITS | Encounter Summary ---
Author Organization [employer] Address [address] [place] [address] 7 [place] [address] Care Team Providers Care Director Information Name Role Phone Yeni Willoughby MD Primary Care Provider [phone] Quoc Bermudez PharmD Unavailable [phone] Encounter Details Date Type Department Care Team ([facility] Contact Info) Description 04/08/2022 Orders Only [facility] [address] [place], [place] [phone] Yeni Willoughby MD [address] [place] [address] Controlled type 2 diabetes mellitus with hyperglycemia, without long-term current use of insulin ([facility]) (Primary Dx); History [...] Department Care Team (Late Contact Info) Description 12/05/2024 9:00 AM EDT Office Visit [facility]ULT [facility] [address] [place], [place] [phone] Andrew Servin DDS [address] [place], [place] [phone] 01/22/2025 11:00 AM EST Office Visit [facility] [address] [place] [address] Yeni Willoughby MD [address] [place] [address] 03/07/2025 12:45 PM EST Office Visit [facility] [address] [place] [address] Maycol Melendrezaris [address] [place] [address] documented as of this encounter Visit Diagnoses Diagnosis Controlled type 2 diabetes mellitus with hyperglycemia, without long-term current use of insulin (HCC)- Primary History of Graves' disease documented in this encounter Care Teams Director Information Relationship Specialty Start Date End Date Yeni Willoughby MD [address] [place] [phone] PCP - General Family Medicine 02/27/18 Quoc Bermudez, PharmD [address] [place] [address] [phone] Pharmacist Internal Medicine 02/14/22 [facility] 11/02/23 documented as of this encounter
--- OUTSIDE RECORDS SUMMARY | 2024-12-03 12:31 | XMS_ITS | Encounter Summary ---
Author Organization [employer] Address [address] [place] [address] 7 [place] [address] Care Team Providers Care Band Builder Name Role Phone Yeni Willoughby MD Primary Care Provider [phone] Quoc Bermudez PharmD Unavailable Reason for Referral * Consultation (Routine) - Closed Specialty Diagnoses / Procedures Referred By Contac t Referred To Contact Pharmacy Diagnoses Primary hypertension Type 2 diabetes mellitus without complication, without long-term current use of insulin (HCC) Asthma-COPD overlap syndrome (CMS/HCC) (HCC) Tobacco use Yeni Willoughby MD [address] [place] [address] Phone: tel: fax: Referral ID Status Reason Start Date Expiration Date V isits Requested Visits Authorized [id number] Closed Consult and Treat 03/01/2024 03/01/2025 6 6 Encounter Details Date Type Department Care Team (Late st Contact Info) Description 03/01/2024 Orders Only [facility] [address] [place] [address] Yeni Willoughby MD [address] [place], [place] [phone] Primary hypertension (Primary Dx); Type 2 diabetes [...] Description 12/05/2024 9:00 AM EDT Office Visit [facility] [address] [place] [address] Andrew Servin DDS [address] [place] [address] 01/22/2025 11:00 AM EST Office Visit [facility] [address] [place] [address] Yeni Willoughby MD [address] [place] [address] 03/07/2025 12:45 PM EST Office Visit [facility] [address] [place] [address] Crystal Melendrez [address] [place] [address] Scheduled Referrals Name Type Priority Associated Diagnoses [...] complication, without long-term current use of insulin (HCC) Asthma-COPD overlap syndrome (CMS/HCC) (HCC) Tobacco use documented in this encounter Additional Health Concerns Assessment Noted Time PHQ-9 Depression Total Score: 0 05/25/19 24 9:46 AM EDT documented as of this encounter Care Teams Band Builder Relationship Specialty Start Date End Date Yeni Willoughby MD [address] [place] [phone] PCP - General Family Medicine 02/27/18 Quoc Bermudez, RazD [address] [place] [address] Pharmacist Internal Medicine 02/14/[address] [facility] 11/02/23 documented as of this encounter
--- OUTSIDE RECORDS SUMMARY | 2024-12-03 12:31 | XMS_ITS | Encounter Summary ---
Author Organization [employer] Address [address] [facility] [address]t [place] [address] Care Team Providers Care Welding Pantograph Machine Operator Name Role Phone Yeni Willoughby MD Primary Care Provider [phone] Quoc Bermudez PharmD Unavailable [phone] Reason for Visit * Reason Comments Med Refill Encounter Details Date Type Department Care Team ([facility] Contact Info) Description 12/18/2022 Refill [facility] [address] [place] [address] Heidy Garza, ANP [address] [place] [address] Social History Tobacco Use Types Packs/Day Years [...] Description 12/05/2024 9:00 AM EDT Office Visit [facility] ADULT DENTAL [address] [place] [phone] Andrew Servin DDS [address] [place] [address] 01/22/2025 11:00 AM EST Office Visit [facility] MED[facility] [address] [place] [address] Yeni Willoughby MD [address] [place] [phone] 03/07/2025 12:45 PM EST Office Visit [facility] ADULT [facility] [address] [place] [phone] Crystal Melendrez [address] [place] [address] documented as of this encounter Goals Goal [...] documented as of this encounter Care Teams Welding Pantograph Machine Operator Relationship Specialty Start Date End Date Yeni Willoughby MD [address] [place] [phone] PCP - General Family Medicine 02/27/18 Quoc Bermudez, RazD [address] [place] [phone] Pharmacist Internal Medicine 02/14/22 [facility] 11/02/23 documented as of this encounter
--- OUTSIDE RECORDS SUMMARY | 2024-12-03 12:31 | XMS_ITS | Encounter Summary ---
Author Organization [employer] Address [address] [place] [address] 7 [place] [address] Care Team Providers Care Auto Damage Adjuster Name Role Phone Yeni Willoughby MD Primary Care Provider [phone] Quoc Bermudez PharmD Unavailable [phone] Encounter Details Date Type Department Care Team (Latest Contact Info) Description 08/27/2020 Abstract [facility] Dental, Provider, DDS Social History Tobacco [...] Department Care Team ( Contact Info) Description 12/05/2024 9:00 AM EDT Office Visit [facility] ADULT [facility] [address] [place] [address] Andrew Servin, DDS [address] [place] [address] 01/22/2025 11:00 AM EST Office Visit [facility] [address] [place] [address] Yeni Willoughby MD [address] [place] [address] 03/07/2025 12:45 PM EST Office Visit [facility] [address] [place] [address] ParvinCrystal [address] [place] [address] documented as of this encounter Visit Diagnoses Not on filedocumented in this encounter Care Teams Auto Damage Adjuster Relationship Specialty Start Date End Date Yeni Willoughby MD [address] [place] [address] PCP - General Family Medicine 02/27/18 Quoc Bermudez, RazD [address] [place] [address] Pharmacist Internal Medicine 02/14/22 [facility] 11/02/23 documented as of this encounter
--- OUTSIDE RECORDS SUMMARY | 2024-12-03 12:31 | XMS_ITS | Clinical Summary ---
Author Organization [employer] Address [address] [place] [address] Care Team Providers Care Wire Mesh Knitter Name Role Phone Yeni Washington MD Primary Care Provider [phone] Quoc Bermudez PharmD Unavailable [phone] Allergies Active Allergy Reactions Criticality Noted Date [...] PRESSURE ONCE DAILY Active TRUEplus Lancets 33G [facility] [place] TEST BLOOD SUGAR FOUR TIMES DAILY Active fluticasone (Flonase) 50 MCG/ACT nasal spray spray 1 spray by intranasal route every day in each nostril 16 g 023 Active Probiotic Product (Advanced Probiotic-14) capsule Take 1 capsule by mouth every morning Active D3-1000 25 MCG (1000 UT) capsule TAKE 2 CAPSULES BY MOUTH ONCE DAILY IN THE MORNING 60 capsule 11 Active calcium 500 MG tablet Take [...] 75 mcg by mouth in the morning. 025 Active Reguloid 400 MG capsule 025 Active omeprazole (PriLOSEC) [address] capsuleIndicatio ns:Gastroesophag eal reflux disease, unspecified whether esophagitis present TAKE 1 CAPSULE BY MOUTH AT BEDTIME 30 capsule 2 025 Active cloNIDine (Catapres) 0.2 MG tablet TAKE 1 TABLET BY MOUTH AT BEDTIME 90 tablet 3 025 Active Trulicity 0.75 MG/0.5ML solution auto-injectorInd ications:Control led type 2 diabetes mellitus without complication, without long-term current use of insulin ([facility]) INJECT ONE PEN (=0.75MG) SUBCUTANEOUSLY ONCE A WEEK DIRECTED 2 mL 3 025 Active acetaminophen (Tylenol 8 Hour) 650 MG ER tabletIndication s:Chronic low back pain, unspecified back pain laterality, unspecified whether sciatica present TAKE 1 TABLET BY MOUTH EVERY 8 HOURS NEEDED 60 tablet 3 025 Active montelukast (Singulair) 10 MG tablet TAKE 1 TABLET BY MOUTH EVERY EVENING 90 tablet 1 025 Active metFORMIN XR (Glucophage-XR) 500 MG 24 hr tabletIndication s:Controlled type 2 diabetes mellitus with hyperglycemia, without long-term current use of insulin ([facility]) TAKE 2 TABLETS BY MOUTH TWICE DAILY IN THE MORNING AND EVENING 360 tablet 1 025 Active Artificial Tears ophthalmic solution 1 drop in both eyes 4 times a day 15 mL 12 025 Active magnesium oxide (Mag-Ox) 400 (240 Mg) MG tablet TAKE 1 TABLET BY MOUTH TWICE DAILY IN THE MORNING AND AT BEDTIME 60 tablet 1 025 Active Umeclidinium Sweet Water (Incruse Ellipta) 62.5 MCG/ACT aerosol powder Inhale [...] as directed by MD. 30 patch Active Oyster Shell Calcium 500 MG tablet TAKE 1 TABLET BY MOUTH EVERY MORNING 90 tablet 3 Active atorvastatin (Lipitor) 20 MG tablet TAKE 1 TABLET BY MOUTH AT BEDTIME 90 tablet 3 Active amLODIPine (Norvasc) 5 MG tablet TAKE 1 TABLET BY MOUTH EVERY MORNING 30 tablet 3 Active famotidine (Pepcid) 20 MG tablet TAKE 1 TABLET BY MOUTH TWICE DAILY IN THE MORNING AND IN THE EVENING 60 tablet 1 Active glucose blood (FREESTYLE LITE) test stripIndications :Type 2 diabetes mellitus without complication, without long-term current use of insulin ([facility]) USE DIRECTED TO TEST BLOOD SUGAR THREE TIMES DAILY 100 strip 11 Active FREESTYLE LITE test stripIndications :Type 2 diabetes mellitus without complication, without long-term current use of insulin ([facility]) TEST BLOOD SUGAR THREE TIMES DAILY 100 each 11 024 2024 Discontinued amLODIPine (Norvasc) 5 MG tablet TAKE 1 TABLET BY MOUTH EVERY MORNING 30 tablet 3 025 2024 Discontinued famotidine (Pepcid) 20 MG tablet TAKE 1 TABLET BY MOUTH TWICE DAILY IN THE MORNING AND IN THE EVENING 60 tablet 1 025 2024 Discontinued atorvastatin (Lipitor) 20 MG tablet Take 20 mg by mouth at bedtime. 025 2024 Discontinued(R eorder (will not trigger notification to Pharmacy)) Active Problems Problem Noted Date Diagnosed Date Chronic back pain 08/04/2024 Assessment & Plan (10/26/2024 12:51 AM EDT): - judicious use of APAP and NSAID - Rx lidocaine patch Assessment & Plan (08/04/2024 6:42 AM EDT): - judicious use of APAP and NSAID - Rx lidocaine patch Health care maintenance 08/04/2024 Assessment & Plan (08/04/2024 6:46 AM EDT): Lung - [facility] lung cancer screening program, last CT in Sep 2023 Breast - Mammo 05/24/24 BI-RADS 2 Cervix - Normal in May 2020 Colon - She has GI, but has not received an appointment yet Dental calculus 07/06/2023 Periodontal disease 07/06/2023 Localized gingival recession 07/06/2023 Pancreatic insufficiency 05/26/2023 Assessment & Plan (07/24/2024 9:08 AM EDT): - following with [facility] GI - provisional Dx US in Mar 2023 showed coarse heterogenous echotexture - prescribed pancreatic enzyme by GI in the past, not taking currently Assessment & Plan (02/14/2024 6:23 AM EST): - following with [facility] GI - provisional Dx US in Mar 2023 showed coarse heterogenous echotexture - prescribed pancreatic enzyme by GI in the past, not taking currently Assessment & Plan (05/26/2023 12:19 PM EDT): - following with [facility] GI - provisional Dx US in Mar 2023 showed coarse heterogenous echotexture - trying pancreatic enzyme currently Pulmonary nodules 05/26/2023 Assessment & Plan (07/24/2024 9:10 AM EDT): - followed by [facility] lung cancer screening progam - CT in [...] (11/22/2023 10:08 AM EDT): - followed by [facility] lung cancer screening progam - CT in [...] (05/26/2023 12:23 PM EDT): - followed by [facility] lung cancer screening progam - last CT in August 2022, Lung RADS 2, Multiple 1 mm calcified small granulomas in both lungs. 4 mm pulmonary nodules are stable. No new nodules seen. - continue annual CT scan - continue working on smoking cessation Metabolic dysfunction-associ ated steatotic liver disease (MASLD) 08/28/2022 Assessment & Plan (10/28/2024 6:58 PM EDT): - following with [facility] GI - hx reactive Hep C antibody, negative in 2020 and 2021 - most recent US on 05/08/23 mildly increased echogenicity of liver. - fibrosis stage F0 - FIB4 index 0.96 - continue working on lifestyle modifications Assessment & Plan (07/24/2024 9:08 AM EDT): - following with [facility] GI - hx reactive Hep C antibody, negative in 2020 and 2021 - most recent US on 05/08/23 mildly increased echogenicity of liver. - fibrosis stage F0 - FIB4 index 0.96 - continue working on lifestyle modifications Assessment & Plan (04/23/2024 11:18 AM EST): - following with [facility] GI - hx reactive Hep C antibody, negative in 2020 and 2021 - most recent US on 05/08/23 mildly increased echogenicity of liver. - fibrosis stage F0 - FIB4 index 0.96 - continue working on lifestyle modifications Assessment & Plan (02/13/2024 9:27 AM EST): - following with [facility] GI - hx reactive Hep C antibody, negative in 2020 and 2021 - most recent US on 05/08/23 mildly increased echogenicity of liver. - fibrosis stage F0 - FIB4 index 0.96 - continue working on lifestyle modifications Assessment & Plan (11/22/2023 9:31 AM EDT): - following with [facility] GI - hx reactive Hep C antibody, negative in 2020 and 2021 - most recent US on 05/08/23 mildly increased echogenicity of liver. - fibrosis stage F0 - FIB4 index 0.96 - continue working on lifestyle modifications Assessment & Plan (08/16/2023 12:34 PM EDT): - following with [facility] GI - hx reactive Hep C antibody, negative in 2020 and 2021 - most recent US on 05/08/23 mildly increased echogenicity of liver. - fibrosis stage F0 - FIB4 index 0.96 - continue working on lifestyle modifications Assessment & Plan (05/26/2023 11:47 AM EDT): - following with [facility] GI - hx reactive Hep C antibody, [...] factor management Overweight 06/13/2022 COPD with asthma ([facility]) 06/01/2022 Assessment & Plan (10/28/2024 7:02 PM [...] eye protection - check an availability of environmental health technologist or plastic surgeon who can evaluate and treat Assessment & Plan (08/28/2022 11:06 AM EDT): - due to Grave's disease - continue artificial tears, eye protection - check an availability of environmental health technologist or plastic surgeon who can evaluate and [...] & Plan (11/22/2023 10:03 AM EDT): - 05/24/24 Mg 0.9, Ca 9.3; K 3.9 - pt is taking thiazide-diuretic - continue magnesium oxide - encouraged to improve adherence - check lab again Assessment & Plan (08/16/2023 12:41 PM EDT): - 3/ Mg 0.9, Ca 9.3; K 3.9 - pt is taking thiazide-diuretic - continue magnesium oxide - encouraged to improve adherence - check lab again Assessment & Plan (05/25/2023 5:29 PM EDT): - 24 Mg 0.9, Ca 9.3; K 3.9 - [...] - positive SDOH screen - patient declines [facility] today Assessment & Plan (11/22/2023 3:52 PM EDT): - worsening depression and anxiety due to her unstable living condition and financial hardship - positive SDOH screen - patient declines [facility] today Assessment & Plan (08/16/2023 12:46 PM EDT): - worsening depression and anxiety due to her unstable living condition and financial hardship - positive SDOH screen - 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 PVD. Seen by [facility] on 01/03/24 - Last comprehensive [...] exam: Hx Graves ophthalmopathy. PVD. Seen by [facility] on 01/03/24 - Last comprehensive [...] retinopathy. Hx Graves ophthalmopathy. PVD. Seen by [facility] on 01/03/24 - Last comprehensive [...] retinopathy. Hx Graves ophthalmopathy. PVD. Seen by [facility] on 01/03/24 - Last comprehensive foot [...] in 2009 - Started seeing a new alarm mechanic, Dr. Mccracken, initial visit on 02/08/24. - [...] in 2009 - Started seeing a new alarm mechanic, Dr. Mccracken, initial visit on 02/08/24. - [...] in 2009 - Started seeing a new alarm mechanic, Dr. Mccracken, initial visit on 02/08/24. - [...] in 2009 - Started seeing a new alarm mechanic, Dr. Mccracken, initial visit on 02/08/24. - [...] - Pt was referred to a new alarm mechanic and was seen on 02/21/19. - Because she is euthyroid, she was discharged Assessment & Plan (11/22/2023 9:58 AM EDT): - History of Graves' disease - Radioactive iodine ablation in 2009 - Medications: Levothyroxine 125 mcg daily. - last TSH 0.06 on 09/22/23 - Check lab and adjust medication accordingly - Previously seeing alarm mechanic at [facility], then [facility], and was discharged due to her stability and no concern for thyroid cancer. - Of note, patient is on GLP-1 RA Assessment & Plan (08/16/2023 12:39 PM EDT): - History of Graves' disease - Radioactive iodine ablation in 2009 - Medications: Levothyroxine 125 mcg daily. - last TSH 0.05 on 06/21/23 - Check lab and adjust medication accordingly - Previously seeing alarm mechanic at [facility], then [facility], and was discharged due to her [...] - Continue current replacement - Previously seeing alarm mechanic at [facility], then [facility], and was discharged due to her stability and no concern for thyroid cancer. >>ASSESSMENT AND PLAN FOR HYPOTHYROIDISM WRITTEN ON 05/25/2023 5:52 AM BY YENI WASHINGTON MD - History of Graves' disease - Radioactive iodine ablation in 2009 - Medications: Levothyroxine 137 mcg daily. - last TSH 0.43 on 06/01/22 - Continue current replacement - Pt was referred to a new alarm mechanic and was seen on 02/21/19. - Because she is euthyroid, she was discharged Assessment & Plan (08/28/2022 11:01 AM EDT): - Medications: Levothyroxine 137 mcg daily. - last TSH 0.43 on 06/01/22 - Continue current replacement - Pt was referred to a new alarm mechanic and was seen on 02/21/19. - Because she is euthyroid, she was discharged. Assessment & Plan (06/13/2022 12:48 PM EDT): - Medications: Levothyroxine 137 mcg daily. - last TSH 3.11 on 07/16/20 - Continue current replacement - Pt was referred to a new alarm mechanic and was seen on 02/21/19. - Because [...] lifestyle modificaiton Hypertension 12/01/2011 Assessment & Plan (10/28/2024 6:53 [...] - following with sleep medicine clinic at [facility], last seen in May 2023 - home sleep study on 12/15/22, auto PAP 5-20 cm H2O was recommended - recent compliance report shows 100% adherence - continue AutoPAP Assessment & Plan (07/24/2024 9:10 AM EDT): - following with sleep medicine clinic at [facility], last seen in May 2023 - home sleep study on 12/15/22, auto PAP 5-20 cm H2O was recommended - recent compliance report shows 100% adherence - continue AutoPAP Assessment & Plan (04/30/2024 11:46 AM EST): - following with sleep medicine clinic at [facility], last seen in May 2023 - home sleep study on 12/15/22, auto PAP 5-20 cm H2O was recommended - recent compliance report shows 100% adherence - continue AutoPAP Assessment & Plan (11/22/2023 9:31 AM EDT): - following with sleep medicine clinic at [facility], last seen in May 2023 - home sleep study on 12/15/22, auto PAP 5-20 cm H2O was recommended - recent compliance report shows 100% adherence - continue AutoPAP Assessment & Plan (08/16/2023 12:31 PM EDT): - following with sleep medicine clinic at [facility], last seen in May 2023 - home sleep study on 12/15/22, auto PAP 5-20 cm H2O was recommended - recent compliance report shows 100% adherence - continue AutoPAP Assessment & Plan (05/26/2023 11:42 AM EDT): - following with sleep medicine clinic at [facility] - home sleep study on 12/15/22, auto [...] Encounters Date Type Department Care Team Description 12/03/2024 Refill [facility] [address] [place], [place] [phone] Yeni Washington MD 11/15/2024 Refill [facility] [address] [place], [place] [phone] Yeni Washington MD Type 2 diabetes mellitus without complication, without long-term current use of insulin ([facility]) 11/08/2024 Refill [facility] [address] [place], [place] [phone] Yeni Washington MD 11/04/2024 Refill [facility] [address] [place] [address] Yeni Washington MD 11/03/2024 Refill [facility] [address] [place] [address] Yeni Washington MD 11/01/2024 Abstract [facility] [address] [place] [address] Yeni Washington MD 10/31/2024 Results Follow-Up [facility] [address] [place] [address] Lung Screening Low dose 10/31/2024 Telephone [facility] [address] [place] [address] Yeni Washington MD lung screening 10/30/2024 Orders Only [facility] External Provider, [facility] 10/24/2024 11:00 AM EDT Office Visit [facility] [address] [place] [address] Yeni Washington MD Primary hypertension (Primary Dx); Dyslipidemia; Type 2 diabetes mellitus without complication, without long-term current use of insulin (CMS/HCC); COPD with asthma (CMS/HCC); Chronic low back pain without sciatica, unspecified back pain laterality; Chronic sinusitis, unspecified location; Postablative hypothyroidism; Metabolic dysfunction-associat ed steatotic liver disease (MASLD); Tobacco use; Obstructive sleep apnea syndrome 10/24/2024 Travel 10/18/2024 Travel 10/04/2024 Refill [facility] [address] [facility] [place] [facility] [place] [address] Yeni Washington MD 10/02/2024 11:00 AM EDT Office Visit [facility] [address] [facility] [place], [place] [phone] Sanjeev, Estefania, OD Diabetes type 2, no ocular involvement (CMS/HCC) (Primary Dx); Hypertensive retinopathy of both eyes; Thyroid eye disease; Epiretinal membrane (ERM) of right eye; Bilateral pseudophakia; Presbyopia 10/02/2024 Travel 09/24/2024 1:30 PM EDT Office Visit [facility] [address] [place] [address] Andrew Servin, BENEDICTS 09/24/2024 Telephone [facility] [address] [place], [place] [phone] Yeni Washington MD Call Back Request 09/11/2024 Refill [facility] [address] [place], [place] [phone] Yeni Washington MD Controlled type 2 diabetes mellitus with hyperglycemia, without long-term current use of insulin ([facility]) 09/05/2024 Telephone [facility] [address] [place], [place] [phone] Yeni Washington MD Durable Medical Equipment ([employer]: Shower Chair) from Last 3 Months Immunizations Immunization Administration [...] Description 12/05/2024 9:00 AM EDT Office Visit [facility] [address] [place] [address] Andrew Servin DDS [address] [place] [address] 01/22/2025 11:00 AM EST Office Visit [facility] [address] [place] [address] Yeni Washington MD [address] [place] [address] 03/07/2025 12:45 PM EST Office Visit [facility] [address] [place] [address] Crystal Melendrez [address] [place] [address] Health Maintenance Due Date Last Done Comments CT Colonography 1965 Colonoscopy 1965 Colorectal Cancer Screening 1965 FIT DNA/Cologuard 1965 FIT 1965 FOBT 1965 Sigmoidoscopy 1965 Influenza Vaccine (#1) 2024 4, 01/17/2022, 12/10/2020, Additional history exists Diabetes: Hemoglobin [...] Tobacco Screening 10/28/2025 10/28/2024 Mammogram 05/24/2026 05/24/2024, 092 07/2022, 11/08/2021, Additional history exists Eye Exam 10/02/2026 [...] exists Hepatitis A Vaccines Completed 02/13/2024, 05/25/19 24 Hepatitis B Vaccines Completed 02/13/2024, 02/11/2015, 08/15/2014, [...] Procedure Name Priority Date/Time Associated Diagnosis Comments HM LUNG CANCER SCREENING Routine 11/01/2024 LDCT LUNG SCREENING Routine 10/31/2024 9 :54 AM EDT XR LUMBAR SPINE 2-3 VIEWS Routine 10/30/2024 12:35 PM EDT Chronic low back pain without sciatica, unspecified back pain laterality POCT GLYCOSYLATED HEMOGLOBIN (HGB A1C) Routine 10/24/2024 11:11 AM EDT Type 2 diabetes mellitus without complication, without long-term current use of insulin (CMS/HCC) POCT GLUCOSE Routine 10/24/2024 11:09 AM EDT Type 2 diabetes mellitus without complication, without long-term current use of insulin (CMS/HCC) OCT, RETINA - OU - BOTH EYES Routine 10/02/2024 11:00 AM EDT Epiretinal membrane (ERM) of right eye NO CHARGE VISIT Routine 09/24/2024 1:30 PM EDT PROPHYLAXIS - ADULT Routine 08/20/2024 1 :00 PM EDT Dental calculus Localized gingival recession Periodontal disease INTRAORAL - COMPLETE SERIES OF RADIOGRAPHIC IMAGES Routine 08/20/2024 1:00 PM EDT Dental calculus Localized gingival recession Periodontal disease PERIODIC ORAL EVALUATION - ESTABLISHED PATIENT Routine 08/20/2024 1:00 PM EDT LIPID PANEL WITH REFLEX TO DIRECT LDL Routine 05/28/2024 12:13 PM EDT Dyslipidemia BI MAMMOGRAM SCREENING TOMOSYNTHESIS BILATERAL Routine 05/24/2024 3:00 PM EDT ALBUMIN, RANDOM URINE W/CREATININE Routine 05/20/2024 9:56 AM EDT Type 2 diabetes mellitus without complication, without long-term current use of insulin (CMS/HCC) HEPATITIS C AB W/REFL TO HCV RNA, QN, PCR Routine 02/13/2024 10:03 AM EST Routine screening for STI (sexually transmitted infection) HIV 1/2 ANTIGEN/ANTIBODY, FOURTH GENERATION W/RFL Routine 04/12/2023 4:03 PM EST HPV MRNA E6/E7 Routine 06/22/2020 6:38 AM EDT THINPREP PAP Routine 06/22/2020 6:38 AM EDT from Last 3 Months or Most Recently Relevant to Health Maintenance Results * Hm Lung Cancer Screning (11/01/2024) Lung CT LUNGRADS 2 LUNGRADS 1, LUNGRADS 2 Comment:1 year Anatomical Region Laterality Modality Other us Historical Provider HEALTH MAINTENANCE Edited Result - Final * CT Lung Screening Low dose (10/31/2024 9:54 AM EDT) Anatomical Region Laterality Modality Lung Computed Tomogra phy 10/31/2024 9:54 AM EDT Narrative 10/31/2024 9:55 AM EDT [place] [address] CT Scan Report Signed Patient: Jennifer Barth I MR#: [id number] : 1965 Acct:[id number] Age/Sex: 59 / F ADM Date: 10/30/24 Loc: HO.CT Attending Dr: Jami Blunt PA-C Ordering Physician: Jami Blunt PA-C Date of Service: 10/30/24 Procedure(s): CT lung screening Accession Number(s): [id number] cc: Jami Blunt PA-C; Yeni Washington MD Report Number: [id number]: Total DLP = 1240.00 mGy-cm Reason for Exam: F17.210 - Nicotine dependence, cigarettes, uncomplicated CLINICAL HISTORY: F17.210 - Nicotine dependence, cigarettes, uncomplicated CT lung cancer screening (LDCT) Comparison: CT/DC/SR - CT LUNG SCREENING - 10/17/23 15:[address]/REG/DC/SR - CT LUNG SCREENING - 09/21/22 09:22 EDT Technique: Axial CT images of the chest using low-dose technique. Referring provider counseled the patient on shared decision-making for LDCT screening. Additional counseling was provided on smoking cessation. Effective radiation dose total: DLP 35.4 mGycm, CTDIvol 1.2 mGy. Findings: Lung: Stable minimal centrilobular emphysema. No acute process. No suspicious pleural disease. Perifissural micronodule of the right minor fissure on series 4, image 72 is stable. Right middle and bilateral lower lobes benign calcified granulomata unchanged. Left upper lobe new micronodules anteriorly on image 56 and image 62, stable 4 mm nodule on image 73. Coronary artery calcifications: Stable [id number] Limited upper abdomen: Unremarkable Other: None IMPRESSION: LungRADS 2 - Benign Appearance: Continue annual screening with low dose Chest CT in 12 months. ##L2## This document has been electronically signed by: Sade Andre MD on 10/31/2024 09:54:56 Dictated By: Sade Andre MD Signed By: <Electronically signed by Sade Andre MD in OV> 10/31/24954 DD/ 3 TD/TT: 10/31/24953 Well Log[employer] Operator Mud Analysis: Procedure Note Donotuseinterpreter, Image - 10/31/[address] [place] [address] [address] Scan Report Signed Patient: Jennifer Barth IMR#: [id number] : 1965Acct:[id number] Age/Sex: 59 / FADM Date: 10/30/24 Loc: HO.CT Attending Dr: Jami Blunt PA-C Ordering Physician: Jami Blunt PA-C Date of Service: 10/30/24 Procedure(s): CT lung screening Accession Number(s): [id number] cc: Jami Blunt PA-C; Yeni Washington MD Report Number: [id number]: Total DLP = 1240.00 mGy-cm Reason for Exam: F17.210 - Nicotine dependence, cigarettes, uncomplicated CLINICAL HISTORY: F17.210 - Nicotine dependence, cigarettes, uncomplicated CT lung cancer screening (LDCT) Comparison: CT/DC/SR - CT LUNG SCREENING - 10/17/23 15:[address]/REG/DC/SR - CT LUNG SCREENING - 09/21/22 09:22 EDT Technique: Axial CT images of the chest using low-dose technique. Referring provider counseled the patient on shared decision-making for LDCT screening. Additional counseling was provided on smoking cessation. Effective radiation dose total: DLP 35.4 mGycm, CTDIvol 1.2 mGy. Findings: Lung: Stable minimal centrilobular emphysema. No acute process. No suspicious pleural disease. Perifissural micronodule of the right minor fissure on series 4, image 72 is stable. Right middle and bilateral lower lobes benign calcified granulomata unchanged. Left upper lobe new micronodules anteriorly on image 56 and image 62, stable 4 mm nodule on image 73. Coronary artery calcifications: Stable [id number]-[id number] Limited upper abdomen: Unremarkable Other: None IMPRESSION: LungRADS 2 - Benign Appearance: Continue annual screening with low dose Chest CT in 12 months. ##L2## This document has been electronically signed by: Sade Andre MD on 10/31/2024 09:54:56 Dictated By: Sade Andre MD Signed By: <Electronically signed by Sade Andre MD in OV> 10/31/2455 DD/ 3 TD/TT: 10/31/24953 Well Logging Operator Mud Analysis: [facility] External Provider IMG CT PROCEDURES Final Result * XR Lumbar Spine 2-3 Views (10/30/2024 12:35 PM EDT) Anatomical Region Laterality Modality Spine, L-spine Radiographic Charlene ging 10/30/2024 12:3 5 PM EDT Narrative 10/30/2024 1:09 PM EDT [place] [address] XRay Report Signed Patient: Jennifer Barth I MR#: [id number] : 1965 Acct:[id number] Age/Sex: 59 / F ADM Date: 10/30/24 Loc: HO.CT Attending Dr: Jami Blunt PA-C Ordering Physician: Yeni Washington MD Date of Service: 10/30/24 Procedure(s): XR lumbar spine 2-3V Accession Number(s): [id number] cc: Yeni Washington MD Reason for Exam: [...] Dev Crane MD 10/30/2024 01:06 PM EDT RP Dictated By: Dev Reddy MD Signed By: <Electronically signed by Dev Swain MD in OV> 10/30/24 1306 DD/ 1235 TD/TT: 10/30/24 1255 Well Logging Operator Mud Analysis: Procedure Note Donotuseinterpreter, Image - 10/30/2024 [place] [address] XRay Report Signed Patient: Jennifer Barth IMR#: [id number] : 1965Acct:[id number] Age/Sex: 59 / FADM Date: 10/30/24 Loc: HO.CT Attending Dr: Jami Blunt PA-C Ordering Physician: Yeni Washington MD Date of Service: 10/30/24 Procedure(s): XR lumbar spine 2-3V Accession Number(s): [id number] cc: Yeni Washington MD Reason for Exam: [...] Dev Crane MD 10/30/2024 01:06 PM EDT RP Dictated By: Dev Reddy MD Signed By: <Electronically signed by Dev Swain MDin OV> 10/30/24 1306 DD/ 1235 TD/TT: 10/30/24 1255 Well Logging Operator Mud Analysis: Yeni Washington MD IMG XR PROCEDURES Final Result * (ABNORMAL) POCT glycosylated hemoglobin (Hgb A1c) (10/24/2024 11:11 AM EDT) Hemoglobin A1C 6.0(A) 4.0 - 5.7 % QC Media Lot # [id number] Lot# Expiration Date Blood Capillary blood specimen / Unknown 10/24/2024 11:11 AM EDT Yeni Washington MD POINT OF CARE TEST ENTER/EDIT OR DERABLES Final Result * POCT glucose manually resulted (10/24/2024 11:09 AM EDT) Glucose Blood, POC 118 60 - 200 mg/dL QC Media Lot # [id number] Lot# Expiration Date ,462,542 Blood Capillary blood specimen / Unknown 10/24/2024 [...] time. Will monitor at her next exam. Estefania Pace OD OPHTH TOMOGRAPHY Final Result * (ABNORMAL) Lipid Panel with Reflex to Direct LDL (05/28/2024 12:13 PM EDT) Triglycerides 243(H) <150 mg/dL [facility] Comment:Desirable Triglyceri de: less than 150 mg/dLBorderline High Triglyceride 150-199 mg/dLHigh Triglyceride: 200-499 mg/dLVery High Triglyceride: greater than or equal to 5OO mg/dL Cholesterol 97 <200 mg/dL [facility] Comment:Desirable Cholestero l: less than 200 mg/dLBorderline High Cholesterol: 200-239 mg/dLHigh Cholesterol: greater than 239 mg/dL LDL Cholesterol Calculated 14 <100 mg/dL [facility] Comment:Desirable LDL: less than 100 mg/dLNear Optimal/Above Optimal LDL: 110- 129 mg/dLBorderline High LDL: 130-159 mg/dLHigh LDL: 160-189 mg/dLVery High LDL: greater than or equal to 190 mg/dL HDL Cholesterol 35(L) >40 mg/dL [facility] Comment:Desirable HDL: great er than 40 mg/dL Note: This HDL assay may give artificially low results in patients with liver disease. Blood 05/28/2024 12:1 3 PM EDT 05/28/2024 1:15 PM EDT Yeni Washington MD LAB BLOOD ORDERABLES Final Resul t [facility] [address] [place] [phone] * BI Mammogram Screening Tomosynthesis Bilateral (05/24/2024 3:00 PM EDT) Anatomical Region Laterality Modality Breast Bilateral Mammography 05/24/2024 3:00 PM EDT Narrative 06/01/2024 3:10 PM EDT [facility] [address] Qu[place], [place] [address] Mammography Report Signed Patient: Jennifer Barth I MR#: [id number] : 1965 Acct:[id number] Age/Sex: 59 / F ADM Date: 05/24/24 Loc: CARMELO Attending Dr: Yeni Washington MD Ordering Physician: Yeni Washington MD Results: 2Benign F indings Date of Service: 05/24/24 Follow Up: 1 Year From Orig ina Mammogram Procedure(s): MM tomosynthesis screening BI Accession Number(s): [id number] cc: Yeni Washington MD EXAMINATION: MM SCREENING [...] 06/01/24 1507 DD/ 1500 TD/TT: 05/24/24 1515 Well Logging Operator Mud Analysis: Procedure Note Donotuseinterpreter, Image - 06/01/2024 [facility] [address] [place] [address] Dr. Quintero, [place]ANILO [address] Mammography Report Signed Patient: Jennifer Barth [facility]#: [id number] : 1965Acct:[id number] Age/Sex: 59 / FADM Date: 05/24/24 Loc: HO.MAMMO Attending Dr: Yeni Washington MD Ordering Physician: Yeni Washington MDResults: 2Benign F indings Date of Service: 05/24/24Follow Up: 1 Year From Orig inal Mammogram Procedure(s): MM tomosynthesis screening BI Accession Number(s): [id number] cc: Yeni Washington MD EXAMINATION: MM SCREENING [...] for their next mammogram. Electronically signed by: Guerilne Frances DO 06/01/2024 03:07 PM EDT Dictated By: Guerline Frances DO Signed By: <Electronically signed by Guerline Frances DO in OV> 06/01/24 1507 DD/ 1500 TD/TT: 05/24/24 1515 Well Logging Operator Mud Analysis: us Yeni Washington MD IMG BI PROCEDURES Edited Result - Final * Albumin, Random Urine W/Creatinine (05/20/2024 9:56 AM EDT) Creatinine, Urine 141.41 mg/dL [facility] Microalbumin Urine 19.0 mg/L [facility] Microalbum Creatinine Ratio Ur 13.4 <30 ug/mg cr [facility] Comment:Albumin/Creatinine R atio Reference Ranges: Normal: < 30 ug/mg creatinine Microalbuminuria: 30 - 300 ug/mg creatinineClinical Albuminuria: > 300 ug/mg creatinine Urine 05/20/2024 9:56 AM EDT 05/20/2024 10:56 AM EDT Yeni Washington MD LAB URINE ORDERABLES Final Resul t Performing Organization Address City/[facility]/ZIP Co de Phone Number [facility] [address] [place] [phone] * Hepatitis C Antibody with Reflex to HCV, RNA, Quantitative, Real-Time PCR (02/13/2024 10:03 AM EST) Pathologist [facility] Hepatitis C Antibody Nonreactive Nonreactive [facility] Comment:Antibodies to HCV no t detected; does not exclude early acuteHCV infection. Blood Venous blood specimen / Unknown 02/13/2024 10:03 AM EST 02/13/2024 11:03 AM EST us Yeni Washington MD LAB BLOOD ORDERABLES Final Resul t Performing Organization Address City/[facility]/ZIP Co de Phone Number [facility] [address] [place] [phone] * HIV-1/2 Antigen and Antibodies, Fourth Generation, with Reflexes (04/12/2023 4:03 PM EST) HIV AB/AG Nonreactive Nonreactive [facility] Comment:HIV-1 p24 Ag and/or HIV-1/HIV-2 Ab not detected.A test result that is nonreactive does not exclude thepossibility of exposure to or infection with HIV-1 and/orHIV-2. Nonreactive results in this assay for individualswith prior exposure to HIV-1 and/or HIV-2 may be due toantigen and antibody levels that are below the limit ofdetection of this assay.The [employer] HIV Ag/Ab Combo assay result andsupplemental assay results should be interpreted inconjunction with the patient's clinical presentation,history and other laboratory results. If the results areinconsistent with clinical evidence, additional testing issuggested to confirm the result. 04/12/2023 4:03 PM EST 04/12/2023 4:03 PM EST us Generic External Data Provider LAB BLOOD ORDERAB LES Final Result Performing Organization Address City/[facility]/ZIP Co de Phone Number [facility] [address] [place] [phone] * THINPREP PAP (06/22/2020 6:38 AM [...] along with historic and current clinical information. Parts Delivery Driver : SEE COMMENT [employer] [facility] Comment: ARTURO CT(ASCP) CT screening location: [place] [address] Interpretation/R esult: Negative for intraepithelial lesion or malignancy. [employer] [facility] LMP: NONE GIVEN [facility] Prev. BX: NONE GIVEN [facility] Prev. PAP: NONE GIVEN [facility] ON [facility] SYSTEM SOURCE: None given [facility] Statement Of Adequacy: SEE COMMENT [employer] [facility] Comment: Satisfactory for evaluation. Endocervical/transformation zone component present. Age and/or menstrual status not provided 06/22/2020 6:38 AM EDT us Yeni Washington MD LAB PATHOLOGY ORDERABLES Final R esult [employer] [facility] [address] * HPV mRNA E6/E7 (06/22/2020 6:38 AM EDT) HPV nRNA E6/E7 Not Detected Not Detected [facility] Comment: Methodology: Pattern Cleaner-Mediated Amplification This assay detects E6/E7 viral messenger RNA (mRNA) from 14 high-risk HPV types (16,18,31,33,35,39,45,51,52,56,58,59,66,68). The analytical performance characteristics of this assay have been determined by [employer]. The modifications have not been cleared or approved by the FDA. This assay has been validated pursuant to the CLIA regulations and is used for clinical purposes. For additional information, please refer to http://education.KangaDo/faq/EKH798q3 (This link if provided for information/ educational purposes only.) 06/22/2020 6:38 AM EDT us Yeni Washington MD LAB BLOOD ORDERABLES Final Resul t [facility] [address] from Last 3 Months or Most Recently Relevant to Health Maintenance Insurance [facility] ONE CARE < 65 [place]IN[place] [id number] DENTAL - [facility] Care Teams Wire Mesh Knitter Relationship Specialty Start Date End Date Yeni Washington MD [address] [place] [address] PCP - General Family Medicine 02/27/18 Quoc Bermudez, RazD [address] [place] [address] Pharmacist Internal Medicine 02/14/22 [facility] 11/02/23
--- OUTSIDE RECORDS SUMMARY | 2024-12-03 12:31 | XMS_ITS | Encounter Summary ---
Author Organization [employer] Address [address] [facility] 7t [place] [address] Care Team Providers Care Counselor Supervisor Name Role Phone Yeni Willoughby MD Primary Care Provider [phone] Quoc Bermudez PharmD Unavailable [phone] Reason for Visit * Reason Comments Med Refill Encounter Details Date Type Department Care Team ([facility] [address] Contact Info) Description 12/03/2024 Refill [facility] [address] [place] [address] Yeni Willoughby MD [address] [place] [address] Social History Tobacco Use Types Packs/Day Years [...] Description 12/05/2024 9:00 AM EDT Office Visit [facility] AD[facility] DENTAL [address] [place] [phone] Andrew Servin DDS [address] [place] [address] 01/22/2025 11:00 AM EST Office Visit [facility] [address] [place] [address] Yeni Willoughby MD [address] [place] [address] 03/07/2025 12:45 PM EST Office Visit [facility] AD[facility] DENTAL [address] [place] [address] Crystal Melendrez [address] [place] [address] documented as of this encounter Goals Goal Patient Goal Type Associated Problems Recent Progress Patient-Stated? Author Blood Pressure < 140/90 Blood Pressure 120/70(2024 11:06 AM EDT) No Quoc Bermudez, PharmD Hemoglobin A1c < 7 Result Component 6(10/24/2024 11:11 AM EDT) No Quoc Bermudez, PharmD documented as of this encounter Visit Diagnoses Not on filedocumented in this encounter Additional Health Concerns Assessment Noted Time PHQ-9 Depression Total Score: 0 07/25/19 25 10:29 AM EDT documented as of this encounter Care Teams Counselor Supervisor Relationship Specialty Start Date End Date Yeni Willoughby MD [address] [place] [address] PCP - General Family Medicine 02/27/18 Quoc Bermudez, PharmD [address] [place] [address] Pharmacist Internal Medicine 02/14/22 [facility] 11/02/23 documented as of this encounter
--- OUTSIDE RECORDS SUMMARY | 2024-12-03 12:31 | XMS_ITS | Encounter Summary ---
Author Organization [employer] Address [address] [facility] 7t [place] [address] Care Team Providers Care Track Rider Name Role Phone Yeni Willoughby MD Primary Care Provider [phone] Quoc Bemrudez PharmD Unavailable [phone] Reason for Visit * Reason Comments Med Refill Encounter Details Date Type Department Care Team ([facility] st Contact Info) Description 06/05/2024 Refill [facility] [address] [place], [place] [phone] Yeni Willoughby MD [address] [place] [address] Chronic low back pain, unspecified back pain [...] Description 12/05/2024 9:00 AM EDT Office Visit [facility] ADULT DENTAL [address] [place] [phone] Andrew Servin DDS [address] [place] [address] 01/22/2025 11:00 AM EST Office Visit [facility] [address] [place] [address] Yeni Willoughby MD [address] [place] [address] 03/07/2025 12:45 PM EST Office Visit [facility] ADULT DENTAL [address] [place] [address] Crystal Melendrez [address] [place] [address] documented as of this encounter Goals Goal [...] documented as of this encounter Care Teams Track Rider Relationship Specialty Start Date End Date Yeni Willoughby MD [address] [place] [address] PCP - General Family Medicine 02/27/18 Quoc Bermudez PharmD [address] [place] [address] Pharmacist Internal Medicine 02/14/22 [facility] 11/02/23 documented as of this encounter
--- OUTSIDE RECORDS SUMMARY | 2024-12-03 12:31 | XMS_ITS | Encounter Summary ---
Author Organization [employer] Address [address] [facility] 7t [place] [address] Care Team Providers Care Fish Hatchery Specialist Name Role Phone Yeni Willoughby MD Primary Care Provider [phone] Quoc Bermudez PharmD Unavailable [phone] Encounter Details Date Type Department Care Team ([facility] Contact Info) Description 06/03/2022 Orders Only [facility] [address] [place], [place] [phone] Yeni Willoughby MD [address] [place] [address] Hypomagnesemia (Primary Dx); Lesion of parotid gland; [...] Description 12/05/2024 9:00 AM EDT Office Visit [facility] ADULT DENT[facility] [address] [place] [address] Andrew Servin DDS [address] [place] [address] 01/22/2025 11:00 AM EST Office Visit [facility] [address] [place] [address] Yeni Willoughby MD [address] [place] [address] 03/07/2025 12:45 PM EST Office Visit [facility] D[facility] [address] [place] [address] Maycol Melendrezaris [address] [place] [address] documented as of this encounter Goals Goal [...] documented as of this encounter Care Teams Fish Hatchery Specialist Relationship Specialty Start Date End Date Yeni Willoughby MD [address] [place] [address] PCP - General Family Medicine 02/27/18 Quoc Bermudez, PharmD [address] [place] [address] Pharmacist Internal Medicine 02/14/22 [facility] 11/02/23 documented as of this encounter
--- OUTSIDE RECORDS SUMMARY | 2024-12-03 12:31 | XMS_ITS | Encounter Summary ---
Author Organization [email or web address] Address [address] [place] [address] 7 [place] [address] Care Team Providers Care Hha Name Role Phone Yeni Willoughby MD Primary Care Provider [phone] Quoc Bermudez PharmD Unavailable [phone] Reason for Referral * Consultation (Routine) - Closed Specialty Diagnoses / Procedures Referred By Contjuan diego t Referred To Contact Allergy Diagnoses Pruritic rash Yeni Willoughby MD [address] [place] [address] Phone: tel: fax: Saúl Suarez MD [address] [place] [address] Drive [address] [place] [address] Phone: tel: fax: Referral ID Status Reason Start Date Expiration Date V isits Requested Visits Authorized [id number] Closed Specialty Services Required 01/09/2024 01/08/2025 1 1 Encounter Details Date Type Department Care Team (Late st Contact Info) Description 01/09/2024 Orders Only [facility] [address] [place], [place] [phone] Yeni Willoughby MD [address] [place], [place] [phone] Pruritic rash (Primary Dx) Social History Tobacco [...] Office Visit [facility] [address] [place] [address] Andrew Servin DDS [address] [place] [address] 01/22/2025 11:00 AM EST Office Visit [facility] [address] [place] [address] Yeni Willoughby MD [address] [place] [address] 03/07/2025 12:45 PM EST Office Visit [facility] [address] [place], [place] [phone] Crystal Melendrez [address] [place], [place] [phone] Scheduled Referrals Name Type Priority Associated Diagnoses [...] documented as of this encounter Care Teams Hha Relationship Specialty Start Date End Date Yeni Willoughby MD [address] [place] [address] PCP - General Family Medicine 02/27/18 Quoc Bermudez, PharmD [address] [place] [address] Pharmacist Internal Medicine 02/14/22 [facility] 11/02/23 documented as of this encounter
--- OUTSIDE RECORDS SUMMARY | 2024-12-03 12:31 | XMS_ITS | Encounter Summary ---
Author Organization [employer] Address [address] [facility] 7t [place] [address] Care Team Providers Care Site Project Manager Name Role Phone Yeni Willoughby MD Primary Care Provider [phone] Quoc Bermudez PharmD Unavailable [phone] Encounter Details Date Type Department Care Team ([facility] Contact Info) Description 05/26/2023 Orders Only [facility] [address] [place], [place] [phone] Yeni Willoughby MD [address] [place], [place] [phone] Postablative hypothyroidism (Primary Dx); Hypomagnesemia Social History [...] Description 12/05/2024 9:00 AM EDT Office Visit [facility] ADULT DENTAL [address] [place] [address] Andrew Servin DDS [address] [place] [address] 01/22/2025 11:00 AM EST Office Visit [facility] [address] [place] [address] Yeni Willoughby MD [address] [place] [address] 03/07/2025 12:45 PM EST Office Visit [facility] ADULT DENTAL [address] [place] [address] Crystal Melendrez [address] [place] [address] documented as of this encounter Goals Goal [...] Stimulating Hormone 0.05(L) 0.32 - 4.0 uIU/mL [facility] Comment:TSH 3rd Generation ( [facility]) Blood Venous blood specimen / Unknown 06/21/2023 11:29 AM EDT 06/21/2023 1:52 PM EDT us Yeni Willoughby MD LAB BLOOD ORDERABLES Final Resul t Performing Organization Address [facility] Co de Phone Number [facility] [address] [place] [phone] * T4, Free (06/21/2023 11:29 AM EDT) Free T4 (Free Thyroxine) 1.31 0.71 - 1.85 ng/dL [facility] Blood Venous blood specimen / Unknown 06/21/2023 11:29 AM EDT 06/21/2023 1:52 PM EDT Yeni Willoughby MD LAB BLOOD ORDERABLES Final Resul t Performing Organization Address [facility] Co de Phone Number [facility] [address] [place] [phone] documented in this encounter Visit Diagnoses Diagnosis Postablative hypothyroidism- Primary Other postablative hypothyroidism Hypomagnesemia Disorders of magnesium metabolism documented in this encounter Additional Health Concerns Assessment Noted Time PHQ-9 Depression Total Score: 0 05/25/19 24 9:46 AM EDT documented as of this encounter Care Teams Site Project Manager Relationship Specialty Start Date End Date Yeni Willoughby MD [address] [place] [address] PCP - General Family Medicine 02/27/18 Quoc Bermudez, PharmD [address] [place] [address] [place] [address] Pharmacist Internal Medicine 02/14/22 [facility] 11/02/23 documented as of this encounter
--- OUTSIDE RECORDS SUMMARY | 2024-12-03 12:31 | XMS_ITS | Encounter Summary ---
Author Organization [employer] Address [address] [facility] 7t [place] [address] Care Team Providers Care Bead Wrapper Name Role Phone Yeni Willoughby MD Primary Care Provider [phone] Quoc Bermudez PharmD Unavailable [phone] Encounter Details Date Type Department Care Team ([facility] Contact Info) Description 11/22/2023 Orders Only [facility] [address] [place], [place] [phone] Yeni Willoughby MD [address] [place], [place] [phone] Hypomagnesemia (Primary Dx); Hypocalcemia Social History Tobacco [...] Description 12/05/2024 9:00 AM EDT Office Visit [facility] [address] [place] [address] Andrew Servin DDS [address] [place] [address] 01/22/2025 11:00 AM EST Office Visit [facility] [address] [place] [address] Yeni Willoughby MD [address] [place] [address] 03/07/2025 12:45 PM EST Office Visit [facility] [address] [place] [address] Crystal Melendrez [address] [place] [address] Scheduled Orders Name Type Priority Associated Diagnoses [...] EST) Magnesium 2.2 1.6 - 2.6 mg/dL [facility] Blood Venous blood specimen / Unknown 02/06/2024 12:07 PM EST 02/06/2024 1:03 PM EST us Yeni Willoughby MD LAB BLOOD ORDERABLES Final Resul t [facility] [address] [place] [phone] * (ABNORMAL) TSH (01/12/2024 11:55 AM EST) Thyroid Stimulating Hormone 0.05(L) 0.32 - 4.0 uIU/mL [facility] Comment:TSH 3rd Generation ( [facility]) Blood Venous blood specimen / Unknown 01/12/2024 11:55 AM EST 01/12/2024 12:57 PM EST us Yeni Willoughby MD LAB BLOOD ORDERABLES Final Resul t Performing Organization Address [facility] de Phone Number [facility] [address] [place] [phone] * T4, Free (01/12/2024 11:55 AM EST) Free T4 (Free Thyroxine) 1.32 0.71 - 1.85 ng/dL [facility] Blood Venous blood specimen / Unknown 01/12/2024 11:55 AM EST 01/12/2024 12:57 PM EST us Yeni Willoughby MD LAB BLOOD ORDERABLES Final Resul t Performing Organization Address [facility] Co de Phone Number [facility] [address] [place] [phone] * (ABNORMAL) Magnesium (01/12/2024 11:55 AM EST) Pathologist [facility] Magnesium 1.3(LL) 1.6 - 2.6 mg/dL [facility] Comment:Critical value for M AG: Results called to and read back by:Naty Rodriguez Person calling: JIMMY Date: 01/12/24 Time: 1414 Blood Venous blood specimen / Unknown 01/12/2024 11:55 AM EST 01/12/2024 12:57 PM EST Yeni Willoughby MD LAB BLOOD ORDERABLES Final Resul t Performing Organization Address [facility] Co de Phone Number [facility] [address] [place] [phone] * (ABNORMAL) Basic Metabolic Panel (01/12/2024 11:55 AM EST) Sodium 141 135 - 145 mmol/L [facility] Potassium 4.1 3.3 - 5.1 mmol/L [facility] Chloride 106 96 - 108 mmol/L [facility] Carbon Dioxide 29 22 - 29 mmol/L [facility] Anion Gap 10(L) 12 - 20 [facility] Urea Nitrogen (BUN) 20(H) 9 - 16 mg/dL [facility] Creatinine, Serum 0.99 0.5 - 1.4 mg/dL [facility] Estimated Glomerular Filt Rate 57 [facility] Comment:Chronic Kidney Disea se: Estimated GFR < 60 mL/min/[id number] Kidney Disease: Estimated GFR < 15 mL/min/1.73m2 Glucose 97 60 - 115 mg/dL [facility] Calcium 9.3 8.4 - 10.2 mg/dL [facility] Blood Venous blood specimen / Unknown 01/12/2024 11:55 AM EST 01/12/2024 12:57 PM EST Yeni Willoughby MD LAB BLOOD ORDERABLES Final Resul t Performing Organization Address [facility] Co de Phone Number [facility] [address] [place] [phone] documented in this encounter Visit Diagnoses Diagnosis Hypomagnesemia- Primary Disorders of magnesium metabolism Hypocalcemia documented in this encounter Additional Health Concerns Assessment Noted Time PHQ-9 Depression Total Score: 0 05/25/19 24 9:46 AM EDT documented as of this encounter Care Teams Bead Wrapper Relationship Specialty Start Date End Date Yeni Willoughby MD [address] [place] [address] PCP - General Family Medicine 02/27/18 Quoc Bermudez, RazD [address] [place] [address] Pharmacist Internal Medicine 02/14/22 [facility] 11/02/23 documented as of this encounter
--- OUTSIDE RECORDS SUMMARY | 2024-12-03 12:31 | XMS_ITS | Encounter Summary ---
Author Organization [employer] Address [address] [facility] 7t [place] [address] Care Team Providers Care Benzene Still Utility Operator Name Role Phone Yeni Willoughby MD Primary Care Provider [phone] Quoc Bermudez PharmD Unavailable [phone] Encounter Details Date Type Department Care Team ([facility] Contact Info) Description 10/18/2023 Orders Only [facility] [address] [place], [place] [phone] Yeni Willoughby MD [address] [place] [address] Hypomagnesemia (Primary Dx); Dehydration; CHEMO (acute kidney injury) ([facility]); Type 2 diabetes mellitus without complication, without long-term current use of insulin ([facility]) Social History Tobacco Use Types Packs/Day [...] Description 12/05/2024 9:00 AM EDT Office Visit [facility] [address] [place] [address] Andrew Servin DDS [address] [place] [address] 01/22/2025 11:00 AM EST Office Visit [facility] [address] [place] [address] Yeni Willoughby MD [address] [place] [address] 03/07/2025 12:45 PM EST Office Visit [facility] [address] [place] [address] Crystal Melendrez [address] [place] [address] Scheduled Orders Name Type Priority Associated Diagnoses Orde r Schedule Basic Metabolic Panel Lab Routine Hypomagnesemia Dehydration CHEMO (acute kidney injury) ([facility]) Expected: 10/23/2023 (Approximate), Expires: 10/17/2024 Magnesium Lab Routine Hypomagnesemia Dehydration CHEMO (acute kidney injury) ([facility]) Expected: 10/23/2023 (Approximate), Expires: 10/17/2024 documented as [...] magnesium metabolism Dehydration CHEMO (acute kidney injury) Type 2 diabetes mellitus without complication, without long-term current use of insulin ([facility]) documented in this encounter Additional Health Concerns Assessment Noted Time PHQ-9 Depression Total Score: 0 05/25/19 24 9:46 AM EDT documented as of this encounter Care Teams Benzene Still Utility Operator Relationship Specialty Start Date End Date Yeni Willoughby MD [address] [place] [address] PCP - General Family Medicine 02/27/18 Quoc Bermudez, Shannen [address] [place] [address] Pharmacist Internal Medicine 02/14/22 [facility] 11/02/23 documented as of this encounter
--- OUTSIDE RECORDS SUMMARY | 2024-12-03 12:31 | XMS_ITS | Encounter Summary ---
Author Organization [employer] Address [address] [facility] 7t [place] [address] Care Team Providers Care Batter Scaler Name Role Phone Yeni Willoughby MD Primary Care Provider [phone] Quoc Bermudez PharmD Unavailable [phone] Reason for Visit * Reason Onset Date Comments Nurse Triage 12/08/2023 Encounter Details Date Type Department Care Team ([facility] st Contact Info) Description 12/08/2023 Telephone [facility] MED[facility]INE [address] [place], [place] [phone] Yeni Willoughby MD [address] [place], [place] [phone] Nurse Triage Social History Tobacco Use Types [...] 12/08/2023 10:56 AM EDT Called pt. Via Offer[employer] backup operator [phone] Jay. Pt. States that she has been itchy all over herbody x 1 week. Itchiness is worse on neck, arms and on her panty line. Pt. Unsure if it is the medications that she got sent home from [facility] with on 10/26/23 Gabapentin 100mg Three x a day and also Meclizine 25mg 1 tablet 3 times a day as needed. Pt does have rash on neck and hands. Pt denies any itchiness in throat or swelling in throat. Pt denies itchiness on head. I advised that pt. Needs to be seen today or tomorrow in [facility] walk in. Hours provided and [...] Description 12/05/2024 9:00 AM EDT Office Visit [facility] ADULT DENTAL [address] [place] [address] Andrew Servin DDS [address] [place] [address] 01/22/2025 11:00 AM EST Office Visit [facility] MEDICINE [address] [place] [address] Yeni Willoughby MD [address] [place] [address] 03/07/2025 12:45 PM EST Office Visit [facility]ULT [facility] [address] [place] [address] Crystal Melendrez [address] [place] [address] documented as of this encounter Goals Goal [...] documented as of this encounter Care Teams Batter Scaler Relationship Specialty Start Date End Date Yeni Willoughby MD [address] [place] [address] PCP - General Family Medicine 02/27/18 Quoc Bermudez PharmD [address] [place] [address] Pharmacist Internal Medicine 02/14/22 [facility] 11/02/23 documented as of this encounter
--- OUTSIDE RECORDS SUMMARY | 2024-12-03 12:31 | XMS_ITS | Encounter Summary ---
Author Organization [employer] Address [address] [facility] 7t [place] [address] Care Team Providers Care Leak Detection Engineer Name Role Phone Yeni Willoughby MD Primary Care Provider [phone] Quoc Bermudez PharmD Unavailable [phone] Encounter Details Date Type Department Care Team ([facility] Contact Info) Description 02/07/2024 Orders Only [facility] [address] [place], [place] [phone] Yeni Willoughby MD [address] [place], [place] [phone] Hyperkalemia (Primary Dx); Stage 3a chronic kidney [...] Description 12/05/2024 9:00 AM EDT Office Visit [facility]ULT [facility] [address] [place] [address] Andrew Servin DDS [address] [place] [address] 01/22/2025 11:00 AM EST Office Visit [facility] [address] [place] [address] Yeni Willoughby MD [address] [place] [address] 03/07/2025 12:45 PM EST Office Visit [facility]ULT [facility] [address] [place] [address] Crystal Melendrez [address] [place] [address] Scheduled Orders Name Type Priority Associated Diagnoses [...] Hyperpotassemia Stage 3a chronic kidney disease (CMS/HCC) (HCC) documented in this encounter Additional Health Concerns Assessment Noted Time PHQ-9 Depression Total Score: 0 05/25/19 9:46 AM EDT documented as of this encounter Care Teams Leak Detection Engineer Relationship Specialty Start Date End Date Yeni Willoughby MD [address] [place] [address] PCP - General Family Medicine 02/27/18 Quoc Bermudez PharmD [address] [place] [address] Pharmacist Internal Medicine 02/14/22 [facility] 11/02/23 documented as of this encounter
--- OUTSIDE RECORDS SUMMARY | 2024-12-03 12:31 | XMS_ITS | Encounter Summary ---
Author Organization [employer] Address [address] [facility] 7t [place] [address] Care Team Providers Care Carpenter Apprentice Name Role Phone Yeni Willoughby MD Primary Care Provider [phone] Quoc Bermudez PharmD Unavailable Encounter Details Date Type Department Care Team ([facility] Contact Info) Description 10/31/2024 Results Follow-Up [facility] [address] [place], [place] [phone] Yeni Willoughby MD [address] [place] [address] CT Lung Screening Low dose Social History Tobacco Use Types Packs/Day Years [...] Description 12/05/2024 9:00 AM EDT Office Visit [facility]ULT [facility] [address] [place] [address] Andrew Servin DDS [address] [place] [address] 01/22/2025 11:00 AM EST Office Visit [facility] [address] [place] [address] Yeni Willoughby MD [address] [place] [address] 03/07/2025 12:45 PM EST Office Visit [facility] [address] [place] [address] Crystal Melendrez [address] [place] [address] documented as of this encounter Goals Goal [...] documented as of this encounter Care Teams Carpenter Apprentice Relationship Specialty Start Date End Date Yeni Willoughby MD [address] [place] [address] PCP - General Family Medicine 02/27/18 Quoc Bermudez, PharmD [address] [place] [address] Pharmacist Internal Medicine 02/14/22 [facility] 11/02/23 documented as of this encounter
--- OUTSIDE RECORDS SUMMARY | 2024-12-03 12:31 | XMS_ITS | Encounter Summary ---
Author Organization [employer] Address [address] [facility] 7t [place] [address] Care Team Providers Care Telegraph Messenger Name Role Phone Yeni Willoughby MD Primary Care Provider [phone] Quoc Bermudez PharmD Unavailable [phone] Encounter Details Date Type Department Care Team ([facility] Contact Info) Description 06/21/2023 Orders Only [facility] [address] [place], [place] [phone] Yeni Willoughby MD [address] [place], [place] [phone] Social History Tobacco Use Types Packs/Day Years [...] Description 12/05/2024 9:00 AM EDT Office Visit [facility] [address] [place] [address] Andrew Servin DDS [address] [place] [address] 01/22/2025 11:00 AM EST Office Visit [facility] [address] [place] [address] Yeni Willoughby MD [address] [place] [address] 03/07/2025 12:45 PM EST Office Visit [facility] [address] [place] [address] Crystal Melendrez [address] [place] [address] documented as of this encounter Goals Goal [...] documented as of this encounter Care Teams Telegraph Messenger Relationship Specialty Start Date End Date Yeni Willoughby MD [address] [place] [address] PCP - General Family Medicine 02/27/18 Quoc Bermudez, Shannen [address] [place] [address] Pharmacist Internal Medicine 02/14/22 [facility] 11/02/23 documented as of this encounter
== END 2024-12-03 11:48 | disposition home or self-care (01) ==
LOC: HO.HSMS 10:25
PROVIDERS: PCP Family Medicine; Visit Provider Physician Assistant Medical
DX: G47.33 Obstructive sleep apnea (adult) (pediatric) (principal); R53.83 Other fatigue; J32.3 Chronic sphenoidal sinusitis; R42 Dizziness and giddiness
CPT/HCPCS: 99214

== ENCOUNTER → 2024-12-03 10:24 | Outpatient (BNVA) | payer OTHER, SELFPAY | PROVIDERS: PCP Family Medicine; Visit Provider Physician Assistant Medical | DX: G47.33 Obstructive sleep apnea (adult) (pediatric) (principal); Z99.89 Dependence on other enabling machines and devices; R53.83 Other fatigue; J32.3 Chronic sphenoidal sinusitis; R42 Dizziness and giddiness | CPT/HCPCS: 99212 ==

== ENCOUNTER 2024-12-17 10:59 | Outpatient (AMB) | payer OTHER, SELFPAY ==
[2024-12-17 11:09] VITALS: BP 106/70; PULSE 93; BMI 26.1
--- NOTE | 2024-12-17 11:09 | A.OFFVIS_ITS ---
Vital Signs 12/17/24 11:09 Height 5 ft 4 in Weight 152 lb BMI 26.1 BP 106/70 Blood Pressure Location Lt brachial Position Sitting Pulse 93 Intake Visit Reasons: 6 mo F/U Intake Note: Jennifer presents to in office follow up of 6 months. CC: Patient states that she can t' eat after 5 PM or she become very bloated, increased of gas. Patient would like to have EGD done with colonoscopy. Lead Shipper Required: No Accompanied by: Self / Same As Patient Allergies sulfamethoxazole (From Bactrim) Allergy (Severe, Verified 12/17/24 11:26) Itching trimethoprim (From Bactrim) Allergy (Severe, Verified 12/17/24 11:26) Itching codeine (Codeine) Allergy (Intermediate, Verified 12/17/24 11:26) NAUSEA & VOMITING, vomiting fluoxetine (FLUOXETINE) Allergy (Intermediate, Verified 12/17/24 11:26) NAUSEA & VOMITING ibuprofen (IBUPROFEN) Allergy (Intermediate, Verified 12/17/24 11:26) NAUSEA & VOMITING Sulfa (Sulfonamide Antibiotics) Allergy (Mild, Verified 12/17/24 11:26) itching HPI HPI 6 mo F/U: Details: Assessment & Plan (1) Irritable bowel syndrome with both constipation and diarrhea: Code(s): K58.2 - Mixed irritable bowel syndrome Category: Medical (2) Exocrine pancreatic insufficiency: Code(s): K86.81 - Exocrine pancreatic insufficiency Category: Medical (3) Pre-op examination: Code(s): Z01.818 - Encounter for other preprocedural examination Category: Medical (4) KY (obstructive sleep apnea): Comment: (On CPAP for Severe KY, 52 obstructive apneas on 11/17/09 sleep test) Code(s): G47.33 - Obstructive sleep apnea (adult) (pediatric) Category: Medical (5) COPD (chronic obstructive pulmonary disease): Code(s): J44.9 - Chronic obstructive pulmonary disease, unspecified Category: Medical Plan Stateless #[id number] She says she has been staying home a lot because she does not have transportation. She is doing better after stopping the creon and increasing the fiber. She will get CIC if she eats plantains-green, but she likes them!! IF this happens she eats more fruit. She is satisfied with this plan. SHe will get bloated if she eats after 5 pm or heavy things, so she controls this by eating earlier and civil laboratory technician fare. She is due for a colonoscopy as her last was in [address] Arzate and was negative. Her KY and COPD are well controlled and she denies any cardiac problems. There are no prior problems with anesthesia and sedation. NO ID problems There are no 1st degree relatives with CRC or polyps. ROV 6 mos. Orders: Orders Colonoscopy - GI Use Only Today Z01.818 - Encounter for other preprocedural examination Medications: New hydrocortisone 2.5% (Proctosol HC) 1 appl GA BID PRN 30 grams 0RF hemorrhoids peg 3350-electrolytes 236-22.74-6.74 -5.86 gram (Golytely) until fecal effluent is clear; do not exceed a total volume of 2,000 mL 240 mL PO Q10M 4,000 mL 0RF 1 day Z12.11 - Encounter for screening for malignant neoplasm of colon bisacodyl (Dulcolax (bisacodyl)) 10 mg (2 x 5 mg) PO BEDTIME 4 tabs 0RF 2 days Refilled psyllium husk (Reguloid (psyllium husk)) 0.4 grams PO BID 60 caps 6RF K58.2 - Mixed irritable bowel syndrome omeprazole 20 mg PO BID 60 caps 6RF COLONOSCOPY BIOPSY CORRESPONDENCE On 10/07/24 @ 10:26 Mohini Christiansen Wrote To Gastro Surgical Schedulers Patient came in looking to schedule her procedure. Thank you TODAY'S VISIT Stateless #Low Live [facility] Medical History (Updated 12/17/24 @ 11:28 by JOSE Pike) Exocrine pancreatic insufficiency CAD (coronary artery disease) KY (obstructive sleep apnea) KY on CPAP Graves' eye disease Transaminitis History of Graves' disease Pilonidal cyst Substance abuse Nicotine dependence, cigarettes, uncomplicated History of abnormal mammogram Hidradenitis suppurativa Hyperlipidemia Hypertension Surgical History Hx of cataract surgery History of colonoscopy (~2013) History of bunionectomy (~2011) History of axillary surgery (~2013) History of cholecystectomy History of umbilical hernia repair (~2016) Family History Paternal Aunt Breast cancer Mother Cancer of mandible Other KY (obstructive sleep apnea) Social History Household Members: Children Housing: Apartment Do you presently have visiting nurse or other home services: No Alcohol intake: never Patient Tobacco Use Status: Current everyday Tobacco user Tobacco use type: Cigarette Cigarette Packs Per Day: 0.75 Cigarettes Per Day: 15 Years Smoked: 36 (onset age 19) Substance Use Type: Crack/Cocaine service: No Current occupational status: unemployed Female Reproductive History Menstrual Age of Menarche: 9 Review of Systems Const Denies fatigue, Denies fever(s), Denies night sweats, Denies poor appetite and Denies weight loss ENT Reports Normal hearing present, Denies dental pain, Denies dysphagia, Denies hearing loss, Denies mouth pain, Denies odynophagia, Denies throat swelling, Denies tongue swelling and Reports other (Dentition adequate) Card Reports no additional complaints Resp Reports no additional complaints GI Details: Denies abdominal pain, Denies melena, Reports bloating, Denies hematochezia, Reports constipation, Denies GI cramping, Denies dysphagia, Denies excessive flatus, Denies early satiety, Reports heartburn, Denies diarrhea, Denies nausea, Denies odynophagia, Denies vomiting and Denies hematemesis Skin/Breast Denies pruritus, Denies lesions, Denies rash and Denies jaundice Neuro Reports Normal hearing present and Denies Abnormal speech present Endo Denies fatigue Aller/Immun Denies throat swelling and Denies tongue swelling Physical Exam Vital Signs: Last Vital Signs Pulse 93 12/17/24 11:09 BP 106/70 12/17/24 11:09 BMI result Body Mass Index 26.1 Const General: cooperative, no acute distress, well developed and well groomed Nutritional Appearance: average body habitus and well nourished Orientation/consciousness: oriented to person, oriented to place and oriented to time Limitations: language barrier HEENT Head: Yes normocephalic and Yes atraumatic Eyes Other: exophthalmos Pupils: Equal, round and reactive pupils present Neck Neck: Yes normal visual inspection and Yes no lymphadenopathy Thyroid: Thyroid normal Resp Effort & Inspection: normal respiratory effort and able to speak in complete sentences Auscultation: clear to auscultation bilaterally Cardio Rate: regular rate Rhythm: regular rhythm Heart sounds: Normal, physiologic split S2 sound present Peripheral pulses: radial pulses present and posterior tibial pulses present GI Inspection: No distended and No Abdominal panniculus present Palpation (GI): Soft to palpation, nontender, no guarding, not rigid and No hepatosplenomegaly present Percussion: Yes normal to percussion Auscultation: normal bowel sounds Rectal Exam - Female: deferred Skin General skin exam: no rashes or lesions noted, turgor normal, skin not dry, no jaundice, No spider nevi and no striae Rashes: no rashes Nails: normal Neuro General: oriented to person, oriented to place and oriented to time Cranial nerves: Yes Equal, round and reactive pupils present and Yes Normal hearing present Speech: No Abnormal speech present Extrem General: Yes normal to inspection, No clubbing, No cyanosis and No edema Psych Appearance: grossly normal and well kempt Mental Status: mental status grossly normal Speech and movement: Normal speech and movement present Affect: normal affect Attitude: cooperative Thought process: Circumstantial thought process present and not confabulating Thought content: Normal thought content present Insight: Limited insight present (Psych) Judgement: Limited judgement present (Psych) Assessment & Plan Assessment & Plan (1) Irritable bowel syndrome with both constipation and diarrhea: Code(s): K58.2 - Mixed irritable bowel syndrome Category: Medical (2) GERD (gastroesophageal reflux disease): Code(s): K21.9 - Gastro-esophageal reflux disease without esophagitis Category: Medical Plan Stateless #Mart[employer]a Live She is on Proctosol cream, psyllium, and omeprazole. - The patient is a 59-year-old female presenting for follow-up on constipation and GERD and is complaining of bloating and gas retention primarily at night, possibly associated with medications or a slow digestive process. - She notes relief of symptoms through tapping on her belly to facilitate gas passage. - she has only been taking her omeprazole once a day and since she is having symptoms later in the evening I advise her that she can be taking it twice a day. However, she says she is also taking ?a little pill? that apparently is prescribed by her primary care provider twice a day. She is not well acquainted at all with her medications and since polypharmacy and medication overlap could be concerning and could be driving her symptoms I ask her to bring her medications to her next visit. I am also not certain if insurance was a factor in the omeprazole. - History of hemorrhoids causing anal itching following colonoscopy prep, I suggest that she use a barrier like Vaseline prior to prepping for her next procedure to avoid this. She also has Proctosol cream prescribed. - we are going to try giving her simethicone to see if it can help with her e vening bloating and will go from there. Return office visit in 6 weeks Medications: New simethicone after meals 180 mg PO QID 120 caps 3RF 30 days Coding Level of Care Code Est Pt Level 3 (46643) Diagnoses Irritable bowel syndrome with both constipation and diarrhea K58.2 GERD (gastroesophageal reflux disease) K21.9
== END 2024-12-17 11:59 | disposition home or self-care (01) ==
LOC: HO.HGI 10:59
PROVIDERS: PCP Family Medicine; Visit Provider Nurse Practitioner
DX: K58.2 Mixed irritable bowel syndrome (principal); K21.9 Gastro-esophageal reflux disease without esophagitis
CPT/HCPCS: 99213

== ENCOUNTER → 2024-12-17 10:59 | Outpatient (BNVA) | payer OTHER, SELFPAY | PROVIDERS: PCP Family Medicine; Visit Provider Nurse Practitioner | DX: Z01.818 Encounter for other preprocedural examination (principal); K58.2 Mixed irritable bowel syndrome; K86.81 Exocrine pancreatic insufficiency; G47.33 Obstructive sleep apnea (adult) (pediatric); Z99.89 Dependence on other enabling machines and devices; J44.9 Chronic obstructive pulmonary disease, unspecified | CPT/HCPCS: 99212 ==

== ENCOUNTER 2025-01-27 10:12 | Outpatient (REF) | payer OTHER, SELFPAY ==
--- OUTSIDE RECORDS SUMMARY | 2025-01-22 11:00 | XMS_ITS | Encounter Summary ---
Author Organization [employer] Address [address] [place] [address] [address] [place] [address] Care Team Providers Care Data Control Assistant Name Role Phone Yeni Willoughby MD Primary Care Provider [phone] Quoc Bermudez PharmD Unavailable [phone] Reason for Visit * Reason Comments Follow-up Hypertension Diabetes Encounter Details Date Type Department Care Team ([facility] st Contact Info) Description 01/22/2025 11:00 AM EST Office Visit [facility] [address] [place] [address] Yeni Willoughby MD [address] [place], [place] [id number] Primary hypertension (Primary Dx); Dyslipidemia; Metabolic dysfunction-associate d steatotic liver disease (MASLD); Type 2 diabetes mellitus without complication, without long-term current use of insulin (HCC); Postablative hypothyroidism; History of Graves' disease; Gastroesophageal reflux disease, unspecified whether esophagitis present; Hypomagnesemia; Current mild episode of major depressive disorder, unspecified whether recurrent (CMS/HCC); Obstructive sleep apnea syndrome; Tobacco use; COPD with asthma (CMS/HCC) (HCC); Chronic low back pain without sciatica, unspecified back pain laterality; Irritable bowel syndrome, unspecified type; Ganglion cyst of dorsum of left wrist Social History Tobacco Use Types Packs/Day Years [...] Sign Reading Time Taken Comments Blood Pressure 120/80 01/22/2025 11:30 AM EST Pulse 100 01/22/2025 11:09 AM EST Temperature 36.2 C (97.1 F) 01/22/2025 11:09 AM EST Respiratory Rate 17 01/22/2025 11:09 AM EST Oxygen Saturation 98% 01/22/2025 11:09 AM EST Inhaled Oxygen Concentration - - Weight 68.8 kg (151 lb 9.6 oz) 01/22/2025 11:09 AM EST Height 162 cm (5' 3.78 ) 01/22/2025 11:09 AM EST Body Mass Index 26.2 01/22/2025 11:09 AM EST documented in this encounter Progress Notes * Yeni Willoughby MD - 01/22/2025 11:00 AM EST Subjective Jennifer Barth is a 59 y.o. female who has hypertension, DM2, postoperative hypothyroidism for Graves'disease, and COPD, and patient presents for follow-up of chronic conditions. Background: Problem List[1] Our last encounter was 10/24/2024. We discussed about her back pain. Prescribed a lidocaine patch. She declined physical therapy referral. Still waiting for colonoscopy date. Advised her to schedule appointment with accountant auditor. Interval history: Lidocaine patch required prior authorization, which was denied. LDCT Lung RADS 2 on 10/30/24 X-ray on 10/30/2024 showed multilevel thoracolumbar spondylosis pronounced at L4-5 and L5-S1 with levoconvex scoliosis. Overall worsening since prior exam in 2017. Seen by [facility] neurology/sleep medicine clinic on 12/03/2024 for follow-up of [place]. CPAP compliance and therapy response was reviewed. 100% compliance to APAP 5 to 20 cm H2O. Mild [place]. New supplies were prescribed. Seen by [facility] GI provider on 12/17/2024 for IBS and GERD. Prescribed simethicone. MTM visit on 01/17/2025. Cleaned up our med list. Today: - Reports daily back pain, worsens with sitting for prolonged periods - Denies chest pain - Reports no shortness of breath - Reports slow digestive system, unable to eat after 5:00 PM due to discomfort at night, sometimes needs to get up at night because of digestive symptoms - Reports occasional abdominal discomfort described as prickling sensation - Awaiting appointment for colonoscopy and upper endoscopy (EGD), has medications at home for preparation - Reports history of left wrist ganglion cyst, previously evaluated, did not attend prior scheduledsurgery due to fear, now interested in rescheduling - 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, difficulty holding objects, concerned about dropping items - Reports chronic nasal discharge, frequent watery nasal drainage, occasional minor nosebleeds after using cocaine - Reports past cocaine use, currently uses infrequently (about three times), denies current regularuse, expresses desire to stop - Reports eating sweets to prevent blood sugar from dropping, denies episodes of low blood sugar - Reports being prescribed multiple medications, feels she has a pharmacy at home - Reports being seen by endocrinology for thyroid issues - Denies current alcohol use Review of Systems Constitutional: Negative for activity change, appetite change and fever. HENT: Positive for rhinorrhea. Respiratory: Negative for shortness of breath. Cardiovascular: Negative for chest pain. Objective Vitals: 01/22/25 1109 01/22/25 1130 BP: 90/60 120/80 BP Location: Left arm Patient Position: Sitting BP Cuff Size: Adult Pulse: 100 Resp: 17 Temp: 97.1 ??F (36.2 ??C) TempSrc: Oral SpO2: 98% Weight: 151 lb 9.6 oz (68.8 kg) Height: 5' 3.78 (1.62 m) Physical Exam Constitutional: General: She is not in acute distress. Appearance: Normal appearance. She is not ill-appearing. HENT: Head: Normocephalic and atraumatic. Nose: Rhinorrhea present. Mouth/Throat: Mouth: Mucous membranes are moist. Eyes: Extraocular Movements: Extraocular movements intact. Pupils: Pupils are equal, round, and reactive to light. Cardiovascular: Rate and Rhythm: Normal rate and regular rhythm. Heart sounds: No murmur heard. Pulmonary: Effort: Pulmonary effort is normal. No respiratory distress. Breath sounds: Normal breath sounds. No wheezing or rhonchi. Musculoskeletal: Comments: A cyst on left wrist, radial side Skin: General: Skin is warm. Neurological: Mental Status: She is alert. Mental status is at baseline. Psychiatric: Mood and Affect: Mood normal. Results: Recent Results (from the past 18 weeks) POCT glucose manually resulted Collection Time: 10/24/24 11:09 AM Result Value Ref Range Glucose Blood, POC 118 60 - 200 mg/dL QC Media Lot # [id number] Lot# Expiration Date 2276,026 POCT glycosylated hemoglobin (Hgb A1c) Collection Time: 10/24/24 11:11 AM Result Value Ref Range Hemoglobin A1C 6.0 (A) 4.0 - 5.7 % QC Media Lot # [id number] Lot# Expiration Date [id number] Lung Cancer Screning Collection Time: 11/01/24 12:00 AM Result Value Ref Range Lung CT LUNGRADS 2 LUNGRADS 1, LUNGRADS 2 POCT glycosylated hemoglobin (Hgb A1c) Collection Time: 01/22/25 11:23 AM Result Value Ref Range Hemoglobin A1C 6.0 (A) 4.0 - 5.7 % QC Media Lot # [id number] Lot# Expiration Date [id number] POCT glucose manually resulted Collection Time: 01/22/25 11:25 AM Result Value Ref Range Glucose Blood, POC 129 60 - 200 mg/dL QC Media Lot # [id number] Lot# Expiration Date [id number] Lab Results Component Value Date NA 141 05/20/2024 K 4.8 05/20/2024 CL 106 05/20/2024 CO2 26 05/20/2024 BUN 26 (H) 05/20/2024 CREATININE 1.15 05/20/2024 CRCLCALCPH 20.7 10/17/2023 EGFR 48 05/20/2024 GLUCOSE 88 05/20/2024 TOTALBILIRUB 0.9 05/20/2024 AST 23 05/20/2024 ALT 18 05/20/2024 TOTPROTEIN 8.3 (H) 05/20/2024 ALB 4.2 05/20/2024 ALP 85 05/20/2024 Lab Results Component Value Date TRIG 243 (H) 05/28/2024 CHOL 97 05/28/2024 LDLCHOLCAL 14 05/28/2024 HDL 35 (L) 05/28/2024 Lab Results Component Value Date HGBA1C 6.0 (A) 01/22/2025 MICROALBUR 19.0 05/20/2024 CREATUR 141.41 05/20/2024 MICROALBCREU 13.4 05/20/2024 Lab Results Component Value Date WBC 10.0 02/13/2024 HGB 11.8 (L) 02/13/2024 HCT 37.7 02/13/2024 PLT 258 02/13/2024 MCV 92.2 02/13/2024 Lab Results Component Value Date TSH 4.94 (H) 06/28/2024 TSH 4.96 (H) 05/20/2024 TSH 0.28 (L) 03/19/2024 FREET4 1.01 06/28/2024 FREET4 1.14 05/20/2024 FREET4 1.34 03/19/2024 Lab Results Component Value Date ZBHR27HIOJE 43.6 02/13/2024 FIB-4 Calculation: 1.07 at 02/13/2024 10:03 AM Calculated from: SGOT/AST: 22 U/L at 02/13/2024 10:03 AM SGPT/ALT: 23 U/L at 02/13/2024 10:03 AM Platelets: 258 X10*3/uL at 02/13/2024 10:03 AM Age: 58 years Primary hypertension: - Hypertension is stable. - Continue current management. No changes to antihypertensive regimen discussed. Type 2 diabetes mellitus without complication, without long-term current use of insulin ([facility]): - Glycemic control discussed; no hypoglycemia reported. - Continue current diabetes management. No changes to therapy discussed. Tobacco use: - Ongoing cocaine use reported; patient expressed desire to quit. - Encouraged cessation of cocaine use. COPD with asthma ([facility]/HCC) ([facility]): - No dyspnea or chest pain reported. - Continue current management. No changes to therapy discussed. Chronic low back pain without sciatica, unspecified back pain laterality: - Chronic low back pain persists, with daily symptoms. - Continue current management. No new interventions discussed. Ganglion cyst, left wrist: - Left wrist ganglion cyst; patient interested in surgical intervention. - Scheduled surgical consultation with orthopedics for March 05, 2025 at 10:[address] Hartley. Need for colonoscopy and EGD: - Due for colonoscopy and EGD; patient awaiting appointment scheduling. - Called gastroenterology department to request scheduling of colonoscopy and EGD; requested that patient be contacted with appointment details. Assessment/Plan Problem List Items Addressed This Visit Depression - worsening depression and anxiety due to her unstable living condition and financial hardship - positive SDOH screen - patient declines service today Dyslipidemia Current medication: Atorvastatin 20 mg nightly Previous medication: pravastatin 80 mg qhs Lab: 05/28/24 TC 97; TG 243; HDL 35; LDL 14 Continue working on lifestyle modificaiton Consider higher potency statin due to mild CAD, although her LDL is at goal Gastroesophageal reflux disease - continue omeprazole 20 mg daily Hypertension - Primary - Goal BP < 130/80 per ACC/AHA. - Home BP well controlled, between 110-120 over 70-80. Heart rate: 80-90 - Currently prescribed medications: amlodipine 5 mg daily; olmesartan 20 mg daily; clonidine 0.2 mgqhs - Treatment Hx: diltiazem was changed to amlodipine in Sep 2023 due to bradycardia when she was hospitalized; lisinopril was held in Sep 2023 due to CHEMO, likely pre-renal. Lisinopril - hctz combo wasstarted in Oct 2023, yet discontinued due to rash. Changed losartan to olmesartan. Spironolactone was discontinued due to elevated K. - Discussed about the importance of lifestyle modification and medication adherence. - Avoid cardiotoxic drug use (cocaine) - Check BP at home since she has BP monitor. - co management with our pharmacist through [facility] Obstructive sleep apnea syndrome - following with sleep medicine clinic at [facility], last seen in Nov 2024 - home sleep study on 12/15/22, auto PAP 5-20 cm H2O was recommended - recent compliance report shows 100% adherence - continue AutoPAP Postablative hypothyroidism - History of Graves' disease - Radioactive iodine ablation in 2009 - Started seeing a new accountant auditor, Dr. Mccracken, initial visit on 02/08/24. - Current replacement: Levothyroxine 100 mcg daily. - last TSH 4.94 on 06/28/2024; free T4= 1.01 - Dr. Mccracken recommends that patient completes 6 weeks of levothyroxine 100 mcg, then recheck thyroidfunction test before adjusting its dose. Patient was referred to Dr. Herbert for Graves' eye disease. - Recommended to check appointment with endocrinology office Type 2 diabetes mellitus (HCC) - A1c 6.0% on on 01/22/2025, stable for last 1 year - Emphasized the importance of SMBG and lifestyle modifications. - Continue metformin ER 1000 mg BID - Continue dulaglutide 0.75 mg weekly - Last eye exam: Hx Graves ophthalmopathy. PVD. Seen by [facility] on 01/03/24 - Last comprehensive foot exam: 04/23/24; patient is having foot pain; will prescribe diabetic footwears - Last microalbumin test : 05/20/24 UACR 13.4 - Last FLP: 05/28/24 TC 97; TG 243; HDL 35; LDL 14 - Last dental exam: ? Relevant Orders POCT glucose manually resulted (Completed) POCT glycosylated hemoglobin (Hgb A1c) (Completed) COPD with asthma ([facility]) (HCC) - PFT in 2008 showed moderate-severe obstructive airway disease with complete reversibility. - She also has [place]. - Current medications: Maintenance: Singulair 10 mg at bedtime; umeclidinium (Incruse).; fluticasone propionate / salmeterol (Wixela) -Rescue: DuoNeb prn; Albuterol HFA prn - Treatment Hx: She has tried Incruse Ellipta, but had intolerance / adverse reaction. Pt c/o dry mouth with Spiriva, but would like to resume because she reported adverse reaction and ineffectiveness with Budesonide - formoterol - glycopyrrolate (Breztri). Tried to change tiotropium (Spiriva) to umeclidinium (Incruse). Unable to get coverage for titropium. Consider fluticasone / umeclidinium / vilanterol (Trelegy). - Stop smoking. - will repeat Pulm Function Test in near future Tobacco use -Smoking Hx > 30 pack years -last lung cancer screening CT Lung RADS 2 on 10/30/24 -Discussed about the importance of smoking cessation today. -previously tried nicotine replacement which was ineffective -tried Chantix -continue assessing her stage of change History of Graves' disease Hypomagnesemia - pt is taking thiazide-diuretic - continue magnesium oxide - encouraged to improve adherence - check lab again Metabolic dysfunction-associated steatotic liver disease (MASLD) - following with [facility] GI - hx reactive Hep C antibody, negative in 2020 and 2021 - most recent US on 05/08/23 mildly increased echogenicity of liver. - fibrosis stage F0 - FIB4 index 0.96 - continue working on lifestyle modifications Chronic back pain - judicious use of APAP and NSAID - lidocaine patch was not covered by her insurance - topical diclofenac prn IBS (irritable bowel syndrome) - following with [facility] GI - prescribed simethicone - called [facility] Gi office today and left a message that patient is waiting for EGD and colonoscopy evaluation Ganglion cyst of dorsum of left wrist - patient was seen by [facility] Ortho, and was scheduled for excisonal biopsy - patient cancelled because she was afraid of a potential complication - patient is now interested in getting the biopsy done; we called [facility] Ortho. Spoke with Annette, who has generously given patient an appointment on March 05, 2025 at 10:45 am. Allergies[2] Current Outpatient Medications Medication Instructions acetaminophen (TYLENOL 8 HOUR) 650 mg, Oral, Every 6 hours during day albuterol 108 (90 Base) MCG/ACT inhaler Inhale 2 puffs every 4 hours as needed for difficulty breathing. Maximum 8 puffs per day. Alcohol Swabs (SM Alcohol Prep) 70 % pads USE DIRECTED FOUR TIMES DAILY amLODIPine (NORVASC) 5 mg, Oral, Every morning Artificial Tears ophthalmic solution 1 drop in both eyes 4 times a day aspirin (Aspirin Low Dose) 81 MG EC tablet TAKE 1 TABLET BY MOUTH EVERY MORNING atorvastatin (Lipitor) 20 MG tablet TAKE 1 TABLET BY MOUTH AT BEDTIME Blood Pressure Monitoring (Omron 3 Series BP Monitor) device USE TO CHECK BLOOD PRESSURE ONCE DAILY cloNIDine (Catapres) 0.2 MG tablet TAKE 1 TABLET BY MOUTH AT BEDTIME D3-1000 25 MCG (1000 UT) capsule TAKE 2 CAPSULES BY MOUTH ONCE DAILY IN THE MORNING fluticasone (Flonase) 50 MCG/ACT nasal spray spray 1 spray by intranasal route every day in each nostril glucose blood (FREESTYLE LITE) test strip USE DIRECTED TO TEST BLOOD SUGAR THREE TIMES DAILY Incruse Ellipta 62.5 mcg, Inhalation, Daily levothyroxine (SYNTHROID, LEVOXYL) 75 mcg, Every morning magnesium oxide (Mag-Ox) 400 MG tablet TAKE 1 TABLET BY MOUTH TWICE DAILY IN THE MORNING AND AT BEDTIME metFORMIN XR (Glucophage-XR) 500 MG 24 hr tablet TAKE 2 TABLETS BY MOUTH TWICE DAILY IN THE MORNINGAND EVENING montelukast (SINGULAIR) 10 mg, Oral, Nightly olmesartan (BENICAR) 20 mg, Oral, Every morning omeprazole (PriLOSEC) [address] capsule TAKE 1 CAPSULE BY MOUTH AT BEDTIME Oyster Shell Calcium 500 mg, Oral, Every morning Probiotic Product (Advanced Probiotic-14) capsule Take 1 capsule by mouth every morning Reguloid 400 MG capsule Simethicone Ultra Strength 180 MG capsule TAKE 1 CAPSULE BY MOUTH FOUR TIMES DAILY AFTER MEALS TRUEplus Lancets 33G misc TEST BLOOD SUGAR FOUR TIMES DAILY Trulicity 0.75 MG/0.5ML solution auto-injector INJECT ONE PEN (=0.75MG) SUBCUTANEOUSLY ONCE A WEEK DIRECTED Follow-up: 3 mo or sooner if any problem arises. This note was drafted using Ambient (AI) technology. The patient/patient's guardian has been informed and has consented to the use of this technology [1] Patient Active Problem List Diagnosis Allergic rhinitis Chronic sinusitis Prolapse of female pelvic organs Depression Diastasis recti Dyslipidemia Gastroesophageal reflux disease Hidradenitis suppurativa Hypertension Substance use Obstructive sleep apnea syndrome Postablative hypothyroidism Type 2 diabetes mellitus (HCC) COPD with asthma (CMS/HCC) (HCC) Tobacco use History of Graves' disease Lesion of parotid gland Exophthalmos Hypomagnesemia Overweight Mild CAD Metabolic dysfunction-associated steatotic liver disease (MASLD) Hepatomegaly Pancreatic insufficiency Pulmonary nodules Dental calculus Periodontal disease Localized gingival recession Chronic back pain Health care maintenance Localized aggressive severe periodontitis IBS (irritable bowel syndrome) Ganglion cyst of dorsum of left wrist [2] Allergies Allergen Reactions Codeine Other reaction(s): Rash, Rash Fluoxetine Other reaction(s): unspecified Ibuprofen Other reaction(s): unspecified Sulfamethoxazole Other reaction(s): unspecified Sulfamethoxazole-Trimethoprim Other Reaction(s): rash and itch Trimethoprim Other reaction(s): unspecified Meclizine Rash documented in this encounter Miscellaneous Notes * Assessment & Plan Note - Yeni Willoughby MD - 01/22/2025 10:27 PM ESTAssociated Problem(s): Ganglion cyst of dorsum of left wrist - patient was seen by [facility] Ortho, and was scheduled for excisonal biopsy - patient cancelled because she was afraid of a potential complication - patient is now interested in getting the biopsy done; we called [facility] Ortho. Spoke with Annette, who has generously given patient an appointment on March 05, 2025 at 10:45 am. * Assessment & Plan Note - Yeni Willoughby MD - 01/22/2025 10:26 PM ESTAssociated Problem(s): Tobacco use -Smoking Hx > 30 pack years -last lung cancer screening CT Lung RADS 2 on 10/30/24 -Discussed about the importance of smoking cessation today. -previously tried nicotine replacement which was ineffective -tried Chantix -continue assessing her stage of change * Assessment & Plan Note - Yeni Willoughby MD - 01/22/2025 10:26 PM ESTAssociated Problem(s): Obstructive sleep apnea syndrome - following with sleep medicine clinic at [facility], last seen in Nov 2024 - home sleep study on 12/15/22, auto PAP 5-20 cm H2O was recommended - recent compliance report shows 100% adherence - continue AutoPAP * Assessment & Plan Note - Yeni Willoughby MD - 01/22/2025 10:23 PM ESTAssociated Problem(s): COPD with asthma (CMS/HCC) (HCC) - PFT in 2008 showed moderate-severe obstructive airway disease with complete reversibility. - She also has [place]. - Current medications: Maintenance: Singulair 10 mg at bedtime; umeclidinium (Incruse).; fluticasone propionate / salmeterol (Wixela) -Rescue: DuoNeb prn; Albuterol HFA prn - Treatment Hx: She has tried Incruse Ellipta, but had intolerance / adverse reaction. Pt c/o dry mouth with Spiriva, but would like to resume because she reported adverse reaction and ineffectiveness with Budesonide - formoterol - glycopyrrolate (Breztri). Tried to change tiotropium (Spiriva) to umeclidinium (Incruse). Unable to get coverage for titropium. Consider fluticasone / umeclidinium / vilanterol (Trelegy). - Stop smoking. - will repeat Pulm Function Test in near future * Assessment & Plan Note - Yeni Willoughby MD - 01/22/2025 10:23 PM ESTAssociated Problem(s): Chronic back pain - judicious use of APAP and NSAID - lidocaine patch was not covered by her insurance - topical diclofenac prn * Assessment & Plan Note - Yeni Willoughby MD - 01/22/2025 10:23 PM ESTAssociated Problem(s): Depression - worsening depression and anxiety due to her unstable living condition and financial hardship - positive SDOH screen - patient declines service today * Assessment & Plan Note - Yeni Willoughby MD - 01/22/2025 10:22 PM ESTAssociated Problem(s): Hypomagnesemia - pt is taking thiazide-diuretic - continue magnesium oxide - encouraged to improve adherence - check lab again * Assessment & Plan Note - Yeni Willoughby MD - 01/22/2025 10:22 PM ESTAssociated Problem(s): IBS (irritable bowel syndrome) - following with [facility] - prescribed simethicone - called [facility] Gi office today and left a message that patient is waiting for EGD and colonoscopy evaluation * Assessment & Plan Note - Yeni Willoughby MD - 01/22/2025 10:20 PM ESTAssociated Problem(s): Gastroesophageal reflux disease - continue omeprazole 20 mg daily * Assessment & Plan Note - Yeni Willoughby MD - 01/22/2025 10:19 PM ESTAssociated Problem(s): Metabolic dysfunction-associated steatotic liver disease (MASLD) - following with [facility] - hx reactive Hep C antibody, negative in 2020 and 2021 - most recent US on 05/08/23 mildly increased echogenicity of liver. - fibrosis stage F0 - FIB4 index 0.96 - continue working on lifestyle modifications * Assessment & Plan Note - Yeni Willoughby MD - 01/22/2025 10:19 PM ESTAssociated Problem(s): Postablative hypothyroidism - History of Graves' disease - Radioactive iodine ablation in 2009 - Started seeing a new accountant auditor, Dr. Mccracken, initial visit on 02/08/24. - Current replacement: Levothyroxine 100 mcg daily. - last TSH 4.94 on 06/28/2024; free T4= 1.01 - Dr. Mccracken recommends that patient completes 6 weeks of levothyroxine 100 mcg, then recheck thyroidfunction test before adjusting its dose. Patient was referred to Dr. Herbert for Graves' eye disease. - Recommended to check appointment with endocrinology office * Assessment & Plan Note - Yeni Willoughby MD - 01/22/2025 10:19 PM ESTAssociated Problem(s): Type 2 diabetes mellitus (HCC) - A1c 6.0% on on 01/22/2025, stable for last 1 year - Emphasized the importance of SMBG and lifestyle modifications. - Continue metformin ER 1000 mg BID - Continue dulaglutide 0.75 mg weekly - Last eye exam: Hx Graves ophthalmopathy. PVD. Seen by [facility] on 01/03/24 - Last comprehensive foot exam: 04/23/24; patient is having foot pain; will prescribe diabetic footwears - Last microalbumin test : 05/20/24 UACR 13.4 - Last FLP: 05/28/24 TC 97; TG 243; HDL 35; LDL 14 - Last dental exam: ? * Assessment & Plan Note - Yeni Willoughby MD - 01/22/2025 10:17 PM ESTAssociated Problem(s): Dyslipidemia Current medication: Atorvastatin 20 mg nightly Previous medication: pravastatin 80 mg qhs Lab: 05/28/24 TC 97; TG 243; HDL 35; LDL 14 Continue working on lifestyle modificaiton Consider higher potency statin due to mild CAD, although her LDL is at goal * Assessment & Plan Note - Yeni Willoughby MD - 01/22/2025 10:17 PM ESTAssociated Problem(s): Hypertension - Goal BP < 130/80 per ACC/AHA. - Home BP well controlled, between 110-120 over 70-80. Heart rate: 80-90 - Currently prescribed medications: amlodipine 5 mg daily; olmesartan 20 mg daily; clonidine 0.2 mgqhs - Treatment Hx: diltiazem was changed to amlodipine in Sep 2023 due to bradycardia when she was hospitalized; lisinopril was held in Sep 2023 due to CHEMO, likely pre-renal. Lisinopril - hctz combo wasstarted in Oct 2023, yet discontinued due to rash. Changed losartan to olmesartan. Spironolactone was discontinued due to elevated K. - Discussed about the importance of lifestyle modification and medication adherence. - Avoid cardiotoxic drug use (cocaine) - Check BP at home since she has BP monitor. - co management with our pharmacist through [facility] documented in this encounter Plan of Treatment Upcoming Encounters Date Type Department Care Team (Late st Contact Info) Description 03/07/2025 12:45 PM EST Office Visit [facility] ADULT DENTAL [address] [place], [place] [phone] Parvin Crystal [address] [place] [address] documented as of this encounter Goals Goal Patient Goal Type Associated Problems Recent Progress Patient-Stated? Author Blood Pressure < 140/90 Blood Pressure 120/80(2024 11:30 AM EST) Quoc Smith PharmD Hemoglobin A1c < 7 Result Component 5.8( 10:43 AM EST) No Quoc Bermudez PharmD Help patients manage their type 2 diabetes Care Plan Help patients manage their type 2 diabetes No Thalia Rangel Weekly blood pressure task Care Plan Weekly blood pressure task No Thalia Rangel Help patients manage their type 2 diabetes Care Plan Help patients manage their type 2 diabetes No Thalia Rangel Patient has chronic kidney disease Care Plan Patient has chronic kidney disease No Thalia Rangel Weekly blood pressure task Care Plan Weekly blood pressure task No Thalia Rangel Patient has chronic kidney disease Care Plan Patient has chronic kidney disease No Thalia Rangel Weekly blood pressure task Care Plan Weekly blood pressure task No Radha Gamboa PharmD Weekly blood pressure task Care Plan Weekly blood pressure task No Radha Gamboa PharmD Patient has chronic kidney disease Care Plan Patient has chronic kidney disease No Radha Gamboa PharmD Patient has chronic kidney disease Care Plan Patient has chronic kidney disease No Radha Gamboa PharmD Weekly blood pressure task Care Plan Weekly blood pressure task No Negra Lui [place] Weekly blood pressure task Care Plan Weekly blood pressure task No Negra Lui [place] Patient has chronic kidney disease Care Plan Patient has chronic kidney disease No Negra Lui [place] Patient has chronic kidney disease Care Plan Patient has chronic kidney disease No Negra Lui [place] Weekly blood pressure task Care Plan Weekly blood pressure task No Negra Lui [place] Weekly blood pressure task Care Plan Weekly blood pressure task No Negra Lui [place] Patient has chronic kidney disease Care Plan Patient has chronic kidney disease No Negra Lui [place] Patient has chronic kidney disease Care Plan Patient has chronic kidney disease No Negra Lui [place] documented as of this encounter Procedures Procedure Name Priority Date/Time Associated Diagnosis Comments POCT GLUCOSE Routine 01/22/2025 11:25 AM EST Type 2 diabetes mellitus without complication, without long-term current use of insulin (HCC) POCT GLYCOSYLATED HEMOGLOBIN (HGB A1C) Routine 01/22/2025 11:23 AM EST Type 2 diabetes mellitus without complication, without long-term current use of insulin (HCC) documented in this encounter Results * POCT glucose manually resulted (01/22/2025 11:25 AM EST) Glucose Blood, POC 129 60 - 200 mg/dL QC Media Lot # [id number] Lot# Expiration Date , Blood Capillary blood specimen / Unknown 01/22/2025 11:25 AM EST us Yeni Willoughby MD POINT OF CARE TEST ENTER/EDIT OR DERABLES Final Result * (ABNORMAL) POCT glycosylated hemoglobin (Hgb A1c) (01/22/2025 11:23 AM EST) Hemoglobin A1C 6.0(A) 4.0 - 5.7 % QC Media Lot # [id number] Lot# Expiration Date 318,847 Blood Capillary blood specimen / Unknown 01/22/2025 11:23 AM EST us Yeni Willoughby MD POINT OF CARE TEST ENTER/EDIT OR DERABLES Final Result documented in this encounter Visit Diagnoses Diagnosis Primary hypertension- Primary Unspecified essential hypertension Dyslipidemia Other and unspecified hyperlipidemia Metabolic dysfunction-associated steatotic liver disease (MASLD) Type 2 diabetes mellitus without complication, without long-term current use of insulin (HCC) Postablative hypothyroidism Other postablative hypothyroidism History of Graves' disease Gastroesophageal reflux disease, unspecified whether esophagitis present Hypomagnesemia Disorders of magnesium metabolism Current mild episode of major depressive disorder, unspecified whether recurrent (CMS/HCC) Obstructive sleep apnea syndrome Obstructive sleep apnea (adult) (pediatric) Tobacco use COPD with asthma (CMS/HCC) (HCC) Chronic low back pain without sciatica, unspecified back pain laterality Irritable bowel syndrome, unspecified type Ganglion cyst of dorsum of left wrist documented in this encounter Additional Health Concerns Active Problems Noted Date Diagnosed Date Help patients manage their type 2 diabetes 01/14 Weekly blood pressure task 01/14/2025 Help patients manage their type 2 diabetes 01/14 Patient has chronic kidney disease 01/14/2025 Weekly blood pressure task 01/14/2025 Patient has chronic kidney disease 01/14/2025 Weekly blood pressure task 01/16/2025 Weekly blood pressure task 01/16/2025 Patient has chronic kidney disease 01/16/2025 Patient has chronic kidney disease 01/16/2025 Weekly blood pressure task 01/21/2025 Weekly blood pressure task 01/21/2025 Patient has chronic kidney disease 01/21/2025 Patient has chronic kidney disease 01/21/2025 Weekly blood pressure task 01/21/2025 Weekly blood pressure task 01/21/2025 Patient has chronic kidney disease 01/21/2025 Patient has chronic kidney disease 01/21/2025 Assessment Noted Time PHQ-9 Depression Total Score: 0 07/25/19 10:29 AM EDT documented as of this encounter Care Teams Data Control Assistant Relationship Specialty Start Date End Date Yeni Willoughby MD [address] [place] [address] PCP - General Family Medicine 02/27/18 Quoc Bermudez, RazD [address] [place] [address] Pharmacist Internal Medicine 02/14/22 [facility] 11/02/23 documented as of this encounter
[2025-01-27 10:47] LABS: Hematocrit 37.9 % (37.0-47.0); Hemoglobin 12.0 g/dl (12.0-16.0); Mean Corpuscular HGB Conc 31.7 g/dl (31.0-35.0); Mean Corpuscular Hemoglobin 29.2 pg (27.0-33.0); Mean Corpuscular Volume 92.2 fL (80.0-98.0); NRBC Abs Auto 0.000 X10*3/uL (0.0-0.012); NRBC Pct Auto 0.0 /100WBC (0.0-0.2); Platelet Count 266 X10*3/uL (160-400); Red Blood Count 4.11 X10*6/uL (4.20-5.50); White Blood Count 9.5 X10*3/uL (4.8-10.8)
[2025-01-27 11:26] LABS: Free T4 (Free Thyroxine) 1.13 ng/dL (0.71-1.85)
[2025-01-27 11:38] LABS: Folate 11.3 ng/mL (> or = 4.0); Vitamin B12 287 pg/mL (200-900)
[2025-01-27 11:51] LABS: Alanine Aminotransferase 12 U/L (0-31); Albumin Level 4.8 g/dL (3.5-5.0); Alkaline Phosphatase 68 U/L (39-117); Anion Gap 14 (12-20); Aspartate Amino Transferase 20 U/L (5-31); Blood Urea Nitrogen 37 mg/dL (9-16); Calcium 10.1 mg/dL (8.4-10.2); Carbon Dioxide 26 mmol/L (22-29); Chloride 107 mmol/L (96-108); Estimated Glomerular Filt Rate 40; Ferritin 48 ng/mL (10-250); Potassium 5.9 mmol/L (3.3-5.1); Sodium 141 mmol/L (135-145); Thyroid Stimulating Hormone 4.57 uIU/mL (0.32-4.0); Total Protein 8.7 g/dL (6.5-8.0)
--- OUTSIDE RECORDS SUMMARY | 2025-01-27 12:35 | XMS_ITS | Encounter Summary ---
Author Organization [email or web address] [facility] Address [address] [place] [address] 7 [place] [address] Care Team Providers Care Oil Field Caser Name Role Phone Yeni Willoughby MD Primary Care Provider [phone] Quoc Bermudez PharmD Unavailable [phone] Encounter Details Date Type Department Care Team (Latest Contact Info) Description 06/26/2018 Abstract [facility] CONVERSIONS Dental, Provider, DDS Social [...] Description 03/07/2025 12:45 PM EST Office Visit [facility] ADULT DENTAL [address] [place] [address] Parvin, Crystal [address] [place] [address] documented as of this encounter Visit Diagnoses Not on filedocumented in this encounter Care Teams Oil Field Caser Relationship Specialty Start Date End Date Yeni Willoughby MD [address] [place] [address] PCP - General Family Medicine 02/27/18 Quoc Bermudez, PharmD [address] [place] [address] Pharmacist Internal Medicine 02/14/22 [facility] 11/02/23 documented as of this encounter
--- OUTSIDE RECORDS SUMMARY | 2025-01-27 12:35 | XMS_ITS | Encounter Summary ---
Author Organization [employer] Address [address] [place] [address] 7 [place] [address] Care Team Providers Care Woodworking Bench Carpenter Name Role Phone Yeni Willoughby MD Primary Care Provider [phone] Quoc Bermudez PharmD Unavailable [phone] Reason for Referral * Consultation (Routine) - Closed Specialty Diagnoses / Procedures Referred By Contac t Referred To Contact Pharmacy Diagnoses Primary hypertension Type 2 diabetes mellitus without complication, without long-term current use of insulin (HCC) Asthma-COPD overlap syndrome (CMS/HCC) (HCC) Tobacco use Yeni Willoughby MD [address] [place] [address] Phone: tel: fax: Referral ID Status Reason Start Date Expiration Date V isits Requested Visits Authorized [id number] Closed Consult and Treat 03/01/2024 03/01/2025 6 6 Encounter Details Date Type Department Care Team (Late st Contact Info) Description 03/01/2024 Orders Only [facility] MEDICINE [address] [place] [address] Yeni Willoughby MD [address] [place], [place] [phone] Primary hypertension (Primary Dx); Type 2 diabetes [...] Description 03/07/2025 12:45 PM EST Office Visit [facility] ADULT DENTAL [address] [place] [address] Crystal Melendrez [address] [place] [address] Scheduled Referrals Name Type Priority Associated Diagnoses [...] 140/90 Blood Pressure 120/80(2024 11:30 AM EST) No Quoc Bermudez PharmD Hemoglobin A1c < 7 Result Component 5.8( 10:43 AM EST) No Quoc Bermudez PharmD documented [...] documented as of this encounter Care Teams Woodworking Bench Carpenter Relationship Specialty Start Date End Date Yeni Willoughby MD [address] [place] [address] PCP - General Family Medicine 02/27/18 Quoc Bermudez, Shannen [address] [place] [address] Pharmacist Internal Medicine 02/14/22 [facility] 11/02/23 documented as of this encounter
--- OUTSIDE RECORDS SUMMARY | 2025-01-27 12:35 | XMS_ITS | Encounter Summary ---
Author Organization [employer] Address [address] [facility] 7t [place] [address] Care Team Providers Care Process Stripper Name Role Phone Yeni Willoughby MD Primary Care Provider [phone] Quoc Bermudez PharmD Unavailable [phone] Reason for Visit * Reason Onset Date Comments Nurse Triage 12/08/2023 Encounter Details Date Type Department Care Team ([facility] st Contact Info) Description 12/08/2023 Telephone [facility] MED[facility]INE [address] [place], [place] [phone] Yeni Willoughby MD [address] [place], [place] [phone] Nurse Triage Social History Tobacco Use Types [...] 12/08/2023 10:56 AM EDT Called pt. Via [employer] [id number] Jay. Pt. States that she has been itchy all over herbody x 1 week. Itchiness is worse on neck, arms and on her panty line. Pt. Unsure if it is the medications that she got sent home from [facility] with on 10/26/23 Gabapentin 100mg Three x a day and also Meclizine 25mg 1 tablet 3 times a day as needed. Pt does have rash on neck and hands. Pt denies any itchiness in throat or swelling in throat. Pt denies itchiness on head. I advised that pt. Needs to be seen today or tomorrow in [facility] walk in. Hours provided and [...] Description 03/07/2025 12:45 PM EST Office Visit [facility] ADULT DENTAL [address] [place] [address] Crystal Melendrez [address] [place] [address] documented as of this encounter Goals Goal [...] documented as of this encounter Care Teams Process Stripper Relationship Specialty Start Date End Date Yeni Willoughby MD [address] [place] [address] PCP - General Family Medicine 02/27/18 Quoc Bermudez PharmD [address] [place] [address] Pharmacist Internal Medicine 02/14/22 [facility] 11/02/23 documented as of this encounter
--- OUTSIDE RECORDS SUMMARY | 2025-01-27 12:35 | XMS_ITS | Encounter Summary ---
Author Organization [employer] Address [address] [place] [address] 7 [place] [address] Care Team Providers Care Tmh Teacher Name Role Phone Yeni Willoughby MD Primary Care Provider [phone] Quoc Bermudez PharmD Unavailable [phone] Reason for Referral * Consultation (Routine) - Closed Specialty Diagnoses / Procedures Referred By Contjuan diego t Referred To Contact Allergy Diagnoses Pruritic rash Yeni Willoughby MD [address] [place] [address] Phone: tel: fax: Saúl Suarez MD [address] [place] [address] Drive [address] [place] [address] Phone: tel: fax: Referral ID Status Reason Start Date Expiration Date V isits Requested Visits Authorized [id number] Closed Specialty Services Required 01/09/2024 01/08/2025 1 1 Encounter Details Date Type Department Care Team (Late st Contact Info) Description 01/09/2024 Orders Only [facility] MEDICINE [address] [place], [place] [phone] Yeni Willoughby MD [address] [place], [place] [phone] Pruritic rash (Primary Dx) Social History Tobacco [...] Description 03/07/2025 12:45 PM EST Office Visit [facility] ADULT DENTAL [address] [place] [address] Crystal Melendrez [address] [place] [address] Scheduled Referrals Name Type Priority Associated Diagnoses [...] documented as of this encounter Care Teams Tmh Teacher Relationship Specialty Start Date End Date Yeni Willoughby MD [address] [place] [address] PCP - General Family Medicine 02/27/18 Quoc Bermudez PharmD [address] [place] [address] Pharmacist Internal Medicine 02/14/22 [facility] 11/02/23 documented as of this encounter
--- OUTSIDE RECORDS SUMMARY | 2025-01-27 12:35 | XMS_ITS | Encounter Summary ---
Author Organization [employer] [facility] Address [address] [place] [address] 7 [place] [address] Care Team Providers Care Tip Inserter Name Role Phone Yeni Willoughby MD Primary Care Provider [phone] Quoc Bermudez PharmD Unavailable [phone] Encounter Details Date Type Department Care Team (Latest Contact Info) Description 08/27/2020 Abstract [facility] CONVERSIONS Dental, Provider, DDS Social History [...] Care Team ( st Contact Info) Description 03/07/2025 12:45 PM EST Office Visit [facility] ADULT DENTAL [address] [place] [address] Parvin, Crystal [address] [place] [address] documented as of this encounter Visit Diagnoses Not on filedocumented in this encounter Care Teams Tip Inserter Relationship Specialty Start Date End Date Yeni Willoughby MD [address] [place] [address] PCP - General Family Medicine 02/27/18 Quoc Bermudez, PharmD [address] [place] [phone] Pharmacist Internal Medicine 02/14/22 [facility] 11/02/23 documented as of this encounter
--- OUTSIDE RECORDS SUMMARY | 2025-01-27 12:36 | XMS_ITS | Encounter Summary ---
Author Organization [employer] Address [address] [facility] 7t [place] [address] Care Team Providers Care Director Fraud Name Role Phone Yeni Willoughby MD Primary Care Provider [phone] Quoc Bermudez PharmD Unavailable [phone] Encounter Details Date Type Department Care Team ([facility] Contact Info) Description 06/03/2022 Orders Only [facility] MEDICINE [address] [place], [place] [phone] Yeni Willoughby MD [address] [place] [address] Hypomagnesemia (Primary Dx); Lesion of parotid gland; [...] Description 03/07/2025 12:45 PM EST Office Visit [facility] ADULT DENTAL [address] [place] [address] Crystal Melendrez [address] [place] [address] documented as of this encounter Goals Goal Patient Goal Type Associated Problems Recent Progress Patient-Stated? Author Blood Pressure < 140/90 Blood Pressure 120/80( 025 11:30 AM EST) No Qouc Bermudez, PharmD documented as of this encounter Visit Diagnoses Diagnosis Hypomagnesemia- Primary Disorders of magnesium metabolism Lesion of parotid gland Lymphadenopathy of left cervical region documented in this encounter Additional Health Concerns Assessment Noted Time PHQ-9 Depression Total Score: 3 06/02/19 23 11:01 AM EDT documented as of this encounter Care Teams Director Fraud Relationship Specialty Start Date End Date Yeni Willoughby MD [address] [place] [address] PCP - General Family Medicine 02/27/18 Quoc Bermudez, PharmD [address] [place] [address] Pharmacist Internal Medicine 02/14/22 [facility] 11/02/23 documented as of this encounter
--- OUTSIDE RECORDS SUMMARY | 2025-01-27 12:36 | XMS_ITS | Clinical Summary ---
Author Organization [employer] Address [address] [facility] [address] [place] [address] Care Team Providers Care Physician Assistant Certified Name Role Phone Yeni Washington MD Primary Care Provider [phone] Quoc Bermudez PharmD Unavailable [phone] Allergies Active Allergy Reactions Criticality Noted Date [...] PRESSURE ONCE DAILY Active [facility] TEST BLOOD SUGAR FOUR TIMES DAILY Active fluticasone (Flonase) 50 MCG/ACT nasal spray spray 1 spray by intranasal route every day in each nostril 16 g Active Probiotic Product (Advanced Probiotic-14) capsule Take 1 capsule by mouth every morning Active aspirin (Aspirin Low Dose) 81 MG EC tabletIndication s:At high risk for cardiovascular disease TAKE 1 TABLET BY MOUTH EVERY MORNING 30 tablet 11 024 Active levothyroxine (Synthroid, Levoxyl) 75 MCG tablet Take 75 mcg by mouth in the morning. Active Reguloid 400 MG capsule Active omeprazole (PriLOSEC) [address] Roper ns:Gastroesophag eal reflux disease, unspecified whether esophagitis present TAKE 1 CAPSULE BY MOUTH AT BEDTIME 30 capsule 2 Active cloNIDine (Catapres) 0.2 MG tablet TAKE 1 TABLET BY MOUTH AT BEDTIME 90 tablet 3 Active montelukast (Singulair) 10 MG tablet TAKE 1 TABLET BY MOUTH EVERY EVENING 90 tablet 1 Active metFORMIN XR (Glucophage-XR) 500 MG 24 hr tabletIndication s:Controlled type 2 diabetes mellitus with hyperglycemia, without long-term current use of insulin ([facility]) TAKE 2 TABLETS BY MOUTH TWICE DAILY IN THE MORNING AND EVENING 360 tablet 1 Active Artificial Tears ophthalmic solution 1 drop in both eyes 4 times a day 15 mL 12 Active Umeclidinium [place] (Incruse Ellipta) 62.5 MCG/ACT aerosol powder Inhale 1 Act (62.5 mcg) Once per day. 30 each 01/18/20 9:47 AM EST 025 Active albuterol 108 (90 Base) MCG/ACT inhaler Inhale 2 puffs every 4 hours as needed for difficulty breathing. Maximum 8 puffs per day. 18 g 3 025 Active Oyster Shell Calcium 500 MG tablet TAKE 1 TABLET BY MOUTH EVERY MORNING 90 tablet 3 Active atorvastatin (Lipitor) 20 MG tablet TAKE 1 TABLET BY MOUTH AT BEDTIME 90 tablet 3 Active amLODIPine (Norvasc) 5 MG tablet TAKE 1 TABLET BY MOUTH EVERY MORNING 30 tablet 3 025 Active glucose blood (FREESTYLE LITE) test stripIndications :Type 2 diabetes mellitus without complication, without long-term current use of insulin (HCC) USE DIRECTED TO TEST BLOOD SUGAR THREE TIMES DAILY 100 strip 01/18/20 9:47 AM EST 025 Active olmesartan (BENIcar) 20 MG tablet TAKE 1 TABLET BY MOUTH EVERY MORNING 90 tablet 3 Active D3-1000 25 MCG (1000 UT) capsule TAKE 2 CAPSULES BY MOUTH ONCE DAILY IN THE MORNING 180 capsule 3 Active Trulicity 0.75 MG/0.5ML solution auto-injectorInd ications:Control led type 2 diabetes mellitus without complication, without long-term current use of insulin (HCC) INJECT ONE PEN (=0.75MG) SUBCUTANEOUSLY ONCE A WEEK DIRECTED 2 mL 3 01/18/20 9:47 AM EST 025 Active magnesium oxide (Mag-Ox) 400 MG tablet TAKE 1 TABLET BY MOUTH TWICE DAILY IN THE MORNING AND AT BEDTIME 60 tablet 1 01/18/20 9:47 AM EST 025 Active Simethicone Ultra Strength 180 MG capsule TAKE 1 CAPSULE BY MOUTH FOUR TIMES DAILY AFTER MEALS Active acetaminophen (Tylenol 8 Hour) 650 MG ER tabletIndication s:Chronic low back pain, unspecified back pain laterality, unspecified whether sciatica present TAKE 1 TABLET BY MOUTH EVERY 8 HOURS NEEDED 60 tablet 3 Active calcium 500 MG tablet Take 1 tablet (500 mg) by mouth Once per day. 90 tablet 3 024 2024 Discontinued(M ed list cleanup (will not trigger notification to Pharmacy)) acetaminophen (Tylenol 8 Hour) 650 MG ER tabletIndication s:Chronic low back pain, unspecified back pain laterality, unspecified whether sciatica present TAKE 1 TABLET BY MOUTH EVERY 8 HOURS NEEDED 60 tablet 3 01/18/20 10:37 AM EST 025 2024 Discontinued lidocaine (Lidoderm) 5 % patchIndications :Chronic low back pain without sciatica, unspecified back pain laterality Apply 1 patch topically Once per day. Remove & discard patch within 12 hours or as directed by . 30 patch 025 2024 Discontinued(M ed list cleanup (will not trigger notification to Pharmacy)) famotidine (Pepcid) 20 MG tablet TAKE 1 TABLET BY MOUTH TWICE DAILY IN THE MORNING AND IN THE EVENING 60 tablet 1 025 2024 Discontinued famotidine (Pepcid) 20 MG tablet TAKE 1 TABLET BY MOUTH TWICE DAILY IN THE MORNING AND IN THE EVENING 60 tablet 1 025 2024 Discontinued(M ed list cleanup (will not trigger notification to Pharmacy)) Active Problems Problem Noted Date Diagnosed Date IBS (irritable bowel syndrome) 01/22/2025 Assessment & Plan (01/22/2025 10:22 PM EST): - following with [facility] - prescribed simethicone - called [facility] office today and left a message that patient is waiting for EGD and colonoscopy evaluation Ganglion cyst of dorsum of left wrist 01/22/2025 Assessment & Plan (01/22/2025 10:36 PM EST): - patient was seen by [facility], and was scheduled for excisonal biopsy - patient cancelled because she was afraid of a potential complication - patient is now interested in getting the biopsy done; we called [facility]. Spoke with Annette, who has generously given patient an appointment on March 05, 2025 at 10:45 am. Localized aggressive severe periodontitis 2024 Chronic back pain 08/04/2024 Assessment & Plan (01/22/2025 10:23 PM EST): - judicious use of APAP and NSAID - lidocaine patch was not covered by her insurance - topical diclofenac prn Assessment & Plan (10/26/2024 12:51 AM EDT): - judicious use of APAP and NSAID - Rx lidocaine patch Assessment & Plan (08/04/2024 6:42 AM EDT): - judicious use of APAP and NSAID - Rx lidocaine patch Health care maintenance 08/04/2024 Assessment & Plan (08/04/2024 6:46 AM EDT): Lung - [facility] cancer screening [facility], last CT in Sep 2023 Breast - Mammo 05/24/24 BI-RADS 2 Cervix - Normal in May 2020 Colon - She has GI, but has not received an appointment yet Dental calculus 07/06/2023 Periodontal disease 07/06/2023 Localized gingival recession 07/06/2023 Pancreatic insufficiency 05/26/2023 Assessment & Plan (07/24/2024 9:08 AM EDT): - following with [facility] - provisional Dx US in Mar 2023 showed coarse heterogenous echotexture - prescribed pancreatic enzyme by GI in the past, not taking currently Assessment & Plan (02/14/2024 6:23 AM EST): - following with [facility] - provisional Dx US in Mar 2023 showed coarse heterogenous echotexture - prescribed pancreatic enzyme by GI in the past, not taking currently Assessment & Plan (05/26/2023 12:19 PM EDT): - following with [facility] - provisional Dx US in Mar 2023 showed coarse heterogenous echotexture - trying pancreatic enzyme currently Pulmonary nodules 05/26/2023 Assessment & Plan (07/24/2024 9:10 AM EDT): - followed by [facility] cancer screening progam - CT in [...] AM EDT): - followed by [facility] cancer screening progam - CT in [...] PM EDT): - followed by [facility] lung cancer screening progam - last CT in August 2022, Lung RADS 2, Multiple 1 mm calcified small granulomas in both lungs. 4 mm pulmonary nodules are stable. No new nodules seen. - continue annual CT scan - continue working on smoking cessation Metabolic dysfunction-associ ated steatotic liver disease (MASLD) 08/28/2022 Assessment & Plan (01/22/2025 10:19 PM EST): - following with [facility] - hx reactive Hep C antibody, negative in 2020 and 2021 - most recent US on 05/08/23 mildly increased echogenicity of liver. - fibrosis stage F0 - FIB4 index 0.96 - continue working on lifestyle modifications Assessment & Plan (10/28/2024 6:58 PM EDT): - following with [facility] - hx reactive Hep C antibody, negative in 2020 and 2021 - most recent US on 05/08/23 mildly increased echogenicity of liver. - fibrosis stage F0 - FIB4 index 0.96 - continue working on lifestyle modifications Assessment & Plan (07/24/2024 9:08 AM EDT): - following with [facility] - hx reactive Hep C antibody, negative in 2020 and 2021 - most recent US on 05/08/23 mildly increased echogenicity of liver. - fibrosis stage F0 - FIB4 index 0.96 - continue working on lifestyle modifications Assessment & Plan (04/23/2024 11:18 AM EST): - following with [facility] - hx reactive Hep C antibody, negative in 2020 and 2021 - most recent US on 05/08/23 mildly increased echogenicity of liver. - fibrosis stage F0 - FIB4 index 0.96 - continue working on lifestyle modifications Assessment & Plan (02/13/2024 9:27 AM EST): - following with [facility] - hx reactive Hep C antibody, negative in 2020 and 2021 - most recent US on 05/08/23 mildly increased echogenicity of liver. - fibrosis stage F0 - FIB4 index 0.96 - continue working on lifestyle modifications Assessment & Plan (11/22/2023 9:31 AM EDT): - following with [facility] - hx reactive Hep C antibody, negative in 2020 and 2021 - most recent US on 05/08/23 mildly increased echogenicity of liver. - fibrosis stage F0 - FIB4 index 0.96 - continue working on lifestyle modifications Assessment & Plan (08/16/2023 12:34 PM EDT): - following with [facility] - hx reactive Hep C antibody, negative in 2020 and 2021 - most recent US on 05/08/23 mildly increased echogenicity of liver. - fibrosis stage F0 - FIB4 index 0.96 - continue working on lifestyle modifications Assessment & Plan (05/26/2023 11:47 AM EDT): - following with [facility] - hx reactive Hep C antibody, [...] factor management Overweight 06/13/2022 COPD with asthma ([facility]) 06/01/2022 Assessment & Plan (01/22/2025 10:25 PM EST): - PFT in 2008 showed moderate-severe [...] Test in near future Assessment & Plan (10/28/2024 7:02 PM EDT): [...] (05/25/2023 5:43 AM EDT): - PFT in 2009 showed [...] Test Tobacco use 06/01/2022 Assessment & Plan (01/22/2025 10:27 PM EST): -Smoking Hx > 30 pack years -last lung cancer screening CT Lung RADS 2 on 10/30/24 -Discussed about the importance of smoking cessation today. -previously tried nicotine replacement which was ineffective -tried Chantix -continue assessing her stage of change Assessment & Plan (10/28/2024 6:59 PM EDT): [...] eye protection - check an availability of screen examiner or plastic surgeon who can evaluate and treat Assessment & Plan (08/28/2022 11:06 AM EDT): - due to Grave's disease - continue artificial tears, eye protection - check an availability of screen examiner or plastic surgeon who can evaluate and treat Hypomagnesemia 06/01/2022 Assessment & Plan (01/22/2025 10:22 PM EST): - pt is taking thiazide-diuretic - continue magnesium oxide - encouraged to improve adherence - check lab again Assessment & Plan (07/24/2024 9:08 AM EDT): [...] Gastroesophageal reflux disease 05/06/2014 Assessment & Plan (01/22/2025 10:20 PM EST): - continue omeprazole 20 mg daily Assessment & Plan (07/24/2024 9:07 AM EDT): - restarted omeprazole 20 mg daily Assessment & Plan (02/14/2024 6:23 AM EST): - restarted omeprazole 20 mg daily Prolapse of female pelvic organs 12/13/2013 Hidradenitis suppurativa 12/13/2013 Depression 11/26/2013 Assessment & Plan (01/22/2025 10:23 PM EST): - worsening depression and anxiety due to her unstable living condition and financial hardship - positive SDOH screen - patient declines service today Assessment & Plan (07/24/2024 9:09 AM EDT): [...] screen - 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 - Continue metformin ER 1000 mg BID - Continue dulaglutide 0.75 mg weekly - Last eye exam: Hx Graves ophthalmopathy. PVD. Seen by [facility] on 01/03/24 - Last comprehensive foot exam: 04/23/24; patient is having foot pain; will prescribe diabetic footwears - Last microalbumin test : 05/20/24 UACR 13.4 - Last FLP: 05/28/24 TC 97; TG 243; HDL 35; LDL 14 - Last dental exam: ? Assessment & Plan (10/26/2024 12:51 AM EDT): - A1c 6.0% on 10/24/24, increased from 5.9% on 07/24/24 - Emphasized the importance of SMBG and lifestyle modifications. - Continue metformin ER 1000 mg BID - Continue dulaglutide 0.75 mg weekly - Last eye exam: Hx Graves ophthalmopathy. PVD. Seen by [facility] on 01/03/24 - Last comprehensive [...] exam: Hx Graves ophthalmopathy. PVD. Seen by [facility] on 01/03/24 - Last comprehensive [...] retinopathy. Hx Graves ophthalmopathy. PVD. Seen by [facility] on 01/03/24 - Last comprehensive [...] retinopathy. Hx Graves ophthalmopathy. PVD. Seen by [facility] on 01/03/24 - Last comprehensive foot [...] Completed Postablative hypothyroidism 07/04/2012 Assessment & Plan (01/22/2025 10:19 PM EST): - History of Graves' disease - Radioactive iodine ablation in 2009 - Started seeing a new transit driver, Dr. Mccracken, initial visit on 02/08/24. - [...] appointment with endocrinology office Assessment & Plan (10/28/2024 6:58 PM EDT): - History of Graves' disease - Radioactive iodine ablation in 2009 - Started seeing a new transit driver, Dr. Mccracken, initial visit on 02/08/24. - [...] in 2009 - Started seeing a new transit driver, Dr. Mccracken, initial visit on 02/08/24. - [...] in 2009 - Started seeing a new transit driver, Dr. Mccracken, initial visit on 02/08/24. - [...] in 2009 - Started seeing a new transit driver, Dr. Mccracken, initial visit on 02/08/24. - [...] - Pt was referred to a new transit driver and was seen on 02/21/19. - Because she is euthyroid, she was discharged Assessment & Plan (11/22/2023 9:58 AM EDT): - History of Graves' disease - Radioactive iodine ablation in 2009 - Medications: Levothyroxine 125 mcg daily. - last TSH 0.06 on 09/22/23 - Check lab and adjust medication accordingly - Previously seeing transit driver at [facility], then [facility], and was discharged due to her stability and no concern for thyroid cancer. - Of note, patient is on GLP-1 RA Assessment & Plan (08/16/2023 12:39 PM EDT): - History of Graves' disease - Radioactive iodine ablation in 2009 - Medications: Levothyroxine 125 mcg daily. - last TSH 0.05 on 06/21/23 - Check lab and adjust medication accordingly - Previously seeing transit driver at [facility], then [facility], and was discharged due to [...] - Continue current replacement - Previously seeing transit driver at [facility], then [facility], and was discharged due to her stability and no concern for thyroid cancer. >>ASSESSMENT AND PLAN FOR HYPOTHYROIDISM WRITTEN ON 05/25/2023 5:52 AM BY YENI WASHINGTON MD - History of Graves' disease - Radioactive iodine ablation in 2009 - Medications: Levothyroxine 137 mcg daily. - last TSH 0.43 on 06/01/22 - Continue current replacement - Pt was referred to a new transit driver and was seen on 02/21/19. - Because she is euthyroid, she was discharged Assessment & Plan (08/28/2022 11:01 AM EDT): - Medications: Levothyroxine 137 mcg daily. - last TSH 0.43 on 06/01/22 - Continue current replacement - Pt was referred to a new transit driver and was seen on 02/21/19. - Because she is euthyroid, she was discharged. Assessment & Plan (06/13/2022 12:48 PM EDT): - Medications: Levothyroxine 137 mcg daily. - last TSH 3.11 on 07/16/20 - Continue current replacement - Pt was referred to a new transit driver and was seen on 02/21/19. - Because she is euthyroid, she was discharged. Allergic rhinitis 12/01/2011 Assessment & Plan (07/24/2024 9:06 AM EDT): Continue loratadine and flonase Assessment & Plan (04/30/2024 11:41 AM EST): Continue loratadine and flonase Dyslipidemia 12/01/2011 Assessment & Plan (01/22/2025 10:17 PM EST): Current medication: Atorvastatin 20 mg nightly Previous medication: pravastatin 80 mg qhs Lab: 05/28/24 TC 97; TG 243; HDL 35; LDL 14 Continue working on lifestyle modificaiton Consider higher potency statin due to mild CAD, although her LDL is at goal Assessment & Plan (10/28/2024 6:55 PM EDT): [...] lifestyle modificaiton Hypertension 12/01/2011 Assessment & Plan (01/22/2025 10:17 PM EST): - Goal BP < 130/80 per ACC/AHA. [...] our pharmacist through [facility] Assessment & Plan (10/28/2024 6:53 PM EDT): [...] sleep apnea syndrome 10/05/2011 Assessment & Plan (01/22/2025 10:26 PM EST): - following with sleep medicine clinic at [facility], last seen in Nov 2024 - home sleep study on 12/15/22, auto PAP 5-20 cm H2O was recommended - recent compliance report shows 100% adherence - continue AutoPAP Assessment & Plan (10/28/2024 6:59 PM EDT): - following with sleep medicine clinic at [facility], last seen in May 2023 - home sleep study on 12/15/22, auto PAP 5-20 cm H2O was recommended - recent compliance report shows 100% adherence - continue AutoPAP Assessment & Plan (07/24/2024 9:10 AM EDT): - following with sleep medicine clinic at [facility], last seen in May 2023 - home sleep study on 12/15/22, auto PAP 5-20 cm H2O was recommended - recent compliance report shows 100% adherence - continue AutoPAP Assessment & Plan (04/30/2024 11:46 AM EST): - following with sleep medicine clinic at [facility], last seen in May 2023 - home sleep study on 12/15/22, auto PAP 5-20 cm H2O was recommended - recent compliance report shows 100% adherence - continue AutoPAP Assessment & Plan (11/22/2023 9:31 AM EDT): - following with sleep medicine clinic at [facility], last seen in May 2023 - home sleep study on 12/15/22, auto PAP 5-20 cm H2O was recommended - recent compliance report shows 100% adherence - continue AutoPAP Assessment & Plan (08/16/2023 12:31 PM EDT): - following with sleep medicine clinic at [facility], last seen in May 2023 - home sleep study on 12/15/22, auto PAP 5-20 cm H2O was recommended - recent compliance report shows 100% adherence - continue AutoPAP Assessment & Plan (05/26/2023 11:42 AM EDT): - following with sleep medicine clinic at [facility] - home sleep study on 12/15/22, auto [...] Encounters Date Type Department Care Team Description 01/27/2025 Orders Only GENERIC EXTERNAL DATA DEPARTMENT Provider, Generic External Data 01/23/2025 Refill [facility] [address] [place] [phone] Yeni Washington MD Chronic low back pain, unspecified back pain laterality, unspecified whether sciatica present 01/22/2025 11:00 AM EST Office Visit [facility] [address] [place] [id number] Yeni Washington MD Primary hypertension (Primary Dx); Dyslipidemia; Metabolic dysfunction-associate d steatotic liver disease (MASLD); Type 2 diabetes mellitus without complication, without long-term current use of insulin ([facility]); Postablative hypothyroidism; History of Graves' disease; Gastroesophageal reflux disease, unspecified whether esophagitis present; Hypomagnesemia; Current mild episode of major depressive disorder, unspecified whether recurrent (CMS/HCC); Obstructive sleep apnea syndrome; Tobacco use; COPD with asthma (CMS/HCC) ([facility]); Chronic low back pain without sciatica, unspecified back pain laterality; Irritable bowel syndrome, unspecified type; Ganglion cyst of dorsum of left wrist 01/22/2025 Travel 01/21/[address] [address] Yeni Washington MD chart prep 01/17/2025 Travel 01/14/[address] [address] Yeni Washington MD Prior Authorization (PA: Lidocaine 5% Patch) 01/07/2025 Refill [facility] [address], [place] [phone] Yeni Washington MD 12/08/2024 Refill [facility] [address], [place] [phone] Yuridia Kendall MD 12/06/2024 Refill [facility] [address], [place] [phone] Yeni Washington MD Controlled type 2 diabetes mellitus without complication, without long-term current use of insulin ([facility]) 12/05/2024 9:00 AM EDT Office Visit [facility] [address] [place] [phone] Andrew Servin DDS Localized aggressive severe periodontitis (Primary Dx) 12/03/2024 Refill [facility] [address] [place] [phone] Yeni Washington MD 11/15/2024 Refill [facility] [address] [place] [address] Yeni Washington MD Type 2 diabetes mellitus without complication, without long-term current use of insulin ([facility]) 11/08/2024 Refill [facility] [address] [place] [address] Yeni Washington MD 11/04/2024 Refill [facility] [address] [place] [address] Yeni Washington MD 11/03/2024 Refill [facility] [address] [place] [address] Yeni Washington MD 11/01/2024 Abstract [facility] [address] [place] [phone] Yeni Washington MD 10/31/2024 Results Follow-Up [facility] [address] [place] [address] Lung Screening Low dose 10/31/2024 Telephone [facility] [address] [place] [address] Yeni Washington MD lung screening 10/30/2024 Orders Only [facility] External Provider, [facility] from Last 3 Months Immunizations Immunization Administration Dates Next Due Hep A, Adult 02/13/2024,05/25/2023 Hep B, adult 02/13/2024, 5,08/15/2014,07/08 Influenza injectable quadriv alent IIV4 with preservative 11/20/2017,12/29/2016,11/16/2015,02/11 Influenza injectable quadriv alent preservative free 01/17/2022,12/10/2020,01/30/2020,01/22 Influenza, IIV3, injectable 11/26/2013,1 ,11/23/2009,10/30 Influenza, Injectable, MDCK, preservative free 01/17/2025 Influenza, Split (incl. tracie fied surface antigen) [...] is your housing situation today? I have dannyoj gross 07/24/[address] you [...] Mass Index 26.2 01/22/2025 11:09 AM EST Plan of Treatment Upcoming Encounters Date Type Department Care Team (Late st Contact Info) Description 03/07/2025 12:45 PM EST Office Visit [facility] [address] [place] [address] Parvin, Crystal [address] [place] [address] Health Maintenance Due Date Last Done Comments CT Colonography 1963 Colonoscopy 1963 Colorectal Cancer Screening 1963 FIT DNA/Cologuard 1963 FIT 1963 FOBT 1963 Sigmoidoscopy 1963 Dental Oral Exam 02/20/2025 08/20/2024, , 04/07/2021, Additional history exists Dental Prophylaxis 02/20/2025 08/20/2024, 1 04/21/2023, 07/06/2023, Additional history exists Diabetes: Foot Exam 04/23/2025 04/23/2024, 04/23/2024, 04/23/2024, Additional history exists Diabetes: Hemoglobin A1C 04/27/2025 025, 01/22/2025, 10/24/2024, Additional history exists Diabetes: Urine Protein Screening 05/20/2025 05/20/2024, 02/19/2024, 05/26/2023, Additional history exists Lipid Panel 05/28/2025 05/28/2024, 04/28, 05/25/2023, Additional history exists Cervical Cancer Screening 06/22/2025 HPV/Cotest 06/22/2025 06/22/2020, 12/29/2016 Pap Smear 06/22/2025 06/22/2020 Depression Screening 07/24/2025 07/24/2024, 07/25/19 25 Disability Screening 07/24/2025 07/24/2024 SDOH Screening 07/24/2025 07/24/2024 Dental X-Ray: Bitewings 08/21/2025 08/21/19 25, 06/15/2023, 08/27/2020, Additional history exists Alcohol/Substance Use Screening 01/22/2026 01/22/2025 Tobacco Screening 01/22/2026 01/22/2025 Mammogram 05/24/2026 05/24/2024, 2 07/2022, 11/08/2021, Additional history exists Eye Exam 10/02/2026 10/02/2024, 08/0 07/2024, 10/02/2024, Additional history exists Dental X-Ray: Full Mouth 08/22/2027 08/20/2024, 07/0 02/2020 DTaP/Tdap/Td Vaccines (3 - Td or Tdap) 01/18/2032 01/17/2022, 04/25/2011, 01/07/2004 Pneumococcal Vaccine: 50+ Years Completed 02/14/2022, 01/01/2009, 01/01/2009 Zoster Vaccines Completed 12/30/2022, 02/14/2022 HIV Screening Completed 04/12/2023, 06/28, 12/11/2020, Additional history exists Hepatitis A Vaccines Completed 02/13/2024, 05/25/19 24 Hepatitis B Vaccines Completed 02/13/2024, 02/11/2015, 08/15/2014, Additional history exists Hepatitis C Screening Completed 02/13/2024 , 04/12/2023, 07/16/2021, Additional history exists RSV Patients and Patients Aged 60 years or older Completed 03/05/2024 COVID-19 Vaccine Completed 01/17/2025, , 05/25/2023, Additional history exists Influenza Vaccine Completed 01/17/2025, , 01/17/2022, Additional history exists HIB Vaccines Aged Out No longer eligi [...] Patient has chronic kidney disease No Negra Liu MA Weekly blood pressure task Care Plan Weekly blood pressure task No Negra Lui MA Weekly blood pressure task Care Plan Weekly blood pressure task No Negra Lui MA Patient has chronic kidney disease Care Plan Patient has chronic kidney disease No Negra Lui MA Patient has chronic kidney disease Care Plan Patient has chronic kidney disease No Negra Lui MA Procedures Procedure Name Priority Date/Time Associated Diagnosis Comments VITAMIN B12/FOLATE, SERUM PANEL Routine 01/27/2025 10:43 AM EST T4, FREE Routine 01/27/2025 10:43 AM EST HEMOGLOBIN A1C Routine 01/27/2025 10:43 AM EST CBC Routine 01/27/2025 10:43 AM EST POCT GLUCOSE Routine 01/22/2025 11:25 AM EST Type 2 diabetes mellitus without complication, without long-term current use of insulin (HCC) POCT GLYCOSYLATED HEMOGLOBIN (HGB A1C) Routine 01/22/2025 11:23 AM EST Type 2 diabetes mellitus without complication, without long-term current use of insulin (HCC) CASE PRESENTATION, DETAILED AND EXTENSIVE TREATMENT PLANNING Routine 12/05/2024 9:00 AM EDT 31 EXTRACTION, ERUPTED TOOTH OR EXPOSED ROOT (ELEVATION/FORCEPS REMOVAL) Routine 12/05/2024 9:00 AM EDT Localized aggressive severe periodontitis HM LUNG CANCER SCREENING Routine 11/01/2024 LDCT LUNG SCREENING Routine 10/31/2024 9 :54 AM EDT XR LUMBAR SPINE 2-3 VIEWS Routine 10/30/2024 12:35 PM EDT Chronic low back pain without sciatica, unspecified back pain laterality PROPHYLAXIS - ADULT Routine 08/20/2024 1 :00 [...] Recently Relevant to Health Maintenance Results * Vitamin B12 (Cobalamin) and Folate Panel, Serum (01/27/2025 10:43 AM EST) Vitamin B12 287 200 - 900 pg/mL [facility] Comment:NORMAL 200-900 PG/M L INDETERMINATE 160-199 PG/ML DEFICIENT < 160 PG/ML Folate 11.3 > or = 4.0 ng/mL [facility] Comment:Reference Values:> o r = 4.0 ng/mL< 4.0 ng/mL suggests folate deficiency Methotrexate, aminopterin and folinic acid(leucovorin) are chemotherapeutic agents whose molecularstructures are similar to folate; therefore, the Architectfolate assay cannot be used for patients using these drugs. 01/27/2025 10:4 3 AM EST 01/27/2025 10:43 AM EST us Generic External Data Provider LAB BLOOD ORDERAB LES Final Result [facility] [address] [place] [phone] * (ABNORMAL) CBC (01/27/2025 10:43 AM EST) White Blood Count 9.5 4.8 - 10.8 X10*3/uL [facility] Red Blood Count 4.11(L) 4.20 - 5.50 X10*6/uL [facility] Hemoglobin 12.0 12.0 - 16.0 g/dl [facility] Hematocrit 37.9 37.0 - 47.0 % [facility] Mean Corpuscular Volume 92.2 80.0 - 98.0 fL [facility] Mean Corpuscular Hemoglobin 29.2 27.0 - 33.0 pg [facility] Mean Corpuscular HGB Conc 31.7 31.0 - 35.0 g/dl [facility] Red Cell Distribution Width 13.9 11.0 - 16.0 % [facility] Platelet Count 266 160 - 400 X10*3/uL [facility] Mean Platelet Volume 11.0 9.4 - 12.3 fL [facility] NRBC Pct Auto 0.0 0.0 - 0.2 /100WBC [facility] NRBC Abs Auto 0.000 0.0 - 0.012 X10*3/uL [facility] 01/27/2025 10:4 3 AM EST 01/27/2025 10:43 AM EST us Generic External Data Provider LAB BLOOD ORDERAB LES Final Result Performing Organization Address [facility] Co de Phone Number [facility] [address] [place] [phone] * T4, Free (01/27/2025 10:43 AM EST) Free T4 (Free Thyroxine) 1.13 0.71 - 1.85 ng/dL [facility] 01/27/2025 10:4 3 AM EST 01/27/2025 10:43 AM EST us Generic External Data Provider LAB BLOOD ORDERAB LES Final Result Performing Organization Address [facility] Phone Number [facility] [address] [place] [phone] * Hemoglobin A1c (01/27/2025 10:43 AM EST) Hemoglobin A1c 5.8 <6.0 % [facility] Comment:Hemoglobin A1C Refer ence Range Adults: 4.8 - 6.0 % Non diabetic: < 6.0 % Goal: < 7.0 %Additional Action Suggested: > 8.0 %Note: Hemoglobin A1c results are invalid for patients with abnormal amounts of HbF. Blood transfusions may impact the HbA1c concentration in the patient sample. Estimated Average Glucose 120 mg/dL [facility] Comment:eAG = Estimated ave rage glucose which is %A1C expressed asaverage glucose, using the formula of the Y6Q-JjlnoglTivuwuc Glucose study (ADAG), Diabetes Care, Vol.31,#8,2007 01/27/2025 10:4 3 AM EST 01/27/2025 10:43 AM EST Generic External Data Provider LAB BLOOD ORDERAB LES Final Result Performing Organization Address [facility] Co de Phone Number [facility] [address] [place] [phone] * POCT glucose manually resulted (01/22/2025 11:25 AM EST) Pathologist [facility] [place] Glucose Blood, POC 129 60 - 200 mg/dL QC Media Lot # [id number] Lot# Expiration Date Blood Capillary blood specimen / Unknown 01/22/2025 11:25 AM EST Yeni Washington MD POINT OF CARE TEST ENTER/EDIT OR DERABLES Final Result * (ABNORMAL) POCT glycosylated hemoglobin (Hgb A1c) (01/22/2025 11:23 AM EST) Pathologist [facility] Hemoglobin A1C 6.0(A) 4.0 - 5.7 % QC Media Lot # [id number] Lot# Expiration Date Blood Capillary blood specimen / Unknown 01/22/2025 11:23 AM EST Yeni Washington MD POINT OF CARE TEST ENTER/EDIT OR DERABLES Final Result * Hm Lung Cancer Screning (11/01/2024) Pathologist [facility] Lung CT LUNGRADS 2 LUNGRADS 1, LUNGRADS 2 Comment:1 year Anatomical Region Laterality Modality Other Historical Provider HEALTH MAINTENANCE Edited Result - Final * CT Lung Screening Low dose (10/31/2024 9:54 AM EDT) Anatomical Region Laterality Modality Lung Computed Tomogra phy 10/31/2024 9:54 AM EDT Narrative 10/31/2024 9:55 AM EDT [address] [address] [address] Scan Report Signed Patient: Jennifer Batrh I MR#: [id number] : 1965 Acct:[id number] Age/Sex: 59 / F ADM Date: 10/30/24 Loc: HO.CT Attending Dr: Jami Blunt PA-C Ordering Physician: Jami Blunt PA-C Date of Service: 10/30/24 Procedure(s): CT lung screening Accession Number(s): [id number] cc: Jami Blunt PA-C; Yeni Washington MD Report Number: [id number]: Total DLP = 1240.00 mGy-cm Reason for Exam: F17.210 - Nicotine dependence, cigarettes, uncomplicated CLINICAL HISTORY: F17.210 - Nicotine dependence, cigarettes, uncomplicated CT lung cancer screening (LDCT) Comparison: CT/NM/SR - CT LUNG SCREENING - 10/17/23 15:[address]/REG/NM/SR - CT LUNG SCREENING - 09/21/22 09:22 [...] on image 73. Coronary artery calcifications: Stable [id number] Limited upper abdomen: Unremarkable Other: None IMPRESSION: LungRADS 2 - Benign Appearance: Continue annual screening with low dose Chest CT in 12 months. ##L2## This document has been electronically signed by: Sade Andre MD on 10/31/2024 09:54:56 Dictated By: Sade Andre MD Signed By: <Electronically signed by Sade Andre MD in OV> 10/31/24954 DD/ 3 TD/TT: 10/31/24953 Mechanic Assistant: Procedure Note Donotuseinterpreter, Image - 10/31/[address] [place] [address] [address] Scan Report Signed Patient: Jennifer Barth [facility]#: [id number] : 1965Acct:[id number] Age/Sex: 59 / FADM Date: 10/30/24 Loc: HO.CT Attending Dr: Jami Blunt PA-C Ordering Physician: Jami Blunt PA-C Date of Service: 10/30/24 Procedure(s): CT lung screening Accession Number(s): [id number] cc: Jami Blunt PA-C; Yeni Washington MD Report Number: [id number]: Total DLP = 1240.00 mGy-cm Reason for Exam: F17.210 - Nicotine dependence, cigarettes, uncomplicated CLINICAL HISTORY: F17.210 - Nicotine dependence, cigarettes, uncomplicated CT lung cancer screening (LDCT) Comparison: CT/NM/SR - CT LUNG SCREENING - 10/17/23 15:[address]/REG/NM/SR - CT LUNG SCREENING - 09/21/22 09:22 [...] on image 73. Coronary artery calcifications: Stable [id number]-nc-xcyrtler Limited upper abdomen: Unremarkable Other: None IMPRESSION: LungRADS 2 - Benign Appearance: Continue annual screening with low dose Chest CT in 12 months. ##L2## This document has been electronically signed by: Sade Andre MD on 10/31/2024 09:54:56 Dictated By: Sade Andre MD Signed By: <Electronically signed by Sade Andre MD in OV> 10/31/2455 DD/ 3 TD/TT: 10/31/24953 Mechanic Assistant: [facility] External Provider IMG CT PROCEDURES Final Result * XR Lumbar Spine 2-3 Views (10/30/2024 12:35 PM EDT) Anatomical Region Laterality Modality Spine, L-spine Radiographic Charlene ging 10/30/2024 12:3 5 PM EDT Narrative 10/30/2024 1:09 PM EDT [address] [address] XRay Report Signed Patient: Jennifer Barth I MR#: [id number] : 1965 Acct:[id number] Age/Sex: 59 / F ADM Date: 10/30/24 Loc: HO.CT Attending Dr: Jami Blunt PA-C Ordering Physician: Yeni Washington MD Date of Service: 10/30/24 Procedure(s): XR lumbar spine 2-3V Accession Number(s): [id number] cc: Yeni Washington MD Reason for Exam: [...] 10/30/24 1306 DD/ 1235 TD/TT: 10/30/24 1255 Mechanic Assistant: Procedure Note Donotuseinterpreter, Image - 10/30/[address] [address] XRay Report Signed Patient: Jennifer Barth [facility]#: [id number] : 1965Acct:[id number] Age/Sex: 59 / FADM Date: 10/30/24 Loc: HO.CT Attending Dr: Jami Blunt PA-C Ordering Physician: Yeni Washington MD Date of Service: 10/30/24 Procedure(s): XR lumbar spine 2-3V Accession Number(s): [id number] cc: Yeni Washington MD Reason for Exam: [...] 10/30/24 1306 DD/ 1235 TD/TT: 10/30/24 1255 Mechanic Assistant: us Yeni Washington MD IMG XR PROCEDURES Final Result * (ABNORMAL) Lipid Panel with Reflex to Direct LDL (05/28/2024 12:13 PM EDT) Triglycerides 243(H) <150 mg/dL [facility] Comment:Desirable Triglyceri de: less than 150 mg/dLBorderline High Triglyceride 150-199 mg/dLHigh Triglyceride: 200-499 mg/dLVery High Triglyceride: greater than or equal to 5OO mg/dL Cholesterol 97 <200 mg/dL [facility] Comment:Desirable Cholestero l: less than 200 mg/dLBorderline High Cholesterol: 200-239 mg/dLHigh Cholesterol: greater than 239 mg/dL LDL Cholesterol Calculated 14 <100 mg/dL [facility] Comment:Desirable LDL: less than 100 mg/dLNear Optimal/Above Optimal LDL: 110- 129 mg/dLBorderline High LDL: 130-159 mg/dLHigh LDL: 160-189 mg/dLVery High LDL: greater than or equal to 190 mg/dL HDL Cholesterol 35(L) >40 mg/dL [facility] Comment:Desirable HDL: great er than 40 mg/dL Note: This HDL assay may give artificially low results in patients with liver disease. Blood 05/28/2024 12:1 3 PM EDT 05/28/2024 1:15 PM EDT us Yeni Washington MD LAB BLOOD ORDERABLES Final Resul t [facility] [address] [place], [place] [phone] * BI Mammogram Screening Tomosynthesis Bilateral (05/24/2024 3:00 PM EDT) Anatomical Region Laterality Modality Breast Bilateral Mammography 05/24/2024 3:00 PM EDT Narrative 06/01/2024 3:10 PM EDT [facility] [address] [place] [address] Mammography Report Signed Patient: Jennifer Barth I MR#: [id number] : 1965 Acct:[id number] Age/Sex: 59 / F ADM Date: 05/24/24 Loc: CARMELO Attending Dr: Yeni Washington MD Ordering Physician: Yeni Washington MD Results: 2Benign F indings Date of Service: 05/24/24 Follow Up: 1 Year From Orig inal Mammogram Procedure(s): MM tomosynthesis screening BI Accession Number(s): [id number] cc: Yeni Washington MD EXAMINATION: MM SCREENING [...] 06/01/24 1507 DD/ 1500 TD/TT: 05/24/24 1515 Mechanic Assistant: Procedure Note Donotuseinterpreter, Image - 06/01/2024 [facility] [address] [place] [address] Mammography Report Signed Patient: Jennifer Barth IMR#: [id number] : 1965Acct:[id number] Age/Sex: 59 / FADM Date: 05/24/24 Loc: CARMELO Attending Dr: Yeni Washington MD Ordering Physician: Yeni Washington MDResults: 2Benign F indings Date of Service: 05/24/24Follow Up: 1 Year From Orig inal Mammogram Procedure(s): MM tomosynthesis screening BI Accession Number(s): [id number] cc: Yeni Washington MD EXAMINATION: MM SCREENING [...] 06/01/24 1507 DD/ 1500 TD/TT: 05/24/24 1515 Mechanic Assistant: Yeni Washington MD IM BI PROCEDURES Edited Result - Final * Albumin, Random Urine W/Creatinine (05/20/2024 9:56 AM EDT) Creatinine, Urine 141.41 mg/dL [facility] Microalbumin Urine 19.0 mg/L [facility] Microalbum Creatinine Ratio Ur 13.4 <30 ug/mg cr [facility] Comment:Albumin/Creatinine R atio Reference Ranges: Normal: < 30 ug/mg creatinine Microalbuminuria: 30 - 300 ug/mg creatinineClinical Albuminuria: > 300 ug/mg creatinine Urine 05/20/2024 9:56 AM EDT 05/20/2024 10:56 AM EDT Yeni Washington MD LAB URINE ORDERABLES Final Resul t Performing Organization Address [facility] de Phone Number [facility] [address] [place] [phone] * Hepatitis C Antibody with Reflex to HCV, RNA, Quantitative, Real-Time PCR (02/13/2024 10:03 AM EST) Hepatitis C Antibody Nonreactive Nonreactive [facility] Comment:Antibodies to HCV no t detected; does not exclude early acuteHCV infection. Blood Venous blood specimen / Unknown 02/13/2024 10:03 AM EST 02/13/2024 11:03 AM EST us Yeni Washington MD LAB BLOOD ORDERABLES Final Resul t Performing Organization Address [facility] de Phone Number [facility] [address] [place] [phone] * HIV-1/2 Antigen and Antibodies, Fourth Generation, with Reflexes (04/12/2023 4:03 PM EST) HIV AB/AG Nonreactive Nonreactive [facility] Comment:HIV-1 p24 Ag and/or HIV-1/HIV-2 Ab not detected.A test result that is nonreactive does not exclude thepossibility of exposure to or infection with HIV-1 and/orHIV-2. Nonreactive results in this assay for individualswith prior exposure to HIV-1 and/or HIV-2 may be due toantigen and antibody levels that are below the limit ofdetection of this assay.The [employer] HIV Ag/Ab Combo assay result andsupplemental assay results should be interpreted inconjunction with the patient's clinical presentation,history and other laboratory results. If the results areinconsistent with clinical evidence, additional testing issuggested to confirm the result. 04/12/2023 4:03 PM EST 04/12/2023 4:03 PM EST us Generic External Data Provider LAB BLOOD ORDERAB LES Final Result [facility] [address] [place] [phone] * THINPREP PAP (06/22/2020 6:38 AM [...] along with historic and current clinical information. Returned Goods Sorter : SEE COMMENT [facility] Comment: DMM, CT(ASCP) CT screening location: [place] [address] Interpretation/R esult: Negative for intraepithelial lesion or malignancy. [facility] LMP: NONE GIVEN [facility] Prev. BX: NONE GIVEN [facility] Prev. PAP: NONE GIVEN [facility] SOURCE: None given [facility] Statement Of Adequacy: SEE COMMENT [facility] Comment: Satisfactory for evaluation. Endocervical/transformation zone component present. Age and/or menstrual status not provided 06/22/2020 6:38 AM EDT Yeni Washington MD LAB PATHOLOGY ORDERABLES Final R esult [facility] [address] * HPV mRNA E6/E7 (06/22/2020 6:38 AM EDT) HPV nRNA E6/E7 Not Detected Not Detected [facility] Comment: Methodology: Regional Economic Liaison-Mediated Amplification This assay detects E6/E7 viral messenger RNA (mRNA) from 14 high-risk HPV types (16,18,31,33,35,39,45,51,52,56,58,59,66,68). The analytical performance characteristics of this assay have been determined by [employer]. The modifications have not been cleared or approved by the FDA. This assay has been validated pursuant to the CLIA regulations and is used for clinical purposes. For additional information, please refer to http://education.[employer]/faq/MXQ221w6 (This link if provided for information/ educational purposes only.) 06/22/2020 6:38 AM EDT us Yeni Washington MD LAB BLOOD ORDERABLES Final Resul t [facility] [address] from Last 3 Months or Most Recently Relevant to Health Maintenance Additional Health Concerns Active Problems Noted Date [...] 01/21/2025 Patient has chronic kidney disease 01/21/2025 Insurance [facility] < 65 [place] [id number] D[facility]AL - [facility] Care Teams Physician Assistant Certified Relationship Specialty Start Date End Date Yeni Washington MD [address] [place] [phone] PCP - General Family Medicine 02/27/18 Quoc Bermudez, PharmD [address] [place] [address] Pharmacist Internal Medicine 02/14/22 [facility] 11/02/23
--- OUTSIDE RECORDS SUMMARY | 2025-01-27 12:36 | XMS_ITS | Encounter Summary ---
Author Organization [employer] Address [address] [facility] 7t [place] [address] Care Team Providers Care Woods Overseer Name Role Phone Yeni Willoughby MD Primary Care Provider [phone] Quoc Bermudez PharmD Unavailable [phone] Reason for Visit * Reason Comments Med Refill Encounter Details Date Type Department Care Team ([facility] st Contact Info) Description 01/23/2025 Refill [facility] [address] [place] [address] Yeni Willoughby MD [address] [place] [address] Chronic low back pain, unspecified back pain [...] Description 03/07/2025 12:45 PM EST Office Visit [facility] [address] [place] [address] Parvin, Crystal [address] [place] [address] documented as of this encounter Goals Goal Patient Goal Type Associated Problems Recent Progress Patient-Stated? Author Blood Pressure < 140/90 Blood Pressure 120/80(2024 11:30 AM EST) No Quoc Bermudez, PharmErin Hemoglobin A1c < 7 Result Component 5.8( 10:43 AM EST) No Quoc Bermudez, Shannen Help patients manage their type 2 diabetes [...] Lui [place] documented as of this encounter Visit Diagnoses [...] documented as of this encounter Care Teams Woods Overseer Relationship Specialty Start Date End Date Yeni Willoughby MD [address] [place] [address] PCP - General Family Medicine 02/27/18 Quoc Bermudez, Shannen [address] [place] [address] Pharmacist Internal Medicine 02/14/22 [facility] 11/02/23 documented as of this encounter
--- OUTSIDE RECORDS SUMMARY | 2025-01-27 12:36 | XMS_ITS | Encounter Summary ---
Author Organization [employer] Address [address] [facility] [address] [place] [address] Care Team Providers Care Folder Tier Name Role Phone Yeni Willoughby MD Primary Care Provider [phone] Quoc Bermudez PharmD Unavailable [phone] Encounter Details Date Type Department Care Team ([facility] Contact Info) Description 11/22/2023 Orders Only [facility] [address] [place], [place] [phone] Yeni Willoughby MD [address] [place], [place] [phone] Hypomagnesemia (Primary Dx); Hypocalcemia Social History Tobacco [...] Description 03/07/2025 12:45 PM EST Office Visit [facility] [address] [place] [address] Parvin, Crystal [address] [place] [address] Scheduled Orders Name Type Priority Associated Diagnoses [...] EST) Magnesium 2.2 1.6 - 2.6 mg/dL [facility] Blood Venous blood specimen / Unknown 02/06/2024 12:07 PM EST 02/06/2024 1:03 PM EST us Yeni Willoughby MD LAB BLOOD ORDERABLES Final Resul t Performing Organization Address City/[facility]/ZIP Co de Phone Number [facility] [address] [place] [phone] * (ABNORMAL) TSH (01/12/2024 11:55 AM EST) Thyroid Stimulating Hormone 0.05(L) 0.32 - 4.0 uIU/mL [facility] Comment:TSH 3rd Generation ( [facility]) Blood Venous blood specimen / Unknown 01/12/2024 11:55 AM EST 01/12/2024 12:57 PM EST us Yeni Willoughby MD LAB BLOOD ORDERABLES Final Resul t [facility] [address] [place] [phone] * T4, Free (01/12/2024 11:55 AM EST) Free T4 (Free Thyroxine) 1.32 0.71 - 1.85 ng/dL [facility] Blood Venous blood specimen / Unknown 01/12/2024 11:55 AM EST 01/12/2024 12:57 PM EST us Yeni Willoughby MD LAB BLOOD ORDERABLES Final Resul t Performing Organization Address [facility] Co de Phone Number [facility] [address] [place] [phone] * (ABNORMAL) Magnesium (01/12/2024 11:55 AM EST) Pathologist [facility] Magnesium 1.3(LL) 1.6 - 2.6 mg/dL [facility] Comment:Critical value for M AG: Results called to and read back by:Naty Rodriguez Person calling: [email or web address] Date: 01/12/24 Time: 1414 Blood Venous blood specimen / Unknown 01/12/2024 11:55 AM EST 01/12/2024 12:57 PM EST us Yeni Willoughby MD LAB BLOOD ORDERABLES Final Resul t Performing Organization Address [facility] Co de Phone Number [facility] [address] [place] [phone] * (ABNORMAL) Basic Metabolic Panel (01/12/2024 11:55 AM EST) Pathologist [facility] Sodium 141 135 - 145 mmol/L [facility] Potassium 4.1 3.3 - 5.1 mmol/L [facility] Chloride 106 96 - 108 mmol/L [facility] Carbon Dioxide 29 22 - 29 mmol/L [facility] Anion Gap 10(L) 12 - 20 [facility] Urea Nitrogen (BUN) 20(H) 9 - 16 mg/dL [facility] Creatinine, Serum 0.99 0.5 - 1.4 mg/dL [facility] Estimated Glomerular Filt Rate 57 [facility] Comment:Chronic Kidney Disea se: Estimated GFR < 60 mL/min/1.22u0Gdsbdi Kidney Disease: Estimated GFR < 15 mL/min/1.73m2 Glucose 97 60 - 115 mg/dL [facility] Calcium 9.3 8.4 - 10.2 mg/dL [facility] Blood Venous blood specimen / Unknown 01/12/2024 11:55 AM EST 01/12/2024 12:57 PM EST Yeni Willoughby MD LAB BLOOD ORDERABLES Final Resul t [facility] [address] [place] [phone] documented in this encounter Visit Diagnoses Diagnosis Hypomagnesemia- Primary Disorders of magnesium metabolism Hypocalcemia documented in this encounter Additional Health Concerns Assessment Noted Time PHQ-9 Depression Total Score: 0 05/25/19 9:46 AM EDT documented as of this encounter Care Teams Folder Tier Relationship Specialty Start Date End Date Yeni Willoughby MD [address] [place] [address] PCP - General Family Medicine 02/27/18 Quoc Bermudez, PharmD [address] [place] [address] Pharmacist Internal Medicine 02/14/22 [facility] 11/02/23 documented as of this encounter
--- OUTSIDE RECORDS SUMMARY | 2025-01-27 12:36 | XMS_ITS | Encounter Summary ---
Author Organization [employer] Address [address] [facility] 7t [place] [address] Care Team Providers Care Licensed Optician Name Role Phone Yeni Willoughby MD Primary Care Provider [phone] Quoc Bermudez PharmD Unavailable [phone] Encounter Details Date Type Department Care Team ([facility] Contact Info) Description 01/27/2025 Orders Only GENERIC EXTERNAL DATA DEPARTMENT Provider, Generic External Data Social History Tobacco Use Types Packs/Day Years [...] Description 03/07/2025 12:45 PM EST Office Visit [facility] [address] [place] [address] Parvin, Crystal [address] [place] [address] documented as of this encounter Goals Goal [...] Plan Patient has chronic kidney disease No Gamboa, Radha, PharmD Weekly blood pressure task Care Plan [...] SERUM PANEL Routine 01/27/2025 10:43 AM EST CBC Routine 01/27/2025 10:43 AM EST T4, FREE Routine 01/27/2025 10:43 AM EST HEMOGLOBIN A1C Routine 01/27/2025 10:43 AM EST documented in this encounter Results * Vitamin B12 (Cobalamin) and Folate Panel, Serum (01/27/2025 10:43 AM EST) Vitamin B12 287 200 - 900 pg/mL [facility] Comment:NORMAL 200-900 PG/ML INDETERMINATE 160-199 PG/ML DEFICIENT < 160 PG/ML Folate 11.3 > or = 4.0 ng/mL [facility] Comment:Reference Values:> o r = 4.0 ng/mL< 4.0 ng/mL suggests folate deficiency Methotrexate, aminopterin and folinic acid(leucovorin) are chemotherapeutic agents whose molecularstructures are similar to folate; therefore, the Architectfolate assay cannot be used for patients using these drugs. 01/27/2025 10:4 3 AM EST 01/27/2025 10:43 AM EST Generic External Data Provider LAB BLOOD ORDERAB LES Final Result Performing Organization Address [facility]/ZIP Co de Phone Number [facility] [address] [place] [phone] * T4, Free (01/27/2025 10:43 AM EST) Free T4 (Free Thyroxine) 1.13 0.71 - 1.85 ng/dL [facility] 01/27/2025 10:4 3 AM EST 01/27/2025 10:43 AM EST Generic External Data Provider LAB BLOOD ORDERAB LES Final Result Performing Organization Address [facility] Phone Number [facility] [address] [place] [phone] * Hemoglobin A1c (01/27/2025 10:43 AM EST) Hemoglobin A1c 5.8 <6.0 % [facility] Comment:Hemoglobin A1C Refer ence Range Adults: 4.8 - 6.0 % Non diabetic: < 6.0 % Goal: < 7.0 %Additional Action Suggested: > 8.0 %Note: Hemoglobin A1c results are invalid for patients with abnormal amounts of HbF. Blood transfusions may impact the HbA1c concentration in the patient sample. Estimated Average Glucose 120 mg/dL [facility] Comment:eAG = Estimated ave rage glucose which is %A1C expressed asaverage glucose, using the formula of the M1O-NzjkfwrVggnrxb Glucose study (ADAG), Diabetes Care, Vol.31,#8,Sep. 2007 01/27/2025 10:4 3 AM EST 01/27/2025 10:43 AM EST Generic External Data Provider LAB BLOOD ORDERAB LES Final Result Performing Organization Address [facility] Co de Phone Number [facility] [address] [place] [phone] * (ABNORMAL) CBC (01/27/2025 10:43 AM EST) White Blood Count 9.5 4.8 - 10.8 X10*3/uL [facility] Red Blood Count 4.11(L) 4.20 - 5.50 X10*6/uL [facility] Hemoglobin 12.0 12.0 - 16.0 g/dl [facility] Hematocrit 37.9 37.0 - 47.0 % [facility] Mean Corpuscular Volume 92.2 80.0 - 98.0 fL [facility] Mean Corpuscular Hemoglobin 29.2 27.0 - 33.0 pg [facility] Mean Corpuscular HGB Conc 31.7 31.0 - 35.0 g/dl [facility] Red Cell Distribution Width 13.9 11.0 - 16.0 % [facility] Platelet Count 266 160 - 400 X10*3/uL [facility] Mean Platelet Volume 11.0 9.4 - 12.3 fL [facility] NRBC Pct Auto 0.0 0.0 - 0.2 /100WBC [facility] NRBC Abs Auto 0.000 0.0 - 0.012 X10*3/uL [facility] 01/27/2025 10:4 3 AM EST 01/27/2025 10:43 AM EST us Generic External Data Provider LAB BLOOD ORDERAB LES Final Result Performing Organization Address City/State/[facility] Co de Phone Number [facility] [address] [place] [phone] documented in this encounter Visit Diagnoses Not on filedocumented in this encounter Additional Health Concerns Active [...] documented as of this encounter Care Teams Licensed Optician Relationship Specialty Start Date End Date Yeni Willoughby MD [address] [place] [address] PCP - General Family Medicine 02/27/18 Quoc Bermudez, RazD [address] [place] [address] Pharmacist Internal Medicine 02/14/22 [facility] 11/02/23 documented as of this encounter
--- OUTSIDE RECORDS SUMMARY | 2025-01-27 12:36 | XMS_ITS | Encounter Summary ---
Author Organization [employer] Address [address] [facility] 7t [place] [address] Care Team Providers Care Floor Framer Name Role Phone Yeni Willoughby MD Primary Care Provider [phone] Quoc Bermudez PharmD Unavailable [phone] Encounter Details Date Type Department Care Team ([facility] Contact Info) Description 10/18/2023 Orders Only [facility] [address] [place], [place] [phone] Yeni Willoughby MD [address] [place] [address] Hypomagnesemia (Primary Dx); Dehydration; CHEMO (acute kidney injury) ([facility]/HCC); Type 2 diabetes mellitus without complication, without long-term current use of insulin ([facility]) Social History Tobacco Use Types Packs/Day Years [...] Description 03/07/2025 12:45 PM EST Office Visit [facility] [address] [place] [address] Parvin, Crystal [address] [place] [address] Scheduled Orders Name Type Priority Associated Diagnoses Orde r Schedule Basic Metabolic Panel Lab Routine Hypomagnesemia Dehydration CHEMO (acute kidney injury) ([facility]) Expected: 10/23/2023 (Approximate), Expires: 10/17/2024 Magnesium Lab Routine Hypomagnesemia Dehydration CHEMO (acute kidney injury) ([facility]) Expected: 10/23/2023 (Approximate), Expires: 10/17/2024 documented as of this encounter Goals Goal Patient Goal Type Associated Problems Recent Progress Patient-Stated? Author Blood Pressure < 140/90 Blood Pressure 120/80(2024 11:30 AM EST) No Quoc Bermudez, Shannen Hemoglobin A1c < 7 Result Component 5.8( 10:43 AM EST) No Quoc Bermudez PharmD documented as of this encounter Visit Diagnoses Diagnosis Hypomagnesemia- Primary Disorders of magnesium metabolism Dehydration CHEMO (acute kidney injury) Type 2 diabetes mellitus without complication, without long-term current use of insulin (HCC) documented in this encounter Additional Health Concerns Assessment Noted Time PHQ-9 Depression Total Score: 0 05/25/19 9:46 AM EDT documented as of this encounter Care Teams Floor Framer Relationship Specialty Start Date End Date Yeni Willoughby MD [address] [place] [address] PCP - General Family Medicine 02/27/18 Quoc Bermudez, Shannen [address] [place] [address] Pharmacist Internal Medicine 02/14/22 [facility] 11/02/23 documented as of this encounter
--- OUTSIDE RECORDS SUMMARY | 2025-01-27 12:36 | XMS_ITS | Encounter Summary ---
Author Organization [employer] Address [address] [place] [address] 7 [place] [address] Care Team Providers Care Trouble Tracer Name Role Phone Yeni Willoughby MD Primary Care Provider [phone] Quoc Bermudez PharmD Unavailable [phone] Encounter Details Date Type Department Care Team ([facility] Contact Info) Description 04/08/2022 Orders Only [facility] [address] [place], [place] [phone] Yeni Willoughby MD [address] [place] [address] Controlled type 2 diabetes mellitus with hyperglycemia, without long-term current use of insulin ([facility]) (Primary Dx); History of Graves' disease Social [...] Department Care Team (Late Contact Info) Description 03/07/2025 12:45 PM EST Office Visit [facility] [address] [place], [place] [phone] Crystal Melendrez [address] [place] [address] documented as of this encounter Visit Diagnoses Diagnosis Controlled type 2 diabetes mellitus with hyperglycemia, without long-term current use of insulin (HCC)- Primary History of Graves' disease documented in this encounter Care Teams Trouble Tracer Relationship Specialty Start Date End Date Yeni Willoughby MD [address] [place] [address] PCP - General Family Medicine 02/27/18 Quoc Bermudez PharmD [address] [place] [address] Pharmacist Internal Medicine 02/14/22 [facility] 11/02/23 documented as of this encounter
--- OUTSIDE RECORDS SUMMARY | 2025-01-27 12:36 | XMS_ITS | Encounter Summary ---
Author Organization [employer] Address [address] [facility] 7t [place] [address] Care Team Providers Care Driver Sales Name Role Phone Yeni Willoughby MD Primary Care Provider [phone] Quoc Bermudez PharmD Unavailable [phone] Encounter Details Date Type Department Care Team (Latest Contact Info) Description 01/22/2025 Travel Social History Tobacco Use Types Packs/Day Years [...] [facility] [address] [place] [address] Parvin, Crystal [address] [place] [address] documented as of this encounter Goals Goal [...] documented as of this encounter Care Teams Driver Sales Relationship Specialty Start Date End Date Yeni Willoughby MD [address] [place] [address] PCP - General Family Medicine 02/27/18 Quoc Bermudez, PharmD [address] [place] [address] Pharmacist Internal Medicine 02/14/22 [facility] 11/02/23 documented as of this encounter
--- OUTSIDE RECORDS SUMMARY | 2025-01-27 12:36 | XMS_ITS | Encounter Summary ---
Author Organization [employer] Address [address] [facility] 7t [place] [address] Care Team Providers Care Chief Pilot Name Role Phone Yeni Willoughby MD Primary Care Provider Quoc Bermudez PharmD Unavailable [phone] Reason for Visit * Reason Comments Med Refill Encounter Details Date Type Department Care Team ([facility] st Contact Info) Description 06/05/2024 Refill [facility] MED[facility] [address] [place], [place] [phone] Yeni Willoughby MD [address] [place] [address] Chronic low back pain, unspecified back pain [...] Description 03/07/2025 12:45 PM EST Office Visit [facility]ULT [facility] [address] [place] [address] Crystal Melendrez [address] [place] [address] documented as of this encounter Goals Goal [...] documented as of this encounter Care Teams Chief Pilot Relationship Specialty Start Date End Date Yeni Willoughby MD [address] [place] [address] PCP - General Family Medicine 02/27/18 Quoc Bermudez, PharmD [address] [place] [address] Pharmacist Internal Medicine 02/14/22 [facility] 11/02/23 documented as of this encounter
--- OUTSIDE RECORDS SUMMARY | 2025-01-27 12:37 | XMS_ITS | Encounter Summary ---
Author Organization [employer] Address [address] [facility] 7t [place] [address] Care Team Providers Care Hoop Bender Tank Name Role Phone Yeni Willoughby MD Primary Care Provider [phone] Quoc Bermudez PharmD Unavailable [phone] Encounter Details Date Type Department Care Team ([facility] Contact Info) Description 02/07/2024 Orders Only [facility] [address] [place], [place] [phone] Yeni Willoughby MD [address] [place], [place] [phone] Social History Tobacco Use Types Packs/Day Years [...] 12:45 PM EST Office Visit [facility] [address] [place] [address] Parvin, Crystal [address] [place] [address] documented as of this encounter Goals Goal [...] documented as of this encounter Care Teams Hoop Bender Tank Relationship Specialty Start Date End Date Yeni Willoughby MD [address] [place] [address] PCP - General Family Medicine 02/27/18 Quoc Bermudez PharmD [address] [place] [phone] Pharmacist Internal Medicine 02/14/22 [facility] 11/02/23 documented as of this encounter
--- OUTSIDE RECORDS SUMMARY | 2025-01-27 12:37 | XMS_ITS | Encounter Summary ---
Author Organization [employer] Address [address] [facility] 7t [place] [address] Care Team Providers Care Seafood Process Worker Name Role Phone Yeni Willoughby MD Primary Care Provider [phone] Quoc Bermudez PharmD Unavailable [phone] Encounter Details Date Type Department Care Team ([facility] Contact Info) Description 02/07/2024 Orders Only [facility] [address] [place], [place] [phone] Yeni Willoughby MD [address] [place], [place] [phone] Hyperkalemia (Primary Dx); Stage 3a chronic kidney [...] Description 03/07/2025 12:45 PM EST Office Visit [facility] [address] [place] [address] Parvin, Crystal [address] [place] [address] Scheduled Orders Name Type Priority Associated Diagnoses Orde r Schedule Basic Metabolic Panel Lab Routine Hyperkalemia Stage 3a chronic kidney disease (CMS/HCC) Expected: 02/07/2024 (Approximate), Expires: 02/06/2025 documented as of this encounter Goals Goal Patient Goal Type Associated Problems Recent Progress Patient-Stated? Author Blood Pressure < 140/90 Blood Pressure 120/80(2024 11:30 AM EST) No Quoc Bermudez, PharmD Hemoglobin [...] documented as of this encounter Care Teams Seafood Process Worker Relationship Specialty Start Date End Date Yeni Willoughby MD [address] [place] [address] PCP - General Family Medicine 02/27/18 Quoc Bermudez, RazD [address] [place] [address] Pharmacist Internal Medicine 02/14/22 [facility] 11/02/23 documented as of this encounter
--- OUTSIDE RECORDS SUMMARY | 2025-01-27 12:37 | XMS_ITS | Encounter Summary ---
Author Organization [employer] Address [address] [facility] 7t [place] [address] Care Team Providers Care Video Editor Name Role Phone Yeni Willoughby MD Primary Care Provider [phone] Quoc Bermudez PharmD Unavailable [phone] Encounter Details Date Type Department Care Team ([facility] Contact Info) Description 05/26/2023 Orders Only [facility] [address] [place], [place] [phone] Yeni Willoughby MD [address] [place], [place] [phone] Postablative hypothyroidism (Primary Dx); Hypomagnesemia Social History [...] Description 03/07/2025 12:45 PM EST Office Visit [facility] [address] [place] [address] Parvin, Crystal [address] [place] [address] documented as of this encounter Goals Goal [...] Stimulating Hormone 0.05(L) 0.32 - 4.0 uIU/mL [facility] Comment:TSH 3rd Generation ( [facility]) Blood Venous blood specimen / Unknown 06/21/2023 11:29 AM EDT 06/21/2023 1:52 PM EDT us Yeni Willoughby MD LAB BLOOD ORDERABLES Final Resul t Performing Organization Address City/[facility] Co de Phone Number [facility] [address] [place] [phone] * T4, Free (06/21/2023 11:29 AM EDT) Free T4 (Free Thyroxine) 1.31 0.71 - 1.85 ng/dL [facility] Blood Venous blood specimen / Unknown 06/21/2023 11:29 AM EDT 06/21/2023 1:52 PM EDT us Yeni Willoughby MD LAB BLOOD ORDERABLES Final Resul t Performing Organization Address [facility] Co de Phone Number [facility] [address] [place] [phone] documented in this encounter Visit Diagnoses Diagnosis Postablative hypothyroidism- Primary Other postablative hypothyroidism Hypomagnesemia Disorders of magnesium metabolism documented in this encounter Additional Health Concerns Assessment Noted Time PHQ-9 Depression Total Score: 0 05/25/19 24 9:46 AM EDT documented as of this encounter Care Teams Video Editor Relationship Specialty Start Date End Date Yeni Willoughby MD [address] [place] [address] PCP - General Family Medicine 02/27/18 Quoc Bermudez, RazD [address] [place] [address] Pharmacist Internal Medicine 02/14/22 [facility] 11/02/23 documented as of this encounter
--- OUTSIDE RECORDS SUMMARY | 2025-01-27 12:37 | XMS_ITS | Encounter Summary ---
Author Organization [employer] Address [address] [facility] 7t [place] [address] Care Team Providers Care Surfacing Machine Operator Name Role Phone Yeni Willoughby MD Primary Care Provider [phone] Quoc Bermudez PharmD Unavailable [phone] Encounter Details Date Type Department Care Team ([facility] Contact Info) Description 06/21/2023 Orders Only [facility] MED[facility] [address] [place], [place] [phone] Yeni Willoughby MD [address] [place], [place] [phone] Social History Tobacco Use Types Packs/Day Years [...] Description 03/07/2025 12:45 PM EST Office Visit [facility] ADULT [facility] [address] [place] [address] Crystal Melendrez [address] [place] [address] documented as of this encounter Goals Goal [...] documented as of this encounter Care Teams Surfacing Machine Operator Relationship Specialty Start Date End Date Yeni Willoughby MD [address] [place] [address] [phone] PCP - General Family Medicine 02/27/18 Quoc Bermudez PharmD [address] [place] [phone] Pharmacist Internal Medicine 02/14/22 [facility] 11/02/23 documented as of this encounter
--- OUTSIDE RECORDS SUMMARY | 2025-01-27 12:37 | XMS_ITS | Encounter Summary ---
Author Organization [employer] Address [address] [facility] 7t [place] [address] Care Team Providers Care Pet Care Worker Name Role Phone Yeni Willoughby MD Primary Care Provider [phone] Quoc Bermudez PharmD Unavailable [phone] Reason for Visit * Reason Comments Med Refill Encounter Details Date Type Department Care Team ([facility] Contact Info) Description 12/18/2022 Refill [facility] MED[facility]INE [address] [place] [address] Heidy Garza, ANP [address] [place] [address] Social History Tobacco Use Types Packs/Day Years [...] Description 03/07/2025 12:45 PM EST Office Visit [facility] ADULT DENTAL [address] [place] [address] Maycol Melendrezaris [address] [place] [address] documented as of this encounter Goals Goal Patient Goal Type Associated Problems Recent Progress Patient-Stated? Author Blood Pressure < 140/90 Blood Pressure 120/80( 025 11:30 AM EST) No Quoc Bermudez, RazD documented as of this encounter Visit Diagnoses Not on filedocumented in this encounter Additional Health Concerns Assessment Noted Time PHQ-9 Depression Total Score: 3 06/02/19 23 11:01 AM EDT documented as of this encounter Care Teams Pet Care Worker Relationship Specialty Start Date End Date Yeni Willoughby MD [address] [place] [address] PCP - General Family Medicine 02/27/18 Quoc Bermudez, PharmD [address] [place] [address] Pharmacist Internal Medicine 02/14/22 [facility] 11/02/23 documented as of this encounter
--- OUTSIDE RECORDS SUMMARY | 2025-01-27 12:37 | XMS_ITS | Encounter Summary ---
Author Organization [employer] Address [address] [place] [address] 7t [place] [address] Care Team Providers Care Agricultural Produce Washer Name Role Phone Yeni Willoughby MD Primary Care Provider [phone] Quoc Bermudez PharmD Unavailable [phone] Reason for Visit * Reason Onset Date Comments Referral 11/04/2022 Encounter Details Date Type Department Care Team ([facility] st Contact Info) Description 11/04/2022 Telephone [facility] MED[facility]INE [address] [place], [place] [phone] Yeni Willoughby MD [address] [place], [place] [phone] Referral Social History Tobacco Use Types Packs/Day [...] [facility] [address] [place], [place] [phone] Parvin, Crystal [address] [place], [place] [phone] documented as of this encounter Goals Goal Patient Goal Type Associated Problems Recent Progress Patient-Stated? Author Blood Pressure < 140/90 Blood Pressure 120/80( 025 11:30 AM EST) No Quoc Bermudez, PharmD documented as of this encounter Visit Diagnoses Not on filedocumented in this encounter Additional Health Concerns Assessment Noted Time PHQ-9 Depression Total Score: 3 06/02/19 23 11:01 AM EDT documented as of this encounter Care Teams Agricultural Produce Washer Relationship Specialty Start Date End Date Yeni Willoughby MD [address] [place] [address] PCP - General Family Medicine 02/27/18 Quoc Bermudez, PharmD [address] [place] [address] Pharmacist Internal Medicine 02/14/22 [facility] 11/02/23 documented as of this encounter
== END 2025-01-27 10:13 | disposition home or self-care (01) ==
LOC: HO.LAB 10:12
PROVIDERS: Physician Assistant Medical; PCP Family Medicine; Visit Provider Student in an Organized Health Care Education/Training Program
DX: Z13.1 Encounter for screening for diabetes mellitus (principal); Z13.21 Encounter for screening for nutritional disorder; E89.0 Postprocedural hypothyroidism; R53.83 Other fatigue; G47.19 Other hypersomnia
CPT/HCPCS: 36415; 80053; 82306; 82607; 82728; 82746; 83036; 83090; 83921; 84439; 84443; 85027

== ENCOUNTER 2025-01-30 10:46 | Outpatient (AMB) | payer OTHER, SELFPAY ==
[2025-01-30 10:50] VITALS: BP 102/64; PULSE 94; O2SAT 100; BMI 26.1
--- NOTE | 2025-01-30 10:50 | A.OFFVIS_ITS ---
Vital Signs 01/30/25 10:50 Height 5 ft 4 in Weight 151 lb 14.376 oz BMI 26.1 BP 102/64 Blood Pressure Location Lt brachial Position Sitting Pulse 94 Pulse Source Pulse Oximeter Pulse Oximetry (%) 100 Oxygen Delivery Method Room Air Intake Visit Reasons: Hypothyroidism Intake Note: Patient presents today for follow-up on Hypothyroidism. Police Liaison Required: No Accompanied by: Self / Same As Patient Allergies sulfamethoxazole (From Bactrim) Allergy (Severe, Verified 01/30/25 10:55) Itching trimethoprim (From Bactrim) Allergy (Severe, Verified 01/30/25 10:55) Itching codeine (Codeine) Allergy (Intermediate, Verified 01/30/25 10:55) NAUSEA & VOMITING, vomiting fluoxetine (FLUOXETINE) Allergy (Intermediate, Verified 01/30/25 10:55) NAUSEA & VOMITING ibuprofen (IBUPROFEN) Allergy (Intermediate, Verified 01/30/25 10:55) NAUSEA & VOMITING Sulfa (Sulfonamide Antibiotics) Allergy (Mild, Verified 01/30/25 10:55) itching HPI Comments Details: 58-year-old female coming in today for follow up of of hypothyroidism. Patient has history of Graves disease status post radioactive iodine ablation in 2009 now with postablative hypothyroidism. Over the past year in 2023 patient has had consistently low TSH levels ranging anywhere from 0.02-0.24. labs 02/06/2024 show TSH low at 0.06, free T4 normal at 1.26. Dose of levothyroxine has been reduced consistently but TSH remains low. Call with patient's pharmacy: Currently has a prescription for 88 mcg daily , not picked up yet 01/12/24 picked up levothyroxine 100mcg daily 11/22/23 picked up levothyroxine 112 mcg daily 10/19/23 picked up levothyroxine 125 mcg daily 05/02/23 big the levothyroxine 137 mcg daily Labs 02/13/2024 showed TSH low at 0.12, free T4 1.37, total T3 99, TSI antibodies elevated at 337, TSH receptor antibody also elevated at 16.19 02/19/24: Dose of levothyroxine reduced from 100 mcg daily to 88 mcg daily 03/19/2024: TSH 0.28, free T4 1.34, total T3 81 03/19/2024: Levothyroxine reduced from 88 mcg daily to 75 mcg daily 05/20/24: TSH 4.96, free T4 1.16, total T3 low at 63 reports strict adherence, adminitration reports increased fatigue She also has Graves orbitopathy, says she was discharged from the [place] [facility], has seen Dr Lucio Herbert in the past, was advised surgery , she is interested in getting evaluated for Tepezza, has a lot of teariness we referred her again , she met with Dr. Herbert 01/2024, they have called her back for 1 year follow up, she is not sure why she was not a candidate for Tapazole. I went over her records, seems like she is thought to have mild thyroid eye disease not requiring any active treatment. Interval history 01/27/25 TSH 4.57, FT4 1.[address] Moulton but she is not currently in any medication She wonders if there is any therapy to reverse her ophthalmology. She reports that she was offered decompression surgery but was hesitant given that she was offered a 50% change of eye vision as result of the surgery. Taking Levothyroxine 75 mcg (she cant recall the dose), taking in the AM, fasting, waits 1 hour to take the other medications. Reports fatigue, cold intolerance, intermittent constipation. Denies heat intolerance, diarrhea, palpitation, anxiety, weight changes, mood changes, tremors, increased diaphoresis or dry skin. She stopped using Trulicity as she is concerned that she has lost muscle and she thinks this is part of the reason she is tired Patient denies any difficulty swallowing, pain on swallowing or voice changes or difficulty breathing. Patient denies any history of childhood neck radiation. Denies having ever used lithium, amiodarone or biotin supplements. Patient denies any family history of thyroid cancer. Graves disease in cousin. Physical exam: General: Well appearing. NAD. Neck/Thyroid: Thyroid not palpable, no nodules. Eyes: No conjunctival injection, not lid lag. Moderate-severe proptosis bilaterally CV: RRR, no murmur. No edema. Resp:Lungs clear to auscultation bilaterally Abdomen: Soft, nontender. nondistended Extremities/Neuro: No weakness or tremor of outstretched hands Laboratory Tests 01/27/25 10:43 TSH 4.57 H Free T4 1.13 Laboratory Tests 03/06/21/23 09/22/23 10:30 11:29 11:11 TSH 0.06 L 0.05 L 0.06 L Free T4 1.43 1.31 1.41 10/21/23 11/22/23 01/12/24 10:23 10:18 11:55 TSH 0.02 L 0.05 L Free T4 1.28 1.54 1.32 01/30/24 02/06/24 10:20 12:07 TSH 0.24 L 0.06 L Free T4 1.38 1.26 Laboratory Tests 03/19/24 05/20/24 10:22 10:00 TSH 0.28 L 4.96 H Free T4 1.34 1.14 Total T3 81 63 L Laboratory Tests 01/30/24 02/06/24 02/13/24 10:20 12:07 10:03 TSH 0.24 L 0.06 L 0.12 L Free T4 1.38 1.26 1.37 Total T3 99 Thyroid Stim Immunoglob 337 H TSH Receptor Ab 16.19 H PFSH Medical History (Updated 12/17/24 @ 11:28 by JOSE Pike) Exocrine pancreatic insufficiency CAD (coronary artery disease) [place] (obstructive sleep apnea) [place] on CPAP Graves' eye disease Transaminitis History of Graves' disease Pilonidal cyst Substance abuse Nicotine dependence, cigarettes, uncomplicated History of abnormal mammogram Hidradenitis suppurativa Hyperlipidemia Hypertension Surgical History Hx of cataract surgery History of colonoscopy (~2013) History of bunionectomy (~2011) History of axillary surgery (~2013) History of cholecystectomy History of umbilical hernia repair (~2016) Family History Paternal Aunt Breast cancer Mother Cancer of mandible Other [place] (obstructive sleep apnea) Social History Household Members: Children Housing: Apartment Do you presently have visiting nurse or other home services: No Alcohol intake: never Patient Tobacco Use Status: Current everyday Tobacco user Tobacco use type: Cigarette Cigarette Packs Per Day: 0.75 Cigarettes Per Day: 15 Years Smoked: 36 (onset age 19) Substance Use Type: Crack/Cocaine service: No Current occupational status: unemployed Female Reproductive History Menstrual Age of Menarche: 9 Physical Exam Vital Signs: Last Vital Signs Pulse 94 01/30/25 10:50 BP 102/64 01/30/25 10:50 Pulse Ox 100 01/30/25 10:50 Oxygen Delivery Method Room Air 01/30/25 10:50 BMI result Body Mass Index 26.1 Assessment & Plan Assessment & Plan (1) Hypothyroid: Code(s): E03.9 - Hypothyroidism, unspecified Category: Medical Qualifiers: Hypothyroidism type: postablative Qualified Code(s): E89.0 - Postprocedural hypothyroidism Plan: 58-year-old female with past medical history significant for Graves disease status post radioactive iodine ablation in 2009 who is being managed for postabl ative hypothyroidism. Over the past year her dose of levothyroxine has been reduced consistently TSH was repeatedly coming as low.. Her weight based dose is close to 112 mcg daily. 03/19/2024: TSH 0.28, free T4 1.34, total T3 81 03/19/2024: Levothyroxine reduced from 88 mcg daily to 75 mcg daily 05/20/24: TSH 4.96, free T4 1.16, total T3 low at 63 Back when she was on the 88 mcg daily her TSH was low, so I am not sure if we need to go back to 88 or not. 01/27/25 TSH 4.57, FT4 1.13. Overall, in elderly patients is not unreasonable to allow for mild TSH elevations like in this case, but her persistent symptoms might require some more dose. Given that 88 mcg suppressed TSH too much, and 75 mcg seems slightly insufficient, an in-between dose will be suggested given persistent symptoms of fatigue. Plan: - Take 75 mcg daily and take an extra 1/2 tablet (37.25 mcg) on Sundays. It seems like this was previously recommended but patient did not follow through with it -ordered TSH, free T4 total T3 in 6 weeks, to assess adequacy of the dose -follow up in 6 months (2) Graves' eye disease: Code(s): E05.00 - Thyrotoxicosis with diffuse goiter without thyrotoxic crisis or storm Category: Medical Plan: Patient also has Graves Graves eye disease.Per my examination she has moderate to severe grade thyroid eye disease, with a clinical activity score of at least least 2. She is interested in getting evaluated for tip has a. She has seen Dr. Herbert in the past and says was advised reconstructive surgery where she does not want surgery. She is interested in medical management. We sent referral to Dr. Moulton office in January 2024 and patient states she had an appointment in now has 1 year follow up for plan. Per ophthalmology notes thyroid eye disease is mild and she is not a candidate for medication but needs better control of thyroid disease. Plan: Regular follow up with Ophthalmology Plan 35 minutes spent reviewing previous records, labs, imaging, education and docume nting in the chart Orders: Orders Free T4 (Free Thyroxine) Today E89.0 - Postprocedural hypothyroidism TSH reflex Free T4 6 Weeks E89.0 - Postprocedural hypothyroidism Triiodothyronine T3 Total Today E89.0 - Postprocedural hypothyroidism Patient Instructions: [place] Levotiroxina 1 tableta (75 mcg) diaria y tome 1/2 tableta extra (37.25 mcg) los patricia. Repitase los analisis en 6 semanas Coding Level of Care Code Complex visit Add On [id number] Diagnoses Postablative hypothyroidism E89.0 Hypothyroidism type: postablative Graves' eye disease E05.00
== END 2025-01-30 11:25 | disposition home or self-care (01) ==
LOC: HO.ENCR 10:47
PROVIDERS: PCP Family Medicine; Visit Provider Student in an Organized Health Care Education/Training Program
DX: E89.0 Postprocedural hypothyroidism (principal); E05.00 Thyrotoxicosis with diffuse goiter without thyrotoxic crisis or storm
CPT/HCPCS: 99214; G2211

== ENCOUNTER → 2025-01-30 10:46 | Outpatient (BNVA) | payer OTHER, SELFPAY | PROVIDERS: PCP Family Medicine; Visit Provider Student in an Organized Health Care Education/Training Program | DX: E89.0 Postprocedural hypothyroidism (principal); E05.00 Thyrotoxicosis with diffuse goiter without thyrotoxic crisis or storm; Z79.899 Other long term (current) drug therapy | CPT/HCPCS: 99212 ==